=== PATIENT | male | born 1960 | race African-American/Black ===

== ENCOUNTER 2016-07-25 11:53 | Emergency (ER) | payer OTHER ==
[~2016-07-25] VITALS: Ht 190.5 cm; Wt 100.0 kg
[~2016-07-25 11:53] MED LIST: ACET325S8 PO; APIX5TAB PO; BISA5TAB PO; GABA300C3 PO; INSU100V2 SQ; LANTUS2P SC; LEXA5SOL PO; LISI-360 PO; MILK2400 PO; NITR.4 SL; SIMV40 PO
[2016-07-25 11:56] VITALS: BP 149/82; PULSE 71; RESP 15; TEMP 98.5; O2SAT 98
[2016-07-25] MEDS ORDERED: SIMV40TA PO (12:10)
[2016-07-25] MEDS ORDERED: GABA300C5 PO (12:10)
[2016-07-25] MEDS ORDERED: GLIM4TAB PO (12:10)
[2016-07-25] MEDS ORDERED: LISI10TA3 PO (12:11)
--- NOTE | 2016-07-25 12:17 | PD ---
HPI Chief Complaint: Musculoskeletal Complaint Time Seen by Provider: 12:08 Travel History International Travel<30 days: No Contact w/Intl Traveler<30days: No Traveled to known affect area: No History of Present Illness HPI The patient is a 56-year-old after [place] male who presents emergency department for left hand swelling. The patient has a history of previous CVA, has difficulty using the left upper extremity. The patient was outside the wheelchair earlier today and noticed that his left hand was swollen. He does have decreased sensation to left upper extremity secondary to previous CVA denies any pain. He does complain of mild swelling to the left hand, but denies any obvious swelling to left arm. He denies any known trauma to the left hand, but does note decreased sensation secondary to his previous CVA. He denies any previous history of pulmonary embolism or DVT. The patient has taken Eliquis in the past, however, was taken off of the medication after he developed a bleeding ulcer, according to his report. Symptoms are mild, no known alleviating or exacerbating factors. PFSH Past Medical History Cardiovascular Problems: Yes (2014) Cerebrovascular Accident: Yes Diabetes: Yes Patient Takes Glucophage: No Diminished Hearing: No Myocardial Infarction: Yes Past Surgical History Other Surgery: Yes (THROAT AND ARM SURGERY PER PT) Social History Alcohol Use: No Tobacco Use: No Substance Use: No Allergies-Medications (Allergen,Severity, Reaction): Coded Allergies: No Known Allergies (Unverified , 03/23/15) Reported Meds & Prescriptions Reported Meds & Active Scripts Active Reported Lisinopril 10 Mg Tab 10 Mg PO DAILY Gabapentin 300 Mg Cap 300 Mg PO BID Glimepiride 4 Mg Tab 4 Mg PO BIDAC Simvastatin 40 Mg Tab 40 Mg PO HS Review of Systems Except as stated in HPI: all other systems reviewed are Neg Musculoskeletal: Positive: Edema, No: Pain Neurologic: Positive: Other (history of previous CVA with diminished ability to use the left upper extremity and decreased sensation of the left upper extremity) Physical Exam Narrative GENERAL: Awake, alert, 56-year-old male who appears his stated age and is in no acute respiratory distress. SKIN: Focused skin assessment warm/dry. HEAD: Atraumatic. Normocephalic. EYES: No injection or drainage. ENT: No nasal bleeding or discharge. Mucous membranes pink and moist. NECK: Trachea midline. No JVD. CARDIOVASCULAR: Regular rate and rhythm. No murmur appreciated. RESPIRATORY: No accessory muscle use. Clear to auscultation. Breath sounds equal bilaterally. GASTROINTESTINAL: Abdomen soft, non-tender, nondistended. Hepatic and splenic margins not palpable. MUSCULOSKELETAL: The left upper extremity does reveal swelling of the left hand. Positive left radial pulse. Contractures noted of the hand with diminished ability to fully extend and flex the left elbow as well as extend the left shoulder. No obvious edema noted of the left upper extremity. NEUROLOGICAL: Awake and alert. No obvious cranial nerve deficits. Diminished use of left upper extremity. Normal speech. PSYCHIATRIC: Appropriate mood and affect; insight and judgment normal. Data Data Last Documented VS Vital Signs Date Time Temp Pulse Resp B/P Pulse Ox O2 Delivery O2 Flow Rate FiO2 07/25/16 11:56 98.5 71 15 149/82 98 Orders Hand, Limited (2vws) (07/25/16 ) Us Arm Venous Doppler (07/25/16 ) MDM Medical Decision Making Medical Screen Exam Complete: Yes Emergency Medical Condition: Yes Medical Record Reviewed: Yes Interpretation(s) Ultrasound of the arm reveals no DVT identified. Excellent X-ray of the right hand reveals no acute bony findings. Differential Diagnosis Differential diagnoses includes dependent edema, fracture, contusion, hematoma, DVT. Narrative Course X-ray left hand was obtained. Ultrasound of the left upper extremity was ordered. X-rays negative for fracture. Ultrasound is negative for DVT. Most likely this is dependent edema secondary to heat and inability to use left upper 70 secondary to previous CVA. The patient is advised elevate the affected extremity and apply ice as needed. Patient is stable for outpatient follow-up. Diagnosis Primary Impression: Edema Qualified Code: R60.9 - Edema, unspecified type Patient Instructions: General Instructions Additional Instructions: Elevate the left arm, ice as needed, follow-up with your primary physician. Please provide a patient a copy of his ultrasound results and x-ray results at discharge. Disposition: 01 DISCHARGE HOME Condition: Stable Dre Ellison MD July 25, 2016 12:17
--- NOTE | 2016-07-25 14:15 | RADRPT ---
EXAM DATE/TIME: 07/25/2016 13:06 [facility] COMPARISON: No previous studies available for comparison. INDICATIONS : Left hand swelling. MEDICAL HISTORY : Stroke. SURGICAL HISTORY : None. ENCOUNTER: Initial ACUITY: 1 day PAIN SCORE: 0/10 LOCATION: Left hand. FINDINGS: Two view examination of the left hand demonstrates no destructive change, dislocation, or fracture. The joint spaces are maintained. Bony mineralization is normal. There is diffuse soft tissue swelli ng CONCLUSION: No acute bony findings Scot Montemayor MD on July 25, 2016 at 14:11 Board Certified Radiologist. This report was verified electronically.
--- NOTE | 2016-07-25 14:19 | RADRPT ---
EXAM DATE/TIME: 07/25/2016 12:27 [facility] COMPARISON: No previous studies available for comparison. INDICATIONS : Left arm swelling. MEDICAL HISTORY : Cerebrovascular accident. Heart attack. Diabetes. SURGICAL HISTORY : Throat and arm surgery per patient. ENCOUNTER: Initial ACUITY: 1 day PAIN SCORE: 6/10 LOCATION: Left arm FINDINGS: There is spontaneous flow documented in the brachial, basilic, cephalic, axillary, and subclavian vei ns. The vessels are compressible and augmentation response is documented. No filling defects are se en. The flow is phasic with respiration. Direction of flow in the jugular vein is caudal. CONCLUSION: No DVT identified. Nitin Vail MD on July 25, 2016 at 14:16 Board Certified Radiologist. This report was verified electronically.
[2016-07-25 14:55] VITALS: BP 149/82
== END 2016-07-25 14:59 | disposition home or self-care (01) ==
LOC: NEPE 11:53
DX: M79.89 Other specified soft tissue disorders (principal)
CPT/HCPCS: 73120; 93971

== ENCOUNTER 2016-09-01 04:45 | Inpatient (IN) | payer OTHER ==
[2016-09-01] VITALS (12 sets, daily range): BP systolic 119–191; BP diastolic 69–106; PULSE 78–104; RESP 16–18; TEMP 97.6–100.3; O2SAT 93–98
[~2016-09-01] VITALS: Ht 185.4 cm; Wt 98.4 kg
[~2016-09-01 04:45] MED LIST changes: -ACET325S8 PO; -APIX5TAB PO; -BISA5TAB PO; -GABA300C3 PO; +GABA300C5 PO; +GLIM4TAB PO; -INSU100V2 SQ; -LANTUS2P SC; -LEXA5SOL PO; -LISI-360 PO; +LISI10TA3 PO; -MILK2400 PO; -NITR.4 SL; -SIMV40 PO; +SIMV40TA PO
[2016-09-01] MEDS ORDERED: ATOR1TAB18 PO (04:52)
[2016-09-01] MEDS ORDERED: CARV6.252 PO (04:52)
[2016-09-01] MEDS ORDERED: LOPE2CAP PO (04:52)
[2016-09-01] MEDS ORDERED: ALBUAER3 INH (04:52)
[2016-09-01] MEDS ORDERED: SITA25 PO (04:52)
[2016-09-01] MEDS ORDERED: ONDANSETRON HCL 4 MG/2 ML VIAL ONE (04:54)
[2016-09-01] MEDS ORDERED: ONDANSETRON HCL 4 MG/2 ML VIAL IV PUSH ONE (05:00)
[2016-09-01] MEDS ORDERED: SODIUM CHLOR 0.9% 1000 ML INJ 1,000 ML IV ONE ×2 (05:00)
[2016-09-01] MEDS ORDERED: ACETAMINOPHEN 325 MG TAB PO ONE (05:00)
[2016-09-01 05:15] LABS: BASOPHIL % 0.5 % (0.0-2.0); EOSINOPHIL # 0.1 TH/MM3 (0-0.4); EOSINOPHIL % 0.9 % (0.0-4.0); HEMATOCRIT 36.4 % (39.0-51.0); HEMO FLAGS DIFF FINAL; LYMPH % 11.1 % (9.0-44.0); LYMPHOCYTE # 0.7 TH/MM3 (1.0-4.8); MONO % 4.8 % (0.0-8.0); NEUT % 82.7 % (16.0-70.0); PLATELET COUNT 191 TH/MM3 (150-450); RED BLOOD COUNT 4.14 MIL/MM3 (4.50-5.90); RED CELL DISTRIBUTION WIDTH 14.2 % (11.6-17.2); WHITE BLOOD COUNT 6.1 TH/MM3 (4.0-11.0)
[2016-09-01 05:26] LABS: BLOOD GAS VENOUS BASE EXCESS -6.9 mmol/L (-2-2); BLOOD GAS VENOUS HCO3 18 mmol/L (22-26); BLOOD GAS VENOUS O2 CONTENT 12.7 Vol % (9.0-17.0); BLOOD GAS VENOUS O2 HGB SAT 79 % (70-76); BLOOD GAS VENOUS PCO2 35 mmHg (44-48); BLOOD GAS VENOUS PO2 48 mmHg (35-40); BLOOD GAS VENOUS pH 7.33 (7.360-7.400); CRITICAL VALUE NO; FIO2 21 %; OXYGEN DEVICE ROOM AIR; TEMP CORR TO 98.6
[2016-09-01 05:27] LABS: DRAW SITE LEFT HAND; STAT YES
[2016-09-01 05:33] LABS: APTT (PATIENT) 18.3 SEC (24.3-30.1)
[2016-09-01 05:36] LABS: BACTERIA, URINE RARE /hpf; BLOOD, URINE SMALL (NEG); COMMENT (UR) CATH-CULTURE IND; CULTURE IF INDICATED CATH CULTURE IND; GLUCOSE,URINE 300 mg/dL (NEG); KETONE, URINE NEG (NEG); MUCUS URINE FEW /lpf (OCC); NITRITE,URINE NEG (NEG); PH, URINE 5.5 (5.0-8.5); SQUAMOUS EPITHELIAL CELL URINE 2 /hpf (0-5); URINE COLOR YELLOW (YELLW/STRAW)
[2016-09-01 05:37] LABS: ALT (GPT) 31 U/L (12-78); ANION GAP 9 MEQ/L (5-15); AST (GOT) 23 U/L (15-37); BICARBONATE 20.5 MEQ/L (21.0-32.0); BLOOD UREA NITROGEN 22 MG/DL (7-18); CHLORIDE 116 MEQ/L (98-107); GLOMERULAR FILTRATION RATE 37 ML/MIN (>89); MAGNESIUM 1.6 MG/DL (1.5-2.5); POTASSIUM 4.4 MEQ/L (3.5-5.1); SODIUM (NA) 145 MEQ/L (136-145)
--- NOTE | 2016-09-01 05:38 | PD ---
HPI Chief Complaint: GI Complaint Time Seen by Provider: 04:53 Travel History International Travel<30 days: No Contact w/Intl Traveler<30days: No Traveled to known affect area: No History Past Medical History Cardiovascular Problems: Yes (2014) Cerebrovascular Accident: Yes Diabetes: Yes Patient Takes Glucophage: Yes Hearing: No Myocardial Infarction: Yes Tetanus Vaccination: Unknown Influenza Vaccination: Yes Vision or Eye Problem: No Past Surgical History Other Surgery: Yes (THROAT AND ARM SURGERY PER PT) Social History Tobacco Use in Home: No Alcohol Use: No Tobacco Use: No Substance Use: No Allergies-Medications (Allergen,Severity, Reaction): Coded Allergies: No Known Allergies (Unverified , 09/01/16) Reported Meds & Prescriptions Reported Meds & Active Scripts Active Reported Januvia (Sitagliptin Phosphate) 25 Mg Tab 25 Mg PO DAILY Carvedilol 6.25 Mg Tab 6.25 Mg PO BID Proair Hfa 8.5 GM Inh (Albuterol Sulfate) 90 Mcg/Act Aer 2 Puff INH Q6H PRN 108 mcg/actuation Loperamide (Loperamide HCl) 2 Mg Cap 2 Mg PO DIRECTED PRN One capsule after each loose stool. Not to exceed 8 capsules per day. Atorvastatin (Atorvastatin Calcium) 80 Mg Tab 80 Mg PO HS Gabapentin 300 Mg Cap 300 Mg PO BID Glimepiride 4 Mg Tab 4 Mg PO BIDAC Data Data Last Documented VS Vital Signs Date Time Temp Pulse Resp B/P Pulse Ox O2 Delivery O2 Flow Rate FiO2 09/01/16 04:58 16 96 Room Air 09/01/16 04:47 100.3 104 191/106 Orders Ondansetron Inj (Zofran Inj) (09/01/16 04:54) Complete Blood Count With Diff (09/01/16 04:53) Comprehensive Metabolic Panel (09/01/16 04:53) Prothrombin Time / Inr (Pt) (09/01/16 04:53) Act Partial Throm Time (Ptt) (09/01/16 04:53) Lactic Acid Sepsis Protocol (09/01/16 04:53) Magnesium (Mg) (09/01/16 04:53) Phosphorus (Po4) (09/01/16 04:53) Lipase (09/01/16 04:53) Ckmb (Isoenzyme) Profile (09/01/16 04:53) Troponin I (09/01/16 04:53) Urinalysis - C+S If Indicated (09/01/16 04:53) Blood Culture (09/01/16 04:53) Chest, Single Ap (09/01/16 04:53) Blood Gas Venous (Vbg) (09/01/16 04:53) Blood Glucose (09/01/16 04:53) Ecg Monitoring (09/01/16 04:53) Iv Access Insert/Monitor (09/01/16 04:53) Oximetry (09/01/16 04:53) Oxygen Administration (09/01/16 04:53) Acetaminophen (Tylenol) (09/01/16 05:00) Ct Abd/Pel W Iv Contrast(Rout) (09/01/16 04:53) Ondansetron Inj (Zofran Inj) (09/01/16 05:00) Sodium Chlor 0.9% 1000 Ml Inj (Ns 1000 M (09/01/16 05:00) Sodium Chlor 0.9% 1000 Ml Inj (Ns 1000 M (09/01/16 05:00) Urine Culture (09/01/16 05:10) CKMB (09/01/16 04:50) CKMB% (09/01/16 04:50) Iodixanol 320 Inj (Eps) (Visipaque 320 I (09/01/16 05:51) Electrocardiogram (09/01/16 ) Stool Ova And Parasite Screen (09/01/16 05:53) C Diff Toxin Pcr (09/01/16 05:53) Labs Laboratory Tests Test 09/01/16 09/01/16 09/01/16 04:50 05:10 05:16 White Blood Count 6.1 TH/MM3 Red Blood Count 4.14 MIL/MM3 Hemoglobin 12.0 GM/DL Hematocrit 36.4 % Mean Corpuscular Volume 88.0 FL Mean Corpuscular Hemoglobin 29.0 PG Mean Corpuscular Hemoglobin 33.0 % Concent Red Cell Distribution Width 14.2 % Platelet Count 191 TH/MM3 Mean Platelet Volume 9.2 FL Neutrophils (%) (Auto) 82.7 % Lymphocytes (%) (Auto) 11.1 % Monocytes (%) (Auto) 4.8 % Eosinophils (%) (Auto) 0.9 % Basophils (%) (Auto) 0.5 % Neutrophils # (Auto) 5.0 TH/MM3 Lymphocytes # (Auto) 0.7 TH/MM3 Monocytes # (Auto) 0.3 TH/MM3 Eosinophils # (Auto) 0.1 TH/MM3 Basophils # (Auto) 0.0 TH/MM3 CBC Comment DIFF FINAL Differential Comment Prothrombin Time 11.0 SEC Prothromb Time International 1.0 RATIO Ratio Activated Partial 18.3 SEC Thromboplast Time Sodium Level 145 MEQ/L Potassium Level 4.4 MEQ/L Chloride Level 116 MEQ/L Carbon Dioxide Level 20.5 MEQ/L Anion Gap 9 MEQ/L Blood Urea Nitrogen 22 MG/DL Creatinine 1.90 MG/DL Estimat Glomerular Filtration 37 ML/MIN Rate Random Glucose 228 MG/DL Lactic Acid Level 1.6 mmol/L Calcium Level 8.5 MG/DL Phosphorus Level 2.0 MG/DL Magnesium Level 1.6 MG/DL Total Bilirubin 0.6 MG/DL Aspartate Amino Transf 23 U/L (AST/SGOT) Alanine Aminotransferase 31 U/L (ALT/SGPT) Alkaline Phosphatase 86 U/L Total Creatine Kinase 157 U/L Creatine Kinase MB 4.3 NG/ML Troponin I 0.39 NG/ML Total Protein 7.8 GM/DL Albumin 3.4 GM/DL Lipase 110 U/L Urine Color YELLOW Urine Turbidity CLEAR Urine pH 5.5 Urine Specific [place] 1.018 Urine Protein 30 mg/dL Urine Glucose (UA) 300 mg/dL Urine Ketones NEG mg/dL Urine Occult Blood SMALL Urine Nitrite NEG Urine Bilirubin NEG Urine Urobilinogen LESS THAN 2.0 MG/DL Urine Leukocyte Esterase NEG Urine RBC 1 /hpf Urine WBC 1 /hpf Urine Squamous Epithelial 2 /hpf Cells Urine Bacteria RARE /hpf Urine Mucus FEW /lpf Microscopic Urinalysis Comment CATH-CULTURE IND Blood Gas Puncture Site LEFT HAND Blood Gas Patient Temperature 98.6 Venous Blood pH 7.33 Venous Blood Partial Pressure 35 mmHg CO2 Venous Blood Partial Pressure 48 mmHg O2 Venous Blood HCO3 18 mmol/L Venous Blood Oxygen Saturation 79 % Venous Blood Oxygen Content 12.7 Vol % Venous Blood Base Excess -6.9 mmol/L Oxygen Delivery Device ROOM AIR Blood Gas Inspired Oxygen 21 % Edward Benites MD Sep 01, 2016 05:38
[2016-09-01 05:40] LABS: ALKALINE PHOSPHATASE 86 U/L (45-117); CREATINE KINASE 157 U/L (39-308); TOTAL BILIRUBIN ADULT 0.6 MG/DL (0.2-1.0)
--- NOTE | 2016-09-01 05:50 | RADRPT ---
EXAM DATE/TIME: 09/01/2016 04:57 [facility] COMPARISON: No previous studies available for comparison. INDICATIONS : Chest pain. MEDICAL HISTORY : None. SURGICAL HISTORY : None. ENCOUNTER: Initial ACUITY: 1 day PAIN SCORE: 0/10 LOCATION: Bilateral chest FINDINGS: There is mild prominence of the interstitial markings mainly on the left. Heart and mediastinum are u nremarkable for technique. CONCLUSION: Mild prominence of the interstitial markings. Ambrocio Brewster MD on September 01, 2016 at 5:48 Board Certified Radiologist. This report was verified electronically.
[2016-09-01] MEDS ORDERED: IODIXANOL 320 MG/ML 50 ML VIAL (for EPS) IV ONE (05:51)
[2016-09-01 05:52] LABS: CKMB 4.3 NG/ML (0.5-3.6)
--- NOTE | 2016-09-01 06:10 | PD ---
HPI Chief Complaint: GI Complaint Time Seen by Provider: 04:53 Travel History International Travel<30 days: No Contact w/Intl Traveler<30days: No Traveled to known affect area: No History of Present Illness HPI Patient is a 56-year-old male presents from home for evaluation of sudden onset nausea vomiting and fever tonight. Patient has a history of stroke leaving left -sided deficits. States symptoms are moderate and progressive, nonbloody and nonbilious vomiting. Denies any cough denies any shortness of breath denies any abdominal pain. Denies a rash. PFSH Past Medical History Cardiovascular Problems: Yes (2014) Cerebrovascular Accident: Yes Diabetes: Yes Patient Takes Glucophage: Yes Diminished Hearing: No Myocardial Infarction: Yes Tetanus Vaccination: Unknown Influenza Vaccination: Yes Past Surgical History Other Surgery: Yes (THROAT AND ARM SURGERY PER PT) Social History Alcohol Use: No Tobacco Use: No Substance Use: No Allergies-Medications (Allergen,Severity, Reaction): Coded Allergies: No Known Allergies (Unverified , 09/01/16) Reported Meds & Prescriptions Reported Meds & Active Scripts Active Reported Januvia (Sitagliptin Phosphate) 25 Mg Tab 25 Mg PO DAILY Carvedilol 6.25 Mg Tab 6.25 Mg PO BID Proair Hfa 8.5 GM Inh (Albuterol Sulfate) 90 Mcg/Act Aer 2 Puff INH Q6H PRN 108 mcg/actuation Loperamide (Loperamide HCl) 2 Mg Cap 2 Mg PO DIRECTED PRN One capsule after each loose stool. Not to exceed 8 capsules per day. Atorvastatin (Atorvastatin Calcium) 80 Mg Tab 80 Mg PO HS Gabapentin 300 Mg Cap 300 Mg PO BID Glimepiride 4 Mg Tab 4 Mg PO BIDAC Review of Systems Except as stated in HPI: all other systems reviewed are Neg Physical Exam Narrative GENERAL: Well-developed well-nourished, contractured left upper extremity, quite pleasant mildly confused, nontoxic appearance. He does vomit in the emergency department. SKIN: No rash no wound or skin breakdown. HEAD: Atraumatic. Normocephalic. EYES: Pupils equal and round. No scleral icterus. No injection or drainage. ENT: No nasal bleeding or discharge. Mucous membranes pink and moist. NECK: Trachea midline. No JVD. CARDIOVASCULAR: Regular rate and rhythm. No murmur appreciated. RESPIRATORY: No accessory muscle use. Clear to auscultation. Breath sounds equal bilaterally. GASTROINTESTINAL: Abdomen soft, non-tender, nondistended. Hepatic and splenic margins not palpable. MUSCULOSKELETAL: No obvious deformities. No clubbing. No cyanosis. No edema. NEUROLOGICAL: Awake and alert. No obvious cranial nerve deficits. Contracture of the left upper extremity, some weakness of left lower extremity. Normal speech. This is his baseline neurologic exam after discussion with his . PSYCHIATRIC: Appropriate mood and affect; insight and judgment normal. Data Data Last Documented VS Vital Signs Date Time Temp Pulse Resp B/P Pulse Ox O2 Delivery O2 Flow Rate FiO2 09/01/16 06:37 96 21 09/01/16 04:58 16 Room Air 09/01/16 04:47 100.3 104 191/106 Orders Ondansetron Inj (Zofran Inj) (09/01/16 04:54) Complete Blood Count With Diff (09/01/16 04:53) Comprehensive Metabolic Panel (09/01/16 04:53) Prothrombin Time / Inr (Pt) (09/01/16 04:53) Act Partial Throm Time (Ptt) (09/01/16 04:53) Lactic Acid Sepsis Protocol (09/01/16 04:53) Magnesium (Mg) (09/01/16 04:53) Phosphorus (Po4) (09/01/16 04:53) Lipase (09/01/16 04:53) Ckmb (Isoenzyme) Profile (09/01/16 04:53) Troponin I (09/01/16 04:53) Urinalysis - C+S If Indicated (09/01/16 04:53) Blood Culture (09/01/16 04:53) Chest, Single Ap (09/01/16 04:53) Blood Gas Venous (Vbg) (09/01/16 04:53) Blood Glucose (09/01/16 04:53) Ecg Monitoring (09/01/16 04:53) Iv Access Insert/Monitor (09/01/16 04:53) Oximetry (09/01/16 04:53) Oxygen Administration (09/01/16 04:53) Acetaminophen (Tylenol) (09/01/16 05:00) Ct Abd/Pel W Iv Contrast(Rout) (09/01/16 04:53) Ondansetron Inj (Zofran Inj) (09/01/16 05:00) Sodium Chlor 0.9% 1000 Ml Inj (Ns 1000 M (09/01/16 05:00) Sodium Chlor 0.9% 1000 Ml Inj (Ns 1000 M (09/01/16 05:00) Urine Culture (09/01/16 05:10) CKMB (09/01/16 04:50) CKMB% (09/01/16 04:50) Iodixanol 320 Inj (Eps) (Visipaque 320 I (09/01/16 05:51) Electrocardiogram (09/01/16 ) C Diff Toxin Pcr (09/01/16 05:53) Vancomycin Inj (Vancomycin Inj) (09/01/16 06:30) Piperacil-Tazo 2.25 Gm Premix (Zosyn 2.2 (09/01/16 06:30) Admit To Inpatient (09/01/16 ) Vital Signs (Adult) Q4H (09/01/16 06:31) Activity Oob With Assistance (09/01/16 06:31) Box Lining Machine Operator / Telemetry .CONTINUOUS (09/01/16 06:31) Intake + Output RUBÉN.QSHIFT (09/01/16 06:31) Sodium Chlor 0.9% 1000 Ml Inj (Ns 1000 M (09/01/16 06:31) Sodium Chloride 0.9% Flush (Ns Flush) (09/01/16 06:45) Sodium Chloride 0.9% Flush (Ns Flush) (09/01/16 09:00) Acetaminophen (Tylenol) (09/01/16 06:45) Ondansetron Inj (Zofran Inj) (09/01/16 06:45) Comprehensive Metabolic Panel (09/02/16 06:00) Complete Blood Count With Diff (09/02/16 06:00) Resp Oxygen Alexander C Titrat 1-4 L (09/01/16 ) Case Management Consult (09/01/16 06:31) Enoxaparin Inj (Lovenox Inj) (09/01/16 08:00) Scd Bilateral/Knee High RUBÉN.BID (09/01/16 06:31) Tang Bilateral/Knee High RUBÉN.QSHIFT (09/01/16 06:31) Docusate Sodium-Senna (Afia-Colace) (09/01/16 09:00) Magnesium Hydroxide Liq (Milk Of Magnesi (09/01/16 06:45) Sennosides (Senokot) (09/01/16 06:45) Bisacodyl Supp (Dulcolax Supp) (09/01/16 06:45) Lactulose Liq (Lactulose Liq) (09/01/16 06:45) Inpatient Certification (09/01/16 ) Creatine Kinase (Cpk) (09/01/16 06:31) Creatine Kinase (Cpk) (09/01/16 12:31) Troponin I (09/01/16 06:31) Troponin I (09/01/16 12:31) Electrocardiogram (09/01/16 06:45) Electrocardiogram (09/01/16 18:45) Resp Oxygen Alexander C Titrat 1-4 L (09/01/16 ) Pt Request For Service (09/01/16 06:31) Piperacil-Tazo 4.5 Gm Premix (Zosyn 4.5 (09/01/16 07:00) Consult Cardiology (09/01/16 ) Admit Order (Ed Use Only) (09/01/16 ) Consult Nephrology (09/01/16 ) Labs Laboratory Tests Test 09/01/16 09/01/16 09/01/16 04:50 05:10 05:16 White Blood Count 6.1 TH/MM3 Red Blood Count 4.14 MIL/MM3 Hemoglobin 12.0 GM/DL Hematocrit 36.4 % Mean Corpuscular Volume 88.0 FL Mean Corpuscular Hemoglobin 29.0 PG Mean Corpuscular Hemoglobin 33.0 % Concent Red Cell Distribution Width 14.2 % Platelet Count 191 TH/MM3 Mean Platelet Volume 9.2 FL Neutrophils (%) (Auto) 82.7 % Lymphocytes (%) (Auto) 11.1 % Monocytes (%) (Auto) 4.8 % Eosinophils (%) (Auto) 0.9 % Basophils (%) (Auto) 0.5 % Neutrophils # (Auto) 5.0 TH/MM3 Lymphocytes # (Auto) 0.7 TH/MM3 Monocytes # (Auto) 0.3 TH/MM3 Eosinophils # (Auto) 0.1 TH/MM3 Basophils # (Auto) 0.0 TH/MM3 CBC Comment DIFF FINAL Differential Comment Prothrombin Time 11.0 SEC Prothromb Time International 1.0 RATIO Ratio Activated Partial 18.3 SEC Thromboplast Time Sodium Level 145 MEQ/L Potassium Level 4.4 MEQ/L Chloride Level 116 MEQ/L Carbon Dioxide Level 20.5 MEQ/L Anion Gap 9 MEQ/L Blood Urea Nitrogen 22 MG/DL Creatinine 1.90 MG/DL Estimat Glomerular Filtration 37 ML/MIN Rate Random Glucose 228 MG/DL Lactic Acid Level 1.6 mmol/L Calcium Level 8.5 MG/DL Phosphorus Level 2.0 MG/DL Magnesium Level 1.6 MG/DL Total Bilirubin 0.6 MG/DL Aspartate Amino Transf 23 U/L (AST/SGOT) Alanine Aminotransferase 31 U/L (ALT/SGPT) Alkaline Phosphatase 86 U/L Total Creatine Kinase 157 U/L Creatine Kinase MB 4.3 NG/ML Troponin I 0.39 NG/ML Total Protein 7.8 GM/DL Albumin 3.4 GM/DL Lipase 110 U/L Urine Color YELLOW Urine Turbidity CLEAR Urine pH 5.5 Urine Specific [place] 1.018 Urine Protein 30 mg/dL Urine Glucose (UA) 300 mg/dL Urine Ketones NEG mg/dL Urine Occult Blood SMALL Urine Nitrite NEG Urine Bilirubin NEG Urine Urobilinogen LESS THAN 2.0 MG/DL Urine Leukocyte Esterase NEG Urine RBC 1 /hpf Urine WBC 1 /hpf Urine Squamous Epithelial 2 /hpf Cells Urine Bacteria RARE /hpf Urine Mucus FEW /lpf Microscopic Urinalysis Comment CATH-CULTURE IND Blood Gas Puncture Site LEFT HAND Blood Gas Patient Temperature 98.6 Venous Blood pH 7.33 Venous Blood Partial Pressure 35 mmHg CO2 Venous Blood Partial Pressure 48 mmHg O2 Venous Blood HCO3 18 mmol/L Venous Blood Oxygen Saturation 79 % Venous Blood Oxygen Content 12.7 Vol % Venous Blood Base Excess -6.9 mmol/L Oxygen Delivery Device ROOM AIR Blood Gas Inspired Oxygen 21 % [facility] Medical Decision Making Medical Screen Exam Complete: Yes Emergency Medical Condition: Yes Interpretation(s) EKG shows sinus tachycardia at a rate of 105, borderline left axis deviation, early R-wave transition, LVH, T-wave inversions in V2 through V6, no ST segment elevations. This is an abnormal EKG but not meet criteria for STEMI. EKG was repeated and shows no change. Differential Diagnosis Sepsis, pneumonia, acute abdomen, electro-light abnormality, abnormal EKG, elevated troponin. Narrative Course Patient was roomed in emergency department, he has no complaints of chest pain or shortness of breath. His EKG is notably abnormal, when his troponin returned elevated at 0.35 EKG was repeated and showed no evolving changes. It does not meet criteria for acute STEMI. The patient's abdomen is benign but given his nausea and vomiting symptoms a CT abdomen is warranted benefits outweighing risks. The CT does reveal a pneumonia of the lower lobe. The patient was started on broad-spectrum antibiotic. His lactic acid is normal precluding the need for aggressive fluid resuscitation. The patient does meet Sirs criteria given temperature and heart rate, will be started on broad-spectrum antibiotics, renal dosing. The patient was discussed with Dr. Corbin for admission to the floor. She is agreeable. Patient was also discussed with Dr. Medina at shift change she was taking over the patient's care. Critical Care Narrative Aggregate critical care time was 35 minutes. Time to perform other separately billable procedures was not included in the critical care time. My time did not include minutes spent treating any other patients simultaneously or on activities that did not directly contribute to the patient's treatment. The services I provided to this patient were to treat and/or prevent clinically significant deterioration that could result in: , Disability, End organ damage. I provided critical care services requiring my management, as noted below: Chart data review, documentation time, medication orders and management, vital sign assessments/reviewing monitor data, ordering and reviewing lab tests, ordering and interpreting/reviewing x-rays and diagnostic studies, care of the patient and discussion of the patient with the admitting physicians. Diagnosis Primary Impression: PNA (pneumonia) Additional Impressions: Sepsis Elevated troponin Abnormal EKG Admitting Information Admitting Physician Requests: Admit Condition: Stable Edward Benites MD Sep 01, 2016 06:10
--- NOTE | 2016-09-01 06:18 | RADRPT ---
EXAM DATE/TIME: 09/01/2016 05:51 [facility] COMPARISON: CHEST SINGLE AP, September 01, 2016, 4:57. INDICATIONS : Diffuse abdominal pain with nausea, vomiting, and diarrhea. IV CONTRAST: 50 cc Visipaque (iodixanol) IV ORAL CONTRAST: No oral contrast ingested. RADIATION DOSE: 17.04 CTDIvol (mGy) MEDICAL HISTORY : Cardiovascular disease. Diabetes mellitus type 2. CVA. SURGICAL HISTORY : None. ENCOUNTER: Initial ACUITY: 1 day PAIN SCALE: 10/10 LOCATION: Bilateral abdomen TECHNIQUE: Volumetric scanning of the abdomen and pelvis was performed. Using automated exposure control and ad justment of the mA and/or kV according to patient size, radiation dose was kept as low as reasonably achievable to obtain optimal diagnostic quality images. FINDINGS: CT Abdomen: The liver, spleen, pancreas, kidneys, adrenals are unremarkable. There is no evidence for any appreciable pathological adenopathy, free fluid, or bowel obstruction. There is airspace proces s in both lung bases worse on the left and pneumonia is suspected. There is slight prominent fat unde rneath the umbilicus without evidence for bowel herniation. CT pelvis: There is no evidence for mass, abscess formation, or any significant adenopathy within the pelvis. The prostate gland is inhomogeneous and measures 3.7 x 4.1 cm in AP and transverse diameters and nonspecific. There is moderate amount of stool throughout the colon. CONCLUSION: Bibasilar air space process worse on the left suspicious for pneumonia. Ambrocio Brewster MD on September 01, 2016 at 6:13 Board Certified Radiologist. This report was verified electronically.
[2016-09-01] MEDS ORDERED: PIPERACIL-TAZO 2.25 GM PREMIX 50 ML IV ONE (06:30)
[2016-09-01] MEDS ORDERED: VANCOMYCIN INJ 1,000 MG in SODIUM CHLOR 0.9% 250 ML INJ 250 ML IV ONE (06:30)
[2016-09-01] MEDS ORDERED: ACETAMINOPHEN 325 MG TAB PO PRN (06:45)
[2016-09-01] MEDS ORDERED: Vancomycin Consult Pharmacy 1 EA OTHER SCH (06:45)
[2016-09-01] MEDS ORDERED: SODIUM CHLORIDE 0.9% FLUSH 10 ML FLUSH IV FLUSH PRN (06:45)
[2016-09-01] MEDS ORDERED: MAGNESIUM HYDROXIDE SUSP 30 ML CUP PO PRN (06:45)
[2016-09-01] MEDS ORDERED: LACTULOSE SYRUP 20 GM/30 ML CUP PO PRN (06:45)
[2016-09-01] MEDS ORDERED: ONDANSETRON HCL 4 MG/2 ML VIAL IVP PRN (06:45)
[2016-09-01] MEDS ORDERED: BISACODYL 10 MG SUPP RECTAL PRN (06:45)
[2016-09-01] MEDS ORDERED: SENNOSIDES 8.6 MG TAB PO PRN (06:45)
[2016-09-01] MEDS ORDERED: PIPERACIL-TAZO 4.5 GM PREMIX 100 ML IV SCH (07:00)
--- NOTE | 2016-09-01 08:05 | PD.CONS ---
HPI Service CV Consult Requested By Reason for Consult elevated troponin and abnormal ECG Primary Care Physician Joey Helm History of Present Illness Here with HTN. hyperlipidemia for pneumonia. He denies chest pain or palpitations. He has been short of breath. He states he had an LA and CVA 2 years ago f/b an EST that he could not complete. No other cardiac workup was entertained per the patient (Sai Duran) Review of Systems Consitutional: DENIES: Fatigue, Fever, Chills, Weight gain, Weight loss Eyes: DENIES: Amaurosis Fugax, Change in vision HEENT: DENIES: Lightheadedness, Change in hearing Respiratory: COMPLAINS OF: Shortness of breath, DENIES: See HPI, Cough, Snoring, Wheezing, Sputum production Cardiovascular: DENIES: See HPI, Chest pain, Palpitations, Syncope, Tachycardia Gastrointestinal: DENIES: Nausea, Vomiting, Change in bowel habits, Reflux, Bloody stools, Melena Genitourinary: DENIES: Urinary incontinence, Difficulty voiding Integumentary: DENIES: Rash Neurologic: DENIES: Tingling or numbness, Memory problems, Poor Balance, Stroke symptoms Musculoskeletal: DENIES: Joint pain, Muscle pain, Limited range of motion, Back pain Psychiatric: DENIES: Anxiety, Depression, Sleep disturbances Hematologic: DENIES: Bruising tendencies, Bleeding tendencies Endocrine: DENIES: Weight gain, Weight loss, Thyroid disease (Sai Duran ) Past Family Social History Allergies: Coded Allergies: No Known Allergies (Unverified , 09/01/16) Past Medical History see HPI diabetes Past Surgical History throat surgery Reported Medications Reported Meds & Active Scripts Active Reported Januvia (Sitagliptin Phosphate) 25 Mg Tab 25 Mg PO DAILY Carvedilol 6.25 Mg Tab 6.25 Mg PO BID Proair Hfa 8.5 GM Inh (Albuterol Sulfate) 90 Mcg/Act Aer 2 Puff INH Q6H PRN 108 mcg/actuation Loperamide (Loperamide HCl) 2 Mg Cap 2 Mg PO DIRECTED PRN One capsule after each loose stool. Not to exceed 8 capsules per day. Atorvastatin (Atorvastatin Calcium) 80 Mg Tab 80 Mg PO HS Gabapentin 300 Mg Cap 300 Mg PO BID Glimepiride 4 Mg Tab 4 Mg PO BIDAC Active Ordered Medications Current Medications Medications (Trade) Dose Ordered Sig/Mansi Route Start Time Stop Time Status Last Admin (NS 1000 ml Inj) 1,000 ml @ 100 mls/hr Q10H IV 09/01/16 06:31 (NS Flush) 2 ml UNSCH PRN IV FLUSH 09/01/16 06:45 (NS Flush) 2 ml BID IV FLUSH 09/01/16 09:00 (Tylenol) 650 mg Q4H PRN PO 09/01/16 06:45 (Zofran Inj) 4 mg Q6H PRN IVP 09/01/16 06:45 (Lovenox Inj) 40 mg Q24H SQ 09/01/16 08:00 (Afia-Colace) 1 tab BID PO 09/01/16 09:00 (Milk Of Magnesia Liq) 30 ml Q12H PRN PO 09/01/16 06:45 (Senokot) 17.2 mg Q12H PRN PO 09/01/16 06:45 (Dulcolax Supp) 10 mg DAILY PRN RECTAL 09/01/16 06:45 Lactulose 30 ml 30 ml DAILY PRN PO 09/01/16 06:45 Pharmacy Profile Note 0 ml @ 0 mls/hr UNSCH OTHER 09/01/16 06:45 Vancomycin HCl 1000 mg/Sodium Chloride 250 ml @ 250 mls/hr Q24H IV 09/02/16 06:00 (Zosyn 4.5 Gm Premix) 100 ml @ 200 mls/hr Q6H IV 09/01/16 13:00 Family History noncontributory Social History denies smoking, alcohol or substance abuse (Sai Duran) Physical Exam Vital Signs Vital Signs Date Time Temp Pulse Resp B/P Pulse Ox O2 Delivery O2 Flow Rate FiO2 09/01/16 07:08 99.3 95 18 159/84 95 Room Air 09/01/16 06:37 96 21 09/01/16 04:58 16 96 Room Air 09/01/16 04:58 96 Room Air 09/01/16 04:49 16 09/01/16 04:47 100.3 104 16 191/106 96 Physical Exam GENERAL: Well-nourished, well-developed patient in no apparent distress. NECK: No JVD. No carotid bruit. CARDIOVASCULAR: Regular rate and rhythm. S1/S2 no murmur, rub, or gallop. RESPIRATORY: No accessory muscle use. Clear to auscultation. Breath sounds equal bilaterally. GASTROINTESTINAL: Abdomen soft, non-tender, nondistended. MUSCULOSKELETAL: Extremities without clubbing, cyanosis, or edema. Laboratory Laboratory Tests Test 09/01/16 09/01/16 09/01/16 04:50 05:10 05:16 White Blood Count 6.1 Red Blood Count 4.14 Hemoglobin 12.0 Hematocrit 36.4 Mean Corpuscular Volume 88.0 Mean Corpuscular Hemoglobin 29.0 Mean Corpuscular Hemoglobin 33.0 Concent Red Cell Distribution Width 14.2 Platelet Count 191 Mean Platelet Volume 9.2 Neutrophils (%) (Auto) 82.7 Lymphocytes (%) (Auto) 11.1 Monocytes (%) (Auto) 4.8 Eosinophils (%) (Auto) 0.9 Basophils (%) (Auto) 0.5 Neutrophils # (Auto) 5.0 Lymphocytes # (Auto) 0.7 Monocytes # (Auto) 0.3 Eosinophils # (Auto) 0.1 Basophils # (Auto) 0.0 CBC Comment DIFF FINAL Differential Comment Prothrombin Time 11.0 Prothromb Time International 1.0 Ratio Activated Partial 18.3 Thromboplast Time Sodium Level 145 Potassium Level 4.4 Chloride Level 116 Carbon Dioxide Level 20.5 Anion Gap 9 Blood Urea Nitrogen 22 Creatinine 1.90 Estimat Glomerular Filtration 37 Rate Random Glucose 228 Lactic Acid Level 1.6 Calcium Level 8.5 Phosphorus Level 2.0 Magnesium Level 1.6 Total Bilirubin 0.6 Aspartate Amino Transf 23 (AST/SGOT) Alanine Aminotransferase 31 (ALT/SGPT) Alkaline Phosphatase 86 Total Creatine Kinase 157 Creatine Kinase MB 4.3 Troponin I 0.39 Total Protein 7.8 Albumin 3.4 Lipase 110 Urine Color YELLOW Urine Turbidity CLEAR Urine pH 5.5 Urine Specific [place] 1.018 Urine Protein 30 Urine Glucose (UA) 300 Urine Ketones NEG Urine Occult Blood SMALL Urine Nitrite NEG Urine Bilirubin NEG Urine Urobilinogen LESS THAN 2.0 Urine Leukocyte Esterase NEG Urine RBC 1 Urine WBC 1 Urine Squamous Epithelial 2 Cells Urine Bacteria RARE Urine Mucus FEW Microscopic Urinalysis Comment CATH-CULTURE IND Blood Gas Puncture Site LEFT HAND Blood Gas Patient Temperature 98.6 Venous Blood pH 7.33 Venous Blood Partial Pressure 35 CO2 Venous Blood Partial Pressure 48 O2 Venous Blood HCO3 18 Venous Blood Oxygen Saturation 79 Venous Blood Oxygen Content 12.7 Venous Blood Base Excess -6.9 Oxygen Delivery Device ROOM AIR Blood Gas Inspired Oxygen 21 Date/Time Procedure Status Source Growth 09/01/16 05:10 Urine Culture Worksheet Urine Catheterized Urine Pending 09/01/16 04:50 Aerobic Blood Culture Received Blood Peripheral Pending 09/01/16 04:50 Anaerobic Blood Culture Received Blood Peripheral Pending (Sai Duran) Result Diagram: 09/01/16 0450 09/01/16 0450 Assessment and Plan Problem List: (1) HTN (hypertension) (2) Abnormal ECG (3) Elevated troponin Assessment and Plan So far cardiac workup reveals troponin in the indeterminant range x 1. Wait for serial enzymes. If he requires coronary angiogram we will need to prehydrate him. His creatinine in 1.90. HTN - restart his home carvedilol 6.25 mg BID hyperlipidemia - restart hi atorvastatin 80 mg daily (Sai Duran) Assessment and Plan trend troponin EKG with deep T wave inversions. LVH vs ischemic. No CP. SOB with PNA CRI Cr 1.9 will see how things progress. If troponin remains relatively flat, we may consider SPECT due to Cr. If troponin trends further upward, he will need hydration and LHC. 2d echo. (Jeyson Gonzalez MD) Sai Duran Sep 01, 2016 08:05 Jeyson Gonzalez MD Sep 01, 2016 08:09
[2016-09-01] MEDS: DOCUSATE SODIUM 50 MG/SENNA 8.6 MG TAB PO SCH ×2 (08:12→21:00)
[2016-09-01] MEDS: SODIUM CHLORIDE 0.9% FLUSH 10 ML FLUSH IV FLUSH SCH ×2 (08:13→21:41)
--- NOTE | 2016-09-01 08:13 | HHI.HP ---
HPI Service [facility] Primary Care Physician Joey Helm Admission Diagnosis Sepsis, Elevated TN Diagnoses: Chief Complaint: Fever chills diarrhea on and off vomiting Travel History International Travel<30 Days: No Contact w/Intl Traveler <30 Da: No Traveled to Known Affected Are: No History of Present Illness Patient is a 56-year-old right handed male with history of hypertension, diabetes type 2 history of atrial fibrillation, history of CVA 2 with left- sided hemiparalysis baseline ambulates with a cane, history of CAD "silent AL" basically ambulates around with a cane for safety occasional incontinence with use in an independent living facility with 6 other individuals. In [facility]. Patient states that for the past week now has been having chills vomiting on and off diarrhea for the past 2 weeks 3 times a week E. He was prescribed some pills with no improvement. Last night vomiting with previously ingested food no hematemesis associated with shaking "feels cold" sweating. Called EMS at 3 AM . Patient complains of severe dryness in the mouth. Patient denies any cough cold shortness of breath or chest discomfort. On evaluation in the ER shows a deep T-wave inversion with indeterminate troponin. Now admitted for further evaluation. Patient at bedside complains of dry dryness and thirst. Review of Systems ROS Limitations: Speech Impaired Constitutional: COMPLAINS OF: Diaphoretic episodes, Chills Endocrine: DENIES: Heat/cold intolerance, Polydipsia, Polyuria, Polyphagia Eyes: DENIES: Blurred vision, Diplopia, Eye inflammation, Eye pain, Vision loss , Photosensitivity, Double Vision Ears, nose, mouth, throat: DENIES: Tinnitus, Hearing loss, Vertigo, Nasal discharge, Oral lesions, Throat pain, Hoarseness, Ear Pain, Running Nose, Epistaxis, Sinus Pain, Toothache, Odynophagia Respiratory: DENIES: Apneas, Cough, Snoring, Wheezing, Hemoptysis, Sputum production, Shortness of breath Cardiovascular: DENIES: Chest pain, Palpitations, Syncope, Dyspnea on Exertion , PND, Lower Extremity Edema, Orthopnea, Claudication Gastrointestinal: DENIES: Abdominal pain, Black stools, Bloody stools, Constipation, Diarrhea, Nausea, Vomiting, Difficulty Swallowing, Anorexia Genitourinary: COMPLAINS OF: Urinary incontinence, DENIES: Sexual dysfunction , Urinary frequency, Urgency, Hematuria, Dysuria, Nocturia, Penile Discharge, Testicular Pain, Testicular Swelling Musculoskeletal: DENIES: Joint pain, Muscle aches, Stiffness, Joint Swelling, Back pain, Neck pain Integumentary: DENIES: Abnormal pigmentation, Nail changes, Pruritus, Rash Hematologic/lymphatic: DENIES: Bruising, Lymphadenopathy Immunologic/allergic: DENIES: Eczema, Urticaria Neurologic: COMPLAINS OF: Abnormal gait (ambulates with a cane due to left- sided weakness) Psychiatric: DENIES: Anxiety, Confusion, Mood changes, Depression, Hallucinations, Agitation, Suicidal Ideation, Homicidal Ideation, Delusions Past Family Social History Past Medical History Hypertension, history of diabetes type 2 History of atrial fibrillation History of CVA 2 with residual left-sided weakness History of CAD "silent AL History of PUD in the past Past Surgical History Some form of throat surgery in 2016 at [facility] status post fall Reported Medications Gabapentin 300 mg twice a day loperamide 2 mg when necessary for diarrhea Albuterol when necessary Carvedilol 6.25 mg twice a day Januvia 25 mg daily Atorvastatin 80 mg at bedtime The omeprazole 4 mg twice a day Allergies: Coded Allergies: No Known Allergies (Unverified , 09/01/16) Family History Noncontributory Social History Quit smoking 2 years ago History of drinking quite of beer a day none for the past 5 years Used to smoke marijuana crit for the past 5 years Physical Exam Vital Signs Vital Signs Date Time Temp Pulse Resp B/P Pulse Ox O2 Delivery O2 Flow Rate FiO2 09/01/16 07:08 99.3 95 18 159/84 95 Room Air 09/01/16 06:37 96 21 09/01/16 04:58 16 96 Room Air 09/01/16 04:58 96 Room Air 09/01/16 04:49 16 09/01/16 04:47 100.3 104 16 191/106 96 Physical Exam GENERAL: This is a awake alert speech slightly soft slurred, in no apparent distress. SKIN: No rashes, ecchymoses or lesions. Cool and dry. HEAD: Atraumatic. Normocephalic. No temporal or scalp tenderness. EYES: Pupils equal round and reactive. Extraocular motions intact. No scleral icterus. No injection or drainage. ENT: Nose without bleeding, purulent drainage or septal hematoma. Throat without erythema,. Airway patent. Very dry oral mucosa NECK: Trachea midline. No JVD or lymphadenopathy. Supple, nontender, no meningeal signs. CARDIOVASCULAR: Regular rate and rhythm without murmurs, gallops, or rubs. RESPIRATORY: Clear to auscultation. Breath sounds equal bilaterally. No wheezes , rales, or rhonchi. GASTROINTESTINAL: Abdomen soft, non-tender, nondistended. No hepato-splenomegaly , or palpable masses. No guarding. Positive umbilical hernia MUSCULOSKELETAL: Extremities without clubbing, cyanosis, or edema. No joint tenderness, effusion, or edema noted. No calf tenderness. Negative Homans sign bilaterally. NEUROLOGICAL: Awake and alert. Cranial nerves II through XII intact. weak gag reflex. Motor and sensory grossly within normal limits. Five out of 5 muscle strength in all muscle groups. Speech slurred. Left-sided hemiparalysis Laboratory Laboratory Tests Test 09/01/16 09/01/16 09/01/16 04:50 05:10 05:16 White Blood Count 6.1 Red Blood Count 4.14 Hemoglobin 12.0 Hematocrit 36.4 Mean Corpuscular Volume 88.0 Mean Corpuscular Hemoglobin 29.0 Mean Corpuscular Hemoglobin 33.0 Concent Red Cell Distribution Width 14.2 Platelet Count 191 Mean Platelet Volume 9.2 Neutrophils (%) (Auto) 82.7 Lymphocytes (%) (Auto) 11.1 Monocytes (%) (Auto) 4.8 Eosinophils (%) (Auto) 0.9 Basophils (%) (Auto) 0.5 Neutrophils # (Auto) 5.0 Lymphocytes # (Auto) 0.7 Monocytes # (Auto) 0.3 Eosinophils # (Auto) 0.1 Basophils # (Auto) 0.0 CBC Comment DIFF FINAL Differential Comment Prothrombin Time 11.0 Prothromb Time International 1.0 Ratio Activated Partial 18.3 Thromboplast Time Sodium Level 145 Potassium Level 4.4 Chloride Level 116 Carbon Dioxide Level 20.5 Anion Gap 9 Blood Urea Nitrogen 22 Creatinine 1.90 Estimat Glomerular Filtration 37 Rate Random Glucose 228 Lactic Acid Level 1.6 Calcium Level 8.5 Phosphorus Level 2.0 Magnesium Level 1.6 Total Bilirubin 0.6 Aspartate Amino Transf 23 (AST/SGOT) Alanine Aminotransferase 31 (ALT/SGPT) Alkaline Phosphatase 86 Total Creatine Kinase 157 Creatine Kinase MB 4.3 Troponin I 0.39 Total Protein 7.8 Albumin 3.4 Lipase 110 Urine Color YELLOW Urine Turbidity CLEAR Urine pH 5.5 Urine Specific [place] 1.018 Urine Protein 30 Urine Glucose (UA) 300 Urine Ketones NEG Urine Occult Blood SMALL Urine Nitrite NEG Urine Bilirubin NEG Urine Urobilinogen LESS THAN 2.0 Urine Leukocyte Esterase NEG Urine RBC 1 Urine WBC 1 Urine Squamous Epithelial 2 Cells Urine Bacteria RARE Urine Mucus FEW Microscopic Urinalysis Comment CATH-CULTURE IND Blood Gas Puncture Site LEFT HAND Blood Gas Patient Temperature 98.6 Venous Blood pH 7.33 Venous Blood Partial Pressure 35 CO2 Venous Blood Partial Pressure 48 O2 Venous Blood HCO3 18 Venous Blood Oxygen Saturation 79 Venous Blood Oxygen Content 12.7 Venous Blood Base Excess -6.9 Oxygen Delivery Device ROOM AIR Blood Gas Inspired Oxygen 21 Date/Time Procedure Status Source Growth 09/01/16 05:10 Urine Culture Worksheet Urine Catheterized Urine Pending 09/01/16 04:50 Aerobic Blood Culture Received Blood Peripheral Pending 09/01/16 04:50 Anaerobic Blood Culture Received Blood Peripheral Pending Result Diagram: 09/01/1644909/01/16449 Imaging Last Impressions Chest X-Ray 09/01/16452 Signed Impressions: Service Date/Time: Thursday, September 01, 2016 04:57 - CONCLUSION: Mild prominence of the interstitial markings. Ambrocio Brewster MD Abdomen/Pelvis CT 09/01/16452 Signed Impressions: Service Date/Time: Thursday, September 01, 2016 05:51 - CONCLUSION: Bibasilar air space process worse on the left suspicious for pneumonia. Ambrocio Brewster MD Septic Shock Reassessment Heart: Regular rate and rhythm Lungs: Clear Skin: Warm Peripheral Pulses: Bounding Right Radial Bounding Left Radial Bounding Right Popliteal Bounding Left Popliteal Bounding Right Dorsalis Pedis Bounding Left Dorsalis Pedis Bounding Right Posterior Tibial Bounding Left Posterior Tibial Capillary Refill: Brisk Assessment and Plan Assessment and Plan 56-year-old male with history of CVA with dysarthria and left sided hemiparesispresenting with fever chills nausea vomiting on and off diarrhea Sepsis likely secondary to pneumonia Possible aspiration -Patient started on Zosyn. - CXR reviewed by me - Will get a swallowing evaluation weak gag reflex. With history of CVA/ dysarthria. 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 -give x 1 IV Phosphorous Chronic Diarrhea - abdominal exam- benign -Get stool studies, C diff -Consider GI consult -Monitor stool/bowel movement - Zofran IV prn for nausea/vomiting Hypertension History of CAD abnormal EKG with deep T-wave inversion no be no old EKG for comparison with history of CAD. Indeterminate troponin History of atrial fibrillation currently in sinus rhythm -Check an echo. Cardiology consulted -Continue on Coreg History of diabetes type 2 on oral hypoglycemics. -Check hemoglobin A1c check fingersticks 3 times a day at bedtime with sliding scale for now -Hold oral hypoglycemics. History of CVA with left-sided hemiparalysis with dysarthric -PT consult in am - Get speech to do a swallowing evaluation Lovenox subcutaneous for DVT prophylaxis continue PPI for GI prophylaxis Zofran IV prn Discussed Condition With Patient Physician Certification 2 Midnight Certification Type: Admission for Inpatient Services Order for Inpatient Services The services are ordered in accordance with Medicare regulations or non- Medicare payer requirements, as applicable. In the case of services not specified as inpatient-only, they are appropriately provided as inpatient services in accordance with the 2-midnight benchmark. Estimated LOS (days): 3 days is the estimated time the patient will need to remain in the hospital, assuming treatment plan goals are met and no additional complications. Post-Hospital Plan: Not yet determined Fly Medina MD Sep 01, 2016 08:13
[2016-09-01] MEDS: ENOXAPARIN SODIUM 40 MG/0.4 ML SYRINGE SQ SCH (08:17)
[2016-09-01] MEDS: SODIUM CHLOR 0.9% 1000 ML INJ 1,000 ML IV SCH ×2 (08:29→16:31)
[2016-09-01] MEDS ORDERED: GLUCAGON 1 MG/ML VIAL OTHER PRN (08:45)
[2016-09-01] MEDS ORDERED: DEXTROSE 50% IN WATER 50 ML VIAL(D50) IV PRN (08:45)
[2016-09-01] MEDS ORDERED: GLUCAGON 1 MG/ML VIAL IM PRN (08:45)
[2016-09-01] MEDS: CARVEDILOL 6.25 MG TAB PO SCH ×2 (09:49→21:41)
[2016-09-01] MEDS: ATORVASTATIN 80 MG TAB PO SCH (09:49)
[2016-09-01] MEDS ORDERED: SODIUM PHOSPHATE INJ 15 MMOL in SODIUM CHLORIDE 0.9% INJ 150 ML IV ONE (10:00)
[2016-09-01] MEDS: INSULIN NovoLIN REGULAR SUPPLEMENTAL SCALE SQ SCH ×3 (11:00→21:00)
--- NOTE | 2016-09-01 11:41 | EKG ---
Date Performed: 09/01/2016 Time Performed: 04:50:09 PTAGE: 56 years EKG: SINUS TACHYCARDIA with atrial abnormality Left ventricular hypertrophy with repolarization changes T-wave changes could also be secondary to ischemia NO PREVIOUS TRACING DOCTOR: Kenny Murillo Interpretating Date/Time 09/01/2016 11:40:00
--- NOTE | 2016-09-01 11:42 | EKG ---
Date Performed: 09/01/2016 Time Performed: 06:06:25 PTAGE: 56 years EKG: Sinus rhythm LEFT VENTRICULAR HYPERTROPHY AND ST-T CHANGE ABNORMAL ECG There has been progression of the T-wave a bnormalities in the inferior leads with improvement in the high lateral leads. Clinical correlation i s needed for possible ischemia. PREVIOUS TRACING 09/01/16 04.50.09 DOCTOR: Kenny Murillo Interpretating Date/Time 09/01/2016 11:41:03
[2016-09-01] MEDS: PIPERACIL-TAZO 4.5 GM PREMIX 100 ML IV SCH ×2 (13:54→18:45)
--- NOTE | 2016-09-01 15:32 | ECHRPT ---
Indication: Persistent atrial fibrillation CONCLUSIONS The left ventricular systolic function is low normal with an estimated ejection fraction in the rang e of 50- 55%. Wall thickness is measured at the upper limits of normal. Normal left ventricular size. The left atrial size is upper limits of normal. Mildly dilated proximal ascending aorta. Measured at 3.8 cm. Mild mitral valve regurgitation. There is trace tricuspid valve regurgitation. The estimated pulmonary arterial pressure is 30 mmHg. Normal estimated pulmonary pressures. The pulmonary valve is not well visualized. BP: 159 / 84 HR: 95 Rhythm: Sinus MEASUREMENTS (Male / Female) Normal Values Technical Quality:Good 2D ECHO LV Diastolic Diameter PLAX 4.3 cm 4.2 - 5.9 / 3.9 - 5.3 cm LV Systolic Diameter PLAX 3.4 cm IVS Diastolic Thickness 1.1 cm 0.6 - 1.0 / 0.6 - 0.9 cm LVPW Diastolic Thickness 1.1 cm 0.6 - 1.0 / 0.6 - 0.9 cm LV Relative Wall Thickness 0.5 RV Internal Dim ED PLAX 2.4 cm LVOT Diameter 2.2 cm Ascending Aorta Diameter 3.9 cm M-MODE Aortic Root Diameter MM 3.6 cm LA Systolic Diameter MM 4.1 cm LA Ao Ratio MM 1.1 AV Cusp Separation MM 2.3 cm DOPPLER AV Peak Velocity 104.0 cm/s AV Peak Gradient 4.3 mmHg LVOT Peak Velocity 127.0 cm/s LVOT Peak Gradient 6.5 mmHg AV Area Cont Eq pk 4.6 cm MR Peak Velocity 500.0 cm/s MR Peak Gradient 100.0 mmHg Mitral E Point Velocity 86.9 cm/s Mitral A Point Velocity 67.1 cm/s Mitral E to A Ratio 1.3 LV E' Lateral Velocity 9.8 cm/s Mitral E to LV E' Lateral Ratio 8.9 LV E' Septal Velocity 6.0 cm/s Mitral E to LV E' Septal Ratio 14.4 TR Peak Velocity 223.0 cm/s TR Peak Gradient 19.9 mmHg PV Peak Velocity 111.0 cm/s PV Peak Gradient 4.9 mmHg FINDINGS LEFT VENTRICLE The left ventricular systolic function is low normal with an estimated ejection fraction in the rang e of 50- 55%. Wall thickness is measured at the upper limits of normal. Normal left ventricular size. RIGHT VENTRICLE Normal right ventricular size and systolic function. LEFT ATRIUM The left atrial size is upper limits of normal. RIGHT ATRIUM The right atrial size is normal. ATRIAL SEPTUM Normal atrial septal thickness without atrial level shunting by limited color doppler interrogation. AORTA Mildly dilated proximal ascending aorta. Measured at 3.8 cm. MITRAL VALVE Structurally normal mitral valve. Mild mitral valve regurgitation. AORTIC VALVE Trileaflet aortic valve. No aortic valve stenosis or regurgitation. TRICUSPID VALVE Structurally normal tricuspid valve. There is trace tricuspid valve regurgitation. The estimated pulmonary arterial pressure is 30 mmHg. Normal estimated pulmonary pressures. PULMONARY VALVE The pulmonary valve is not well visualized. VESSELS The inferior vena cava is normal in size. PERICARDIUM No pericardial effusion. Jeyson Gonzalez MD, FACC (Electronically Signed) Final Date:01 September 2016 15:31
--- NOTE | 2016-09-01 16:50 | PD.CONS ---
HPI Service Nephrology Consult Requested By Dr. Sagastume Reason for Consult Acute renal insufficiency Primary Care Physician Joey Helm History of Present Illness Patient is a 56-year-old male with history of diabetes, hypertension, CVA 2 who presented the other days of feeling sick Getting Nausea , Occasional Vomiting and Diarrhea Patient Presented with a Creatinine 1.9, He States That He Has Diabetes for 20 Years and Suffered Strokes with Left hemiparesis he also said That His Left Arm Weak, He Can Walk with His Cane, He Has Good Urine Output He Denies Knowledge of Kidney Disease in the past or Use of Nonsteroidal Anti-Inflammatory Drugs. Review of Systems Constitutional: COMPLAINS OF: Fatigue Gastrointestinal: COMPLAINS OF: Diarrhea, Vomiting Past Family Social History Allergies: Coded Allergies: No Known Allergies (Unverified , 09/01/16) Past Medical History Diabetes Hypertension CVA 2 Left hemiparesis. Reported Medications Reported Meds & Active Scripts Active Reported Januvia (Sitagliptin Phosphate) 25 Mg Tab 25 Mg PO DAILY Carvedilol 6.25 Mg Tab 6.25 Mg PO BID Proair Hfa 8.5 GM Inh (Albuterol Sulfate) 90 Mcg/Act Aer 2 Puff INH Q6H PRN 108 mcg/actuation Loperamide (Loperamide HCl) 2 Mg Cap 2 Mg PO DIRECTED PRN One capsule after each loose stool. Not to exceed 8 capsules per day. Atorvastatin (Atorvastatin Calcium) 80 Mg Tab 80 Mg PO HS Gabapentin 300 Mg Cap 300 Mg PO BID Glimepiride 4 Mg Tab 4 Mg PO BIDAC Active Ordered Medications Current Medications Medications (Trade) Dose Ordered Sig/Mansi Route Start Time Stop Time Status Last Admin (NS 1000 ml Inj) 1,000 ml @ 100 mls/hr Q10H IV 09/01/16 06:31 09/01/16 16:31 (NS Flush) 2 ml UNSCH PRN IV FLUSH 09/01/16 06:45 09/01/16 09:50 (NS Flush) 2 ml BID IV FLUSH 09/01/16 09:00 09/01/16 08:13 (Tylenol) 650 mg Q4H PRN PO 09/01/16 06:45 (Zofran Inj) 4 mg Q6H PRN IVP 09/01/16 06:45 (Lovenox Inj) 40 mg Q24H SQ 09/01/16 08:00 09/01/16 08:17 (Afia-Colace) 1 tab BID PO 09/01/16 09:00 (Milk Of Magnesia Liq) 30 ml Q12H PRN PO 09/01/16 06:45 (Senokot) 17.2 mg Q12H PRN PO 09/01/16 06:45 (Dulcolax Supp) 10 mg DAILY PRN RECTAL 09/01/16 06:45 Lactulose 30 ml 30 ml DAILY PRN PO 09/01/16 06:45 (Zosyn 4.5 Gm Premix) 100 ml @ 200 mls/hr Q6H IV 09/01/16 13:00 09/01/16 13:54 (Coreg) 6.25 mg Q12HR PO 09/01/16 09:00 09/01/16 09:49 (Lipitor) 80 mg DAILY PO 09/01/16 09:00 09/01/16 09:49 (Glucagon Inj) 1 mg UNSCH PRN OTHER 09/01/16 08:45 (D50w (Vial) Inj) 50 ml UNSCH PRN IV 09/01/16 08:45 (Glucagon Inj) 1 mg STAT PRN IM 09/01/16 08:45 Family History Noncontributory Social History Denies smoking or alcohol use Physical Exam Vital Signs Vital Signs Date Time Temp Pulse Resp B/P Pulse Ox O2 Delivery O2 Flow Rate FiO2 09/01/16 16:34 98.5 78 18 119/69 98 09/01/16 15:22 78 09/01/16 12:09 98.7 81 18 125/72 96 09/01/16 09:30 98.3 93 18 152/84 98 09/01/16 09:30 93 09/01/16 07:08 99.3 95 18 159/84 95 Room Air 09/01/16 06:37 96 21 09/01/16 04:58 16 96 Room Air 09/01/16 04:58 96 Room Air 09/01/16 04:49 16 09/01/16 04:47 100.3 104 16 191/106 96 Physical Exam GENERAL: Well-nourished, well-developed patient. SKIN: Warm and dry. HEAD: Normocephalic. EYES: No scleral icterus. No injection or drainage. NECK: Supple, trachea midline. No JVD or lymphadenopathy. CARDIOVASCULAR: Regular rate and rhythm without murmurs, gallops, or rubs. RESPIRATORY: Breath sounds equal bilaterally. No accessory muscle use. GASTROINTESTINAL: Abdomen soft, non-tender, nondistended. EXTREMITIES: No cyanosis, or edema. NEUROLOGICAL: Awake, alert, and oriented x 3. Left arm weakness Laboratory Laboratory Tests Test 09/01/16 09/01/16 09/01/16 09/01/16 04:50 05:10 05:16 08:45 White Blood Count 6.1 Red Blood Count 4.14 Hemoglobin 12.0 Hematocrit 36.4 Mean Corpuscular Volume 88.0 Mean Corpuscular Hemoglobin 29.0 Mean Corpuscular Hemoglobin 33.0 Concent Red Cell Distribution Width 14.2 Platelet Count 191 Mean Platelet Volume 9.2 Neutrophils (%) (Auto) 82.7 Lymphocytes (%) (Auto) 11.1 Monocytes (%) (Auto) 4.8 Eosinophils (%) (Auto) 0.9 Basophils (%) (Auto) 0.5 Neutrophils # (Auto) 5.0 Lymphocytes # (Auto) 0.7 Monocytes # (Auto) 0.3 Eosinophils # (Auto) 0.1 Basophils # (Auto) 0.0 CBC Comment DIFF FINAL Differential Comment Prothrombin Time 11.0 Prothromb Time International 1.0 Ratio Activated Partial 18.3 Thromboplast Time Sodium Level 145 Potassium Level 4.4 Chloride Level 116 Carbon Dioxide Level 20.5 Anion Gap 9 Blood Urea Nitrogen 22 Creatinine 1.90 Estimat Glomerular Filtration 37 Rate Random Glucose 228 201 Lactic Acid Level 1.6 Calcium Level 8.5 Phosphorus Level 2.0 Magnesium Level 1.6 Total Bilirubin 0.6 Aspartate Amino Transf 23 (AST/SGOT) Alanine Aminotransferase 31 (ALT/SGPT) Alkaline Phosphatase 86 Total Creatine Kinase 157 Creatine Kinase MB 4.3 Troponin I 0.39 Total Protein 7.8 Albumin 3.4 Lipase 110 Urine Color YELLOW Urine Turbidity CLEAR Urine pH 5.5 Urine Specific [place] 1.018 Urine Protein 30 Urine Glucose (UA) 300 Urine Ketones NEG Urine Occult Blood SMALL Urine Nitrite NEG Urine Bilirubin NEG Urine Urobilinogen LESS THAN 2.0 Urine Leukocyte Esterase NEG Urine RBC 1 Urine WBC 1 Urine Squamous Epithelial 2 Cells Urine Bacteria RARE Urine Mucus FEW Microscopic Urinalysis Comment CATH-CULTURE IND Blood Gas Puncture Site LEFT HAND Blood Gas Patient Temperature 98.6 Venous Blood pH 7.33 Venous Blood Partial Pressure 35 CO2 Venous Blood Partial Pressure 48 O2 Venous Blood HCO3 18 Venous Blood Oxygen Saturation 79 Venous Blood Oxygen Content 12.7 Venous Blood Base Excess -6.9 Oxygen Delivery Device ROOM AIR Blood Gas Inspired Oxygen 21 Date/Time Procedure Status Source Growth 09/01/16 05:10 Urine Culture - Preliminary Resulted Urine Catheterized Urine NO GROWTH IN 24 HOURS. 09/01/16 04:50 Aerobic Blood Culture Received Blood Peripheral Pending 09/01/16 04:50 Anaerobic Blood Culture Received Blood Peripheral Pending Result Diagram: 09/01/16 0450 09/01/16 0845 Imaging Last Impressions Chest X-Ray 09/01/16452 Signed Impressions: Service Date/Time: Thursday, September 01, 2016 04:57 - CONCLUSION: Mild prominence of the interstitial markings. Ambrocio Brewster MD Abdomen/Pelvis CT 09/01/16452 Signed Impressions: Service Date/Time: Thursday, September 01, 2016 05:51 - CONCLUSION: Bibasilar air space process worse on the left suspicious for pneumonia. Ambrocio Brewster MD Assessment and Plan Problem List: (1) Acute renal failure Plan: Patient has initially presented with dehydration continue to monitor renal functions I will get a baseline kidney ultrasound avoid nephrotoxins avoid gadolinium or dye studies (2) Diabetes Plan: Continue to monitor Not well controlled blood sugars are above 200 (3) HTN (hypertension) Plan: Monitor blood pressure Parth Ruiz MD Sep 01, 2016 16:50
--- NOTE | 2016-09-01 19:13 | EKG ---
Date Performed: 09/01/2016 Time Performed: 18:18:25 PTAGE: 56 years EKG: Sinus rhythm POSSIBLE RIGHT VENTRICULAR CONDUCTION DELAY Nonspecific ST-T changes ABNORMAL ECG In comparison, rat e has slowed. PREVIOUS TRACING : 09/01/2016 06.06 DOCTOR: Lorne Moore Interpretating Date/Time 09/01/2016 19:11:49
--- NOTE | 2016-09-01 22:23 | RADRPT ---
EXAM DATE/TIME: 09/01/2016 21:01 [facility] COMPARISON: CT ABDOMEN & PELVIS W CONTRAST, September 01, 2016, 5:51. INDICATIONS : Increased BUN/Creatinine. MEDICAL HISTORY : Myocardial infarction. Hypertension. Cerebrovascular accident. Diabetes. Afib. SURGICAL HISTORY : Arm surgery. Throat surgery. ENCOUNTER: Initial ACUITY: 1 day PAIN SCORE: 2/10 LOCATION: Bilateral flank MEASUREMENTS: RIGHT KIDNEY: 10.7 x 6.0 x 5.7 cm LEFT KIDNEY: 11.6 x 6.2 x 7.5 cm FINDINGS: RIGHT KIDNEY: Renal cortex is normal in thickness and echotexture. No hydronephrosis or mass. 7 mm cortical calcif ication in the mid zone.. LEFT KIDNEY: Renal cortex is normal in thickness and echotexture. No hydronephrosis, stone, or mass. BLADDER: Within normal limits given the degree of distension. CONCLUSION: No obstructive uropathy or other acute abnormality demonstrated. Scot Sung MD on September 01, 2016 at 22:20 Board Certified Radiologist. This report was verified electronically.
[2016-09-01 22:53] LABS: C. DIFF EPI 027 PRESUMPTIVE NEGATIVE (NEGATIVE); C. DIFF TOXIN PCR NEGATIVE (NEGATIVE)
[2016-09-01 23:39] LABS: POTASSIUM 3.8 MEQ/L (3.5-5.1)
[2016-09-02] VITALS (9 sets, daily range): BP systolic 130–164; BP diastolic 64–92; PULSE 68–78; RESP 16–19; TEMP 98.3–98.8; O2SAT 96–98
[2016-09-02] MEDS: PIPERACIL-TAZO 4.5 GM PREMIX 100 ML IV SCH ×4 (03:04→18:30)
[2016-09-02] MEDS: SODIUM CHLOR 0.9% 1000 ML INJ 1,000 ML IV SCH ×2 (03:06→13:18)
[2016-09-02] MEDS: INSULIN NovoLIN REGULAR SUPPLEMENTAL SCALE SQ SCH ×4 (05:25→21:00)
[2016-09-02] MEDS ORDERED: VANCOMYCIN INJ 1,000 MG in SODIUM CHLOR 0.9% 250 ML INJ 250 ML IV SCH (06:00)
[2016-09-02 06:06] LABS: AUTOMATED NEUTROPHIL # 9.4 TH/MM3 (1.8-7.7); BASOPHIL % 0.2 % (0.0-2.0); EOSINOPHIL # 0.2 TH/MM3 (0-0.4); EOSINOPHIL % 1.3 % (0.0-4.0); HEMATOCRIT 31.5 % (39.0-51.0); HEMO FLAGS DIFF FINAL; LYMPH % 16.7 % (9.0-44.0); LYMPHOCYTE # 2.1 TH/MM3 (1.0-4.8); MEAN CELL VOLUME 88.4 FL (80.0-100.0); MEAN CORPUSCULAR HGB CONC 31.7 % (32.0-36.0); NEUT % 74.8 % (16.0-70.0); PLATELET COUNT 141 TH/MM3 (150-450); RED BLOOD COUNT 3.56 MIL/MM3 (4.50-5.90); RED CELL DISTRIBUTION WIDTH 14.2 % (11.6-17.2); WHITE BLOOD COUNT 12.5 TH/MM3 (4.0-11.0)
[2016-09-02 06:22] LABS: ALKALINE PHOSPHATASE 65 U/L (45-117); ALT (GPT) 22 U/L (12-78); ANION GAP 9 MEQ/L (5-15); AST (GOT) 18 U/L (15-37); BICARBONATE 21.7 MEQ/L (21.0-32.0); BLOOD UREA NITROGEN 20 MG/DL (7-18); CHLORIDE 112 MEQ/L (98-107); GLOMERULAR FILTRATION RATE 36 ML/MIN (>89); LDL CHOLESTEROL 18 MG/DL (0-99); POTASSIUM 3.7 MEQ/L (3.5-5.1); SODIUM (NA) 143 MEQ/L (136-145); TOTAL BILIRUBIN ADULT 1.4 MG/DL (0.2-1.0)
--- NOTE | 2016-09-02 07:45 | PD.CARD.PN ---
Subjective Subjective Remarks no cardiac events little bit of blood in his stool Objective Medications Active Medications Atorvastatin Calcium (Lipitor) 80 mg DAILY PO Last administered on 09/01/16 09: 49; Admin Dose 80 MG; Start 09/01/16 at 09:00 Carvedilol (Coreg) 6.25 mg Q12HR PO Last administered on 09/01/16 21:41; Admin Dose 6.25 MG; Start 09/01/16 at 09:00 Dextrose (D50w (Vial) Inj) 50 ml UNSCH PRN IV; Start 09/01/16 at 08:45; Stop at 08:55; Status DC Dextrose (D50w (Vial) Inj) 50 ml UNSCH PRN IV; Start 09/01/16 at 08:45 Enoxaparin Sodium (Lovenox Inj) 40 mg Q24H SQ Last administered on 09/01/16 08: 17; Admin Dose 40 MG; Start 09/01/16 at 08:00 Glucagon (Glucagon Inj) 1 mg UNSCH PRN OTHER; Start 09/01/16 at 08:45 Glucagon 1 mg 1 mg STAT PRN IM; Start 09/01/16 at 08:45 Piperacillin Sod/ Tazobactam Sod (Zosyn 4.5 Gm Premix) 100 ml @ 200 mls/hr Q6H IV Last administered on 09/02/16 05:25; Admin Dose 200 MLS/HR; Start 09/01/16 at 13:00 Senna/Docusate Sodium 1 tab 1 tab BID PO; Start 09/01/16 at 09:00 Sodium Chloride (NS Flush) 2 ml BID IV FLUSH Last administered on 09/01/16 21: 41; Admin Dose 2 ML; Start 09/01/16 at 09:00 Sodium Phosphate/ Sodium Chloride (Sodium Phosphate Inj/NS Inj) 155 ml @ 38.75 mls/ hr ONCE ONCE IV Last administered on 09/01/16 09:55; Admin Dose 38.75 MLS /HR; Start 09/01/16 at 10:00; Stop 09/01/16 at 13:59; Status DC Vancomycin HCl 1000 mg/Sodium Chloride 250 ml @ 250 mls/hr Q24H IV; Start 09/02 at 06:00; Status Cancel Vital Signs / I&O Vital Signs Date Time Temp Pulse Resp B/P Pulse Ox O2 Delivery O2 Flow Rate FiO2 09/02/16 04:45 98.5 76 16 130/64 96 09/01/16 23:08 97.6 79 16 143/81 95 09/01/16 21:52 97 09/01/16 20:30 98.5 81 16 155/90 93 09/01/16 20:00 82 09/01/16 16:34 98.5 78 18 119/69 98 09/01/16 15:22 78 09/01/16 12:09 98.7 81 18 125/72 96 09/01/16 09:30 98.3 93 18 152/84 98 09/01/16 09:30 93 I/O 09/01/16 09/01/16 09/01/16 09/02/16 09/02/16 09/02/16 07:00 15:00 23:00 07:00 15:00 23:00 Intake Total 1000 ml 1136 ml Output Total 250 ml Balance 750 ml 1136 ml Intake Oral 1000 ml 240 ml IV Total 896 ml Output Urine Total 250 ml # Voids 2 2 # Bowel Movements 2 1 Physical Exam GENERAL: SKIN: Warm and dry. HEAD: Normocephalic. EYES: No scleral icterus. No injection or drainage. NECK: Supple, trachea midline. No JVD or lymphadenopathy. CARDIOVASCULAR: Regular rate and rhythm without murmurs, gallops, or rubs. RESPIRATORY: Breath sounds equal bilaterally. No accessory muscle use. GASTROINTESTINAL: Abdomen soft, non-tender, nondistended. MUSCULOSKELETAL: No cyanosis, or edema. BACK: Nontender without obvious deformity. No CVA tenderness. Laboratory Laboratory Tests Test 09/01/16 09/01/16 09/01/16 09/01/16 08:45 16:29 20:00 23:00 Random Glucose 201 MG/DL 137 MG/DL Total Creatine Kinase 191 U/L 145 U/L Troponin I 0.29 NG/ML 0.39 NG/ML Stool C. difficile Toxin (PCR) NEGATIVE Stl C. difficile Toxin PRESUMPTIVE Epiderm 027 NEGATIVE Sodium Level 141 MEQ/L Potassium Level 3.8 MEQ/L Chloride Level 110 MEQ/L Carbon Dioxide Level 21.0 MEQ/L Anion Gap 10 MEQ/L Blood Urea Nitrogen 22 MG/DL Creatinine 1.89 MG/DL Estimat Glomerular Filtration 37 ML/MIN Rate Calcium Level 8.4 MG/DL Test 09/02/16 05:19 White Blood Count 12.5 TH/MM3 Red Blood Count 3.56 MIL/MM3 Hemoglobin 10.0 GM/DL Hematocrit 31.5 % Mean Corpuscular Volume 88.4 FL Mean Corpuscular Hemoglobin 28.0 PG Mean Corpuscular Hemoglobin 31.7 % Concent Red Cell Distribution Width 14.2 % Platelet Count 141 TH/MM3 Mean Platelet Volume 8.9 FL Neutrophils (%) (Auto) 74.8 % Lymphocytes (%) (Auto) 16.7 % Monocytes (%) (Auto) 7.0 % Eosinophils (%) (Auto) 1.3 % Basophils (%) (Auto) 0.2 % Neutrophils # (Auto) 9.4 TH/MM3 Lymphocytes # (Auto) 2.1 TH/MM3 Monocytes # (Auto) 0.9 TH/MM3 Eosinophils # (Auto) 0.2 TH/MM3 Basophils # (Auto) 0.0 TH/MM3 CBC Comment DIFF FINAL Differential Comment Sodium Level 143 MEQ/L Potassium Level 3.7 MEQ/L Chloride Level 112 MEQ/L Carbon Dioxide Level 21.7 MEQ/L Anion Gap 9 MEQ/L Blood Urea Nitrogen 20 MG/DL Creatinine 1.93 MG/DL Estimat Glomerular Filtration 36 ML/MIN Rate Random Glucose 136 MG/DL Calcium Level 8.4 MG/DL Total Bilirubin 1.4 MG/DL Aspartate Amino Transf 18 U/L (AST/SGOT) Alanine Aminotransferase 22 U/L (ALT/SGPT) Alkaline Phosphatase 65 U/L Total Protein 6.7 GM/DL Albumin 2.8 GM/DL Triglycerides Level 50 MG/DL Cholesterol Level 85 MG/DL LDL Cholesterol 18 MG/DL HDL Cholesterol 57.0 MG/DL Cholesterol/HDL Ratio 1.49 RATIO Imaging Last Impressions Chest X-Ray 09/01/16452 Signed Impressions: Service Date/Time: Thursday, September 01, 2016 04:57 - CONCLUSION: Mild prominence of the interstitial markings. Ambrocio Brewster MD Abdomen/Pelvis CT 09/01/163 Signed Impressions: Service Date/Time: Thursday, September 01, 2016 05:51 - CONCLUSION: Bibasilar air space process worse on the left suspicious for pneumonia. Ambrocio Brewster MD Renal Ultrasound 09/01/16 0000 Signed Impressions: Service Date/Time: Thursday, September 01, 2016 21:01 - CONCLUSION: No obstructive uropathy or other acute abnormality demonstrated. Scot Sung MD Assessment and Plan Problem List: (1) HTN (hypertension) (2) Abnormal ECG (3) Elevated troponin Assessment and Plan NSTEMI - likely demand mediated. abnormal EKG. no CP. lexiscan today. Cr elevated. High threshold for C EF normal on echo SOB - PNA Jeyson Gonzalez MD Sep 02, 2016 07:45
[2016-09-02] MEDS: ENOXAPARIN SODIUM 40 MG/0.4 ML SYRINGE SQ SCH (08:00)
[2016-09-02] MEDS: CARVEDILOL 6.25 MG TAB PO SCH ×2 (08:12→21:08)
[2016-09-02] MEDS: ATORVASTATIN 80 MG TAB PO SCH (08:12)
[2016-09-02] MEDS: SODIUM CHLORIDE 0.9% FLUSH 10 ML FLUSH IV FLUSH SCH ×2 (08:13→21:07)
[2016-09-02] MEDS: DOCUSATE SODIUM 50 MG/SENNA 8.6 MG TAB PO SCH ×2 (08:13→21:00)
[2016-09-02 10:50] LABS: HEMOGLOBIN A1a 1.1 %; HEMOGLOBIN A1b 2.2 %; HEMOGLOBIN Ao 80.1 %; HEMOGLOBIN LA1C 2.1 %; HEMOGLOBIN P3 4.1 %
[2016-09-02] MEDS ORDERED: REGADENOSON INJ 0.4 MG/5 ML SYR ONE (12:09)
--- NOTE | 2016-09-02 12:47 | HHI.PR ---
Subjective Remarks reported blood in the stools Objective Vitals Vital Signs Date Time Temp Pulse Resp B/P Pulse Ox O2 Delivery O2 Flow Rate FiO2 09/02/16 08:44 97 21 09/02/16 08:01 98.8 78 19 133/69 96 09/02/16 04:45 98.5 76 16 130/64 96 09/01/16 23:08 97.6 79 16 143/81 95 09/01/16 21:52 97 09/01/16 20:30 98.5 81 16 155/90 93 09/01/16 20:00 82 09/01/16 16:34 98.5 78 18 119/69 98 09/01/16 15:22 78 I/O 09/01/16 09/01/16 09/01/16 09/02/16 09/02/16 09/02/16 07:00 15:00 23:00 07:00 15:00 23:00 Intake Total 1000 ml 1136 ml Output Total 250 ml Balance 750 ml 1136 ml Intake Oral 1000 ml 240 ml IV Total 896 ml Output Urine Total 250 ml # Voids 2 2 # Bowel Movements 2 1 Result Diagram: 09/02/16 0519 09/02/16 0519 Imaging Last Impressions Chest X-Ray 09/01/16452 Signed Impressions: Service Date/Time: Thursday, September 01, 2016 04:57 - CONCLUSION: Mild prominence of the interstitial markings. Ambrocio Brewster MD Abdomen/Pelvis CT 09/01/16 0453 Signed Impressions: Service Date/Time: Thursday, September 01, 2016 05:51 - CONCLUSION: Bibasilar air space process worse on the left suspicious for pneumonia. Ambrocio Brewster MD Renal Ultrasound 09/01/16 0000 Signed Impressions: Service Date/Time: Thursday, September 01, 2016 21:01 - CONCLUSION: No obstructive uropathy or other acute abnormality demonstrated. Scot Sung MD A/P Assessment and Plan 56-year-old male with history of CVA with dysarthria and left sided hemiparesispresenting with fever chills nausea vomiting on and off diarrhea Sepsis likely secondary to pneumonia Possible aspiration -Patient started on Zosyn. - Will get a swallowing evaluation weak gag reflex. With history of CVA/ dysarthria. 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 -give x 1 IV Phosphorous Chronic Diarrhea- with LGIB- Bright red blood in stools - abdominal exam- benign -Get stool studies, C diff -GI consult -Monitor stool/bowel movement - Zofran IV prn for nausea/vomiting Hypertension History of CAD abnormal EKG with deep T-wave inversion no be no old EKG for comparison with history of CAD. Indeterminate troponin History of atrial fibrillation currently in sinus rhythm -Check an echo- pending . Cardiology ff- ordered for Lexiscan -Continue on Coreg History of diabetes type 2 on oral hypoglycemics. hemoglobin A1c - 10 check fingersticks 3 times a day at bedtime with sliding scale for now -Hold oral hypoglycemics. History of CVA with left-sided hemiparalysis with dysarthric -PT consult - Get speech to do a swallowing evaluation Lovenox subcutaneous for DVT prophylaxis PPI for GI prophylaxis Zofran IV prn Fly Medina MD Sep 02, 2016 12:47 Fly Medina MD Sep 02, 2016 12:47
--- NOTE | 2016-09-02 12:47 | HHI.NPPN ---
Subjective History of Present Illness 56 year old male with CKD, DM HTN, CVA Objective Data Data 09/01/16 09/02/16 19:00 07:00 Intake Total 640 ml 1496 ml Output Total 250 ml Balance 390 ml 1496 ml Intake Oral 640 ml 600 ml IV Total 896 ml Output Urine Total 250 ml # Voids 1 3 # Bowel Movements 1 2 Vital Signs Date Time Temp Pulse Resp B/P Pulse Ox O2 Delivery O2 Flow Rate FiO2 09/02/16 08:44 97 21 09/02/16 08:01 98.8 78 19 133/69 96 09/02/16 04:45 98.5 76 16 130/64 96 09/01/16 23:08 97.6 79 16 143/81 95 09/01/16 21:52 97 09/01/16 20:30 98.5 81 16 155/90 93 09/01/16 20:00 82 09/01/16 16:34 98.5 78 18 119/69 98 09/01/16 15:22 78 -: 09/02/16 0519 09/02/16 0519 Microbiology 09/01/16 Cryptosporidium Exam - Final, Complete NEGATIVE - NO CRYPTOSPORIDIUM ANTIGEN... 09/01/16 Giardia Antigen ([facility]) - Final, Complete NEGATIVE - NO GIARDIA ANTIGEN DETECTE... Physical Exam General Appearance: Well Developed Neck Neck Exam: Neck Supple Pulmonary Resp Exam: Clear Bilaterally, Breath Sounds Equal Cardiology CV Exam: Regular, Normal Sinus Rhythm Gastrointestinal/Abdomen GI Exam: Soft, Non-Tender, Bowel Sounds Present Extremeties Extremities Exam: No Edema Assessment/Plan Problem List: (1) Acute renal failure Plan: no significant improvement in renal function renal US no [place] normal cortex his baseline Cr 1.6 likely CKD due to Htn/DM Check DAVID, UPEP, Protein follow up as out pt on discharge (2) Diabetes Plan: Continue to monitor Not well controlled blood sugars are above 200 (3) HTN (hypertension) Plan: Monitor blood pressure Parth Ruiz MD Sep 02, 2016 12:47
[2016-09-02] MEDS ORDERED: traMADol/ACETAMINOPHEN 37.5/325 1 TAB PO PRN (13:45)
--- NOTE | 2016-09-02 14:47 | PD.CONS ---
HPI History of Present Illness This is a 56 year old [gentleman] with hx CVA 2y ago, DM, who had onsetn n/v, diarrhea 2 days ago. No hematemesis. His nausea and vomiting has improved but he still has diarrhea and there was report of blood in diarrhea. Pt is unaware of any blood in stool and denies black stools, abd pain. Pt reports weight loss 20lbs in the last few months and hx bleeding ulcers. He says whenever he is given blood thinners he has hematemesis. he last had EGD that was normal as he recalls, "awhile back and the didn't find nothin." had colonoscopy as well but remembers no details. (Domi Gilliam) PFSH Past Medical History Hypertension, history of diabetes type 2 History of atrial fibrillation History of CVA 2 with residual left-sided weakness History of CAD "silent [place] Past Surgical History Some form of throat surgery in 2016 at [facility] status post fall (Domi Gilliam) Coded Allergies: No Known Allergies (Unverified , 09/01/16) Family History Noncontributory Social History Quit smoking 2 years ago History of drinking quite of beer a day none for the past 5 years Used to smoke marijuana crit for the past 5 years (Domi Gilliam) Review of Systems Constitutional: DENIES: Fever Ears, nose, mouth, throat: DENIES: Hearing loss Respiratory: DENIES: Cough Cardiovascular: DENIES: Chest pain Gastrointestinal: COMPLAINS OF: Diarrhea, Nausea, Vomiting, DENIES: Abdominal pain, Black stools, Bloody stools, Hematemesis Genitourinary: DENIES: Hematuria Musculoskeletal: DENIES: Muscle aches Neurologic: DENIES: Headache Psychiatric: DENIES: Confusion (Domi Gilliam) GI Exam Vitals I&O Vital Signs Date Time Temp Pulse Resp B/P Pulse Ox O2 Delivery O2 Flow Rate FiO2 09/02/16 08:44 97 21 09/02/16 08:01 98.8 78 19 133/69 96 09/02/16 08:00 77 09/02/16 04:45 98.5 76 16 130/64 96 09/01/16 23:08 97.6 79 16 143/81 95 09/01/16 21:52 97 09/01/16 20:30 98.5 81 16 155/90 93 09/01/16 20:00 82 09/01/16 16:34 98.5 78 18 119/69 98 09/01/16 15:22 78 I/O 09/01/16 09/01/16 09/01/16 09/02/16 09/02/16 09/02/16 07:00 15:00 23:00 07:00 15:00 23:00 Intake Total 1000 ml 1136 ml Output Total 250 ml Balance 750 ml 1136 ml Intake Oral 1000 ml 240 ml IV Total 896 ml Output Urine Total 250 ml # Voids 2 2 # Bowel Movements 2 1 Imaging Last Impressions Chest X-Ray 09/01/16452 Signed Impressions: Service Date/Time: Thursday, September 01, 2016 04:57 - CONCLUSION: Mild prominence of the interstitial markings. Ambrocio Brewster MD Abdomen/Pelvis CT 09/01/16452 Signed Impressions: Service Date/Time: Thursday, September 01, 2016 05:51 - CONCLUSION: Bibasilar air space process worse on the left suspicious for pneumonia. Ambrocio Brewster MD Renal Ultrasound 09/01/16 0000 Signed Impressions: Service Date/Time: Thursday, September 01, 2016 21:01 - CONCLUSION: No obstructive uropathy or other acute abnormality demonstrated. Scot Sung MD Laboratory Test 09/01/16 09/01/16 09/01/16 09/02/16 16:29 20:00 23:00 05:19 Total Creatine Kinase 191 U/L 145 U/L Troponin I 0.29 NG/ML 0.39 NG/ML Stool C. difficile Toxin (PCR) NEGATIVE Stl C. difficile Toxin PRESUMPTIVE Epiderm 027 NEGATIVE Sodium Level 141 MEQ/L 143 MEQ/L Potassium Level 3.8 MEQ/L 3.7 MEQ/L Chloride Level 110 MEQ/L 112 MEQ/L Carbon Dioxide Level 21.0 MEQ/L 21.7 MEQ/L Anion Gap 10 MEQ/L 9 MEQ/L Blood Urea Nitrogen 22 MG/DL 20 MG/DL Creatinine 1.89 MG/DL 1.93 MG/DL Estimat Glomerular Filtration 37 ML/MIN 36 ML/MIN Rate Random Glucose 137 MG/DL 136 MG/DL Calcium Level 8.4 MG/DL 8.4 MG/DL White Blood Count 12.5 TH/MM3 Red Blood Count 3.56 MIL/MM3 Hemoglobin 10.0 GM/DL Hematocrit 31.5 % Mean Corpuscular Volume 88.4 FL Mean Corpuscular Hemoglobin 28.0 PG Mean Corpuscular Hemoglobin 31.7 % Concent Red Cell Distribution Width 14.2 % Platelet Count 141 TH/MM3 Mean Platelet Volume 8.9 FL Neutrophils (%) (Auto) 74.8 % Lymphocytes (%) (Auto) 16.7 % Monocytes (%) (Auto) 7.0 % Eosinophils (%) (Auto) 1.3 % Basophils (%) (Auto) 0.2 % Neutrophils # (Auto) 9.4 TH/MM3 Lymphocytes # (Auto) 2.1 TH/MM3 Monocytes # (Auto) 0.9 TH/MM3 Eosinophils # (Auto) 0.2 TH/MM3 Basophils # (Auto) 0.0 TH/MM3 CBC Comment DIFF FINAL Differential Comment Hemoglobin A1c 10.0 % Total Bilirubin 1.4 MG/DL Aspartate Amino Transf 18 U/L (AST/SGOT) Alanine Aminotransferase 22 U/L (ALT/SGPT) Alkaline Phosphatase 65 U/L Total Protein 6.7 GM/DL Albumin 2.8 GM/DL Triglycerides Level 50 MG/DL Cholesterol Level 85 MG/DL LDL Cholesterol 18 MG/DL HDL Cholesterol 57.0 MG/DL Cholesterol/HDL Ratio 1.49 RATIO Date/Time Procedure Status Source Growth 09/01/16 20:00 Cryptosporidium Exam - Final Complete Stool Stool NEGATIVE - NO CRYPTOSPORIDIUM ANTIGEN... 09/01/16 20:00 Giardia Antigen (FOSTER) - Final Complete Stool Stool NEGATIVE - NO GIARDIA ANTIGEN DETECTE... 09/01/16 05:10 Urine Culture - Final Complete Urine Catheterized Urine 50-100,000 CFU/ML MIXED GRAM POSITIVE... 09/01/16 04:50 Aerobic Blood Culture - Preliminary Resulted Blood Peripheral NO GROWTH IN 1 DAY 09/01/16 04:50 Anaerobic Blood Culture - Preliminary Resulted Blood Peripheral NO GROWTH IN 1 DAY Physical Examination HEENT: EOMI; normocephalic; atraumatic; no jaundice. CHEST: CTA CARDIAC: RRR ABDOMEN: Soft, nondistended, nontender; no hepatosplenomegaly; bowel sounds are present in all four quadrants. EXTREMITIES: No clubbing, cyanosis, or edema. SKIN: Normal; no rash; no jaundice. STEM TEACHER: No focal deficits; alert and oriented times three. (Domi Gilliam) Assessment and Plan Plan ASSESSMENT - diarrhea, blood in stool - unclear etiology. report of 1 x episode blood in stool yesterday. heme occult pending. - nausea, vomiting- improved. onset 2 d ago - anemia - hgb 10 down 2 points since yesterday. ?2/2 above? pt w/ hx bleeding ulcers, reports hematemesis if given blood thinners. he has hx CVA 2 y ago, cardiology following and echo, lexiscan pending. PLAN - EGD/colonoscopy when cleared by cardiology - await heme occult - monitor hh - supportive care This pt seen by myself and Dr Bañuelos and this note is written on his behalf ( Domi Gilliam) Physician Comments Seen and examined with CORRECTIONAL COOK, no active bleeding. Needs egd/colonoscopy once cleared by cardiology. Will follow, thank you (Sulaiman Bañuelos MD) Domi Gilliam Sep 02, 2016 14:47 Sulaiman Bañuelos MD Sep 02, 2016 15:40
--- NOTE | 2016-09-02 15:17 | HHI.FF ---
Face to Face Verification Diagnosis: (1) Abnormal ECG (2) Acute renal failure (3) Diabetes Physical Therapy Order: Evaluate and Treat, Improve ambulation Occupational Therapy Order: Gross motor coordination Speech Therapy Order: To Improve: Speech and communication skills, Cognitive skills Home Health Nursing Order: Medical education Signs/symptoms of disease process Diabetic education Medication education-adverse effect Nursing assessment with vital signs I have seen patient Sai Andrews on 09/02/16. My clinical findings support the need for the requested home health care services because: Ltd mobility - disease progression Deconditioned w/ increased weakness Need for psychosocial assistance I certify that my clinical findings support that this patient is homebound because: Unsteady gait/balance Need for psychosocial assistance Fly Medina MD Sep 02, 2016 15:17
--- NOTE | 2016-09-02 16:49 | RADRPT ---
EXAM DATE/TIME: 09/02/2016 11:17 [place] COMPARISON: No previous studies available for comparison. INDICATIONS : Elevated troponin and dyspnea. Abnormal EKG. Myocardial infarction. DOSE: 31.2 mCi Tc99m Myoview at stress. 10 mCi Tc99m Myoview at rest. 0.4 mg Lexiscan STRESS SYMPTOMS: None noted. EJECTION FRACTION: 46% MEDICAL HISTORY : Hypertension. Myocardial infarction. Stroke. SURGICAL HISTORY : Throat surgery. ENCOUNTER: Initial ACUITY: 1 day PAIN SCALE: 0/10 LOCATION: Substernal chest TECHNIQUE: The patient underwent pharmacologic stress with infusion of prescribed dose. Continuous ECG tracing was monitored during stress. Gated SPECT imaging was performed after stress and conventional SPECT i maging was performed at rest. The examination was performed on a SPECT/CT scanner, both attenuation and non-corrected datasets were reviewed. FINDINGS: DISTRIBUTION: The maximum perfused segment at stress is in the anterolateral wall. PERFUSION STUDY: The pattern of perfusion at stress is within normal limits. GATED STUDY: There is intact wall motion and thickening without hypokinetic or dyskinetic segments. CONCLUSION: 1. No reversible perfusion defect to suggest stress-induced myocardial ischemia. RISK CATEGORY: Low (<1% Annual Mortality Rate) Nitin Vail MD on September 02, 2016 at 16:46 Board Certified Radiologist. This report was verified electronically.
[2016-09-03] VITALS (9 sets, daily range): BP systolic 149–180; BP diastolic 79–103; PULSE 59–70; RESP 16–19; TEMP 98.2–98.8; O2SAT 93–100
[2016-09-03] MEDS: SODIUM CHLOR 0.9% 1000 ML INJ 1,000 ML IV SCH ×3 (00:01→19:47)
[2016-09-03] MEDS: PIPERACIL-TAZO 4.5 GM PREMIX 100 ML IV SCH ×4 (01:45→21:40)
[2016-09-03] MEDS: INSULIN NovoLIN REGULAR SUPPLEMENTAL SCALE SQ SCH ×4 (06:38→21:00)
--- NOTE | 2016-09-03 07:38 | PD.CARD.PN ---
Subjective Subjective Remarks denies chest pain (Sai Duran) Objective Vital Signs / I&O Vital Signs Date Time Temp Pulse Resp B/P Pulse Ox O2 Delivery O2 Flow Rate FiO2 09/03/16 04:32 98.7 64 18 168/89 94 09/03/16 00:15 98.7 70 18 149/79 93 09/02/16 22:00 150/80 09/02/16 20:57 98.3 74 18 162/92 96 09/02/16 20:00 68 09/02/16 17:51 97 21 09/02/16 16:01 98.4 74 19 164/88 98 09/02/16 08:44 97 21 09/02/16 08:01 98.8 78 19 133/69 96 09/02/16 08:00 77 I/O 09/02/16 09/02/16 09/02/16 09/03/16 09/03/16 09/03/16 07:00 15:00 23:00 07:00 15:00 23:00 Intake Total 1136 ml 956 ml 749 ml 769 ml Output Total 700 ml Balance 1136 ml 256 ml 749 ml 769 ml Intake Oral 240 ml 360 ml 0 ml IV Total 896 ml 596 ml 749 ml 769 ml Output Urine Total 700 ml # Voids 2 3 # Bowel Movements 1 2 2 Physical Exam GENERAL: Well-nourished, well-developed patient in no apparent distress. NECK: No JVD. No carotid bruit. CARDIOVASCULAR: Regular rate and rhythm. S1/S2 no murmur, rub, or gallop. RESPIRATORY: No accessory muscle use. Clear to auscultation. Breath sounds equal bilaterally. GASTROINTESTINAL: Abdomen soft, non-tender, nondistended. MUSCULOSKELETAL: Extremities without clubbing, cyanosis, or edema. (Sai Duran) Assessment and Plan Problem List: (1) HTN (hypertension) (2) Abnormal ECG (3) Elevated troponin Assessment and Plan Lexiscan SPECT shows no evidence for ischemia. He can be discharged home from a CV standpoint. sign off (Sai Duran) Assessment and Plan -- agree with above (Jeyson Gonzalez MD) Sai Duran Sep 03, 2016 07:37 Jeyson Gonzalez MD Sep 03, 2016 07:49
[2016-09-03] MEDS: DOCUSATE SODIUM 50 MG/SENNA 8.6 MG TAB PO SCH ×2 (09:00→21:00)
[2016-09-03] MEDS: CARVEDILOL 6.25 MG TAB PO SCH (09:56)
[2016-09-03] MEDS: ATORVASTATIN 80 MG TAB PO SCH (09:57)
[2016-09-03] MEDS: SODIUM CHLORIDE 0.9% FLUSH 10 ML FLUSH IV FLUSH SCH ×2 (09:57→21:00)
[2016-09-03] MEDS: ENOXAPARIN SODIUM 40 MG/0.4 ML SYRINGE SQ SCH (09:57)
[2016-09-03 10:14] LABS: POTASSIUM 3.9 MEQ/L (3.5-5.1)
--- NOTE | 2016-09-03 15:07 | HHI.PR ---
Subjective Remarks denies any chest pains or shortness of breath per patient history of bleeding ulcers in the past- was scope 2 years ago in [facility] no abdominal pain, loose stools- but no blood willing to stay for scope Objective Vitals Vital Signs Date Time Temp Pulse Resp B/P Pulse Ox O2 Delivery O2 Flow Rate FiO2 09/03/16 12:00 98.8 69 18 165/95 96 09/03/16 08:02 98.4 70 18 168/86 95 09/03/16 04:32 98.7 64 18 168/89 94 09/03/16 00:15 98.7 70 18 149/79 93 09/02/16 22:00 150/80 09/02/16 20:57 98.3 74 18 162/92 96 09/02/16 20:00 68 09/02/16 17:51 97 21 09/02/16 16:01 98.4 74 19 164/88 98 I/O 09/02/16 09/02/16 09/02/16 09/03/16 09/03/16 09/03/16 07:00 15:00 23:00 07:00 15:00 23:00 Intake Total 1136 ml 956 ml 749 ml 769 ml Output Total 700 ml Balance 1136 ml 256 ml 749 ml 769 ml Intake Oral 240 ml 360 ml 0 ml IV Total 896 ml 596 ml 749 ml 769 ml Output Urine Total 700 ml # Voids 2 3 # Bowel Movements 1 2 2 Result Diagram: 09/02/16 0519 09/03/16 0801 Imaging Last Impressions Myocardial Perfusion Scan Nuc Med 09/02/16 0000 Signed Impressions: Service Date/Time: Friday, September 02, 2016 11:17 - CONCLUSION: 1. No reversible perfusion defect to suggest stress-induced myocardial ischemia. RISK CATEGORY : Low (<1%% Annual Mortality Rate) Nitin Vail MD Chest X-Ray 09/01/163 Signed Impressions: Service Date/Time: Thursday, September 01, 2016 04:57 - CONCLUSION: Mild prominence of the interstitial markings. Ambrocio Brewster MD Abdomen/Pelvis CT 09/01/163 Signed Impressions: Service Date/Time: Thursday, September 01, 2016 05:51 - CONCLUSION: Bibasilar air space process worse on the left suspicious for pneumonia. Ambrocio Brewster MD Renal Ultrasound 09/01/16 0000 Signed Impressions: Service Date/Time: Thursday, September 01, 2016 21:01 - CONCLUSION: No obstructive uropathy or other acute abnormality demonstrated. Scot Sung MD Objective Remarks awake and alert, NAD anicteric lungs clear regular rhythm abdomen soft, nontender extremities no edema neuro exam- stable- dyarthria with left sided weakness A/P Assessment and Plan 56-year-old male with history of CVA with dysarthria and left sided hemiparesispresenting with fever chills nausea vomiting on and off diarrhea Sepsis likely secondary to pneumonia Possible aspiration -Patient started on Zosyn. 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 -give x 1 IV Phosphorous Chronic Diarrhea-Bright - no active bleeding - abdominal exam- benign -GI- seen by Dr. Bañuelos- patient agreeable for scope -Monitor stool/bowel movement Hypertension History of CAD abnormal EKG with deep T-wave inversion no be no old EKG for comparison with history of CAD. Indeterminate troponin History of atrial fibrillation currently in sinus rhythm Lexiscan negative -Continue on Coreg- increase dose History of diabetes type 2 on oral hypoglycemics. hemoglobin A1c - 10 check fingersticks 3 times a day at bedtime with sliding scale for now- readings reviewed -Hold oral hypoglycemics.- for scope tomorrow - Sliding scale for now needs closer ff up with PCP for control diabetes reinforcement education History of CVA with left-sided hemiparesis with dysarthric -PT consult ff neuro stable Lovenox subcutaneous for DVT prophylaxis PPI for GI prophylaxis Zofran IV prn CM - patient lives in a [facility]- so Fly Medina MD Sep 03, 2016 15:07
[2016-09-03] MEDS ORDERED: PEG (High)/E-LYTE SOLN 4000 ML BTL PO ONE (16:30)
[2016-09-03 16:31] LABS: MEAN CELL VOLUME 87.7 FL (80.0-100.0); MEAN CORPUSCULAR HEMOGLOBIN 27.6 PG (27.0-34.0); MEAN CORPUSCULAR HGB CONC 31.5 % (32.0-36.0); PLATELET COUNT 163 TH/MM3 (150-450); RED BLOOD COUNT 3.99 MIL/MM3 (4.50-5.90); RED CELL DISTRIBUTION WIDTH 14.2 % (11.6-17.2); REVIEW FLAG FINAL; WHITE BLOOD COUNT 8.4 TH/MM3 (4.0-11.0)
--- NOTE | 2016-09-03 16:38 | HHI.GIFU ---
Subjective Remarks Resting in bed. No n/v, abdominal pain, diarrhea, or bleeding today. Had Lexiscan and has been cleared for endoscopic evaluation by cardiology. Will schedule for tomorrow, d/w patient and he is agreeable. Objective Vitals I&O Vital Signs Date Time Temp Pulse Resp B/P Pulse Ox O2 Delivery O2 Flow Rate FiO2 09/03/16 16:07 98.2 59 19 157/101 96 09/03/16 12:00 98.8 69 18 165/95 96 09/03/16 09:36 96 09/03/16 08:02 98.4 70 18 168/86 95 09/03/16 04:32 98.7 64 18 168/89 94 09/03/16 00:15 98.7 70 18 149/79 93 09/02/16 22:00 150/80 09/02/16 20:57 98.3 74 18 162/92 96 09/02/16 20:00 68 09/02/16 17:51 97 21 I/O 09/02/16 09/02/16 09/02/16 09/03/16 09/03/16 09/03/16 07:00 15:00 23:00 07:00 15:00 23:00 Intake Total 1136 ml 956 ml 749 ml 769 ml 600 ml Output Total 700 ml 800 ml Balance 1136 ml 256 ml 749 ml 769 ml -200 ml Intake Oral 240 ml 360 ml 0 ml 600 ml IV Total 896 ml 596 ml 749 ml 769 ml Output Urine Total 700 ml 800 ml # Voids 2 3 # Bowel Movements 1 2 2 0 Laboratory Laboratory Tests Test 09/03/16 08:01 Sodium Level 139 Potassium Level 3.9 Chloride Level 109 Carbon Dioxide Level 17.0 Anion Gap 13 Blood Urea Nitrogen 12 Creatinine 1.67 Estimat Glomerular Filtration 52 Rate Random Glucose 100 Calcium Level 8.7 Date/Time Procedure Status Source Growth 09/02/16 16:00 Cryptosporidium Exam Received Stool Stool Pending 09/02/16 16:00 Giardia Antigen (FOSTER) Received Stool Stool Pending 09/01/16 20:00 Cryptosporidium Exam - Final Complete Stool Stool NEGATIVE - NO CRYPTOSPORIDIUM ANTIGEN... 09/01/16 20:00 Giardia Antigen (FOSTER) - Final Complete Stool Stool NEGATIVE - NO GIARDIA ANTIGEN DETECTE... 09/01/16 05:10 Urine Culture - Final Complete Urine Catheterized Urine 50-100,000 CFU/ML MIXED GRAM POSITIVE... 09/01/16 04:50 Aerobic Blood Culture - Preliminary Resulted Blood Peripheral NO GROWTH IN 2 DAYS 09/01/16 04:50 Anaerobic Blood Culture - Preliminary Resulted Blood Peripheral NO GROWTH IN 2 DAYS Imaging Last Impressions Myocardial Perfusion Scan Nuc Med 09/02/16 0000 Signed Impressions: Service Date/Time: Friday, September 02, 2016 11:17 - CONCLUSION: 1. No reversible perfusion defect to suggest stress-induced myocardial ischemia. RISK CATEGORY : Low (<1%% Annual Mortality Rate) Nitin Vail MD Chest X-Ray 09/01/16452 Signed Impressions: Service Date/Time: Thursday, September 01, 2016 04:57 - CONCLUSION: Mild prominence of the interstitial markings. Ambrocio Brewster MD Abdomen/Pelvis CT 09/01/16452 Signed Impressions: Service Date/Time: Thursday, September 01, 2016 05:51 - CONCLUSION: Bibasilar air space process worse on the left suspicious for pneumonia. Ambrocio Brewster MD Renal Ultrasound 09/01/16 0000 Signed Impressions: Service Date/Time: Thursday, September 01, 2016 21:01 - CONCLUSION: No obstructive uropathy or other acute abnormality demonstrated. Scot Sung MD Physical Exam HEENT: Normocephalic; atraumatic; no jaundice. CHEST: CTA CARDIAC: RRR. ABDOMEN: Soft, nondistended, nontender; no hepatosplenomegaly; bowel sounds are present in all four quadrants. EXTREMITIES: No clubbing, cyanosis, or edema. SKIN: Normal; no rash; no jaundice. HEAD LOADER: Alert and oriented times three, left sided weakness Assessment and Plan Plan ASSESSMENT - Rectal bleeding. Pt has not had any episodes today. States that he does have a hx of bleeding ulcers and last had EGD/Colonoscopy about 3 [address] [place]. Abdomen/Pelvis CT (09/01/16)----> Bibasilar air space process worse on the left suspicious for pneumonia. He does report that he was recently started on a blood thinner, although this is not in his home med list and he cannot recall what this was. HH was 10.0/31.5 yesterday. Today's CBC is pending. Pt has been cleared by cardiology for EGD/Colonoscopy and we will proceed with this tomorrow. - Anemia secondary to acute blood loss. 10.0/31.5 yesterday, today's pending. PPI. - N/V/D. Resolved. Stool studies were negative for CDiff, Cryptosporidium, and Giardia. - Elevated troponin with abnormal EKG. S/P Lexiscan with no evidence for ischemia, cardiology has signed off. - Sepsis, PNA. BCx no growth [address] suspicious for left pneumonia. Zosyn. - HTN, Hx atrial fibrillation, DM, Hx CVA, ABNER per primary PLAN - Plan for EGD/Colonoscopy in am - Obtain consents - Clear liquids - NPO after MN - Golytely prep - Await today's labs - CBC in am - Further recommendations to follow based on results of above - Pt seen and examined by Dr. Bañuelos and myself and this note is written on his behalf Geena Massey Sep 03, 2016 16:38
[2016-09-03] MEDS: PANTOPRAZOLE SOD 40 MG DELAYED RELEASE TAB PO SCH (16:59)
--- NOTE | 2016-09-03 18:05 | HHI.NPPN ---
Subjective History of Present Illness 56 year old male with CKD, DM HTN, CVA Objective Data Data 09/02/16 09/03/16 18:59 06:59 Intake Total 956 ml 1518 ml Output Total 700 ml Balance 256 ml 1518 ml Intake Oral 360 ml 0 ml IV Total 596 ml 1518 ml Output Urine Total 700 ml # Voids 3 # Bowel Movements 2 2 Vital Signs Date Time Temp Pulse Resp B/P Pulse Ox O2 Delivery O2 Flow Rate FiO2 09/03/16 16:07 98.2 59 19 157/101 96 09/03/16 15:00 70 09/03/16 12:00 98.8 69 18 165/95 96 09/03/16 09:36 96 09/03/16 08:02 98.4 70 18 168/86 95 09/03/16 08:00 65 09/03/16 04:32 98.7 64 18 168/89 94 09/03/16 00:15 98.7 70 18 149/79 93 09/02/16 22:00 150/80 09/02/16 20:57 98.3 74 18 162/92 96 09/02/16 20:00 68 -: 09/03/16 1528 09/03/16 0801 Physical Exam General Appearance: Well Developed Neck Neck Exam: Neck Supple Pulmonary Resp Exam: Clear Bilaterally, Breath Sounds Equal Cardiology CV Exam: Regular, Normal Sinus Rhythm Gastrointestinal/Abdomen GI Exam: Soft, Non-Tender, Bowel Sounds Present Extremeties Extremities Exam: No Edema Assessment/Plan Problem List: (1) Acute renal failure Plan: cr declined to baseline at 1.6 likely CKD due to Htn/DM follow PRN follow up as out pt on discharge (2) Diabetes Plan: Continue to monitor Not well controlled blood sugars are above 200 (3) HTN (hypertension) Plan: Monitor blood pressure Parth Ruiz MD Sep 03, 2016 18:05
[2016-09-03] MEDS: CARVEDILOL 12.5 MG TAB PO SCH (21:39)
[2016-09-04 01:04] VITALS: BP 135/78; PULSE 64; RESP 16; TEMP 98; O2SAT 94
[2016-09-04] MEDS: PIPERACIL-TAZO 4.5 GM PREMIX 100 ML IV SCH ×3 (02:08→13:05)
[2016-09-04 04:08] VITALS: PULSE 60
[2016-09-04 04:15] VITALS: BP 158/96; PULSE 62; RESP 16; TEMP 98.5; O2SAT 99
[2016-09-04] MEDS: INSULIN NovoLIN REGULAR SUPPLEMENTAL SCALE SQ SCH ×3 (06:13→16:25)
[2016-09-04 07:56] VITALS: PULSE 57
[2016-09-04 08:00] VITALS: BP 148/84; PULSE 56; RESP 16; TEMP 98.1; O2SAT 94
[2016-09-04] MEDS: CARVEDILOL 12.5 MG TAB PO SCH (08:19)
[2016-09-04] MEDS: DOCUSATE SODIUM 50 MG/SENNA 8.6 MG TAB PO SCH (08:20)
[2016-09-04] MEDS: ATORVASTATIN 80 MG TAB PO SCH (08:20)
[2016-09-04] MEDS: PANTOPRAZOLE SOD 40 MG DELAYED RELEASE TAB PO SCH (08:20)
[2016-09-04] MEDS: SODIUM CHLORIDE 0.9% FLUSH 10 ML FLUSH IV FLUSH SCH (09:00)
[2016-09-04] MEDS: SODIUM CHLOR 0.9% 1000 ML INJ 1,000 ML IV SCH (10:05)
[2016-09-04 12:00] VITALS: BP 121/92; PULSE 120; RESP 18; TEMP 98.3; O2SAT 96
[2016-09-04] MEDS ORDERED: NIFEdipine 30 MG SUSTAINED RELEASE TAB PO SCH (13:30)
--- NOTE | 2016-09-04 13:43 | HHI.PR ---
Subjective Remarks no complains of chest pains or shortness of breath no diarrhea, abdominal pain, nausea or vomiting ambulated very well with a britta-walker - patient prefers this his blood sugars here are good with our diet Objective Vitals Vital Signs Date Time Temp Pulse Resp B/P Pulse Ox O2 Delivery O2 Flow Rate FiO2 09/04/16 08:00 98.1 56 16 148/84 94 09/04/16 07:56 57 09/04/16 04:15 98.5 62 16 158/96 99 09/04/16 04:08 60 09/04/16 01:04 98.0 64 16 135/78 94 09/03/16 21:20 98.3 62 16 180/103 100 158/96 09/03/16 16:07 98.2 59 19 157/101 96 09/03/16 15:00 70 I/O 09/03/16 09/03/16 09/03/16 09/04/16 09/04/16 09/04/16 07:00 15:00 23:00 07:00 15:00 23:00 Intake Total 769 ml 600 ml 0 ml 1104 ml Output Total 800 ml 770 ml Balance 769 ml -200 ml -770 ml 1104 ml Intake Oral 600 ml 0 ml 0 ml IV Total 769 ml 1104 ml Output Urine Total 800 ml 770 ml # Voids 6 # Bowel Movements 0 0 6 Result Diagram: 09/03/16 1528 09/03/16 0801 Imaging Last Impressions Myocardial Perfusion Scan Nuc Med 09/02/16 0000 Signed Impressions: Service Date/Time: Friday, September 02, 2016 11:17 - CONCLUSION: 1. No reversible perfusion defect to suggest stress-induced myocardial ischemia. RISK CATEGORY : Low (<1%% Annual Mortality Rate) Nitin Vail MD Chest X-Ray 09/01/163 Signed Impressions: Service Date/Time: Thursday, September 01, 2016 04:57 - CONCLUSION: Mild prominence of the interstitial markings. Ambrocio Brewster MD Abdomen/Pelvis CT 09/01/163 Signed Impressions: Service Date/Time: Thursday, September 01, 2016 05:51 - CONCLUSION: Bibasilar air space process worse on the left suspicious for pneumonia. Ambrocio Brewster MD Renal Ultrasound 09/01/16 0000 Signed Impressions: Service Date/Time: Thursday, September 01, 2016 21:01 - CONCLUSION: No obstructive uropathy or other acute abnormality demonstrated. Scot Sung MD Objective Remarks awake and alert, NAD anicteric lungs clear regular rhythm abdomen soft, nontender extremities no edema mild righ hemiparesis neuro exam- non focal A/P Assessment and Plan 56-year-old male with history of CVA with dysarthria and left sided hemiparesispresenting with fever chills nausea vomiting on and off diarrhea Sepsis likely secondary to pneumonia Possible aspiration -Patient started on Zosyn. 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 -give x 1 IV Phosphorous Chronic Diarrhea no active bleeding, decrease BM here patient refused colonoscopy- can be done as OP through PCP referral - abdominal exam- benign -GI- seen by Dr. Bañuelos--OP ff up - do scope as OP Hypertension History of CAD abnormal EKG with deep T-wave inversion no be no old EKG for comparison with history of CAD. Indeterminate troponin History of atrial fibrillation currently in sinus rhythm Lexiscan negative -Continue on Coreg- Hypertension- add Procardia 30 mg XL daily History of diabetes type 2 on oral hypoglycemics. hemoglobin A1c - 10 check fingersticks 3 times a day at bedtime with sliding scale for now- readings reviewed good redings here on our food- . I think he is not getting the diabetic diet he needs tob e on at the [facility] . A1C very elevated restart oral meds - Sliding scale needs closer ff up with PCP for control diabetes reinforcement education History of CVA with left-sided hemiparesis with dysarthric -PT consult ff neuro stable Lovenox subcutaneous for DVT prophylaxis PPI for GI prophylaxis Zofran IV prn CM - patient lives in a senior care- - DC today to senior care OP ff up with PCP- with GI referral Fly Medina MD Sep 04, 2016 13:43
[2016-09-04] MEDS ORDERED: AMOXICILLIN/CLAVULANATE K 500 MG TAB PO SCH (14:00)
--- NOTE | 2016-09-04 14:27 | HHI.GIFU ---
Subjective Remarks Pt resting in bed. Does not want EGD or colonoscopy. (Domi Gilliam) Objective Vitals I&O Vital Signs Date Time Temp Pulse Resp B/P Pulse Ox O2 Delivery O2 Flow Rate FiO2 09/04/16 12:00 Room Air 09/04/16 12:00 98.3 120 18 121/92 96 09/04/16 08:00 98.1 56 16 148/84 94 09/04/16 08:00 Room Air 09/04/16 07:56 57 09/04/16 04:15 98.5 62 16 158/96 99 09/04/16 04:08 60 09/04/16 01:04 98.0 64 16 135/78 94 09/03/16 21:20 98.3 62 16 180/103 100 158/96 09/03/16 16:07 98.2 59 19 157/101 96 09/03/16 15:00 70 I/O 09/03/16 09/03/16 09/03/16 09/04/16 09/04/16 09/04/16 07:00 15:00 23:00 07:00 15:00 23:00 Intake Total 769 ml 600 ml 0 ml 1104 ml Output Total 800 ml 770 ml Balance 769 ml -200 ml -770 ml 1104 ml Intake Oral 600 ml 0 ml 0 ml IV Total 769 ml 1104 ml Output Urine Total 800 ml 770 ml # Voids 6 # Bowel Movements 0 0 6 Laboratory Laboratory Tests Test 09/03/16 15:28 White Blood Count 8.4 Red Blood Count 3.99 Hemoglobin 11.0 Hematocrit 35.0 Mean Corpuscular Volume 87.7 Mean Corpuscular Hemoglobin 27.6 Mean Corpuscular Hemoglobin 31.5 Concent Red Cell Distribution Width 14.2 Platelet Count 163 Mean Platelet Volume 8.9 Date/Time Procedure Status Source Growth 09/02/16 16:00 Cryptosporidium Exam Received Stool Stool Pending 09/02/16 16:00 Giardia Antigen (FOSTER) Received Stool Stool Pending 09/01/16 20:00 Cryptosporidium Exam - Final Complete Stool Stool NEGATIVE - NO CRYPTOSPORIDIUM ANTIGEN... 09/01/16 20:00 Giardia Antigen (FOSTER) - Final Complete Stool Stool NEGATIVE - NO GIARDIA ANTIGEN DETECTE... 09/01/16 05:10 Urine Culture - Final Complete Urine Catheterized Urine 50-100,000 CFU/ML MIXED GRAM POSITIVE... 09/01/16 04:50 Aerobic Blood Culture - Preliminary Resulted Blood Peripheral NO GROWTH IN 3 DAYS 09/01/16 04:50 Anaerobic Blood Culture - Preliminary Resulted Blood Peripheral NO GROWTH IN 3 DAYS Imaging Last Impressions Myocardial Perfusion Scan Nuc Med 09/02/16 0000 Signed Impressions: Service Date/Time: Friday, September 02, 2016 11:17 - CONCLUSION: 1. No reversible perfusion defect to suggest stress-induced myocardial ischemia. RISK CATEGORY : Low (<1%% Annual Mortality Rate) Nitin Vail MD Chest X-Ray 09/01/16452 Signed Impressions: Service Date/Time: Thursday, September 01, 2016 04:57 - CONCLUSION: Mild prominence of the interstitial markings. Ambrocio Brewster MD Abdomen/Pelvis CT 09/01/16452 Signed Impressions: Service Date/Time: Thursday, September 01, 2016 05:51 - CONCLUSION: Bibasilar air space process worse on the left suspicious for pneumonia. Amrbocio Brewster MD Renal Ultrasound 09/01/16 0000 Signed Impressions: Service Date/Time: Thursday, September 01, 2016 21:01 - CONCLUSION: No obstructive uropathy or other acute abnormality demonstrated. Scot Sung MD Physical Exam HEENT: Normocephalic; atraumatic; no jaundice. CHEST: CTA CARDIAC: RRR + murmur. ABDOMEN: Soft, nondistended, nontender; no hepatosplenomegaly; bowel sounds are present in all four quadrants. EXTREMITIES: No clubbing, cyanosis, or edema. SKIN: Normal; no rash; no jaundice. VESSEL SLAGMAN: Alert and oriented times three, left sided weakness (Domi Gilliam LIBRARY PAGE ) Assessment and Plan Plan ASSESSMENT - Rectal bleeding. refusing EGD colonoscopy. States that he does have a hx of bleeding ulcers and last had EGD/Colonoscopy about 3 years ago in [place]. Abdomen/Pelvis CT (09/01/16)----> Bibasilar air space process worse on the left suspicious for pneumonia. He does report that he was recently started on a blood thinner, although this is not in his home med list and he cannot recall what this was. HH was 10.0/31.5 yesterday. Today's CBC is pending. Pt has been cleared by cardiology for EGD/Colonoscopy but refusing now. - Anemia secondary to acute blood loss. 11.0, stable from yesterday - N/V/D. Resolved. Stool studies were negative for CDiff, Cryptosporidium, and Giardia. - Elevated troponin with abnormal EKG. S/P Lexiscan with no evidence for ischemia, cardiology has signed off. - Sepsis, PNA. BCx no growth [address] suspicious for left pneumonia. Zosyn. - HTN, Hx atrial fibrillation, DM, Hx CVA, ABNER per primary PLAN - follow up with GI as outpatient - Pt refusing procedures so ok to d/c from GI standpoint - Pt seen and examined by Dr. Bañuelos and myself and this note is written on his behalf (Domi Gilliam) Physician Comments Unable to do prep yesterday, now refusing further testing. Dc home with gi fu . Thank you (Sulaiman Bañuelos MD) Domi Gilliam Sep 04, 2016 14:27 Sulaiman Bañuelos MD Sep 04, 2016 15:30
[2016-09-04] MEDS ORDERED: CARV12.5 PO (14:28)
[2016-09-04] MEDS ORDERED: PANT40TA3 PO (14:28)
[2016-09-04] MEDS ORDERED: NIFE30TA8 PO (14:28)
[2016-09-04] MEDS ORDERED: ALBUTEROL SULFATE 90 MCG/ACT HFA 18 GM INHALER INH PRN (14:30)
--- NOTE | 2016-09-04 14:31 | HHI.DS ---
Discharge Summary Admission Date Sep 01, 2016 at 06:37 Discharge Date: Sep 04, 2016 Admitting Diagnosis Sepsis, Elevated TN (1) Sepsis ICD Code: A41.9 Diagnosis: Principal (2) Acute renal failure ICD Code: N17.9 Diagnosis: Principal (3) Elevated troponin ICD Code: R74.8 Diagnosis: Secondary Procedures none Brief History - From Admission Patient is a 56-year-old right handed male with history of hypertension, diabetes type 2 history of atrial fibrillation, history of CVA 2 with left- sided hemiparalysis baseline ambulates with a cane, history of CAD "silent PR" basically ambulates around with a cane for safety occasional incontinence with use in an independent living facility with 6 other individuals. In [facility]. Patient states that for the past week now has been having chills vomiting on and off diarrhea for the past 2 weeks 3 times a week E. He was prescribed some pills with no improvement. Last night vomiting with previously ingested food no hematemesis associated with shaking "feels cold" sweating. Called EMS at 3 AM . Patient complains of severe dryness in the mouth. Patient denies any cough cold shortness of breath or chest discomfort. On evaluation in the ER shows a deep T-wave inversion with indeterminate troponin. Now admitted for further evaluation. Patient at bedside complains of dry dryness and thirst. CBC/BMP: 09/03/16 1528 09/03/16 0801 Significant Findings Laboratory Tests Test 09/01/16 09/01/16 09/02/16 09/03/16 16:29 23:00 05:19 08:01 Troponin I 0.29 NG/ML 0.39 NG/ML (0.02-0.05) (0.02-0.05) Chloride Level 110 MEQ/L 112 MEQ/L 109 MEQ/L (98-107) (98-107) (98-107) Blood Urea Nitrogen 22 MG/DL (7-18) 20 MG/DL (7-18) Creatinine 1.89 MG/DL 1.93 MG/DL 1.67 MG/DL (0.60-1.30) (0.60-1.30) (0.60-1.30) Estimat Glomerular Filtration 37 ML/MIN (>89) 36 ML/MIN (>89) 52 ML/MIN (>89) Rate Random Glucose 137 MG/DL 136 MG/DL (74-106) (74-106) Calcium Level 8.4 MG/DL 8.4 MG/DL (8.5-10.1) (8.5-10.1) White Blood Count 12.5 TH/MM3 (4.0-11.0) Red Blood Count 3.56 MIL/MM3 (4.50-5.90) Hemoglobin 10.0 GM/DL (13.0-17.0) Hematocrit 31.5 % (39.0-51.0) Mean Corpuscular Hemoglobin 31.7 % Concent (32.0-36.0) Platelet Count 141 TH/MM3 (150-450) Neutrophils (%) (Auto) 74.8 % (16.0-70.0) Neutrophils # (Auto) 9.4 TH/MM3 (1.8-7.7) Hemoglobin A1c 10.0 % (4.3-6.0) Total Bilirubin 1.4 MG/DL (0.2-1.0) Albumin 2.8 GM/DL (3.4-5.0) Cholesterol Level 85 MG/DL (120-200) Carbon Dioxide Level 17.0 MEQ/L (21.0-32.0) Test 09/03/16 15:28 Red Blood Count 3.99 MIL/MM3 (4.50-5.90) Hemoglobin 11.0 GM/DL (13.0-17.0) Hematocrit 35.0 % (39.0-51.0) Mean Corpuscular Hemoglobin 31.5 % Concent (32.0-36.0) PE at Discharge awake and alert, NAD anicteric lungs clear regular rhythm abdomen soft, nontender extremities no edema neuro exam- stable- dyarthria with left sided weakness Pt update on day of discharge afebrile, no headaches, chest pain, shortness of breath or diarrhea reinforced diet him was seen by dietitian here Hospital Course 56-year-old male with history of CVA with dysarthria and left sided hemiparesispresenting with fever chills nausea vomiting on and off diarrhea Sepsis likely secondary to pneumonia Possible aspiration -Patient started on Zosyn. 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 -give x 1 IV Phosphorous Chronic Diarrhea no active bleeding, decrease BM here patient refused colonoscopy- can be done as OP through PCP referral - abdominal exam- benign -GI- seen by Dr. Bañuelos--OP ff up - do scope as OP Hypertension History of CAD abnormal EKG with deep T-wave inversion no be no old EKG for comparison with history of CAD. Indeterminate troponin History of atrial fibrillation currently in sinus rhythm Lexiscan negative -Continue on Coreg- Hypertension- add Procardia 30 mg XL daily History of diabetes type 2 on oral hypoglycemics. hemoglobin A1c - 10 check fingersticks 3 times a day at bedtime with sliding scale for now- readings reviewed good redings here on our food- . I think he is not getting the diabetic diet he needs tob e on at the [facility] . A1C very elevated restart oral meds - Sliding scale needs closer ff up with PCP for control diabetes reinforcement education History of CVA with left-sided hemiparesis with dysarthric -PT consult ff neuro stable Lovenox subcutaneous for DVT prophylaxis PPI for GI prophylaxis Zofran IV prn CM - [facility] in a prison- - [facility] today to prison OP ff up with PCP- with GI referral Pt Condition on Discharge: Stable Discharge Disposition: Disch w/ Home Health Serv Discharge Time: <= 30 minutes Discharge Instructions DIET: Follow Instructions for: Heart Healthy Diet, Diabetic Diet Speech Therapy-Diet Recommends: Regular Activities you can perform: Weight Bearing as Nicky Follow up Referrals: Nephrology - 2 Weeks with [facility] PCP Follow-up - 09/08/16 with [facility] New Orders: BASIC METABOLIC PROF - 09/08/16 New Medications: Amoxicillin-Clavulanate (Augmentin) 500-125 mg Tab 500 MG PO Q8HR aspPN Days 7 Ref 0 TAB Carvedilol (Coreg) 12.5 Mg Tab 12.5 MG PO Q12HR HTN Days 30 TAB Nifedipine ER 24 HR (Nifedipine ER 24 HR) 30 Mg Tab 30 MG PO DAILY HTN Days 30 TAB Pantoprazole (Pantoprazole) 40 Mg Tab 40 MG PO DAILY GI Days 30 TAB Continued Medications: Albuterol 8.5 GM Inh (Proair Hfa 8.5 GM Inh) 90 Mcg/Act Aer 2 PUFF INH Q6H 108 mcg/actuation PRN SHORTNESS OF BREATH #1 Ref 0 INHALER Atorvastatin (Atorvastatin) 80 Mg Tab 80 MG PO HS Cholesterol Management #30 Ref 0 TAB Gabapentin (Gabapentin) 300 Mg Cap 300 MG PO BID #60 Ref 0 CAP Glimepiride (Glimepiride) 4 Mg Tab 4 MG PO BIDAC Blood Sugar Management #60 Ref 0 TAB Sitagliptin (Januvia) 25 Mg Tab 25 MG PO DAILY Blood Sugar Management #30 Ref 0 TAB Fly Medina MD Sep 04, 2016 14:31
[2016-09-04] MEDS ORDERED: AUGM500T7 PO (14:33)
--- NOTE | 2016-09-04 14:37 | HHI.FF ---
Face to Face Verification Diagnosis: (1) PNA (pneumonia) (2) Diabetes (3) HTN (hypertension) Home Health Nursing Order: Medical education Signs/symptoms of disease process Diabetic education Medication education-adverse effect Nursing assessment with vital signs Motor Vehicle Emissions Inspector Order: To Evaluate: Living conditions/environment, Support services I have seen patient Sai Andrews on 09/04/16. My clinical findings support the need for the requested home health care services because: Ltd mobility - disease progression Need for psychosocial assistance I certify that my clinical findings support that this patient is homebound because: Need for psychosocial assistance Fly Medina MD Sep 04, 2016 14:36
--- NOTE | 2016-09-04 15:23 | EKG ---
Date Performed: 09/04/2016 Time Performed: 07:47:04 PTAGE: 56 years EKG: Sinus bradycardia Possible left atrial abnormality rSr'(V1) - probable normal variant LVH w ith secondary repolarization abnormality Anterolateral ST-T changes may be due to hypertrophy and/or ischemia Abnormal ECG Compared to prior tracing no significant change PREVIOUS TRACING : 09/01/2016 18.18 DOCTOR: Shahram Maynard Interpretating Date/Time 09/04/2016 15:22:08
[2016-09-04] MEDS ORDERED: ATORVASTATIN 80 MG TAB PO SCH (21:00)
== END 2016-09-04 18:32 | DRG 871 ==
LOC: NEPC 04:45 → NEDA 06:37 → HCIS 09:22 → N04B 17:27
PROVIDERS: ADMIT Internal Medicine; ATTEND Internal Medicine
DX: A41.9 Sepsis, unspecified organism (principal); J69.0 Pneumonitis due to inhalation of food and vomit; N17.9 Acute kidney failure, unspecified; E11.22 Type 2 diabetes mellitus with diabetic chronic kidney disease; I69.354 Hemiplegia and hemiparesis following cerebral infarction affecting left non-dominant side; D62 Acute posthemorrhagic anemia; K92.1 Melena; E83.39 Other disorders of phosphorus metabolism; I25.10 Atherosclerotic heart disease of native coronary artery without angina pectoris; R19.7 Diarrhea, unspecified; E78.5 Hyperlipidemia, unspecified; N18.9 Chronic kidney disease, unspecified; I12.9 Hypertensive chronic kidney disease with stage 1 through stage 4 chronic kidney disease, or unspecified chronic kidney disease; E86.0 Dehydration; I25.2 Old myocardial infarction; Z87.891 Personal history of nicotine dependence; Z79.84 Long term (current) use of oral hypoglycemic drugs; I69.322 Dysarthria following cerebral infarction; Z87.11 Personal history of peptic ulcer disease
CPT/HCPCS: 71010; 74177; 76775; 78452; 80048; 80053; 80061; 81001; 82550; 82552; 82805; 82947; 82948; 83036; 83605; 83690; 83735; 84100; 84484; 85025; 85027; 85610; 85730; 86038; 87040; 87086; 87328; 87329; 87493; 93005; 93017; 93306; 96374; A9502; J1650; J2405; J2543; J2785; J3370; J7030; J7050; Q9967

== ENCOUNTER 2016-10-30 09:31 | Emergency (ER) | payer OTHER ==
[~2016-10-30] VITALS: Ht 190.5 cm; Wt 100.0 kg
[~2016-10-30 09:31] MED LIST changes: +ALBUAER3 INH; +ATOR1TAB18 PO; +AUGM500T7 PO; +CARV12.5 PO; -LISI10TA3 PO; +NIFE30TA8 PO; +PANT40TA3 PO; -SIMV40TA PO; +SITA25 PO
[2016-10-30 09:32] VITALS: BP 127/89; PULSE 85; RESP 20; TEMP 99; O2SAT 95
[2016-10-30] MEDS ORDERED: LOPE2CAP PO (09:53)
[2016-10-30] MEDS ORDERED: NITR1SUB3 SL (09:53)
[2016-10-30] MEDS ORDERED: SODIUM CHLOR 0.9% 1000 ML INJ 1,000 ML IV SCH (10:04)
[2016-10-30] MEDS ORDERED: SODIUM CHLORIDE 0.9% FLUSH 10 ML FLUSH IV FLUSH PRN (10:15)
[2016-10-30 10:45] LABS: BASOPHIL % 0.5 % (0.0-2.0); EOSINOPHIL # 0.1 TH/MM3 (0-0.4); EOSINOPHIL % 1.5 % (0.0-4.0); HEMATOCRIT 35.2 % (39.0-51.0); HEMO FLAGS DIFF FINAL; LYMPH % 17.8 % (9.0-44.0); LYMPHOCYTE # 1.3 TH/MM3 (1.0-4.8); MEAN CELL VOLUME 89.4 FL (80.0-100.0); MEAN CORPUSCULAR HEMOGLOBIN 28.4 PG (27.0-34.0); MEAN CORPUSCULAR HGB CONC 31.8 % (32.0-36.0); MONO % 10.1 % (0.0-8.0); NEUT % 70.1 % (16.0-70.0); PLATELET COUNT 180 TH/MM3 (150-450); RED BLOOD COUNT 3.94 MIL/MM3 (4.50-5.90); RED CELL DISTRIBUTION WIDTH 14.4 % (11.6-17.2); WHITE BLOOD COUNT 7.1 TH/MM3 (4.0-11.0)
[2016-10-30 11:03] LABS: BICARBONATE 19.2 MEQ/L (21.0-32.0); POTASSIUM 4.4 MEQ/L (3.5-5.1)
[2016-10-30 11:34] VITALS: O2SAT 100
--- NOTE | 2016-10-30 11:59 | PD ---
HPI Chief Complaint: GI Complaint Time Seen by Provider: 09:47 Travel History International Travel<30 days: No Contact w/Intl Traveler<30days: No Traveled to known affect area: No History of Present Illness HPI 56-year-old male arrives to the ER after 1 month of diarrhea. Over the past 2 days it became severe leading to the ER evaluation this morning. He's had no vomiting. He's had no fever. The diet has been normal. Evidently now and then he has constipation for a few days followed by multiple episodes of diarrhea continuously for days again. He was seen and evaluated here nearly 2 months prior with a similar complaint and C. difficile studies were negative. Patient was admitted 2 months ago for sepsis due to pneumonia. At that time he suffered acute kidney injury. Note is also made of diabetes type 2. PFSH Past Medical History Autoimmune Disease: No Heart Rhythm Problems: Yes (history of A-fib) Cancer: No Cardiovascular Problems: Yes High Cholesterol: No Chest Pain: Yes Congestive Heart Failure: No Cerebrovascular Accident: Yes Diabetes: Yes Patient Takes Glucophage: No Diminished Hearing: No Endocrine: Yes Genitourinary: No Headaches: Yes Hypertension: Yes Immune Disorder: No Musculoskeletal: No Neurologic: Yes Psychiatric: No Reproductive: No Respiratory: No Migraines: No Myocardial Infarction: Yes Seizures: No Sickle Cell Disease: No Thyroid Disease: No Past Surgical History Abdominal Surgery: No Cardiac Surgery: No Ear Surgery: No Endocrine Surgery: No Eye Surgery: No Genitourinary Surgery: No Gynecologic Surgery: No Oral Surgery: No Thoracic Surgery: No Other Surgery: Yes (THROAT AND ARM SURGERY PER PT) Social History Alcohol Use: No Tobacco Use: No Substance Use: Yes (marijuana-quit 5 yrs ago) Allergies-Medications (Allergen,Severity, Reaction): Coded Allergies: No Known Allergies (Unverified , 10/30/16) Reported Meds & Prescriptions Reported Meds & Active Scripts Active Flagyl (Metronidazole) 500 Mg Tab 500 Mg PO TID 14 Days Pantoprazole (Pantoprazole Sodium) 40 Mg Tab 40 Mg PO DAILY 30 Days Nifedipine ER 24 HR (Nifedipine) 30 Mg Tab 30 Mg PO DAILY 30 Days Coreg (Carvedilol) 12.5 Mg Tab 12.5 Mg PO Q12HR 30 Days Reported Nitroglycerin SL (Nitroglycerin) 0.4 Mg Subl 0.4 Mg SL DIRECTED PRN ONE TABLET UNDER THE TONGUE NEEDED FOR CHEST PAIN, MAY REPEAT EVERY FIVE MINUTES FOR A TOTAL OF 3 DOSES OR CALL 911 IF NO RELIEF Loperamide (Loperamide HCl) 2 Mg Cap 2 Mg PO DIRECTED PRN One capsule after each loose stool. Not to exceed 8 capsules per day. Januvia (Sitagliptin Phosphate) 25 Mg Tab 50 Mg PO DAILY Proair Hfa 8.5 GM Inh (Albuterol Sulfate) 90 Mcg/Act Aer 2 Puff INH Q6H PRN 108 mcg/actuation Atorvastatin (Atorvastatin Calcium) 80 Mg Tab 80 Mg PO HS Gabapentin 300 Mg Cap 300 Mg PO BID Glimepiride 4 Mg Tab 2 Mg PO DAILY Review of Systems Except as stated in HPI: all other systems reviewed are Neg General / Constitutional: No: Fever Gastrointestinal: Positive: Diarrhea, No: Abdominal Pain Physical Exam Narrative GENERAL: 56-year-old male well-nourished well-developed no acute distress SKIN: Warm and dry. HEAD: Atraumatic. Normocephalic. EYES: Pupils equal and round. No scleral icterus. No injection or drainage. ENT: No nasal bleeding or discharge. Mucous membranes pink and moist. NECK: Trachea midline. No JVD. CARDIOVASCULAR: Regular rate and rhythm. RESPIRATORY: No accessory muscle use. Clear to auscultation. Breath sounds equal bilaterally. GASTROINTESTINAL: Abdomen soft, non-tender, nondistended. Hepatic and splenic margins not palpable. MUSCULOSKELETAL: Extremities without clubbing, cyanosis, or edema. No obvious deformities. NEUROLOGICAL: Awake and alert. No obvious cranial nerve deficits. Motor grossly within normal limits. Five out of 5 muscle strength in the arms and legs. Normal speech. PSYCHIATRIC: Appropriate mood and affect; insight and judgment normal. Data Data Last Documented VS Vital Signs Date Time Temp Pulse Resp B/P Pulse Ox O2 Delivery O2 Flow Rate FiO2 10/30/16 11:34 100 Room Air 10/30/16 09:32 99.0 85 20 127/89 Vital signs reviewed Orders Basic Metabolic Panel (Bmp) (10/30/16 10:04) Complete Blood Count With Diff (10/30/16 10:04) Iv Access Insert/Monitor (10/30/16 10:04) Ecg Monitoring (10/30/16 10:04) Oximetry (10/30/16 10:04) Sodium Chlor 0.9% 1000 Ml Inj (Ns 1000 M (10/30/16 10:04) Sodium Chloride 0.9% Flush (Ns Flush) (10/30/16 10:15) C Diff Toxin Pcr (10/30/16 10:04) Labs Laboratory Tests Test 10/30/16 10:30 White Blood Count 7.1 TH/MM3 Red Blood Count 3.94 MIL/MM3 Hemoglobin 11.2 GM/DL Hematocrit 35.2 % Mean Corpuscular Volume 89.4 FL Mean Corpuscular Hemoglobin 28.4 PG Mean Corpuscular Hemoglobin 31.8 % Concent Red Cell Distribution Width 14.4 % Platelet Count 180 TH/MM3 Mean Platelet Volume 8.7 FL Neutrophils (%) (Auto) 70.1 % Lymphocytes (%) (Auto) 17.8 % Monocytes (%) (Auto) 10.1 % Eosinophils (%) (Auto) 1.5 % Basophils (%) (Auto) 0.5 % Neutrophils # (Auto) 5.0 TH/MM3 Lymphocytes # (Auto) 1.3 TH/MM3 Monocytes # (Auto) 0.7 TH/MM3 Eosinophils # (Auto) 0.1 TH/MM3 Basophils # (Auto) 0.0 TH/MM3 CBC Comment DIFF FINAL Differential Comment Sodium Level 139 MEQ/L Potassium Level 4.4 MEQ/L Chloride Level 113 MEQ/L Carbon Dioxide Level 19.2 MEQ/L Anion Gap 7 MEQ/L Blood Urea Nitrogen 30 MG/DL Creatinine 2.24 MG/DL Estimat Glomerular Filtration 37 ML/MIN Rate Random Glucose 154 MG/DL Calcium Level 8.2 MG/DL MDM Medical Decision Making Medical Screen Exam Complete: Yes Emergency Medical Condition: Yes Medical Record Reviewed: Yes Differential Diagnosis Constipation, Gastritis, Acute Cholecystitis, Biliary Colic, Pancreatitis, SENIOR , Hepatitis, Bowel Obstruction, Cystitis, Mesenteric Ischemia, AAA, Appendicitis , Renal Stone/Hydronephrosis, GERD, perforated viscous Narrative Course CBC & BMP Diagram 10/30/16 10:30 Anion gap is 7 The relative renal insufficiency is stable The patient is resting comfortably and feels better, is alert and in no distress. The patients results and examination findings were discussed. The repeat examination is unremarkable and benign. The history, exam, diagnostic testing, and current condition do not suggest any significant pathology to warrant further testing, continued ED treatment, admission, or surgical evaluation at this point. The vital signs have been stable. The patient does not have uncontrollable pain, intractable vomiting, or other significant symptoms. The patient's condition is stable and appropriate for discharge. The patient will pursue further outpatient evaluation with a primary care physician or other designated or consulting physician as indicated in the discharge instructions. The patient expressed understanding and was agreeable with this plan. Diagnosis Primary Impression: Diarrhea Qualified Code: R19.7 - Diarrhea, unspecified type Referrals: Primary Care Physician 2 days Additional Instructions: You have a choice when it comes to health care, and we are glad that you chose [facility]. Hopefully, we have met your expectations on today's visit. You are welcome to return to [facility] at any time, as we are committed to meeting the health care needs of our community. Med/Other Pt SpecificInfo: Prescription(s) given Scripts Metronidazole (Flagyl)500 Mg [id number] Mg PO TID 14 Days Ref 0 Prov:Nitin Jean MD 10/30/16 Disposition: 01 DISCHARGE HOME Condition: Stable Nitin Jean MD Oct 30, 2016 11:59
[2016-10-30] MEDS ORDERED: METR-1 PO (12:20)
[2016-11-11] MEDS ORDERED: NITR.3 SL (10:32)
[2016-11-11] MEDS ORDERED: ALBUAER3 INH (10:48)
[2016-11-11] MEDS ORDERED: ATOR1TAB18 PO (11:26)
[2016-11-11] MEDS ORDERED: GABA300C5 PO (11:26)
[2016-11-11] MEDS ORDERED: GLIM4TAB PO (11:26)
[2016-12-12] MEDS ORDERED: LISI-519 PO (10:26)
== END 2016-10-30 12:48 | disposition home or self-care (01) ==
LOC: NEPE 09:31
DX: R19.7 Diarrhea, unspecified (principal); E11.9 Type 2 diabetes mellitus without complications; Z79.84 Long term (current) use of oral hypoglycemic drugs
CPT/HCPCS: 80048; 85025; 96360; 99284; J7030

== ENCOUNTER 2017-01-07 14:42 | Emergency (ER) | payer OTHER ==
[~2017-01-07] VITALS: Ht 193 cm; Wt 104.5 kg
[~2017-01-07 14:42] MED LIST changes: -AUGM500T7 PO; +LISI-519 PO; +LOPE2CAP PO; -NIFE30TA8 PO; +NITR1SUB3 SL; -PANT40TA3 PO
[2017-01-07 15:07] VITALS: BP 84/53; PULSE 79; RESP 16; TEMP 98.4; O2SAT 97
[2017-01-07 15:38] VITALS: BP 101/57; O2SAT 98
--- NOTE | 2017-01-07 15:46 | PD ---
HPI Chief Complaint: Fall Time Seen by Provider: 15:28 Travel History International Travel<30 days: No Contact w/Intl Traveler<30days: No Traveled to known affect area: No History of Present Illness HPI 56yo M with PMH of CVA and left sided weakness presents to the ED with c/o left hip pain s/p fall yesterday morning. Pt also fell 2 days ago. He said he is not steady on his legs since the stroke 3 years ago and uses a cane. Denies any head trauma, new weakness or numbness, chest pain, sob, n/v, abdominal pain. Pt has a supportive employment case manager who is looking into placing him in a higher level of care since he is living in a religious senior care now. PFSH Past Medical History Autoimmune Disease: No Heart Rhythm Problems: Yes (history of A-fib) Cancer: No Cardiovascular Problems: Yes (htn on meds, [place] ) High Cholesterol: No Chest Pain: Yes Congestive Heart Failure: No Cerebrovascular Accident: Yes (cva x2) Coronary Artery Disease: Yes Diabetes: Yes Patient Takes Glucophage: Yes Diminished Hearing: No Endocrine: Yes Genitourinary: No Headaches: Yes Hypertension: Yes Immune Disorder: No Musculoskeletal: No Neurologic: Yes Psychiatric: No Reproductive: No Respiratory: No Migraines: No Myocardial Infarction: Yes Seizures: No Sickle Cell Disease: No Thyroid Disease: No Influenza Vaccination: No ?: Not Past Surgical History Abdominal Surgery: No Cardiac Surgery: No Ear Surgery: No Endocrine Surgery: No Eye Surgery: No Genitourinary Surgery: No Gynecologic Surgery: No Oral Surgery: No Thoracic Surgery: No Other Surgery: Yes (THROAT AND ARM SURGERY PER PT) Social History Alcohol Use: No Tobacco Use: No Substance Use: Yes (marijuana-quit 5 yrs ago) Allergies-Medications (Allergen,Severity, Reaction): Coded Allergies: No Known Allergies (Unverified , 01/07/17) Reported Meds & Prescriptions Reported Meds & Active Scripts Active Tylenol (Acetaminophen) 325 Mg Tab 650 Mg PO Q6H PRN Lisinopril 5 Mg Tab 5 Mg PO DAILY Atorvastatin (Atorvastatin Calcium) 80 Mg Tab 80 Mg PO HS Gabapentin 300 Mg Cap 300 Mg PO BID Glimepiride 4 Mg Tab 4 Mg PO DAILY Coreg (Carvedilol) 12.5 Mg Tab 12.5 Mg PO Q12HR 30 Days Reported Proair Hfa 8.5 GM Inh (Albuterol Sulfate) 90 Mcg/Act Aer 2 Puff INH Q4-6H PRN 108 mcg/actuation Nitroglycerin SL (Nitroglycerin) 0.4 Mg Subl 0.4 Mg SL DIRECTED PRN ONE TABLET UNDER THE TONGUE NEEDED FOR CHEST PAIN, MAY REPEAT EVERY FIVE MINUTES FOR A TOTAL OF 3 DOSES OR CALL 911 IF NO RELIEF Loperamide (Loperamide HCl) 2 Mg Cap 2 Mg PO DIRECTED PRN One capsule after each loose stool. Not to exceed 8 capsules per day. Januvia (Sitagliptin Phosphate) 25 Mg Tab 50 Mg PO DAILY Review of Systems Except as stated in HPI: all other systems reviewed are Neg Physical Exam Narrative GENERAL: 56yo M not in distress. SKIN: Focused skin assessment warm/dry. HEAD: Atraumatic. Normocephalic. EYES: Pupils not reactive bilaterally, recent laser surgery bilaterally. No scleral icterus. ENT: No nasal bleeding or discharge. Mucous membranes pink and moist. NECK: Trachea midline. No JVD. CARDIOVASCULAR: Regular rate and rhythm. No murmur appreciated. RESPIRATORY: No accessory muscle use. Clear to auscultation. Breath sounds equal bilaterally. GASTROINTESTINAL: Abdomen soft, non-tender, nondistended. MUSCULOSKELETAL: Left hip: Mild ttp. Good range of motion. Distal pulses intact. Left elbow contracted, some abrasion. Distal pulses intact. NEUROLOGICAL: Awake and alert. Left upper arm contracted, muscle strength 2/5. LLE muscle strength 4/5. Decreased sensation PSYCHIATRIC: Appropriate mood and affect; insight and judgment normal. Data Data Last Documented VS Vital Signs Date Time Temp Pulse Resp B/P (MAP) Pulse Ox O2 Delivery O2 Flow Rate FiO2 01/07/17 17:48 01/07/17 16:54 70 18 97 Room Air 01/07/17 15:07 98.4 Orders Orders Hip, Uni(Ap&Lat) W Ap Pelvis (01/07/17 ) Elbow, Limited (Ap&Lat) (01/07/17 ) Acetaminophen (Tylenol) (01/07/17 17:45) Ed Discharge Order (01/07/17 17:45) MDM Medical Decision Making Medical Screen Exam Complete: Yes Emergency Medical Condition: Yes Differential Diagnosis Fracture vs. contusion vs. musculoskeletal pain Narrative Course 56yo M with left hip pain after mechanical falling. Also said he fell on left elbow. No new neurologic deficits. Discussed with supportive employment case manager who went to speak with the patient and he said he has a place to live and has a supportive employment case manager who is working on his placement for a higher level of care facility. Xray left elbow: unremarkable. Xray left hip showed osteoarthritis of the hips. No acute abnormality. Pt given acetaminophen. Pt reevaluated at bedside and feels better. He is accompanied by personal care worker from [facility] and return precautions given. Diagnosis Primary Impression: Fall Qualified Codes: W19.XXXA - Unspecified fall, initial encounter Patient Instructions: General Instructions Departure Forms: Tests/Procedures Additional Instructions: Please follow up with your primary care physician in 3-7 days. Return to the ED if symptoms worsen. Med/Other Pt SpecificInfo: Prescription(s) given Scripts Acetaminophen (Tylenol) 325 Mg Tab 650 MG PO Q6H Y for PAIN SCALE 1 TO 4, #20 TAB 0 Refills Prov: Racquel Alvarez DO 01/07/17 Disposition: 01 DISCHARGE HOME Condition: Stable Racquel Alvarez DO Jan 07, 2017 15:46
--- NOTE | 2017-01-07 16:37 | RADRPT ---
EXAM DATE/TIME: 01/07/2017 16:04 [facility] COMPARISON: No previous studies available for comparison. INDICATIONS : Left hip pain post fall. MEDICAL HISTORY : Stroke. SURGICAL HISTORY : None. ENCOUNTER: Initial ACUITY: 2 days PAIN SCORE: 5/10 LOCATION: Left hip. FINDINGS: 3 views of the pelvis and left hip show joint space narrowing with periarticular sclerotic change and osteophyte production involving both hips. No femoral head flattening or subchondral geode formation . No fracture or dislocation. Soft tissues are unremarkable. CONCLUSION: 1. Osteoarthritis of the hips. No acute abnormality. Jermaine Malone Jr., MD on January 07, 2017 at 16:34 Board Certified Radiologist. This report was verified electronically.
--- NOTE | 2017-01-07 16:38 | RADRPT ---
EXAM DATE/TIME: 01/07/2017 16:04 [facility] COMPARISON: No previous studies available for comparison. INDICATIONS : Left elbow pain post fall. MEDICAL HISTORY : Stroke. SURGICAL HISTORY : None. ENCOUNTER: Initial ACUITY: 2 days PAIN SCORE: 5/10 LOCATION: Left elbow. FINDINGS: Two view examination of the left elbow demonstrates no soft tissue swelling, joint effusion, fracture or dislocation. Bony mineralization is normal. CONCLUSION: Unremarkable limited examination of the left elbow. Jermaine Malone Jr., MD on January 07, 2017 at 16:36 Board Certified Radiologist. This report was verified electronically.
[2017-01-07 16:54] VITALS: BP 100/57; PULSE 70; RESP 18; O2SAT 97
[2017-01-07] MEDS ORDERED: TYLE325T PO (17:44)
[2017-01-07] MEDS ORDERED: ACETAMINOPHEN 325 MG TAB PO ONE (17:45)
== END 2017-01-07 17:48 | disposition home or self-care (01) ==
LOC: PHED 14:42
DX: M25.552 Pain in left hip (principal); M25.522 Pain in left elbow; W19.XXXA Unspecified fall, initial encounter
CPT/HCPCS: 73070; 73502; 99284

== ENCOUNTER 2017-01-10 12:35 | Inpatient (IN) | payer OTHER ==
[2017-01-10] VITALS (8 sets, daily range): BP systolic 98–128; BP diastolic 56–79; PULSE 100–153; RESP 16–24; TEMP 97.5–98.4; O2SAT 95–100
[~2017-01-10] VITALS: Ht 160 cm; Wt 114.0 kg
[~2017-01-10 12:35] MED LIST changes: -ATOR1TAB18 PO; +ATOR80TA45 PO; +TYLE325T PO
[2017-01-10] MEDS ORDERED: SODIUM CHLORIDE 0.9% FLUSH 10 ML FLUSH IVF PRN (13:00)
[2017-01-10] MEDS ORDERED: MECLIZINE HCL 25 MG TAB PO ONE (13:00)
[2017-01-10 13:31] LABS: AUTOMATED NEUTROPHIL # 3.7 TH/MM3 (1.8-7.7); BASOPHIL % 0.5 % (0.0-2.0); EOSINOPHIL # 0.1 TH/MM3 (0-0.4); EOSINOPHIL % 1.5 % (0.0-4.0); HEMATOCRIT 32.1 % (39.0-51.0); HEMO FLAGS DIFF FINAL; LYMPH % 19.3 % (9.0-44.0); LYMPHOCYTE # 1.1 TH/MM3 (1.0-4.8); MEAN CELL VOLUME 92.3 FL (80.0-100.0); MEAN CORPUSCULAR HEMOGLOBIN 29.3 PG (27.0-34.0); MEAN CORPUSCULAR HGB CONC 31.8 % (32.0-36.0); MONO % 13.1 % (0.0-8.0); NEUT % 65.6 % (16.0-70.0); PLATELET COUNT 135 TH/MM3 (150-450); RED BLOOD COUNT 3.48 MIL/MM3 (4.50-5.90); WHITE BLOOD COUNT 5.6 TH/MM3 (4.0-11.0)
--- NOTE | 2017-01-10 13:54 | PD ---
HPI . Fall Chief Complaint: Fall Time Seen by Provider: 12:57 Travel History International Travel<30 days: No Contact w/Intl Traveler<30days: No Traveled to known affect area: No History of Present Illness HPI Patient presents complaining with dizziness. He states he's been feeling dizzy for about a week and that he has fallen a couple times in the last week. He states that he has to walk with a cane because of a previous stroke and that he has had difficulties with a cane causing him to fall. I asked him if he has suffered any injuries as a result of the falls and he states that he "skinned his knees." He does describe the dizziness as vertigo stating that it makes him feel off balance. He denies headache or blurred vision. [id number]: His head QUALITY: Off balance SEVERITY: Mild DURATION: One week TIMING: Continuous CONTEXT: Previous stroke and previous NH MODIFYING FACTORS: Exacerbated by certain movements ASSOCIATED SYMPTOMS: No associated vomiting, blurred vision or headache PFSH Past Medical History Autoimmune Disease: No Heart Rhythm Problems: Yes (history of A-fib) Cancer: No Cardiovascular Problems: Yes (htn on meds, [place] ) High Cholesterol: No Chest Pain: Yes Congestive Heart Failure: No Cerebrovascular Accident: Yes (cva x2) Coronary Artery Disease: Yes Diabetes: Yes Patient Takes Glucophage: Yes (metformin ) Diminished Hearing: No Endocrine: Yes Genitourinary: No Headaches: Yes Hypertension: Yes Immune Disorder: No Musculoskeletal: No Neurologic: Yes Psychiatric: No Reproductive: No Respiratory: No Migraines: No Myocardial Infarction: Yes Seizures: No Sickle Cell Disease: No Thyroid Disease: No Past Surgical History Abdominal Surgery: No Cardiac Surgery: No Ear Surgery: No Endocrine Surgery: No Eye Surgery: No Genitourinary Surgery: No Gynecologic Surgery: No Oral Surgery: No Thoracic Surgery: No Other Surgery: Yes (THROAT AND ARM SURGERY PER PT) Social History Alcohol Use: No Tobacco Use: No Substance Use: Yes (marijuana-quit 5 yrs ago) Allergies-Medications (Allergen,Severity, Reaction): Coded Allergies: No Known Allergies (Unverified , 01/07/17) Reported Meds & Prescriptions Reported Meds & Active Scripts Active Tylenol (Acetaminophen) 325 Mg Tab 650 Mg PO Q6H PRN Lisinopril 5 Mg Tab 5 Mg PO DAILY Atorvastatin (Atorvastatin Calcium) 80 Mg Tab 80 Mg PO HS Gabapentin 300 Mg Cap 300 Mg PO BID Glimepiride 4 Mg Tab 4 Mg PO DAILY Coreg (Carvedilol) 12.5 Mg Tab 12.5 Mg PO Q12HR 30 Days Reported Proair Hfa 8.5 GM Inh (Albuterol Sulfate) 90 Mcg/Act Aer 2 Puff INH Q4-6H PRN 108 mcg/actuation Nitroglycerin SL (Nitroglycerin) 0.4 Mg Subl 0.4 Mg SL DIRECTED PRN ONE TABLET UNDER THE TONGUE NEEDED FOR CHEST PAIN, MAY REPEAT EVERY FIVE MINUTES FOR A TOTAL OF 3 DOSES OR CALL 911 IF NO RELIEF Loperamide (Loperamide HCl) 2 Mg Cap 2 Mg PO DIRECTED PRN One capsule after each loose stool. Not to exceed 8 capsules per day. Januvia (Sitagliptin Phosphate) 25 Mg Tab 50 Mg PO DAILY Review of Systems Except as stated in HPI: all other systems reviewed are Neg Eyes: No: Blurred Vision HENT: Positive: Vertigo, No: Headaches Cardiovascular: No: Chest Pain or Discomfort Respiratory: No: Shortness of Breath Gastrointestinal: No: Nausea, Vomiting, Diarrhea Genitourinary: No: Urgency, Frequency, Dysuria Skin: Positive Other (abrasions to both knees) Physical Exam Narrative GENERAL: Patient is awake and alert and able to give his own history. SKIN: warm/dry. No rash or lesions. Good follow-up. Good turgor. HEAD: Normocephalic. Atraumatic. EYES: Pupils equal and round. No scleral icterus. No injection or drainage. ENT: No nasal bleeding or discharge. Mucous membranes pink and moist. NECK: Trachea midline. Full range of motion without pain.. CARDIOVASCULAR: Regular rate and rhythm. RESPIRATORY: No accessory muscle use. Clear to auscultation. Breath sounds equal bilaterally. GASTROINTESTINAL: Abdomen soft. Nontender. Bowel sounds present. Nondistended. MUSCULOSKELETAL: No obvious deformities. NEUROLOGICAL: Awake and alert. No obvious cranial nerve deficits. Motor grossly within normal limits. Normal speech. PSYCHIATRIC: Appropriate mood and affect; insight and judgment normal. Data Data Last Documented VS Vital Signs Date Time Temp Pulse Resp B/P (MAP) Pulse Ox O2 Delivery O2 Flow Rate FiO2 01/10/17 16:36 110 24 128/79 (95) 95 Room Air 01/10/17 12:40 97.5 Orders Orders Electrocardiogram (01/10/17 12:57) Basic Metabolic Panel (Bmp) (01/10/17 12:57) Complete Blood Count With Diff (01/10/17 12:57) Troponin I (01/10/17 12:57) Ct Brain W/O Iv Contrast(Rout) (01/10/17 12:57) Ecg Monitoring (01/10/17 12:57) Iv Access Insert/Monitor (01/10/17 12:57) Oximetry (01/10/17 12:57) Meclizine (Antivert) (01/10/17 13:00) Sodium Chloride 0.9% Flush (Ns Flush) (01/10/17 13:00) Acetaminophen (Tylenol) (01/10/17 14:00) Protein Corrected Calcium(Pcc) (01/10/17 14:40) Insulin Human Regular Inj (Novolin R Inj (01/10/17 16:00) Dextrose 50% In Leonid (Syr) Inj (D50w (Syr (01/10/17 16:00) Calcium Gluconate Inj (Calcium Gluconate (01/10/17 16:00) Sodium Polysty Sulfate Liq (Kayexalate L (01/10/17 16:00) Electrocardiogram (01/10/17 ) Sodium Chlor 0.45%... W/Sodium Bicarbona (01/10/17 16:15) Sodium Chlor 0.9% 1000 Ml Inj (Ns 1000 M (01/10/17 16:15) Sodium Chlor 0.9% 1000 Ml Inj (Ns 1000 M (01/10/17 16:15) Consult Nephrology (01/10/17 ) (Hub Use Only)Inp Phy Cons/Ref (01/10/17 ) Sodium Bicarbonate 8.4% Inj (Sodium Bica (01/10/17 16:23) Water Sterile For I... W/Sodium Bicarbon (01/10/17 16:45) Sodium Chlor 0.9% 1000 Ml Inj (Ns 1000 M (01/10/17 17:00) Sodium Chlor 0.9% 1000 Ml Inj (Ns 1000 M (01/10/17 17:00) Sodium Chlor 0.9% 1000 Ml Inj (Ns 1000 M (01/10/17 17:00) Us Kidney/Renal/Bladder (01/10/17 ) Echo 2d Comp With Doppler (01/10/17 ) Acetaminophen (Tylenol) (01/10/17 17:00) Albuterol Hfa Inh (Proair Hfa Inh) (01/10/17 17:00) Atorvastatin (Lipitor) (01/10/17 21:00) Nitroglycerin Sl (Nitrostat Sl) (01/10/17 17:00) Aspirin Ec (Ecotrin Ec) (01/10/17 17:00) Heparin Infusion RUBÉN.Q1H (01/10/17 16:53) Heparin-D5w 25,000 U/250 Ml (Heparin-D5w (01/10/17 17:00) Act Partial Throm Time (Ptt) (01/10/17 16:53) Prothrombin Time / Inr (Pt) (01/10/17 16:53) Cbc No Diff, Includes Plts (01/10/17 16:53) Cbc No Diff, Includes Plts (01/13/17 06:00) Act Partial Throm Time (Ptt) (01/10/17 23:53) Occult Blood (Hemoccult) Stool (01/10/17 16:53) Insulin Aspart Supplemtl Scale (Novolog (01/10/17 17:00) Urinary Catheter Management RUBÉN.Q8H (01/10/17 16:55) Admit Order (Ed Use Only) (01/10/17 16:55) Arterial Blood Gas (Abg) (01/10/17 ) Comprehensive Metabolic Panel (01/10/17 20:00) Complete Blood Count With Diff (01/11/17 06:00) Comprehensive Metabolic Panel (01/11/17 06:00) Magnesium (Mg) (01/11/17 06:00) Labs Laboratory Tests Test 01/10/17 13:20 01/10/17 14:40 White Blood Count 5.6 TH/MM3 Red Blood Count 3.48 MIL/MM3 Hemoglobin 10.2 GM/DL Hematocrit 32.1 % Mean Corpuscular Volume 92.3 FL Mean Corpuscular Hemoglobin 29.3 PG Mean Corpuscular Hemoglobin Concent 31.8 % Red Cell Distribution Width 15.0 % Platelet Count 135 TH/MM3 Mean Platelet Volume 9.0 FL Neutrophils (%) (Auto) 65.6 % Lymphocytes (%) (Auto) 19.3 % Monocytes (%) (Auto) 13.1 % Eosinophils (%) (Auto) 1.5 % Basophils (%) (Auto) 0.5 % Neutrophils # (Auto) 3.7 TH/MM3 Lymphocytes # (Auto) 1.1 TH/MM3 Monocytes # (Auto) 0.7 TH/MM3 Eosinophils # (Auto) 0.1 TH/MM3 Basophils # (Auto) 0.0 TH/MM3 CBC Comment DIFF FINAL Differential Comment Blood Urea Nitrogen 99 MG/DL Creatinine 10.14 MG/DL Random Glucose 69 MG/DL Total Protein 6.6 GM/DL Calcium Level 7.2 MG/DL Sodium Level 141 MEQ/L Potassium Level 6.5 MEQ/L Chloride Level 121 MEQ/L Carbon Dioxide Level 10.7 MEQ/L Anion Gap 9 MEQ/L Estimat Glomerular Filtration Rate 6 ML/MIN Protein Corrected Calcium 7.5 MG/DL Troponin I 2.22 NG/ML MDM Medical Decision Making Medical Screen Exam Complete: Yes Emergency Medical Condition: Yes Medical Record Reviewed: Yes (penitentiary records were reviewed. He has a history of previous CVA and previous NH. He was seen here on 01/07 following a fall with an injury to a hip and knee. Those were x-rayed and found to be negative.) Interpretation(s) A flutter with a ventricular response of 85 Differential Diagnosis Differential diagnosis of dizziness includes but is not limited to vertigo, dehydration, acute blood loss, sepsis, ACS Narrative Course This patient presents with dizziness. He describes vertigo. I have ordered meclizine. CT of his head is pending. Last Impressions Head CT 01/10/17 1257 Signed Impressions: Service Date/Time: Tuesday, January 10, 2017 13:32 - CONCLUSION: No acute disease. Jermaine Malone Jr., MD CBC Diagram 01/10/17 13:20 BMP Diagram 01/10/17 14:40 Calcium Level 7.2 *L I have subsequently ordered IV insulin/D50, calcium and Kayexalate. I have also ordered IV fluids with sodium bicarbonate. I have also called both nephrology and the building maintenance repairer. 4:30 PM The pharmacy called to question the order for 1/2 NS and 200 mEq of sodium bicarbonate. They are concerned about his sclerosing the veins. They suggested sterile water and sodium bicarbonate. I have changed the order. I am giving him IV normal saline also. Critical Care Narrative Aggregate critical care time was 60 minutes. Time to perform other separately billable procedures was not included in the critical care time. My time did not include minutes spent treating any other patients simultaneously or on activities that did not directly contribute to the patient's treatment. The services I provided to this patient were to treat and/or prevent clinically significant deterioration due to dizziness associated with acute renal failure and hyperkalemia I provided critical care services requiring my management, as noted below: Chart data review, documentation time, medication orders and management, vital sign assessments/reviewing monitor data, ordering and reviewing lab tests, ordering and interpreting/reviewing x-rays and diagnostic studies, care of the patient and discussion of the patient with the admitting physicians Physician Communication Physician Communication Case discussed with Dr. Jiang, nephrology, who recommended the sodium bicarbonate drip. He will be seeing the patient in consultation. Case then discussed with Dr. Ellison, building maintenance repairer, who requested that I consult cardiology as well. Case then discussed with Dr. Vasquez, adjunct faculty for medical terminology, who asked that I send him the EKGs. He will call back if he has any further recommendations. Diagnosis Primary Impression: Hyperkalemia Additional Impressions: Acute renal failure Qualified Codes: N17.9 - Acute kidney failure, unspecified Renal tubular acidosis Elevated troponin Admitting Information Admitting Physician Requests: Admit Condition: Stacie Goodrich MD Jan 10, 2017 13:54
[2017-01-10] MEDS ORDERED: ACETAMINOPHEN 325 MG TAB PO ONE (14:00)
--- NOTE | 2017-01-10 14:45 | RADRPT ---
EXAM DATE/TIME: 01/10/2017 13:32 [facility] COMPARISON: No previous studies available for comparison. INDICATIONS : Tripped and fell today RADIATION DOSE: 49.99 CTDIvol (mGy) MEDICAL HISTORY : Cerebrovascular disease. Hypertension. Diabetes mellitus type 2. SURGICAL HISTORY : None. ENCOUNTER: Initial ACUITY: 1 day PAIN SCALE: 0/10 LOCATION: cranial TECHNIQUE: Multiple contiguous axial images were obtained of the head. Using automated exposure control and adj ustment of the mA and/or kV according to patient size, radiation dose was kept as low as reasonably a chievable to obtain optimal diagnostic quality images. DICOM format image data is available electro nically for review and comparison. FINDINGS: CEREBRUM: An old lacunar infarction involving the right basal ganglia. The ventricles are normal for age. No e vidence of midline shift, mass lesion, hemorrhage or acute infarction. No extra-axial fluid collecti ons are seen. POSTERIOR FOSSA: The cerebellum and brainstem are intact. The 4th ventricle is midline. The cerebellopontine angle i s unremarkable. EXTRACRANIAL: The visualized portion of the orbits is intact. SKULL: The calvaria is intact. No evidence of skull fracture. CONCLUSION: No acute disease. Jermaine Malone Jr., MD on January 10, 2017 at 14:42 Board Certified Radiologist. This report was verified electronically.
[2017-01-10 15:44] LABS: BICARBONATE 10.7 MEQ/L (21.0-32.0)
[2017-01-10 15:45] LABS: POTASSIUM 6.5 MEQ/L (3.5-5.1)
[2017-01-10] MEDS ORDERED: DEXTROSE 50% IN WATER 50 ML SYRINGE IV PUSH ONE (16:00)
[2017-01-10] MEDS ORDERED: CALCIUM GLUCONATE 10% 1 GM/10 ML VIAL IV PUSH ONE (16:00)
[2017-01-10] MEDS: SODIUM POLYSTYRENE SULFONATE SUSP 15 GM/60 ML CUP PO ONE ×2 (16:00→17:30)
[2017-01-10] MEDS ORDERED: INSULIN HUMAN REGULAR 1,000 UNITS/10 ML VIAL IV PUSH ONE (16:00)
[2017-01-10] MEDS ORDERED: SODIUM CHLOR 0.9% 1000 ML INJ 1,000 ML IV ONE ×5 (16:15→17:00)
[2017-01-10] MEDS: SODIUM BICARBONATE IV SCH ×2 (16:15→17:05)
[2017-01-10] MEDS: SODIUM CHLOR 0.45% IV SCH (16:15)
[2017-01-10 16:16] LABS: CALCIUM-PROTEIN CORRECTED 7.5 MG/DL (8.5-10.1)
[2017-01-10] MEDS ORDERED: SODIUM BICARBONATE 8.4% INJ 50 MEQ/50 ML SYR ONE ×2 (16:23→17:23)
--- NOTE | 2017-01-10 16:45 | EKG ---
Date Performed: 01/10/2017 Time Performed: 13:23:00 PTAGE: 56 years EKG: ATRIAL FLUTTER/TACHYCARDIA ST DEVIATION AND MARKED T-WAVE ABNORMALITY, CONSIDER ANTEROLATER AL ISCHEMIA ABNORMAL ECG PREVIOUS TRACING : 09/04/2016 07.47 Compared to previous tracing Pt now has new aflutter DOCTOR: Rory Schwartz Interpretating Date/Time 01/10/2017 16:44:31
[2017-01-10] MEDS: ASPIRIN EC 81 MG TABEC PO SCH (17:00)
[2017-01-10] MEDS ORDERED: ALBUTEROL SULFATE 90 MCG/ACT HFA 8 GM INHALER INH PRN (17:00)
[2017-01-10] MEDS ORDERED: HEPARIN-D5W 25,000 U/250 ML 250 ML IV PRN (17:00)
[2017-01-10] MEDS ORDERED: NITROGLYCERIN 0.4 MG SL 25 TABS/BTL SL PRN ×2 (17:00→18:00)
--- NOTE | 2017-01-10 17:00 | HHI.HP ---
[facility] Service Critical Care Medicine Primary Care Physician [place] Frey MD Admission Diagnosis Diagnosis: (1) Acute on chronic kidney failure Diagnosis: Principal (2) Combined metabolic and respiratory acidosis Diagnosis: Principal (3) Acute metabolic encephalopathy Diagnosis: Principal (4) NSTEMI (non-ST elevated myocardial infarction) Diagnosis: Principal (5) Hyperkalemia Diagnosis: Principal (6) Metabolic acidemia Diagnosis: Principal (7) History of CVA (cerebrovascular accident) Diagnosis: Secondary (8) Diabetes Diagnosis: Secondary (9) HTN (hypertension) Diagnosis: Principal Chief Complaint: Severe dehydration Acute on chronic kidney failure Travel History International Travel<30 Days: No Contact w/Intl Traveler <30 Da: No Traveled to Known Affected Are: No History of Present Illness Patient is a very poor historian Is a 56-year-old male with past medical history significant for chronic kidney disease baseline creatinine 1.8-2, type 2 diabetes, history of CVA with residual left hemiparesis, history of coronary artery disease, hypertension, atrial fibrillation, who presented to the emergency department with generalized weakness and dizziness going on for 1 week. He lives in a senior living and walks with a cane due to previous stroke and hemiparesis. He states that he had at least a couple falls due to weakness. He admits to not drinking enough water and for the last 2 days was probably having diarrhea as well. Denies abdominal pain nausea or vomiting. ER evaluation showed severe acute on chronic kidney failure, hyperkalemia and severe metabolic acidosis. Patient's potassium was 6.5 bicarbonate was 10, BUN 19 and creatinine of 10. Troponin was 2.2. Patient received calcium, IV insulin followed by D50, IV bicarbonate for hyperkalemia I evaluated the patient in the ED. He is tachycardic in atrial flutter and EKG shows significant left anterolateral ischemic changes. Patient is lethargic but wakes up easily and communicates. A stat ABG shows a pH of 7.12 PCO2 of 30 PO2 of 107 base excess of -18. I have requested 2 A of bicarbonate stat, and increased bicarbonate infusion 150 ML per hour. Patient will need emergency dialysis for severe acidemia and hyperkalemia. I have discussed with Dr. Jiang. Willl place [facility] when patient gets to the ICU Past Family Social History Allergies: Coded Allergies: No Known Allergies (Unverified , 01/07/17) Past Medical History Chronic kidney disease Type 2 diabetes Hypertension Dyslipidemia Previous stroke, with residual L weakness Atrial fibrillation/flutter CAD History of PUD Past Surgical History Throat surgery Reported Medications Tylenol (Acetaminophen) 325 Mg Tab 650 Mg PO Q6H PRN Lisinopril 5 Mg Tab 5 Mg PO DAILY Atorvastatin (Atorvastatin Calcium) 80 Mg Tab 80 Mg PO HS Gabapentin 300 Mg Cap 300 Mg PO BID Glimepiride 4 Mg Tab 4 Mg PO DAILY Coreg (Carvedilol) 12.5 Mg Tab 12.5 Mg PO Q12HR 30 Days Proair Hfa 8.5 GM Inh (Albuterol Sulfate) 90 Mcg/Act Aer 2 Puff INH Q4-6H PRN Nitroglycerin SL (Nitroglycerin) 0.4 Mg Subl 0.4 Mg SL PRN Loperamide (Loperamide HCl) 2 Mg Cap 2 Mg PO DIRECTED PRN Januvia (Sitagliptin Phosphate) 25 Mg Tab 50 Mg PO DAILY Active Ordered Medications Reviewed Family History Very poor historian but states that mother had multiple medical problems including diabetes and kidney disease Social History Quit smoking 2 years ago Quit drinking 5 years ago Physical Exam Vital Signs Vital Signs Date Time Temp Pulse Resp B/P (MAP) Pulse Ox O2 Delivery O2 Flow Rate FiO2 01/10/17 16:36 110 24 128/79 (95) 95 Room Air 01/10/17 12:48 107 16 97 Room Air 01/10/17 12:40 97.5 100 16 98/68 (78) 100 Physical Exam GENERAL: Patient is somnolent and lethargic but wakes up and communicates with slurred speech SKIN: Severely dehydrated skin is dry HEAD: Normocephalic. Atraumatic. EYES: Pupils equal and round. No scleral icterus. ENT: No nasal bleeding or discharge. Mucous membranes Very dry NECK: Trachea midline. CARDIOVASCULAR: Heart rate is irregular, tachycardic. Telemetry shows atrial flutter with variable block RESPIRATORY: No accessory muscle use. Clear to auscultation. Breath sounds equal bilaterally. GASTROINTESTINAL: Abdomen soft. Nontender. MUSCULOSKELETAL: No obvious deformities. NEUROLOGICAL: Somnolent and lethargic but wakes up easily protecting airway. Patient has obvious left hemiparesis with 1 out of 5 strength on the left upper and lower extremity Laboratory Laboratory Tests Test 01/10/17 13:20 01/10/17 14:40 White Blood Count 5.6 Red Blood Count 3.48 Hemoglobin 10.2 Hematocrit 32.1 Mean Corpuscular Volume 92.3 Mean Corpuscular Hemoglobin 29.3 Mean Corpuscular Hemoglobin Concent 31.8 Red Cell Distribution Width 15.0 Platelet Count 135 Mean Platelet Volume 9.0 Neutrophils (%) (Auto) 65.6 Lymphocytes (%) (Auto) 19.3 Monocytes (%) (Auto) 13.1 Eosinophils (%) (Auto) 1.5 Basophils (%) (Auto) 0.5 Neutrophils # (Auto) 3.7 Lymphocytes # (Auto) 1.1 Monocytes # (Auto) 0.7 Eosinophils # (Auto) 0.1 Basophils # (Auto) 0.0 CBC Comment DIFF FINAL Differential Comment Blood Urea Nitrogen 99 Creatinine 10.14 Random Glucose 69 Total Protein 6.6 Calcium Level 7.2 Sodium Level 141 Potassium Level 6.5 Chloride Level 121 Carbon Dioxide Level 10.7 Anion Gap 9 Estimat Glomerular Filtration Rate 6 Protein Corrected Calcium 7.5 Troponin I 2.22 Result Diagram: 01/10/17 1320 01/10/17 1440 Caprini VTE Risk Assessment Caprini VTE Risk Assessment: Mod/High Risk (score >= 2) Caprini Risk Assessment Model Point Value = 1 Point Value = 2 Point Value = 3 Point Value = 5 Age 41-60 Minor surgery BMI > 25 kg/m2 Swollen legs Varicose veins or History of unexplained or recurrent spontaneous Oral contraceptives or hormone replacement Sepsis (< 1 month) Serious lung disease, including pneumonia (< 1 month) Abnormal pulmonary function Acute myocardial infarction Congestive heart failure (< 1 month) History of inflammatory bowel disease Medical patient at bed rest Age 61-74 Arthroscopic surgery Major open surgery (> 45 min) Laparoscopic surgery (> 45 min) Malignancy Confined to bed (> 72 hours) Immobilizing plaster cast Central venous access Age >= 75 History of VTE Family history of VTE Factor V Leiden Prothrombin [id number] Lupus anticoagulant Anticardiolipin antibodies Elevated serum homocysteine Heparin-induced thrombocytopenia Other congenital or acquired thrombophilia Stroke (< 1 month) Elective arthroplasty Hip, pelvis, or leg fracture Acute spinal cord injury (< 1 month) Prophylaxis Regimen Total Risk Factor Score Risk Level Prophylaxis Regimen 0-1 Low Early ambulation 2 Moderate Order ONE of the following: *Sequential Compression Device (SCD) *Heparin 5000 units SQ BID 3-4 Higher Order ONE of the following medications: *Heparin 5000 units SQ TID *Enoxaparin/Lovenox 40 mg SQ daily (WT < 150 kg, CrCl > 30 mL/min) *Enoxaparin/Lovenox 30 mg SQ daily (WT < 150 kg, CrCl > 10-29 mL/min) *Enoxaparin/Lovenox 30 mg SQ BID (WT < 150 kg, CrCl > 30 mL/min) AND/OR *Sequential Compression Device (SCD) 5 or more Highest Order ONE of the following medications: *Heparin 5000 units SQ TID (Preferred with Epidurals) *Enoxaparin/Lovenox 40 mg SQ daily (WT < 150 kg, CrCl > 30 mL/min) *Enoxaparin/Lovenox 30 mg SQ daily (WT < 150 kg, CrCl > 10-29 mL/min) *Enoxaparin/Lovenox 30 mg SQ BID (WT < 150 kg, CrCl > 30 mL/min) AND *Sequential Compression Device (SCD) Assessment and Plan Assessment and Plan NEURO: Acute metabolic encephalopathy History of previous CVA with left hemiparesis - Encephalopathy secondary to metabolic process - Minimize all sedation RESP: Probable COPD Severe combined metabolic and respiratory acidosis Past Tobacco abuse - Nasal cannula oxygen - DuoNeb every 6 hours and when necessary - Patient is protecting airway and at this time does not need intubation - BiPAP PRN CV: Atrial flutter with rapid ventricular response NSTEMI History of coronary artery disease - Receiving total 4.5 L normal saline boluses, then bicarb infusion at 150 ml per hour - Start ASA and IV Heparin, Cardiology consult. Hold beta blockers due to hyperkalemia. NTG PRN - Check 2-D echo cycle troponin GI: - Keep NPO until medically stable - Continue PPI : Acute on kidney failure Hyperkalemia Severe metabolic acidosis - Discussed with Dr. Jiang. Place VasCath to initiate emergency HD for hyperkalemia acute renal failure and severe acidosis - Monitor renal function closely. Montelongo catheter. Renal US - Aggressive resuscitation with 4.5L crystalloids and bicarbonate infusion 150 ml per hour - Hyperkalemia treated in the ER with IV calcium, IV bicarbonate, insulin and D50 ID: - Monitor for infection, no indication for antibiotics at this time HEME: - Monitor CBC, CMP, coags ENDO: Type 2 diabetes Hyperglycemia Dyslipidemia - Sliding-scale insulin PROPH: - Bilateral lower extremity SCDs. Heparin 5000 units sq q12, PPI LINES: - Utilize peripheral IVs, Place VasCath once in [facility] 55 Problem Qualifiers (1) Diabetes: (2) HTN (hypertension): Qualified Codes: I10 - Essential (primary) hypertension Ephraim Ellison MD Jan 10, 2017 17:00
[2017-01-10] MEDS: WATER STERILE FOR IV SCH (17:05)
[2017-01-10 17:08] LABS: BLOOD GAS BASE EXCESS -17.9 mmol/L (-2-2); BLOOD GAS CARBOXYHEMOGLOBIN 0.6 % (0-4); BLOOD GAS HCO3 10 mmol/L (22-26); BLOOD GAS METHEMOGLOBIN 0.6 % (0-2); BLOOD GAS O2 HGB SATURATION 96 % (90-100); BLOOD GAS OXYGEN CONTENT 12.6 Vol % (12.0-20.0); BLOOD GAS PCO2 30 mmHg (38-42); BLOOD GAS PO2 107 mmHG (61-120); BLOOD GAS TOTAL HGB 9.2 G/DL (12.0-16.0); CRITICAL VALUE YES; DRAW SITE LT RADIAL; FIO2 21 %; NUMBER OF ARTERIAL PUNCTURES 1; OXYGEN DEVICE RA; STAT YES; TEMP CORR TO 98.6; ULNAR PULSE PRESENT
[2017-01-10] MEDS ORDERED: MAGNESIUM HYDROXIDE SUSP 30 ML CUP PO PRN (17:15)
[2017-01-10] MEDS ORDERED: MISCELLANEOUS NURSING INFORMATION XX SCH (17:15)
[2017-01-10] MEDS ORDERED: CHLORHEXIDINE GLUCONATE 2 % 1 PACK (2 CLOTHS) TOP PRN (17:15)
[2017-01-10] MEDS ORDERED: LACTULOSE SYRUP 20 GM/30 ML CUP PO PRN (17:15)
[2017-01-10] MEDS ORDERED: SODIUM CHLORIDE 0.9% FLUSH 10 ML FLUSH IV FLUSH PRN ×2 (17:15→18:00)
[2017-01-10] MEDS ORDERED: SENNOSIDES 8.6 MG TAB PO PRN (17:15)
[2017-01-10] MEDS ORDERED: BISACODYL 10 MG SUPP RECTAL PRN (17:15)
[2017-01-10] MEDS ORDERED: SODIUM BICARBONATE 8.4% INJ 0 ML ONE (17:23)
--- NOTE | 2017-01-10 17:23 | RADRPT ---
EXAM DATE/TIME: 01/10/2017 17:01 [facility] COMPARISON: US KIDNEY/RENAL/BLADDER, September 01, 2016, 21:01. INDICATIONS : Increased BUN/Creatnine. MEDICAL HISTORY : Stroke. Hypertension. Myocardial infarction. Missing teeth. Numbness. Chest pain. Diabetes. SURGICAL HISTORY : Throat surgery. Arm surgery. ENCOUNTER: Subsequent ACUITY: 1 day PAIN SCORE: 5/10 LOCATION: Bilateral flank MEASUREMENTS: RIGHT KIDNEY: 10.7 x 4.7 x 5.7 cm LEFT KIDNEY: 11.1 x 5.3 x 6.3 cm FINDINGS: RIGHT KIDNEY: Renal cortex is normal in thickness and echotexture. No hydronephrosis, stone, or mass. LEFT KIDNEY: Renal cortex is normal in thickness and echotexture. No hydronephrosis, stone, or mass. BLADDER: Within normal limits given the degree of distension. CONCLUSION: Normal examination. Jermaine Malone Jr., MD on January 10, 2017 at 17:19 Board Certified Radiologist. This report was verified electronically.
[2017-01-10 17:45] LABS: MEAN CELL VOLUME 92.5 FL (80.0-100.0); MEAN CORPUSCULAR HEMOGLOBIN 29.4 PG (27.0-34.0); MEAN CORPUSCULAR HGB CONC 31.8 % (32.0-36.0); PLATELET COUNT 87 TH/MM3 (150-450); RED BLOOD COUNT 2.19 MIL/MM3 (4.50-5.90); RED CELL DISTRIBUTION WIDTH 14.7 % (11.6-17.2); WHITE BLOOD COUNT 3.6 TH/MM3 (4.0-11.0)
[2017-01-10] MEDS ORDERED: SODIUM CHLOR 0.9% 1000 ML INJ 1,000 ML IV PRN (17:47)
[2017-01-10] MEDS ORDERED: SODIUM CHLOR 0.9% 1000 ML INJ 1,000 ML OTHER PRN ×2 (17:47)
[2017-01-10 17:53] LABS: REVIEW FLAG FINAL
[2017-01-10 17:56] LABS: HEMATOCRIT 20.2 % (39.0-51.0)
[2017-01-10 17:59] LABS: APTT (PATIENT) 35.5 SEC (24.3-30.1); INTERNATIONAL NORMALIZED RATIO 1.3 RATIO
[2017-01-10] MEDS: INSULIN ASPART SUPPLEMENTAL SCALE SQ SCH ×2 (18:00→21:00)
[2017-01-10] MEDS ORDERED: HEPARIN SODIUM - IV 10,000 UNITS/10 ML VIAL PRN (18:00)
[2017-01-10] MEDS ORDERED: GELATIN 12 MM/7 MM FOAM TOP PRN (18:00)
[2017-01-10] MEDS ORDERED: GENTAMICIN SULFATE (DIALYSIS USE ONLY) 20 MG/2 ML VIAL OTHER PRN (18:00)
[2017-01-10] MEDS ORDERED: MANNITOL 12.5 GM/50 ML VIAL IV PRN (18:00)
[2017-01-10] MEDS ORDERED: ALBUMIN 25% INJ 100 ML IV PRN (18:00)
[2017-01-10] MEDS ORDERED: HEPARIN SODIUM - IV 10,000 UNITS/10 ML VIAL IV FLUSH PRN (18:00)
[2017-01-10] MEDS: DEXTROSE 50% IN WATER 50 ML VIAL(D50) IV PUSH PRN ×2 (18:05→20:00)
--- NOTE | 2017-01-10 18:32 | MB ---
cc: NILS PIERRE MD DATE OF CONSULTATION 01/10/17 REASON FOR CONSULTATION Elevated BUN and creatinine and hyperkalemia. HISTORY OF PRESENT ILLNESS This is a 56-year-old male with past medical history of chronic kidney disease, diabetes mellitus, history of cerebrovascular accident with hemiparesis, ischemic heart disease, hypertension, atrial fibrillation who came to the hospital with generalized weakness and dizziness. I was called to see the patient because of very high BUN and creatinine, metabolic acidosis and hyperkalemia. The patient has known history of chronic kidney disease and his baseline creatinine seems to me in the range of 1.6 to 2.2. The patient now came with a creatinine of 10. The patient was here in August and at that time he was seen by Dr. Ruiz and it seems like the patient has no follow up. The patient is not a very good historian. Most of the history was taken from the patient's chart according to which the patient fell down a couple of times due to generalized weakness and not drinking enough fluid for the last [id number] days and he has been feeling dizzy for last one week. The patient has no abdominal pain. He has mild nausea, occasional vomiting and currently he just got a Montelongo catheter. The patient was quite dehydrated when he came in here and he was tachycardiac. PAST MEDICAL HISTORY 1. Hypertension, 2. Diabetes mellitus, 3. Hyperlipidemia, 4. Chronic kidney disease, 5. Atrial fibrillation, 6. Ischemic heart disease, 7. Peripheral vascular disease, 8. Peptic ulcer disease. 9. Cerebrovascular accident. PAST SURGICAL HISTORY History of throat surgery. REVIEW OF SYSTEMS Limited since the patient is not answering some questions, but he denies any headache, dizziness, no chest pain. No shortness of breath. He has generalized weakness and abdominal pain. There is history of nausea with occasional vomiting. There is no known history of diarrhea. SOCIAL HISTORY The patient lives in assisted facility and he has history of smoking. Stopped two years ago. Also has history of alcoholism. Stopped five years ago. FAMILY HISTORY He has family history of diabetes and renal disease. ALLERGIES NO KNOWN DRUG ALLERGIES. MEDICATIONS Currently on following medications 1. IV fluids getting with sodium bicarbonate. 2. Protonix 40 mg once a day. 3. Aspirin 81 mg daily, 4. Afia-Colace 1 tablet b.i.d. 5. Lipitor 80 mg q.h.s. 6. Insulin aspart sliding scale. REVIEW OF SYSTEMS The patient denies any headache, dizziness. PHYSICAL EXAMINATION GENERAL: The patient is awake, alert. VITAL SIGNS: His last blood pressure is 112/58, temperature 97.5, oxygen saturation 98% on room air and the blood pressure lowest recorded was ____/53 on presentation. at that time his pulse was 100. HEENT: Pupils are mid constricted. Nonicteric sclerae, conjunctivae pale. NECK: Supple. JVD is not elevated. LUNGS: The patient has bilateral good air entry with occasional wheezing. HEART: S1, S2, regular rhythm. ABDOMEN: Soft, lax, distended. There is no tenderness. He has mild periumbilical hernia which is reducible. EXTREMITIES: He has mild edema LABORATORY DATA WBC count is 5.6, hemoglobin 10.2, platelet of 135, neutrophils 65.6%. Sodium 141, potassium 6.5, chloride 121, bicarb 10.7, BUN 99, creatinine 10.1, glucose 69, calcium 7.2, corrected calcium 7.5. Troponin I is 2.22, total protein 6.6, INR is 1.0. Urinalysis done during this admission showing protein 30. IMAGING STUDIES CT scan of the brain was done which shows that he has no acute disease. Ultrasound of the kidneys was done which showed both kidneys are normal in size. The bladder within normal limits and distended. ASSESSMENT/PLAN 1. Chronic kidney disease, acute kidney injury 2. Hyperkalemia. 3. Metabolic acidosis 4. Dehydration. 5. Hypertension 6. Diabetes mellitus The patient has a very high BUN and creatinine and potassium is also high. He has metabolic acidosis. The pH is low 7.12. Discussed with Dr. Ellison and the metal bed assembler and he will put a vas cath. We will start the patient on dialysis mainly because of hyperkalemia and acidosis. The etiology of chronic kidney disease is possibly related to hypertension and/or diabetes mellitus and the acute worsening is all related to dehydration or ATN. Continue the hydration and follow the BUN and creatinine. Thank you for the consultation and I will follow the patient over the weekend. Dr. Ruiz will follow the patient from Thursday. since he has seen the patient in recent past. MD KELVIN Figueredo/ /5:43 PM /5:56 PM
--- NOTE | 2017-01-10 20:58 | RADRPT ---
EXAM DATE/TIME: 01/10/2017 20:19 [facility] COMPARISON: CHEST SINGLE AP, September 01, 2016, 4:57. INDICATIONS : Central line placement. MEDICAL HISTORY : Stroke. Hypertension. Myocardial infarction. Missing teeth. Numbness. Chest pain.Diabetes. SURGICAL HISTORY : Throat surgery. Arm surgery. ENCOUNTER: Initial ACUITY: 1 day PAIN SCORE: 0/10 LOCATION: Bilateral chest FINDINGS: No central line has been placed with tip in superior vena cava. No pneumothorax. Mild basilar atelect asis in the lungs. Cardiomegaly. CONCLUSION: 1. There is now a left central line in superior vena cava without pneumothorax. Dayday Post MD on January 10, 2017 at 20:56 Board Certified Radiologist. This report was verified electronically.
[2017-01-10] MEDS: ATORVASTATIN 80 MG TAB PO SCH ×2 (21:00→23:19)
[2017-01-10 21:04] LABS: CALCIUM-PROTEIN CORRECTED 7.7 MG/DL (8.5-10.1); POTASSIUM 5.2 MEQ/L (3.5-5.1); TOTAL BILIRUBIN ADULT 0.6 MG/DL (0.2-1.0)
--- NOTE | 2017-01-10 21:31 | PD.PROCEDR ---
Procedure Note Procedure Hemodialysis catheter placement A time-out was completed verifying correct patient, procedure, site, positioning , and special equipment if applicable. The patient was placed in a dependent position appropriate for central line placement based on the vein to be cannulated. The patients left neck was prepped and draped in sterile fashion. 1 % Lidocaine was used to anesthetize the surrounding skin area. A double lumen hemodialysis catheter was introduced into the the internal jugular vein using the Seldinger technique and under ultrasound guidance. The catheter was threaded smoothly over the guide wire and appropriate blood return was obtained. Each lumen of the catheter was evacuated of air and flushed with sterile saline. The catheter was then sutured in place to the skin and a sterile dressing applied. Perfusion to the extremity distal to the point of catheter insertion was checked and found to be adequate. Estimated Blood Loss: 1ml The patient tolerated the procedure well and there were no complications. Jose L Montes De Oca MD Jan 10, 2017 21:31
[2017-01-10] MEDS ORDERED: GLUCAGON 1 MG/ML VIAL OTHER PRN (22:30)
[2017-01-10] MEDS: DOCUSATE SODIUM 50 MG/SENNA 8.6 MG TAB PO SCH (23:18)
[2017-01-10] MEDS: SODIUM CHLORIDE 0.9% FLUSH 10 ML FLUSH IV FLUSH SCH (23:19)
[2017-01-11] VITALS (14 sets, daily range): BP systolic 119–173; BP diastolic 86–99; PULSE 87–128; RESP 17–36; TEMP 98–99; O2SAT 83–100
[2017-01-11] MEDS: DEXMEDETOMIDINE INJ 200 MCG in SODIUM CHLORIDE 0.9% INJ 50 ML IV PRN ×6 (00:29→23:47)
[2017-01-11] MEDS: INSULIN ASPART SUPPLEMENTAL SCALE SQ SCH ×6 (01:00→21:00)
[2017-01-11] MEDS: SODIUM BICARBONATE IV SCH ×5 (01:04→13:02)
[2017-01-11] MEDS: WATER STERILE FOR IV SCH ×3 (01:04→13:01)
[2017-01-11 02:35] LABS: APTT (PATIENT) 25.2 SEC (24.3-30.1)
[2017-01-11] MEDS: SODIUM CHLOR 0.45% IV SCH ×2 (04:15→13:02)
[2017-01-11 04:32] LABS: AUTOMATED NEUTROPHIL # 6.8 TH/MM3 (1.8-7.7); BASOPHIL % 0.3 % (0.0-2.0); EOSINOPHIL # 0.1 TH/MM3 (0-0.4); HEMATOCRIT 34.4 % (39.0-51.0); HEMO FLAGS DIFF FINAL; MEAN CELL VOLUME 88.6 FL (80.0-100.0); MEAN CORPUSCULAR HEMOGLOBIN 29.4 PG (27.0-34.0); MEAN CORPUSCULAR HGB CONC 33.2 % (32.0-36.0); MONO % 11.2 % (0.0-8.0); NEUT % 76.5 % (16.0-70.0); PLATELET COUNT 109 TH/MM3 (150-450); RED BLOOD COUNT 3.88 MIL/MM3 (4.50-5.90); RED CELL DISTRIBUTION WIDTH 14.5 % (11.6-17.2); WHITE BLOOD COUNT 8.8 TH/MM3 (4.0-11.0)
[2017-01-11 04:40] LABS: BICARBONATE 23.8 MEQ/L (21.0-32.0); MAGNESIUM 1.6 MG/DL (1.5-2.5); POTASSIUM 3.7 MEQ/L (3.5-5.1); TOTAL BILIRUBIN ADULT 1.4 MG/DL (0.2-1.0)
[2017-01-11] MEDS: CHLORHEXIDINE GLUCONATE 2 % 1 PACK (2 CLOTHS) TOP SCH (06:00)
[2017-01-11] MEDS: ASPIRIN EC 81 MG TABEC PO SCH (08:22)
[2017-01-11] MEDS: SODIUM CHLORIDE 0.9% FLUSH 10 ML FLUSH IV FLUSH SCH ×2 (08:22→19:43)
[2017-01-11] MEDS: DOCUSATE SODIUM 50 MG/SENNA 8.6 MG TAB PO SCH ×2 (08:23→21:00)
[2017-01-11] MEDS ORDERED: PANTOPRAZOLE SOD 40 MG DELAYED RELEASE TAB PO SCH (09:00)
[2017-01-11 09:36] LABS: APTT (PATIENT) 52.2 SEC (24.3-30.1)
--- NOTE | 2017-01-11 11:44 | MB ---
cc: VINICIUS SALAS MD DATE OF CONSULTATION: 01/11/2017 REASON FOR CONSULTATION: Elevated troponin / atrial flutter. HISTORY OF PRESENT ILLNESS The patient is a 56 year-old gentleman who is currently sedated and in restraints, as apparently he has baseline cognitive difficulties and is frequently agitated. He has required sedation in the ICU so he can get his emergent hemodialysis. I have been consulted due to an abnormal troponin as well as atrial flutter. All history is obtained from the chart. PAST MEDICAL HISTORY Chronic kidney disease. CVA. Hypertension. Atrial fibrillation / flutter. Chart history of coronary disease. Nonischemic nuclear stress test August 2016. CURRENT MEDICATIONS 1. Protonix 40 mg daily. 2. Aspirin 81 milligrams daily. 3. Insulin. 4. Bicarb. PHYSICAL EXAMINATION Afebrile, pulse 114, respiratory rate 31, BP 119/95, sating 100 on 2 liters. General: Sedated -[place] gentleman. Neck: No JVD. Lungs: Clear to auscultation bilaterally. Cardiovascular: Mildly rapid and irregularly irregular. No murmurs appreciated. Abdomen: Benign. Extremities: No edema. LABORATORY DATA Sodium 143, potassium 3.7, chloride 112, bicarb 23.8, BUN 69, creatinine 6.89 (baseline from August was 1.67, troponin is 2.22, 1.97, 2.31, calcium is 7.0. White count 8.8, hematocrit 34.4 up from 20.2. IMAGING STUDIES: Head CT shows no acute disease. Chest x-ray showed no acute disease. Renal ultrasound was normal. EKG shows atrial flutter with diffuse T-wave changes. IMPRESSION Elevated troponin. The patient has elevated troponin in the setting of multiple metabolic abnormalities including acute renal failure. He had a nonischemic nuclear stress test only a few months ago. An echocardiogram to look for any change in LV function is pending. Certainly he is not a heart catheterization patient at the moment due to his acute kidney injury as well as his significantly altered mental status. Should his mental status improve, perhaps cardiac catheterization could be considered at some point in time although given his acute kidney injury, this may not be prudent. The clark will be seeing how much renal function comes back with medical management as well as if he has any significant mental status improvement, so we can discuss the case with him. For the moment I would continue supportive care. I can add a little bit of rate control medication to help his atrial flutter but I would not consider him an invasive candidate at this time, particularly with his metabolic issues above as well as his new transfusion dependent anemia. Further recommendations will be based on his clinical course. Thank you again for the opportunity to participate in this patient's care. MD INDIA Bo/KEN /10:57 AM /11:32 AM
--- NOTE | 2017-01-11 13:36 | EKG ---
Date Performed: 01/10/2017 Time Performed: 16:07:56 PTAGE: 56 years EKG: ATRIAL FLUTTER/TACHYCARDIA ST DEVIATION AND MARKED T-WAVE ABNORMALITY, CONSIDER ANTEROLATER AL ISCHEMIA ABNORMAL ECG PREVIOUS TRACING : 01/10/2017 13.23 Compared to prior tracing no significant change DOCTOR: Rory Schwartz Interpretating Date/Time 01/11/2017 13:35:29
--- NOTE | 2017-01-11 15:21 | HHI.NPPN ---
Subjective History of Present Illness 56-year-old male with past medical history of chronic kidney disease, diabetes mellitus, history of cerebrovascular accident with hemiparesis, ischemic heart disease, hypertension, atrial fibrillation who came to the hospital with generalized weakness and dizziness. I was called to see the patient because of very high BUN and creatinine, metabolic acidosis and hyperkalemia. The patient has known history of chronic kidney disease and his baseline creatinine seems to me in the range of 1.6 to 2.2. Additional Remarks Patient is alert, not fully oriented, occ. has agitation, not in distress. Review of Systems General Constitutional: Fatigue Cardiovascular Cardiac: RODRÍGUEZ Objective Data Data 01/11/17 01/12/17 19:00 07:00 Intake Total 512 ml Balance 512 ml Intake IV Total 512 ml Vital Signs Date Time Temp Pulse Resp B/P (MAP) Pulse Ox O2 Delivery O2 Flow Rate FiO2 01/11/17 12:00 105 01/11/17 12:00 98.0 105 17 155/97 (116) 100 01/11/17 10:00 114 01/11/17 09:25 98 Nasal Cannula 1.00 01/11/17 08:00 98.1 118 31 119/95 (103) 100 01/11/17 08:00 118 01/11/17 06:00 118 01/11/17 04:00 98.2 109 18 126/86 (99) 100 01/11/17 04:00 109 01/11/17 02:00 104 01/11/17 00:00 121 01/11/17 00:00 98.6 121 36 163/99 (120) 83 01/10/17 22:51 100 2.00 01/10/17 22:24 98.4 153 18 110/75 100 01/10/17 22:00 150 01/10/17 20:00 133 01/10/17 20:00 98.3 133 24 106/56 (73) 100 01/10/17 18:01 01/10/17 18:00 97.6 143 18 113/72 (86) 97 01/10/17 17:00 103 16 112/58 (76) 98 Room Air 01/10/17 16:36 110 24 128/79 (95) 95 Room Air -: 01/11/17 0340 01/11/17 0340 Physical Exam General Appearance: No Acute Distress, Comfortable, Anxious Throat Throat Exam: Oral Mucosa [place] & Moist Pulmonary Resp Exam: Breath Sounds Equal, No Distress, Rhonchi, Decreased Bases, Diminished Breath Sounds Cardiology CV Exam: Regular, Normal Sinus Rhythm Gastrointestinal/Abdomen GI Exam: Soft, Non-Tender, Bowel Sounds Present Extremeties Extremities Exam: Trace Edema Neurologic Neuro Exam: Alert, Awake Assessment/Plan Assessment Summary: ABNER/Acute Renal Failure, CKD Stage III Electrolyte Assessment: Hyperkalemia, Hypocalcemia, Metabolic Acidosis Problem List: (1) History of CVA (cerebrovascular accident) ICD Codes: Z86.73 - Personal history of transient ischemic attack (TIA), and cerebral infarction without residual deficits (2) HTN (hypertension) ICD Codes: I10 - Essential (primary) hypertension Status: Acute (3) Diabetes ICD Codes: E11.9 - Type 2 diabetes mellitus without complications Status: Acute (4) Metabolic acidemia ICD Codes: E87.2 - Acidosis (5) Hyperkalemia ICD Codes: E87.5 - Hyperkalemia Status: Acute (6) Acute renal failure ICD Codes: N17.9 - Acute kidney failure, unspecified Status: Acute Plan Patient has chronic kidney disease and develop ABNER. Also has metabolic acidosis and Hyperkalemia. Patient has HD done yesterday. K is now better and acidosis improved. Calcium is low. Still has Encephalopathy. Urine out put is better. Has an element of ABNER, possibly ATN. No HD today, follow the urine out put and BMP. HD as needed. Dr. Ruiz will follow from AM. Problem Qualifiers (1) HTN (hypertension): Qualified Codes: I10 - Essential (primary) hypertension (2) Diabetes: (3) Acute renal failure: Qualified Codes: N17.9 - Acute kidney failure, unspecified Umair Jiang MD Jan 11, 2017 15:21
[2017-01-11] MEDS: METOPROLOL TARTRATE 5 MG/5 ML VIAL IV PUSH PRN (15:32)
--- NOTE | 2017-01-11 15:54 | ECHRPT ---
Indication: Persistent atrial fibrillation CONCLUSIONS The left ventricular systolic function is low normal with an estimated ejection fraction in the rang e of 50- 55%. Mild concentric left ventricular hypertrophy. Normal left ventricular size. Trace mitral valve regurgitation. There is mild tricuspid valve regurgitation. The estimated pulmonary arterial pressure is 47.2 mmHg. The left atrial size is mildly dilated. Study somewhat difficult due to tachycardia present throughout. BP: / HR: 78 Rhythm: Atrial fibrillation MEASUREMENTS (Male / Female) Normal Values Technical Quality:fair 2D ECHO LV Diastolic Diameter PLAX 3.4 cm 4.2 - 5.9 / 3.9 - 5.3 cm LV Systolic Diameter PLAX 2.7 cm IVS Diastolic Thickness 1.4 cm 0.6 - 1.0 / 0.6 - 0.9 cm LVPW Diastolic Thickness 1.5 cm 0.6 - 1.0 / 0.6 - 0.9 cm LV Relative Wall Thickness 0.9 LVOT Diameter 2.1 cm M-MODE Aortic Root Diameter MM 3.1 cm LA Systolic Diameter MM 4.7 cm LA Ao Ratio MM 1.5 AV Cusp Separation MM 2.4 cm DOPPLER AV Peak Velocity 113.0 cm/s AV Peak Gradient 5.1 mmHg LVOT Peak Velocity 89.8 cm/s LVOT Peak Gradient 3.2 mmHg AV Area Cont Eq pk 2.8 cm MR Peak Velocity 447.0 cm/s MR Peak Gradient 79.9 mmHg TR Peak Velocity 305.0 cm/s TR Peak Gradient 37.2 mmHg Right Atrial Pressure 10.0 mmHg Pulmonary Artery Systolic Pressu 47.2 mmHg Right Ventricular Systolic Press 47.2 mmHg PV Peak Velocity 85.5 cm/s PV Peak Gradient 2.9 mmHg FINDINGS LEFT VENTRICLE The left ventricular systolic function is low normal with an estimated ejection fraction in the rang e of 50- 55%. Mild concentric left ventricular hypertrophy. Normal left ventricular size. RIGHT VENTRICLE Normal right ventricular size and systolic function. LEFT ATRIUM The left atrial size is mildly dilated. RIGHT ATRIUM The right atrial size is normal. ATRIAL SEPTUM Normal atrial septal thickness without atrial level shunting by limited color doppler interrogation. AORTA The aortic root and proximal ascending aorta are normal in size on limited imaging. MITRAL VALVE Trace mitral valve regurgitation. AORTIC VALVE Trileaflet aortic valve. No aortic valve stenosis or regurgitation. TRICUSPID VALVE There is mild tricuspid valve regurgitation. The estimated pulmonary arterial pressure is 47.2 mmHg. PULMONARY VALVE No pulmonary valve regurgitation or stenosis. VESSELS The inferior vena cava is normal in size. PERICARDIUM No pericardial effusion. Chirag Vasquez MD (Electronically Signed) Final Date:11 January 2017 15:53
--- NOTE | 2017-01-11 17:17 | HHI.CCPN ---
Objective Vital Signs Date Time Temp Pulse Resp B/P (MAP) Pulse Ox O2 Delivery O2 Flow Rate FiO2 01/11/17 16:00 122 01/11/17 16:00 98.7 21 94 01/11/17 09:25 Nasal Cannula 1.00 Intake and Output 01/11/17 01/11/17 01/12/17 08:00 16:00 00:00 Intake Total 1761 ml 505 ml Output Total 1000 ml Balance 761 ml 505 ml Result Diagram: 01/11/17 0340 01/11/17 0340 Ephraim Ellison MD Jan 11, 2017 17:17
--- NOTE | 2017-01-11 17:19 | HHI.CCPN ---
Subjective Remarks/Hospital Course Is a 56-year-old male with past medical history significant for chronic kidney disease baseline creatinine 1.8-2, type 2 diabetes, history of CVA with residual left hemiparesis, history of coronary artery disease, hypertension, atrial fibrillation, who presented to the emergency department with generalized weakness and dizziness going on for 1 week. He lives in a alf and walks with a cane due to previous stroke and hemiparesis. He states that he had at least a couple falls due to weakness. He admits to not drinking enough water and for the last 2 days was probably having diarrhea as well. Denies abdominal pain nausea or vomiting. ER evaluation showed severe acute on chronic kidney failure, hyperkalemia and severe metabolic acidosis. Patient's potassium was 6.5 bicarbonate was 10, BUN 19 and creatinine of 10. Troponin was 2.2. Patient received calcium, IV insulin followed by D50, IV bicarbonate for hyperkalemia I evaluated the patient in the ED. He is tachycardic in atrial flutter and EKG shows significant left anterolateral ischemic changes. Patient is lethargic but wakes up easily and communicates. A stat ABG shows a pH of 7.12 PCO2 of 30 PO2 of 107 base excess of -18. I have requested 2 A of bicarbonate stat, and increased bicarbonate infusion 150 ML per hour. Patient will need emergency dialysis for severe acidemia and hyperkalemia. I have discussed with Dr. Jiang. Willl place [facility] when patient gets to the ICU 01/11: Started on HD yesterday, will get HD again today. required Precedex overnight for agitation. Transfused 2 U PRBC for Hb 6.4. Heparin DCD. hb 11.4 today. Creat 10.14, improved to 6.9. Making urine, 1L since admission Objective Vital Signs Date Time Temp Pulse Resp B/P (MAP) Pulse Ox O2 Delivery O2 Flow Rate FiO2 01/11/17 16:00 122 01/11/17 16:00 98.7 21 94 01/11/17 09:25 Nasal Cannula 1.00 Intake and Output 01/11/17 01/11/17 01/12/17 08:00 16:00 00:00 Intake Total 1761 ml 505 ml Output Total 1000 ml Balance 761 ml 505 ml Result Diagram: 01/11/17 0340 01/11/17 0340 Objective Remarks GENERAL: Patient is somnolent and lethargic on Precedex SKIN: Severely dehydrated, skin is dry HEAD: Normocephalic. Atraumatic. EYES: Pupils equal and round. No scleral icterus. ENT: No nasal bleeding or discharge. Mucous membranes Very dry NECK: Trachea midline. CARDIOVASCULAR: Heart rate is irregular, tachycardic. Telemetry shows atrial flutter with variable block RESPIRATORY: Clear to auscultation. Breath sounds equal bilaterally. GASTROINTESTINAL: Abdomen soft. Nontender. MUSCULOSKELETAL: No obvious deformities. NEUROLOGICAL: Somnolent and lethargic hard to wake up, following commands. Patient has obvious left hemiparesis with 1 out of 5 strength on the left upper and lower extremity Urinary Catheter: Yes Assessment to: Continue A/P Assessment and Plan NEURO: Acute metabolic encephalopathy Delirium History of previous CVA with left hemiparesis - Delirium due to acute illness. - Preceded gtt. Wean to DC as tolerated RESP: Probable COPD Severe combined metabolic and respiratory acidosis Past Tobacco abuse - Nasal cannula oxygen, protecting airway, check ABG repeat today - DuoNeb every 6 hours and when necessary CV: Atrial flutter with rapid ventricular response NSTEMI History of coronary artery disease - Received total 4.5 L normal saline boluses, then bicarb infusion at 150 ml per hour. DC bicarb - Metoprolol started by cardiology. Cardizem gtt for a flutter rate control - Continue ASA. DC IV Heparin due to severe anemia. NTG PRN - 2 D Echo normal EF. no RWMA. PASP 47 GI: - Keep NPO until medically stable - Continue PPI : Acute on kidney failure Hyperkalemia Severe metabolic acidosis - Discussed with Dr. Jiang. Placed VasCath and initiated emergency HD for hyperkalemia acute renal failure and severe acidosis on 01/10/17 - Repeat HD today. Monitor renal function closely. Montelongo catheter. Renal US - s/p Aggressive resuscitation with 4.5L crystalloids and bicarbonate infusion 150 ml per hour. Now bicarb off - Hyperkalemia treated in the ER with IV calcium, IV bicarbonate, insulin and D50 and later HD. K is normal now ID: - Monitor for infection, no indication for antibiotics at this time HEME: - Monitor CBC, CMP, coags ENDO: Type 2 diabetes Hyperglycemia Dyslipidemia - Sliding-scale insulin PROPH: - Bilateral lower extremity SCDs. Heparin IV DCd, protonix 40 mg IV q12 LINES: - Utilize peripheral IVs, s/p VasCath placement CCT 45 Ephraim Ellison MD Jan 11, 2017 17:18
[2017-01-11 17:43] LABS: BLOOD GAS BASE EXCESS -5.3 mmol/L (-2-2); BLOOD GAS CARBOXYHEMOGLOBIN 1.7 % (0-4); BLOOD GAS HCO3 19 mmol/L (22-26); BLOOD GAS METHEMOGLOBIN 1.2 % (0-2); BLOOD GAS O2 HGB SATURATION 94 % (90-100); BLOOD GAS OXYGEN CONTENT 16.4 Vol % (12.0-20.0); BLOOD GAS PCO2 34 mmHg (38-42); BLOOD GAS PO2 86 mmHg (61-120); BLOOD GAS TOTAL HGB 12.4 G/DL (12.0-16.0); CRITICAL VALUE NO; DRAW SITE LT RADIAL; LITER FLOW 1 L/M; NUMBER OF ARTERIAL PUNCTURES 1; OXYGEN DEVICE NASAL CANNULA; STAT NO; TEMP CORR TO 98.6; ULNAR PULSE PRESENT
[2017-01-11] MEDS: DILTIAZEM INJ 125 MG in SODIUM CHLORIDE 0.9% INJ 100 ML IV PRN (19:36)
[2017-01-11] MEDS: ATORVASTATIN 80 MG TAB PO SCH (21:00)
[2017-01-11] MEDS: METOPROLOL TARTRATE 25 MG TAB PO SCH (21:00)
[2017-01-12] VITALS (13 sets, daily range): BP systolic 132–171; BP diastolic 86–98; PULSE 78–82; RESP 17–28; TEMP 98.6–99.5; O2SAT 100
[2017-01-12] MEDS: INSULIN ASPART SUPPLEMENTAL SCALE SQ SCH ×6 (01:00→21:00)
[2017-01-12] MEDS: CHLORHEXIDINE GLUCONATE 2 % 1 PACK (2 CLOTHS) TOP SCH (04:00)
[2017-01-12] MEDS: DEXMEDETOMIDINE INJ 200 MCG in SODIUM CHLORIDE 0.9% INJ 50 ML IV PRN ×3 (05:02→14:53)
[2017-01-12] MEDS: DILTIAZEM INJ 125 MG in SODIUM CHLORIDE 0.9% INJ 100 ML IV PRN ×2 (06:23→19:31)
[2017-01-12 06:58] LABS: AUTOMATED NEUTROPHIL # 8.7 TH/MM3 (1.8-7.7); BASOPHIL % 0.3 % (0.0-2.0); EOSINOPHIL # 0.1 TH/MM3 (0-0.4); EOSINOPHIL % 0.6 % (0.0-4.0); HEMATOCRIT 38.7 % (39.0-51.0); HEMO FLAGS DIFF FINAL; LYMPH % 7.8 % (9.0-44.0); LYMPHOCYTE # 0.8 TH/MM3 (1.0-4.8); MEAN CELL VOLUME 87.8 FL (80.0-100.0); MEAN CORPUSCULAR HEMOGLOBIN 29.5 PG (27.0-34.0); MEAN CORPUSCULAR HGB CONC 33.6 % (32.0-36.0); MONO % 6.6 % (0.0-8.0); NEUT % 84.7 % (16.0-70.0); PLATELET COUNT 112 TH/MM3 (150-450); RED BLOOD COUNT 4.41 MIL/MM3 (4.50-5.90); WHITE BLOOD COUNT 10.3 TH/MM3 (4.0-11.0)
[2017-01-12 07:36] LABS: ALKALINE PHOSPHATASE 60 U/L (45-117); ALT (GPT) 23 U/L (12-78); ANION GAP 11 MEQ/L (5-15); AST (GOT) 23 U/L (15-37); BICARBONATE 22.7 MEQ/L (21.0-32.0); BLOOD UREA NITROGEN 69 MG/DL (7-18); CHLORIDE 110 MEQ/L (98-107); GLOMERULAR FILTRATION RATE 17 ML/MIN (>89); MAGNESIUM 1.4 MG/DL (1.5-2.5); SODIUM (NA) 144 MEQ/L (136-145); TOTAL BILIRUBIN ADULT 1.4 MG/DL (0.2-1.0)
[2017-01-12] MEDS: ASPIRIN EC 81 MG TABEC PO SCH ×2 (08:05→09:00)
[2017-01-12] MEDS: DOCUSATE SODIUM 50 MG/SENNA 8.6 MG TAB PO SCH ×3 (08:05→21:19)
[2017-01-12] MEDS: METOPROLOL TARTRATE 25 MG TAB PO SCH ×3 (08:05→21:19)
[2017-01-12] MEDS: SODIUM CHLORIDE 0.9% FLUSH 10 ML FLUSH IV FLUSH SCH ×2 (08:06→21:20)
--- NOTE | 2017-01-12 08:40 | PD.CARD.PN ---
Subjective Subjective Remarks Pt confused, but more responsive than yesterday, can't get a hx from him Objective Medications Current Medications Medications (Trade) Dose Ordered Sig/Mansi Route Start Time Stop Time Status Last Admin (Tylenol) 650 mg Q6H PRN PO 01/10/17 17:00 (Proair Hfa Inh) 2 puff Q6H PRN INH 01/10/17 17:00 (Lipitor) 80 mg HS PO 01/10/17 21:00 (Nitrostat Sl) 0.4 mg Q3H PRN SL 01/10/17 17:00 (Ecotrin Ec) 81 mg DAILY PO 01/10/17 17:00 01/12/17 08:05 (NovoLOG SUPPLEMENTAL SCALE) 1 Q4H SQ 01/10/17 17:00 01/12/17 05:00 (NS Flush) 2 ml BID IV FLUSH 01/10/17 21:00 01/12/17 08:06 Miscellaneous Information 1 Q361D XX 01/10/17 17:15 (Chlorhexidine 2% Cloth) 3 pack Taper DAILY@04 TOP 01/11/17 04:00 01/07/18 03:59 01/12/17 04:00 (Chlorhexidine 2% Cloth) 3 pack UNSCH PRN TOP 01/10/17 17:15 (Afia-Colace) 1 tab BID PO 01/10/17 21:00 01/12/17 08:05 (Milk Of Magnesia Liq) 30 ml Q12H PRN PO 01/10/17 17:15 (Senokot) 17.2 mg Q12H PRN PO 01/10/17 17:15 (Dulcolax Supp) 10 mg DAILY PRN RECTAL 01/10/17 17:15 (Lactulose Liq) 30 ml DAILY PRN PO 01/10/17 17:15 Sodium Chloride 1,000 ml @ 0 mls/hr Q0M PRN OTHER 01/10/17 17:47 01/10/17 22:05 (Heparin Inj) 8,000 units UNSCH PRN IV FLUSH 01/10/17 18:00 Sodium Chloride 1,000 ml @ 200 mls/hr Q5H PRN IV 01/10/17 17:47 Sodium Chloride 1,000 ml @ 0 mls/hr Q0M PRN OTHER 01/10/17 17:47 (Mannitol Inj) 12.5 gm UNSCH PRN IV 01/10/17 18:00 Albumin Human 100 ml @ 60 mls/hr UNSCH PRN IV 01/10/17 18:00 (NS Flush) 5 ml UNSCH PRN IV FLUSH 01/10/17 18:00 (Heparin Inj) UNSCH PRN .XX 01/10/17 18:00 (Gentamicin (Dialysis) Inj) 20 mg UNSCH PRN OTHER 01/10/17 18:00 01/10/17 22:03 (Zofran Inj) 4 mg UNSCH PRN IV PUSH 01/10/17 18:00 (Tylenol) 650 mg UNSCH PRN PO 01/10/17 18:00 (Benadryl) 25 mg UNSCH PRN PO 01/10/17 18:00 (Nitrostat Sl) 0.4 mg UNSCH PRN SL 01/10/17 18:00 (Catapres) 0.1 mg UNSCH PRN PO 01/10/17 18:00 (Gelfoam 12 Mm/7 Mm Top) 1 foam UNSCH PRN TOP 01/10/17 18:00 (D50w (Vial) Inj) 50 ml UNSCH PRN IV PUSH 01/10/17 22:30 01/10/17 18:05 (Glucagon Inj) 1 mg UNSCH PRN OTHER 01/10/17 22:30 Dexmedetomidine HCl 200 mcg/ Sodium Chloride 52 ml @ 5.46 mls/hr TITRATE PRN IV 01/11/17 00:00 01/12/17 05:02 (Lopressor) 25 mg Q12HR PO 01/11/17 21:00 01/12/17 08:05 (Lopressor Inj) 5 mg Q1HR PRN IV PUSH 01/11/17 11:15 01/11/17 15:32 Diltiazem HCl 125 mg/Sodium Chloride 125 ml @ 5 mls/hr TITRATE PRN IV 01/11/17 17:30 01/12/17 06:23 Vital Signs / I&O Vital Signs Date Time Temp Pulse Resp B/P (MAP) Pulse Ox O2 Delivery O2 Flow Rate FiO2 01/12/17 06:23 79 157/91 01/12/17 06:00 78 01/12/17 04:00 79 01/12/17 04:00 98.8 79 25 140/89 (106) 100 01/12/17 02:00 79 01/12/17 00:00 79 01/12/17 00:00 98.6 79 24 171/97 (121) 100 01/11/17 22:02 99 Nasal Cannula 1.00 01/11/17 22:00 87 01/11/17 20:00 110 01/11/17 20:00 99.0 110 25 173/94 (120) 100 01/11/17 19:36 112 196/121 01/11/17 18:00 113 01/11/17 16:00 122 01/11/17 16:00 98.7 122 21 94 01/11/17 14:00 128 01/11/17 12:00 105 01/11/17 12:00 98.0 105 17 155/97 (116) 100 01/11/17 10:00 114 01/11/17 09:25 98 Nasal Cannula 1.00 I/O 01/11/17 01/11/17 01/11/17 01/12/17 01/12/17 01/12/17 07:00 15:00 23:00 07:00 15:00 23:00 Intake Total 1754 ml 512 ml 180 ml 218 ml Output Total 2300 ml 1450 ml 1750 ml Balance -546 ml 512 ml -1270 ml -1532 ml Intake IV Total 1754 ml 512 ml 180 ml 218 ml Output Urine Total 1000 ml 1450 ml 1750 ml Hemodialysis 1300 ml Physical Exam GENERAL: confused, in soft restraints CARDIOVASCULAR: Regular rate and rhythm without murmurs, gallops, or rubs. RESPIRATORY: Clear to auscultation. Breath sounds equal bilaterally. No wheezes , rales, or rhonchi. GASTROINTESTINAL: Abdomen soft, non-tender, nondistended. Normal active bowel sounds MUSCULOSKELETAL: Extremities without clubbing, cyanosis, or edema. NEURO: confused, in soft restraints Laboratory Laboratory Tests Test 01/11/17 08:51 01/11/17 17:38 01/12/17 06:18 Activated Partial Thromboplast Time 52.2 SEC Blood Gas Puncture Site LT RADIAL Blood Gas Patient Temperature 98.6 Blood Gas HCO3 19 mmol/L Blood Gas Base Excess -5.3 mmol/L Blood Gas Oxygen Saturation 94 % Arterial Blood pH 7.37 Arterial Blood Partial Pressure CO2 34 mmHg Arterial Blood Partial Pressure O2 86 mmHg Arterial Blood Oxygen Content 16.4 Vol % Arterial Blood Carboxyhemoglobin 1.7 % Arterial Blood Methemoglobin 1.2 % Blood Gas Hemoglobin 12.4 G/DL Oxygen Delivery Device NASAL CANNULA Blood Gas Liter Flow 1 L/M White Blood Count 10.3 TH/MM3 Red Blood Count 4.41 MIL/MM3 Hemoglobin 13.0 GM/DL Hematocrit 38.7 % Mean Corpuscular Volume 87.8 FL Mean Corpuscular Hemoglobin 29.5 PG Mean Corpuscular Hemoglobin Concent 33.6 % Red Cell Distribution Width 15.0 % Platelet Count 112 TH/MM3 Mean Platelet Volume 9.5 FL Neutrophils (%) (Auto) 84.7 % Lymphocytes (%) (Auto) 7.8 % Monocytes (%) (Auto) 6.6 % Eosinophils (%) (Auto) 0.6 % Basophils (%) (Auto) 0.3 % Neutrophils # (Auto) 8.7 TH/MM3 Lymphocytes # (Auto) 0.8 TH/MM3 Monocytes # (Auto) 0.7 TH/MM3 Eosinophils # (Auto) 0.1 TH/MM3 Basophils # (Auto) 0.0 TH/MM3 CBC Comment DIFF FINAL Differential Comment Blood Urea Nitrogen 69 MG/DL Creatinine 4.50 MG/DL Random Glucose 166 MG/DL Total Protein 6.9 GM/DL Albumin 2.8 GM/DL Calcium Level 7.6 MG/DL Magnesium Level 1.4 MG/DL Alkaline Phosphatase 60 U/L Aspartate Amino Transf (AST/SGOT) 23 U/L Alanine Aminotransferase (ALT/SGPT) 23 U/L Total Bilirubin 1.4 MG/DL Sodium Level 144 MEQ/L Potassium Level 4.0 MEQ/L Chloride Level 110 MEQ/L Carbon Dioxide Level 22.7 MEQ/L Anion Gap 11 MEQ/L Estimat Glomerular Filtration Rate 17 ML/MIN Imaging Last Impressions Head CT 01/10/17 1257 Signed Impressions: Service Date/Time: Tuesday, January 10, 2017 13:32 - CONCLUSION: No acute disease. Jermaine Malone Jr., MD Renal Ultrasound 01/10/17 0000 Signed Impressions: Service Date/Time: Tuesday, January 10, 2017 17:01 - CONCLUSION: Normal examination. Jermaine Malone Jr., MD Chest X-Ray 01/10/17 0000 Signed Impressions: Service Date/Time: Saturday, January 10, 2017 20:19 - CONCLUSION: 1. There is now a left central line in superior vena cava without pneumothorax. Dayday Post MD Assessment and Plan Problem List: (1) Elevated troponin ICD Codes: R74.8 - Abnormal levels of other serum enzymes Status: Acute Plan: Normal LVEF, recent non-ischemic nuclear stress; likely due to his renal failure, anemia, and metabolic derangements. (2) Acute renal failure ICD Codes: N17.9 - Acute kidney failure, unspecified Status: Acute (3) Acute metabolic encephalopathy ICD Codes: G93.41 - Metabolic encephalopathy (4) Atrial flutter ICD Codes: I48.92 - Unspecified atrial flutter Plan: Currently rate controlled; likely not an anticoagulation candidate due to anemia requiring blood transfusion and poor mental status; but if his mental status cleared, this could be re-evaluated. Assessment and Plan Given his normal LVEF and recent non-ischemic nuclear stress, as well as his significantly altered mental status, do not feel further cardiac workup warranted at this time. If his mental status clears, a conversation regarding anticoagulation would be appropriate. Will sign off, please call with questions. Problem Qualifiers (1) Acute renal failure: Qualified Codes: N17.9 - Acute kidney failure, unspecified Chirag Vasquez MD Jan 12, 2017 08:40
--- NOTE | 2017-01-12 12:33 | HHI.NPPN ---
Subjective History of Present Illness 56-year-old male with past medical history of chronic kidney disease, diabetes mellitus, history of cerebrovascular accident with hemiparesis, ischemic heart disease, hypertension, atrial fibrillation who came to the hospital with generalized weakness and dizziness. I was called to see the patient because of very high BUN and creatinine, metabolic acidosis and hyperkalemia. The patient has known history of chronic kidney disease and his baseline creatinine seems to me in the range of 1.6 to 2.2. Additional Remarks Patient is alert, not fully oriented, occ. not in distress. Review of Systems General Constitutional: Fatigue Cardiovascular Cardiac: [id number] Objective Data Data 01/12/17 01/13/17 19:00 07:00 Intake Total 47 ml Balance 47 ml Intake IV Total 47 ml Vital Signs Date Time Temp Pulse Resp B/P (MAP) Pulse Ox O2 Delivery O2 Flow Rate FiO2 01/12/17 10:00 79 01/12/17 08:00 79 01/12/17 08:00 98.7 79 28 143/89 (107) 100 01/12/17 06:23 79 157/91 01/12/17 06:00 78 01/12/17 04:00 79 01/12/17 04:00 98.8 79 25 140/89 (106) 100 01/12/17 02:00 79 01/12/17 00:00 79 01/12/17 00:00 98.6 79 24 171/97 (121) 100 01/11/17 22:02 99 Nasal Cannula 1.00 01/11/17 22:00 87 01/11/17 20:00 110 01/11/17 20:00 99.0 110 25 173/94 (120) 100 01/11/17 19:36 112 196/121 01/11/17 18:00 113 01/11/17 16:00 122 01/11/17 16:00 98.7 122 21 94 01/11/17 14:00 128 -: 01/12/17 0618 01/12/17 0618 Physical Exam General Appearance: No Acute Distress, Comfortable, Anxious Throat Throat Exam: Oral Mucosa [place] & Moist Pulmonary Resp Exam: Breath Sounds Equal, No Distress, Rhonchi, Decreased Bases, Diminished Breath Sounds Cardiology CV Exam: Regular, Normal Sinus Rhythm Gastrointestinal/Abdomen GI Exam: Soft, Non-Tender, Bowel Sounds Present Extremeties Extremities Exam: Trace Edema Neurologic Neuro Exam: Alert, Awake Assessment/Plan Assessment Summary: ABNER/Acute Renal Failure, CKD Stage III Electrolyte Assessment: Hyperkalemia, Hypocalcemia, Metabolic Acidosis Problem List: (1) History of CVA (cerebrovascular accident) ICD Codes: Z86.73 - Personal history of transient ischemic attack (TIA), and cerebral infarction without residual deficits (2) HTN (hypertension) ICD Codes: I10 - Essential (primary) hypertension Status: Acute (3) Diabetes ICD Codes: E11.9 - Type 2 diabetes mellitus without complications Status: Acute (4) Metabolic acidemia ICD Codes: E87.2 - Acidosis (5) Hyperkalemia ICD Codes: E87.5 - Hyperkalemia Status: Acute (6) Acute renal failure ICD Codes: N17.9 - Acute kidney failure, unspecified Status: Acute Plan Patient has chronic kidney disease and develop ABNER. Also has metabolic acidosis and Hyperkalemia. Patient has HD done Thursday and then started resolving ARF ATN resolving No HD today, follow the urine out put and BMP. 1/2 NS at 84 cc/hr Problem Qualifiers (1) HTN (hypertension): Qualified Codes: I10 - Essential (primary) hypertension (2) Diabetes: (3) Acute renal failure: Qualified Codes: N17.9 - Acute kidney failure, unspecified Parth Ruiz MD Jan 12, 2017 12:33
[2017-01-12] MEDS: SODIUM CHLOR 0.45% 1000 ML INJ 1,000 ML IV SCH (14:53)
--- NOTE | 2017-01-12 19:52 | HHI.CCPN ---
Subjective Remarks/Hospital Course Is a 56-year-old male with past medical history significant for chronic kidney disease baseline creatinine 1.8-2, type 2 diabetes, history of CVA with residual left hemiparesis, history of coronary artery disease, hypertension, atrial fibrillation, who presented to the emergency department with generalized weakness and dizziness going on for 1 week. [facility] lives [facility] and walks with a cane due to previous stroke and hemiparesis. He states that he had at least a couple falls due to weakness. He admits to not drinking enough water and for the last 2 days was probably having diarrhea as well. Denies abdominal pain nausea or vomiting. ER evaluation showed severe acute on chronic kidney failure, hyperkalemia and severe metabolic acidosis. Patient's potassium was 6.5 bicarbonate was 10, BUN 19 and creatinine of 10. Troponin was 2.2. Patient received calcium, IV insulin followed by D50, IV bicarbonate for hyperkalemia I evaluated the patient in the ED. He is tachycardic in atrial flutter and EKG shows significant left anterolateral ischemic changes. Patient is lethargic but wakes up easily and communicates. A stat ABG shows a pH of 7.12 PCO2 of 30 PO2 of 107 base excess of -18. I have requested 2 A of bicarbonate stat, and increased bicarbonate infusion 150 ML per hour. Patient will need emergency dialysis for severe acidemia and hyperkalemia. I have discussed with Dr. Jiang. Willl place [facility] when patient gets to the ICU 01/11: Started on HD yesterday, will get HD again today. required Precedex overnight for agitation. Transfused 2 U PRBC for Hb 6.4. Heparin DCD. hb 11.4 today. Creat 10.14, improved to 6.9. Making urine, 1L since admission 01/12: clinically improving. Cr better. remains on precedex, but improving. hgb improved. Objective Vital Signs Date Time Temp Pulse Resp B/P (MAP) Pulse Ox O2 Delivery O2 Flow Rate FiO2 01/12/17 19:31 83 158/92 01/12/17 16:00 98.7 19 100 01/11/17 22:02 Nasal Cannula 1.00 Intake and Output 01/12/17 01/12/17 01/13/17 08:00 16:00 00:00 Intake Total 160 ml 47 ml 600 ml Output Total 1750 ml 1900 ml Balance -1590 ml 47 ml -1300 ml Result Diagram: 01/12/1761701/12/17617 Objective Remarks GENERAL: patient slightly confused but arousable. HEAD: Normocephalic. Atraumatic. EYES: Pupils equal and round. No scleral icterus. ENT: No nasal bleeding or discharge. Mucous membranes moist NECK: Trachea midline. CARDIOVASCULAR: tachycardic, regular rhythm. Telemetry shows atrial flutter with variable block RESPIRATORY: Clear to auscultation. Breath sounds equal bilaterally. GASTROINTESTINAL: Abdomen soft. Nontender. MUSCULOSKELETAL: No obvious deformities. NEUROLOGICAL: slightly confused but arousable and interactive. followed commands. A/P Assessment and Plan NEURO: Acute metabolic encephalopathy Agitated Delirium History of previous CVA with left hemiparesis - Delirium due to acute illness. - Preceded gtt. Wean to DC as tolerated - use haldol as needed to wean off precedex. RESP: Probable COPD Severe combined metabolic and respiratory acidosis - resolved. Past Tobacco abuse - Nasal cannula oxygen, protecting airway - DuoNeb every 6 hours and when necessary CV: Atrial flutter with rapid ventricular response - rate controlled. NSTEMI History of coronary artery disease - Received total 4.5 L normal saline boluses, then bicarb infusion at 150 ml per hour. - Metoprolol started by cardiology. Cardizem gtt for a flutter rate control - Continue ASA. DC IV Heparin due to severe anemia. NTG PRN - 2 D Echo normal EF. no RWMA. PASP 47 GI: - renal diet as tolerated. - Continue PPI : Acute on chronic kidney failure/ABNER Hyperkalemia Severe metabolic acidosis - resolved. - Discussed with Dr. Jiang. Placed VasCath and initiated emergency HD for hyperkalemia acute renal failure and severe acidosis on 01/10/17 - Monitor renal function closely. Montelongo catheter. Renal US - s/p Aggressive resuscitation with 4.5L crystalloids and bicarbonate infusion 150 ml per hour. Now bicarb off - Hyperkalemia treated in the ER with IV calcium, IV bicarbonate, insulin and D50 and later HD. K is normal now ID: - Monitor for infection, no indication for antibiotics at this time HEME: - Monitor CBC, CMP, coags ENDO: Type 2 diabetes Hyperglycemia Dyslipidemia - Sliding-scale insulin PROPH: - Bilateral lower extremity SCDs. Heparin IV DCd, protonix 40 mg IV q12 LINES: - Utilize peripheral IVs, s/p VasCath placement Once off precedex, stable for transfer to floor. will transfer to hospitalist service for ongoing medical needs. Alex Ventura MD Jan 12, 2017 19:52
[2017-01-12] MEDS: ATORVASTATIN 80 MG TAB PO SCH (21:19)
[2017-01-13] VITALS (30 sets, daily range): BP systolic 117–179; BP diastolic 86–111; PULSE 82–118; RESP 13–45; TEMP 99–100.3; O2SAT 59–100
[2017-01-13] MEDS: INSULIN ASPART SUPPLEMENTAL SCALE SQ SCH ×6 (01:00→21:00)
[2017-01-13] MEDS: SODIUM CHLOR 0.45% 1000 ML INJ 1,000 ML IV SCH (01:04)
[2017-01-13] MEDS: CHLORHEXIDINE GLUCONATE 2 % 1 PACK (2 CLOTHS) TOP SCH (01:04)
[2017-01-13] MEDS: DILTIAZEM HCL 60 MG TAB PO SCH ×4 (06:54→23:56)
[2017-01-13 06:56] LABS: HEMATOCRIT 33.5 % (39.0-51.0); MEAN CORPUSCULAR HEMOGLOBIN 29.4 PG (27.0-34.0); MEAN CORPUSCULAR HGB CONC 33.4 % (32.0-36.0); PLATELET COUNT 99 TH/MM3 (150-450); RED CELL DISTRIBUTION WIDTH 13.7 % (11.6-17.2); WHITE BLOOD COUNT 9.2 TH/MM3 (4.0-11.0)
[2017-01-13 07:05] LABS: REVIEW FLAG FINAL
[2017-01-13 07:27] LABS: BICARBONATE 24.8 MEQ/L (21.0-32.0); POTASSIUM 3.4 MEQ/L (3.5-5.1)
[2017-01-13 08:08] LABS: CALCIUM-PROTEIN CORRECTED 7.4 MG/DL (8.5-10.1)
[2017-01-13] MEDS: DOCUSATE SODIUM 50 MG/SENNA 8.6 MG TAB PO SCH ×2 (09:00→20:25)
[2017-01-13] MEDS: SODIUM CHLORIDE 0.9% FLUSH 10 ML FLUSH IV FLUSH SCH ×2 (10:10→21:00)
[2017-01-13] MEDS: ASPIRIN EC 81 MG TABEC PO SCH (10:11)
[2017-01-13] MEDS: METOPROLOL TARTRATE 25 MG TAB PO SCH ×2 (10:12→20:25)
--- NOTE | 2017-01-13 10:28 | HHI.PR ---
Subjective Remarks Patient had an episode of emesis just prior to my evaluation. Regular food content. He denies nausea currently. Discussed with RN. No new issues otherwise. Objective Vitals Vital Signs Date Time Temp Pulse Resp B/P (MAP) Pulse Ox O2 Delivery O2 Flow Rate FiO2 01/13/17 06:00 104 01/13/17 04:00 91 01/13/17 04:00 99.7 91 23 117/89 (98) 98 01/13/17 02:00 82 01/13/17 00:00 99.4 82 26 132/93 (106) 98 01/13/17 00:00 82 01/12/17 22:00 82 01/12/17 20:30 100 Nasal Cannula 1.00 01/12/17 20:00 99.5 80 17 144/91 (108) 100 01/12/17 20:00 80 01/12/17 19:31 83 158/92 01/12/17 18:00 79 01/12/17 16:00 80 01/12/17 16:00 98.7 80 19 132/86 (101) 100 01/12/17 14:00 81 01/12/17 12:00 98.7 81 20 136/98 (111) 100 01/12/17 12:00 81 I/O 01/12/17 01/12/17 01/12/17 01/13/17 01/13/17 01/13/17 07:00 15:00 23:00 07:00 15:00 23:00 Intake Total 218 ml 47 ml 600 ml 1480 ml Output Total 1750 ml 1900 ml 850 ml Balance -1532 ml 47 ml -1300 ml 630 ml Intake Oral 480 ml 480 ml IV Total 218 ml 47 ml 120 ml 1000 ml Output Urine Total 1750 ml 1900 ml 850 ml # Bowel Movements 0 2 Result Diagram: 01/13/1762901/13/17629 Objective Remarks GENERAL: This is a well-nourished, well-developed patient, in no apparent distress. CARDIOVASCULAR: Normal rate and regular rhythm without murmurs, gallops, or rubs. RESPIRATORY: Good respiratory efforts. Breath sounds equal and clear to auscultation bilaterally. GASTROINTESTINAL: Abdomen soft, non-tender, non-distended. Normal active bowel sounds MUSCULOSKELETAL: Extremities without cyanosis, or edema. NEURO: Alert & Oriented x4 to person, place, time, situation. Moves all ext x4 PSYCH: Appropriate mood and affect. A/P Problem List: (1) Acute on chronic kidney failure ICD Code: N17.9 - Acute kidney failure, unspecified; N18.9 - Chronic kidney disease, unspecified (2) Combined metabolic and respiratory acidosis (3) Acute metabolic encephalopathy ICD Code: G93.41 - Metabolic encephalopathy (4) NSTEMI (non-ST elevated myocardial infarction) ICD Code: I21.4 - Non-ST elevation (NSTEMI) myocardial infarction (5) Hyperkalemia ICD Code: E87.5 - Hyperkalemia Status: Acute (6) Metabolic acidemia ICD Code: E87.2 - Acidosis (7) History of CVA (cerebrovascular accident) ICD Code: Z86.73 - Personal history of transient ischemic attack (TIA), and cerebral infarction without residual deficits (8) Diabetes ICD Code: E11.9 - Type 2 diabetes mellitus without complications Status: Acute (9) HTN (hypertension) ICD Code: I10 - Essential (primary) hypertension Status: Acute Assessment and Plan 56-year-old male admitted with acute metabolic encephalopathy, acute on chronic renal failure. Patient is seen in the ICU. Acute metabolic encephalopathy Agitated Delirium History of previous CVA with left hemiparesis - Delirium due to acute illness. -Status post Precedex drip - use haldol as needed - Mental status back at baseline. Probable COPD Severe combined metabolic and respiratory acidosis - resolved. Past Tobacco abuse - Nasal cannula oxygen, protecting airway - DuoNeb every 6 hours and when necessary Atrial flutter with rapid ventricular response - rate controlled. NSTEMI History of coronary artery disease - Received total 4.5 L normal saline boluses, then bicarb infusion at 150 ml per hour. - Metoprolol started by cardiology. Wean off Cardizem drip as tolerated. - Continue ASA. DC IV Heparin due to severe anemia. NTG PRN - 2 D Echo normal EF. no RWMA. PASP 47 Acute on chronic kidney failure/ABNER Hyperkalemia Severe metabolic acidosis - resolved. - Status post emergency HD for hyperkalemia acute renal failure and severe acidosis on 01/10/17 - Monitor renal function closely. Montelongo catheter. Renal US - s/p Aggressive resuscitation with 4.5L crystalloids and bicarbonate infusion 150 ml per hour. Now bicarb off -Renal function improving. Dialysis on hold. Type 2 diabetes Hyperglycemia Dyslipidemia - Sliding-scale insulin PROPH: - Bilateral lower extremity SCDs. Heparin IV DCd, protonix 40 mg IV q12 LINES: - Utilize peripheral IVs, s/p VasCath placement Discharge Planning OK to transfer to stepdown unit. Problem Qualifiers (1) Diabetes: (2) HTN (hypertension): Qualified Codes: I10 - Essential (primary) hypertension Tho Bourne MD Jan 13, 2017 10:28
--- NOTE | 2017-01-13 12:49 | HHI.NPPN ---
Subjective History of Present Illness 56-year-old male with past medical history of chronic kidney disease, diabetes mellitus, history of cerebrovascular accident with hemiparesis, ischemic heart disease, hypertension, atrial fibrillation who came to the hospital with generalized weakness and dizziness. I was called to see the patient because of very high BUN and creatinine, metabolic acidosis and hyperkalemia. The patient has known history of chronic kidney disease and his baseline creatinine seems to me in the range of 1.6 to 2.2. Additional Remarks Patient is alert, . not in distress. Review of Systems General Constitutional: Fatigue Cardiovascular Cardiac: RODRÍGUEZ Objective Data Data Vital Signs Date Time Temp Pulse Resp B/P (MAP) Pulse Ox O2 Delivery O2 Flow Rate FiO2 01/13/17 09:20 100 Nasal Cannula 1.00 01/13/17 06:00 104 01/13/17 04:00 91 01/13/17 04:00 99.7 91 23 117/89 (98) 98 01/13/17 02:00 82 01/13/17 00:00 99.4 82 26 132/93 (106) 98 01/13/17 00:00 82 01/12/17 22:00 82 01/12/17 20:30 100 Nasal Cannula 1.00 01/12/17 20:00 99.5 80 17 144/91 (108) 100 01/12/17 20:00 80 01/12/17 19:31 83 158/92 01/12/17 18:00 79 01/12/17 16:00 80 01/12/17 16:00 98.7 80 19 132/86 (101) 100 01/12/17 14:00 81 -: 01/13/17 0630 01/13/17 0630 Physical Exam General Appearance: No Acute Distress, Comfortable, Anxious Throat Throat Exam: Oral Mucosa [place] & Moist Pulmonary Resp Exam: Breath Sounds Equal, No Distress, Rhonchi, Decreased Bases, Diminished Breath Sounds Cardiology CV Exam: Regular, Normal Sinus Rhythm Gastrointestinal/Abdomen GI Exam: Soft, Non-Tender, Bowel Sounds Present Extremeties Extremities Exam: Trace Edema Neurologic Neuro Exam: Alert, Awake Assessment/Plan Assessment Summary: ABNER/Acute Renal Failure, CKD Stage III Electrolyte Assessment: Hyperkalemia, Hypocalcemia, Metabolic Acidosis Problem List: (1) History of CVA (cerebrovascular accident) ICD Codes: Z86.73 - Personal history of transient ischemic attack (TIA), and cerebral infarction without residual deficits (2) HTN (hypertension) ICD Codes: I10 - Essential (primary) hypertension Status: Acute (3) Diabetes ICD Codes: E11.9 - Type 2 diabetes mellitus without complications Status: Acute (4) Metabolic acidemia ICD Codes: E87.2 - Acidosis (5) Hyperkalemia ICD Codes: E87.5 - Hyperkalemia Status: Acute (6) Acute renal failure ICD Codes: N17.9 - Acute kidney failure, unspecified Status: Acute Plan Patient has chronic kidney disease and develop ABNER. Also has metabolic acidosis and Hyperkalemia. Patient has HD done Thursday and then started resolving ARF ATN resolving Cr declining Na 147 on 03/24 NS switch to / saline follow BMP Problem Qualifiers (1) HTN (hypertension): Qualified Codes: I10 - Essential (primary) hypertension (2) Diabetes: (3) Acute renal failure: Qualified Codes: N17.9 - Acute kidney failure, unspecified Parth Ruiz MD Jan 13, 2017 12:49
[2017-01-13] MEDS: SODIUM CHLORIDE 23.4% INJ 38.5 MEQ in WATER STERILE FOR INJ 1,000 ML IV SCH (16:48)
[2017-01-13] MEDS: ATORVASTATIN 80 MG TAB PO SCH (20:25)
[2017-01-14] VITALS (43 sets, daily range): BP systolic 143–197; BP diastolic 86–128; PULSE 81–130; RESP 13–41; TEMP 98.4–100.5; O2SAT 83–100
[2017-01-14] MEDS: INSULIN ASPART SUPPLEMENTAL SCALE SQ SCH ×6 (01:00→19:52)
[2017-01-14] MEDS: CHLORHEXIDINE GLUCONATE 2 % 1 PACK (2 CLOTHS) TOP SCH (04:00)
[2017-01-14] MEDS: METOPROLOL TARTRATE 5 MG/5 ML VIAL IV PUSH PRN ×3 (05:05→21:16)
[2017-01-14] MEDS: DILTIAZEM HCL 60 MG TAB PO SCH ×3 (05:06→18:00)
[2017-01-14] MEDS: ONDANSETRON HCL 4 MG/2 ML VIAL IV PUSH PRN ×3 (05:20→21:18)
[2017-01-14 05:41] LABS: MEAN CELL VOLUME 89.1 FL (80.0-100.0); MEAN CORPUSCULAR HEMOGLOBIN 29.8 PG (27.0-34.0); MEAN CORPUSCULAR HGB CONC 33.5 % (32.0-36.0); PLATELET COUNT 133 TH/MM3 (150-450); RED BLOOD COUNT 4.04 MIL/MM3 (4.50-5.90); RED CELL DISTRIBUTION WIDTH 14.6 % (11.6-17.2); REVIEW FLAG FINAL; WHITE BLOOD COUNT 10.3 TH/MM3 (4.0-11.0)
[2017-01-14 06:12] LABS: BICARBONATE 27.1 MEQ/L (21.0-32.0); POTASSIUM 3.3 MEQ/L (3.5-5.1)
[2017-01-14] MEDS: ASPIRIN EC 81 MG TABEC PO SCH (07:47)
[2017-01-14] MEDS: cloNIDine HCL 0.1 MG TAB PO PRN ×3 (07:47→19:50)
[2017-01-14] MEDS: DOCUSATE SODIUM 50 MG/SENNA 8.6 MG TAB PO SCH ×2 (09:00→19:51)
[2017-01-14] MEDS: SODIUM CHLORIDE 23.4% INJ 38.5 MEQ in WATER STERILE FOR INJ 1,000 ML IV SCH (09:47)
[2017-01-14] MEDS: SODIUM CHLORIDE 0.9% FLUSH 10 ML FLUSH IV FLUSH SCH ×2 (09:47→19:52)
[2017-01-14] MEDS: DILTIAZEM INJ 125 MG in SODIUM CHLORIDE 0.9% INJ 100 ML IV PRN ×2 (09:55→21:40)
[2017-01-14] MEDS: METOPROLOL TARTRATE 25 MG TAB PO SCH ×2 (11:17→19:51)
--- NOTE | 2017-01-14 11:29 | HHI.PR ---
Subjective Remarks Pt states that he feels like "I have pneumonia". Been feeling nauseous and has also been vomiting since last night. coughing up phlegm Discussed w RN, he has been dry heaving. Low fever 100.5. Cardizem was resumed as pt was tachy Discussed w sister in law over the phone ( w pt's permission), she tells me that pt has been complaining of chills. Objective Vitals Vital Signs Date Time Temp Pulse Resp B/P (MAP) Pulse Ox O2 Delivery O2 Flow Rate FiO2 01/14/17 09:55 130 173/110 01/14/17 08:18 98 01/14/17 06:00 112 01/14/17 04:00 105 01/14/17 04:00 105 23 172/106 (128) 94 01/14/17 02:00 114 01/14/17 00:00 106 01/14/17 00:00 100.5 106 27 170/104 (126) 93 01/13/17 22:00 104 01/13/17 21:55 93 21 01/13/17 20:00 113 01/13/17 20:00 100.3 113 13 161/109 (126) 100 01/13/17 18:00 108 01/13/17 18:00 108 34 179/111 (133) 100 01/13/17 17:30 106 16 156/106 (123) 100 01/13/17 17:00 105 19 142/102 (115) 100 01/13/17 16:30 118 45 133/96 (108) 87 01/13/17 16:00 99.1 106 30 150/103 (119) 100 01/13/17 16:00 106 01/13/17 15:31 106 18 159/93 (115) 100 01/13/17 15:00 109 21 168/94 (118) 100 01/13/17 14:31 112 15 157/93 (114) 99 01/13/17 14:00 112 01/13/17 14:00 112 22 137/92 (107) 59 01/13/17 13:30 104 16 150/94 (112) 01/13/17 13:00 102 25 147/97 (114) 01/13/17 12:00 99.1 83 20 153/98 (116) 88 01/13/17 12:00 83 01/13/17 11:30 92 28 148/101 (117) 92 I/O 01/13/17 01/13/17 01/13/17 01/14/17 01/14/17 01/14/17 07:00 15:00 23:00 07:00 15:00 23:00 Intake Total 1600 ml 924 ml 214 ml 50 ml Output Total 850 ml 1000 ml 1500 ml Balance 750 ml 924 ml -786 ml -1450 ml Intake Oral 480 ml 50 ml IV Total 1120 ml 924 ml 214 ml Output Urine Total 850 ml 1000 ml 1500 ml # Bowel Movements 2 4 0 Result Diagram: 01/14/17 0529 01/14/17 0529 Imaging Last Impressions Head CT 01/10/17 1257 Signed Impressions: Service Date/Time: Tuesday, January 10, 2017 13:32 - CONCLUSION: No acute disease. Jermaine Malone Jr., MD Renal Ultrasound 01/10/17 0000 Signed Impressions: Service Date/Time: Tuesday, January 10, 2017 17:01 - CONCLUSION: Normal examination. Jermaine Malone Jr., MD Chest X-Ray 01/10/17 0000 Signed Impressions: Service Date/Time: Tuesday, January 10, 2017 20:19 - CONCLUSION: 1. There is now a left central line in superior vena cava without pneumothorax. Dayday Post MD Objective Remarks GENERAL: AA male appears a somewhat uncomfortable. CARDIOVASCULAR: tachy and irregular. RESPIRATORY: Good respiratory efforts. I didn't appreciate any wheezing or crackles. GASTROINTESTINAL: Abdomen soft, non-tender, non-distended. Normal active bowel sounds MUSCULOSKELETAL: Extremities without edema. NEURO: Alert & Oriented. He is able to sit up in bed for me to auscultate him PSYCH: Appropriate mood and affect. A/P Problem List: (1) Acute on chronic kidney failure ICD Code: N17.9 - Acute kidney failure, unspecified; N18.9 - Chronic kidney disease, unspecified (2) Combined metabolic and respiratory acidosis (3) Acute metabolic encephalopathy ICD Code: G93.41 - Metabolic encephalopathy (4) NSTEMI (non-ST elevated myocardial infarction) ICD Code: I21.4 - Non-ST elevation (NSTEMI) myocardial infarction (5) Hyperkalemia ICD Code: E87.5 - Hyperkalemia Status: Acute (6) Metabolic acidemia ICD Code: E87.2 - Acidosis (7) History of CVA (cerebrovascular accident) ICD Code: Z86.73 - Personal history of transient ischemic attack (TIA), and cerebral infarction without residual deficits (8) Diabetes ICD Code: E11.9 - Type 2 diabetes mellitus without complications Status: Acute (9) HTN (hypertension) ICD Code: I10 - Essential (primary) hypertension Status: Acute Assessment and Plan 56-year-old male admitted with acute metabolic encephalopathy, acute on chronic renal failure. Patient is seen in the ICU. Acute metabolic encephalopathy Agitated Delirium History of previous CVA with left hemiparesis - Delirium due to acute illness. - s/p Precedex drip - use haldol as needed - Mental status back at baseline. Probable COPD Severe combined metabolic and respiratory acidosis - resolved. Past Tobacco abuse - Nasal cannula oxygen, protecting airway - DuoNeb every 6 hours and when necessary Fevers New 100.5 today. No leukocytosis. Sister in law concerned that pt complained to her that he is having chills. Pt coughing up phlegm check stat u/a, chest x-ray and blood cx. hold off on starting emperic abx until u/a and xray resulted for now. Atrial flutter with rapid ventricular response - rate controlled. NSTEMI History of coronary artery disease - Received total 4.5 L normal saline boluses, then bicarb infusion at 150 ml per hour. - Metoprolol started by cardiology however HR elevated today. Cardizem has been restarted by RN. wean off as tolerated. - Continue ASA. DC IV Heparin due to severe anemia. NTG PRN - 2 D Echo normal EF. no RWMA. Acute on chronic kidney failure/ABNER Hyperkalemia Severe metabolic acidosis - resolved. - Status post emergency HD for hyperkalemia acute renal failure and severe acidosis on 01/10/17 - Monitor renal function closely and it is slowly improving Cr 2.2 today. Montelongo catheter. Renal US normal. - s/p Aggressive resuscitation with 4.5L crystalloids and bicarbonate infusion 150 ml per hour. Now bicarb off - Renal function improving. Dialysis on hold. replace KCl now Nausea/vomiting zofran prn added reglan prn. Type 2 diabetes Hyperglycemia Dyslipidemia - Sliding-scale insulin PROPH: - Bilateral lower extremity SCDs. Heparin IV DCd, protonix 40 mg IV q12 Discharge Planning f/u u/a, chest x-ray. f/u blood cx. may need to cover for PNA. await results. Problem Qualifiers (1) Diabetes: (2) HTN (hypertension): Qualified Codes: I10 - Essential (primary) hypertension Shawanda Pena MD Jan 14, 2017 11:29
--- NOTE | 2017-01-14 12:10 | RADRPT ---
EXAM DATE/TIME: 01/14/2017 11:54 [facility] COMPARISON: CHEST SINGLE AP, January 10, 2017, 20:19. INDICATIONS : Short of breath. MEDICAL HISTORY : Stroke. Hypertension. Myocardial infarction. SURGICAL HISTORY : None. ENCOUNTER: Subsequent ACUITY: 1 week PAIN SCORE: 0/10 LOCATION: Bilateral chest FINDINGS: Left IJ dialysis catheter in stable position. Stable minimal bibasilar airspace disease. Cardiac silh [place] is enlarged. Remainder of the exam is unchanged. CONCLUSION: 1. Compensated cardiomegaly. 2. Minimal bibasilar airspace disease, likely atelectasis. 3. No significant interval change. Johnathon Ramon MD on January 14, 2017 at 12:08 Board Certified Radiologist. This report was verified electronically.
[2017-01-14] MEDS: POTASSIUM CHLOR 20 MEQ PREMIX 100 ML IV SCH ×2 (13:19→15:19)
--- NOTE | 2017-01-14 13:31 | HHI.NPPN ---
Subjective History of Present Illness 56-year-old male with past medical history of chronic kidney disease, diabetes mellitus, history of cerebrovascular accident with hemiparesis, ischemic heart disease, hypertension, atrial fibrillation who came to the hospital with generalized weakness and dizziness. I was called to see the patient because of very high BUN and creatinine, metabolic acidosis and hyperkalemia. The patient has known history of chronic kidney disease and his baseline creatinine seems to me in the range of 1.6 to 2.2. Additional Remarks Patient is alert, . not in distress. Review of Systems General Constitutional: Fatigue Cardiovascular Cardiac: RODRÍGUEZ Objective Data Data Vital Signs Date Time Temp Pulse Resp B/P (MAP) Pulse Ox O2 Delivery O2 Flow Rate FiO2 01/14/17 11:34 92 21 144/92 (109) 99 01/14/17 11:00 115 19 174/99 (124) 100 01/14/17 10:30 122 21 177/103 (127) 95 01/14/17 10:00 123 21 183/91 (121) 87 01/14/17 10:00 123 01/14/17 09:55 130 173/110 01/14/17 09:49 126 26 173/110 (131) 92 01/14/17 09:31 130 28 189/99 (129) 95 01/14/17 09:00 123 19 197/107 (137) 97 01/14/17 08:30 121 24 179/114 (135) 84 01/14/17 08:25 123 23 185/107 (133) 01/14/17 08:18 98 01/14/17 08:14 127 30 188/128 (148) 93 01/14/17 08:11 121 21 183/119 (140) 97 01/14/17 08:00 99.1 122 24 181/126 (144) 87 01/14/17 08:00 122 01/14/17 07:40 123 21 180/122 (141) 83 01/14/17 07:30 120 17 180/114 (136) 01/14/17 07:19 110 17 175/105 (128) 01/14/17 07:01 118 32 178/111 (133) 01/14/17 07:00 118 33 146/111 (123) 01/14/17 06:00 112 01/14/17 04:00 105 01/14/17 04:00 105 23 172/106 (128) 94 01/14/17 02:00 114 01/14/17 00:00 106 01/14/17 00:00 100.5 106 27 170/104 (126) 93 01/13/17 22:00 104 01/13/17 21:55 93 21 01/13/17 20:00 113 01/13/17 20:00 100.3 113 13 161/109 (126) 100 01/13/17 18:00 108 01/13/17 18:00 108 34 179/111 (133) 100 01/13/17 17:30 106 16 156/106 (123) 100 01/13/17 17:00 105 19 142/102 (115) 100 01/13/17 16:30 118 45 133/96 (108) 87 01/13/17 16:00 99.1 106 30 150/103 (119) 100 01/13/17 16:00 106 01/13/17 15:31 106 18 159/93 (115) 100 01/13/17 15:00 109 21 168/94 (118) 100 01/13/17 14:31 112 15 157/93 (114) 99 01/13/17 14:00 112 01/13/17 14:00 112 22 137/92 (107) 59 -: 01/14/17 0529 01/14/17 0529 Microbiology 01/14/17 Aerobic Blood Culture, Received Pending 01/14/17 Anaerobic Blood Culture, Received Pending 01/14/17 Aerobic Blood Culture, Received Pending 01/14/17 Anaerobic Blood Culture, Received Pending Physical Exam General Appearance: No Acute Distress, Comfortable, Anxious Throat Throat Exam: Oral Mucosa [place] & Moist Pulmonary Resp Exam: Breath Sounds Equal, No Distress, Rhonchi, Decreased Bases, Diminished Breath Sounds Cardiology CV Exam: Regular, Normal Sinus Rhythm Gastrointestinal/Abdomen GI Exam: Soft, Non-Tender, Bowel Sounds Present Extremeties Extremities Exam: Trace Edema Neurologic Neuro Exam: Alert, Awake Assessment/Plan Assessment Summary: ABNER/Acute Renal Failure, CKD Stage III Electrolyte Assessment: Hyperkalemia, Hypocalcemia, Metabolic Acidosis Problem List: (1) History of CVA (cerebrovascular accident) ICD Codes: Z86.73 - Personal history of transient ischemic attack (TIA), and cerebral infarction without residual deficits (2) HTN (hypertension) ICD Codes: I10 - Essential (primary) hypertension Status: Acute (3) Diabetes ICD Codes: E11.9 - Type 2 diabetes mellitus without complications Status: Acute (4) Metabolic acidemia ICD Codes: E87.2 - Acidosis (5) Hyperkalemia ICD Codes: E87.5 - Hyperkalemia Status: Acute (6) Acute renal failure ICD Codes: N17.9 - Acute kidney failure, unspecified Status: Acute Plan Patient has chronic kidney disease and develop ABNER. Also has metabolic acidosis and Hyperkalemia. Patient has HD done Thursday and then started resolving ARF ATN resolving Cr declining cr 2.2, K was replace Na 144 switch to 1/4 saline follow BMP Problem Qualifiers (1) HTN (hypertension): Qualified Codes: I10 - Essential (primary) hypertension (2) Diabetes: (3) Acute renal failure: Qualified Codes: N17.9 - Acute kidney failure, unspecified Parth Ruiz MD Jan 14, 2017 13:31
[2017-01-14] MEDS: METOCLOPRAMIDE HCL 10 MG/2 ML VIAL IV PUSH PRN ×2 (16:08→22:57)
[2017-01-14] MEDS: ATORVASTATIN 80 MG TAB PO SCH (19:51)
[2017-01-14] MEDS ORDERED: hydrALAZINE HCL 20 MG/ML VIAL IV PUSH ONE (23:00)
[2017-01-15] VITALS (14 sets, daily range): BP systolic 130–167; BP diastolic 86–108; PULSE 77–125; RESP 18–20; TEMP 98.9–100; O2SAT 95–100
[2017-01-15] MEDS: SODIUM CHLORIDE 23.4% INJ 38.5 MEQ in WATER STERILE FOR INJ 1,000 ML IV SCH ×2 (00:05→12:49)
[2017-01-15] MEDS: DILTIAZEM HCL 60 MG TAB PO SCH ×2 (00:05→07:03)
[2017-01-15] MEDS: INSULIN ASPART SUPPLEMENTAL SCALE SQ SCH ×6 (01:00→21:00)
[2017-01-15] MEDS: cloNIDine HCL 0.1 MG TAB PO PRN (02:07)
[2017-01-15] MEDS: CHLORHEXIDINE GLUCONATE 2 % 1 PACK (2 CLOTHS) TOP SCH (04:00)
[2017-01-15 07:17] LABS: AUTOMATED NEUTROPHIL # 8.6 TH/MM3 (1.8-7.7); BASOPHIL % 0.2 % (0.0-2.0); EOSINOPHIL # 0.1 TH/MM3 (0-0.4); EOSINOPHIL % 0.8 % (0.0-4.0); HEMATOCRIT 32.9 % (39.0-51.0); HEMO FLAGS DIFF FINAL; LYMPH % 8.3 % (9.0-44.0); LYMPHOCYTE # 0.9 TH/MM3 (1.0-4.8); MEAN CELL VOLUME 88.7 FL (80.0-100.0); MEAN CORPUSCULAR HEMOGLOBIN 29.8 PG (27.0-34.0); MEAN CORPUSCULAR HGB CONC 33.6 % (32.0-36.0); NEUT % 80.7 % (16.0-70.0); PLATELET COUNT 116 TH/MM3 (150-450); RED BLOOD COUNT 3.71 MIL/MM3 (4.50-5.90); RED CELL DISTRIBUTION WIDTH 14.4 % (11.6-17.2); WHITE BLOOD COUNT 10.6 TH/MM3 (4.0-11.0)
[2017-01-15 07:50] LABS: BICARBONATE 26.3 MEQ/L (21.0-32.0); POTASSIUM 3.4 MEQ/L (3.5-5.1)
[2017-01-15 07:53] LABS: BACTERIA, URINE RARE /hpf; BLOOD, URINE SMALL (NEG); COMMENT (UR) CULT NOT INDICATED; CULTURE IF INDICATED CULT NOT INDICATED; GLUCOSE,URINE NEG (NEG); KETONE, URINE 10 mg/dL (NEG); MUCUS URINE FEW /lpf (OCC); NITRITE,URINE NEG (NEG); PH, URINE 6.5 (5.0-8.5); SQUAMOUS EPITHELIAL CELL URINE <1 /hpf (0-5); URINE COLOR YELLOW (YELLW/STRAW)
[2017-01-15] MEDS: ONDANSETRON HCL 4 MG/2 ML VIAL IV PUSH PRN (08:47)
[2017-01-15] MEDS: DOCUSATE SODIUM 50 MG/SENNA 8.6 MG TAB PO SCH ×2 (08:48→21:12)
[2017-01-15] MEDS: SODIUM CHLORIDE 0.9% FLUSH 10 ML FLUSH IV FLUSH SCH ×2 (08:48→21:11)
[2017-01-15] MEDS: ASPIRIN EC 81 MG TABEC PO SCH (08:48)
[2017-01-15] MEDS: METOPROLOL TARTRATE 25 MG TAB PO SCH (08:48)
--- NOTE | 2017-01-15 09:56 | HHI.PR ---
Subjective Remarks Pt states he feels nauseous but feels better compared to yesterday, still has that cough. no chest pain, worsening sob. discussed w RN, pt hasn't been getting the reglan and recommends scheduling it. needs IV BP meds. Objective Vitals Vital Signs Date Time Temp Pulse Resp B/P (MAP) Pulse Ox O2 Delivery O2 Flow Rate FiO2 01/15/17 09:04 95 21 01/15/17 06:00 81 01/15/17 04:00 100.0 81 18 146/96 (113) 96 01/15/17 04:00 81 01/15/17 02:00 125 01/15/17 00:00 81 01/15/17 00:00 100.0 81 18 130/86 (101) 100 01/14/17 22:00 81 01/14/17 21:40 92 178/103 01/14/17 20:20 99 Nasal Cannula 2.00 01/14/17 20:00 116 01/14/17 20:00 99.4 116 35 193/119 (143) 91 01/14/17 18:00 113 01/14/17 17:39 84 18 173/99 (123) 92 01/14/17 17:30 98.4 116 21 180/106 (130) 99 01/14/17 17:21 126 33 171/106 (127) 92 01/14/17 17:00 99 13 162/107 (125) 98 01/14/17 16:31 109 16 174/100 (124) 98 01/14/17 16:02 127 31 143/98 (113) 87 01/14/17 16:00 98.4 118 41 95 01/14/17 16:00 118 01/14/17 15:41 101 15 166/109 (128) 100 01/14/17 15:30 95 27 172/111 (131) 97 01/14/17 15:00 118 22 158/86 (110) 93 01/14/17 14:30 116 27 165/113 (130) 100 01/14/17 14:30 116 27 165/113 (130) 100 01/14/17 14:00 106 37 170/107 (128) 96 01/14/17 14:00 106 01/14/17 14:00 106 37 170/107 (128) 96 01/14/17 13:30 123 17 194/101 (132) 95 01/14/17 13:30 123 17 194/101 (132) 95 01/14/17 13:13 118 17 185/113 (137) 99 01/14/17 13:13 118 17 185/113 (137) 99 01/14/17 13:00 122 34 178/114 (135) 01/14/17 13:00 122 34 178/114 (135) 01/14/17 12:30 116 21 173/114 (133) 100 01/14/17 12:00 99.6 100 24 154/98 (116) 98 01/14/17 12:00 100 01/14/17 11:34 92 21 144/92 (109) 99 01/14/17 11:00 115 19 174/99 (124) 100 01/14/17 10:30 122 21 177/103 (127) 95 01/14/17 10:00 123 21 183/91 (121) 87 01/14/17 10:00 123 01/14/17 09:55 130 173/110 01/14/17 09:49 126 26 173/110 (131) 92 I/O 01/14/17 01/14/17 01/14/17 01/15/17 01/15/17 01/15/17 07:00 15:00 23:00 07:00 15:00 23:00 Intake Total 50 ml 805 ml 2246 ml Output Total 1500 ml 1150 ml 650 ml Balance -1450 ml -345 ml 1596 ml Intake Oral 50 ml 480 ml 500 ml IV Total 325 ml 1746 ml Output Urine Total 1500 ml 1150 ml 650 ml # Bowel Movements 0 0 0 Result Diagram: 01/15/17 0639 01/15/17 0639 Imaging Last Impressions Chest X-Ray 01/14/17 1114 Signed Impressions: Service Date/Time: Saturday, January 14, 2017 11:54 - CONCLUSION: 1. Compensated cardiomegaly. 2. Minimal bibasilar airspace disease, likely atelectasis. 3. No significant interval change. Johnathon Ramon MD Head CT 01/10/17 1257 Signed Impressions: Service Date/Time: Tuesday, January 10, 2017 13:32 - CONCLUSION: No acute disease. Jermaine Malone Jr., MD Renal Ultrasound 01/10/17 0000 Signed Impressions: Service Date/Time: Tuesday, January 10, 2017 17:01 - CONCLUSION: Normal examination. Jermaine Malone Jr., MD Objective Remarks GENERAL: AA male laying in bed. CARDIOVASCULAR: tachy and irregular. RESPIRATORY: Good respiratory efforts. I didn't appreciate any wheezing or crackles. GASTROINTESTINAL: Abdomen soft, non-tender, non-distended. Normal active bowel sounds MUSCULOSKELETAL: Extremities without edema. NEURO: Alert & Oriented. He is able to sit up in bed for me to auscultate him, left sided weaker than right. PSYCH: Appropriate mood and affect. A/P Problem List: (1) Acute on chronic kidney failure ICD Code: N17.9 - Acute kidney failure, unspecified; N18.9 - Chronic kidney disease, unspecified (2) Combined metabolic and respiratory acidosis (3) Acute metabolic encephalopathy ICD Code: G93.41 - Metabolic encephalopathy (4) NSTEMI (non-ST elevated myocardial infarction) ICD Code: I21.4 - Non-ST elevation (NSTEMI) myocardial infarction (5) Hyperkalemia ICD Code: E87.5 - Hyperkalemia Status: Acute (6) Metabolic acidemia ICD Code: E87.2 - Acidosis (7) History of CVA (cerebrovascular accident) ICD Code: Z86.73 - Personal history of transient ischemic attack (TIA), and cerebral infarction without residual deficits (8) Diabetes ICD Code: E11.9 - Type 2 diabetes mellitus without complications Status: Acute (9) HTN (hypertension) ICD Code: I10 - Essential (primary) hypertension Status: Acute Assessment and Plan 56-year-old male admitted with acute metabolic encephalopathy, acute on chronic renal failure. Patient is seen in the ICU. Acute metabolic encephalopathy Agitated Delirium History of previous CVA with left hemiparesis - Delirium due to acute illness. - s/p Precedex drip - use haldol as needed - Mental status back at baseline. Probable COPD Severe combined metabolic and respiratory acidosis - resolved. Past Tobacco abuse - Nasal cannula oxygen, protecting airway - DuoNeb every 6 hours and when necessary Fevers New 100.0 today. No leukocytosis. Sister in law concerned that pt complained to her that he is having chills per my conversation yesterday, no chills reported today. Pt coughing up some phlegm u/a neg, chest x-ray concerning for atelectasis and blood cx pending. hold off on starting emperic abx for now, but if he spikes another temp will start emperic abx and get ID consult. Atrial flutter with rapid ventricular response - NSTEMI History of coronary artery disease HTN - Received total 4.5 L normal saline boluses, then bicarb infusion at 150 ml per hour. - Metoprolol started by cardiology however HR elevated today. Cardizem has been restarted by RN and pt still requiring it. wean off as tolerated. Will reconsult cards for assistance. - Continue ASA. DC IV Heparin due to severe anemia. NTG PRN - 2 D Echo normal EF. no RWMA. - added IV hydralazine prn. Acute on chronic kidney failure/ABNER Hyperkalemia Severe metabolic acidosis - resolved. - Status post emergency HD for hyperkalemia acute renal failure and severe acidosis on 01/10/17 - Monitor renal function closely and it is slowly improving Cr 1.92 today. [place] catheter. Renal US normal. - s/p Aggressive resuscitation with 4.5L crystalloids and bicarbonate infusion 150 ml per hour. Now bicarb off - Renal function improving. Dialysis on hold. replace KCl now Nausea/vomiting zofran prn added scheduled reglan Type 2 diabetes Hyperglycemia Dyslipidemia - Sliding-scale insulin PROPH: - Bilateral lower extremity SCDs. Heparin IV DCd, protonix 40 mg IV q12 Discharge Planning f/u blood cx. Encourage use of IS q1 hr while awake if pt continue to spike fevers, will get an ID consult as no source yet identified. Problem Qualifiers (1) Diabetes: (2) HTN (hypertension): Qualified Codes: I10 - Essential (primary) hypertension Shawanda Pena MD Jan 15, 2017 09:56
[2017-01-15] MEDS ORDERED: POTASSIUM CHLOR 10 MEQ PREMIX 100 ML IV SCH (10:00)
[2017-01-15] MEDS: METOCLOPRAMIDE HCL 10 MG/2 ML VIAL IV PUSH SCH ×2 (10:06→18:00)
[2017-01-15] MEDS: POTASSIUM CHLOR 20 MEQ PREMIX 100 ML IV SCH ×7 (10:06→23:57)
[2017-01-15] MEDS: DILTIAZEM INJ 125 MG in SODIUM CHLORIDE 0.9% INJ 100 ML IV PRN (10:45)
--- NOTE | 2017-01-15 11:08 | PD.CARD.PN ---
Subjective Subjective Remarks Denies CP, palpitations, dizziness, dizziness. Nauseated today. Vomited this morning. Objective Medications Item Value Date Time Hydralazine HCl 10 mg 01/15/17 1000 (Apresoline Inj) Q4H PRN/IV PUSH Potassium Chloride 100 ml @ 50 mls/hr 01/15/17 1000 Diltiazem HCl 60 mg 01/13/17 0600 (Cardizem) Q6HR/PO 01/15/17 0703 Metoprolol 25 mg 01/11/17 2100 Tartrate Q12HR/PO 01/15/17 0848 (Lopressor) Diltiazem HCl 125 125 ml @ 5 mls/hr 01/11/17 1730 mg/Sodium Chloride TITRATE PRN/IV 01/15/17 1045 Metoprolol 5 mg 01/11/17 1115 Tartrate Q1HR PRN/IV PUSH 01/14/17 2116 (Lopressor Inj) Atorvastatin 80 mg 01/10/17 2100 Calcium HS/PO 01/14/17 1951 (Lipitor) Aspirin 81 mg 01/10/17 1700 (Ecotrin Ec) DAILY/PO 01/15/17 0848 Current Medications Medications (Trade) Dose Ordered Sig/Mansi Route Start Time Stop Time Status Last Admin (Tylenol) 650 mg Q6H PRN PO 01/10/17 17:00 (Proair Hfa Inh) 2 puff Q6H PRN INH 01/10/17 17:00 (Lipitor) 80 mg HS PO 01/10/17 21:00 01/14/17 19:51 (Nitrostat Sl) 0.4 mg Q3H PRN SL 01/10/17 17:00 (Ecotrin Ec) 81 mg DAILY PO 01/10/17 17:00 01/15/17 08:48 (NovoLOG SUPPLEMENTAL SCALE) 1 Q4H SQ 01/10/17 17:00 01/13/17 21:00 (NS Flush) 2 ml BID IV FLUSH 01/10/17 21:00 01/15/17 08:48 Miscellaneous Information 1 Q361D XX 01/10/17 17:15 (Chlorhexidine 2% Cloth) 3 pack Taper DAILY@04 TOP 01/11/17 04:00 01/07/18 03:59 01/13/17 01:04 (Chlorhexidine 2% Cloth) 3 pack UNSCH PRN TOP 01/10/17 17:15 (Afia-Colace) 1 tab BID PO 01/10/17 21:00 01/15/17 08:48 (Milk Of Magnesia Liq) 30 ml Q12H PRN PO 01/10/17 17:15 (Senokot) 17.2 mg Q12H PRN PO 01/10/17 17:15 (Dulcolax Supp) 10 mg DAILY PRN RECTAL 01/10/17 17:15 (Lactulose Liq) 30 ml DAILY PRN PO 01/10/17 17:15 Sodium Chloride 1,000 ml @ 0 mls/hr Q0M PRN OTHER 01/10/17 17:47 01/10/17 22:05 (Heparin Inj) 8,000 units UNSCH PRN IV FLUSH 01/10/17 18:00 Sodium Chloride 1,000 ml @ 200 mls/hr Q5H PRN IV 01/10/17 17:47 Sodium Chloride 1,000 ml @ 0 mls/hr Q0M PRN OTHER 01/10/17 17:47 (Mannitol Inj) 12.5 gm UNSCH PRN IV 01/10/17 18:00 Albumin Human 100 ml @ 60 mls/hr UNSCH PRN IV 01/10/17 18:00 (NS Flush) 5 ml UNSCH PRN IV FLUSH 01/10/17 18:00 (Heparin Inj) UNSCH PRN .XX 01/10/17 18:00 (Gentamicin (Dialysis) Inj) 20 mg UNSCH PRN OTHER 01/10/17 18:00 01/10/17 22:03 (Zofran Inj) 4 mg UNSCH PRN IV PUSH 01/10/17 18:00 01/15/17 08:47 (Tylenol) 650 mg UNSCH PRN PO 01/10/17 18:00 (Benadryl) 25 mg UNSCH PRN PO 01/10/17 18:00 (Nitrostat Sl) 0.4 mg UNSCH PRN SL 01/10/17 18:00 (Catapres) 0.1 mg UNSCH PRN PO 01/10/17 18:00 01/15/17 02:07 (Gelfoam 12 Mm/7 Mm Top) 1 foam UNSCH PRN TOP 01/10/17 18:00 (D50w (Vial) Inj) 50 ml UNSCH PRN IV PUSH 01/10/17 22:30 01/10/17 18:05 (Glucagon Inj) 1 mg UNSCH PRN OTHER 01/10/17 22:30 Dexmedetomidine HCl 200 mcg/ Sodium Chloride 52 ml @ 5.46 mls/hr TITRATE PRN IV 01/11/17 00:00 01/12/17 14:53 (Lopressor) 25 mg Q12HR PO 01/11/17 21:00 01/15/17 08:48 (Lopressor Inj) 5 mg Q1HR PRN IV PUSH 01/11/17 11:15 01/14/17 21:16 Diltiazem HCl 125 mg/Sodium Chloride 125 ml @ 5 mls/hr TITRATE PRN IV 01/11/17 17:30 01/15/17 10:45 (Haldol Inj) 5 mg Q4H PRN IV 01/12/17 17:00 (Cardizem) 60 mg Q6HR PO 01/13/17 06:00 01/15/17 07:03 Sodium Chloride 38.5 meq/S[place]ile [place] 1,009.625 ml @ 84 mls/hr Q12H2M IV 01/13/17 15:00 01/15/17 00:05 (Reglan Inj) 5 mg Q8H IV PUSH 01/15/17 10:00 01/15/17 10:06 (Apresoline Inj) 10 mg Q4H PRN IV PUSH 01/15/17 10:00 Potassium Chloride 100 ml @ 50 mls/hr Q2H IV 01/15/17 10:00 01/15/17 10:06 Vital Signs / I&O Vital Signs Date Time Temp Pulse Resp B/P (MAP) Pulse Ox O2 Delivery O2 Flow Rate FiO2 01/15/17 10:45 96 158/99 01/15/17 09:04 95 21 01/15/17 06:00 81 01/15/17 04:00 100.0 81 18 146/96 (113) 96 01/15/17 04:00 81 01/15/17 02:00 125 01/15/17 00:00 81 01/15/17 00:00 100.0 81 18 130/86 (101) 100 01/14/17 22:00 81 01/14/17 21:40 92 178/103 10/25/17 20:20 99 Nasal Cannula 2.00 01/14/17 20:00 116 01/14/17 20:00 99.4 116 35 193/119 (143) 91 01/14/17 18:00 113 01/14/17 17:39 84 18 173/99 (123) 92 01/14/17 17:30 98.4 116 21 180/106 (130) 99 01/14/17 17:21 126 33 171/106 (127) 92 01/14/17 17:00 99 13 162/107 (125) 98 01/14/17 16:31 109 16 174/100 (124) 98 01/14/17 16:02 127 31 143/98 (113) 87 01/14/17 16:00 98.4 118 41 95 01/14/17 16:00 118 01/14/17 15:41 101 15 166/109 (128) 100 01/14/17 15:30 95 27 172/111 (131) 97 01/14/17 15:00 118 22 158/86 (110) 93 01/14/17 14:30 116 27 165/113 (130) 100 01/14/17 14:30 116 27 165/113 (130) 100 01/14/17 14:00 106 37 170/107 (128) 96 01/14/17 14:00 106 01/14/17 14:00 106 37 170/107 (128) 96 01/14/17 13:30 123 17 194/101 (132) 95 01/14/17 13:30 123 17 194/101 (132) 95 01/14/17 13:13 118 17 185/113 (137) 99 01/14/17 13:13 118 17 185/113 (137) 99 01/14/17 13:00 122 34 178/114 (135) 01/14/17 13:00 122 34 178/114 (135) 01/14/17 12:30 116 21 173/114 (133) 100 01/14/17 12:00 99.6 100 24 154/98 (116) 98 01/14/17 12:00 100 01/14/17 11:34 92 21 144/92 (109) 99 I/O 01/14/17 01/14/17 01/14/17 01/15/17 01/15/1726/17 07:00 15:00 23:00 07:00 15:00 23:00 Intake Total 50 ml 805 ml 2246 ml Output Total 1500 ml 1150 ml 650 ml Balance -1450 ml -345 ml 1596 ml Intake Oral 50 ml 480 ml 500 ml IV Total 325 ml 1746 ml Output Urine Total 1500 ml 1150 ml 650 ml # Bowel Movements 0 0 0 Physical Exam GENERAL: Well developed, well nourished. No acute distress. HEENT: Jugular venous pressure is normal. CHEST: Lungs clear to auscultation bilaterally. Unlabored respiratory effort. CARDIAC: Tachycardic rhythm without S3, S4, or murmur. ABDOMEN: Soft, nontender, no hepatosplenomegaly. Bowel sounds present. EXTREMITIES: No clubbing, cyanosis, or edema. Laboratory Laboratory Tests Test 01/15/17 06:39 01/15/17 07:20 White Blood Count 10.6 TH/MM3 Red Blood Count 3.71 MIL/MM3 Hemoglobin 11.0 GM/DL Hematocrit 32.9 % Mean Corpuscular Volume 88.7 FL Mean Corpuscular Hemoglobin 29.8 PG Mean Corpuscular Hemoglobin Concent 33.6 % Red Cell Distribution Width 14.4 % Platelet Count 116 TH/MM3 Mean Platelet Volume 9.2 FL Neutrophils (%) (Auto) 80.7 % Lymphocytes (%) (Auto) 8.3 % Monocytes (%) (Auto) 10.0 % Eosinophils (%) (Auto) 0.8 % Basophils (%) (Auto) 0.2 % Neutrophils # (Auto) 8.6 TH/MM3 Lymphocytes # (Auto) 0.9 TH/MM3 Monocytes # (Auto) 1.1 TH/MM3 Eosinophils # (Auto) 0.1 TH/MM3 Basophils # (Auto) 0.0 TH/MM3 CBC Comment DIFF FINAL Differential Comment Blood Urea Nitrogen 21 MG/DL Creatinine 1.92 MG/DL Random Glucose 145 MG/DL Calcium Level 7.5 MG/DL Sodium Level 142 MEQ/L Potassium Level 3.4 MEQ/L Chloride Level 107 MEQ/L Carbon Dioxide Level 26.3 MEQ/L Anion Gap 9 MEQ/L Estimat Glomerular Filtration Rate 44 ML/MIN Urine Color YELLOW Urine Turbidity CLEAR Urine pH 6.5 Urine Specific [place] 1.017 Urine Protein 100 mg/dL Urine Glucose (UA) NEG mg/dL Urine Ketones 10 mg/dL Urine Occult Blood SMALL Urine Nitrite NEG Urine Bilirubin NEG Urine Urobilinogen 2.0 MG/DL Urine Leukocyte Esterase NEG Urine RBC 10 /hpf Urine WBC 3 /hpf Urine Squamous Epithelial Cells <1 /hpf Urine Amorphous Sediment OCC Urine Bacteria RARE /hpf Urine Mucus FEW /lpf Microscopic Urinalysis Comment CULT NOT INDICATED Imaging Last 24 hours Impressions Chest X-Ray 01/14/17 1114 Signed Impressions: Service Date/Time: Thursday, January 14, 2017 11:54 - CONCLUSION: 1. Compensated cardiomegaly. 2. Minimal bibasilar airspace disease, likely atelectasis. 3. No significant interval change. Johnathon Ramon MD Assessment and Plan Problem List: (1) Atrial flutter ICD Codes: I48.92 - Unspecified atrial flutter Status: Acute Plan: Remains in atrial flutter, HR's elevated mostly though patient nauseated , vomiting medications. Patient otherwise asymptomatic from the arrhythmia. Left ventricular function by echo normal. With his history of CVA, hypertension , diabetes, his thromboembolic risk is at least moderately elevated. REC change metoprolol and Cardizem to IV until his N/V has resolved when able to better take oral med, start warfarin (2) Elevated troponin ICD Codes: R74.8 - Abnormal levels of other serum enzymes Status: Acute Plan: No angina like symptoms recently. Normal LV function by echo, recent non -ischemic nuclear stress; likely due to his renal failure, anemia, and metabolic derangements. Code Status full code Discussed Condition With patient Problem Qualifiers (1) Atrial flutter: Qualified Codes: I48.3 - Typical atrial flutter Nikolay Oliveros MD Jan 15, 2017 11:08
[2017-01-15] MEDS ORDERED: HEPARIN - 10,000 UNITS/ML IV ADDITIVE IV PUSH STA ×2 (11:11→15:45)
[2017-01-15] MEDS ORDERED: HEPARIN-D5W 25,000 U/250 ML 250 ML IV PRN (11:15)
[2017-01-15] MEDS: METOPROLOL TARTRATE 5 MG/5 ML VIAL IV PUSH SCH ×4 (12:04→23:57)
--- NOTE | 2017-01-15 14:27 | HHI.NPPN ---
Subjective History of Present Illness 56-year-old male with past medical history of chronic kidney disease, diabetes mellitus, history of cerebrovascular accident with hemiparesis, ischemic heart disease, hypertension, atrial fibrillation who came to the hospital with generalized weakness and dizziness. I was called to see the patient because of very high BUN and creatinine, metabolic acidosis and hyperkalemia. The patient has known history of chronic kidney disease and his baseline creatinine seems to me in the range of 1.6 to 2.2. Additional Remarks Patient is alert, . not in distress. Review of Systems General Constitutional: Fatigue Cardiovascular Cardiac: RODRÍGUEZ Objective Data Data Vital Signs Date Time Temp Pulse Resp B/P (MAP) Pulse Ox O2 Delivery O2 Flow Rate FiO2 01/15/17 10:45 96 158/99 01/15/17 09:04 95 21 01/15/17 08:00 80 01/15/17 08:00 99.0 82 20 167/108 (127) 97 01/15/17 06:00 81 01/15/17 04:00 100.0 81 18 146/96 (113) 96 01/15/17 04:00 81 01/15/17 02:00 125 01/15/17 00:00 81 01/15/17 00:00 100.0 81 18 130/86 (101) 100 01/14/17 22:00 81 01/14/17 21:40 92 178/103 01/14/17 20:20 99 Nasal Cannula 2.00 01/14/17 20:00 116 01/14/17 20:00 99.4 116 35 193/119 (143) 91 01/14/17 18:00 113 01/14/17 17:39 84 18 173/99 (123) 92 01/14/17 17:30 98.4 116 21 180/106 (130) 99 01/14/17 17:21 126 33 171/106 (127) 92 01/14/17 17:00 99 13 162/107 (125) 98 01/14/17 16:31 109 16 174/100 (124) 98 01/14/17 16:02 127 31 143/98 (113) 87 01/14/17 16:00 98.4 118 41 95 01/14/17 16:00 118 01/14/17 15:41 101 15 166/109 (128) 100 01/14/17 15:30 95 27 172/111 (131) 97 01/14/17 15:00 118 22 158/86 (110) 93 01/14/17 14:30 116 27 165/113 (130) 100 01/14/17 14:30 116 27 165/113 (130) 100 -: 01/15/17 0639 01/15/17 0639 Physical Exam General Appearance: No Acute Distress, Comfortable, Anxious Throat Throat Exam: Oral Mucosa [place] & Moist Pulmonary Resp Exam: Breath Sounds Equal, No Distress, Rhonchi, Decreased Bases, Diminished Breath Sounds Cardiology CV Exam: Regular, Normal Sinus Rhythm Gastrointestinal/Abdomen GI Exam: Soft, Non-Tender, Bowel Sounds Present Extremeties Extremities Exam: Trace Edema Neurologic Neuro Exam: Alert, Awake Assessment/Plan Assessment Summary: ABNER/Acute Renal Failure, CKD Stage III Electrolyte Assessment: Hyperkalemia, Hypocalcemia, Metabolic Acidosis Problem List: (1) History of CVA (cerebrovascular accident) ICD Codes: Z86.73 - Personal history of transient ischemic attack (TIA), and cerebral infarction without residual deficits (2) HTN (hypertension) ICD Codes: I10 - Essential (primary) hypertension Status: Acute (3) Diabetes ICD Codes: E11.9 - Type 2 diabetes mellitus without complications Status: Acute (4) Metabolic acidemia ICD Codes: E87.2 - Acidosis (5) Hyperkalemia ICD Codes: E87.5 - Hyperkalemia Status: Acute (6) Acute renal failure ICD Codes: N17.9 - Acute kidney failure, unspecified Status: Acute Plan Patient has chronic kidney disease and develop ABNER. Also has metabolic acidosis and Hyperkalemia. Patient has HD done Thursday and then started resolving ARF ATN resolving Cr declining cr 1.9, K was replace Na 142 remove Vascath Problem Qualifiers (1) HTN (hypertension): Qualified Codes: I10 - Essential (primary) hypertension (2) Diabetes: (3) Acute renal failure: Qualified Codes: N17.9 - Acute kidney failure, unspecified Parth Ruiz MD Jan 15, 2017 14:27
[2017-01-15 15:07] LABS: APTT (PATIENT) 27.4 SEC (24.3-30.1)
[2017-01-15 16:44] LABS: INTERNATIONAL NORMALIZED RATIO 1.3 RATIO
[2017-01-15] MEDS ORDERED: HEPARIN SODIUM - IV 10,000 UNITS/10 ML VIAL IV PUSH PRN (17:15)
[2017-01-15] MEDS ORDERED: HEPARIN - 10,000 UNITS/ML IV ADDITIVE IV PUSH PRN (17:15)
[2017-01-15 20:52] LABS: APTT (PATIENT) 37.5 SEC (24.3-30.1)
[2017-01-15] MEDS: ATORVASTATIN 80 MG TAB PO SCH (21:11)
[2017-01-16] VITALS (14 sets, daily range): BP systolic 139–186; BP diastolic 80–119; PULSE 86–126; RESP 16–24; TEMP 98–99.8; O2SAT 97–100
[2017-01-16] MEDS: INSULIN ASPART SUPPLEMENTAL SCALE SQ SCH ×6 (01:00→21:00)
[2017-01-16] MEDS: SODIUM CHLORIDE 23.4% INJ 38.5 MEQ in WATER STERILE FOR INJ 1,000 ML IV SCH ×2 (02:06→17:13)
[2017-01-16] MEDS: POTASSIUM CHLOR 20 MEQ PREMIX 100 ML IV SCH ×5 (02:07→10:00)
[2017-01-16] MEDS: METOCLOPRAMIDE HCL 10 MG/2 ML VIAL IV PUSH SCH ×4 (02:07→18:11)
[2017-01-16 03:58] LABS: HEMATOCRIT 34.4 % (39.0-51.0); MEAN CELL VOLUME 89.1 FL (80.0-100.0); MEAN CORPUSCULAR HGB CONC 32.5 % (32.0-36.0); PLATELET COUNT 123 TH/MM3 (150-450); RED BLOOD COUNT 3.86 MIL/MM3 (4.50-5.90); RED CELL DISTRIBUTION WIDTH 14.5 % (11.6-17.2); REVIEW FLAG FINAL; WHITE BLOOD COUNT 12.4 TH/MM3 (4.0-11.0)
[2017-01-16] MEDS: CHLORHEXIDINE GLUCONATE 2 % 1 PACK (2 CLOTHS) TOP SCH (04:00)
[2017-01-16 04:04] LABS: APTT (PATIENT) 30.5 SEC (24.3-30.1)
[2017-01-16 04:27] LABS: BICARBONATE 24.2 MEQ/L (21.0-32.0); POTASSIUM 4.3 MEQ/L (3.5-5.1)
[2017-01-16 04:43] LABS: CALCIUM-PROTEIN CORRECTED 7.1 MG/DL (8.5-10.1)
[2017-01-16] MEDS: METOPROLOL TARTRATE 5 MG/5 ML VIAL IV PUSH SCH ×7 (04:43→23:17)
[2017-01-16] MEDS: DILTIAZEM INJ 125 MG in SODIUM CHLORIDE 0.9% INJ 100 ML IV PRN ×2 (07:14→23:17)
[2017-01-16] MEDS: ONDANSETRON HCL 4 MG/2 ML VIAL IV PUSH PRN (08:47)
[2017-01-16] MEDS: SODIUM CHLORIDE 0.9% FLUSH 10 ML FLUSH IV FLUSH SCH ×2 (09:00→21:53)
[2017-01-16] MEDS: DOCUSATE SODIUM 50 MG/SENNA 8.6 MG TAB PO SCH ×2 (09:00→21:53)
[2017-01-16] MEDS: ASPIRIN EC 81 MG TABEC PO SCH (09:00)
--- NOTE | 2017-01-16 09:16 | PD.CARD.PN ---
Subjective Subjective Remarks Denies CP, palpitations, dizziness, dyspnea. Nausea better. Objective Medications Item Value Date Time Diltiazem HCl 125 125 ml @ 15 mls/hr 01/15/17 1730 mg/Sodium Chloride TITRATE PRN/IV 01/16/17 0714 Metoprolol 5 mg 01/15/17 1200 Tartrate Q4H/IV PUSH 01/16/17 0848 (Lopressor Inj) Hydralazine HCl 10 mg 01/15/17 1000 (Apresoline Inj) Q4H PRN/IV PUSH Potassium Chloride 100 ml @ 50 mls/hr 01/15/17 1000 Atorvastatin 80 mg 01/10/17 2100 Calcium HS/PO 01/15/17 2111 (Lipitor) Aspirin 81 mg 01/10/17 1700 (Ecotrin Ec) DAILY/PO 01/15/17 0848 Heparin Sodium/ 250 ml @ 10 mls/hr 01/15/17 1600 Dextrose TITRATE PRN/IV Current Medications Medications (Trade) Dose Ordered Sig/Mansi Route Start Time Stop Time Status Last Admin (Tylenol) 650 mg Q6H PRN PO 01/10/17 17:00 (Proair Hfa Inh) 2 puff Q6H PRN INH 01/10/17 17:00 (Lipitor) 80 mg HS PO 01/10/17 21:00 01/15/17 21:11 (Nitrostat Sl) 0.4 mg Q3H PRN SL 01/10/17 17:00 (Ecotrin Ec) 81 mg DAILY PO 01/10/17 17:00 01/15/17 08:48 (NovoLOG SUPPLEMENTAL SCALE) 1 Q4H SQ 01/10/17 17:00 01/15/17 17:00 (NS Flush) 2 ml BID IV FLUSH 01/10/17 21:00 01/15/17 21:11 Miscellaneous Information 1 Q361D XX 01/10/17 17:15 (Chlorhexidine 2% Cloth) Taper DAILY@04 TOP 01/11/17 04:00 01/07/18 03:59 01/16/17 04:00 (Chlorhexidine 2% Cloth) 3 pack UNSCH PRN TOP 01/10/17 17:15 (Afia-Colace) 1 tab BID PO 01/10/17 21:00 01/15/17 21:12 (Milk Of Magnesia Liq) 30 ml Q12H PRN PO 01/10/17 17:15 (Senokot) 17.2 mg Q12H PRN PO 01/10/17 17:15 (Dulcolax Supp) 10 mg DAILY PRN RECTAL 01/10/17 17:15 (Lactulose Liq) 30 ml DAILY PRN PO 01/10/17 17:15 Sodium Chloride 1,000 ml @ 0 mls/hr Q0M PRN OTHER 01/10/17 17:47 01/10/17 22:05 (Heparin Inj) 8,000 units UNSCH PRN IV FLUSH 01/10/17 18:00 Sodium Chloride 1,000 ml @ 200 mls/hr Q5H PRN IV 01/10/17 17:47 Sodium Chloride 1,000 ml @ 0 mls/hr Q0M PRN OTHER 01/10/17 17:47 (Mannitol Inj) 12.5 gm UNSCH PRN IV 01/10/17 18:00 Albumin Human 100 ml @ 60 mls/hr UNSCH PRN IV 01/10/17 18:00 (NS Flush) 5 ml UNSCH PRN IV FLUSH 01/10/17 18:00 (Heparin Inj) UNSCH PRN .XX 01/10/17 18:00 (Gentamicin (Dialysis) Inj) 20 mg UNSCH PRN OTHER 01/10/17 18:00 01/10/17 22:03 (Zofran Inj) 4 mg UNSCH PRN IV PUSH 01/10/17 18:00 01/16/17 08:47 (Tylenol) 650 mg UNSCH PRN PO 01/10/17 18:00 (Benadryl) 25 mg UNSCH PRN PO 01/10/17 18:00 (Nitrostat Sl) 0.4 mg UNSCH PRN SL 01/10/17 18:00 (Catapres) 0.1 mg UNSCH PRN PO 01/10/17 18:00 01/15/17 02:07 (Gelfoam 12 Mm/7 Mm Top) 1 foam UNSCH PRN TOP 01/10/17 18:00 (D50w (Vial) Inj) 50 ml UNSCH PRN IV PUSH 01/10/17 22:30 01/10/17 18:05 (Glucagon Inj) 1 mg UNSCH PRN OTHER 01/10/17 22:30 Dexmedetomidine HCl 200 mcg/ Sodium Chloride 52 ml @ 5.46 mls/hr TITRATE PRN IV 01/11/17 00:00 01/12/17 14:53 (Haldol Inj) 5 mg Q4H PRN IV 01/12/17 17:00 Sodium Chloride 38.5 meq/Sterile Water 1,009.625 ml @ 84 mls/hr Q12H2M IV 01/13/17 15:00 01/16/17 02:06 (Reglan Inj) 5 mg Q8H IV PUSH 01/15/17 10:00 01/16/17 02:07 (Apresoline Inj) 10 mg Q4H PRN IV PUSH 01/15/17 10:00 Potassium Chloride 100 ml @ 50 mls/hr Q2H IV 01/15/17 10:00 01/16/17 06:11 Diltiazem HCl 125 mg/Sodium Chloride 125 ml @ 15 mls/hr TITRATE PRN IV 01/15/17 17:30 01/16/17 07:14 (Lopressor Inj) 5 mg Q4H IV PUSH 01/15/17 12:00 01/16/17 08:48 (Heparin Inj) 5,000 units UNSCH PRN IV PUSH 01/15/17 17:15 (Heparin Inj) 2,500 units UNSCH PRN IV PUSH 01/15/17 17:15 01/16/17 06:17 Heparin Sodium/ Dextrose 250 ml @ 10 mls/hr TITRATE PRN IV 01/15/17 16:00 Vital Signs / I&O Vital Signs Date Time Temp Pulse Resp B/P (MAP) Pulse Ox O2 Delivery O2 Flow Rate FiO2 01/16/17 08:16 99 21 01/16/17 07:14 116 175/114 01/16/17 06:00 102 01/16/17 04:00 113 01/16/17 04:00 99.1 113 18 166/99 (121) 100 01/16/17 02:00 99 01/16/17 00:00 90 01/16/17 00:00 99.2 90 16 176/109 (131) 100 01/15/17 22:00 78 01/15/17 20:00 99.0 78 18 154/90 (111) 100 01/15/17 20:00 78 01/15/17 19:39 97 Nasal Cannula 2.00 01/15/17 18:00 77 01/15/17 16:00 80 01/15/17 16:00 99.2 79 20 155/95 (115) 97 01/15/17 14:00 84 01/15/17 12:00 98.9 80 20 141/93 (109) 97 01/15/17 12:00 80 01/15/17 10:45 96 158/99 01/15/17 10:00 112 I/O 01/15/17 01/15/17 01/15/17 01/16/17 01/16/17 01/16/17 07:00 15:00 23:00 07:00 15:00 23:00 Intake Total 2246 ml 1917 ml 560 ml Output Total 650 ml 650 ml 500 ml Balance 1596 ml 1267 ml 60 ml Intake Oral 500 ml 600 ml 60 ml IV Total 1746 ml 1317 ml 500 ml Output Urine Total 650 ml 650 ml 500 ml # Bowel Movements 0 1 Physical Exam GENERAL: Well developed, well nourished. No acute distress. HEENT: Jugular venous pressure is normal. CHEST: Lungs clear to auscultation bilaterally. Unlabored respiratory effort. CARDIAC: Tachycardic irregular rhythm without S3, S4, or murmur. ABDOMEN: Soft, nontender, no hepatosplenomegaly. Bowel sounds present. EXTREMITIES: No clubbing, cyanosis, or edema. Laboratory Laboratory Tests Test 01/15/17 12:20 01/15/17 14:47 01/15/17 20:34 01/16/17 03:29 Magnesium Level 1.1 MG/DL 1.0 MG/DL Prothrombin Time 14.0 SEC Prothromb Time International Ratio 1.3 RATIO Activated Partial Thromboplast Time 27.4 SEC 37.5 SEC 30.5 SEC White Blood Count 12.4 TH/MM3 Red Blood Count 3.86 MIL/MM3 Hemoglobin 11.2 GM/DL Hematocrit 34.4 % Mean Corpuscular Volume 89.1 FL Mean Corpuscular Hemoglobin 29.0 PG Mean Corpuscular Hemoglobin Concent 32.5 % Red Cell Distribution Width 14.5 % Platelet Count 123 TH/MM3 Mean Platelet Volume 8.8 FL Blood Urea Nitrogen 19 MG/DL Creatinine 1.90 MG/DL Random Glucose 153 MG/DL Total Protein 7.0 GM/DL Calcium Level 7.0 MG/DL Sodium Level 139 MEQ/L Potassium Level 4.3 MEQ/L Chloride Level 108 MEQ/L Carbon Dioxide Level 24.2 MEQ/L Anion Gap 7 MEQ/L Estimat Glomerular Filtration Rate 45 ML/MIN Protein Corrected Calcium 7.1 MG/DL Assessment and Plan Problem List: (1) Atrial flutter ICD Codes: I48.92 - Unspecified atrial flutter Status: Acute Plan: Remains in atrial flutter, HR's mildly elevated mostly this morning. Patient otherwise asymptomatic from the arrhythmia. Left ventricular function by echo normal. With his history of CVA, hypertension, diabetes, his thromboembolic risk is at least moderately elevated. REC continue IV Cardizem, IV metoprolol until patient definitely can hold down oral medications when able to better take oral med, start warfarin Dr. Gurrola to see patient PRN over the weekend (2) Elevated troponin ICD Codes: R74.8 - Abnormal levels of other serum enzymes Status: Acute Plan: No angina like symptoms recently. Normal LV function by echo, recent non -ischemic nuclear stress; likely due to his renal failure, anemia, and metabolic derangements. (3) HTN (hypertension) ICD Codes: I10 - Essential (primary) hypertension Status: Chronic Plan: Suboptimal BP control. Rec add Catapres patch. Code Status full code Discussed Condition With patient Problem Qualifiers (1) Atrial flutter: Qualified Codes: I48.3 - Typical atrial flutter (2) HTN (hypertension): Qualified Codes: I10 - Essential (primary) hypertension Nikolay Oliveros MD Jan 16, 2017 09:16
--- NOTE | 2017-01-16 09:26 | HHI.PR ---
Subjective Remarks CONTINUES TO HAVE NAUSEA AND VOMITING HAS NOT KEPT ANYTHING DOWN UNTIL TODAY YET DW RN AND PT AM LABS PT AND OT Objective Vitals Vital Signs Date Time Temp Pulse Resp B/P (MAP) Pulse Ox O2 Delivery O2 Flow Rate FiO2 01/16/17 08:16 99 21 01/16/17 07:14 116 175/114 01/16/17 06:00 102 01/16/17 04:00 113 01/16/17 04:00 99.1 113 18 166/99 (121) 100 01/16/17 02:00 99 01/16/17 00:00 90 01/16/17 00:00 99.2 90 16 176/109 (131) 100 01/15/17 22:00 78 01/15/17 20:00 99.0 78 18 154/90 (111) 100 01/15/17 20:00 78 01/15/17 19:39 97 Nasal Cannula 2.00 01/15/17 18:00 77 01/15/17 16:00 80 01/15/17 16:00 99.2 79 20 155/95 (115) 97 01/15/17 14:00 84 01/15/17 12:00 98.9 80 20 141/93 (109) 97 01/15/17 12:00 80 01/15/17 10:45 96 158/99 01/15/17 10:00 112 I/O 01/15/17 01/15/17 01/15/17 01/16/17 01/16/17 01/16/17 07:00 15:00 23:00 07:00 15:00 23:00 Intake Total 2246 ml 1917 ml 560 ml Output Total 650 ml 650 ml 500 ml Balance 1596 ml 1267 ml 60 ml Intake Oral 500 ml 600 ml 60 ml IV Total 1746 ml 1317 ml 500 ml Output Urine Total 650 ml 650 ml 500 ml # Bowel Movements 0 1 Result Diagram: 01/16/17 0329 01/16/17 0329 Other Results Laboratory Tests Test 01/14/17 05:29 01/15/17 06:39 01/15/17 07:20 01/15/17 12:20 White Blood Count 10.3 TH/MM3 10.6 TH/MM3 Red Blood Count 4.04 MIL/MM3 3.71 MIL/MM3 Hemoglobin 12.1 GM/DL 11.0 GM/DL Hematocrit 36.0 % 32.9 % Mean Corpuscular Volume 89.1 FL 88.7 FL Mean Corpuscular Hemoglobin 29.8 PG 29.8 PG Mean Corpuscular Hemoglobin Concent 33.5 % 33.6 % Red Cell Distribution Width 14.6 % 14.4 % Platelet Count 133 TH/MM3 116 TH/MM3 Mean Platelet Volume 9.0 FL 9.2 FL Blood Urea Nitrogen 30 MG/DL 21 MG/DL Creatinine 2.22 MG/DL 1.92 MG/DL Random Glucose 118 MG/DL 145 MG/DL Calcium Level 8.1 MG/DL 7.5 MG/DL Sodium Level 144 MEQ/L 142 MEQ/L Potassium Level 3.3 MEQ/L 3.4 MEQ/L Chloride Level 110 MEQ/L 107 MEQ/L Carbon Dioxide Level 27.1 MEQ/L 26.3 MEQ/L Anion Gap 7 MEQ/L 9 MEQ/L Estimat Glomerular Filtration Rate 37 ML/MIN 44 ML/MIN Neutrophils (%) (Auto) 80.7 % Lymphocytes (%) (Auto) 8.3 % Monocytes (%) (Auto) 10.0 % Eosinophils (%) (Auto) 0.8 % Basophils (%) (Auto) 0.2 % Neutrophils # (Auto) 8.6 TH/MM3 Lymphocytes # (Auto) 0.9 TH/MM3 Monocytes # (Auto) 1.1 TH/MM3 Eosinophils # (Auto) 0.1 TH/MM3 Basophils # (Auto) 0.0 TH/MM3 CBC Comment DIFF FINAL Differential Comment Urine Color YELLOW Urine Turbidity CLEAR Urine pH 6.5 Urine Specific [place] 1.017 Urine Protein 100 mg/dL Urine Glucose (UA) NEG mg/dL Urine Ketones 10 mg/dL Urine Occult Blood SMALL Urine Nitrite NEG Urine Bilirubin NEG Urine Urobilinogen 2.0 MG/DL Urine Leukocyte Esterase NEG Urine RBC 10 /hpf Urine WBC 3 /hpf Urine Squamous Epithelial Cells <1 /hpf Urine Amorphous Sediment OCC Urine Bacteria RARE /hpf Urine Mucus FEW /lpf Microscopic Urinalysis Comment CULT NOT INDICATED Magnesium Level 1.1 MG/DL Test 01/15/17 14:47 01/15/17 20:34 01/16/17 03:29 Prothrombin Time 14.0 SEC Prothromb Time International Ratio 1.3 RATIO Activated Partial Thromboplast Time 27.4 SEC 37.5 SEC 30.5 SEC White Blood Count 12.4 TH/MM3 Red Blood Count 3.86 MIL/MM3 Hemoglobin 11.2 GM/DL Hematocrit 34.4 % Mean Corpuscular Volume 89.1 FL Mean Corpuscular Hemoglobin 29.0 PG Mean Corpuscular Hemoglobin Concent 32.5 % Red Cell Distribution Width 14.5 % Platelet Count 123 TH/MM3 Mean Platelet Volume 8.8 FL Blood Urea Nitrogen 19 MG/DL Creatinine 1.90 MG/DL Random Glucose 153 MG/DL Total Protein 7.0 GM/DL Calcium Level 7.0 MG/DL Magnesium Level 1.0 MG/DL Sodium Level 139 MEQ/L Potassium Level 4.3 MEQ/L Chloride Level 108 MEQ/L Carbon Dioxide Level 24.2 MEQ/L Anion Gap 7 MEQ/L Estimat Glomerular Filtration Rate 45 ML/MIN Protein Corrected Calcium 7.1 MG/DL Imaging Last Impressions Chest X-Ray 01/14/17 1114 Signed Impressions: Service Date/Time: Saturday, January 14, 2017 11:54 - CONCLUSION: 1. Compensated cardiomegaly. 2. Minimal bibasilar airspace disease, likely atelectasis. 3. No significant interval change. Johnathon Ramon MD Head CT 01/10/17 1257 Signed Impressions: Service Date/Time: Tuesday, January 10, 2017 13:32 - CONCLUSION: No acute disease. Jermaine Malone Jr., MD Renal Ultrasound 01/10/17 0000 Signed Impressions: Service Date/Time: Tuesday, January 10, 2017 17:01 - CONCLUSION: Normal examination. Jermaine Malone Jr., MD Objective Remarks GENERAL: AWAKE ALERT AND ORIENTED TALKATIVE AND COOPERATIVE SKIN: Warm and dry. HEAD: Atraumatic. Normocephalic. EYES: Pupils equal and round. No scleral icterus. No injection or drainage. EOMI ENT: No nasal bleeding or discharge. Mucous membranes pink and moist. TONGUE IS MIDLINE NECK: Trachea midline. No JVD. SUPPLE CARDIOVASCULAR: Regular rate and rhythm. S1, S2 NO S3 OR S4 RESPIRATORY: No accessory muscle use. Clear to auscultation. Breath sounds equal bilaterally. GASTROINTESTINAL: Abdomen soft, non-tender, nondistended. Hepatic and splenic margins not palpable. MUSCULOSKELETAL: Extremities without clubbing, cyanosis, or edema. No obvious deformities. NEUROLOGICAL: Awake and alert. No obvious cranial nerve deficits. Motor grossly within normal limits. Five out of 5 muscle strength in the arms and legs. Normal speech. PSYCHIATRIC: Appropriate mood and affect; insight and judgment normal. Medications and IVs Current Medications Meclizine HCl (Antivert) 25 mg ONCE ONCE PO Last administered on 01/10/17 13 :42; Start 01/10/17 at 13:00; Stop 01/10/17 at 13:01; Status DC Sodium Chloride (NS Flush) 2 ml UNSCH PRN IVF FLUSH AFTER USING IV ACCESS; Start 01/10/17 at 13:00; Stop 01/10/17 at 22:25; Status DC Acetaminophen (Tylenol) 650 mg ONCE ONCE PO Last administered on 01/10/17 14 :07; Start 01/10/17 at 14:00; Stop 01/10/17 at 14:01; Status DC Insulin Human Regular (NovoLIN R INJ) 10 units ONCE ONCE IV PUSH Last administered on 01/10/17 16:14; Start 01/10/17 at 16:00; Stop 01/10/17 at 16 :01; Status DC Dextrose (D50w (Syr) Inj) 25 ml ONCE ONCE IV PUSH Last administered on 16:10; Start 01/10/17 at 16:00; Stop 01/10/17 at 16:01; Status DC Calcium Gluconate (Calcium Gluconate Inj) 1 gm ONCE ONCE IV PUSH Last administered on 01/10/17 16:09; Start 01/10/17 at 16:00; Stop 01/10/17 at 16 :01; Status DC Sodium Polystyrene Sulfonate (Kayexalate Liq) 15 gm ONCE ONCE PO ; Start 01/10 at 16:00; Stop 01/10/17 at 16:01; Status DC Sodium Bicarbonate 200 meq/Sodium Chloride 1,200 ml @ 100 mls/hr Q12H IV ; Start 01/10/17 at 16:15; Stop 01/11/17 at 14:47; Status DC Sodium Chloride 1,000 ml @ 999 mls/hr BOLUS ONCE IV Last administered on 16:43; Start 01/10/17 at 16:15; Stop 01/10/17 at 17:15; Status DC Sodium Chloride 1,000 ml @ 999 mls/hr BOLUS ONCE IV Last administered on 16:44; Start 01/10/17 at 16:15; Stop 01/10/17 at 17:15; Status DC Sodium Bicarbonate (Sodium Bicarbonate 8.4% Inj) 50 meq STK-MED ONCE .ROUTE ; Start 01/10/17 at 16:23; Stop 01/10/17 at 16:43; Status DC Sodium Bicarbonate 200 meq/Sterile Water 1,050 ml @ 150 mls/hr Q7H IV Last administered on 01/11/17 08:22; Start 01/10/17 at 16:45; Stop 01/11/17 at 14 :47; Status DC Sodium Chloride 1,000 ml @ 999 mls/hr BOLUS ONCE IV Last administered on 17:23; Start 01/10/17 at 17:00; Stop 01/10/17 at 18:00; Status DC Sodium Chloride 1,000 ml @ 999 mls/hr BOLUS ONCE IV Last administered on 17:23; Start 01/10/17 at 17:00; Stop 01/10/17 at 18:00; Status DC Sodium Chloride 1,000 ml @ 999 mls/hr BOLUS ONCE IV Last administered on 17:40; Start 01/10/17 at 17:00; Stop 01/10/17 at 18:00; Status DC Acetaminophen (Tylenol) 650 mg Q6H PRN PO PAIN SCALE 1 TO 4; Start 01/10/17 at 17:00 Albuterol Sulfate (Proair Hfa Inh) 2 puff Q6H PRN INH SHORTNESS OF BREATH; Start 01/10/17 at 17:00 Atorvastatin Calcium (Lipitor) 80 mg HS PO Last administered on 01/15/17 21: 11; Start 01/10/17 at 21:00 Nitroglycerin (Nitrostat Sl) 0.4 mg Q3H PRN SL CHEST PAIN; Start 01/10/17 at 17:00 Aspirin (Ecotrin Ec) 81 mg DAILY PO Last administered on 01/15/17 08:48; Start 01/10/17 at 17:00 Heparin Sodium/ Dextrose 250 ml @ 10 mls/hr TITRATE PRN IV Coagulation management Last administered on 01/11/17 01:03; Start 01/10/17 at 17:00; Stop 01/11/17 at 17:15; Status DC Insulin Aspart (NovoLOG SUPPLEMENTAL SCALE) 1 Q4H SQ Last administered on 01/15 17:00; Start 01/10/17 at 17:00 Sodium Chloride (NS Flush) 2 ml UNSCH PRN IV FLUSH FLUSH AFTER USING IV ACCESS ; Start 01/10/17 at 17:15; Stop 01/11/17 at 14:50; Status DC Sodium Chloride (NS Flush) 2 ml BID IV FLUSH Last administered on 01/15/17 21 :11; Start 01/10/17 at 21:00 Pantoprazole Sodium (Protonix) 40 mg DAILY PO ; Start 01/11/17 at 09:00; Stop 01/11/17 at 17:15; Status DC Miscellaneous Information 1 Q361D XX ; Start 01/10/17 at 17:15 Chlorhexidine Gluconate (Chlorhexidine 2% Cloth) Taper DAILY@04 TOP Last administered on 01/16/17 04:00; Start 01/11/17 at 04:00; Stop 01/07/18 at 03 :59 Chlorhexidine Gluconate (Chlorhexidine 2% Cloth) 3 pack UNSCH PRN TOP HYGIENIC CARE; Start 01/10/17 at 17:15 Senna/Docusate Sodium (Afia-Colace) 1 tab BID PO Last administered on 21:12; Start 01/10/17 at 21:00 Magnesium Hydroxide (Milk Of Magnesia Liq) 30 ml Q12H PRN PO Mild constipation ; Start 01/10/17 at 17:15 Sennosides (Senokot) 17.2 mg Q12H PRN PO Moderate constipation; Start at 17:15 Bisacodyl (Dulcolax Supp) 10 mg DAILY PRN RECTAL SEVERE CONSITIPATION; Start 01/10/17 at 17:15 Lactulose (Lactulose Liq) 30 ml DAILY PRN PO SEVERE CONSITIPATION; Start 01/10 at 17:15 Sodium Bicarbonate 0 ml @ As Directed STK-MED ONCE .ROUTE ; Start 01/10/17 at 17:23; Stop 01/10/17 at 17:24; Status DC Sodium Bicarbonate (Sodium Bicarbonate 8.4% Inj) 50 meq STK-MED ONCE .ROUTE ; Start 01/10/17 at 17:23; Stop 01/10/17 at 17:24; Status DC Sodium Chloride 1,000 ml @ 0 mls/hr Q0M PRN OTHER For Prime & Rinse Back Last administered on 01/10/17 22:05; Start 01/10/17 at 17:47 Heparin Sodium (Porcine) (Heparin Inj) 8,000 units UNSCH PRN IV FLUSH WITH DIALYSIS; Start 01/10/17 at 18:00 Sodium Chloride 1,000 ml @ 200 mls/hr Q5H PRN IV WITH DIALYSIS; Start at 17:47 Sodium Chloride 1,000 ml @ 0 mls/hr Q0M PRN OTHER WITH DIALYSIS; Start at 17:47 Mannitol (Mannitol Inj) 12.5 gm UNSCH PRN IV WITH DIALYSIS; Start 01/10/17 at 18:00 Albumin Human 100 ml @ 60 mls/hr UNSCH PRN IV WITH DIALYSIS; Start 01/10/17 at 18:00 Sodium Chloride (NS Flush) 5 ml UNSCH PRN IV FLUSH WITH DIALYSIS; Start at 18:00 Heparin Sodium (Porcine) (Heparin Inj) UNSCH PRN .XX WITH DIALYSIS; Start at 18:00 Gentamicin Sulfate (Gentamicin (Dialysis) Inj) 20 mg UNSCH PRN OTHER WITH DIALYSIS Last administered on 01/10/17 22:03; Start 01/10/17 at 18:00 Ondansetron HCl (Zofran Inj) 4 mg UNSCH PRN IV PUSH WITH DIALYSIS Last administered on 01/16/17 08:47; Start 01/10/17 at 18:00 Acetaminophen (Tylenol) 650 mg UNSCH PRN PO for headach, pain, temp > 101F; Start 01/10/17 at 18:00 Diphenhydramine HCl (Benadryl) 25 mg UNSCH PRN PO for hives/itching/anaphylaxis ; Start 01/10/17 at 18:00 Nitroglycerin (Nitrostat Sl) 0.4 mg UNSCH PRN SL CHEST PAIN; Start 01/10/17 at 18:00 Clonidine (Catapres) 0.1 mg UNSCH PRN PO for BP > 180/100 X 2 readings Last administered on 01/15/17 02:07; Start 01/10/17 at 18:00 Gelatin (Gelfoam 12 Mm/7 Mm Top) 1 foam UNSCH PRN TOP SEE LABEL COMMENTS; Start 01/10/17 at 18:00 Dextrose (D50w (Vial) Inj) 50 ml UNSCH PRN IV PUSH HYPOGLYCEMIA-SEE COMMENTS Last administered on 01/10/17 18:05; Start 01/10/17 at 22:30 Glucagon (Glucagon Inj) 1 mg UNSCH PRN OTHER HYPOGLYCEMIA-SEE COMMENTS; Start 01/10/17 at 22:30 Dexmedetomidine HCl 200 mcg/ Sodium Chloride 52 ml @ 5.46 mls/hr TITRATE PRN IV SEDATION Last administered on 01/12/17 14:53; Start 01/11/17 at 00:00 Metoprolol Tartrate (Lopressor) 25 mg Q12HR PO Last administered on 01/15/17 08:48; Start 01/11/17 at 21:00; Stop 01/15/17 at 11:09; Status DC Metoprolol Tartrate (Lopressor Inj) 5 mg Q1HR PRN IV PUSH RAPID HEART RATE Last administered on 01/14/17 21:16; Start 01/11/17 at 11:15; Stop 01/15/17 at 11:09; Status DC Diltiazem HCl 125 mg/Sodium Chloride 125 ml @ 5 mls/hr TITRATE PRN IV Tachycardia Last administered on 01/15/17 10:45; Start 01/11/17 at 17:30; Stop 01/15/17 at 11:11; Status DC Sodium Chloride 1,000 ml @ 84 mls/hr [id number] IV Last administered on 01:04; Start 01/12/17 at 13:00; Stop 01/13/17 at 12:51; Status DC Haloperidol Lactate (Haldol Inj) 5 mg Q4H PRN IV agitation; Start 01/12/17 at 17:00 Diltiazem HCl (Cardizem) 60 mg Q6HR PO Last administered on 01/15/17 07:03; Start 01/13/17 at 06:00; Stop 01/15/17 at 11:09; Status DC Sodium Chloride 38.5 meq/Sterile Water 1,009.625 ml @ 84 mls/hr Q12H2M IV Last administered on 01/16/17 02:06; Start 01/13/17 at 15:00 Metoclopramide HCl (Reglan Inj) 5 mg Q8H PRN IV PUSH NAUSEA OR VOMITING Last administered on 01/14/17 22:57; Start 01/14/17 at 11:15; Stop 01/15/17 at 08 :56; Status DC Potassium Chloride 100 ml @ 50 mls/hr Q2H IV Last administered on 01/14/17 15:19; Start 01/14/17 at 12:00; Stop 01/14/17 at 15:59; Status DC Hydralazine HCl (Apresoline Inj) 20 mg ONCE ONCE IV PUSH Last administered on 01/14/17 22:58; Start 01/14/17 at 23:00; Stop 01/14/17 at 23:01; Status DC Metoclopramide HCl (Reglan Inj) 5 mg Q8H IV PUSH Last administered on 02:07; Start 01/15/17 at 10:00 Hydralazine HCl (Apresoline Inj) 10 mg Q4H PRN IV PUSH SYS BP GREATER THAN 160 MMHG; Start 01/15/17 at 10:00 Potassium Chloride 100 ml @ 100 mls/hr Q1H IV ; Start 01/15/17 at 10:00; Stop 01/15/17 at 10:00; Status DC Potassium Chloride 100 ml @ 50 mls/hr Q2H IV Last administered on 01/16/17 06:11; Start 01/15/17 at 10:00 Diltiazem HCl 125 mg/Sodium Chloride 125 ml @ 15 mls/hr TITRATE PRN IV Tachycardia Last administered on 01/16/17 07:14; Start 01/15/17 at 17:30 Metoprolol Tartrate (Lopressor Inj) 5 mg Q4H IV PUSH Last administered on 01/16 08:48; Start 01/15/17 at 12:00 Heparin Sodium (Porcine) (Heparin Inj) 4,000 units NOW STAT IV PUSH ; Start at 11:11; Stop 01/15/17 at 11:12; Status Cancel Heparin Sodium (Porcine) (Heparin Inj) 5,000 units UNSCH PRN IV PUSH APTT LESS THAN 25; Start 01/15/17 at 17:15 Heparin Sodium (Porcine) (Heparin Inj) 2,500 units UNSCH PRN IV PUSH APTT 25 TO 39 Last administered on 01/16/17t 06:17; Start 01/15/17 at 17:15 Heparin Sodium/ Dextrose 250 ml @ 10 mls/hr TITRATE PRN IV Coagulation management; Start 01/15/17 at 11:15; Status Cancel Heparin Sodium (Porcine) (Heparin Inj) 4,000 units NOW STAT IV PUSH Last administered on 01/15/17t 15:45; Start 01/15/17 at 15:45; Stop 01/15/17 at 15 :51; Status DC Heparin Sodium/ Dextrose 250 ml @ 10 mls/hr TITRATE PRN IV Coagulation management; Start 01/15/17 at 16:00 A/P Problem List: (1) Acute on chronic kidney failure ICD Code: N17.9 - Acute kidney failure, unspecified; N18.9 - Chronic kidney disease, unspecified (2) Combined metabolic and respiratory acidosis (3) Acute metabolic encephalopathy ICD Code: G93.41 - Metabolic encephalopathy (4) NSTEMI (non-ST elevated myocardial infarction) ICD Code: I21.4 - Non-ST elevation (NSTEMI) myocardial infarction (5) Hyperkalemia ICD Code: E87.5 - Hyperkalemia Status: Acute (6) Metabolic acidemia ICD Code: E87.2 - Acidosis (7) History of CVA (cerebrovascular accident) ICD Code: Z86.73 - Personal history of transient ischemic attack (TIA), and cerebral infarction without residual deficits (8) Diabetes ICD Code: E11.9 - Type 2 diabetes mellitus without complications Status: Acute (9) HTN (hypertension) ICD Code: I10 - Essential (primary) hypertension Status: Chronic Assessment and Plan Assessment and Plan 56-year-old male admitted with acute metabolic encephalopathy, acute on chronic renal failure. Patient is seen in the ICU. Acute metabolic encephalopathy Agitated Delirium History of previous CVA with left hemiparesis - Delirium due to acute illness. - s/p Precedex drip - use haldol as needed - Mental status back at baseline. IMPROVED Probable COPD Severe combined metabolic and respiratory acidosis - resolved. Past Tobacco abuse - Nasal cannula oxygen, protecting airway - DuoNeb every 6 hours and when necessary MUCINEX IF TOLERATED DIET Fevers New 99.2 today. No leukocytosis. Sister in law concerned that pt complained to her that he is having chills per my conversation yesterday, no chills reported today. Pt coughing up some phlegm u/a neg, chest x-ray concerning for atelectasis and blood cx pending. hold off on starting emperic abx for now, but if he spikes another temp will start emperic abx and get ID consult. Atrial flutter with rapid ventricular response - NSTEMI History of coronary artery disease HTN - Received total 4.5 L normal saline boluses, then bicarb infusion at 150 ml per hour. - Metoprolol started by cardiology however HR elevated today. Cardizem has been restarted by RN and pt still requiring it. wean off as tolerated. Will reconsult cards for assistance. - Continue ASA. DC IV Heparin due to severe anemia. NTG PRN - 2 D Echo normal EF. no RWMA. - added IV hydralazine prn. Acute on chronic kidney failure/ABNER Hyperkalemia Severe metabolic acidosis - resolved. - Status post emergency HD for hyperkalemia acute renal failure and severe acidosis on 01/10/17 - Monitor renal function closely and it is slowly improving Cr 1.92 today. [place] catheter. Renal US normal. - s/p Aggressive resuscitation with 4.5L crystalloids and bicarbonate infusion 150 ml per hour. Now bicarb off - Renal function improving. Dialysis on hold. replace KCl now Nausea/vomiting zofran prn added scheduled reglan Type 2 diabetes Hyperglycemia Dyslipidemia - Sliding-scale insulin PROPH: - Bilateral lower extremity SCDs. Heparin IV DCd, protonix 40 mg IV q12 Discharge Planning f/u blood cx. Encourage use of IS q1 hr while awake if pt continue to spike fevers, will get an ID consult as no source yet identified. Discharge Planning NEEDS TO TOLERATE A DIET Problem Qualifiers (1) Diabetes: (2) HTN (hypertension): Qualified Codes: I10 - Essential (primary) hypertension Mt Kemp DO Jan 16, 2017 09:26
[2017-01-16] MEDS: REMOVE OLD PATCH T-DERMAL SCH (10:00)
[2017-01-16] MEDS ORDERED: MAGNESIUM SULFATE 1 GM PREMIX 100 ML IV ONE (12:00)
--- NOTE | 2017-01-16 12:30 | HHI.NPPN ---
Subjective History of Present Illness 56-year-old male with past medical history of chronic kidney disease, diabetes mellitus, history of cerebrovascular accident with hemiparesis, ischemic heart disease, hypertension, atrial fibrillation who came to the hospital with generalized weakness and dizziness. I was called to see the patient because of very high BUN and creatinine, metabolic acidosis and hyperkalemia. The patient has known history of chronic kidney disease and his baseline creatinine seems to me in the range of 1.6 to 2.2. Additional Remarks Patient is alert, . not in distress. Review of Systems General Constitutional: Fatigue Cardiovascular Cardiac: RODRÍGUEZ Objective Data Data Vital Signs Date Time Temp Pulse Resp B/P (MAP) Pulse Ox O2 Delivery O2 Flow Rate FiO2 01/16/17 08:16 99 21 01/16/17 08:00 99.8 108 18 175/114 (134) 100 01/16/17 08:00 108 01/16/17 07:14 116 175/114 01/16/17 06:00 102 01/16/17 04:00 113 01/16/17 04:00 99.1 113 18 166/99 (121) 100 01/16/17 02:00 99 01/16/17 00:00 90 01/16/17 00:00 99.2 90 16 176/109 (131) 100 01/15/17 22:00 78 01/15/17 20:00 99.0 78 18 154/90 (111) 100 01/15/17 20:00 78 01/15/17 19:39 97 Nasal Cannula 2.00 01/15/17 18:00 77 01/15/17 16:00 80 01/15/17 16:00 99.2 79 20 155/95 (115) 97 01/15/17 14:00 84 -: 01/16/17 0329 01/16/17 0329 Physical Exam General Appearance: No Acute Distress, Comfortable, Anxious Throat Throat Exam: Oral Mucosa Andres & Moist Pulmonary Resp Exam: Breath Sounds Equal, No Distress, Rhonchi, Decreased Bases, Diminished Breath Sounds Cardiology CV Exam: Regular, Normal Sinus Rhythm Gastrointestinal/Abdomen GI Exam: Soft, Non-Tender, Bowel Sounds Present Extremeties Extremities Exam: Trace Edema Neurologic Neuro Exam: Alert, Awake Assessment/Plan Assessment Summary: ABNER/Acute Renal Failure, CKD Stage III Electrolyte Assessment: Hyperkalemia, Hypocalcemia, Metabolic Acidosis Problem List: (1) History of CVA (cerebrovascular accident) ICD Codes: Z86.73 - Personal history of transient ischemic attack (TIA), and cerebral infarction without residual deficits (2) HTN (hypertension) ICD Codes: I10 - Essential (primary) hypertension Status: Chronic (3) Diabetes ICD Codes: E11.9 - Type 2 diabetes mellitus without complications Status: Acute (4) Metabolic acidemia ICD Codes: E87.2 - Acidosis (5) Hyperkalemia ICD Codes: E87.5 - Hyperkalemia Status: Acute (6) Acute renal failure ICD Codes: N17.9 - Acute kidney failure, unspecified Status: Acute Plan Patient has chronic kidney disease and develop ABNER. Also had metabolic acidosis and Hyperkalemia. Patient has HD done Thursday and then started resolving ARF ATN resolving Cr declining cr 1.9, K was replace Magnesium 1 magnesium sulfate 1 g ordered Calcium low due to hypomagnesemia Problem Qualifiers (1) HTN (hypertension): Qualified Codes: I10 - Essential (primary) hypertension (2) Diabetes: (3) Acute renal failure: Qualified Codes: N17.9 - Acute kidney failure, unspecified Parth Ruiz MD Jan 16, 2017 12:30
[2017-01-16 12:43] LABS: APTT (PATIENT) 36.8 SEC (24.3-30.1)
[2017-01-16] MEDS: cloNIDine HCL 0.3 MG/24 HR PATCH T-DERMAL SCH (14:14)
[2017-01-16] MEDS: HEPARIN-D5W 25,000 U/250 ML 250 ML IV PRN ×2 (17:16→18:15)
[2017-01-16] MEDS: ATORVASTATIN 80 MG TAB PO SCH (21:53)
[2017-01-16] MEDS: guaiFENesin E.R. 600 MG TAB PO SCH (21:53)
[2017-01-17] VITALS (14 sets, daily range): BP systolic 124–164; BP diastolic 59–96; PULSE 85–120; RESP 18–24; TEMP 98.4–102.8; O2SAT 96–100
[2017-01-17 00:40] LABS: APTT (PATIENT) 46.9 SEC (24.3-30.1)
[2017-01-17] MEDS: INSULIN ASPART SUPPLEMENTAL SCALE SQ SCH ×6 (01:00→21:00)
[2017-01-17] MEDS: METOPROLOL TARTRATE 5 MG/5 ML VIAL IV PUSH SCH ×7 (01:28→23:00)
[2017-01-17] MEDS: SODIUM CHLORIDE 23.4% INJ 38.5 MEQ in WATER STERILE FOR INJ 1,000 ML IV SCH ×2 (01:29→15:16)
[2017-01-17] MEDS: CHLORHEXIDINE GLUCONATE 2 % 1 PACK (2 CLOTHS) TOP SCH (01:29)
[2017-01-17 06:34] LABS: BASOPHIL % 0.1 % (0.0-2.0); HEMATOCRIT 33.6 % (39.0-51.0); HEMO FLAGS DIFF FINAL; LYMPH % 2.6 % (9.0-44.0); LYMPHOCYTE # 0.5 TH/MM3 (1.0-4.8); MEAN CELL VOLUME 88.6 FL (80.0-100.0); MEAN CORPUSCULAR HEMOGLOBIN 29.2 PG (27.0-34.0); MEAN CORPUSCULAR HGB CONC 32.9 % (32.0-36.0); MONO % 4.4 % (0.0-8.0); NEUT % 92.9 % (16.0-70.0); PLATELET COUNT 116 TH/MM3 (150-450); RED BLOOD COUNT 3.79 MIL/MM3 (4.50-5.90); RED CELL DISTRIBUTION WIDTH 14.3 % (11.6-17.2); WHITE BLOOD COUNT 20.5 TH/MM3 (4.0-11.0)
[2017-01-17 07:13] LABS: ALKALINE PHOSPHATASE 57 U/L (45-117); ALT (GPT) 19 U/L (12-78); ANION GAP 7 MEQ/L (5-15); AST (GOT) 20 U/L (15-37); BICARBONATE 26.1 MEQ/L (21.0-32.0); BLOOD UREA NITROGEN 23 MG/DL (7-18); CHLORIDE 104 MEQ/L (98-107); FREE T4 1.77 NG/DL (0.76-1.46); GLOMERULAR FILTRATION RATE 40 ML/MIN (>89); MAGNESIUM 0.9 MG/DL (1.5-2.5); POTASSIUM 4.1 MEQ/L (3.5-5.1); SODIUM (NA) 137 MEQ/L (136-145); TOTAL BILIRUBIN ADULT 1.9 MG/DL (0.2-1.0)
[2017-01-17 07:21] LABS: CALCIUM-PROTEIN CORRECTED 6.6 MG/DL (8.5-10.1)
[2017-01-17] MEDS: ASPIRIN EC 81 MG TABEC PO SCH (08:19)
[2017-01-17] MEDS: DOCUSATE SODIUM 50 MG/SENNA 8.6 MG TAB PO SCH ×2 (08:19→21:00)
[2017-01-17] MEDS: guaiFENesin E.R. 600 MG TAB PO SCH ×2 (08:20→21:00)
[2017-01-17] MEDS: SODIUM CHLORIDE 0.9% FLUSH 10 ML FLUSH IV FLUSH SCH (08:23)
[2017-01-17] MEDS: METOCLOPRAMIDE HCL 10 MG/2 ML VIAL IV PUSH SCH ×2 (08:59→16:56)
[2017-01-17 09:33] LABS: APTT (PATIENT) 59.5 SEC (24.3-30.1)
--- NOTE | 2017-01-17 10:38 | HHI.PR ---
Subjective Remarks Follow-up for multiple medical reasons listed assessment and plan Patient told me to get out of the room and did not want me to interview him. During my time in the room with his nurse Destiney patient with commanding Destiney to do multiple things such as given extra blanket, give him a container to spit in. When I asked patient multiple times if I can examine him and told him the reason why he stated "get out Doc." Destiney also tried explained to him my role and asked if I can examine him and he would not and when I get closer he would look at me an aggressive manner. Unsure if patient is altered. This is my first time with him. He is not agitated at all and is commanding others to do things for him. Objective Vitals Vital Signs Date Time Temp Pulse Resp B/P (MAP) Pulse Ox O2 Delivery O2 Flow Rate FiO2 01/17/17 08:19 96 01/17/17 08:00 99 01/17/17 08:00 99.0 96 18 154/95 (114) 100 01/17/17 06:00 93 01/17/17 04:00 96 01/17/17 04:00 98.4 96 18 164/96 (118) 100 01/17/17 02:00 100 01/17/17 00:00 96 01/17/17 00:00 98.8 96 21 164/93 (116) 01/16/17 23:17 96 189/93 01/16/17 22:00 99 01/16/17 20:00 124 01/16/17 20:00 98.0 124 23 166/90 (115) 01/16/17 19:03 97 21 01/16/17 18:00 126 01/16/17 16:00 120 01/16/17 16:00 99.3 116 24 186/119 (141) 98 01/16/17 14:00 117 01/16/17 12:00 114 01/16/17 12:00 99.0 114 22 139/80 (99) 98 I/O 01/16/17 01/16/17 01/16/17 01/17/17 01/17/17 01/17/17 07:00 15:00 23:00 07:00 15:00 23:00 Intake Total 560 ml 2143 ml 338 ml Output Total 500 ml 1650 ml 900 ml Balance 60 ml 493 ml -562 ml Intake Oral 60 ml 120 ml 140 ml IV Total 500 ml 2023 ml 198 ml Output Urine Total 500 ml 1650 ml 900 ml # Bowel Movements 1 0 Result Diagram: 01/17/1750901/17/17509 Objective Remarks GENERAL: In no acute distress and is awake. Does not want to answer any questions. NEURO: Patient is able to make commands to others. Grossly moves his extremities. Otherwise patient will not let me examine him. Medications and IVs Current Medications Meclizine HCl (Antivert) 25 mg ONCE ONCE PO Last administered on 01/10/17 13 :42; Start 01/10/17 at 13:00; Stop 01/10/17 at 13:01; Status DC Sodium Chloride (NS Flush) 2 ml UNSCH PRN IVF FLUSH AFTER USING IV ACCESS; Start 01/10/17 at 13:00; Stop 01/10/17 at 22:25; Status DC Acetaminophen (Tylenol) 650 mg ONCE ONCE PO Last administered on 01/10/17 14 :07; Start 01/10/17 at 14:00; Stop 01/10/17 at 14:01; Status DC Insulin Human Regular (NovoLIN R INJ) 10 units ONCE ONCE IV PUSH Last administered on 01/10/17 16:14; Start 01/10/17 at 16:00; Stop 01/10/17 at 16 :01; Status DC Dextrose (D50w (Syr) Inj) 25 ml ONCE ONCE IV PUSH Last administered on 16:10; Start 01/10/17 at 16:00; Stop 01/10/17 at 16:01; Status DC Calcium Gluconate (Calcium Gluconate Inj) 1 gm ONCE ONCE IV PUSH Last administered on 01/10/17 16:09; Start 01/10/17 at 16:00; Stop 01/10/17 at 16 :01; Status DC Sodium Polystyrene Sulfonate (Kayexalate Liq) 15 gm ONCE ONCE PO ; Start 01/10 at 16:00; Stop 01/10/17 at 16:01; Status DC Sodium Bicarbonate 200 meq/Sodium Chloride 1,200 ml @ 100 mls/hr Q12H IV ; Start 01/10/17 at 16:15; Stop 01/11/17 at 14:47; Status DC Sodium Chloride 1,000 ml @ 999 mls/hr BOLUS ONCE IV Last administered on 16:43; Start 01/10/17 at 16:15; Stop 01/10/17 at 17:15; Status DC Sodium Chloride 1,000 ml @ 999 mls/hr BOLUS ONCE IV Last administered on 16:44; Start 01/10/17 at 16:15; Stop 01/10/17 at 17:15; Status DC Sodium Bicarbonate (Sodium Bicarbonate 8.4% Inj) 50 meq STK-MED ONCE .ROUTE ; Start 01/10/17 at 16:23; Stop 01/10/17 at 16:43; Status DC Sodium Bicarbonate 200 meq/Sterile Water 1,050 ml @ 150 mls/hr Q7H IV Last administered on 01/11/17 08:22; Start 01/10/17 at 16:45; Stop 01/11/17 at 14 :47; Status DC Sodium Chloride 1,000 ml @ 999 mls/hr BOLUS ONCE IV Last administered on 17:23; Start 01/10/17 at 17:00; Stop 01/10/17 at 18:00; Status DC Sodium Chloride 1,000 ml @ 999 mls/hr BOLUS ONCE IV Last administered on 17:23; Start 01/10/17 at 17:00; Stop 01/10/17 at 18:00; Status DC Sodium Chloride 1,000 ml @ 999 mls/hr BOLUS ONCE IV Last administered on 17:40; Start 01/10/17 at 17:00; Stop 01/10/17 at 18:00; Status DC Acetaminophen (Tylenol) 650 mg Q6H PRN PO PAIN SCALE 1 TO 4; Start 01/10/17 at 17:00 Albuterol Sulfate (Proair Hfa Inh) 2 puff Q6H PRN INH SHORTNESS OF BREATH; Start 01/10/17 at 17:00 Atorvastatin Calcium (Lipitor) 80 mg HS PO Last administered on 01/16/17 21: 53; Start 01/10/17 at 21:00 Nitroglycerin (Nitrostat Sl) 0.4 mg Q3H PRN SL CHEST PAIN; Start 01/10/17 at 17:00 Aspirin (Ecotrin Ec) 81 mg DAILY PO Last administered on 01/17/17 08:19; Start 01/10/17 at 17:00 Heparin Sodium/ Dextrose 250 ml @ 10 mls/hr TITRATE PRN IV Coagulation management Last administered on 01/11/17 01:03; Start 01/10/17 at 17:00; Stop 01/11/17 at 17:15; Status DC Insulin Aspart (NovoLOG SUPPLEMENTAL SCALE) 1 Q4H SQ Last administered on 01/17 08:59; Start 01/10/17 at 17:00 Sodium Chloride (NS Flush) 2 ml UNSCH PRN IV FLUSH FLUSH AFTER USING IV ACCESS ; Start 01/10/17 at 17:15; Stop 01/11/17 at 14:50; Status DC Sodium Chloride (NS Flush) 2 ml BID IV FLUSH Last administered on 01/17/17 08 :23; Start 01/10/17 at 21:00 Pantoprazole Sodium (Protonix) 40 mg DAILY PO ; Start 01/11/17 at 09:00; Stop 01/11/17 at 17:15; Status DC Miscellaneous Information 1 Q361D XX ; Start 01/10/17 at 17:15 Chlorhexidine Gluconate (Chlorhexidine 2% Cloth) Taper DAILY@04 TOP Last administered on 01/17/17 01:29; Start 01/11/17 at 04:00; Stop 01/07/18 at 03 :59 Chlorhexidine Gluconate (Chlorhexidine 2% Cloth) 3 pack UNSCH PRN TOP HYGIENIC CARE; Start 01/10/17 at 17:15 Senna/Docusate Sodium (Afia-Colace) 1 tab BID PO Last administered on 08:19; Start 01/10/17 at 21:00 Magnesium Hydroxide (Milk Of Magnesia Liq) 30 ml Q12H PRN PO Mild constipation ; Start 01/10/17 at 17:15 Sennosides (Senokot) 17.2 mg Q12H PRN PO Moderate constipation; Start at 17:15 Bisacodyl (Dulcolax Supp) 10 mg DAILY PRN RECTAL SEVERE CONSITIPATION; Start 01/10/17 at 17:15 Lactulose (Lactulose Liq) 30 ml DAILY PRN PO SEVERE CONSITIPATION; Start 01/10 at 17:15 Sodium Bicarbonate 0 ml @ As Directed STK-MED ONCE .ROUTE ; Start 01/10/17 at 17:23; Stop 01/10/17 at 17:24; Status DC Sodium Bicarbonate (Sodium Bicarbonate 8.4% Inj) 50 meq STK-MED ONCE .ROUTE ; Start 01/10/17 at 17:23; Stop 01/10/17 at 17:24; Status DC Sodium Chloride 1,000 ml @ 0 mls/hr Q0M PRN OTHER For Prime & Rinse Back Last administered on 01/10/17 22:05; Start 01/10/17 at 17:47 Heparin Sodium (Porcine) (Heparin Inj) 8,000 units UNSCH PRN IV FLUSH WITH DIALYSIS; Start 01/10/17 at 18:00 Sodium Chloride 1,000 ml @ 200 mls/hr Q5H PRN IV WITH DIALYSIS; Start at 17:47 Sodium Chloride 1,000 ml @ 0 mls/hr Q0M PRN OTHER WITH DIALYSIS; Start at 17:47 Mannitol (Mannitol Inj) 12.5 gm UNSCH PRN IV WITH DIALYSIS; Start 01/10/17 at 18:00 Albumin Human 100 ml @ 60 mls/hr UNSCH PRN IV WITH DIALYSIS; Start 01/10/17 at 18:00 Sodium Chloride (NS Flush) 5 ml UNSCH PRN IV FLUSH WITH DIALYSIS; Start at 18:00 Heparin Sodium (Porcine) (Heparin Inj) UNSCH PRN .XX WITH DIALYSIS; Start at 18:00 Gentamicin Sulfate (Gentamicin (Dialysis) Inj) 20 mg UNSCH PRN OTHER WITH DIALYSIS Last administered on 01/10/17 22:03; Start 01/10/17 at 18:00 Ondansetron HCl (Zofran Inj) 4 mg UNSCH PRN IV PUSH WITH DIALYSIS Last administered on 01/16/17 08:47; Start 01/10/17 at 18:00 Acetaminophen (Tylenol) 650 mg UNSCH PRN PO for headach, pain, temp > 101F; Start 01/10/17 at 18:00 Diphenhydramine HCl (Benadryl) 25 mg UNSCH PRN PO for hives/itching/anaphylaxis ; Start 01/10/17 at 18:00 Nitroglycerin (Nitrostat Sl) 0.4 mg UNSCH PRN SL CHEST PAIN; Start 01/10/17 at 18:00 Clonidine (Catapres) 0.1 mg UNSCH PRN PO for BP > 180/100 X 2 readings Last administered on 01/15/17 02:07; Start 01/10/17 at 18:00 Gelatin (Gelfoam 12 Mm/7 Mm Top) 1 foam UNSCH PRN TOP SEE LABEL COMMENTS; Start 01/10/17 at 18:00 Dextrose (D50w (Vial) Inj) 50 ml UNSCH PRN IV PUSH HYPOGLYCEMIA-SEE COMMENTS Last administered on 01/10/17 18:05; Start 01/10/17 at 22:30 Glucagon (Glucagon Inj) 1 mg UNSCH PRN OTHER HYPOGLYCEMIA-SEE COMMENTS; Start 01/10/17 at 22:30 Dexmedetomidine HCl 200 mcg/ Sodium Chloride 52 ml @ 5.46 mls/hr TITRATE PRN IV SEDATION Last administered on 01/12/17 14:53; Start 01/11/17 at 00:00 Metoprolol Tartrate (Lopressor) 25 mg Q12HR PO Last administered on 01/15/17 08:48; Start 01/11/17 at 21:00; Stop 01/15/17 at 11:09; Status DC Metoprolol Tartrate (Lopressor Inj) 5 mg Q1HR PRN IV PUSH RAPID HEART RATE Last administered on 01/14/17 21:16; Start 01/11/17 at 11:15; Stop 01/15/17 at 11:09; Status DC Diltiazem HCl 125 mg/Sodium Chloride 125 ml @ 5 mls/hr TITRATE PRN IV Tachycardia Last administered on 01/15/17 10:45; Start 01/11/17 at 17:30; Stop 01/15/17 at 11:11; Status DC Sodium Chloride 1,000 ml @ 84 mls/hr [id number] IV Last administered on 01:04; Start 01/12/17 at 13:00; Stop 01/13/17 at 12:51; Status DC Haloperidol Lactate (Haldol Inj) 5 mg Q4H PRN IV agitation; Start 01/12/17 at 17:00 Diltiazem HCl (Cardizem) 60 mg Q6HR PO Last administered on 01/15/17 07:03; Start 01/13/17 at 06:00; Stop 01/15/17 at 11:09; Status DC Sodium Chloride 38.5 meq/Sterile Water 1,009.625 ml @ 84 mls/hr Q12H2M IV Last administered on 01/17/17 01:29; Start 01/13/17 at 15:00 Metoclopramide HCl (Reglan Inj) 5 mg Q8H PRN IV PUSH NAUSEA OR VOMITING Last administered on 01/14/17 22:57; Start 01/14/17 at 11:15; Stop 01/15/17 at 08 :56; Status DC Potassium Chloride 100 ml @ 50 mls/hr Q2H IV Last administered on 01/14/17 15:19; Start 01/14/17 at 12:00; Stop 01/14/17 at 15:59; Status DC Hydralazine HCl (Apresoline Inj) 20 mg ONCE ONCE IV PUSH Last administered on 01/14/17 22:58; Start 01/14/17 at 23:00; Stop 01/14/17 at 23:01; Status DC Metoclopramide HCl (Reglan Inj) 5 mg Q8H IV PUSH Last administered on 08:59; Start 01/15/17 at 10:00 Hydralazine HCl (Apresoline Inj) 10 mg Q4H PRN IV PUSH SYS BP GREATER THAN 160 MMHG; Start 01/15/17 at 10:00 Potassium Chloride 100 ml @ 100 mls/hr Q1H IV ; Start 01/15/17 at 10:00; Stop 01/15/17 at 10:00; Status DC Potassium Chloride 100 ml @ 50 mls/hr Q2H IV Last administered on 01/16/17 06:11; Start 01/15/17 at 10:00; Status Future Hold Diltiazem HCl 125 mg/Sodium Chloride 125 ml @ 15 mls/hr TITRATE PRN IV Tachycardia Last administered on 01/16/17 23:17; Start 01/15/17 at 17:30 Metoprolol Tartrate (Lopressor Inj) 5 mg Q4H IV PUSH Last administered on 01/16 08:48; Start 01/15/17 at 12:00; Stop 01/16/17 at 09:17; Status DC Heparin Sodium (Porcine) (Heparin Inj) 4,000 units NOW STAT IV PUSH ; Start at 11:11; Stop 01/15/17 at 11:12; Status Cancel Heparin Sodium (Porcine) (Heparin Inj) 5,000 units UNSCH PRN IV PUSH APTT LESS THAN 25; Start 01/15/17 at 17:15 Heparin Sodium (Porcine) (Heparin Inj) 2,500 units UNSCH PRN IV PUSH APTT 25 TO 39 Last administered on 01/16/17 06:17; Start 01/15/17 at 17:15 Heparin Sodium/ Dextrose 250 ml @ 10 mls/hr TITRATE PRN IV Coagulation management; Start 01/15/17 at 11:15; Status Cancel Heparin Sodium (Porcine) (Heparin Inj) 4,000 units NOW STAT IV PUSH Last administered on 01/15/17 15:45; Start 01/15/17 at 15:45; Stop 01/15/17 at 15 :51; Status DC Heparin Sodium/ Dextrose 250 ml @ 10 mls/hr TITRATE PRN IV Coagulation management Last administered on 01/16/17 18:15; Start 01/15/17 at 16:00 Clonidine (Catapres-Tts 0.3 Mg Patch.7d) 1 patch Q7D T-DERMAL Last administered on 01/16/17 14:14; Start 01/16/17 at 10:00 Metoprolol Tartrate (Lopressor Inj) 5 mg Q3H IV PUSH Last administered on 01/17 08:19; Start 01/16/17 at 11:00 Miscellaneous Information 1 Q7D T-DERMAL Last administered on 01/16/17 10:00 ; Start 01/16/17 at 10:00 Guaifenesin (Mucinex Er) 600 mg BID PO Last administered on 01/17/17 08:20; Start 01/16/17 at 21:00 Magnesium Sulfate/ Dextrose 100 ml @ 100 mls/hr ONCE ONCE IV Last administered on 01/16/17 14:14; Start 01/16/17 at 12:00; Stop 01/16/17 at 12 :59; Status DC A/P Problem List: (1) Acute on chronic kidney failure ICD Code: N17.9 - Acute kidney failure, unspecified; N18.9 - Chronic kidney disease, unspecified (2) Combined metabolic and respiratory acidosis (3) Acute metabolic encephalopathy ICD Code: G93.41 - Metabolic encephalopathy (4) NSTEMI (non-ST elevated myocardial infarction) ICD Code: I21.4 - Non-ST elevation (NSTEMI) myocardial infarction (5) Hyperkalemia ICD Code: E87.5 - Hyperkalemia Status: Acute (6) Metabolic acidemia ICD Code: E87.2 - Acidosis (7) History of CVA (cerebrovascular accident) ICD Code: Z86.73 - Personal history of transient ischemic attack (TIA), and cerebral infarction without residual deficits (8) Diabetes ICD Code: E11.9 - Type 2 diabetes mellitus without complications Status: Acute (9) HTN (hypertension) ICD Code: I10 - Essential (primary) hypertension Status: Chronic Assessment and Plan 56-year-old male admitted with acute metabolic encephalopathy, acute on chronic renal failure. Patient is seen in the ICU. Acute metabolic encephalopathy Agitated Delirium History of previous CVA with left hemiparesis - From previous provider stated that delirium resolved the patient's back to his baseline. Unsure if patient is delirious today but he does not seem to be that way. We'll need to get a psychiatrist to determine if patient has the capacity to make medical decision. If so and patient is able to make decisions and he does not want treatment here he can be discharged from the hospital. - s/p Precedex drip - use haldol as needed Probable COPD Severe combined metabolic and respiratory acidosis - resolved. Past Tobacco abuse - Nasal cannula oxygen, protecting airway - DuoNeb every 6 hours and when necessary MUCINEX IF TOLERATED DIET Atrial flutter with rapid ventricular response - Elevated troponin History of coronary artery disease HTN - Received total 4.5 L normal saline boluses, then bicarb infusion at 150 ml per hour. -Patient evaluate by head sawyer automatic recommend Cardizem and metoprolol IV until patient at home medication down. Also recommend starting oral warfarin if patient able take oral intake. Questionable if patient will be compliant with this. Will need assessment from psychiatrist. -As per patient elevated troponin he is asymptomatic. Echo showed normal function and a recent nonischemic nuclear stress stress test. Per head sawyer automatic this is most likely secondary to his renal failure, anemia and metabolic derangements. Acute on chronic kidney failure/ABNER Hyperkalemia Severe metabolic acidosis - resolved. - Status post emergency HD for hyperkalemia acute renal failure and severe acidosis on 01/10/17 - Monitor renal function closely and it is slowly improving Cr 1.92 today. [place] catheter. Renal US normal. - s/p Aggressive resuscitation with 4.5L crystalloids and bicarbonate infusion 150 ml per hour. Now bicarb off - Renal function improving. Dialysis on hold. replace KCl now Hypocalcemia/hypo-magnesium -Will need to replenish electrolytes. Nausea/vomiting zofran prn added scheduled reglan Type 2 diabetes Hyperglycemia Dyslipidemia - Sliding-scale insulin PROPH: - Bilateral lower extremity SCDs. Heparin IV DCd, protonix 40 mg IV q12 Discharge Planning Unsure if patient is delirious today but he does not seem to be that way. He seems to be able to command his nurse to do things for him. Will need to get a psychiatrist to determine if patient has the capacity to make medical decision. If so and patient is able to make decisions and he does not want treatment here he can be discharged from the hospital. Patient's nurse Destiney was at the bedside during my entire encounter with the patient. Problem Qualifiers (1) Diabetes: (2) HTN (hypertension): Qualified Codes: I10 - Essential (primary) hypertension Paige Fitzgerald MD Jan 17, 2017 10:38
[2017-01-17] MEDS: MAGNESIUM SULFATE 1 GM PREMIX 100 ML IV SCH ×2 (10:45→11:45)
[2017-01-17] MEDS ORDERED: CALCIUM GLUCONATE INJ 1 GM in SODIUM CHLORIDE 0.9% INJ 100 ML IV ONE (12:00)
[2017-01-17] MEDS: CALCIUM CARBONATE 1.25 GM (CA 500 MG) TAB PO SCH ×2 (13:00→16:56)
--- NOTE | 2017-01-17 13:18 | HHI.NPPN ---
Subjective History of Present Illness 56-year-old male with past medical history of chronic kidney disease, diabetes mellitus, history of cerebrovascular accident with hemiparesis, ischemic heart disease, hypertension, atrial fibrillation who came to the hospital with generalized weakness and dizziness. I was called to see the patient because of very high BUN and creatinine, metabolic acidosis and hyperkalemia. The patient has known history of chronic kidney disease and his baseline creatinine seems to me in the range of 1.6 to 2.2. Additional Remarks Patient is not cooperating not eating well Review of Systems General Constitutional: Fatigue Cardiovascular Cardiac: RODRÍGUEZ Objective Data Data Vital Signs Date Time Temp Pulse Resp B/P (MAP) Pulse Ox O2 Delivery O2 Flow Rate FiO2 01/17/17 12:00 99 01/17/17 12:00 99.0 85 18 124/59 (80) 98 01/17/17 10:00 99 01/17/17 08:19 96 01/17/17 08:00 99 01/17/17 08:00 99.0 96 18 154/95 (114) 100 01/17/17 06:00 93 01/17/17 04:00 96 01/17/17 04:00 98.4 96 18 164/96 (118) 100 01/17/17 02:00 100 01/17/17 00:00 96 01/17/17 00:00 98.8 96 21 164/93 (116) 01/16/17 23:17 96 189/93 01/16/17 22:00 99 01/16/17 20:00 124 01/16/17 20:00 98.0 124 23 166/90 (115) 01/16/17 19:03 97 21 01/16/17 18:00 126 01/16/17 16:00 120 01/16/17 16:00 99.3 116 24 186/119 (141) 98 01/16/17 14:00 117 -: 01/17/17 0510 01/17/17 0510 Physical Exam General Appearance: No Acute Distress, Comfortable, Anxious Throat Throat Exam: Oral Mucosa [place] & Moist Pulmonary Resp Exam: Breath Sounds Equal, No Distress, Rhonchi, Decreased Bases, Diminished Breath Sounds Cardiology CV Exam: Regular, Normal Sinus Rhythm Gastrointestinal/Abdomen GI Exam: Soft, Non-Tender, Bowel Sounds Present Extremeties Extremities Exam: Trace Edema Neurologic Neuro Exam: Alert, Awake Assessment/Plan Assessment Summary: ABNER/Acute Renal Failure, CKD Stage III Electrolyte Assessment: Hyperkalemia, Hypocalcemia, Metabolic Acidosis Problem List: (1) History of CVA (cerebrovascular accident) ICD Codes: Z86.73 - Personal history of transient ischemic attack (TIA), and cerebral infarction without residual deficits (2) HTN (hypertension) ICD Codes: I10 - Essential (primary) hypertension Status: Chronic (3) Diabetes ICD Codes: E11.9 - Type 2 diabetes mellitus without complications Status: Acute (4) Metabolic acidemia ICD Codes: E87.2 - Acidosis (5) Hyperkalemia ICD Codes: E87.5 - Hyperkalemia Status: Acute (6) Acute renal failure ICD Codes: N17.9 - Acute kidney failure, unspecified Status: Acute Plan Patient has chronic kidney disease and develop ABNER. Also had metabolic acidosis and Hyperkalemia. Patient has HD done Thursday and then started resolving ARF ATN resolving Cr declining cr 2.1 again as not taking enough liquids not cooperating Magnesium replaced again, Ca replaced, KPO4 ordered Calcium low due to hypomagnesemia Problem Qualifiers (1) HTN (hypertension): Qualified Codes: I10 - Essential (primary) hypertension (2) Diabetes: (3) Acute renal failure: Qualified Codes: N17.9 - Acute kidney failure, unspecified Parth Ruiz MD Jan 17, 2017 13:18
[2017-01-17] MEDS: POTASSIUM PHOSPHATE MONOBASIC 500 MG TAB PO SCH ×2 (14:00→21:00)
--- NOTE | 2017-01-17 14:11 | PD.PSY.CON ---
Provisional Diagnosis Admission Date Jan 10, 2017 at 16:57 [place]. Delirium History of Present Illness Service Psychiatry Consult Requested By Dr. Fitzgerald Reason for Consult Patient uncooperative Primary Care Physician [place] Frey MD [facility] This physician spoke with patient and 3 of his nurses. Patient obviously suffering from delirium and his mental status waxes and wanes. He is not felt to be competent to make medical decisions. Review of Systems Except as stated in HPI: all other systems reviewed are Neg Past Family Social History Coded Allergies: No Known Allergies (Unverified , 01/07/17) Active Scripts Acetaminophen (Tylenol) 325 Mg Tab, 650 MG PO Q6H Y for PAIN SCALE 1 TO 4, #20 TAB 0 Refills Prov:AntonioRacquel DO 01/07/17 Lisinopril (Lisinopril) 5 Mg Tab, 5 MG PO DAILY for Blood Pressure Management, # 30 TAB 3 Refills Prov:Indiana Frey MD 12/12/16 Atorvastatin (Atorvastatin) 80 Mg Tab, 80 MG PO HS for Cholesterol Management, # 30 TAB 3 Refills Prov:Indiana Frey MD 11/11/16 Gabapentin (Gabapentin) 300 Mg Cap, 300 MG PO BID, #60 CAP 3 Refills Prov:[place]iana Frey MD 11/11/16 Glimepiride (Glimepiride) 4 Mg Tab, 4 MG PO DAILY for Blood Sugar Management, # 60 TAB 3 Refills Prov:Indiana Frey MD 11/11/16 Carvedilol (Coreg) 12.5 Mg Tab, 12.5 MG PO Q12HR for HTN for 30 Days, TAB Prov:Fly Medina MD 09/04/16 Reported Medications Albuterol 8.5 GM Inh (Proair Hfa 8.5 GM Inh) 90 Mcg/Act Aer, 2 PUFF INH Q4-6H Y for SHORTNESS OF BREATH, #1 INHALER 0 Refills 108 mcg/actuation 11/11/16 Nitroglycerin SL (Nitroglycerin SL) 0.4 Mg Subl, 0.4 MG SL DIRECTED Y for CHEST PAIN, #100 TAB.SL 0 Refills ONE TABLET UNDER THE TONGUE NEEDED FOR CHEST PAIN, MAY REPEAT EVERY FIVE MINUTES FOR A TOTAL OF 3 DOSES OR CALL 911 IF NO RELIEF 10/30/16 Loperamide (Loperamide) 2 Mg Cap, 2 MG PO DIRECTED Y for DIARRHEA, CAP 0 Refills One capsule after each loose stool. Not to exceed 8 capsules per day. 10/30/16 Sitagliptin (Januvia) 25 Mg Tab, 50 MG PO DAILY for Blood Sugar Management, #30 TAB 0 Refills 09/01/16 Current Medications Medications (Trade) Dose Ordered Sig/Mansi Route Start Time Stop Time Status Last Admin (Tylenol) 650 mg Q6H PRN PO 01/10/17 17:00 (Proair Hfa Inh) 2 puff Q6H PRN INH 01/10/17 17:00 (Lipitor) 80 mg HS PO 01/10/17 21:00 01/16/17 21:53 (Nitrostat Sl) 0.4 mg Q3H PRN SL 01/10/17 17:00 (Ecotrin Ec) 81 mg DAILY PO 01/10/17 17:00 01/17/17 08:19 (NovoLOG SUPPLEMENTAL SCALE) 1 Q4H SQ 01/10/17 17:00 01/17/17 08:59 (NS Flush) 2 ml BID IV FLUSH 01/10/17 21:00 01/17/17 08:23 Miscellaneous Information 1 Q361D XX 01/10/17 17:15 (Chlorhexidine 2% Cloth) Taper DAILY@04 TOP 01/11/17 04:00 01/07/18 03:59 01/17/17 01:29 (Chlorhexidine 2% Cloth) 3 pack UNSCH PRN TOP 01/10/17 17:15 (Afia-Colace) 1 tab BID PO 01/10/17 21:00 01/17/17 08:19 (Milk Of Magnesia Liq) 30 ml Q12H PRN PO 01/10/17 17:15 (Senokot) 17.2 mg Q12H PRN PO 01/10/17 17:15 (Dulcolax Supp) 10 mg DAILY PRN RECTAL 01/10/17 17:15 (Lactulose Liq) 30 ml DAILY PRN PO 01/10/17 17:15 Sodium Chloride 1,000 ml @ 0 mls/hr Q0M PRN OTHER 01/10/17 17:47 01/10/17 22:05 (Heparin Inj) 8,000 units UNSCH PRN IV FLUSH 01/10/17 18:00 Sodium Chloride 1,000 ml @ 200 mls/hr Q5H PRN IV 01/10/17 17:47 Sodium Chloride 1,000 ml @ 0 mls/hr Q0M PRN OTHER 01/10/17 17:47 (Mannitol Inj) 12.5 gm UNSCH PRN IV 01/10/17 18:00 Albumin Human 100 ml @ 60 mls/hr UNSCH PRN IV 01/10/17 18:00 (NS Flush) 5 ml UNSCH PRN IV FLUSH 01/10/17 18:00 (Heparin Inj) UNSCH PRN .XX 01/10/17 18:00 (Gentamicin (Dialysis) Inj) 20 mg UNSCH PRN OTHER 01/10/17 18:00 01/10/17 22:03 (Zofran Inj) 4 mg UNSCH PRN IV PUSH 01/10/17 18:00 01/16/17 08:47 (Tylenol) 650 mg UNSCH PRN PO 01/10/17 18:00 (Benadryl) 25 mg UNSCH PRN PO 01/10/17 18:00 (Nitrostat Sl) 0.4 mg UNSCH PRN SL 01/10/17 18:00 (Catapres) 0.1 mg UNSCH PRN PO 01/10/17 18:00 01/15/17 02:07 (Gelfoam 12 Mm/7 Mm Top) 1 foam UNSCH PRN TOP 01/10/17 18:00 (D50w (Vial) Inj) 50 ml UNSCH PRN IV PUSH 01/10/17 22:30 01/10/17 18:05 (Glucagon Inj) 1 mg UNSCH PRN OTHER 01/10/17 22:30 Dexmedetomidine HCl 200 mcg/ Sodium Chloride 52 ml @ 5.46 mls/hr TITRATE PRN IV 01/11/17 00:00 01/12/17 14:53 (Haldol Inj) 5 mg Q4H PRN IV 01/12/17 17:00 Sodium Chloride 38.5 meq/Sterile Water 1,009.625 ml @ 84 mls/hr Q12H2M IV 01/13/17 15:00 01/17/17 01:29 (Reglan Inj) 5 mg Q8H IV PUSH 01/15/17 10:00 01/17/17 08:59 (Apresoline Inj) 10 mg Q4H PRN IV PUSH 01/15/17 10:00 Potassium Chloride 100 ml @ 50 mls/hr Q2H IV 01/15/17 10:00 Future Hold 01/16/17 06:11 Diltiazem HCl 125 mg/Sodium Chloride 125 ml @ 15 mls/hr TITRATE PRN IV 01/15/17 17:30 01/16/17 23:17 (Heparin Inj) 5,000 units UNSCH PRN IV PUSH 01/15/17 17:15 (Heparin Inj) 2,500 units UNSCH PRN IV PUSH 01/15/17 17:15 01/16/17 06:17 Heparin Sodium/ Dextrose 250 ml @ 10 mls/hr TITRATE PRN IV 01/15/17 16:00 01/16/17 18:15 (Catapres-Tts 0.3 Mg Patch.7d) 1 patch Q7D T-DERMAL 01/16/17 10:00 01/16/17 14:14 (Lopressor Inj) 5 mg Q3H IV PUSH 01/16/17 11:00 01/17/17 11:00 Miscellaneous Information 1 Q7D T-DERMAL 01/16/17 10:00 01/16/17 10:00 (Mucinex Er) 600 mg BID PO 01/16/17 21:00 01/17/17 08:20 (Oscal) 500 mg TID PO 01/17/17 13:00 01/17/17 13:00 (K-Phos) 500 mg Q12HR PO 01/17/17 14:00 Family Psych History Unknown. Patient poor historian. Social History Unknown. Patient poor historian. Patient's Strengths (min. 2) Resilient. Has access to healthcare. Physical Exam Vital Signs Vital Signs Date Time Temp Pulse Resp B/P (MAP) Pulse Ox O2 Delivery O2 Flow Rate FiO2 01/17/17 13:19 85 148/81 01/17/17 12:00 99.0 18 98 01/16/17 19:03 21 01/15/17 19:39 Nasal Cannula 2.00 I/O 01/17/17 01/17/17 01/18/17 08:00 16:00 00:00 Intake Total 338 ml 200 ml Output Total 900 ml Balance -562 ml 200 ml Lab Results Test 01/16/17 23:57 01/17/17 05:10 01/17/17 08:36 Activated Partial Thromboplast Time 46.9 SEC 59.5 SEC White Blood Count 20.5 TH/MM3 Red Blood Count 3.79 MIL/MM3 Hemoglobin 11.1 GM/DL Hematocrit 33.6 % Mean Corpuscular Volume 88.6 FL Mean Corpuscular Hemoglobin 29.2 PG Mean Corpuscular Hemoglobin Concent 32.9 % Red Cell Distribution Width 14.3 % Platelet Count 116 TH/MM3 Mean Platelet Volume 9.6 FL Neutrophils (%) (Auto) 92.9 % Lymphocytes (%) (Auto) 2.6 % Monocytes (%) (Auto) 4.4 % Eosinophils (%) (Auto) 0.0 % Basophils (%) (Auto) 0.1 % Neutrophils # (Auto) 19.0 TH/MM3 Lymphocytes # (Auto) 0.5 TH/MM3 Monocytes # (Auto) 0.9 TH/MM3 Eosinophils # (Auto) 0.0 TH/MM3 Basophils # (Auto) 0.0 TH/MM3 CBC Comment DIFF FINAL Differential Comment Blood Urea Nitrogen 23 MG/DL Creatinine 2.11 MG/DL Random Glucose 190 MG/DL Total Protein 7.2 GM/DL Albumin 2.8 GM/DL Calcium Level 6.6 MG/DL Phosphorus Level 1.2 MG/DL Magnesium Level 0.9 MG/DL Alkaline Phosphatase 57 U/L Aspartate Amino Transf (AST/SGOT) 20 U/L Alanine Aminotransferase (ALT/SGPT) 19 U/L Total Bilirubin 1.9 MG/DL Sodium Level 137 MEQ/L Potassium Level 4.1 MEQ/L Chloride Level 104 MEQ/L Carbon Dioxide Level 26.1 MEQ/L Anion Gap 7 MEQ/L Estimat Glomerular Filtration Rate 40 ML/MIN Protein Corrected Calcium 6.6 MG/DL Free Thyroxine 1.77 NG/DL Thyroid Stimulating Hormone 3rd Gen 1.190 uIU/ML Date/Time Source Procedure Growth Status 01/14/17 11:52 Blood Peripheral Aerobic Blood Culture - Preliminary NO GROWTH IN 3 DAYS Resulted 01/14/17 11:52 Blood Peripheral Anaerobic Blood Culture - Preliminary NO GROWTH IN 3 DAYS Resulted Mental Status Examination Mental Status Exam Remarks Patient obtunded and unable to cooperate with mental status exam. Assessment & Plan Problem List: (1) Delirium due to another medical condition ICD Codes: F05 - Delirium due to known physiological condition Assessment & Plan Estimated LOS: days. Patient delirious and not felt to be competent to make medical decisions. Suggest healthcare surrogate or guardian advocate. Bahman Walden MD Jan 17, 2017 14:11
[2017-01-17] MEDS: QUEtiapine FUMARATE 25 MG TAB PO SCH (21:00)
[2017-01-17] MEDS: ATORVASTATIN 80 MG TAB PO SCH (21:00)
[2017-01-18] VITALS (13 sets, daily range): BP systolic 107–147; BP diastolic 71–93; PULSE 87–130; RESP 15–23; TEMP 99–100.1; O2SAT 95–98
[2017-01-18] MEDS: DILTIAZEM INJ 125 MG in SODIUM CHLORIDE 0.9% INJ 100 ML IV PRN ×3 (00:04→17:59)
[2017-01-18] MEDS: INSULIN ASPART SUPPLEMENTAL SCALE SQ SCH ×6 (01:00→20:36)
[2017-01-18] MEDS: METOPROLOL TARTRATE 5 MG/5 ML VIAL IV PUSH SCH ×8 (02:00→20:34)
[2017-01-18] MEDS: METOCLOPRAMIDE HCL 10 MG/2 ML VIAL IV PUSH SCH ×3 (02:00→17:59)
[2017-01-18] MEDS: SODIUM CHLORIDE 0.9% FLUSH 10 ML FLUSH IV FLUSH SCH ×3 (02:49→20:35)
[2017-01-18] MEDS: CHLORHEXIDINE GLUCONATE 2 % 1 PACK (2 CLOTHS) TOP SCH (04:00)
[2017-01-18] MEDS: SODIUM CHLORIDE 23.4% INJ 38.5 MEQ in WATER STERILE FOR INJ 1,000 ML IV SCH ×3 (04:43→20:35)
[2017-01-18] MEDS: HALOPERIDOL LACTATE 5 MG/ML AMP IV PRN (08:50)
[2017-01-18] MEDS: guaiFENesin E.R. 600 MG TAB PO SCH ×2 (08:51→20:36)
[2017-01-18] MEDS: ONDANSETRON HCL 4 MG/2 ML VIAL IV PUSH PRN (08:51)
[2017-01-18] MEDS: POTASSIUM PHOSPHATE MONOBASIC 500 MG TAB PO SCH ×2 (08:51→20:36)
[2017-01-18] MEDS: QUEtiapine FUMARATE 25 MG TAB PO SCH ×2 (08:51→20:36)
[2017-01-18] MEDS: DOCUSATE SODIUM 50 MG/SENNA 8.6 MG TAB PO SCH ×2 (08:51→20:36)
[2017-01-18] MEDS: CALCIUM CARBONATE 1.25 GM (CA 500 MG) TAB PO SCH ×3 (08:52→18:00)
[2017-01-18] MEDS: ASPIRIN EC 81 MG TABEC PO SCH (08:52)
[2017-01-18] MEDS ORDERED: SODIUM CHLORID 0.9% 500 ML INJ 500 ML IV ONE (09:00)
[2017-01-18 09:11] LABS: HEMOGLOBIN A1a 1.1 %; HEMOGLOBIN Ao 81.2 %; HEMOGLOBIN LA1C 3.3 %; HEMOGLOBIN P3 6.4 %
--- NOTE | 2017-01-18 09:13 | RADRPT ---
EXAM DATE/TIME: 01/18/2017 08:02 [place] COMPARISON: No previous studies available for comparison. INDICATIONS : Vomiting MEDICAL HISTORY : Stroke. Hypertension. Myocardial infarction SURGICAL HISTORY : None. ENCOUNTER: Initial ACUITY: 1 day PAIN SCORE: Non-responsive. LOCATION: Abdomen FINDINGS: Examination of the abdomen demonstrates a normal bowel gas pattern. No free air is identified. No o rganomegaly is evident. Osseous structures are intact. Mild degenerative changes are noted involving the thoracolumbar spine. CONCLUSION: No acute disease. Edward Mata MD on January 18, 2017 at 9:11 Board Certified Radiologist. This report was verified electronically.
--- NOTE | 2017-01-18 09:36 | HHI.PR ---
Subjective Remarks Follow-up for multiple medical concerns Patient is a little more cooperative today. Patient denies any pain. He stated that he is doing well. When I asked him again during examination with palpation he has any pain patient stated "why do you keep asking me if I have pain, do want me to have pain? Discussed with patient's nurse Destiney and she stated that patient was uncooperative this morning's labs were not obtained. She also stated that patient has small bouts of emesis brownish in color throughout the day. When I asked patient if he had vomiting he stated no. When asked me felt nauseous he stated no again. When I told patient I see there is some emesis on his bed he just looked at me. Patient heart rate is elevated he is on the Cardizem drip. Objective Vitals Vital Signs Date Time Temp Pulse Resp B/P (MAP) Pulse Ox O2 Delivery O2 Flow Rate FiO2 01/18/17 08:39 95 01/18/17 06:00 111 01/18/17 04:00 87 01/18/17 04:00 87 23 121/84 (96) 01/18/17 02:00 112 01/18/17 00:04 122 132/91 01/18/17 00:00 119 01/18/17 00:00 100.1 119 23 132/91 (105) 01/18/17 00:00 100.1 01/17/17 22:00 117 01/17/17 20:28 125 132/90 01/17/17 20:00 102.8 120 24 132/90 (104) 99 01/17/17 20:00 120 01/17/17 19:46 97 21 01/17/17 19:00 103 135/75 01/17/17 18:00 94 01/17/17 17:43 97 144/89 01/17/17 16:00 99 01/17/17 16:00 98.8 95 18 147/93 (111) 98 01/17/17 14:00 99 01/17/17 13:19 85 148/81 01/17/17 12:00 99 01/17/17 12:00 99.0 85 18 124/59 (80) 98 01/17/17 10:00 99 I/O 01/17/17 01/17/17 01/17/17 01/18/17 01/18/17 01/18/17 07:00 15:00 23:00 07:00 15:00 23:00 Intake Total 338 ml 310 ml 608 ml Output Total 900 ml 475 ml 1025 ml Balance -562 ml 310 ml 133 ml -1025 ml Intake Oral 140 ml 320 ml IV Total 198 ml 310 ml 288 ml Output Urine Total 900 ml 475 ml 1025 ml # Bowel Movements 0 0 Result Diagram: 01/17/17 0510 01/17/17 0510 Imaging Last Impressions Abdomen X-Ray 01/18/17 0000 Signed Impressions: Service Date/Time: Wednesday, January 18, 2017 08:02 - CONCLUSION: No acute disease. Edward Mata MD Chest X-Ray 01/14/17 1114 Signed Impressions: Service Date/Time: Saturday, January 14, 2017 11:54 - CONCLUSION: 1. Compensated cardiomegaly. 2. Minimal bibasilar airspace disease, likely atelectasis. 3. No significant interval change. Johnathon Ramon MD Head CT 01/10/17 1257 Signed Impressions: Service Date/Time: Tuesday, January 10, 2017 13:32 - CONCLUSION: No acute disease. Jermaine Malone Jr., MD Renal Ultrasound 01/10/17 0000 Signed Impressions: Service Date/Time: Tuesday, January 10, 2017 17:01 - CONCLUSION: Normal examination. Jermaine Malone Jr., MD Objective Remarks GENERAL: In no acute distress and is awake. CV: Irregular rate with tachycardia and irregular rhythm. No rubs murmurs or gallops. Resp: Clear to all station bilaterally Abdomen: Soft but distended. Negative tenderness palpation. No peritoneal signs. Extremity negative for any edema. Neuro: Patient will only answer some questions. He grossly moves all his extremity. Medications and IVs Current Medications Meclizine HCl (Antivert) 25 mg ONCE ONCE PO Last administered on 01/10/17 13 :42; Start 01/10/17 at 13:00; Stop 01/10/17 at 13:01; Status DC Sodium Chloride (NS Flush) 2 ml UNSCH PRN IVF FLUSH AFTER USING IV ACCESS; Start 01/10/17 at 13:00; Stop 01/10/17 at 22:25; Status DC Acetaminophen (Tylenol) 650 mg ONCE ONCE PO Last administered on 01/10/17 14 :07; Start 01/10/17 at 14:00; Stop 01/10/17 at 14:01; Status DC Insulin Human Regular (NovoLIN R INJ) 10 units ONCE ONCE IV PUSH Last administered on 01/10/17 16:14; Start 01/10/17 at 16:00; Stop 01/10/17 at 16 :01; Status DC Dextrose (D50w (Syr) Inj) 25 ml ONCE ONCE IV PUSH Last administered on 16:10; Start 01/10/17 at 16:00; Stop 01/10/17 at 16:01; Status DC Calcium Gluconate (Calcium Gluconate Inj) 1 gm ONCE ONCE IV PUSH Last administered on 01/10/17 16:09; Start 01/10/17 at 16:00; Stop 01/10/17 at 16 :01; Status DC Sodium Polystyrene Sulfonate (Kayexalate Liq) 15 gm ONCE ONCE PO ; Start 01/10 at 16:00; Stop 01/10/17 at 16:01; Status DC Sodium Bicarbonate 200 meq/Sodium Chloride 1,200 ml @ 100 mls/hr Q12H IV ; Start 01/10/17 at 16:15; Stop 01/11/17 at 14:47; Status DC Sodium Chloride 1,000 ml @ 999 mls/hr BOLUS ONCE IV Last administered on 16:43; Start 01/10/17 at 16:15; Stop 01/10/17 at 17:15; Status DC Sodium Chloride 1,000 ml @ 999 mls/hr BOLUS ONCE IV Last administered on 16:44; Start 01/10/17 at 16:15; Stop 01/10/17 at 17:15; Status DC Sodium Bicarbonate (Sodium Bicarbonate 8.4% Inj) 50 meq STK-MED ONCE .ROUTE ; Start 01/10/17 at 16:23; Stop 01/10/17 at 16:43; Status DC Sodium Bicarbonate 200 meq/Sterile Water 1,050 ml @ 150 mls/hr Q7H IV Last administered on 01/11/17 08:22; Start 01/10/17 at 16:45; Stop 01/11/17 at 14 :47; Status DC Sodium Chloride 1,000 ml @ 999 mls/hr BOLUS ONCE IV Last administered on 17:23; Start 01/10/17 at 17:00; Stop 01/10/17 at 18:00; Status DC Sodium Chloride 1,000 ml @ 999 mls/hr BOLUS ONCE IV Last administered on 17:23; Start 01/10/17 at 17:00; Stop 01/10/17 at 18:00; Status DC Sodium Chloride 1,000 ml @ 999 mls/hr BOLUS ONCE IV Last administered on 17:40; Start 01/10/17 at 17:00; Stop 01/10/17 at 18:00; Status DC Acetaminophen (Tylenol) 650 mg Q6H PRN PO PAIN SCALE 1 TO 4; Start 01/10/17 at 17:00 Albuterol Sulfate (Proair Hfa Inh) 2 puff Q6H PRN INH SHORTNESS OF BREATH; Start 01/10/17 at 17:00 Atorvastatin Calcium (Lipitor) 80 mg HS PO Last administered on 01/16/17 21: 53; Start 01/10/17 at 21:00 Nitroglycerin (Nitrostat Sl) 0.4 mg Q3H PRN SL CHEST PAIN; Start 01/10/17 at 17:00 Aspirin (Ecotrin Ec) 81 mg DAILY PO Last administered on 01/18/17 08:52; Start 01/10/17 at 17:00 Heparin Sodium/ Dextrose 250 ml @ 10 mls/hr TITRATE PRN IV Coagulation management Last administered on 01/11/17 01:03; Start 01/10/17 at 17:00; Stop 01/11/17 at 17:15; Status DC Insulin Aspart (NovoLOG SUPPLEMENTAL SCALE) 1 Q4H SQ Last administered on 01/17 08:59; Start 01/10/17 at 17:00 Sodium Chloride (NS Flush) 2 ml UNSCH PRN IV FLUSH FLUSH AFTER USING IV ACCESS ; Start 01/10/17 at 17:15; Stop 01/11/17 at 14:50; Status DC Sodium Chloride (NS Flush) 2 ml BID IV FLUSH Last administered on 01/18/17 08 :52; Start 01/10/17 at 21:00 Pantoprazole Sodium (Protonix) 40 mg DAILY PO ; Start 01/11/17 at 09:00; Stop 01/11/17 at 17:15; Status DC Miscellaneous Information 1 Q361D XX ; Start 01/10/17 at 17:15 Chlorhexidine Gluconate (Chlorhexidine 2% Cloth) Taper DAILY@04 TOP Last administered on 01/17/17 01:29; Start 01/11/17 at 04:00; Stop 01/07/18 at 03 :59 Chlorhexidine Gluconate (Chlorhexidine 2% Cloth) 3 pack UNSCH PRN TOP HYGIENIC CARE; Start 01/10/17 at 17:15 Senna/Docusate Sodium (Afia-Colace) 1 tab BID PO Last administered on 08:51; Start 01/10/17 at 21:00 Magnesium Hydroxide (Milk Of Magnesia Liq) 30 ml Q12H PRN PO Mild constipation ; Start 01/10/17 at 17:15 Sennosides (Senokot) 17.2 mg Q12H PRN PO Moderate constipation; Start at 17:15 Bisacodyl (Dulcolax Supp) 10 mg DAILY PRN RECTAL SEVERE CONSITIPATION; Start 01/10/17 at 17:15 Lactulose (Lactulose Liq) 30 ml DAILY PRN PO SEVERE CONSITIPATION; Start 01/10 at 17:15 Sodium Bicarbonate 0 ml @ As Directed STK-MED ONCE .ROUTE ; Start 01/10/17 at 17:23; Stop 01/10/17 at 17:24; Status DC Sodium Bicarbonate (Sodium Bicarbonate 8.4% Inj) 50 meq STK-MED ONCE .ROUTE ; Start 01/10/17 at 17:23; Stop 01/10/17 at 17:24; Status DC Sodium Chloride 1,000 ml @ 0 mls/hr Q0M PRN OTHER For Prime & Rinse Back Last administered on 01/10/17t 22:05; Start 01/10/17 at 17:47 Heparin Sodium (Porcine) (Heparin Inj) 8,000 units UNSCH PRN IV FLUSH WITH DIALYSIS; Start 01/10/17 at 18:00 Sodium Chloride 1,000 ml @ 200 mls/hr Q5H PRN IV WITH DIALYSIS; Start at 17:47 Sodium Chloride 1,000 ml @ 0 mls/hr Q0M PRN OTHER WITH DIALYSIS; Start at 17:47 Mannitol (Mannitol Inj) 12.5 gm UNSCH PRN IV WITH DIALYSIS; Start 01/10/17 at 18:00 Albumin Human 100 ml @ 60 mls/hr UNSCH PRN IV WITH DIALYSIS; Start 01/10/17 at 18:00 Sodium Chloride (NS Flush) 5 ml UNSCH PRN IV FLUSH WITH DIALYSIS; Start at 18:00 Heparin Sodium (Porcine) (Heparin Inj) UNSCH PRN .XX WITH DIALYSIS; Start at 18:00 Gentamicin Sulfate (Gentamicin (Dialysis) Inj) 20 mg UNSCH PRN OTHER WITH DIALYSIS Last administered on 01/10/17 22:03; Start 01/10/17 at 18:00 Ondansetron HCl (Zofran Inj) 4 mg UNSCH PRN IV PUSH WITH DIALYSIS Last administered on 01/18/17 08:51; Start 01/10/17 at 18:00 Acetaminophen (Tylenol) 650 mg UNSCH PRN PO for headach, pain, temp > 101F; Start 01/10/17 at 18:00 Diphenhydramine HCl (Benadryl) 25 mg UNSCH PRN PO for hives/itching/anaphylaxis ; Start 01/10/17 at 18:00 Nitroglycerin (Nitrostat Sl) 0.4 mg UNSCH PRN SL CHEST PAIN; Start 01/10/17 at 18:00 Clonidine (Catapres) 0.1 mg UNSCH PRN PO for BP > 180/100 X 2 readings Last administered on 01/15/17 02:07; Start 01/10/17 at 18:00 Gelatin (Gelfoam 12 Mm/7 Mm Top) 1 foam UNSCH PRN TOP SEE LABEL COMMENTS; Start 01/10/17 at 18:00 Dextrose (D50w (Vial) Inj) 50 ml UNSCH PRN IV PUSH HYPOGLYCEMIA-SEE COMMENTS Last administered on 01/10/17 18:05; Start 01/10/17 at 22:30 Glucagon (Glucagon Inj) 1 mg UNSCH PRN OTHER HYPOGLYCEMIA-SEE COMMENTS; Start 01/10/17 at 22:30 Dexmedetomidine HCl 200 mcg/ Sodium Chloride 52 ml @ 5.46 mls/hr TITRATE PRN IV SEDATION Last administered on 01/12/17 14:53; Start 01/11/17 at 00:00 Metoprolol Tartrate (Lopressor) 25 mg Q12HR PO Last administered on 01/15/17 08:48; Start 01/11/17 at 21:00; Stop 01/15/17 at 11:09; Status DC Metoprolol Tartrate (Lopressor Inj) 5 mg Q1HR PRN IV PUSH RAPID HEART RATE Last administered on 01/14/17 21:16; Start 01/11/17 at 11:15; Stop 01/15/17 at 11:09; Status DC Diltiazem HCl 125 mg/Sodium Chloride 125 ml @ 5 mls/hr TITRATE PRN IV Tachycardia Last administered on 01/15/17 10:45; Start 01/11/17 at 17:30; Stop 01/15/17 at 11:11; Status DC Sodium Chloride 1,000 ml @ 84 mls/hr [id number] IV Last administered on 01:04; Start 01/12/17 at 13:00; Stop 01/13/17 at 12:51; Status DC Haloperidol Lactate (Haldol Inj) 5 mg Q4H PRN IV agitation Last administered on 01/18/17 08:50; Start 01/12/17 at 17:00 Diltiazem HCl (Cardizem) 60 mg Q6HR PO Last administered on 01/15/17 07:03; Start 01/13/17 at 06:00; Stop 01/15/17 at 11:09; Status DC Sodium Chloride 38.5 meq/Sterile Water 1,009.625 ml @ 84 mls/hr Q12H2M IV Last administered on 01/18/17 04:43; Start 01/13/17 at 15:00 Metoclopramide HCl (Reglan Inj) 5 mg Q8H PRN IV PUSH NAUSEA OR VOMITING Last administered on 01/14/17 22:57; Start 01/14/17 at 11:15; Stop 01/15/17 at 08 :56; Status DC Potassium Chloride 100 ml @ 50 mls/hr Q2H IV Last administered on 01/14/17 15:19; Start 01/14/17 at 12:00; Stop 01/14/17 at 15:59; Status DC Hydralazine HCl (Apresoline Inj) 20 mg ONCE ONCE IV PUSH Last administered on 01/14/17 22:58; Start 01/14/17 at 23:00; Stop 01/14/17 at 23:01; Status DC Metoclopramide HCl (Reglan Inj) 5 mg Q8H IV PUSH Last administered on 08:50; Start 01/15/17 at 10:00 Hydralazine HCl (Apresoline Inj) 10 mg Q4H PRN IV PUSH SYS BP GREATER THAN 160 MMHG; Start 01/15/17 at 10:00 Potassium Chloride 100 ml @ 100 mls/hr Q1H IV ; Start 01/15/17 at 10:00; Stop 01/15/17 at 10:00; Status DC Potassium Chloride 100 ml @ 50 mls/hr Q2H IV Last administered on 01/16/17 06:11; Start 01/15/17 at 10:00; Status Future Hold Diltiazem HCl 125 mg/Sodium Chloride 125 ml @ 15 mls/hr TITRATE PRN IV Tachycardia Last administered on 01/18/17 00:04; Start 01/15/17 at 17:30 Metoprolol Tartrate (Lopressor Inj) 5 mg Q4H IV PUSH Last administered on 01/16 08:48; Start 01/15/17 at 12:00; Stop 01/16/17 at 09:17; Status DC Heparin Sodium (Porcine) (Heparin Inj) 4,000 units NOW STAT IV PUSH ; Start at 11:11; Stop 01/15/17 at 11:12; Status Cancel Heparin Sodium (Porcine) (Heparin Inj) 5,000 units UNSCH PRN IV PUSH APTT LESS THAN 25; Start 01/15/17 at 17:15 Heparin Sodium (Porcine) (Heparin Inj) 2,500 units UNSCH PRN IV PUSH APTT 25 TO 39 Last administered on 01/16/17 06:17; Start 01/15/17 at 17:15 Heparin Sodium/ Dextrose 250 ml @ 10 mls/hr TITRATE PRN IV Coagulation management; Start 01/15/17 at 11:15; Status Cancel Heparin Sodium (Porcine) (Heparin Inj) 4,000 units NOW STAT IV PUSH Last administered on 01/15/17 15:45; Start 01/15/17 at 15:45; Stop 01/15/17 at 15 :51; Status DC Heparin Sodium/ Dextrose 250 ml @ 10 mls/hr TITRATE PRN IV Coagulation management Last administered on 01/16/17 18:15; Start 01/15/17 at 16:00 Clonidine (Catapres-Tts 0.3 Mg Patch.7d) 1 patch Q7D T-DERMAL Last administered on 01/16/17 14:14; Start 01/16/17 at 10:00 Metoprolol Tartrate (Lopressor Inj) 5 mg Q3H IV PUSH Last administered on 01/18 08:52; Start 01/16/17 at 11:00 Miscellaneous Information 1 Q7D T-DERMAL Last administered on 01/16/17 10:00 ; Start 01/16/17 at 10:00 Guaifenesin (Mucinex Er) 600 mg BID PO Last administered on 01/18/17 08:51; Start 01/16/17 at 21:00 Magnesium Sulfate/ Dextrose 100 ml @ 100 mls/hr ONCE ONCE IV Last administered on 01/16/17 14:14; Start 01/16/17 at 12:00; Stop 01/16/17 at 12 :59; Status DC Magnesium Sulfate/ Dextrose 100 ml @ 100 mls/hr Q1H IV Last administered on 11:45; Start 01/17/17 at 10:45; Stop 01/17/17 at 12:44; Status DC Calcium Gluconate 1 gm/Sodium Chloride 110 ml @ 110 mls/hr ONCE ONCE IV Last administered on 01/17/17 12:00; Start 01/17/17 at 12:00; Stop 01/17/17 at 12 :59; Status DC Calcium Carbonate (Oscal) 500 mg TID PO Last administered on 01/18/17 08:52; Start 01/17/17 at 13:00 Potassium Phosphate (K-Phos) 500 mg Q12HR PO Last administered on 01/18/17 08 :51; Start 01/17/17 at 14:00 Quetiapine Fumarate (SEROquel) 25 mg BID PO Last administered on 01/18/17 08: 51; Start 01/17/17 at 21:00 Sodium Chloride 500 ml @ 500 mls/hr BOLUS ONCE IV ; Start 01/18/17 at 09:00; Stop 01/18/17 at 09:59 A/P Problem List: (1) Acute on chronic kidney failure ICD Code: N17.9 - Acute kidney failure, unspecified; N18.9 - Chronic kidney disease, unspecified (2) Combined metabolic and respiratory acidosis (3) Acute metabolic encephalopathy ICD Code: G93.41 - Metabolic encephalopathy (4) NSTEMI (non-ST elevated myocardial infarction) ICD Code: I21.4 - Non-ST elevation (NSTEMI) myocardial infarction (5) Hyperkalemia ICD Code: E87.5 - Hyperkalemia Status: Acute (6) Metabolic acidemia ICD Code: E87.2 - Acidosis (7) History of CVA (cerebrovascular accident) ICD Code: Z86.73 - Personal history of transient ischemic attack (TIA), and cerebral infarction without residual deficits (8) Diabetes ICD Code: E11.9 - Type 2 diabetes mellitus without complications Status: Acute (9) HTN (hypertension) ICD Code: I10 - Essential (primary) hypertension Status: Chronic Assessment and Plan 56-year-old male admitted with acute metabolic encephalopathy, acute on chronic renal failure. Patient is seen in the ICU. Acute metabolic encephalopathy Agitated Delirium History of previous CVA with left hemiparesis - Psychiatrist evaluated the patient and stated that patient is still delirious and does not have the capacity to make medical decisions. -Will need to use Haldol or nonviolent restraints as needed in order to manage patient. Discussed with patient's nurse Destiney and stated that patient cannot refuse any labs or imaging. -Most likely delirium is metabolic due to underlying conditions. - s/p Precedex drip Probable COPD Severe combined metabolic and respiratory acidosis - resolved. Past Tobacco abuse - Nasal cannula oxygen, protecting airway - DuoNeb every 6 hours and when necessary MUCINEX IF TOLERATED DIET Atrial flutter with rapid ventricular response - Elevated troponin History of coronary artery disease HTN -Patient evaluate by electric meter installer helper recommend Cardizem and metoprolol IV until patient at home medication down. Also recommend starting oral warfarin if patient able take oral intake. Questionable if patient will be compliant with this. -As per patient elevated troponin he is asymptomatic. Echo showed normal function and a recent nonischemic nuclear stress stress test. Per electric meter installer helper this is most likely secondary to his renal failure, anemia and metabolic derangements. -Will give a fluid bolus since patient is tachycardic most likely secondary to decreased oral intake. Acute on chronic kidney failure/ABNER Hyperkalemia Severe metabolic acidosis - resolved. - Status post emergency HD for hyperkalemia acute renal failure and severe acidosis on 01/10/17 - Monitor renal function closely and it is slowly improving Cr 1.92 today. [place] catheter. Renal US normal. - s/p Aggressive resuscitation with 4.5L crystalloids and bicarbonate infusion 150 ml per hour. Now bicarb off - Dialysis on hold. -Pending blood work that was ordered this morning. Hypocalcemia/hypo-magnesium -Will need to replenish electrolytes. -Still pending blood work that was ordered for this morning. Discussed with patient's nurse. Nausea/vomiting -zofran prn -added scheduled reglan -KUB done this morning negative. Type 2 diabetes Hyperglycemia Dyslipidemia - Sliding-scale insulin PROPH: - Bilateral lower extremity SCDs. Heparin IV DCd, protonix 40 mg IV q12 Discharge Planning Patient still has during him that is interfering with care. Discussed with patient's nurse Destiney will need to use when necessary medication and if needed restraints since patient is refusing care intermittently. I need labs and imaging to help assist with care. Problem Qualifiers (1) Diabetes: (2) HTN (hypertension): Qualified Codes: I10 - Essential (primary) hypertension Paige Fitzgerald MD Jan 18, 2017 09:36
[2017-01-18 10:57] LABS: HEMATOCRIT 30.7 % (39.0-51.0); MEAN CELL VOLUME 88.6 FL (80.0-100.0); MEAN CORPUSCULAR HEMOGLOBIN 29.2 PG (27.0-34.0); PLATELET COUNT 96 TH/MM3 (150-450); RED BLOOD COUNT 3.47 MIL/MM3 (4.50-5.90); RED CELL DISTRIBUTION WIDTH 14.4 % (11.6-17.2); WHITE BLOOD COUNT 14.8 TH/MM3 (4.0-11.0)
[2017-01-18 10:59] LABS: REVIEW FLAG FINAL
[2017-01-18 11:07] LABS: APTT (PATIENT) 61.9 SEC (24.3-30.1)
[2017-01-18 11:40] LABS: BICARBONATE 25.3 MEQ/L (21.0-32.0); MAGNESIUM 1.4 MG/DL (1.5-2.5); POTASSIUM 3.4 MEQ/L (3.5-5.1)
[2017-01-18 12:07] LABS: CALCIUM-PROTEIN CORRECTED 6.8 MG/DL (8.5-10.1)
[2017-01-18] MEDS ORDERED: MAGNESIUM SULFATE 1 GM PREMIX 100 ML IV ONE (12:30)
[2017-01-18] MEDS ORDERED: CALCIUM GLUCONATE INJ 1 GM in DEXTROSE 5% IN WATER 100ML INJ 100 ML IV ONE ×2 (12:30)
--- NOTE | 2017-01-18 12:30 | HHI.NPPN ---
Subjective History of Present Illness 56-year-old male with past medical history of chronic kidney disease, diabetes mellitus, history of cerebrovascular accident with hemiparesis, ischemic heart disease, hypertension, atrial fibrillation who came to the hospital with generalized weakness and dizziness. I was called to see the patient because of very high BUN and creatinine, metabolic acidosis and hyperkalemia. The patient has known history of chronic kidney disease and his baseline creatinine seems to me in the range of 1.6 to 2.2. Additional Remarks Patient is not cooperating not eating well Review of Systems General Constitutional: Fatigue Cardiovascular Cardiac: [id number] Objective Data Data 01/18/17 01/19/17 19:00 07:00 Intake Total 500 ml Balance 500 ml IV Total 500 ml Vital Signs Date Time Temp Pulse Resp B/P (MAP) Pulse Ox O2 Delivery O2 Flow Rate FiO2 01/18/17 12:00 99.3 128 18 124/82 (96) 98 01/18/17 12:00 130 01/18/17 10:00 130 01/18/17 10:00 103 124/82 01/18/17 09:00 96 148/69 01/18/17 08:39 95 01/18/17 08:00 99.3 95 18 147/93 (111) 98 01/18/17 08:00 120 01/18/17 06:00 111 01/18/17 04:00 87 01/18/17 04:00 87 23 121/84 (96) 01/18/17 02:00 112 01/18/17 00:04 122 132/91 01/18/17 00:00 119 01/18/17 00:00 100.1 119 23 132/91 (105) 01/18/17 00:00 100.1 01/17/17 22:00 117 01/17/17 20:28 125 132/90 01/17/17 20:00 102.8 120 24 132/90 (104) 99 01/17/17 20:00 120 01/17/17 19:46 97 21 01/17/17 19:00 103 135/75 01/17/17 18:00 94 01/17/17 17:43 97 144/89 01/17/17 16:00 99 01/17/17 16:00 98.8 95 18 147/93 (111) 98 01/17/17 14:00 99 01/17/17 13:19 85 148/81 -: 01/18/17 1006 01/18/17 1006 Physical Exam General Appearance: No Acute Distress, Comfortable, Anxious Throat Throat Exam: Oral Mucosa [place] & Moist Pulmonary Resp Exam: Breath Sounds Equal, No Distress, Rhonchi, Decreased Bases, Diminished Breath Sounds Cardiology CV Exam: Regular, Normal Sinus Rhythm Gastrointestinal/Abdomen GI Exam: Soft, Non-Tender, Bowel Sounds Present Extremeties Extremities Exam: Trace Edema Neurologic Neuro Exam: Alert, Awake Assessment/Plan Assessment Summary: ABNER/Acute Renal Failure, CKD Stage III Electrolyte Assessment: Hyperkalemia, Hypocalcemia, Metabolic Acidosis Problem List: (1) History of CVA (cerebrovascular accident) Status: Chronic (2) HTN (hypertension) ICD Codes: I10 - Essential (primary) hypertension Status: Chronic (3) Diabetes ICD Codes: E11.9 - Type 2 diabetes mellitus without complications Status: Acute (4) Metabolic acidemia ICD Codes: E87.2 - Acidosis (5) Hyperkalemia ICD Codes: E87.5 - Hyperkalemia Status: Acute (6) Acute renal failure ICD Codes: N17.9 - Acute kidney failure, unspecified Status: Acute Plan Patient has chronic kidney disease and develop ABNER. Also had metabolic acidosis and Hyperkalemia. Patient has HD done Thursday and then started resolving ARF ATN resolving Cr higher not eating well cr 2.1 again as not taking enough liquids not cooperating Magnesium replaced again, Ca replaced, KPO4 , Calcium low due to hypomagnesemia Problem Qualifiers (1) HTN (hypertension): Qualified Codes: I10 - Essential (primary) hypertension (2) Diabetes: (3) Acute renal failure: Qualified Codes: N17.9 - Acute kidney failure, unspecified Parth Ruiz MD Jan 18, 2017 12:30
[2017-01-18] MEDS ORDERED: POTASSIUM CHLORIDE 20 MEQ CONTROLLED RELEASE TAB PO ONE (14:00)
[2017-01-18] MEDS: HEPARIN-D5W 25,000 U/250 ML 250 ML IV PRN (15:20)
[2017-01-18] MEDS: ATORVASTATIN 80 MG TAB PO SCH (20:36)
[2017-01-19] VITALS (10 sets, daily range): BP systolic 97–155; BP diastolic 63–87; PULSE 84–116; RESP 20–25; TEMP 98.2–98.8; O2SAT 94–98
[2017-01-19] MEDS: METOPROLOL TARTRATE 5 MG/5 ML VIAL IV PUSH SCH ×3 (00:31→05:00)
[2017-01-19] MEDS: METOCLOPRAMIDE HCL 10 MG/2 ML VIAL IV PUSH SCH ×3 (00:32→18:43)
[2017-01-19] MEDS: INSULIN ASPART SUPPLEMENTAL SCALE SQ SCH ×6 (00:32→20:04)
[2017-01-19] MEDS: SODIUM CHLORIDE 23.4% INJ 38.5 MEQ in WATER STERILE FOR INJ 1,000 ML IV SCH ×2 (00:32→15:24)
[2017-01-19] MEDS: DILTIAZEM INJ 125 MG in SODIUM CHLORIDE 0.9% INJ 100 ML IV PRN (00:59)
[2017-01-19] MEDS: CHLORHEXIDINE GLUCONATE 2 % 1 PACK (2 CLOTHS) TOP SCH (02:31)
[2017-01-19 07:51] LABS: HEMATOCRIT 32.6 % (39.0-51.0); MEAN CELL VOLUME 88.1 FL (80.0-100.0); MEAN CORPUSCULAR HEMOGLOBIN 28.7 PG (27.0-34.0); MEAN CORPUSCULAR HGB CONC 32.6 % (32.0-36.0); PLATELET COUNT 109 TH/MM3 (150-450); RED CELL DISTRIBUTION WIDTH 14.5 % (11.6-17.2); REVIEW FLAG FINAL; WHITE BLOOD COUNT 12.8 TH/MM3 (4.0-11.0)
[2017-01-19 07:57] LABS: APTT (PATIENT) 51.6 SEC (24.3-30.1)
--- NOTE | 2017-01-19 07:58 | PD.CARD.PN ---
Subjective Subjective Remarks Denies CP, palpitations, dizziness, dyspnea. Nausea resolved. Objective Medications Item Value Date Time Potassium 500 mg 01/17/17 1400 Phosphate Q12HR/PO (K-Phos) Metoprolol 5 mg 01/16/17 1100 Tartrate Q3H/IV PUSH (Lopressor Inj) Clonidine 1 patch 01/16/17 1000 (Catapres-Tts Q7D/T-DERMAL 01/16/17 1414 0.3 Mg Patch.7d) Diltiazem HCl 125 125 ml @ 15 mls/hr 01/15/17 1730 mg/Sodium Chloride TITRATE PRN/IV 01/19/17 0059 Heparin Sodium/ 250 ml @ 10 mls/hr 01/15/17 1600 Dextrose TITRATE PRN/IV 01/18/17 1520 Atorvastatin 80 mg 01/10/17 2100 Calcium HS/PO (Lipitor) Aspirin 81 mg 01/10/17 1700 (Ecotrin Ec) DAILY/PO 01/18/17 0852 Current Medications Medications (Trade) Dose Ordered Sig/Mansi Route Start Time Stop Time Status Last Admin (Tylenol) 650 mg Q6H PRN PO 01/10/17 17:00 (Proair Hfa Inh) 2 puff Q6H PRN INH 01/10/17 17:00 (Lipitor) 80 mg HS PO 01/10/17 21:00 01/16/17 21:53 (Nitrostat Sl) 0.4 mg Q3H PRN SL 01/10/17 17:00 (Ecotrin Ec) 81 mg DAILY PO 01/10/17 17:00 01/18/17 08:52 (NovoLOG SUPPLEMENTAL SCALE) 1 Q4H SQ 01/10/17 17:00 01/17/17 08:59 (NS Flush) 2 ml BID IV FLUSH 01/10/17 21:00 01/18/17 08:52 Miscellaneous Information 1 Q361D XX 01/10/17 17:15 (Chlorhexidine 2% Cloth) Taper DAILY@04 TOP 01/11/17 04:00 01/07/18 03:59 01/17/17 01:29 (Chlorhexidine 2% Cloth) 3 pack UNSCH PRN TOP 01/10/17 17:15 (Afia-Colace) 1 tab BID PO 01/10/17 21:00 01/18/17 08:51 (Milk Of Magnesia Liq) 30 ml Q12H PRN PO 01/10/17 17:15 (Senokot) 17.2 mg Q12H PRN PO 01/10/17 17:15 (Dulcolax Supp) 10 mg DAILY PRN RECTAL 01/10/17 17:15 (Lactulose Liq) 30 ml DAILY PRN PO 01/10/17 17:15 Sodium Chloride 1,000 ml @ 0 mls/hr Q0M PRN OTHER 01/10/17 17:47 01/10/17 22:05 (Heparin Inj) 8,000 units UNSCH PRN IV FLUSH 01/10/17 18:00 Sodium Chloride 1,000 ml @ 200 mls/hr Q5H PRN IV 01/10/17 17:47 Sodium Chloride 1,000 ml @ 0 mls/hr Q0M PRN OTHER 01/10/17 17:47 (Mannitol Inj) 12.5 gm UNSCH PRN IV 01/10/17 18:00 Albumin Human 100 ml @ 60 mls/hr UNSCH PRN IV 01/10/17 18:00 (NS Flush) 5 ml UNSCH PRN IV FLUSH 01/10/17 18:00 (Heparin Inj) UNSCH PRN .XX 01/10/17 18:00 (Gentamicin (Dialysis) Inj) 20 mg UNSCH PRN OTHER 01/10/17 18:00 01/10/17 22:03 (Zofran Inj) 4 mg UNSCH PRN IV PUSH 01/10/17 18:00 01/18/17 08:51 (Tylenol) 650 mg UNSCH PRN PO 01/10/17 18:00 (Benadryl) 25 mg UNSCH PRN PO 01/10/17 18:00 (Nitrostat Sl) 0.4 mg UNSCH PRN SL 01/10/17 18:00 (Catapres) 0.1 mg UNSCH PRN PO 01/10/17 18:00 01/15/17 02:07 (Gelfoam 12 Mm/7 Mm Top) 1 foam UNSCH PRN TOP 01/10/17 18:00 (D50w (Vial) Inj) 50 ml UNSCH PRN IV PUSH 01/10/17 22:30 01/10/17 18:05 (Glucagon Inj) 1 mg UNSCH PRN OTHER 01/10/17 22:30 Dexmedetomidine HCl 200 mcg/ Sodium Chloride 52 ml @ 5.46 mls/hr TITRATE PRN IV 01/11/17 00:00 01/12/17 14:53 (Haldol Inj) 5 mg Q4H PRN IV 01/12/17 17:00 01/18/17 08:50 Sodium Chloride 38.5 meq/Sterile Water 1,009.625 ml @ 84 mls/hr Q12H2M IV 01/13/17 15:00 01/19/17 00:32 (Reglan Inj) 5 mg Q8H IV PUSH 01/15/17 10:00 01/19/17 00:32 (Apresoline Inj) 10 mg Q4H PRN IV PUSH 01/15/17 10:00 Potassium Chloride 100 ml @ 50 mls/hr Q2H IV 01/15/17 10:00 Future Hold 01/16/17 06:11 Diltiazem HCl 125 mg/Sodium Chloride 125 ml @ 15 mls/hr TITRATE PRN IV 01/15/17 17:30 01/19/17 00:59 (Heparin Inj) 5,000 units UNSCH PRN IV PUSH 01/15/17 17:15 (Heparin Inj) 2,500 units UNSCH PRN IV PUSH 01/15/17 17:15 01/16/17 06:17 Heparin Sodium/ Dextrose 250 ml @ 10 mls/hr TITRATE PRN IV 01/15/17 16:00 01/18/17 15:20 (Catapres-Tts 0.3 Mg Patch.7d) 1 patch Q7D T-DERMAL 01/16/17 10:00 01/16/17 14:14 (Lopressor Inj) 5 mg Q3H IV PUSH 01/16/17 11:00 01/19/17 02:31 Miscellaneous Information 1 Q7D T-DERMAL 01/16/17 10:00 01/16/17 10:00 (Mucinex Er) 600 mg BID PO 01/16/17 21:00 01/18/17 08:51 (Oscal) 500 mg TID PO 01/17/17 13:00 01/18/17 12:48 (K-Phos) 500 mg Q12HR PO 01/17/17 14:00 01/18/17 08:51 (SEROquel) 25 mg BID PO 01/17/17 21:00 01/18/17 08:51 Vital Signs / I&O Vital Signs Date Time Temp Pulse Resp B/P (MAP) Pulse Ox O2 Delivery O2 Flow Rate FiO2 01/19/17 04:00 98.4 94 22 138/82 (100) 98 01/19/17 00:59 110 137/70 01/19/17 00:00 98.7 107 23 126/79 (95) 98 01/18/17 22:00 01/18/17 20:00 01/18/17 20:00 99.0 107 15 107/71 (83) 98 01/18/17 18:00 130 01/18/17 17:59 96 107/63 01/18/17 16:00 99.8 103 18 107/72 (84) 98 01/18/17 16:00 130 01/18/17 14:00 130 01/18/17 12:00 99.3 128 18 124/82 (96) 98 01/18/17 12:00 130 01/18/17 10:00 130 01/18/17 10:00 103 124/82 01/18/17 09:00 96 148/69 01/18/17 08:39 95 01/18/17 08:00 99.3 95 18 147/93 (111) 98 01/18/17 08:00 120 I/O 01/18/17 01/18/17 01/18/17 01/19/17 01/19/17 01/19/17 07:00 15:00 23:00 07:00 15:00 23:00 Intake Total 710 ml 1113 ml 240 ml Output Total 1025 ml 550 ml 1100 ml Balance -1025 ml 710 ml 563 ml -860 ml Intake Oral 50 ml 240 ml IV Total 710 ml 1063 ml Output Urine Total 1025 ml 550 ml 1100 ml # Bowel Movements 0 0 Physical Exam GENERAL: Well developed, well nourished. No acute distress. HEENT: Jugular venous pressure is normal. CHEST: Lungs clear to auscultation bilaterally. Unlabored respiratory effort. CARDIAC: Irregular rhythm without S3, S4, or murmur. ABDOMEN: Soft, nontender, no hepatosplenomegaly. Bowel sounds present. EXTREMITIES: No clubbing, cyanosis, or edema. Laboratory Laboratory Tests Test 01/18/17 10:06 01/19/17 07:01 White Blood Count 14.8 TH/MM3 12.8 TH/MM3 Red Blood Count 3.47 MIL/MM3 3.70 MIL/MM3 Hemoglobin 10.1 GM/DL 10.6 GM/DL Hematocrit 30.7 % 32.6 % Mean Corpuscular Volume 88.6 FL 88.1 FL Mean Corpuscular Hemoglobin 29.2 PG 28.7 PG Mean Corpuscular Hemoglobin Concent 33.0 % 32.6 % Red Cell Distribution Width 14.4 % 14.5 % Platelet Count 96 TH/MM3 109 TH/MM3 Mean Platelet Volume 9.5 FL 10.3 FL Activated Partial Thromboplast Time 61.9 SEC Blood Urea Nitrogen 28 MG/DL Creatinine 2.18 MG/DL Random Glucose 157 MG/DL Total Protein 6.2 GM/DL Calcium Level 6.4 MG/DL Phosphorus Level 1.5 MG/DL Magnesium Level 1.4 MG/DL Sodium Level 139 MEQ/L Potassium Level 3.4 MEQ/L Chloride Level 103 MEQ/L Carbon Dioxide Level 25.3 MEQ/L Anion Gap 11 MEQ/L Estimat Glomerular Filtration Rate 38 ML/MIN Protein Corrected Calcium 6.8 MG/DL Assessment and Plan Problem List: (1) Atrial flutter ICD Codes: I48.92 - Unspecified atrial flutter Status: Acute Plan: Monitor this morning more c/w atrial fibrillation. Patient otherwise asymptomatic from the arrhythmia. Left ventricular function by echo normal. With his history of CVA, hypertension, diabetes, his thromboembolic risk is at least moderately elevated. REC try to change Cardizem and metoprolol to po start warfarin (2) Elevated troponin ICD Codes: R74.8 - Abnormal levels of other serum enzymes Status: Acute Plan: Stable. No angina like symptoms recently. Normal LV function by echo, recent non-ischemic nuclear stress; likely due to his renal failure, anemia, and metabolic derangements. (3) HTN (hypertension) ICD Codes: I10 - Essential (primary) hypertension Status: Chronic Plan: Better BP control on multidrug regimen. Code Status full code Discussed Condition With patient Problem Qualifiers (1) Atrial flutter: Qualified Codes: I48.3 - Typical atrial flutter (2) HTN (hypertension): Qualified Codes: I10 - Essential (primary) hypertension Nikolay Oliveros MD Jan 19, 2017 07:58
[2017-01-19 08:11] LABS: BICARBONATE 24.1 MEQ/L (21.0-32.0); POTASSIUM 3.5 MEQ/L (3.5-5.1)
[2017-01-19] MEDS: guaiFENesin E.R. 600 MG TAB PO SCH ×3 (08:14→20:04)
[2017-01-19] MEDS: ASPIRIN EC 81 MG TABEC PO SCH ×2 (08:15→08:36)
[2017-01-19] MEDS: CALCIUM CARBONATE 1.25 GM (CA 500 MG) TAB PO SCH ×3 (08:15→18:42)
[2017-01-19] MEDS: QUEtiapine FUMARATE 25 MG TAB PO SCH ×3 (08:15→20:04)
[2017-01-19] MEDS: DOCUSATE SODIUM 50 MG/SENNA 8.6 MG TAB PO SCH ×3 (08:15→20:04)
[2017-01-19] MEDS: POTASSIUM PHOSPHATE MONOBASIC 500 MG TAB PO SCH ×2 (08:15→20:03)
[2017-01-19] MEDS: SODIUM CHLORIDE 0.9% FLUSH 10 ML FLUSH IV FLUSH SCH ×2 (08:16→20:03)
[2017-01-19] MEDS: DILTIAZEM HCL 90 MG TAB PO SCH ×3 (08:35→18:42)
--- NOTE | 2017-01-19 10:44 | HHI.PR ---
Subjective Remarks Follow-up for multiple medical conditions Patient was sleeping but woken up by me. His nurse Chavo was at the bedside during the interview. Patient has no complaints. Denied any nausea, abdominal pain, or any concerns. When I asked examine him if I can examine him he initially allowed me to exam him but when I had to listen to his lung sounds he stated no that I can no longer exam him until he finish eating. When I try to convince him to allow me to finish she continued to refuse. Patient refuses medication this morning. He is fully aware of what he is doing and requesting. Objective Vitals Vital Signs Date Time Temp Pulse Resp B/P (MAP) Pulse Ox O2 Delivery O2 Flow Rate FiO2 01/19/17 10:04 98.8 109 20 127/75 (92) 97 01/19/17 08:00 109 01/19/17 04:00 98.4 94 22 138/82 (100) 98 01/19/17 00:59 110 137/70 01/19/17 00:00 98.7 107 23 126/79 (95) 98 01/18/17 22:00 01/18/17 20:00 01/18/17 20:00 99.0 107 15 107/71 (83) 98 01/18/17 18:00 130 01/18/17 17:59 96 107/63 01/18/17 16:00 99.8 103 18 107/72 (84) 98 01/18/17 16:00 130 01/18/17 14:00 130 01/18/17 12:00 99.3 128 18 124/82 (96) 98 01/18/17 12:00 130 I/O 01/18/17 01/18/17 01/18/17 01/19/17 01/19/17 01/19/17 07:00 15:00 23:00 07:00 15:00 23:00 Intake Total 710 ml 1113 ml 240 ml Output Total 1025 ml 550 ml 1100 ml Balance -1025 ml 710 ml 563 ml -860 ml Intake Oral 50 ml 240 ml IV Total 710 ml 1063 ml Output Urine Total 1025 ml 550 ml 1100 ml # Bowel Movements 0 0 Result Diagram: 01/19/1770001/19/17700 Objective Remarks GENERAL: In no acute distress and is awake. CV: Irregular rate with tachycardia and irregular rhythm. No rubs murmurs or gallops. Resp: Clear to all station bilaterally Abdomen: Soft but distended. Negative tenderness palpation. No peritoneal signs. Extremity negative for any edema. Neuro: Patient will only answer some questions. He grossly moves all his extremity. Medications and IVs Current Medications Meclizine HCl (Antivert) 25 mg ONCE ONCE PO Last administered on 01/10/17 13 :42; Start 01/10/17 at 13:00; Stop 01/10/17 at 13:01; Status DC Sodium Chloride (NS Flush) 2 ml UNSCH PRN IVF FLUSH AFTER USING IV ACCESS; Start 01/10/17 at 13:00; Stop 01/10/17 at 22:25; Status DC Acetaminophen (Tylenol) 650 mg ONCE ONCE PO Last administered on 01/10/17 14 :07; Start 01/10/17 at 14:00; Stop 01/10/17 at 14:01; Status DC Insulin Human Regular (NovoLIN R INJ) 10 units ONCE ONCE IV PUSH Last administered on 01/10/17 16:14; Start 01/10/17 at 16:00; Stop 01/10/17 at 16 :01; Status DC Dextrose (D50w (Syr) Inj) 25 ml ONCE ONCE IV PUSH Last administered on 16:10; Start 01/10/17 at 16:00; Stop 01/10/17 at 16:01; Status DC Calcium Gluconate (Calcium Gluconate Inj) 1 gm ONCE ONCE IV PUSH Last administered on 01/10/17 16:09; Start 01/10/17 at 16:00; Stop 01/10/17 at 16 :01; Status DC Sodium Polystyrene Sulfonate (Kayexalate Liq) 15 gm ONCE ONCE PO ; Start 01/10 at 16:00; Stop 01/10/17 at 16:01; Status DC Sodium Bicarbonate 200 meq/Sodium Chloride 1,200 ml @ 100 mls/hr Q12H IV ; Start 01/10/17 at 16:15; Stop 01/11/17 at 14:47; Status DC Sodium Chloride 1,000 ml @ 999 mls/hr BOLUS ONCE IV Last administered on 16:43; Start 01/10/17 at 16:15; Stop 01/10/17 at 17:15; Status DC Sodium Chloride 1,000 ml @ 999 mls/hr BOLUS ONCE IV Last administered on 16:44; Start 01/10/17 at 16:15; Stop 01/10/17 at 17:15; Status DC Sodium Bicarbonate (Sodium Bicarbonate 8.4% Inj) 50 meq STK-MED ONCE .ROUTE ; Start 01/10/17 at 16:23; Stop 01/10/17 at 16:43; Status DC Sodium Bicarbonate 200 meq/Sterile Water 1,050 ml @ 150 mls/hr Q7H IV Last administered on 01/11/17 08:22; Start 01/10/17 at 16:45; Stop 01/11/17 at 14 :47; Status DC Sodium Chloride 1,000 ml @ 999 mls/hr BOLUS ONCE IV Last administered on 17:23; Start 01/10/17 at 17:00; Stop 01/10/17 at 18:00; Status DC Sodium Chloride 1,000 ml @ 999 mls/hr BOLUS ONCE IV Last administered on 17:23; Start 01/10/17 at 17:00; Stop 01/10/17 at 18:00; Status DC Sodium Chloride 1,000 ml @ 999 mls/hr BOLUS ONCE IV Last administered on 17:40; Start 01/10/17 at 17:00; Stop 01/10/17 at 18:00; Status DC Acetaminophen (Tylenol) 650 mg Q6H PRN PO PAIN SCALE 1 TO 4; Start 01/10/17 at 17:00 Albuterol Sulfate (Proair Hfa Inh) 2 puff Q6H PRN INH SHORTNESS OF BREATH; Start 01/10/17 at 17:00 Atorvastatin Calcium (Lipitor) 80 mg HS PO Last administered on 01/16/17 21: 53; Start 01/10/17 at 21:00 Nitroglycerin (Nitrostat Sl) 0.4 mg Q3H PRN SL CHEST PAIN; Start 01/10/17 at 17:00 Aspirin (Ecotrin Ec) 81 mg DAILY PO Last administered on 01/18/17 08:52; Start 01/10/17 at 17:00 Heparin Sodium/ Dextrose 250 ml @ 10 mls/hr TITRATE PRN IV Coagulation management Last administered on 01/11/17 01:03; Start 01/10/17 at 17:00; Stop 01/11/17 at 17:15; Status DC Insulin Aspart (NovoLOG SUPPLEMENTAL SCALE) 1 Q4H SQ Last administered on 01/17 08:59; Start 01/10/17 at 17:00 Sodium Chloride (NS Flush) 2 ml UNSCH PRN IV FLUSH FLUSH AFTER USING IV ACCESS ; Start 01/10/17 at 17:15; Stop 01/11/17 at 14:50; Status DC Sodium Chloride (NS Flush) 2 ml BID IV FLUSH Last administered on 01/19/17 08 :16; Start 01/10/17 at 21:00 Pantoprazole Sodium (Protonix) 40 mg DAILY PO ; Start 01/11/17 at 09:00; Stop 01/11/17 at 17:15; Status DC Miscellaneous Information 1 Q361D XX ; Start 01/10/17 at 17:15 Chlorhexidine Gluconate (Chlorhexidine 2% Cloth) Taper DAILY@04 TOP Last administered on 01/17/17 01:29; Start 01/11/17 at 04:00; Stop 01/07/18 at 03 :59 Chlorhexidine Gluconate (Chlorhexidine 2% Cloth) 3 pack UNSCH PRN TOP HYGIENIC CARE; Start 01/10/17 at 17:15 Senna/Docusate Sodium (Afia-Colace) 1 tab BID PO Last administered on 08:51; Start 01/10/17 at 21:00 Magnesium Hydroxide (Milk Of Magnesia Liq) 30 ml Q12H PRN PO Mild constipation ; Start 01/10/17 at 17:15 Sennosides (Senokot) 17.2 mg Q12H PRN PO Moderate constipation; Start at 17:15 Bisacodyl (Dulcolax Supp) 10 mg DAILY PRN RECTAL SEVERE CONSITIPATION; Start 01/10/17 at 17:15 Lactulose (Lactulose Liq) 30 ml DAILY PRN PO SEVERE CONSITIPATION; Start 01/10 at 17:15 Sodium Bicarbonate 0 ml @ As Directed STK-MED ONCE .ROUTE ; Start 01/10/17 at 17:23; Stop 01/10/17 at 17:24; Status DC Sodium Bicarbonate (Sodium Bicarbonate 8.4% Inj) 50 meq STK-MED ONCE .ROUTE ; Start 01/10/17 at 17:23; Stop 01/10/17 at 17:24; Status DC Sodium Chloride 1,000 ml @ 0 mls/hr Q0M PRN OTHER For Prime & Rinse Back Last administered on 01/10/17 22:05; Start 01/10/17 at 17:47 Heparin Sodium (Porcine) (Heparin Inj) 8,000 units UNSCH PRN IV FLUSH WITH DIALYSIS; Start 01/10/17 at 18:00 Sodium Chloride 1,000 ml @ 200 mls/hr Q5H PRN IV WITH DIALYSIS; Start at 17:47 Sodium Chloride 1,000 ml @ 0 mls/hr Q0M PRN OTHER WITH DIALYSIS; Start at 17:47 Mannitol (Mannitol Inj) 12.5 gm UNSCH PRN IV WITH DIALYSIS; Start 01/10/17 at 18:00 Albumin Human 100 ml @ 60 mls/hr UNSCH PRN IV WITH DIALYSIS; Start 01/10/17 at 18:00 Sodium Chloride (NS Flush) 5 ml UNSCH PRN IV FLUSH WITH DIALYSIS; Start at 18:00 Heparin Sodium (Porcine) (Heparin Inj) UNSCH PRN .XX WITH DIALYSIS; Start at 18:00 Gentamicin Sulfate (Gentamicin (Dialysis) Inj) 20 mg UNSCH PRN OTHER WITH DIALYSIS Last administered on 01/10/17 22:03; Start 01/10/17 at 18:00 Ondansetron HCl (Zofran Inj) 4 mg UNSCH PRN IV PUSH WITH DIALYSIS Last administered on 01/18/17 08:51; Start 01/10/17 at 18:00 Acetaminophen (Tylenol) 650 mg UNSCH PRN PO for headach, pain, temp > 101F; Start 01/10/17 at 18:00 Diphenhydramine HCl (Benadryl) 25 mg UNSCH PRN PO for hives/itching/anaphylaxis ; Start 01/10/17 at 18:00 Nitroglycerin (Nitrostat Sl) 0.4 mg UNSCH PRN SL CHEST PAIN; Start 01/10/17 at 18:00 Clonidine (Catapres) 0.1 mg UNSCH PRN PO for BP > 180/100 X 2 readings Last administered on 01/15/17 02:07; Start 01/10/17 at 18:00 Gelatin (Gelfoam 12 Mm/7 Mm Top) 1 foam UNSCH PRN TOP SEE LABEL COMMENTS; Start 01/10/17 at 18:00 Dextrose (D50w (Vial) Inj) 50 ml UNSCH PRN IV PUSH HYPOGLYCEMIA-SEE COMMENTS Last administered on 01/10/17 18:05; Start 01/10/17 at 22:30 Glucagon (Glucagon Inj) 1 mg UNSCH PRN OTHER HYPOGLYCEMIA-SEE COMMENTS; Start 01/10/17 at 22:30 Dexmedetomidine HCl 200 mcg/ Sodium Chloride 52 ml @ 5.46 mls/hr TITRATE PRN IV SEDATION Last administered on 01/12/17 14:53; Start 01/11/17 at 00:00 Metoprolol Tartrate (Lopressor) 25 mg Q12HR PO Last administered on 01/15/17 08:48; Start 01/11/17 at 21:00; Stop 01/15/17 at 11:09; Status DC Metoprolol Tartrate (Lopressor Inj) 5 mg Q1HR PRN IV PUSH RAPID HEART RATE Last administered on 01/14/17 21:16; Start 01/11/17 at 11:15; Stop 01/15/17 at 11:09; Status DC Diltiazem HCl 125 mg/Sodium Chloride 125 ml @ 5 mls/hr TITRATE PRN IV Tachycardia Last administered on 01/15/17 10:45; Start 01/11/17 at 17:30; Stop 01/15/17 at 11:11; Status DC Sodium Chloride 1,000 ml @ 84 mls/hr [id number] IV Last administered on 01:04; Start 01/12/17 at 13:00; Stop 01/13/17 at 12:51; Status DC Haloperidol Lactate (Haldol Inj) 5 mg Q4H PRN IV agitation Last administered on 01/18/17 08:50; Start 01/12/17 at 17:00 Diltiazem HCl (Cardizem) 60 mg Q6HR PO Last administered on 01/15/17 07:03; Start 01/13/17 at 06:00; Stop 01/15/17 at 11:09; Status DC Sodium Chloride 38.5 meq/Sterile Water 1,009.625 ml @ 84 mls/hr Q12H2M IV Last administered on 01/19/17 00:32; Start 01/13/17 at 15:00 Metoclopramide HCl (Reglan Inj) 5 mg Q8H PRN IV PUSH NAUSEA OR VOMITING Last administered on 01/14/17 22:57; Start 01/14/17 at 11:15; Stop 01/15/17 at 08 :56; Status DC Potassium Chloride 100 ml @ 50 mls/hr Q2H IV Last administered on 01/14/17 15:19; Start 01/14/17 at 12:00; Stop 01/14/17 at 15:59; Status DC Hydralazine HCl (Apresoline Inj) 20 mg ONCE ONCE IV PUSH Last administered on 01/14/17 22:58; Start 01/14/17 at 23:00; Stop 01/14/17 at 23:01; Status DC Metoclopramide HCl (Reglan Inj) 5 mg Q8H IV PUSH Last administered on 00:32; Start 01/15/17 at 10:00 Hydralazine HCl (Apresoline Inj) 10 mg Q4H PRN IV PUSH SYS BP GREATER THAN 160 MMHG; Start 01/15/17 at 10:00 Potassium Chloride 100 ml @ 100 mls/hr Q1H IV ; Start 01/15/17 at 10:00; Stop 01/15/17 at 10:00; Status DC Potassium Chloride 100 ml @ 50 mls/hr Q2H IV Last administered on 01/16/17 06:11; Start 01/15/17 at 10:00; Status Future Hold Diltiazem HCl 125 mg/Sodium Chloride 125 ml @ 15 mls/hr TITRATE PRN IV Tachycardia Last administered on 01/19/17 00:59; Start 01/15/17 at 17:30; Stop 01/19/17 at 08:01; Status DC Metoprolol Tartrate (Lopressor Inj) 5 mg Q4H IV PUSH Last administered on 01/16 08:48; Start 01/15/17 at 12:00; Stop 01/16/17 at 09:17; Status DC Heparin Sodium (Porcine) (Heparin Inj) 4,000 units NOW STAT IV PUSH ; Start at 11:11; Stop 01/15/17 at 11:12; Status Cancel Heparin Sodium (Porcine) (Heparin Inj) 5,000 units UNSCH PRN IV PUSH APTT LESS THAN 25; Start 01/15/17 at 17:15 Heparin Sodium (Porcine) (Heparin Inj) 2,500 units UNSCH PRN IV PUSH APTT 25 TO 39 Last administered on 01/16/17 06:17; Start 01/15/17 at 17:15 Heparin Sodium/ Dextrose 250 ml @ 10 mls/hr TITRATE PRN IV Coagulation management; Start 01/15/17 at 11:15; Status Cancel Heparin Sodium (Porcine) (Heparin Inj) 4,000 units NOW STAT IV PUSH Last administered on 01/15/17 15:45; Start 01/15/17 at 15:45; Stop 01/15/17 at 15 :51; Status DC Heparin Sodium/ Dextrose 250 ml @ 10 mls/hr TITRATE PRN IV Coagulation management Last administered on 01/18/17 15:20; Start 01/15/17 at 16:00 Clonidine (Catapres-Tts 0.3 Mg Patch.7d) 1 patch Q7D T-DERMAL Last administered on 01/16/17 14:14; Start 01/16/17 at 10:00 Metoprolol Tartrate (Lopressor Inj) 5 mg Q3H IV PUSH Last administered on 01/19 02:31; Start 01/16/17 at 11:00; Stop 01/19/17 at 08:01; Status DC Miscellaneous Information 1 Q7D T-DERMAL Last administered on 01/16/17 10:00 ; Start 01/16/17 at 10:00 Guaifenesin (Mucinex Er) 600 mg BID PO Last administered on 01/18/17 08:51; Start 01/16/17 at 21:00 Magnesium Sulfate/ Dextrose 100 ml @ 100 mls/hr ONCE ONCE IV Last administered on 01/16/17 14:14; Start 01/16/17 at 12:00; Stop 01/16/17 at 12 :59; Status DC Magnesium Sulfate/ Dextrose 100 ml @ 100 mls/hr Q1H IV Last administered on 11:45; Start 01/17/17 at 10:45; Stop 01/17/17 at 12:44; Status DC Calcium Gluconate 1 gm/Sodium Chloride 110 ml @ 110 mls/hr ONCE ONCE IV Last administered on 01/17/17 12:00; Start 01/17/17 at 12:00; Stop 01/17/17 at 12 :59; Status DC Calcium Carbonate (Oscal) 500 mg TID PO Last administered on 01/19/17 08:15; Start 01/17/17 at 13:00 Potassium Phosphate (K-Phos) 500 mg Q12HR PO Last administered on 01/19/17 08 :15; Start 01/17/17 at 14:00 Quetiapine Fumarate (SEROquel) 25 mg BID PO Last administered on 01/18/17 08: 51; Start 01/17/17 at 21:00 Sodium Chloride 500 ml @ 500 mls/hr BOLUS ONCE IV Last administered on 09:00; Start 01/18/17 at 09:00; Stop 01/18/17 at 09:59; Status DC Magnesium Sulfate/ Dextrose 100 ml @ 100 mls/hr ONCE ONCE IV Last administered on 01/18/17 12:48; Start 01/18/17 at 12:30; Stop 01/18/17 at 13 :29; Status DC Calcium Gluconate 1 gm/Dextrose 110 ml @ 110 mls/hr ONCE ONCE IV Last administered on 01/18/17 12:30; Start 01/18/17 at 12:30; Stop 01/18/17 at 13 :29; Status DC Potassium Chloride (KCl) 20 meq ONCE ONCE PO Last administered on 01/18/17 14:00; Start 01/18/17 at 14:00; Stop 01/18/17 at 14:01; Status DC Metoprolol Tartrate (Lopressor) 50 mg Q8HR PO ; Start 01/19/17 at 14:00 Diltiazem HCl (Cardizem) 90 mg TID PO ; Start 01/19/17 at 09:00 Warfarin Sodium (Coumadin) 5 mg DAILY@1600 PO ; Start 01/19/17 at 16:00 A/P Problem List: (1) Acute on chronic kidney failure ICD Code: N17.9 - Acute kidney failure, unspecified; N18.9 - Chronic kidney disease, unspecified (2) Combined metabolic and respiratory acidosis (3) Acute metabolic encephalopathy ICD Code: G93.41 - Metabolic encephalopathy (4) NSTEMI (non-ST elevated myocardial infarction) ICD Code: I21.4 - Non-ST elevation (NSTEMI) myocardial infarction (5) Hyperkalemia ICD Code: E87.5 - Hyperkalemia Status: Acute (6) Metabolic acidemia ICD Code: E87.2 - Acidosis (7) History of CVA (cerebrovascular accident) ICD Code: Z86.73 - Personal history of transient ischemic attack (TIA), and cerebral infarction without residual deficits Status: Chronic (8) Diabetes ICD Code: E11.9 - Type 2 diabetes mellitus without complications Status: Acute (9) HTN (hypertension) ICD Code: I10 - Essential (primary) hypertension Status: Chronic Assessment and Plan 56-year-old male admitted with acute metabolic encephalopathy, acute on chronic renal failure. Patient is seen in the ICU. Acute metabolic encephalopathy Agitated Delirium History of previous CVA with left hemiparesis - Psychiatrist evaluated the patient and stated that patient is still delirious and does not have the capacity to make medical decisions. 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 I will have to reconsult psychiatrist to determine again if patient has the capacity to make any medical decision. Since patient is refusing care. Probable COPD Severe combined metabolic and respiratory acidosis - resolved. Past Tobacco abuse - Nasal cannula oxygen, protecting airway - DuoNeb every 6 hours and when necessary MUCINEX IF TOLERATED DIET Atrial flutter with rapid ventricular response - Elevated troponin History of coronary artery disease HTN -Since patient is able to take oral intake weatherization technician transition patient to oral Cardizem and metoprolol today. Patient was started on warfarin. Patient is noncompliant and refuses to take medication. If he refused to take medication is noncompliant do not recommend warfarin. -As per patient elevated troponin he is asymptomatic. Echo showed normal function and a recent nonischemic nuclear stress stress test. Per weatherization technician this is most likely secondary to his renal failure, anemia and metabolic derangements. Acute on chronic kidney failure/ABNER Severe metabolic acidosis - resolved. - Status post emergency HD for hyperkalemia acute renal failure and severe acidosis on 01/10/17 - Monitor renal function closely and it is slowly improving Cr 1.92 today. [place] catheter. Renal US normal. - s/p Aggressive resuscitation with 4.5L crystalloids and bicarbonate infusion 150 ml per hour. Now bicarb off - Dialysis on hold. -Creatinine has been stable in plateau. Hypocalcemia/hypo-magnesium/hypokalemia -Continue to replenish as needed. Nausea/vomiting, resolved -zofran prn -on scheduled reglan -KUB negative. Type 2 diabetes Hyperglycemia Dyslipidemia - Sliding-scale insulin PROPH: - Bilateral lower extremity SCDs. Heparin IV DCd, protonix 40 mg IV q12 Discharge Planning Patient picks and chooses what care he wants. He is fully aware of his conversations and what he wants to do. Reconsult psychiatrist to determine if patient has the capacity to make medical decision. discussed with patient's nurse Chavo. Problem Qualifiers (1) Diabetes: (2) HTN (hypertension): Qualified Codes: I10 - Essential (primary) hypertension Paige Fitzgerald MD Jan 19, 2017 10:44
[2017-01-19] MEDS: HEPARIN-D5W 25,000 U/250 ML 250 ML IV PRN (10:57)
--- NOTE | 2017-01-19 12:58 | HHI.NPPN ---
Subjective History of Present Illness 56-year-old male with past medical history of chronic kidney disease, diabetes mellitus, history of cerebrovascular accident with hemiparesis, ischemic heart disease, hypertension, atrial fibrillation who came to the hospital with generalized weakness and dizziness. I was called to see the patient because of very high BUN and creatinine, metabolic acidosis and hyperkalemia. The patient has known history of chronic kidney disease and his baseline creatinine seems to me in the range of 1.6 to 2.2. Additional Remarks Patient is not cooperating not eating well Review of Systems General Constitutional: Fatigue Cardiovascular Cardiac: RODRÍGUEZ Objective Data Data Vital Signs Date Time Temp Pulse Resp B/P (MAP) Pulse Ox O2 Delivery O2 Flow Rate FiO2 01/19/17 12:00 104 01/19/17 12:00 98.3 104 24 143/87 (105) 95 01/19/17 10:04 98.8 109 20 127/75 (92) 97 01/19/17 10:00 108 01/19/17 08:00 109 01/19/17 04:00 98.4 94 22 138/82 (100) 98 01/19/17 00:59 110 137/70 01/19/17 00:00 98.7 107 23 126/79 (95) 98 01/18/17 22:00 01/18/17 20:00 01/18/17 20:00 99.0 107 15 107/71 (83) 98 01/18/17 18:00 130 01/18/17 17:59 96 107/63 01/18/17 16:00 99.8 103 18 107/72 (84) 98 01/18/17 16:00 130 01/18/17 14:00 130 -: 01/19/17 0701 01/19/17 0701 Physical Exam General Appearance: No Acute Distress, Comfortable, Anxious Throat Throat Exam: Oral Mucosa [place] & Moist Pulmonary Resp Exam: Breath Sounds Equal, No Distress, Rhonchi, Decreased Bases, Diminished Breath Sounds Cardiology CV Exam: Arrhythmia Gastrointestinal/Abdomen GI Exam: Soft, Non-Tender, Bowel Sounds Present Extremeties Extremities Exam: Trace Edema Neurologic Neuro Exam: Alert, Awake Assessment/Plan Assessment Summary: ABNER/Acute Renal Failure, CKD Stage III Electrolyte Assessment: Hyperkalemia, Hypocalcemia, Metabolic Acidosis Problem List: (1) History of CVA (cerebrovascular accident) ICD Codes: Z86.73 - Personal history of transient ischemic attack (TIA), and cerebral infarction without residual deficits Status: Chronic (2) HTN (hypertension) ICD Codes: I10 - Essential (primary) hypertension Status: Chronic (3) Diabetes ICD Codes: E11.9 - Type 2 diabetes mellitus without complications Status: Acute (4) Metabolic acidemia ICD Codes: E87.2 - Acidosis (5) Hyperkalemia ICD Codes: E87.5 - Hyperkalemia Status: Acute (6) Acute renal failure ICD Codes: N17.9 - Acute kidney failure, unspecified Status: Acute Plan Patient has chronic kidney disease and develop ABNER. Also had metabolic acidosis and Hyperkalemia. Patient has HD done Thursday and then started resolving ARF ATN resolving Cr higher not eating well refusing medications cr 2.2 again as not taking enough liquids not cooperating Magnesium replaced again, Ca replaced, KPO4 , Calcium low due to hypomagnesemia non compliant Problem Qualifiers (1) HTN (hypertension): Qualified Codes: I10 - Essential (primary) hypertension (2) Diabetes: (3) Acute renal failure: Qualified Codes: N17.9 - Acute kidney failure, unspecified Parth Ruiz MD Jan 19, 2017 12:58
--- NOTE | 2017-01-19 14:07 | HHI.PYPN ---
Subjective Remarks I have seen and examined this patient today for psychiatric reevaluation of decision-making capacity, but the patient in spite of multiple times refuses to answer my questions. Patient continues to be oppositional, internally preoccupied confused. More than a behavioral oppositional, patient seems to be acutely delirious. Patient is unable to verbalize the reason of his hospitalization, or even able to verbalize choice. Review of Systems ROS Limitations: Unresponsive, Uncooperative Mental Status Examination Appearance: Appropriate Consciousness: Alert Mental Status Exam Remarks mental status is limited due to the lack of cooperation Results Labs Test 01/19/17 07:01 01/19/17 12:20 White Blood Count 12.8 TH/MM3 Red Blood Count 3.70 MIL/MM3 Hemoglobin 10.6 GM/DL Hematocrit 32.6 % Mean Corpuscular Volume 88.1 FL Mean Corpuscular Hemoglobin 28.7 PG Mean Corpuscular Hemoglobin Concent 32.6 % Red Cell Distribution Width 14.5 % Platelet Count 109 TH/MM3 Mean Platelet Volume 10.3 FL Activated Partial Thromboplast Time 51.6 SEC 52.0 SEC Blood Urea Nitrogen 33 MG/DL Creatinine 2.25 MG/DL Random Glucose 175 MG/DL Calcium Level 7.5 MG/DL Sodium Level 136 MEQ/L Potassium Level 3.5 MEQ/L Chloride Level 102 MEQ/L Carbon Dioxide Level 24.1 MEQ/L Anion Gap 10 MEQ/L Estimat Glomerular Filtration Rate 37 ML/MIN Magnesium Level 1.6 MG/DL Date/Time Source Procedure Growth Status 01/14/17 11:52 Blood Peripheral Aerobic Blood Culture - Final NO GROWTH IN 5 DAYS Complete 01/14/17 11:52 Blood Peripheral Anaerobic Blood Culture - Final NO GROWTH IN 5 DAYS Complete Vitals/IOs Vital Signs Date Time Temp Pulse Resp B/P (MAP) Pulse Ox O2 Delivery O2 Flow Rate FiO2 01/19/17 12:00 104 01/19/17 12:00 98.3 24 143/87 (105) 95 01/17/17 19:46 21 01/15/17 19:39 Nasal Cannula 2.00 Intake and Output 01/19/17 01/19/17 01/20/17 08:00 16:00 00:00 Intake Total 240 ml Output Total 1100 ml Balance -860 ml Assessment & Plan Problem List: (1) Delirium due to another medical condition ICD Codes: F05 - Delirium due to known physiological condition Assessment & Plan: Due to the lack of cooperation, level of confusion, inability to express a rational choice, and inability to verbalize reason of hospitalization and nature of her medical illnesses, the patient definitely doesn't have decision-making capacity to refuse medications or to leave AMA. In this case addiction social worker intervention to contact health care by proxy is appropriate. Is unclear at this point if mutism is selective in nature, psychotic or secondary to cognitive impairment due to delirium. Extensive support psycho education provided. Assessment & Plan Estimated LOS: days Justification for Cont. Inpt. She does not meet criteria for psychiatric admission at this moment. Maurice Cardenas MD Jan 19, 2017 14:07
--- NOTE | 2017-01-19 14:57 | PD.CONS ---
Consult Service Palliative Care . Consult Requested By Qi Barrera NP/ EDMAR . Primary Care Physician Indiana Frey MD . Reason for Consultation a. To assist with evaluation and management of symptoms including: pain. b. To assist medical decision maker(s) with: better understanding of current medical conditions; weighing benefits/burdens of medical treatment options; making medical treatment decisions. . HPI History of Present Illness Mr. Andrews is a 56 year old male with past medical history of chronic kidney disease (baseline creatinine 1.8 - 2), type 2 diabetes, history of CVA with residual left hemiparesis, coronary artery disease, hypertension, atrial fibrillation/fluter and peptic ulcer disease. Patient presented to [facility] Emergency department on 01/10/17 with generalized weakness and dizziness that started 1 week prior. He was tachycardic in atrial flutter and EKG shows significant left anterolateral ischemic changes. ABG showed pH of 7.12 PCO2 of 30 PO2 of 107 base excess of - 18. I have requested 2 A of bicarbonate stat, and increased bicarbonate infusion [address] Jiang was consulted and Vascath was placed. Patient required emergent dialysis for severe acidemia and hyperkalemia, it appears he only required dialysis x 1 treatment. Cardiology, Dr. Vasquez was consulted for atrial flutter and elevated troponin likely due to renal failure. Echocardiogram revealed EF 50-55%, trees mitral valve regurgitation, mild tricuspid valve regurgitation. Cardiology still following with recent medication changes (change to Cardizem, metoprolol oral and start warfarin) for what appears more atrial fibrillation. Renal function is worsening, creatinine. Patient has been refusing care. Psychiatry, Dr. Walden was consulted for delirium. He was deemed patient incapacitated to make his own decisions. Palliative care was consulted to assist in finding family/ health care proxy decision maker with further clarification of treatment goals. Case management (CM) notes indicate patient has a brother, Devon Andrews ) and old CM notes in 08/2016 emergency contact was listed as Sofia Chavira [phone] (no relationship listed). . Function/Cognitive Trajectory Worsening health over many years. [facility] dependent. Often refuses meds and has a history of never really caring for himself properly. Family suspects underlying psychiatric disease that has never been diagnosed since childhood. . Review of Systems Constitutional: COMPLAINS OF: Fatigue, Change in appetite (decreased), Generalized weakness Respiratory: COMPLAINS OF: Shortness of breath Neurologic: COMPLAINS OF: Localized weakness (left hemiparesis from old stroke. ), Poor Balance Psychiatric: COMPLAINS OF: Confusion (refusing meds), Depression Other ROS: pt does not answer most questions, unable to provide ROS. ROS per EMR review and family. . Past Family Social History Coded Allergies: No Known Allergies (Unverified , 01/07/17) Past Medical History Chronic kidney disease Type 2 diabetes Hypertension Dyslipidemia Previous stroke, with residual L weakness Atrial fibrillation/flutter CAD History of PUD . Past Surgical History Some form of throat surgery in 2016 at [facility] status post fall . Reported Medications Reported Meds & Active Scripts Active Tylenol (Acetaminophen) 325 Mg Tab 650 Mg PO Q6H PRN Lisinopril 5 Mg Tab 5 Mg PO DAILY Atorvastatin (Atorvastatin Calcium) 80 Mg Tab 80 Mg PO HS Gabapentin 300 Mg Cap 300 Mg PO BID Glimepiride 4 Mg Tab 4 Mg PO DAILY Coreg (Carvedilol) 12.5 Mg Tab 12.5 Mg PO Q12HR 30 Days Reported Proair Hfa 8.5 GM Inh (Albuterol Sulfate) 90 Mcg/Act Aer 2 Puff INH Q4-6H PRN 108 mcg/actuation Nitroglycerin SL (Nitroglycerin) 0.4 Mg Subl 0.4 Mg SL DIRECTED PRN ONE TABLET UNDER THE TONGUE NEEDED FOR CHEST PAIN, MAY REPEAT EVERY FIVE MINUTES FOR A TOTAL OF 3 DOSES OR CALL 911 IF NO RELIEF Loperamide (Loperamide HCl) 2 Mg Cap 2 Mg PO DIRECTED PRN One capsule after each loose stool. Not to exceed 8 capsules per day. Januvia (Sitagliptin Phosphate) 25 Mg Tab 50 Mg PO DAILY . Current Medications Medications (Trade) Dose Ordered Sig/Mansi Route Start Time Stop Time Status Last Admin (Tylenol) 650 mg Q6H PRN PO 01/10/17 17:00 (Proair Hfa Inh) 2 puff Q6H PRN INH 01/10/17 17:00 (Lipitor) 80 mg HS PO 01/10/17 21:00 01/16/17 21:53 (Nitrostat Sl) 0.4 mg Q3H PRN SL 01/10/17 17:00 (Ecotrin Ec) 81 mg DAILY PO 01/10/17 17:00 01/18/17 08:52 (NovoLOG SUPPLEMENTAL SCALE) 1 Q4H SQ 01/10/17 17:00 01/17/17 08:59 (NS Flush) 2 ml BID IV FLUSH 01/10/17 21:00 01/19/17 08:16 Miscellaneous Information 1 Q361D XX 01/10/17 17:15 (Chlorhexidine 2% Cloth) Taper DAILY@04 TOP 01/11/17 04:00 01/07/18 03:59 01/17/17 01:29 (Chlorhexidine 2% Cloth) 3 pack UNSCH PRN TOP 01/10/17 17:15 (Afia-Colace) 1 tab BID PO 01/10/17 21:00 01/18/17 08:51 (Milk Of Magnesia Liq) 30 ml Q12H PRN PO 01/10/17 17:15 (Senokot) 17.2 mg Q12H PRN PO 01/10/17 17:15 (Dulcolax Supp) 10 mg DAILY PRN RECTAL 01/10/17 17:15 (Lactulose Liq) 30 ml DAILY PRN PO 01/10/17 17:15 Sodium Chloride 1,000 ml @ 0 mls/hr Q0M PRN OTHER 01/10/17 17:47 01/10/17 22:05 (Heparin Inj) 8,000 units UNSCH PRN IV FLUSH 01/10/17 18:00 Sodium Chloride 1,000 ml @ 200 mls/hr Q5H PRN IV 01/10/17 17:47 Sodium Chloride 1,000 ml @ 0 mls/hr Q0M PRN OTHER 01/10/17 17:47 (Mannitol Inj) 12.5 gm UNSCH PRN IV 01/10/17 18:00 Albumin Human 100 ml @ 60 mls/hr UNSCH PRN IV 01/10/17 18:00 (NS Flush) 5 ml UNSCH PRN IV FLUSH 01/10/17 18:00 (Heparin Inj) UNSCH PRN .XX 01/10/17 18:00 (Gentamicin (Dialysis) Inj) 20 mg UNSCH PRN OTHER 01/10/17 18:00 01/10/17 22:03 (Zofran Inj) 4 mg UNSCH PRN IV PUSH 01/10/17 18:00 01/18/17 08:51 (Tylenol) 650 mg UNSCH PRN PO 01/10/17 18:00 (Benadryl) 25 mg UNSCH PRN PO 01/10/17 18:00 (Nitrostat Sl) 0.4 mg UNSCH PRN SL 01/10/17 18:00 (Catapres) 0.1 mg UNSCH PRN PO 01/10/17 18:00 01/15/17 02:07 (Gelfoam 12 Mm/7 Mm Top) 1 foam UNSCH PRN TOP 01/10/17 18:00 (D50w (Vial) Inj) 50 ml UNSCH PRN IV PUSH 01/10/17 22:30 01/10/17 18:05 (Glucagon Inj) 1 mg UNSCH PRN OTHER 01/10/17 22:30 Dexmedetomidine HCl 200 mcg/ Sodium Chloride 52 ml @ 5.46 mls/hr TITRATE PRN IV 01/11/17 00:00 01/12/17 14:53 (Haldol Inj) 5 mg Q4H PRN IV 01/12/17 17:00 01/18/17 08:50 Sodium Chloride 38.5 meq/Sterile Water 1,009.625 ml @ 84 mls/hr Q12H2M IV 01/13/17 15:00 01/19/17 00:32 (Reglan Inj) 5 mg Q8H IV PUSH 01/15/17 10:00 01/19/17 00:32 (Apresoline Inj) 10 mg Q4H PRN IV PUSH 01/15/17 10:00 Potassium Chloride 100 ml @ 50 mls/hr Q2H IV 01/15/17 10:00 Future Hold 01/16/17 06:11 (Heparin Inj) 5,000 units UNSCH PRN IV PUSH 01/15/17 17:15 (Heparin Inj) 2,500 units UNSCH PRN IV PUSH 01/15/17 17:15 01/16/17 06:17 Heparin Sodium/ Dextrose 250 ml @ 10 mls/hr TITRATE PRN IV 01/15/17 16:00 01/19/17 10:57 (Catapres-Tts 0.3 Mg Patch.7d) 1 patch Q7D T-DERMAL 01/16/17 10:00 01/16/17 14:14 Miscellaneous Information 1 Q7D T-DERMAL 01/16/17 10:00 01/16/17 10:00 (Mucinex Er) 600 mg BID PO 01/16/17 21:00 01/18/17 08:51 (Oscal) 500 mg TID PO 01/17/17 13:00 01/19/17 08:15 (K-Phos) 500 mg Q12HR PO 01/17/17 14:00 01/19/17 08:15 (SEROquel) 25 mg BID PO 01/17/17 21:00 01/18/17 08:51 (Lopressor) 50 mg Q8HR PO 01/19/17 14:00 (Cardizem) 90 mg TID PO 01/19/17 09:00 (Coumadin) 5 mg DAILY@1600 PO 01/19/17 16:00 Family History Mother alive 81 with schizophrenia. Father history of diabetes, hypertension, renal disease. Siblings alive and well. . Substance Use Per EMR review: Tobacco: Quit smoking 2 years ago Alcohol: Quit drinking 5 years ago Prescription med abuse: none known. Illicits:Used to smoke marijuana quit for the past 5 years . Psychosocial History Single. No children. Father . Mother in a long-term with underlying schizophrenia poor health. One brother, Isabela and 2 sisters, Lizeth and Lin. Family reports patient was unable to read or write. He was "slow "as a child and got pushed through school. Family suspects underlying mental health illness that was never diagnosed. Had a difficult life was abandoned by his mother as a child, raised by his brother Isabela. 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 Disabled. Spiritual/Cultural Factors Restorationist caroline. . Living Will: Never completed Health Care Surrogate: Never completed Durable Power of Lumber Tripper: Never completed Health Care Surrogate(s): Patient is incapacitated to make his own health care decisions, uncertain if he will regain capacity. Single. No children. Mother in a long-term with underlying schizophrenia, not capacitated herself. Father . 2 sisters and one brother. 2 sisters, Lizeth and Alejandrina do not wish to serve as healthcare proxy decision makers. Therefore, healthcare proxy decision-making will fall to the patient's brother,Isabela Andrews, he is willing to serve in this role. . Today's verbally stated goals: Patient has been deemed incapacitated to make his own health care decisions per psychiatry. Family/friends goals: BrotherIsabela is willing to serve as HCP. Elects NO CODE. Otherwise desires continued aggressive care at this time. . Ethical and Legal Issues Patient deemed incapacitated per psychiatry to make his own health care decisions, uncertain if he will regain capacity. Single. No children. Mother in a long-term with underlying schizophrenia, not capacitated herself. Father . 2 sisters and one brother. 2 sisters, Lizeth and Alejandrina do not wish to serve as healthcare proxy decision makers. Therefore, healthcare proxy decision-making will fall to the patient's brother,Isabela Andrews, he is willing to serve in this role. . Physical Exam Vital Signs Date Time Temp Pulse Resp B/P (MAP) Pulse Ox O2 Delivery O2 Flow Rate FiO2 01/19/17 12:00 104 01/19/17 12:00 98.3 104 24 143/87 (105) 95 01/19/17 10:04 98.8 109 20 127/75 (92) 97 01/19/17 10:00 108 01/19/17 08:00 109 01/19/17 04:00 98.4 94 22 138/82 (100) 98 01/19/17 00:59 110 137/70 01/19/17 00:00 98.7 107 23 126/79 (95) 98 01/18/17 22:00 01/18/17 20:00 01/18/17 20:00 99.0 107 15 107/71 (83) 98 01/18/17 18:00 130 01/18/17 17:59 96 107/63 01/18/17 16:00 99.8 103 18 107/72 (84) 98 01/18/17 16:00 130 Exam CONSTITUTIONAL/GENERAL: This is an adequately nourished patient, in no apparent distress. TUBES/LINES/DRAINS: PIV, [place]. SKIN: No jaundice, rashes, or lesions. Ecchymoses on upper extremities. No wounds seen anteriorly. Skin temperature appropriate. Not diaphoretic. HEAD: Atraumatic. Normocephalic. EYES: Pupils equal and round and reactive. Extraocular motions intact. No scleral icterus. No injection or drainage. Fundi not examined. ENT: Hearing grossly normal. NECK: Trachea midline. CARDIOVASCULAR: Irregular, atrial fibrillation on telemetry. RESPIRATORY/CHEST: Symmetric, unlabored respirations. Clear to auscultation. Breath sounds equal bilaterally. No wheezes, rales, or rhonchi. GASTROINTESTINAL: Abdomen soft, non-tender, nondistended. No guarding. Bowel sounds present. GENITOURINARY: Without palpable bladder distension. Catheter in place. 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 Extremities without clubbing, cyanosis, or edema. No mottling or clubbing. LYMPHATICS: No palpable cervical or supraclavicular adenopathy. NEUROLOGICAL: Awake and alert. Does not answer most questions. PSYCHIATRIC: Difficult to assess, does not answer most questions. . Diagnostic Tests Laboratory Laboratory Tests Test 01/16/17 23:57 01/17/17 05:10 01/17/17 08:36 01/18/17 10:06 Activated Partial Thromboplast Time 46.9 SEC (24.3-30.1) 59.5 SEC (24.3-30.1) 61.9 SEC (24.3-30.1) White Blood Count 20.5 TH/MM3 (4.0-11.0) 14.8 TH/MM3 (4.0-11.0) Red Blood Count 3.79 MIL/MM3 (4.50-5.90) 3.47 MIL/MM3 (4.50-5.90) Hemoglobin 11.1 GM/DL (13.0-17.0) 10.1 GM/DL (13.0-17.0) Hematocrit 33.6 % (39.0-51.0) 30.7 % (39.0-51.0) Mean Corpuscular Volume 88.6 FL (80.0-100.0) 88.6 FL (80.0-100.0) Mean Corpuscular Hemoglobin 29.2 PG (27.0-34.0) 29.2 PG (27.0-34.0) Mean Corpuscular Hemoglobin Concent 32.9 % (32.0-36.0) 33.0 % (32.0-36.0) Red Cell Distribution Width 14.3 % (11.6-17.2) 14.4 % (11.6-17.2) Platelet Count 116 TH/MM3 (150-450) 96 TH/MM3 (150-450) Mean Platelet Volume 9.6 FL (7.0-11.0) 9.5 FL (7.0-11.0) Neutrophils (%) (Auto) 92.9 % (16.0-70.0) Lymphocytes (%) (Auto) 2.6 % (9.0-44.0) Monocytes (%) (Auto) 4.4 % (0.0-8.0) Eosinophils (%) (Auto) 0.0 % (0.0-4.0) Basophils (%) (Auto) 0.1 % (0.0-2.0) Neutrophils # (Auto) 19.0 TH/MM3 (1.8-7.7) Lymphocytes # (Auto) 0.5 TH/MM3 (1.0-4.8) Monocytes # (Auto) 0.9 TH/MM3 (0-0.9) Eosinophils # (Auto) 0.0 TH/MM3 (0-0.4) Basophils # (Auto) 0.0 TH/MM3 (0-0.2) CBC Comment DIFF FINAL Differential Comment Blood Urea Nitrogen 23 MG/DL (7-18) 28 MG/DL (7-18) Creatinine 2.11 MG/DL (0.60-1.30) 2.18 MG/DL (0.60-1.30) Random Glucose 190 MG/DL (74-106) 157 MG/DL (74-106) Total Protein 7.2 GM/DL (6.4-8.2) 6.2 GM/DL (6.4-8.2) Albumin 2.8 GM/DL (3.4-5.0) Calcium Level 6.6 MG/DL (8.5-10.1) 6.4 MG/DL (8.5-10.1) Phosphorus Level 1.2 MG/DL (2.5-4.9) 1.5 MG/DL (2.5-4.9) Magnesium Level 0.9 MG/DL (1.5-2.5) 1.4 MG/DL (1.5-2.5) Alkaline Phosphatase 57 U/L (45-117) Aspartate Amino Transf (AST/SGOT) 20 U/L (15-37) Alanine Aminotransferase (ALT/SGPT) 19 U/L (12-78) Total Bilirubin 1.9 MG/DL (0.2-1.0) Sodium Level 137 MEQ/L (136-145) 139 MEQ/L (136-145) Potassium Level 4.1 MEQ/L (3.5-5.1) 3.4 MEQ/L (3.5-5.1) Chloride Level 104 MEQ/L (98-107) 103 MEQ/L (98-107) Carbon Dioxide Level 26.1 MEQ/L (21.0-32.0) 25.3 MEQ/L (21.0-32.0) Anion Gap 7 MEQ/L (5-15) 11 MEQ/L (5-15) Estimat Glomerular Filtration Rate 40 ML/MIN (>89) 38 ML/MIN (>89) Hemoglobin A1c 7.0 % (4.3-6.0) Protein Corrected Calcium 6.6 MG/DL (8.5-10.1) 6.8 MG/DL (8.5-10.1) Free Thyroxine 1.77 NG/DL (0.76-1.46) Thyroid Stimulating Hormone 3rd Gen 1.190 uIU/ML (0.358-3.740) Test 01/19/17 07:01 01/19/17 12:20 White Blood Count 12.8 TH/MM3 (4.0-11.0) Red Blood Count 3.70 MIL/MM3 (4.50-5.90) Hemoglobin 10.6 GM/DL (13.0-17.0) Hematocrit 32.6 % (39.0-51.0) Mean Corpuscular Volume 88.1 FL (80.0-100.0) Mean Corpuscular Hemoglobin 28.7 PG (27.0-34.0) Mean Corpuscular Hemoglobin Concent 32.6 % (32.0-36.0) Red Cell Distribution Width 14.5 % (11.6-17.2) Platelet Count 109 TH/MM3 (150-450) Mean Platelet Volume 10.3 FL (7.0-11.0) Activated Partial Thromboplast Time 51.6 SEC (24.3-30.1) 52.0 SEC (24.3-30.1) Blood Urea Nitrogen 33 MG/DL (7-18) Creatinine 2.25 MG/DL (0.60-1.30) Random Glucose 175 MG/DL (74-106) Calcium Level 7.5 MG/DL (8.5-10.1) Sodium Level 136 MEQ/L (136-145) Potassium Level 3.5 MEQ/L (3.5-5.1) Chloride Level 102 MEQ/L (98-107) Carbon Dioxide Level 24.1 MEQ/L (21.0-32.0) Anion Gap 10 MEQ/L (5-15) Estimat Glomerular Filtration Rate 37 ML/MIN (>89) Magnesium Level 1.6 MG/DL (1.5-2.5) Result Diagram: 01/19/17 0701 01/19/17 0701 Microbiology Microbiology Date/Time Source Procedure Growth Status 01/14/17 11:52 Blood Peripheral Aerobic Blood Culture - Final NO GROWTH IN 5 DAYS Complete 01/14/17 11:52 Blood Peripheral Anaerobic Blood Culture - Final NO GROWTH IN 5 DAYS Complete . Imaging Last Impressions Abdomen X-Ray 01/18/17 0000 Signed Impressions: Service Date/Time: Wednesday, January 18, 2017 08:02 - CONCLUSION: No acute disease. Edward Mata MD Chest X-Ray 01/14/17 1114 Signed Impressions: Service Date/Time: Saturday, January 14, 2017 11:54 - CONCLUSION: 1. Compensated cardiomegaly. 2. Minimal bibasilar airspace disease, likely atelectasis. 3. No significant interval change. Johnathon Ramon MD Head CT 01/10/17 1257 Signed Impressions: Service Date/Time: Tuesday, January 10, 2017 13:32 - CONCLUSION: No acute disease. Jermaine Malone Jr., MD Renal Ultrasound 01/10/17 0000 Signed Impressions: Service Date/Time: Tuesday, January 10, 2017 17:01 - CONCLUSION: Normal examination. Jermaine Malone Jr., MD . Patient/Family Conference Present at Family Conference: Met with patient at bedside. Spoke with 2 sister, Lizeth and Lin via phone. Spoke with brother, Isabela via phone x 2. . Family Conference Time (mins): 100 (divided between siblings via phone. ) Family Conference Location: Telephone Issues Discussed: * Palliative care role, purpose, approach * Additional medical, psychosocial, and spiritual history * Patients general health, functional status, and cognitive changes in the months leading up to the current hospitalization * Patient/family understanding of the current medical problems * Patient/family understanding of prognosis * Patients goals of care as best understood from advance directives and/or conversations and/or values * Current medical treatment options and benefits/burdens of those options * Likely scenarios comparing ongoing aggressive care with a transition to comfort measures only * Questions answered to the best of my ability * Palliative care contact information provided Sisters, Lizeth and Lin opt out of decision making. Mother is in SNF not capacitated to make her own health care decisions. Father . No children. Single. BrotherIsabela is willing to serve as HCP [place]. He elects NO CODE. May be coming to the hospital on 01/20/17, will call palliative care when he arrives. Will attempt to complete [place] DNR order at that time. Otherwise goals remain aggressive at this time. He indicates that he would want treatment forced if medically indicated. . Assessment and Plan Disease Oriented Problem List: (1) Leukocytosis (2) Malnutrition (3) HTN (hypertension) (4) Atrial flutter (5) Acute metabolic encephalopathy (6) Acute on chronic kidney failure (7) Elevated troponin (8) Diabetes Symptom Scale: (1) Pain 0-10 Scale: Unable to quantify Comment: Patient not answering most questions. (2) Weakness 0-10 Scale: Unable to quantify Comment: Secondary to prior CVA, left hemiparesis Pertinent Non-Medical Issues Psychosocial: Single. No children. Disabled. Brother, Isabela Andrews is serving as healthcare proxy decision maker per [place] statutes. Spiritual: Restorationist caroline. Legal:Patient deemed incapacitated per psychiatry to make his own health care decisions, uncertain if he will regain capacity. Single. No children. Mother in a long-term with underlying schizophrenia, not capacitated herself. Father . 2 sisters and one brother. 2 sisters, Lizeth and Alejandrina do not wish to serve as healthcare proxy decision makers. Therefore, healthcare proxy decision-making will fall to the patient's brother,Isabela Andrews, he is willing to serve in this role. Ethical issues impacting care: no known concerns at this time. . Important Contacts * Isabela Andrews, brother/HCP: [phone] * Christy Colon, ex sister in law ([place] ex- - who pt trusts): * Alta Andrews, sister opted out of HCP decision-making and [phone] * Alejandrina sifuentes, sister, opted out of HCP decision [phone] * Kylee Kendall, mother, incapacitated, in SNF . Prognosis Mr. Andrews is a 56-year-old male with long history of noncompliance, refusing medication, questionable underlying psychiatric disease, admitted with acute on chronic renal failure, coronary artery disease, atrial fib/flutter refusing medications. Patient remains high risk for repeat hospitalization, further decline or even . Uncertain if patient has underlying psychiatric disease if this was treated would he be more readily open to taking medications. Will attempt to discuss with psychiatry. Family feels patient has had psychiatric issues since he was a child that were never diagnosed. . Code Status: No Code Plan * Decision Maker: Patient deemed incapacitated per psychiatry to make his own health care decisions, uncertain if he will regain capacity. Single. No children. Mother in a long-term with underlying schizophrenia, not capacitated herself. Father . 2 sisters and one brother. 2 sisters, Lizeth and Alejandrina do not wish to serve as healthcare proxy decision makers. Therefore, healthcare proxy decision-making will fall to the patient's brother, Isabela Andrews, he is willing to serve in this role. * NO CODE * Palliative care spoke with BrotherIsabela is willing to serve as HCP [place] Law. He elects NO CODE. May be coming to the hospital on 01/20/17, will call palliative care when he arrives. Will attempt to complete [place] DNR order at that time. Otherwise goals remain aggressive at this time. He indicates that he would want treatment forced if medically indicated. * SYMPTOMS: Pain: denies pain during my visit. Weakness: debility due to prior stroke. * Palliative care number provided. * Palliative care will continue to follow throughout hospital course to assist with symptom management and clarification of goals as needed. . Thank you for the opportunity to participate in the care of Mr. Andrews. Attestation To help prompt me to consider important information that might be impacting today's encounter and assessment, information from prior notes written by myself or my colleagues may have been "brought forward" into today's note. My signature on this note, however, is an attestation that I personally performed the exam, history, and/or decision-making noted today, and, unless otherwise indicated, the interactions with patient, family, and staff as well as the review of records all occurred today. I also attest that the listed assessment and stated plan reflect my best clinical judgment today based on the combination of historical information, prior notes, and today's exam/ interactions. When time spent is documented, it refers only to time spent today by the signer, or if indicated, combined time spent today by collaborating physician/nurse practitioner. Dariana Stephen Jan 19, 2017 14:57
[2017-01-19] MEDS: METOPROLOL TARTRATE 50 MG TAB PO SCH ×2 (15:44→20:04)
[2017-01-19] MEDS ORDERED: WARFARIN SOD 5 MG TAB PO SCH (16:00)
[2017-01-19] MEDS: ATORVASTATIN 80 MG TAB PO SCH (20:04)
[2017-01-20] VITALS (9 sets, daily range): BP systolic 116–154; BP diastolic 70–93; PULSE 99–134; RESP 22–29; TEMP 98–98.5; O2SAT 95–98
[2017-01-20] MEDS: INSULIN ASPART SUPPLEMENTAL SCALE SQ SCH ×6 (00:26→20:54)
[2017-01-20] MEDS: METOCLOPRAMIDE HCL 10 MG/2 ML VIAL IV PUSH SCH ×3 (00:27→17:26)
[2017-01-20] MEDS: CHLORHEXIDINE GLUCONATE 2 % 1 PACK (2 CLOTHS) TOP SCH (00:27)
[2017-01-20] MEDS: SODIUM CHLORIDE 23.4% INJ 38.5 MEQ in WATER STERILE FOR INJ 1,000 ML IV SCH ×2 (03:26→20:56)
[2017-01-20] MEDS: HALOPERIDOL LACTATE 5 MG/ML AMP IV PRN ×2 (05:09→10:02)
[2017-01-20] MEDS: METOPROLOL TARTRATE 50 MG TAB PO SCH ×4 (05:11→20:54)
[2017-01-20] MEDS: HEPARIN-D5W 25,000 U/250 ML 250 ML IV PRN (05:11)
[2017-01-20 07:02] LABS: MEAN CELL VOLUME 87.1 FL (80.0-100.0); MEAN CORPUSCULAR HEMOGLOBIN 29.2 PG (27.0-34.0); MEAN CORPUSCULAR HGB CONC 33.5 % (32.0-36.0); PLATELET COUNT 115 TH/MM3 (150-450); RED BLOOD COUNT 3.45 MIL/MM3 (4.50-5.90); RED CELL DISTRIBUTION WIDTH 14.7 % (11.6-17.2); REVIEW FLAG FINAL; WHITE BLOOD COUNT 14.2 TH/MM3 (4.0-11.0)
[2017-01-20 07:10] LABS: APTT (PATIENT) 57.8 SEC (24.3-30.1); INTERNATIONAL NORMALIZED RATIO 1.7 RATIO; PROTHROMBIN TIME - PATIENT 19.3 SEC (9.8-11.6)
[2017-01-20 07:31] LABS: BICARBONATE 25.6 MEQ/L (21.0-32.0); MAGNESIUM 1.4 MG/DL (1.5-2.5); POTASSIUM 3.3 MEQ/L (3.5-5.1)
[2017-01-20 07:46] LABS: CALCIUM-PROTEIN CORRECTED 7.6 MG/DL (8.5-10.1)
[2017-01-20] MEDS: SODIUM CHLORIDE 0.9% FLUSH 10 ML FLUSH IV FLUSH SCH ×2 (08:11→20:55)
[2017-01-20] MEDS: DILTIAZEM HCL 90 MG TAB PO SCH (08:11)
[2017-01-20] MEDS: ASPIRIN EC 81 MG TABEC PO SCH (08:12)
[2017-01-20] MEDS: POTASSIUM PHOSPHATE MONOBASIC 500 MG TAB PO SCH ×2 (08:12→20:54)
[2017-01-20] MEDS: CALCIUM CARBONATE 1.25 GM (CA 500 MG) TAB PO SCH ×3 (08:13→17:27)
[2017-01-20] MEDS: DOCUSATE SODIUM 50 MG/SENNA 8.6 MG TAB PO SCH ×2 (08:13→20:54)
[2017-01-20] MEDS: guaiFENesin E.R. 600 MG TAB PO SCH ×2 (08:13→20:54)
[2017-01-20] MEDS: QUEtiapine FUMARATE 25 MG TAB PO SCH ×2 (08:14→20:54)
--- NOTE | 2017-01-20 08:19 | PD.CARD.PN ---
Subjective Subjective Remarks Somnolent. Denies CP, palpitations, dizziness, dyspnea. Objective Medications Item Value Date Time Warfarin Sodium 5 mg 01/19/17 1600 (Coumadin) DAILY@1600/PO 01/19/17 1543 Metoprolol 50 mg 01/19/17 1400 Tartrate Q8HR/PO (Lopressor) Diltiazem HCl 90 mg 01/19/17 0900 (Cardizem) TID/PO 01/19/17 1842 Potassium 500 mg 01/17/17 1400 Phosphate Q12HR/PO (K-Phos) Clonidine 1 patch 01/16/17 1000 (Catapres-Tts Q7D/T-DERMAL 01/16/17 1414 0.3 Mg Patch.7d) Heparin Sodium/ 250 ml @ 10 mls/hr 01/15/17 1600 Dextrose TITRATE PRN/IV 01/20/17 0511 Hydralazine HCl 10 mg 01/15/17 1000 (Apresoline Inj) Q4H PRN/IV PUSH Atorvastatin 80 mg 01/10/17 2100 Calcium HS/PO (Lipitor) Clonidine 0.1 mg 01/10/17 1800 (Catapres) UNSCH PRN/PO 01/15/17 0207 Aspirin 81 mg 01/10/17 1700 (Ecotrin Ec) DAILY/PO Current Medications Medications (Trade) Dose Ordered Sig/Mansi Route Start Time Stop Time Status Last Admin (Tylenol) 650 mg Q6H PRN PO 01/10/17 17:00 (Proair Hfa Inh) 2 puff Q6H PRN INH 01/10/17 17:00 (Lipitor) 80 mg HS PO 01/10/17 21:00 01/16/17 21:53 (Nitrostat Sl) 0.4 mg Q3H PRN SL 01/10/17 17:00 (Ecotrin Ec) 81 mg DAILY PO 01/10/17 17:00 01/18/17 08:52 (NovoLOG SUPPLEMENTAL SCALE) 1 Q4H SQ 01/10/17 17:00 01/17/17 08:59 (NS Flush) 2 ml BID IV FLUSH 01/10/17 21:00 01/19/17 08:16 Miscellaneous Information 1 Q361D XX 01/10/17 17:15 (Chlorhexidine 2% Cloth) Taper DAILY@04 TOP 01/11/17 04:00 01/07/18 03:59 01/17/17 01:29 (Chlorhexidine 2% Cloth) 3 pack UNSCH PRN TOP 01/10/17 17:15 (Afia-Colace) 1 tab BID PO 01/10/17 21:00 01/18/17 08:51 (Milk Of Magnesia Liq) 30 ml Q12H PRN PO 01/10/17 17:15 (Senokot) 17.2 mg Q12H PRN PO 01/10/17 17:15 (Dulcolax Supp) 10 mg DAILY PRN RECTAL 01/10/17 17:15 (Lactulose Liq) 30 ml DAILY PRN PO 01/10/17 17:15 Sodium Chloride 1,000 ml @ 0 mls/hr Q0M PRN OTHER 01/10/17 17:47 01/10/17 22:05 (Heparin Inj) 8,000 units UNSCH PRN IV FLUSH 01/10/17 18:00 Sodium Chloride 1,000 ml @ 200 mls/hr Q5H PRN IV 01/10/17 17:47 Sodium Chloride 1,000 ml @ 0 mls/hr Q0M PRN OTHER 01/10/17 17:47 (Mannitol Inj) 12.5 gm UNSCH PRN IV 01/10/17 18:00 Albumin Human 100 ml @ 60 mls/hr UNSCH PRN IV 01/10/17 18:00 (NS Flush) 5 ml UNSCH PRN IV FLUSH 01/10/17 18:00 (Heparin Inj) UNSCH PRN .XX 01/10/17 18:00 (Gentamicin (Dialysis) Inj) 20 mg UNSCH PRN OTHER 01/10/17 18:00 01/10/17 22:03 (Zofran Inj) 4 mg UNSCH PRN IV PUSH 01/10/17 18:00 01/18/17 08:51 (Tylenol) 650 mg UNSCH PRN PO 01/10/17 18:00 (Benadryl) 25 mg UNSCH PRN PO 01/10/17 18:00 (Nitrostat Sl) 0.4 mg UNSCH PRN SL 01/10/17 18:00 (Catapres) 0.1 mg UNSCH PRN PO 01/10/17 18:00 01/15/17 02:07 (Gelfoam 12 Mm/7 Mm Top) 1 foam UNSCH PRN TOP 01/10/17 18:00 (D50w (Vial) Inj) 50 ml UNSCH PRN IV PUSH 01/10/17 22:30 01/10/17 18:05 (Glucagon Inj) 1 mg UNSCH PRN OTHER 01/10/17 22:30 Dexmedetomidine HCl 200 mcg/ Sodium Chloride 52 ml @ 5.46 mls/hr TITRATE PRN IV 01/11/17 00:00 01/12/17 14:53 (Haldol Inj) 5 mg Q4H PRN IV 01/12/17 17:00 01/20/17 05:09 Sodium Chloride 38.5 meq/Sterile Water 1,009.625 ml @ 84 mls/hr Q12H2M IV 01/13/17 15:00 01/20/17 03:26 (Reglan Inj) 5 mg Q8H IV PUSH 01/15/17 10:00 01/19/17 18:43 (Apresoline Inj) 10 mg Q4H PRN IV PUSH 01/15/17 10:00 Potassium Chloride 100 ml @ 50 mls/hr Q2H IV 01/15/17 10:00 Future Hold 01/16/17 06:11 (Heparin Inj) 5,000 units UNSCH PRN IV PUSH 01/15/17 17:15 (Heparin Inj) 2,500 units UNSCH PRN IV PUSH 01/15/17 17:15 01/16/17 06:17 Heparin Sodium/ Dextrose 250 ml @ 10 mls/hr TITRATE PRN IV 01/15/17 16:00 01/20/17 05:11 (Catapres-Tts 0.3 Mg Patch.7d) 1 patch Q7D T-DERMAL 01/16/17 10:00 01/16/17 14:14 Miscellaneous Information 1 Q7D T-DERMAL 01/16/17 10:00 01/16/17 10:00 (Mucinex Er) 600 mg BID PO 01/16/17 21:00 01/18/17 08:51 (Oscal) 500 mg TID PO 01/17/17 13:00 01/19/17 18:42 (K-Phos) 500 mg Q12HR PO 01/17/17 14:00 01/19/17 08:15 (SEROquel) 25 mg BID PO 01/17/17 21:00 01/18/17 08:51 (Lopressor) 50 mg Q8HR PO 01/19/17 14:00 01/19/17 15:44 (Cardizem) 90 mg TID PO 01/19/17 09:00 01/19/17 18:42 (Coumadin) 5 mg DAILY@1600 PO 01/19/17 16:00 01/19/17 15:43 Vital Signs / I&O Vital Signs Date Time Temp Pulse Resp B/P (MAP) Pulse Ox O2 Delivery O2 Flow Rate FiO2 01/20/17 04:00 98.0 116 27 148/93 (111) 98 01/20/17 00:00 98.1 100 25 118/74 (89) 98 01/19/17 20:00 98.2 84 25 97/63 (74) 98 01/19/17 18:00 116 01/19/17 16:00 116 01/19/17 16:00 98.6 116 20 155/83 (107) 94 01/19/17 14:00 102 01/19/17 12:00 104 01/19/17 12:00 98.3 104 24 143/87 (105) 95 01/19/17 10:04 98.8 109 20 127/75 (92) 97 01/19/17 10:00 108 I/O 01/19/17 01/19/17 01/19/17 01/20/17 01/20/17 01/20/17 07:00 15:00 23:00 07:00 15:00 23:00 Intake Total 240 ml 2050 ml 1850 ml Output Total 1100 ml 1600 ml 975 ml Balance -860 ml 450 ml 875 ml Intake Oral 240 ml 650 ml 480 ml IV Total 1400 ml 1370 ml Output Urine Total 1100 ml 1600 ml 975 ml # Bowel Movements 0 1 0 Physical Exam GENERAL: Well developed, well nourished. No acute distress. HEENT: Jugular venous pressure is normal. CHEST: Lungs clear to auscultation anteriorly. CARDIAC: Irregular rhythm without S3, S4, or murmur. ABDOMEN: Soft, nontender, no hepatosplenomegaly. Bowel sounds present. EXTREMITIES: No clubbing, cyanosis, or edema. Laboratory Laboratory Tests Test 01/19/17 12:20 01/20/17 06:04 01/20/17 06:08 Activated Partial Thromboplast Time 52.0 SEC 57.8 SEC Blood Urea Nitrogen 34 MG/DL Creatinine 2.31 MG/DL Random Glucose 193 MG/DL Total Protein 6.5 GM/DL Calcium Level 7.3 MG/DL Magnesium Level 1.4 MG/DL Sodium Level 135 MEQ/L Potassium Level 3.3 MEQ/L Chloride Level 101 MEQ/L Carbon Dioxide Level 25.6 MEQ/L Anion Gap 8 MEQ/L Estimat Glomerular Filtration Rate 36 ML/MIN Protein Corrected Calcium 7.6 MG/DL White Blood Count 14.2 TH/MM3 Red Blood Count 3.45 MIL/MM3 Hemoglobin 10.1 GM/DL Hematocrit 30.0 % Mean Corpuscular Volume 87.1 FL Mean Corpuscular Hemoglobin 29.2 PG Mean Corpuscular Hemoglobin Concent 33.5 % Red Cell Distribution Width 14.7 % Platelet Count 115 TH/MM3 Mean Platelet Volume 10.6 FL Prothrombin Time 19.3 SEC Prothromb Time International Ratio 1.7 RATIO Assessment and Plan Problem List: (1) Atrial flutter ICD Codes: I48.92 - Unspecified atrial flutter Status: Acute Plan: Monitoring more c/w atrial fibrillation. HR's fluctuating, mildly elevated this morning at rest. Left ventricular function by echo normal. With his history of CVA, hypertension, diabetes, his thromboembolic risk is at least moderately elevated. Patient refusing some medications. REC in light of his medical noncompliance, and likelihood he will not be compliant with PT/INR checks as an outpatient, recommend stop warfarin (2) Elevated troponin ICD Codes: R74.8 - Abnormal levels of other serum enzymes Status: Acute Plan: Stable. No angina like symptoms recently. Normal LV function by echo, recent non-ischemic nuclear stress; likely due to his renal failure, anemia, and metabolic derangements. Rec no additional cardiac w/u. (3) HTN (hypertension) ICD Codes: I10 - Essential (primary) hypertension Status: Chronic Plan: Fluctuating BP's, mostly normotensive. Continue to monitor. Code Status no code Discussed Condition With patient Problem Qualifiers (1) Atrial flutter: Qualified Codes: I48.3 - Typical atrial flutter (2) HTN (hypertension): Qualified Codes: I10 - Essential (primary) hypertension Nikolay Oliveros MD Jan 20, 2017 08:19
[2017-01-20] MEDS ORDERED: LABETALOL HCL 100 MG/20 ML VIAL IV PUSH PRN (08:30)
[2017-01-20] MEDS: DILTIAZEM-CD 300 MG CAP ER PO SCH (09:00)
--- NOTE | 2017-01-20 10:23 | HHI.PR ---
Subjective Remarks Discussed at this time Mr. Tony, stable as per Psychiatry specialist did not meet inpatient Criteria Continue to refuse care. improvement specialist following, with diagnosis of Atrial Fibrillation, recommended to stop Warfarin due to Non compliance, has elevated Troponin but no angina like symptoms, normal left ventricular function by Echo recent non ischemic nuclear stress. Psychiatry specialist following with diagnosis of Delirium due to another medical condition, due to lack of cooperation inability to express a rational choice and inability to verbalize reason of hospitalization and nature of her medical illnesses the patient doesn't have decision making capacity to refuse medications of to leave AMA. Objective Vital Signs Date Time Temp Pulse Resp B/P (MAP) Pulse Ox O2 Delivery O2 Flow Rate FiO2 01/20/17 08:00 98.4 115 24 154/87 (109) 97 01/20/17 08:00 115 01/20/17 04:00 98.0 116 27 148/93 (111) 98 01/20/17 00:00 98.1 100 25 118/74 (89) 98 01/19/17 20:00 98.2 84 25 97/63 (74) 98 01/19/17 18:00 116 01/19/17 16:00 116 01/19/17 16:00 98.6 116 20 155/83 (107) 94 01/19/17 14:00 102 01/19/17 12:00 104 01/19/17 12:00 98.3 104 24 143/87 (105) 95 I/O 01/19/17 01/19/17 01/19/17 01/20/17 01/20/17 01/20/17 07:00 15:00 23:00 07:00 15:00 23:00 Intake Total 240 ml 2050 ml 1850 ml Output Total 1100 ml 1600 ml 975 ml Balance -860 ml 450 ml 875 ml Intake Oral 240 ml 650 ml 480 ml IV Total 1400 ml 1370 ml Output Urine Total 1100 ml 1600 ml 975 ml # Bowel Movements 0 1 0 Result Diagram: 01/20/17 0608 01/20/17 0604 Imaging Last Impressions Abdomen X-Ray 01/18/17 0000 Signed Impressions: Service Date/Time: Wednesday, January 18, 2017 08:02 - CONCLUSION: No acute disease. Edward Mata MD Chest X-Ray 01/14/17 1114 Signed Impressions: Service Date/Time: Saturday, January 14, 2017 11:54 - CONCLUSION: 1. Compensated cardiomegaly. 2. Minimal bibasilar airspace disease, likely atelectasis. 3. No significant interval change. Johnathon Ramon MD Head CT 01/10/17 1257 Signed Impressions: Service Date/Time: Tuesday, January 10, 2017 13:32 - CONCLUSION: No acute disease. Jermaine Malone Jr., MD Renal Ultrasound 01/10/17 0000 Signed Impressions: Service Date/Time: Tuesday, January 10, 2017 17:01 - CONCLUSION: Normal examination. Jermaine Malone Jr., MD Procedures Hemodialysis. Other Results Laboratory Tests Test 01/10/17 16:57 01/10/17 18:00 01/10/17 20:17 01/11/17 03:40 Blood Gas Inspired Oxygen 21 % Nasal Screen MRSA (PCR) MRSA NOT DETECTED Hepatitis A IgM Antibody NEGATIVE Hepatitis B Surface Antigen NEGATIVE Hepatitis B Core IgM Antibody NEGATIVE Hepatitis C Antibody NEGATIVE Troponin I 2.31 NG/ML Test 01/11/17 17:38 01/15/17 07:20 01/17/17 05:10 01/18/17 10:06 Blood Gas Puncture Site LT RADIAL Blood Gas Patient Temperature 98.6 Blood Gas HCO3 19 mmol/L Blood Gas Base Excess -5.3 mmol/L Blood Gas Oxygen Saturation 94 % Arterial Blood pH 7.37 Arterial Blood Partial Pressure CO2 34 mmHg Arterial Blood Partial Pressure O2 86 mmHg Arterial Blood Oxygen Content 16.4 Vol % Arterial Blood Carboxyhemoglobin 1.7 % Arterial Blood Methemoglobin 1.2 % Blood Gas Hemoglobin 12.4 G/DL Oxygen Delivery Device NASAL CANNULA Blood Gas Liter Flow 1 L/M Urine Color YELLOW Urine Turbidity CLEAR Urine pH 6.5 Urine Specific [place] 1.017 Urine Protein 100 mg/dL Urine Glucose (UA) NEG mg/dL Urine Ketones 10 mg/dL Urine Occult Blood SMALL Urine Nitrite NEG Urine Bilirubin NEG Urine Urobilinogen 2.0 MG/DL Urine Leukocyte Esterase NEG Urine RBC 10 /hpf Urine WBC 3 /hpf Urine Squamous Epithelial Cells <1 /hpf Urine Amorphous Sediment OCC Urine Bacteria RARE /hpf Urine Mucus FEW /lpf Microscopic Urinalysis Comment CULT NOT INDICATED Neutrophils (%) (Auto) 92.9 % Lymphocytes (%) (Auto) 2.6 % Monocytes (%) (Auto) 4.4 % Eosinophils (%) (Auto) 0.0 % Basophils (%) (Auto) 0.1 % Neutrophils # (Auto) 19.0 TH/MM3 Lymphocytes # (Auto) 0.5 TH/MM3 Monocytes # (Auto) 0.9 TH/MM3 Eosinophils # (Auto) 0.0 TH/MM3 Basophils # (Auto) 0.0 TH/MM3 CBC Comment DIFF FINAL Differential Comment Hemoglobin A1c 7.0 % Blood Urea Nitrogen 23 MG/DL 28 MG/DL Creatinine 2.11 MG/DL 2.18 MG/DL Random Glucose 190 MG/DL 157 MG/DL Total Protein 7.2 GM/DL 6.2 GM/DL Albumin 2.8 GM/DL Calcium Level 6.6 MG/DL 6.4 MG/DL Phosphorus Level 1.2 MG/DL 1.5 MG/DL Magnesium Level 0.9 MG/DL 1.4 MG/DL Alkaline Phosphatase 57 U/L Aspartate Amino Transf (AST/SGOT) 20 U/L Alanine Aminotransferase (ALT/SGPT) 19 U/L Total Bilirubin 1.9 MG/DL Sodium Level 137 MEQ/L 139 MEQ/L Potassium Level 4.1 MEQ/L 3.4 MEQ/L Chloride Level 104 MEQ/L 103 MEQ/L Carbon Dioxide Level 26.1 MEQ/L 25.3 MEQ/L Free Thyroxine 1.77 NG/DL Thyroid Stimulating Hormone 3rd Gen 1.190 uIU/ML Test 01/20/17 06:04 01/20/17 06:08 Blood Urea Nitrogen 34 MG/DL Creatinine 2.31 MG/DL Random Glucose 193 MG/DL Total Protein 6.5 GM/DL Calcium Level 7.3 MG/DL Magnesium Level 1.4 MG/DL Sodium Level 135 MEQ/L Potassium Level 3.3 MEQ/L Chloride Level 101 MEQ/L Carbon Dioxide Level 25.6 MEQ/L Anion Gap 8 MEQ/L Estimat Glomerular Filtration Rate 36 ML/MIN Protein Corrected Calcium 7.6 MG/DL White Blood Count 14.2 TH/MM3 Red Blood Count 3.45 MIL/MM3 Hemoglobin 10.1 GM/DL Hematocrit 30.0 % Mean Corpuscular Volume 87.1 FL Mean Corpuscular Hemoglobin 29.2 PG Mean Corpuscular Hemoglobin Concent 33.5 % Red Cell Distribution Width 14.7 % Platelet Count 115 TH/MM3 Mean Platelet Volume 10.6 FL Prothrombin Time 19.3 SEC Prothromb Time International Ratio 1.7 RATIO Activated Partial Thromboplast Time 57.8 SEC Objective Remarks GENERAL: Lethargic as per nurse gave him Haldol. CV: Irregular rate with tachycardia and irregular rhythm. No rubs murmurs or gallops. Resp: Clear to all station bilaterally Abdomen: Soft but distended. Negative tenderness palpation. No peritoneal signs. Extremity negative for any edema. Neuro: Lethargic. Medications and IVs Current Medications Medications (Trade) Dose Ordered Sig/Mansi Route Start Time Stop Time Status Last Admin (Tylenol) 650 mg Q6H PRN PO 01/10/17 17:00 (Proair Hfa Inh) 2 puff Q6H PRN INH 01/10/17 17:00 (Lipitor) 80 mg HS PO 01/10/17 21:00 01/16/17 21:53 (Nitrostat Sl) 0.4 mg Q3H PRN SL 01/10/17 17:00 (Ecotrin Ec) 81 mg DAILY PO 01/10/17 17:00 01/18/17 08:52 (NovoLOG SUPPLEMENTAL SCALE) 1 Q4H SQ 01/10/17 17:00 01/17/17 08:59 (NS Flush) 2 ml BID IV FLUSH 01/10/17 21:00 01/20/17 08:11 Miscellaneous Information 1 Q361D XX 01/10/17 17:15 (Chlorhexidine 2% Cloth) Taper DAILY@04 TOP 01/11/17 04:00 01/07/18 03:59 01/17/17 01:29 (Chlorhexidine 2% Cloth) 3 pack UNSCH PRN TOP 01/10/17 17:15 (Afia-Colace) 1 tab BID PO 01/10/17 21:00 01/18/17 08:51 (Milk Of Magnesia Liq) 30 ml Q12H PRN PO 01/10/17 17:15 (Senokot) 17.2 mg Q12H PRN PO 01/10/17 17:15 (Dulcolax Supp) 10 mg DAILY PRN RECTAL 01/10/17 17:15 (Lactulose Liq) 30 ml DAILY PRN PO 01/10/17 17:15 Sodium Chloride 1,000 ml @ 0 mls/hr Q0M PRN OTHER 01/10/17 17:47 01/10/17 22:05 (Heparin Inj) 8,000 units UNSCH PRN IV FLUSH 01/10/17 18:00 Sodium Chloride 1,000 ml @ 200 mls/hr Q5H PRN IV 01/10/17 17:47 Sodium Chloride 1,000 ml @ 0 mls/hr Q0M PRN OTHER 01/10/17 17:47 (Mannitol Inj) 12.5 gm UNSCH PRN IV 01/10/17 18:00 Albumin Human 100 ml @ 60 mls/hr UNSCH PRN IV 01/10/17 18:00 (NS Flush) 5 ml UNSCH PRN IV FLUSH 01/10/17 18:00 (Heparin Inj) UNSCH PRN .XX 01/10/17 18:00 (Gentamicin (Dialysis) Inj) 20 mg UNSCH PRN OTHER 01/10/17 18:00 01/10/17 22:03 (Zofran Inj) 4 mg UNSCH PRN IV PUSH 01/10/17 18:00 01/18/17 08:51 (Tylenol) 650 mg UNSCH PRN PO 01/10/17 18:00 (Benadryl) 25 mg UNSCH PRN PO 01/10/17 18:00 (Nitrostat Sl) 0.4 mg UNSCH PRN SL 01/10/17 18:00 (Catapres) 0.1 mg UNSCH PRN PO 01/10/17 18:00 01/15/17 02:07 (Gelfoam 12 Mm/7 Mm Top) 1 foam UNSCH PRN TOP 01/10/17 18:00 (D50w (Vial) Inj) 50 ml UNSCH PRN IV PUSH 01/10/17 22:30 01/10/17 18:05 (Glucagon Inj) 1 mg UNSCH PRN OTHER 01/10/17 22:30 Dexmedetomidine HCl 200 mcg/ Sodium Chloride 52 ml @ 5.46 mls/hr TITRATE PRN IV 01/11/17 00:00 01/12/17 14:53 (Haldol Inj) 5 mg Q4H PRN IV 01/12/17 17:00 01/20/17 10:02 Sodium Chloride 38.5 meq/Sterile Water 1,009.625 ml @ 84 mls/hr Q12H2M IV 01/13/17 15:00 01/20/17 03:26 (Reglan Inj) 5 mg Q8H IV PUSH 01/15/17 10:00 01/20/17 10:02 (Apresoline Inj) 10 mg Q4H PRN IV PUSH 01/15/17 10:00 Potassium Chloride 100 ml @ 50 mls/hr Q2H IV 01/15/17 10:00 Future Hold 01/16/17 06:11 (Heparin Inj) 5,000 units UNSCH PRN IV PUSH 01/15/17 17:15 (Heparin Inj) 2,500 units UNSCH PRN IV PUSH 01/15/17 17:15 01/16/17 06:17 (Catapres-Tts 0.3 Mg Patch.7d) 1 patch Q7D T-DERMAL 01/16/17 10:00 01/16/17 14:14 Miscellaneous Information 1 Q7D T-DERMAL 01/16/17 10:00 01/16/17 10:00 (Mucinex Er) 600 mg BID PO 01/16/17 21:00 01/18/17 08:51 (Oscal) 500 mg TID PO 01/17/17 13:00 01/19/17 18:42 (K-Phos) 500 mg Q12HR PO 01/17/17 14:00 01/19/17 08:15 (SEROquel) 25 mg BID PO 01/17/17 21:00 01/18/17 08:51 (Lopressor) 50 mg Q8HR PO 01/19/17 14:00 01/19/17 15:44 (Cardizem Cd) 300 mg DAILY PO 01/20/17 09:00 (Trandate Inj) 10 mg Q4H PRN IV PUSH 01/20/17 08:30 A/P Assessment and Plan 1. Acute Metabolic Encephalopathy/Agitated Delirium, History of Previous CVA with left hemiparesis, at this time Lethargic due to Haldol and basal pathology. 2. Severe combined Metabolic and respiratory acidosis resolved Past Tobacco dependence continue Bronchodilator, Mucolytic and incentive spirometry 3. Atrial Flutter/Fibrillation with RVR/Elevated Troponin, History of CAD and Hypertension, Cardiology following, recommended Metoprolol Warfarin, equivocal Troponin elevation, recommended by Cardiology to stop Warfarin due to non compliance. 4. Acute kidney Injury on chronic kidney disease, slowly improving, Nephrology specialist following. 5. DM II/Dyslipidemia continue sliding scale. 6. Electrolyte derangement Slowly improving 7. Elevated Troponin but no angina like symptoms, normal left ventricular function by Echo recent non ischemic nuclear stress. 8. Delirium due to another medical condition, due to lack of cooperation inability to express a rational choice and inability to verbalize reason of hospitalization and nature of her medical illnesses the patient doesn't have decision making capacity to refuse medications of to leave AMA. Discussed with nurse Mr. Tony. PROPH: - Bilateral lower extremity SCDs. Heparin IV DCd, protonix 40 mg IV q12 Discharge Planning Not yet ready for discharge continue Critical care management by now. Dane Gleason MD Jan 20, 2017 10:23
--- NOTE | 2017-01-20 11:53 | HHI.NPPN ---
Subjective History of Present Illness 56-year-old male with past medical history of chronic kidney disease, diabetes mellitus, history of cerebrovascular accident with hemiparesis, ischemic heart disease, hypertension, atrial fibrillation who came to the hospital with generalized weakness and dizziness. I was called to see the patient because of very high BUN and creatinine, metabolic acidosis and hyperkalemia. The patient has known history of chronic kidney disease and his baseline creatinine seems to me in the range of 1.6 to 2.2. Additional Remarks Patient is not cooperating not eating well Review of Systems General Constitutional: Fatigue Cardiovascular Cardiac: RODRÍGUEZ Objective Data Data Vital Signs Date Time Temp Pulse Resp B/P (MAP) Pulse Ox O2 Delivery O2 Flow Rate FiO2 01/20/17 08:00 98.4 115 24 154/87 (109) 97 01/20/17 08:00 115 01/20/17 04:00 98.0 116 27 148/93 (111) 98 01/20/17 00:00 98.1 100 25 118/74 (89) 98 01/19/17 20:00 98.2 84 25 97/63 (74) 98 01/19/17 18:00 116 01/19/17 16:00 116 01/19/17 16:00 98.6 116 20 155/83 (107) 94 01/19/17 14:00 102 01/19/17 12:00 104 01/19/17 12:00 98.3 104 24 143/87 (105) 95 -: 01/20/17 0608 01/20/17 0604 Physical Exam General Appearance: No Acute Distress, Comfortable, Anxious Throat Throat Exam: Oral Mucosa Sebastian & Moist Pulmonary Resp Exam: Breath Sounds Equal, No Distress, Rhonchi, Decreased Bases, Diminished Breath Sounds Cardiology CV Exam: Arrhythmia Gastrointestinal/Abdomen GI Exam: Soft, Non-Tender, Bowel Sounds Present Extremeties Extremities Exam: Trace Edema Neurologic Neuro Exam: Alert, Awake Assessment/Plan Assessment Summary: ABNER/Acute Renal Failure, CKD Stage III Electrolyte Assessment: Hyperkalemia, Hypocalcemia, Metabolic Acidosis Problem List: (1) History of CVA (cerebrovascular accident) ICD Codes: Z86.73 - Personal history of transient ischemic attack (TIA), and cerebral infarction without residual deficits Status: Chronic (2) HTN (hypertension) ICD Codes: I10 - Essential (primary) hypertension Status: Chronic (3) Diabetes ICD Codes: E11.9 - Type 2 diabetes mellitus without complications Status: Acute (4) Metabolic acidemia ICD Codes: E87.2 - Acidosis (5) Hyperkalemia ICD Codes: E87.5 - Hyperkalemia Status: Acute (6) Acute renal failure ICD Codes: N17.9 - Acute kidney failure, unspecified Status: Acute Plan Patient has chronic kidney disease and develop ABNER. Also had metabolic acidosis and Hyperkalemia. Patient has HD done Thursday and then started resolving ARF ATN resolving Cr higher not eating well refusing medications cr 2.31 again as not taking enough liquids not cooperating Magnesium and K replace non compliant Problem Qualifiers (1) HTN (hypertension): Qualified Codes: I10 - Essential (primary) hypertension (2) Diabetes: (3) Acute renal failure: Qualified Codes: N17.9 - Acute kidney failure, unspecified Parth Ruiz MD Jan 20, 2017 11:53
[2017-01-20] MEDS ORDERED: MAGNESIUM SULFATE 1 GM PREMIX 100 ML IV ONE (12:00)
[2017-01-20] MEDS ORDERED: POTASSIUM CHLOR 20 MEQ PREMIX 100 ML IV ONE (13:00)
[2017-01-20 14:18] LABS: APTT (PATIENT) 71.8 SEC (24.3-30.1)
--- NOTE | 2017-01-20 16:22 | HHI.HCPN ---
Reason for visit a. To assist with evaluation and management of symptoms including: pain. b. To assist medical decision maker(s) with: better understanding of current medical conditions; weighing benefits/burdens of medical treatment options; making medical treatment decisions. . Subjective/Interval History Patient seen and examined in ICU. He sleeps through my visit. Afebrile. Tachycardic. WBC 14.2. Creatinine 2.31. Blood cultures no growth in 5 days. Nurse reports patient has not been eating or taking PO meds again today. . Family/friend interactions Spoke with brotherYareli at bedside when he arrived later in the day. Medical update provided. Explained renal function worsening. Reviewed upcoming possible decisions including dialysis, feeding tube etc. He desires continued aggressive care. Welcomes continued palliative care updates. . Advance Directives Living Will: Never completed Health Care Surrogate: Never completed Durable Power of Retail Personal Banker: Never completed Advance Directive Specifics Health Care Surrogate(s): Patient is incapacitated to make his own health care decisions, uncertain if he will regain capacity. Single. No children. Mother in a intermediate with underlying schizophrenia, not capacitated herself. Father . 2 sisters and one brother. 2 sisters, Lizeth and Alejandrina do not wish to serve as healthcare proxy decision makers. Therefore, healthcare proxy decision-making will fall to the patient's brother,Isabela Andrews, he is willing to serve in this role. . Objective Vital Signs Date Time Temp Pulse Resp B/P (MAP) Pulse Ox O2 Delivery O2 Flow Rate FiO2 01/20/17 14:00 102 01/20/17 12:00 114 01/20/17 12:00 98.2 108 22 129/72 (91) 97 01/20/17 10:00 103 01/20/17 08:00 98.4 115 24 154/87 (109) 97 01/20/17 08:00 115 01/20/17 04:00 98.0 116 27 148/93 (111) 98 01/20/17 00:00 98.1 100 25 118/74 (89) 98 01/19/17 20:00 98.2 84 25 97/63 (74) 98 01/19/17 18:00 116 01/19/17 16:00 116 01/19/17 16:00 98.6 116 20 155/83 (107) 94 Intake & Output 01/20/17 01/20/17 07:00 19:00 Intake Total 1950 ml Output Total 975 ml Balance 975 ml Intake Oral 480 ml IV Total 1470 ml Output Urine Total 975 ml # Bowel Movements 0 Physical Exam CONSTITUTIONAL/GENERAL: This is an adequately nourished patient, in no apparent distress. TUBES/LINES/DRAINS: PIV, [place]. SKIN: No jaundice, rashes, or lesions. Ecchymoses on upper extremities. No wounds seen anteriorly. Skin temperature appropriate. Not diaphoretic. EYES: eyes closed. CARDIOVASCULAR: Irregular, atrial fibrillation on telemetry. RESPIRATORY/CHEST: Symmetric, unlabored respirations. Clear to auscultation. Breath sounds equal bilaterally. No wheezes, rales, or rhonchi. GASTROINTESTINAL: Abdomen soft, non-tender, nondistended. No guarding. Bowel sounds present. GENITOURINARY: Without palpable bladder distension. Catheter in place. 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 Extremities without clubbing, cyanosis, or edema. No mottling or clubbing. NEUROLOGICAL: asleep. PSYCHIATRIC: asleep. . Diagnostic Tests Laboratory Laboratory Tests Test 01/18/17 10:06 01/19/17 07:01 01/19/17 12:20 01/20/17 06:04 White Blood Count 14.8 TH/MM3 (4.0-11.0) 12.8 TH/MM3 (4.0-11.0) Red Blood Count 3.47 MIL/MM3 (4.50-5.90) 3.70 MIL/MM3 (4.50-5.90) Hemoglobin 10.1 GM/DL (13.0-17.0) 10.6 GM/DL (13.0-17.0) Hematocrit 30.7 % (39.0-51.0) 32.6 % (39.0-51.0) Mean Corpuscular Volume 88.6 FL (80.0-100.0) 88.1 FL (80.0-100.0) Mean Corpuscular Hemoglobin 29.2 PG (27.0-34.0) 28.7 PG (27.0-34.0) Mean Corpuscular Hemoglobin Concent 33.0 % (32.0-36.0) 32.6 % (32.0-36.0) Red Cell Distribution Width 14.4 % (11.6-17.2) 14.5 % (11.6-17.2) Platelet Count 96 TH/MM3 (150-450) 109 TH/MM3 (150-450) Mean Platelet Volume 9.5 FL (7.0-11.0) 10.3 FL (7.0-11.0) Activated Partial Thromboplast Time 61.9 SEC (24.3-30.1) 51.6 SEC (24.3-30.1) 52.0 SEC (24.3-30.1) Blood Urea Nitrogen 28 MG/DL (7-18) 33 MG/DL (7-18) 34 MG/DL (7-18) Creatinine 2.18 MG/DL (0.60-1.30) 2.25 MG/DL (0.60-1.30) 2.31 MG/DL (0.60-1.30) Random Glucose 157 MG/DL (74-106) 175 MG/DL (74-106) 193 MG/DL (74-106) Total Protein 6.2 GM/DL (6.4-8.2) 6.5 GM/DL (6.4-8.2) Calcium Level 6.4 MG/DL (8.5-10.1) 7.5 MG/DL (8.5-10.1) 7.3 MG/DL (8.5-10.1) Phosphorus Level 1.5 MG/DL (2.5-4.9) Magnesium Level 1.4 MG/DL (1.5-2.5) 1.6 MG/DL (1.5-2.5) 1.4 MG/DL (1.5-2.5) Sodium Level 139 MEQ/L (136-145) 136 MEQ/L (136-145) 135 MEQ/L (136-145) Potassium Level 3.4 MEQ/L (3.5-5.1) 3.5 MEQ/L (3.5-5.1) 3.3 MEQ/L (3.5-5.1) Chloride Level 103 MEQ/L (98-107) 102 MEQ/L (98-107) 101 MEQ/L (98-107) Carbon Dioxide Level 25.3 MEQ/L (21.0-32.0) 24.1 MEQ/L (21.0-32.0) 25.6 MEQ/L (21.0-32.0) Anion Gap 11 MEQ/L (5-15) 10 MEQ/L (5-15) 8 MEQ/L (5-15) Estimat Glomerular Filtration Rate 38 ML/MIN (>89) 37 ML/MIN (>89) 36 ML/MIN (>89) Protein Corrected Calcium 6.8 MG/DL (8.5-10.1) 7.6 MG/DL (8.5-10.1) Test 01/20/17 06:08 01/20/17 13:00 White Blood Count 14.2 TH/MM3 (4.0-11.0) Red Blood Count 3.45 MIL/MM3 (4.50-5.90) Hemoglobin 10.1 GM/DL (13.0-17.0) Hematocrit 30.0 % (39.0-51.0) Mean Corpuscular Volume 87.1 FL (80.0-100.0) Mean Corpuscular Hemoglobin 29.2 PG (27.0-34.0) Mean Corpuscular Hemoglobin Concent 33.5 % (32.0-36.0) Red Cell Distribution Width 14.7 % (11.6-17.2) Platelet Count 115 TH/MM3 (150-450) Mean Platelet Volume 10.6 FL (7.0-11.0) Prothrombin Time 19.3 SEC (9.8-11.6) Prothromb Time International Ratio 1.7 RATIO Activated Partial Thromboplast Time 57.8 SEC (24.3-30.1) 71.8 SEC (24.3-30.1) Result Diagram: 01/20/17 0608 01/20/17 0604 Microbiology Microbiology Date/Time Source Procedure Growth Status 01/14/17 11:52 Blood Peripheral Aerobic Blood Culture - Final NO GROWTH IN 5 DAYS Complete 01/14/17 11:52 Blood Peripheral Anaerobic Blood Culture - Final NO GROWTH IN 5 DAYS Complete Imaging Last Impressions Abdomen X-Ray 01/18/17 0000 Signed Impressions: Service Date/Time: Wednesday, January 18, 2017 08:02 - CONCLUSION: No acute disease. Edward Mata MD Chest X-Ray 01/14/17 1114 Signed Impressions: Service Date/Time: Saturday, January 14, 2017 11:54 - CONCLUSION: 1. Compensated cardiomegaly. 2. Minimal bibasilar airspace disease, likely atelectasis. 3. No significant interval change. Johnathon Ramon MD Head CT 01/10/17 1257 Signed Impressions: Service Date/Time: Tuesday, January 10, 2017 13:32 - CONCLUSION: No acute disease. Jermaine Malone Jr., MD Renal Ultrasound 01/10/17 0000 Signed Impressions: Service Date/Time: Tuesday, January 10, 2017 17:01 - CONCLUSION: Normal examination. Jermaine Malone Jr., MD Assessment and Plan Disease Oriented Problem List: (1) Leukocytosis (2) Malnutrition (3) HTN (hypertension) (4) Atrial flutter (5) Acute metabolic encephalopathy (6) Acute on chronic kidney failure (7) Elevated troponin (8) Diabetes Symptom Scale: (1) Pain 0-10 Scale: Unable to quantify Comment: Patient not answering most questions. (2) Weakness 0-10 Scale: Unable to quantify Comment: Secondary to prior CVA, left hemiparesis Pertinent Non-Medical Issues Psychosocial: Single. No children. Disabled. Brother, Isabela Andrews is serving as healthcare proxy decision maker per [place] statutes. Spiritual: [employer] caroline. Legal:Patient deemed incapacitated per psychiatry to make his own health care decisions, uncertain if he will regain capacity. Single. No children. Mother in a intermediate with underlying schizophrenia, not capacitated herself. Father . 2 sisters and one brother. 2 sisters, Lizeth and Alejandrina do not wish to serve as healthcare proxy decision makers. Therefore, healthcare proxy decision-making will fall to the patient's brother,Isabela Andrews, he is willing to serve in this role. Ethical issues impacting care: no known concerns at this time. . Important Contacts * Isabela Andrews, brother/HCP: [phone] * Nathalyryan Isaiah, ex sister in law (D[place]ton ex- - who trusts): * Alta Andrews, sister opted out of HCP decision-making and [phone] * Alejandrina sifuentes, sister, opted out of HCP decision [phone] * Kylee Kendall, mother, incapacitated, in SNF . Prognosis Mr. Andrews is a 56-year-old male with long history of noncompliance, refusing medication, questionable underlying psychiatric disease, admitted with acute on chronic renal failure, coronary artery disease, atrial fib/flutter refusing medications. Patient remains high risk for repeat hospitalization, further decline or even . Uncertain if patient has underlying psychiatric disease if this was treated would he be more readily open to taking medications. Will attempt to discuss with psychiatry. Family feels patient has had psychiatric issues since he was a child that were never diagnosed. . Code Status: No Code Plan * Decision Maker: Patient deemed incapacitated per psychiatry to make his own health care decisions, uncertain if he will regain capacity. Single. No children. Mother in a intermediate with underlying schizophrenia, not capacitated herself. Father . 2 sisters and one brother. 2 sisters, Lizeth and Alejandrina do not wish to serve as healthcare proxy decision makers. Therefore, healthcare proxy decision-making will fall to the patient's brother, Yareli Andrews, he is willing to serve in this role. * NO CODE - [place] order signed by Yareli (HCP) and placed on chart. * Palliative care spoke with BrotherYareli at bedside when he arrived later in the day. Medical update provided. Explained renal function worsening. Reviewed upcoming possible decisions including dialysis, feeding tube etc. He desires continued aggressive care. Welcomes continued palliative care updates. * SYMPTOMS: Pain: denies pain during my visit. Weakness: debility due to prior stroke. * Palliative care will continue to follow throughout hospital course to assist with symptom management and clarification of goals as needed. . Attestation To help prompt me to consider important information that might be impacting today's encounter and assessment, information from prior notes written by myself or my colleagues may have been "brought forward" into today's note. My signature on this note, however, is an attestation that I personally performed the exam, history, and/or decision-making noted today, and, unless otherwise indicated, the interactions with patient, family, and staff as well as the review of records all occurred today. I also attest that the listed assessment and stated plan reflect my best clinical judgment today based on the combination of historical information, prior notes, and today's exam/ interactions. When time spent is documented, it refers only to time spent today by the signer, or if indicated, combined time spent today by collaborating physician/nurse practitioner. Dariana Stephen Jan 20, 2017 16:22
[2017-01-20] MEDS: ATORVASTATIN 80 MG TAB PO SCH (20:54)
[2017-01-21] VITALS (10 sets, daily range): BP systolic 104–123; BP diastolic 62–88; PULSE 87–116; RESP 24–34; TEMP 98.2–102.9; O2SAT 87–96
[2017-01-21] MEDS: INSULIN ASPART SUPPLEMENTAL SCALE SQ SCH ×6 (01:00→21:00)
[2017-01-21] MEDS: METOCLOPRAMIDE HCL 10 MG/2 ML VIAL IV PUSH SCH ×3 (01:20→17:48)
[2017-01-21] MEDS: CHLORHEXIDINE GLUCONATE 2 % 1 PACK (2 CLOTHS) TOP SCH (04:00)
[2017-01-21] MEDS: METOPROLOL TARTRATE 50 MG TAB PO SCH ×3 (05:12→22:00)
--- NOTE | 2017-01-21 08:52 | HHI.PR ---
Subjective Remarks chargemaster specialist following, with diagnosis of Atrial Fibrillation, recommended to stop Warfarin due to Non compliance, has elevated Troponin but no angina like symptoms, normal left ventricular function by Echo recent non ischemic nuclear stress. Psychiatry specialist following with diagnosis of Delirium due to another medical condition, due to lack of cooperation inability to express a rational choice and inability to verbalize reason of hospitalization and nature of her medical illnesses the patient doesn't have decision making capacity to refuse medications of to leave AMA. 01/21: patient stable during the day, during the afternoon he started with fever for this reason was asked for CXR, blood cultures lactic acid, new CBC, UA and follow results. no nausea, vomit or diarrhea. Objective Vital Signs Date Time Temp Pulse Resp B/P (MAP) Pulse Ox O2 Delivery O2 Flow Rate FiO2 01/21/17 04:00 98.2 96 24 116/62 (80) 96 01/21/17 00:00 98.3 87 30 105/63 (77) 96 01/20/17 20:00 98.5 109 29 118/70 (86) 96 01/20/17 18:00 99 01/20/17 16:00 113 01/20/17 16:00 98.4 134 24 116/81 (93) 95 01/20/17 14:00 102 01/20/17 12:00 114 01/20/17 12:00 98.2 108 22 129/72 (91) 97 01/20/17 10:00 103 I/O 01/20/17 01/20/17 01/20/17 01/21/17 01/21/17 01/21/17 07:00 15:00 23:00 07:00 15:00 23:00 Intake Total 1850 ml 2735 ml 1045 ml Output Total 975 ml 1800 ml 825 ml Balance 875 ml 935 ml 220 ml Intake Oral 480 ml 800 ml 240 ml IV Total 1370 ml 1935 ml 805 ml Output Urine Total 975 ml 1800 ml 825 ml # Bowel Movements 0 1 0 Result Diagram: 01/20/17 0608 01/20/17 0604 Imaging Last Impressions Abdomen X-Ray 01/18/17 0000 Signed Impressions: Service Date/Time: Wednesday, January 18, 2017 08:02 - CONCLUSION: No acute disease. Edward Mata MD Chest X-Ray 01/14/17 1114 Signed Impressions: Service Date/Time: Saturday, January 14, 2017 11:54 - CONCLUSION: 1. Compensated cardiomegaly. 2. Minimal bibasilar airspace disease, likely atelectasis. 3. No significant interval change. Johnathon Ramon MD Head CT 01/10/17 1257 Signed Impressions: Service Date/Time: Tuesday, January 10, 2017 13:32 - CONCLUSION: No acute disease. Jermaine Malone Jr., MD Renal Ultrasound 01/10/17 0000 Signed Impressions: Service Date/Time: Tuesday, January 10, 2017 17:01 - CONCLUSION: Normal examination. Jermaine Malone Jr., MD Procedures Hemodialysis. Other Results Laboratory Tests Test 01/10/17 16:57 01/10/17 18:00 01/10/17 20:17 01/11/17 03:40 Blood Gas Inspired Oxygen 21 % Nasal Screen MRSA (PCR) MRSA NOT DETECTED Hepatitis A IgM Antibody NEGATIVE Hepatitis B Surface Antigen NEGATIVE Hepatitis B Core IgM Antibody NEGATIVE Hepatitis C Antibody NEGATIVE Troponin I 2.31 NG/ML Test 01/11/17 17:38 01/15/17 07:20 01/17/17 05:10 01/18/17 10:06 Blood Gas Puncture Site LT RADIAL Blood Gas Patient Temperature 98.6 Blood Gas HCO3 19 mmol/L Blood Gas Base Excess -5.3 mmol/L Blood Gas Oxygen Saturation 94 % Arterial Blood pH 7.37 Arterial Blood Partial Pressure CO2 34 mmHg Arterial Blood Partial Pressure O2 86 mmHg Arterial Blood Oxygen Content 16.4 Vol % Arterial Blood Carboxyhemoglobin 1.7 % Arterial Blood Methemoglobin 1.2 % Blood Gas Hemoglobin 12.4 G/DL Oxygen Delivery Device NASAL CANNULA Blood Gas Liter Flow 1 L/M Urine Color YELLOW Urine Turbidity CLEAR Urine pH 6.5 Urine Specific [place] 1.017 Urine Protein 100 mg/dL Urine Glucose (UA) NEG mg/dL Urine Ketones 10 mg/dL Urine Occult Blood SMALL Urine Nitrite NEG Urine Bilirubin NEG Urine Urobilinogen 2.0 MG/DL Urine Leukocyte Esterase NEG Urine RBC 10 /hpf Urine WBC 3 /hpf Urine Squamous Epithelial Cells <1 /hpf Urine Amorphous Sediment OCC Urine Bacteria RARE /hpf Urine Mucus FEW /lpf Microscopic Urinalysis Comment CULT NOT INDICATED Neutrophils (%) (Auto) 92.9 % Lymphocytes (%) (Auto) 2.6 % Monocytes (%) (Auto) 4.4 % Eosinophils (%) (Auto) 0.0 % Basophils (%) (Auto) 0.1 % Neutrophils # (Auto) 19.0 TH/MM3 Lymphocytes # (Auto) 0.5 TH/MM3 Monocytes # (Auto) 0.9 TH/MM3 Eosinophils # (Auto) 0.0 TH/MM3 Basophils # (Auto) 0.0 TH/MM3 CBC Comment DIFF FINAL Differential Comment Hemoglobin A1c 7.0 % Blood Urea Nitrogen 23 MG/DL 28 MG/DL Creatinine 2.11 MG/DL 2.18 MG/DL Random Glucose 190 MG/DL 157 MG/DL Total Protein 7.2 GM/DL 6.2 GM/DL Albumin 2.8 GM/DL Calcium Level 6.6 MG/DL 6.4 MG/DL Phosphorus Level 1.2 MG/DL 1.5 MG/DL Magnesium Level 0.9 MG/DL 1.4 MG/DL Alkaline Phosphatase 57 U/L Aspartate Amino Transf (AST/SGOT) 20 U/L Alanine Aminotransferase (ALT/SGPT) 19 U/L Total Bilirubin 1.9 MG/DL Sodium Level 137 MEQ/L 139 MEQ/L Potassium Level 4.1 MEQ/L 3.4 MEQ/L Chloride Level 104 MEQ/L 103 MEQ/L Carbon Dioxide Level 26.1 MEQ/L 25.3 MEQ/L Free Thyroxine 1.77 NG/DL Thyroid Stimulating Hormone 3rd Gen 1.190 uIU/ML Test 01/20/17 06:04 01/20/17 06:08 01/20/17 13:00 Blood Urea Nitrogen 34 MG/DL Creatinine 2.31 MG/DL Random Glucose 193 MG/DL Total Protein 6.5 GM/DL Calcium Level 7.3 MG/DL Magnesium Level 1.4 MG/DL Sodium Level 135 MEQ/L Potassium Level 3.3 MEQ/L Chloride Level 101 MEQ/L Carbon Dioxide Level 25.6 MEQ/L Anion Gap 8 MEQ/L Estimat Glomerular Filtration Rate 36 ML/MIN Protein Corrected Calcium 7.6 MG/DL White Blood Count 14.2 TH/MM3 Red Blood Count 3.45 MIL/MM3 Hemoglobin 10.1 GM/DL Hematocrit 30.0 % Mean Corpuscular Volume 87.1 FL Mean Corpuscular Hemoglobin 29.2 PG Mean Corpuscular Hemoglobin Concent 33.5 % Red Cell Distribution Width 14.7 % Platelet Count 115 TH/MM3 Mean Platelet Volume 10.6 FL Prothrombin Time 19.3 SEC Prothromb Time International Ratio 1.7 RATIO Activated Partial Thromboplast Time 71.8 SEC Objective Remarks GENERAL: Lethargic as per nurse gave him Haldol. CV: Irregular rate with tachycardia and irregular rhythm. No rubs murmurs or gallops. Resp: Clear to all station bilaterally Abdomen: Soft but distended. Negative tenderness palpation. No peritoneal signs. Extremity negative for any edema. Neuro: Lethargic. Medications and IVs Current Medications Medications (Trade) Dose Ordered Sig/Mansi Route Start Time Stop Time Status Last Admin (Tylenol) 650 mg Q6H PRN PO 01/10/17 17:00 (Proair Hfa Inh) 2 puff Q6H PRN INH 01/10/17 17:00 (Lipitor) 80 mg HS PO 01/10/17 21:00 01/16/17 21:53 (Nitrostat Sl) 0.4 mg Q3H PRN SL 01/10/17 17:00 (Ecotrin Ec) 81 mg DAILY PO 01/10/17 17:00 01/18/17 08:52 (NovoLOG SUPPLEMENTAL SCALE) 1 Q4H SQ 01/10/17 17:00 01/20/17 10:30 (NS Flush) 2 ml BID IV FLUSH 01/10/17 21:00 01/20/17 20:55 Miscellaneous Information 1 Q361D XX 01/10/17 17:15 (Chlorhexidine 2% Cloth) Taper DAILY@04 TOP 01/11/17 04:00 01/07/18 03:59 01/17/17 01:29 (Chlorhexidine 2% Cloth) 3 pack UNSCH PRN TOP 01/10/17 17:15 (Afia-Colace) 1 tab BID PO 01/10/17 21:00 01/18/17 08:51 (Milk Of Magnesia Liq) 30 ml Q12H PRN PO 01/10/17 17:15 (Senokot) 17.2 mg Q12H PRN PO 01/10/17 17:15 (Dulcolax Supp) 10 mg DAILY PRN RECTAL 01/10/17 17:15 (Lactulose Liq) 30 ml DAILY PRN PO 01/10/17 17:15 Sodium Chloride 1,000 ml @ 0 mls/hr Q0M PRN OTHER 01/10/17 17:47 01/10/17 22:05 (Heparin Inj) 8,000 units UNSCH PRN IV FLUSH 01/10/17 18:00 Sodium Chloride 1,000 ml @ 200 mls/hr Q5H PRN IV 01/10/17 17:47 Sodium Chloride 1,000 ml @ 0 mls/hr Q0M PRN OTHER 01/10/17 17:47 (Mannitol Inj) 12.5 gm UNSCH PRN IV 01/10/17 18:00 Albumin Human 100 ml @ 60 mls/hr UNSCH PRN IV 01/10/17 18:00 (NS Flush) 5 ml UNSCH PRN IV FLUSH 01/10/17 18:00 (Heparin Inj) UNSCH PRN .XX 01/10/17 18:00 (Gentamicin (Dialysis) Inj) 20 mg UNSCH PRN OTHER 01/10/17 18:00 01/10/17 22:03 (Zofran Inj) 4 mg UNSCH PRN IV PUSH 01/10/17 18:00 01/18/17 08:51 (Tylenol) 650 mg UNSCH PRN PO 01/10/17 18:00 (Benadryl) 25 mg UNSCH PRN PO 01/10/17 18:00 (Nitrostat Sl) 0.4 mg UNSCH PRN SL 01/10/17 18:00 (Catapres) 0.1 mg UNSCH PRN PO 01/10/17 18:00 01/15/17 02:07 (Gelfoam 12 Mm/7 Mm Top) 1 foam UNSCH PRN TOP 01/10/17 18:00 (D50w (Vial) Inj) 50 ml UNSCH PRN IV PUSH 01/10/17 22:30 01/10/17 18:05 (Glucagon Inj) 1 mg UNSCH PRN OTHER 01/10/17 22:30 Dexmedetomidine HCl 200 mcg/ Sodium Chloride 52 ml @ 5.46 mls/hr TITRATE PRN IV 01/11/17 00:00 01/12/17 14:53 (Haldol Inj) 5 mg Q4H PRN IV 01/12/17 17:00 01/20/17 10:02 Sodium Chloride 38.5 meq/Sterile Water 1,009.625 ml @ 84 mls/hr Q12H2M IV 01/13/17 15:00 01/20/17 20:56 (Reglan Inj) 5 mg Q8H IV PUSH 01/15/17 10:00 01/20/17 17:26 (Apresoline Inj) 10 mg Q4H PRN IV PUSH 01/15/17 10:00 Potassium Chloride 100 ml @ 50 mls/hr Q2H IV 01/15/17 10:00 Future Hold 01/16/17 06:11 (Heparin Inj) 5,000 units UNSCH PRN IV PUSH 01/15/17 17:15 (Heparin Inj) 2,500 units UNSCH PRN IV PUSH 01/15/17 17:15 01/16/17 06:17 (Catapres-Tts 0.3 Mg Patch.7d) 1 patch Q7D T-DERMAL 01/16/17 10:00 01/16/17 14:14 Miscellaneous Information 1 Q7D T-DERMAL 01/16/17 10:00 01/16/17 10:00 (Mucinex Er) 600 mg BID PO 01/16/17 21:00 01/18/17 08:51 (Oscal) 500 mg TID PO 01/17/17 13:00 01/19/17 18:42 (K-Phos) 500 mg Q12HR PO 01/17/17 14:00 01/19/17 08:15 (SEROquel) 25 mg BID PO 01/17/17 21:00 01/20/17 20:54 (Lopressor) 50 mg Q8HR PO 01/19/17 14:00 01/20/17 20:54 (Cardizem Cd) 300 mg DAILY PO 01/20/17 09:00 01/20/17 09:00 (Trandate Inj) 10 mg Q4H PRN IV PUSH 01/20/17 08:30 01/20/17 17:27 A/P Assessment and Plan 1. Acute Metabolic Encephalopathy/Agitated Delirium, History of Previous CVA with left hemiparesis, at this time Lethargic due to Haldol and basal pathology. 2. Severe combined Metabolic and respiratory acidosis resolved Past Tobacco dependence continue Bronchodilator, Mucolytic and incentive spirometry 3. Atrial Flutter/Fibrillation with RVR/Elevated Troponin, History of CAD and Hypertension, Cardiology following, recommended Metoprolol Warfarin, equivocal Troponin elevation, recommended by Cardiology to stop Warfarin due to non compliance. 4. Acute kidney Injury on chronic kidney disease, slowly improving, Nephrology specialist following. 5. DM II/Dyslipidemia continue sliding scale. 6. Electrolyte derangement Slowly improving 7. Elevated Troponin but no angina like symptoms, normal left ventricular function by Echo recent non ischemic nuclear stress. 8. Delirium due to another medical condition, due to lack of cooperation inability to express a rational choice and inability to verbalize reason of hospitalization and nature of her medical illnesses the patient doesn't have decision making capacity to refuse medications of to leave AMA. 9. Fever asked for CXR, Lactic Acid, CBC, UA. blood cultures,. Discussed with nurse Mr. Tony. PROPH: - Bilateral lower extremity SCDs. Heparin IV DCd, protonix 40 mg IV q12 Discharge Planning Not yet ready for discharge continue Critical care management by now. Dane Gleason MD Jan 21, 2017 08:52
[2017-01-21] MEDS: guaiFENesin E.R. 600 MG TAB PO SCH ×2 (09:04→21:00)
[2017-01-21] MEDS: CALCIUM CARBONATE 1.25 GM (CA 500 MG) TAB PO SCH ×3 (09:04→17:48)
[2017-01-21] MEDS: DILTIAZEM-CD 300 MG CAP ER PO SCH (09:04)
[2017-01-21] MEDS: DOCUSATE SODIUM 50 MG/SENNA 8.6 MG TAB PO SCH ×2 (09:04→21:00)
[2017-01-21] MEDS: SODIUM CHLORIDE 0.9% FLUSH 10 ML FLUSH IV FLUSH SCH ×2 (09:04→21:00)
[2017-01-21] MEDS: ASPIRIN EC 81 MG TABEC PO SCH (09:04)
[2017-01-21] MEDS: QUEtiapine FUMARATE 25 MG TAB PO SCH ×2 (09:12→21:00)
[2017-01-21] MEDS: POTASSIUM PHOSPHATE MONOBASIC 500 MG TAB PO SCH ×2 (09:12→21:00)
--- NOTE | 2017-01-21 09:39 | PD.CARD.PN ---
Subjective Subjective Remarks Minimally conversant. Denies CP, dizziness, dyspnea. Objective Medications Item Value Date Time Diltiazem HCl 300 mg 01/20/17 0900 (Cardizem Cd) DAILY/PO 01/21/17 0904 Labetalol HCl 10 mg 01/20/17 0830 (Trandate Inj) Q4H PRN/IV PUSH 01/20/17 1727 Metoprolol 50 mg 01/19/17 1400 Tartrate Q8HR/PO (Lopressor) Potassium 500 mg 01/17/17 1400 Phosphate Q12HR/PO 01/21/17 0912 (K-Phos) Clonidine 1 patch 01/16/17 1000 (Catapres-Tts Q7D/T-DERMAL 01/16/17 1414 0.3 Mg Patch.7d) Atorvastatin 80 mg 01/10/17 2100 Calcium HS/PO (Lipitor) Clonidine 0.1 mg 01/10/17 1800 (Catapres) UNSCH PRN/PO 01/15/17 0207 Aspirin 81 mg 01/10/17 1700 (Ecotrin Ec) DAILY/PO 01/21/17 0904 Current Medications Medications (Trade) Dose Ordered Sig/Mansi Route Start Time Stop Time Status Last Admin (Tylenol) 650 mg Q6H PRN PO 01/10/17 17:00 (Proair Hfa Inh) 2 puff Q6H PRN INH 01/10/17 17:00 (Lipitor) 80 mg HS PO 01/10/17 21:00 01/16/17 21:53 (Nitrostat Sl) 0.4 mg Q3H PRN SL 01/10/17 17:00 (Ecotrin Ec) 81 mg DAILY PO 01/10/17 17:00 01/21/17 09:04 (NovoLOG SUPPLEMENTAL SCALE) 1 Q4H SQ 01/10/17 17:00 01/20/17 10:30 (NS Flush) 2 ml BID IV FLUSH 01/10/17 21:00 01/21/17 09:04 Miscellaneous Information 1 Q361D XX 01/10/17 17:15 (Chlorhexidine 2% Cloth) Taper DAILY@04 TOP 01/11/17 04:00 01/07/18 03:59 01/17/17 01:29 (Chlorhexidine 2% Cloth) 3 pack UNSCH PRN TOP 01/10/17 17:15 (Afia-Colace) 1 tab BID PO 01/10/17 21:00 01/21/17 09:04 (Milk Of Magnesia Liq) 30 ml Q12H PRN PO 01/10/17 17:15 (Senokot) 17.2 mg Q12H PRN PO 01/10/17 17:15 (Dulcolax Supp) 10 mg DAILY PRN RECTAL 01/10/17 17:15 (Lactulose Liq) 30 ml DAILY PRN PO 01/10/17 17:15 Sodium Chloride 1,000 ml @ 0 mls/hr Q0M PRN OTHER 01/10/17 17:47 01/10/17 22:05 (Heparin Inj) 8,000 units UNSCH PRN IV FLUSH 01/10/17 18:00 Sodium Chloride 1,000 ml @ 200 mls/hr Q5H PRN IV 01/10/17 17:47 Sodium Chloride 1,000 ml @ 0 mls/hr Q0M PRN OTHER 01/10/17 17:47 (Mannitol Inj) 12.5 gm UNSCH PRN IV 01/10/17 18:00 Albumin Human 100 ml @ 60 mls/hr UNSCH PRN IV 01/10/17 18:00 (NS Flush) 5 ml UNSCH PRN IV FLUSH 01/10/17 18:00 (Heparin Inj) UNSCH PRN .XX 01/10/17 18:00 (Gentamicin (Dialysis) Inj) 20 mg UNSCH PRN OTHER 01/10/17 18:00 01/10/17 22:03 (Zofran Inj) 4 mg UNSCH PRN IV PUSH 01/10/17 18:00 01/18/17 08:51 (Tylenol) 650 mg UNSCH PRN PO 01/10/17 18:00 (Benadryl) 25 mg UNSCH PRN PO 01/10/17 18:00 (Nitrostat Sl) 0.4 mg UNSCH PRN SL 01/10/17 18:00 (Catapres) 0.1 mg UNSCH PRN PO 01/10/17 18:00 01/15/17 02:07 (Gelfoam 12 Mm/7 Mm Top) 1 foam UNSCH PRN TOP 01/10/17 18:00 (D50w (Vial) Inj) 50 ml UNSCH PRN IV PUSH 01/10/17 22:30 01/10/17 18:05 (Glucagon Inj) 1 mg UNSCH PRN OTHER 01/10/17 22:30 Dexmedetomidine HCl 200 mcg/ Sodium Chloride 52 ml @ 5.46 mls/hr TITRATE PRN IV 01/11/17 00:00 01/12/17 14:53 (Haldol Inj) 5 mg Q4H PRN IV 01/12/17 17:00 01/20/17 10:02 Sodium Chloride 38.5 meq/Sterile Water 1,009.625 ml @ 84 mls/hr Q12H2M IV 01/13/17 15:00 01/20/17 20:56 (Reglan Inj) 5 mg Q8H IV PUSH 01/15/17 10:00 01/21/17 09:12 (Apresoline Inj) 10 mg Q4H PRN IV PUSH 01/15/17 10:00 Potassium Chloride 100 ml @ 50 mls/hr Q2H IV 01/15/17 10:00 Future Hold 01/16/17 06:11 (Heparin Inj) 5,000 units UNSCH PRN IV PUSH 01/15/17 17:15 (Heparin Inj) 2,500 units UNSCH PRN IV PUSH 01/15/17 17:15 01/16/17 06:17 (Catapres-Tts 0.3 Mg Patch.7d) 1 patch Q7D T-DERMAL 01/16/17 10:00 01/16/17 14:14 Miscellaneous Information 1 Q7D T-DERMAL 01/16/17 10:00 01/16/17 10:00 (Mucinex Er) 600 mg BID PO 01/16/17 21:00 01/21/17 09:04 (Oscal) 500 mg TID PO 01/17/17 13:00 01/21/17 09:04 (K-Phos) 500 mg Q12HR PO 01/17/17 14:00 01/21/17 09:12 (SEROquel) 25 mg BID PO 01/17/17 21:00 01/21/17 09:12 (Lopressor) 50 mg Q8HR PO 01/19/17 14:00 01/20/17 20:54 (Cardizem Cd) 300 mg DAILY PO 01/20/17 09:00 01/21/17 09:04 (Trandate Inj) 10 mg Q4H PRN IV PUSH 01/20/17 08:30 01/20/17 17:27 Vital Signs / I&O Vital Signs Date Time Temp Pulse Resp B/P (MAP) Pulse Ox O2 Delivery O2 Flow Rate FiO2 01/21/17 04:00 98.2 96 24 116/62 (80) 96 01/21/17 00:00 98.3 87 30 105/63 (77) 96 01/20/17 20:00 98.5 109 29 118/70 (86) 96 01/20/17 18:00 99 01/20/17 16:00 113 01/20/17 16:00 98.4 134 24 116/81 (93) 95 01/20/17 14:00 102 01/20/17 12:00 114 01/20/17 12:00 98.2 108 22 129/72 (91) 97 01/20/17 10:00 103 I/O 01/20/17 01/20/17 01/20/17 01/21/17 01/21/17 01/21/17 07:00 15:00 23:00 07:00 15:00 23:00 Intake Total 1850 ml 2735 ml 1045 ml Output Total 975 ml 1800 ml 825 ml Balance 875 ml 935 ml 220 ml Intake Oral 480 ml 800 ml 240 ml IV Total 1370 ml 1935 ml 805 ml Output Urine Total 975 ml 1800 ml 825 ml # Bowel Movements 0 1 0 Physical Exam GENERAL: Well developed, well nourished. No acute distress. HEENT: Jugular venous pressure is normal. CHEST: Lungs clear to auscultation anteriorly. CARDIAC: Irregular rhythm without S3, S4, or murmur. ABDOMEN: Soft, nontender, no hepatosplenomegaly. Bowel sounds present. EXTREMITIES: No clubbing, cyanosis, or edema. Laboratory Laboratory Tests Test 01/20/17 13:00 Activated Partial Thromboplast Time 71.8 SEC Assessment and Plan Problem List: (1) Atrial flutter ICD Codes: I48.92 - Unspecified atrial flutter Status: Acute Plan: Monitoring now more c/w atrial fibrillation. HR's fluctuating, normal this morning at rest. Left ventricular function by echo normal. With his history of CVA, hypertension, diabetes, his thromboembolic risk is at least moderately elevated. Patient still refusing some medications. REC in light of his medical noncompliance, and likelihood he will not be compliant with PT/INR checks as an outpatient, recommend no warfarin continue daily aspirin will f/u as needed; the patient can f/u with Dr. Vasquez, who originally evaluated patient on admission, after discharge as needed (2) Elevated troponin ICD Codes: R74.8 - Abnormal levels of other serum enzymes Status: Acute Plan: Stable. No angina like symptoms recently. Normal LV function by echo, recent non-ischemic nuclear stress; likely due to his renal failure, anemia, and metabolic derangements. Rec no additional cardiac w/u. (3) HTN (hypertension) ICD Codes: I10 - Essential (primary) hypertension Status: Chronic Plan: Fluctuating BP's, mostly normotensive. Continue same. Code Status No Code Discussed Condition With patient Problem Qualifiers (1) Atrial flutter: Qualified Codes: I48.3 - Typical atrial flutter (2) HTN (hypertension): Qualified Codes: I10 - Essential (primary) hypertension Nikolay Oliveros MD Jan 21, 2017 09:39
[2017-01-21] MEDS: ACETAMINOPHEN 325 MG TAB PO PRN ×2 (10:01→18:11)
--- NOTE | 2017-01-21 13:39 | HHI.HCPN ---
Reason for visit a. To assist with evaluation and management of symptoms including: pain, weakness. b. To assist medical decision maker(s) with: better understanding of current medical conditions; weighing benefits/burdens of medical treatment options; making medical treatment decisions. . Subjective/Interval History Patient seen and examined in ICU. He is awake and alert, more talkative today, though answers with most questions with a few words. He reports pain "all over. " He is unable to further quantify or qualify his pain. He is eating bites of his lunch. He says he is not hungry. He denies shortness of breath. Afebrile. Tachycardic, A. Fib on telemetry. No new labs or imaging. . Family/friend interactions Spoke with brotherYareli / HCP on 01/20/17 he desires continued aggressive care including dialysis and forced medications if necessary. . Advance Directives Living Will: Never completed Health Care Surrogate: Never completed Durable Power of Treating Plant Supervisor: Never completed Advance Directive Specifics Health Care Surrogate(s): Patient is incapacitated to make his own health care decisions, uncertain if he will regain capacity. Single. No children. Mother in a senior living with underlying schizophrenia, not capacitated herself. Father . 2 sisters and one brother. 2 sisters, Lizeth and Alejandrina do not wish to serve as healthcare proxy decision makers. Therefore, healthcare proxy decision-making will fall to the patient's brother,Isabela Andrews, he is willing to serve in this role. . Significant change in goals: NO CODE - [place] DNR signed on chart. Spoke with brotherYareli / HCP on 01/20/17 he desires continued aggressive care including dialysis and forced medications if necessary. . Objective Vital Signs Date Time Temp Pulse Resp B/P (MAP) Pulse Ox O2 Delivery O2 Flow Rate FiO2 01/21/17 12:55 20 01/21/17 04:00 98.2 96 24 116/62 (80) 96 01/21/17 00:00 98.3 87 30 105/63 (77) 96 01/20/17 20:00 98.5 109 29 118/70 (86) 96 01/20/17 18:00 99 01/20/17 16:00 113 01/20/17 16:00 98.4 134 24 116/81 (93) 95 01/20/17 14:00 102 Intake & Output 01/21/17 01/21/17 07:00 19:00 Intake Total 2045 ml Output Total 825 ml Balance 1220 ml Intake Oral 240 ml IV Total 1805 ml Output Urine Total 825 ml # Bowel Movements 0 Physical Exam CONSTITUTIONAL/GENERAL: This is an adequately nourished patient, in no apparent distress. TUBES/LINES/DRAINS: PIV, [place]. SKIN: Skin temperature appropriate. Not diaphoretic. EYES: ? scleral icterus. CARDIOVASCULAR: Irregular, atrial fibrillation on telemetry. RESPIRATORY/CHEST: Symmetric, unlabored respirations. Clear to auscultation. Breath sounds equal bilaterally. No wheezes, rales, or rhonchi. GASTROINTESTINAL: Abdomen soft, non-tender, nondistended. No guarding. Bowel sounds present. GENITOURINARY: Without palpable bladder distension. Catheter in place. 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 Extremities without clubbing, cyanosis, or edema. No mottling or clubbing. NEUROLOGICAL: awake and alert. PSYCHIATRIC: calm, speaking more today. . Diagnostic Tests Laboratory Laboratory Tests Test 01/19/17 07:01 01/19/17 12:20 01/20/17 06:04 01/20/17 06:08 White Blood Count 12.8 TH/MM3 (4.0-11.0) 14.2 TH/MM3 (4.0-11.0) Red Blood Count 3.70 MIL/MM3 (4.50-5.90) 3.45 MIL/MM3 (4.50-5.90) Hemoglobin 10.6 GM/DL (13.0-17.0) 10.1 GM/DL (13.0-17.0) Hematocrit 32.6 % (39.0-51.0) 30.0 % (39.0-51.0) Mean Corpuscular Volume 88.1 FL (80.0-100.0) 87.1 FL (80.0-100.0) Mean Corpuscular Hemoglobin 28.7 PG (27.0-34.0) 29.2 PG (27.0-34.0) Mean Corpuscular Hemoglobin Concent 32.6 % (32.0-36.0) 33.5 % (32.0-36.0) Red Cell Distribution Width 14.5 % (11.6-17.2) 14.7 % (11.6-17.2) Platelet Count 109 TH/MM3 (150-450) 115 TH/MM3 (150-450) Mean Platelet Volume 10.3 FL (7.0-11.0) 10.6 FL (7.0-11.0) Activated Partial Thromboplast Time 51.6 SEC (24.3-30.1) 52.0 SEC (24.3-30.1) 57.8 SEC (24.3-30.1) Blood Urea Nitrogen 33 MG/DL (7-18) 34 MG/DL (7-18) Creatinine 2.25 MG/DL (0.60-1.30) 2.31 MG/DL (0.60-1.30) Random Glucose 175 MG/DL (74-106) 193 MG/DL (74-106) Calcium Level 7.5 MG/DL (8.5-10.1) 7.3 MG/DL (8.5-10.1) Sodium Level 136 MEQ/L (136-145) 135 MEQ/L (136-145) Potassium Level 3.5 MEQ/L (3.5-5.1) 3.3 MEQ/L (3.5-5.1) Chloride Level 102 MEQ/L (98-107) 101 MEQ/L (98-107) Carbon Dioxide Level 24.1 MEQ/L (21.0-32.0) 25.6 MEQ/L (21.0-32.0) Anion Gap 10 MEQ/L (5-15) 8 MEQ/L (5-15) Estimat Glomerular Filtration Rate 37 ML/MIN (>89) 36 ML/MIN (>89) Magnesium Level 1.6 MG/DL (1.5-2.5) 1.4 MG/DL (1.5-2.5) Total Protein 6.5 GM/DL (6.4-8.2) Protein Corrected Calcium 7.6 MG/DL (8.5-10.1) Prothrombin Time 19.3 SEC (9.8-11.6) Prothromb Time International Ratio 1.7 RATIO Test 01/20/17 13:00 Activated Partial Thromboplast Time 71.8 SEC (24.3-30.1) Result Diagram: 01/20/1708 01/20/1704 Microbiology Microbiology Date/Time Source Procedure Growth Status 01/14/17 11:52 Blood Peripheral Aerobic Blood Culture - Final NO GROWTH IN 5 DAYS Complete 01/14/17 11:52 Blood Peripheral Anaerobic Blood Culture - Final NO GROWTH IN 5 DAYS Complete Imaging Last Impressions Abdomen X-Ray 01/18/17 0000 Signed Impressions: Service Date/Time: Wednesday, January 18, 2017 08:02 - CONCLUSION: No acute disease. Edward Mata MD Chest X-Ray 01/14/17 1114 Signed Impressions: Service Date/Time: Saturday, January 14, 2017 11:54 - CONCLUSION: 1. Compensated cardiomegaly. 2. Minimal bibasilar airspace disease, likely atelectasis. 3. No significant interval change. Johnathon Ramon MD Head CT 01/10/17 1257 Signed Impressions: Service Date/Time: Tuesday, January 10, 2017 13:32 - CONCLUSION: No acute disease. Jermaine Malone Jr., MD Renal Ultrasound 01/10/17 0000 Signed Impressions: Service Date/Time: Tuesday, January 10, 2017 17:01 - CONCLUSION: Normal examination. Jermaine Malone Jr., MD Assessment and Plan Disease Oriented Problem List: (1) Leukocytosis (2) Malnutrition (3) HTN (hypertension) (4) Atrial flutter (5) Acute metabolic encephalopathy (6) Acute on chronic kidney failure (7) Elevated troponin (8) Diabetes Symptom Scale: (1) Pain 0-10 Scale: Unable to quantify Comment: Patient not answering most questions. (2) Weakness 0-10 Scale: Unable to quantify Comment: Secondary to prior CVA, left hemiparesis Pertinent Non-Medical Issues Psychosocial: Single. No children. Disabled. Brother, Isabela Andrews is serving as healthcare proxy decision maker per [place] statutes. Spiritual: Buddhism caroline. Legal:Patient deemed incapacitated per psychiatry to make his own health care decisions, uncertain if he will regain capacity. Single. No children. Mother in a senior living with underlying schizophrenia, not capacitated herself. Father . 2 sisters and one brother. 2 sisters, Lizeth and Alejandrina do not wish to serve as healthcare proxy decision makers. Therefore, healthcare proxy decision-making will fall to the patient's brother,Isabela Andrews, he is willing to serve in this role. Ethical issues impacting care: no known concerns at this time. . Important Contacts * Isabela Andrews, brother/HCP: [phone] * Christy Colon, ex sister in law (D[place]ton ex- - who trusts): [phone] * Alta Andrews, sister opted out of HCP decision-making and [phone] * Alejandrina sifuentes, sister, opted out of HCP decision [phone] * Kylee Kendall, mother, incapacitated, in SNF . Prognosis Mr. Andrews is a 56-year-old male with long history of noncompliance, refusing medication, questionable underlying psychiatric disease, admitted with acute on chronic renal failure, coronary artery disease, atrial fib/flutter refusing medications. Patient remains high risk for repeat hospitalization, further decline or even . Uncertain if patient has underlying psychiatric disease if this was treated would he be more readily open to taking medications. Will attempt to discuss with psychiatry. Family feels patient has had psychiatric issues since he was a child that were never diagnosed. . Code Status: No Code Plan * Decision Maker: Patient deemed incapacitated per psychiatry to make his own health care decisions, uncertain if he will regain capacity. Single. No children. Mother in a senior living with underlying schizophrenia, not capacitated herself. Father . 2 sisters and one brother. 2 sisters, Lizeth and Alejandrina do not wish to serve as healthcare proxy decision makers. Therefore, healthcare proxy decision-making will fall to the patient's brother, Yareli Andrews, he is willing to serve in this role. * NO CODE - [place] DNR order signed by Yareli (HCP) and placed on chart. * Palliative care spoke with BrotherYareli on 01/20/17 he desires continued aggressive care, including dialysis and forced medications if necessary. * SYMPTOMS: Pain: denies pain during my visit. Weakness: debility due to prior stroke. * Palliative care will continue to follow throughout hospital course to assist with symptom management and clarification of goals as needed. . Attestation To help prompt me to consider important information that might be impacting today's encounter and assessment, information from prior notes written by myself or my colleagues may have been "brought forward" into today's note. My signature on this note, however, is an attestation that I personally performed the exam, history, and/or decision-making noted today, and, unless otherwise indicated, the interactions with patient, family, and staff as well as the review of records all occurred today. I also attest that the listed assessment and stated plan reflect my best clinical judgment today based on the combination of historical information, prior notes, and today's exam/ interactions. When time spent is documented, it refers only to time spent today by the signer, or if indicated, combined time spent today by collaborating physician/nurse practitioner. Dariana Stephen Jan 21, 2017 13:39
[2017-01-21 14:07] LABS: APTT (PATIENT) 41.8 SEC (24.3-30.1)
[2017-01-21 14:11] LABS: BICARBONATE 22.4 MEQ/L (21.0-32.0); MAGNESIUM 1.7 MG/DL (1.5-2.5)
[2017-01-21 14:12] LABS: POTASSIUM 4.1 MEQ/L (3.5-5.1)
--- NOTE | 2017-01-21 14:33 | HHI.NPPN ---
Subjective History of Present Illness 56-year-old male with past medical history of chronic kidney disease, diabetes mellitus, history of cerebrovascular accident with hemiparesis, ischemic heart disease, hypertension, atrial fibrillation who came to the hospital with generalized weakness and dizziness. I was called to see the patient because of very high BUN and creatinine, metabolic acidosis and hyperkalemia. The patient has known history of chronic kidney disease and his baseline creatinine seems to me in the range of 1.6 to 2.2. Additional Remarks Patient is not cooperating not eating well Review of Systems General Constitutional: Fatigue Cardiovascular Cardiac: RODRÍGUEZ Objective Data Data Vital Signs Date Time Temp Pulse Resp B/P (MAP) Pulse Ox O2 Delivery O2 Flow Rate FiO2 01/21/17 12:55 20 01/21/17 04:00 98.2 96 24 116/62 (80) 96 01/21/17 00:00 98.3 87 30 105/63 (77) 96 01/20/17 20:00 98.5 109 29 118/70 (86) 96 01/20/17 18:00 99 01/20/17 16:00 113 01/20/17 16:00 98.4 134 24 116/81 (93) 95 -: 01/20/17 0608 01/21/17 1250 Physical Exam General Appearance: No Acute Distress, Comfortable, Anxious Throat Throat Exam: Oral Mucosa Wallace & Moist Pulmonary Resp Exam: Breath Sounds Equal, No Distress, Rhonchi, Decreased Bases, Diminished Breath Sounds Cardiology CV Exam: Arrhythmia Gastrointestinal/Abdomen GI Exam: Soft, Non-Tender, Bowel Sounds Present Extremeties Extremities Exam: Trace Edema Neurologic Neuro Exam: Alert, Awake Assessment/Plan Assessment Summary: ABNER/Acute Renal Failure, CKD Stage III Electrolyte Assessment: Hyperkalemia, Hypocalcemia, Metabolic Acidosis Problem List: (1) History of CVA (cerebrovascular accident) ICD Codes: Z86.73 - Personal history of transient ischemic attack (TIA), and cerebral infarction without residual deficits Status: Chronic (2) HTN (hypertension) ICD Codes: I10 - Essential (primary) hypertension Status: Chronic (3) Diabetes ICD Codes: E11.9 - Type 2 diabetes mellitus without complications Status: Acute (4) Metabolic acidemia ICD Codes: E87.2 - Acidosis (5) Hyperkalemia ICD Codes: E87.5 - Hyperkalemia Status: Acute (6) Acute renal failure ICD Codes: N17.9 - Acute kidney failure, unspecified Status: Acute Plan Patient has chronic kidney disease and develop ABNER. Also had metabolic acidosis and Hyperkalemia. Patient has HD 1 session then ARF resolved ATN resolving Cr higher not eating well refusing medications cr 2.5 as not taking enough liquids not cooperating Magnesium and K in range non compliant Problem Qualifiers (1) HTN (hypertension): Qualified Codes: I10 - Essential (primary) hypertension (2) Diabetes: (3) Acute renal failure: Qualified Codes: N17.9 - Acute kidney failure, unspecified Parth Ruiz MD Jan 21, 2017 14:33
[2017-01-21 14:34] LABS: CALCIUM-PROTEIN CORRECTED 7.2 MG/DL (8.5-10.1)
[2017-01-21] MEDS: SODIUM CHLORIDE 23.4% INJ 38.5 MEQ in WATER STERILE FOR INJ 1,000 ML IV SCH (15:32)
[2017-01-21] MEDS ORDERED: MAGNESIUM SULFATE 1 GM PREMIX 100 ML IV ONE (17:15)
[2017-01-21] MEDS: ATORVASTATIN 80 MG TAB PO SCH (21:00)
--- NOTE | 2017-01-21 22:52 | RADRPT ---
EXAM DATE/TIME: 01/21/2017 22:42 [facility] COMPARISON: CHEST SINGLE AP, January 14, 2017, 11:54. INDICATIONS : Fever. MEDICAL HISTORY : Stroke. Hypertension. Myocardial infarction SURGICAL HISTORY : None. ENCOUNTER: Subsequent ACUITY: 2 weeks PAIN SCORE: 0/10 LOCATION: Bilateral chest FINDINGS: A single AP portable semierect view the chest was obtained and demonstrates new hazy perihilar and bi basilar opacities. The left costophrenic angle appears blunted and the left hemidiaphragm is obscured . The heart size is moderately enlarged. The bony thorax remains intact with overlying electrocardiog federico leads. CONCLUSION: New hazy opacity in both lungs with concern for ovarian edema and congestive heart failure. Jose Espinal MD on January 21, 2017 at 22:50 Board Certified Radiologist. This report was verified electronically.
[2017-01-22] VITALS (11 sets, daily range): BP systolic 123–163; BP diastolic 68–80; PULSE 97–120; RESP 20–53; TEMP 98.5–102.6; O2SAT 92–96
[2017-01-22 00:37] LABS: AUTOMATED NEUTROPHIL # 15.7 TH/MM3 (1.8-7.7); BASOPHIL # 0.1 TH/MM3 (0-0.2); BASOPHIL % 0.6 % (0.0-2.0); EOSINOPHIL # 0.1 TH/MM3 (0-0.4); EOSINOPHIL % 0.3 % (0.0-4.0); HEMATOCRIT 31.3 % (39.0-51.0); HEMO FLAGS DIFF FINAL; LYMPH % 5.4 % (9.0-44.0); MEAN CELL VOLUME 86.2 FL (80.0-100.0); MEAN CORPUSCULAR HEMOGLOBIN 28.7 PG (27.0-34.0); MEAN CORPUSCULAR HGB CONC 33.3 % (32.0-36.0); MONO % 9.8 % (0.0-8.0); NEUT % 83.9 % (16.0-70.0); PLATELET COUNT 139 TH/MM3 (150-450); RED BLOOD COUNT 3.63 MIL/MM3 (4.50-5.90); RED CELL DISTRIBUTION WIDTH 14.6 % (11.6-17.2); WHITE BLOOD COUNT 18.8 TH/MM3 (4.0-11.0)
[2017-01-22] MEDS: METOCLOPRAMIDE HCL 10 MG/2 ML VIAL IV PUSH SCH ×3 (02:00→18:00)
[2017-01-22] MEDS: CHLORHEXIDINE GLUCONATE 2 % 1 PACK (2 CLOTHS) TOP SCH (04:00)
[2017-01-22] MEDS: INSULIN ASPART SUPPLEMENTAL SCALE SQ SCH ×5 (05:00→21:00)
[2017-01-22] MEDS: METOPROLOL TARTRATE 50 MG TAB PO SCH ×3 (06:00→21:06)
[2017-01-22 06:58] LABS: HEMATOCRIT 30.9 % (39.0-51.0); MEAN CELL VOLUME 86.7 FL (80.0-100.0); MEAN CORPUSCULAR HGB CONC 33.4 % (32.0-36.0); PLATELET COUNT 161 TH/MM3 (150-450); RED BLOOD COUNT 3.56 MIL/MM3 (4.50-5.90); RED CELL DISTRIBUTION WIDTH 14.8 % (11.6-17.2); REVIEW FLAG FINAL; WHITE BLOOD COUNT 17.3 TH/MM3 (4.0-11.0)
[2017-01-22 07:22] LABS: BICARBONATE 22.8 MEQ/L (21.0-32.0); POTASSIUM 4.7 MEQ/L (3.5-5.1)
[2017-01-22] MEDS: SODIUM CHLORIDE 0.9% FLUSH 10 ML FLUSH IV FLUSH SCH ×2 (09:00→21:07)
[2017-01-22] MEDS: CEFEPIME INJ 1,000 MG in SODIUM CHLORIDE 0.9% INJ 100 ML IV SCH ×2 (09:00→22:46)
[2017-01-22] MEDS: DOCUSATE SODIUM 50 MG/SENNA 8.6 MG TAB PO SCH ×2 (09:11→21:07)
[2017-01-22] MEDS: POTASSIUM PHOSPHATE MONOBASIC 500 MG TAB PO SCH ×2 (09:12→21:07)
[2017-01-22] MEDS: QUEtiapine FUMARATE 25 MG TAB PO SCH ×2 (09:12→21:07)
[2017-01-22] MEDS: DILTIAZEM-CD 300 MG CAP ER PO SCH (09:12)
[2017-01-22] MEDS: guaiFENesin E.R. 600 MG TAB PO SCH ×2 (09:12→21:00)
[2017-01-22] MEDS: ASPIRIN EC 81 MG TABEC PO SCH (09:12)
[2017-01-22] MEDS: CALCIUM CARBONATE 1.25 GM (CA 500 MG) TAB PO SCH ×3 (09:12→18:00)
[2017-01-22] MEDS: AZITHROMYCIN INJ 250 MG in SODIUM CHLOR 0.9% 250 ML INJ 250 ML IV SCH (09:23)
--- NOTE | 2017-01-22 12:34 | HHI.NPPN ---
Subjective History of Present Illness 56-year-old male with past medical history of chronic kidney disease, diabetes mellitus, history of cerebrovascular accident with hemiparesis, ischemic heart disease, hypertension, atrial fibrillation who came to the hospital with generalized weakness and dizziness. I was called to see the patient because of very high BUN and creatinine, metabolic acidosis and hyperkalemia. The patient has known history of chronic kidney disease and his baseline creatinine seems to me in the range of 1.6 to 2.2. Additional Remarks Patient is tired Review of Systems General Constitutional: Fatigue Cardiovascular Cardiac: RODRÍGUEZ Objective Data Data Vital Signs Date Time Temp Pulse Resp B/P (MAP) Pulse Ox O2 Delivery O2 Flow Rate FiO2 01/22/17 12:00 110 01/22/17 12:00 99.4 120 20 123/69 (87) 96 01/22/17 10:00 110 01/22/17 08:00 99.0 110 20 124/72 (89) 96 01/22/17 08:00 110 01/22/17 06:00 110 01/22/17 04:00 98.8 97 20 163/78 (106) 96 01/22/17 04:00 97 01/22/17 04:00 97 01/22/17 04:00 97 53 96 01/22/17 02:00 109 01/22/17 00:00 103 01/22/17 00:00 98.5 103 20 148/80 (102) 93 01/21/17 22:00 94 01/21/17 20:00 95 31 123/88 (100) 92 01/21/17 20:00 95 01/21/17 18:00 116 01/21/17 16:00 102.8 91 34 104/71 (82) 87 01/21/17 16:00 91 01/21/17 14:00 98 01/21/17 12:55 20 -: 01/22/17 0618 01/22/17 0618 Microbiology 01/22/17 Aerobic Blood Culture, Received Pending 01/22/17 Anaerobic Blood Culture, Received Pending 01/22/17 Aerobic Blood Culture, Received Pending 01/22/17 Anaerobic Blood Culture, Received Pending Physical Exam General Appearance: No Acute Distress, Comfortable, Anxious Throat Throat Exam: Oral Mucosa [place] & Moist Pulmonary Resp Exam: Breath Sounds Equal, No Distress, Rhonchi, Decreased Bases, Diminished Breath Sounds Cardiology CV Exam: Arrhythmia Gastrointestinal/Abdomen GI Exam: Soft, Non-Tender, Bowel Sounds Present Extremeties Extremities Exam: Trace Edema Neurologic Neuro Exam: Alert, Awake Assessment/Plan Assessment Summary: ABNER/Acute Renal Failure, CKD Stage III Electrolyte Assessment: Hyperkalemia, Hypocalcemia, Metabolic Acidosis Problem List: (1) History of CVA (cerebrovascular accident) ICD Codes: Z86.73 - Personal history of transient ischemic attack (TIA), and cerebral infarction without residual deficits Status: Chronic (2) HTN (hypertension) ICD Codes: I10 - Essential (primary) hypertension Status: Chronic (3) Diabetes ICD Codes: E11.9 - Type 2 diabetes mellitus without complications Status: Acute (4) Metabolic acidemia ICD Codes: E87.2 - Acidosis (5) Hyperkalemia ICD Codes: E87.5 - Hyperkalemia Status: Acute (6) Acute renal failure ICD Codes: N17.9 - Acute kidney failure, unspecified Status: Acute Plan Patient has chronic kidney disease and develop ABNER. Also had metabolic acidosis and Hyperkalemia. Patient has HD 1 session then ARF resolved ATN resolving 1/2 NS at 84 cc/hr Cr 2.3 A fib RVR cardiology following as not taking enough liquids not cooperating low range for po4 on supplements non compliant Problem Qualifiers (1) HTN (hypertension): Qualified Codes: I10 - Essential (primary) hypertension (2) Diabetes: (3) Acute renal failure: Qualified Codes: N17.9 - Acute kidney failure, unspecified Parth Ruiz MD Jan 22, 2017 12:34
[2017-01-22 12:50] LABS: APTT (PATIENT) 42.5 SEC (24.3-30.1)
--- NOTE | 2017-01-22 16:31 | HHI.PR ---
Subjective Remarks meeting specialist following, with diagnosis of Atrial Fibrillation, recommended to stop Warfarin due to Non compliance, has elevated Troponin but no angina like symptoms, normal left ventricular function by Echo recent non ischemic nuclear stress. Psychiatry specialist following with diagnosis of Delirium due to another medical condition, due to lack of cooperation inability to express a rational choice and inability to verbalize reason of hospitalization and nature of her medical illnesses the patient doesn't have decision making capacity to refuse medications of to leave AMA. 01/21: patient stable during the day, during the afternoon he started with fever for this reason was asked for CXR, blood cultures lactic acid, new CBC, UA and follow results. no nausea, vomit or diarrhea. 01/22: Seen in his bedroom with nurse Miss Cabello, no changes no nausea, vomit or diarrhea, the patient has not the drive to help for his Care I think related to Psychiatric Issues more than organic disease, will be organic if continue with this behavior. at this time somnolent but awakes and engage in conversation. Objective Vital Signs Date Time Temp Pulse Resp B/P (MAP) Pulse Ox O2 Delivery O2 Flow Rate FiO2 01/22/17 14:00 110 01/22/17 12:00 110 01/22/17 12:00 99.4 120 20 123/69 (87) 96 01/22/17 10:00 110 01/22/17 08:00 99.0 110 20 124/72 (89) 96 01/22/17 08:00 110 01/22/17 06:00 110 01/22/17 04:00 98.8 97 20 163/78 (106) 96 01/22/17 04:00 97 01/22/17 04:00 97 01/22/17 04:00 97 53 96 01/22/17 02:00 109 01/22/17 00:00 103 01/22/17 00:00 98.5 103 20 148/80 (102) 93 01/21/17 22:00 94 01/21/17 20:00 95 31 123/88 (100) 92 01/21/17 20:00 95 01/21/17 18:00 116 I/O 01/21/17 01/21/17 01/21/17 01/22/17 01/22/17 01/22/17 07:00 15:00 23:00 07:00 15:00 23:00 Intake Total 1045 ml 100 ml 1357 ml Output Total 825 ml 275 ml 1650 ml Balance 220 ml -175 ml -293 ml Intake Oral 240 ml 0 ml IV Total 805 ml 100 ml 1357 ml Output Urine Total 825 ml 275 ml 1650 ml # Voids 2 # Bowel Movements 0 Result Diagram: 01/22/17 0618 01/22/17 0618 Imaging Last Impressions Chest X-Ray 01/21/17 0000 Signed Impressions: Service Date/Time: Saturday, January 21, 2017 22:42 - CONCLUSION: New hazy opacity in both lungs with concern for ovarian edema and congestive heart failure. Jose Espinal MD Abdomen X-Ray 01/18/17 0000 Signed Impressions: Service Date/Time: Wednesday, January 18, 2017 08:02 - CONCLUSION: No acute disease. Edward Mata MD Head CT 01/10/17 1257 Signed Impressions: Service Date/Time: Tuesday, January 10, 2017 13:32 - CONCLUSION: No acute disease. Jermaine Malone Jr., MD Renal Ultrasound 01/10/17 0000 Signed Impressions: Service Date/Time: Tuesday, January 10, 2017 17:01 - CONCLUSION: Normal examination. Jermaine Malone Jr., MD Procedures Hemodialysis. Other Results Laboratory Tests Test 01/10/17 16:57 01/10/17 18:00 01/10/17 20:17 01/11/17 03:40 Blood Gas Inspired Oxygen 21 % Nasal Screen MRSA (PCR) MRSA NOT DETECTED Hepatitis A IgM Antibody NEGATIVE Hepatitis B Surface Antigen NEGATIVE Hepatitis B Core IgM Antibody NEGATIVE Hepatitis C Antibody NEGATIVE Troponin I 2.31 NG/ML Test 01/11/17 17:38 01/15/17 07:20 01/17/17 05:10 01/20/17 06:08 Blood Gas Puncture Site LT RADIAL Blood Gas Patient Temperature 98.6 Blood Gas HCO3 19 mmol/L Blood Gas Base Excess -5.3 mmol/L Blood Gas Oxygen Saturation 94 % Arterial Blood pH 7.37 Arterial Blood Partial Pressure CO2 34 mmHg Arterial Blood Partial Pressure O2 86 mmHg Arterial Blood Oxygen Content 16.4 Vol % Arterial Blood Carboxyhemoglobin 1.7 % Arterial Blood Methemoglobin 1.2 % Blood Gas Hemoglobin 12.4 G/DL Oxygen Delivery Device NASAL CANNULA Blood Gas Liter Flow 1 L/M Urine Color YELLOW Urine Turbidity CLEAR Urine pH 6.5 Urine Specific Hickman 1.017 Urine Protein 100 mg/dL Urine Glucose (UA) NEG mg/dL Urine Ketones 10 mg/dL Urine Occult Blood SMALL Urine Nitrite NEG Urine Bilirubin NEG Urine Urobilinogen 2.0 MG/DL Urine Leukocyte Esterase NEG Urine RBC 10 /hpf Urine WBC 3 /hpf Urine Squamous Epithelial Cells <1 /hpf Urine Amorphous Sediment OCC Urine Bacteria RARE /hpf Urine Mucus FEW /lpf Microscopic Urinalysis Comment CULT NOT INDICATED Hemoglobin A1c 7.0 % Blood Urea Nitrogen 23 MG/DL Creatinine 2.11 MG/DL Random Glucose 190 MG/DL Total Protein 7.2 GM/DL Albumin 2.8 GM/DL Calcium Level 6.6 MG/DL Phosphorus Level 1.2 MG/DL Magnesium Level 0.9 MG/DL Alkaline Phosphatase 57 U/L Aspartate Amino Transf (AST/SGOT) 20 U/L Alanine Aminotransferase (ALT/SGPT) 19 U/L Total Bilirubin 1.9 MG/DL Sodium Level 137 MEQ/L Potassium Level 4.1 MEQ/L Chloride Level 104 MEQ/L Carbon Dioxide Level 26.1 MEQ/L Free Thyroxine 1.77 NG/DL Thyroid Stimulating Hormone 3rd Gen 1.190 uIU/ML Prothrombin Time 19.3 SEC Prothromb Time International Ratio 1.7 RATIO Test 01/21/17 12:50 01/22/17 00:15 01/22/17 06:18 01/22/17 11:45 Protein Corrected Calcium 7.2 MG/DL Blood Urea Nitrogen 36 MG/DL 36 MG/DL Creatinine 2.56 MG/DL 2.38 MG/DL Random Glucose 184 MG/DL 142 MG/DL Total Protein 6.9 GM/DL Calcium Level 7.1 MG/DL 7.6 MG/DL Magnesium Level 1.7 MG/DL Sodium Level 131 MEQ/L 133 MEQ/L Potassium Level 4.1 MEQ/L 4.7 MEQ/L Chloride Level 100 MEQ/L 102 MEQ/L Carbon Dioxide Level 22.4 MEQ/L 22.8 MEQ/L Neutrophils (%) (Auto) 83.9 % Lymphocytes (%) (Auto) 5.4 % Monocytes (%) (Auto) 9.8 % Eosinophils (%) (Auto) 0.3 % Basophils (%) (Auto) 0.6 % Neutrophils # (Auto) 15.7 TH/MM3 Lymphocytes # (Auto) 1.0 TH/MM3 Monocytes # (Auto) 1.8 TH/MM3 Eosinophils # (Auto) 0.1 TH/MM3 Basophils # (Auto) 0.1 TH/MM3 CBC Comment DIFF FINAL Differential Comment Hematology Comments Lactic Acid Level 1.1 mmol/L White Blood Count 17.3 TH/MM3 Red Blood Count 3.56 MIL/MM3 Hemoglobin 10.3 GM/DL Hematocrit 30.9 % Mean Corpuscular Volume 86.7 FL Mean Corpuscular Hemoglobin 29.0 PG Mean Corpuscular Hemoglobin Concent 33.4 % Red Cell Distribution Width 14.8 % Platelet Count 161 TH/MM3 Mean Platelet Volume 10.8 FL Phosphorus Level 2.2 MG/DL Anion Gap 8 MEQ/L Estimat Glomerular Filtration Rate 34 ML/MIN Activated Partial Thromboplast Time 42.5 SEC Objective Remarks GENERAL: Lethargic as per nurse gave him Haldol. CV: Irregular rate with tachycardia and irregular rhythm. No rubs murmurs or gallops. Resp: Clear to all station bilaterally Abdomen: Soft but distended. Negative tenderness palpation. No peritoneal signs. Extremity negative for any edema. Neuro: Lethargic. Medications and IVs Current Medications Medications (Trade) Dose Ordered Sig/Mansi Route Start Time Stop Time Status Last Admin (Tylenol) 650 mg Q6H PRN PO 01/10/17 17:00 01/21/17 18:11 (Proair Hfa Inh) 2 puff Q6H PRN INH 01/10/17 17:00 (Lipitor) 80 mg HS PO 01/10/17 21:00 01/16/17 21:53 (Nitrostat Sl) 0.4 mg Q3H PRN SL 01/10/17 17:00 (Ecotrin Ec) 81 mg DAILY PO 01/10/17 17:00 01/22/17 09:12 (NovoLOG SUPPLEMENTAL SCALE) 1 Q4H SQ 01/10/17 17:00 01/22/17 05:00 (NS Flush) 2 ml BID IV FLUSH 01/10/17 21:00 01/22/17 09:00 Miscellaneous Information 1 Q361D XX 01/10/17 17:15 (Chlorhexidine 2% Cloth) Taper DAILY@04 TOP 01/11/17 04:00 01/07/18 03:59 01/17/17 01:29 (Chlorhexidine 2% Cloth) 3 pack UNSCH PRN TOP 10/21/17 17:15 (Afia-Colace) 1 tab BID PO 01/10/17 21:00 01/22/17 09:11 (Milk Of Magnesia Liq) 30 ml Q12H PRN PO 01/10/17 17:15 (Senokot) 17.2 mg Q12H PRN PO 01/10/17 17:15 (Dulcolax Supp) 10 mg DAILY PRN RECTAL 01/10/17 17:15 (Lactulose Liq) 30 ml DAILY PRN PO 01/10/17 17:15 Sodium Chloride 1,000 ml @ 0 mls/hr Q0M PRN OTHER 01/10/17 17:47 01/10/17 22:05 (Heparin Inj) 8,000 units UNSCH PRN IV FLUSH 01/10/17 18:00 Sodium Chloride 1,000 ml @ 200 mls/hr Q5H PRN IV 01/10/17 17:47 Sodium Chloride 1,000 ml @ 0 mls/hr Q0M PRN OTHER 01/10/17 17:47 (Mannitol Inj) 12.5 gm UNSCH PRN IV 01/10/17 18:00 Albumin Human 100 ml @ 60 mls/hr UNSCH PRN IV 01/10/17 18:00 (NS Flush) 5 ml UNSCH PRN IV FLUSH 01/10/17 18:00 (Heparin Inj) UNSCH PRN .XX 01/10/17 18:00 (Gentamicin (Dialysis) Inj) 20 mg UNSCH PRN OTHER 01/10/17 18:00 01/10/17 22:03 (Zofran Inj) 4 mg UNSCH PRN IV PUSH 01/10/17 18:00 01/18/17 08:51 (Tylenol) 650 mg UNSCH PRN PO 01/10/17 18:00 01/21/17 10:01 (Benadryl) 25 mg UNSCH PRN PO 01/10/17 18:00 (Nitrostat Sl) 0.4 mg UNSCH PRN SL 01/10/17 18:00 (Catapres) 0.1 mg UNSCH PRN PO 01/10/17 18:00 01/15/17 02:07 (Gelfoam 12 Mm/7 Mm Top) 1 foam UNSCH PRN TOP 01/10/17 18:00 (D50w (Vial) Inj) 50 ml UNSCH PRN IV PUSH 01/10/17 22:30 01/10/17 18:05 (Glucagon Inj) 1 mg UNSCH PRN OTHER 01/10/17 22:30 Dexmedetomidine HCl 200 mcg/ Sodium Chloride 52 ml @ 5.46 mls/hr TITRATE PRN IV 01/11/17 00:00 01/12/17 14:53 (Haldol Inj) 5 mg Q4H PRN IV 01/12/17 17:00 01/20/17 10:02 Sodium Chloride 38.5 meq/Sterile Water 1,009.625 ml @ 84 mls/hr Q12H2M IV 01/13/17 15:00 01/20/17 20:56 (Reglan Inj) 5 mg Q8H IV PUSH 01/15/17 10:00 01/22/17 09:26 (Apresoline Inj) 10 mg Q4H PRN IV PUSH 01/15/17 10:00 Potassium Chloride 100 ml @ 50 mls/hr Q2H IV 01/15/17 10:00 Future Hold 01/16/17 06:11 (Heparin Inj) 5,000 units UNSCH PRN IV PUSH 01/15/17 17:15 (Heparin Inj) 2,500 units UNSCH PRN IV PUSH 01/15/17 17:15 01/16/17 06:17 (Catapres-Tts 0.3 Mg Patch.7d) 1 patch Q7D T-DERMAL 01/16/17 10:00 01/16/17 14:14 Miscellaneous Information 1 Q7D T-DERMAL 01/16/17 10:00 01/16/17 10:00 (Mucinex Er) 600 mg BID PO 01/16/17 21:00 01/22/17 09:12 (Oscal) 500 mg TID PO 01/17/17 13:00 01/22/17 09:12 (K-Phos) 500 mg Q12HR PO 01/17/17 14:00 01/22/17 09:12 (SEROquel) 25 mg BID PO 01/17/17 21:00 01/22/17 09:12 (Lopressor) 50 mg Q8HR PO 01/19/17 14:00 01/21/17 13:48 (Cardizem Cd) 300 mg DAILY PO 01/20/17 09:00 01/22/17 09:12 (Trandate Inj) 10 mg Q4H PRN IV PUSH 01/20/17 08:30 01/20/17 17:27 Cefepime HCl 1000 mg/Sodium Chloride 100 ml @ 200 mls/hr Q12H IV 01/22/17 09:00 01/22/17 09:00 Azithromycin 250 mg/Sodium Chloride 250 ml @ 250 mls/hr Q24H IV 01/22/17 10:00 01/22/17 09:23 A/P Assessment and Plan 1. Acute Metabolic Encephalopathy/Agitated Delirium, History of Previous CVA with left hemiparesis, at this time Lethargic due to Haldol and basal pathology. 2. Severe combined Metabolic and respiratory acidosis resolved Past Tobacco dependence continue Bronchodilator, Mucolytic and incentive spirometry 3. Atrial Flutter/Fibrillation with RVR/Elevated Troponin, History of CAD and Hypertension, Cardiology following, recommended Metoprolol Warfarin, equivocal Troponin elevation, recommended by Cardiology to stop Warfarin due to non compliance. 4. Acute kidney Injury on chronic kidney disease, slowly improving, Nephrology specialist following. had one single HD and improved. 5. DM II/Dyslipidemia continue sliding scale. 6. Electrolyte derangement Slowly improving 7. Elevated Troponin but no angina like symptoms, normal left ventricular function by Echo recent non ischemic nuclear stress. 8. Delirium due to another medical condition, due to lack of cooperation inability to express a rational choice and inability to verbalize reason of hospitalization and nature of her medical illnesses the patient doesn't have decision making capacity to refuse medications of to leave AMA. 9. Fever improved, his Chest X ray has some infiltrates, started on Cefepime and Azithromycin and following. today is been afebrile will continue antibiotics until new Blood culture is negative some days and follow off antibiotics. has Leukocytosis will follow. Discussed with nurse Destiney. PROPH: - Bilateral lower extremity SCDs. Heparin IV DCd, protonix 40 mg IV q12 Discharge Planning Not yet ready for discharge continue Critical care management by now. Dane Gleason MD Jan 22, 2017 16:31
--- NOTE | 2017-01-22 17:47 | HHI.HCPN ---
Call from nurseLyndon to report brother/HCP, Isabela is at bedside getting ready to leave unit and has requested to chage CODE STATUS to FULL CODE. I spoke with him via telephone, he indicates after speaking with the "rest of the family of the family, they want to give him a chance." He understands patient may not survive resuscitation efforts, reviewed CPR, shock, intubation and mech ventilation. He understands this may leave him in a position to have to make decisions for withdrawal of life support. He responds " I would have no problem pulling the plug." Plan: * Decision Maker: Patient deemed incapacitated per psychiatry to make his own health care decisions, uncertain if he will regain capacity. Single. No children. Mother in a skilled nursing with underlying schizophrenia, not capacitated herself. Father . 2 sisters and one brother. 2 sisters, Lizeth and Alejandrina do not wish to serve as healthcare proxy decision makers. Therefore, healthcare proxy decision-making will fall to the patient's brother, Yareli Andrews, he is willing to serve in this role. * FULL CODE per brother/ HCP requests, he rescinded DNR/DNI status on 01/22/17 after speaking with family. * Palliative care spoke with BrotherYaerli on 01/22/17 he desires continued aggressive care, including FULL CODE, dialysis and forced medications if necessary. * SYMPTOMS: Pain: denies pain during my visit. Weakness: debility due to prior stroke. * Palliative care will continue to follow throughout hospital course to assist with symptom management and clarification of goals as needed. . Dariana Stephen Jan 22, 2017 17:47
[2017-01-22] MEDS: ATORVASTATIN 80 MG TAB PO SCH (21:07)
[2017-01-22] MEDS: ACETAMINOPHEN 325 MG TAB PO PRN (21:07)
[2017-01-22 22:35] LABS: BLOOD GAS BASE EXCESS 2.7 mmol/L (-2-2); BLOOD GAS CARBOXYHEMOGLOBIN 1.3 % (0-4); BLOOD GAS HCO3 26 mmol/L (22-26); BLOOD GAS METHEMOGLOBIN 1.3 % (0-2); BLOOD GAS OXYGEN CONTENT 12.1 Vol % (12.0-20.0); BLOOD GAS PCO2 35 mmHg (38-42); BLOOD GAS PO2 63 mmHg (61-120); BLOOD GAS TOTAL HGB 9.6 G/DL (12.0-16.0); CRITICAL VALUE YES; DRAW SITE RT RADIAL; LITER FLOW 2 L/M; NUMBER OF ARTERIAL PUNCTURES 1; OXYGEN DEVICE NASAL CANNULA; TEMP CORR TO 98.6; ULNAR PULSE PRESENT
[2017-01-22 22:36] LABS: BLOOD GAS O2 HGB SATURATION 89 % (90-100); STAT YES
[2017-01-22] MEDS: SODIUM CHLORIDE 23.4% INJ 38.5 MEQ in WATER STERILE FOR INJ 1,000 ML IV SCH (22:46)
[2017-01-22 23:17] LABS: AUTOMATED NEUTROPHIL # 14.9 TH/MM3 (1.8-7.7); BASOPHIL # 0.1 TH/MM3 (0-0.2); BASOPHIL % 0.3 % (0.0-2.0); EOSINOPHIL # 0.1 TH/MM3 (0-0.4); EOSINOPHIL % 0.3 % (0.0-4.0); HEMATOCRIT 29.7 % (39.0-51.0); LYMPH % 4.8 % (9.0-44.0); LYMPHOCYTE # 0.8 TH/MM3 (1.0-4.8); MEAN CELL VOLUME 85.4 FL (80.0-100.0); MEAN CORPUSCULAR HEMOGLOBIN 28.8 PG (27.0-34.0); MEAN CORPUSCULAR HGB CONC 33.8 % (32.0-36.0); MONO % 8.5 % (0.0-8.0); NEUT % 86.1 % (16.0-70.0); PLATELET COUNT 196 TH/MM3 (150-450); RED BLOOD COUNT 3.48 MIL/MM3 (4.50-5.90); RED CELL DISTRIBUTION WIDTH 14.6 % (11.6-17.2); WHITE BLOOD COUNT 17.4 TH/MM3 (4.0-11.0)
[2017-01-22 23:24] LABS: HEMO FLAGS AUTO DIFF
[2017-01-22 23:27] LABS: APTT (PATIENT) 44.6 SEC (24.3-30.1); INTERNATIONAL NORMALIZED RATIO 2.7 RATIO; PROTHROMBIN TIME - PATIENT 31.4 SEC (9.8-11.6)
[2017-01-22 23:39] LABS: ALKALINE PHOSPHATASE 88 U/L (45-117); ALT (GPT) 26 U/L (12-78); ANION GAP 10 MEQ/L (5-15); AST (GOT) 42 U/L (15-37); BICARBONATE 24.2 MEQ/L (21.0-32.0); BLOOD UREA NITROGEN 33 MG/DL (7-18); CHLORIDE 102 MEQ/L (98-107); GLOMERULAR FILTRATION RATE 36 ML/MIN (>89); MAGNESIUM 1.5 MG/DL (1.5-2.5); POTASSIUM 3.9 MEQ/L (3.5-5.1); SODIUM (NA) 136 MEQ/L (136-145); TOTAL BILIRUBIN ADULT 1.1 MG/DL (0.2-1.0)
[2017-01-23] VITALS (39 sets, daily range): BP systolic 110–165; BP diastolic 58–101; PULSE 103–145; RESP 23–36; TEMP 98.4–103; O2SAT 92–100
[2017-01-23 00:57] LABS: BANDS 11 % (0-6); BASOPHILS 1 % (0-2); CORRECTED NUCLEATED RBC 1 /100 WBC (0-0); EOSINOPHILS 1 % (0-4); METAMYELOCYTES 1 % (0-1); POLYS (SEG NEUTROPHILS) 80 % (16-70); WBC DIFF SAMPLE 100
[2017-01-23 00:58] LABS: DOHLE BODIES PRESENT (NONE SEEN); PLATELET ESTIMATE SMEAR NORMAL (NORMAL); PLATELET MORPHOLOGY ENLARGED (NORMAL); SCAN/DIFF FINAL DIFF MANUAL; TOXIC GRANULATION 1+ (NORMAL)
[2017-01-23] MEDS: INSULIN ASPART SUPPLEMENTAL SCALE SQ SCH ×2 (01:29→04:39)
[2017-01-23] MEDS: METOCLOPRAMIDE HCL 10 MG/2 ML VIAL IV PUSH SCH ×3 (01:29→17:05)
[2017-01-23 03:54] LABS: AUTOMATED NEUTROPHIL # 17.4 TH/MM3 (1.8-7.7); BASOPHIL # 0.1 TH/MM3 (0-0.2); BASOPHIL % 0.3 % (0.0-2.0); EOSINOPHIL # 0.1 TH/MM3 (0-0.4); EOSINOPHIL % 0.3 % (0.0-4.0); HEMATOCRIT 31.9 % (39.0-51.0); LYMPH % 4.6 % (9.0-44.0); LYMPHOCYTE # 0.9 TH/MM3 (1.0-4.8); MEAN CELL VOLUME 86.3 FL (80.0-100.0); MEAN CORPUSCULAR HEMOGLOBIN 28.6 PG (27.0-34.0); MEAN CORPUSCULAR HGB CONC 33.1 % (32.0-36.0); MONO % 9.1 % (0.0-8.0); NEUT % 85.7 % (16.0-70.0); PLATELET COUNT 207 TH/MM3 (150-450); RED CELL DISTRIBUTION WIDTH 14.5 % (11.6-17.2); WHITE BLOOD COUNT 20.3 TH/MM3 (4.0-11.0)
[2017-01-23 03:58] LABS: HEMO FLAGS AUTO DIFF
[2017-01-23] MEDS: CHLORHEXIDINE GLUCONATE 2 % 1 PACK (2 CLOTHS) TOP SCH (04:00)
[2017-01-23 04:02] LABS: INTERNATIONAL NORMALIZED RATIO 2.6 RATIO; PROTHROMBIN TIME - PATIENT 29.4 SEC (9.8-11.6)
[2017-01-23 04:21] LABS: ANION GAP 8 MEQ/L (5-15); AST (GOT) 55 U/L (15-37); BICARBONATE 26.9 MEQ/L (21.0-32.0); BLOOD UREA NITROGEN 33 MG/DL (7-18); CHLORIDE 101 MEQ/L (98-107); GLOMERULAR FILTRATION RATE 38 ML/MIN (>89); POTASSIUM 3.8 MEQ/L (3.5-5.1); SODIUM (NA) 136 MEQ/L (136-145)
[2017-01-23 04:24] LABS: ALKALINE PHOSPHATASE 67 U/L (45-117); ALT (GPT) 28 U/L (12-78); TOTAL BILIRUBIN ADULT 1.1 MG/DL (0.2-1.0)
[2017-01-23] MEDS: METOPROLOL TARTRATE 50 MG TAB PO SCH ×3 (05:21→21:42)
[2017-01-23 05:24] LABS: BANDS 30 % (0-6); NEUTROPHIL # MANUAL DIFF 18.1 TH/MM3 (1.8-7.7); POLYS (SEG NEUTROPHILS) 59 % (16-70); WBC DIFF SAMPLE 100
[2017-01-23 05:25] LABS: DOHLE BODIES PRESENT (NONE SEEN); PLATELET ESTIMATE SMEAR NORMAL (NORMAL); PLATELET MORPHOLOGY ENLARGED (NORMAL); SCAN/DIFF FINAL DIFF MANUAL; TOXIC GRANULATION 1+ (NORMAL)
[2017-01-23 05:26] LABS: TOXIC VACUOLATION PRESENT (NONE SEEN)
[2017-01-23] MEDS ORDERED: Vancomycin Consult Pharmacy 1 EA OTHER SCH ×2 (05:45→10:15)
[2017-01-23] MEDS ORDERED: VANCOMYCIN INJ 1,250 MG in SODIUM CHLOR 0.9% 250 ML INJ 250 ML IV ONE ×2 (06:00→09:15)
[2017-01-23 06:12] LABS: BLOOD GAS BASE EXCESS 2.3 mmol/L (-2-2); BLOOD GAS HCO3 26 mmol/L (22-26); BLOOD GAS METHEMOGLOBIN 1.3 % (0-2); BLOOD GAS O2 HGB SATURATION 91 % (90-100); BLOOD GAS PCO2 34 mmHg (38-42); BLOOD GAS PO2 67 mmHg (61-120); BLOOD GAS TOTAL HGB 10.1 G/DL (12.0-16.0); CRITICAL VALUE NO; OXYGEN DEVICE NASAL CANNULA; TEMP CORR TO 98.6
[2017-01-23 06:13] LABS: DRAW SITE LT RADIAL; LITER FLOW 4 L/M; NUMBER OF ARTERIAL PUNCTURES 1; STAT NO; ULNAR PULSE PRESENT
[2017-01-23 08:24] LABS: HEMATOCRIT 31.2 % (39.0-51.0); HEMO FLAGS AUTO DIFF; MEAN CELL VOLUME 85.8 FL (80.0-100.0); MEAN CORPUSCULAR HEMOGLOBIN 28.8 PG (27.0-34.0); MEAN CORPUSCULAR HGB CONC 33.5 % (32.0-36.0); PLATELET COUNT 180 TH/MM3 (150-450); RED BLOOD COUNT 3.63 MIL/MM3 (4.50-5.90); RED CELL DISTRIBUTION WIDTH 14.7 % (11.6-17.2); WHITE BLOOD COUNT 21.3 TH/MM3 (4.0-11.0)
--- NOTE | 2017-01-23 08:33 | HHI.PR ---
Subjective Remarks provider education specialist following, with diagnosis of Atrial Fibrillation, recommended to stop Warfarin due to Non compliance, has elevated Troponin but no angina like symptoms, normal left ventricular function by Echo recent non ischemic nuclear stress. Psychiatry specialist following with diagnosis of Delirium due to another medical condition, due to lack of cooperation inability to express a rational choice and inability to verbalize reason of hospitalization and nature of her medical illnesses the patient doesn't have decision making capacity to refuse medications of to leave AMA. 01/21: patient stable during the day, during the afternoon he started with fever for this reason was asked for CXR, blood cultures lactic acid, new CBC, UA and follow results. no nausea, vomit or diarrhea. 01/22: Seen in his bedroom with nurse Miss Cabello, no changes no nausea, vomit or diarrhea, the patient has not the drive to help for his Care I think related to Psychiatric Issues more than organic disease, will be organic if continue with this behavior. at this time somnolent but awakes and engage in conversation. 01/23: patient seen in his bedroom, continue Lethargic, continue Febrile seen with nurse Miss Moreira, asked for ID specialist consult and oncology account specialist evaluation today, no nausea, vomit or diarrhea Objective Vital Signs Date Time Temp Pulse Resp B/P (MAP) Pulse Ox O2 Delivery O2 Flow Rate FiO2 01/23/17 06:00 127 01/23/17 04:00 98.4 134 32 138/84 (102) 96 01/23/17 04:00 134 01/23/17 02:00 119 01/23/17 00:00 102.0 103 31 152/101 (118) 97 01/23/17 00:00 103 01/22/17 22:00 112 01/22/17 20:00 110 01/22/17 20:00 102.6 110 33 125/68 (87) 92 01/22/17 14:00 110 01/22/17 12:00 110 01/22/17 12:00 99.4 120 20 123/69 (87) 96 01/22/17 10:00 110 I/O 01/22/17 01/22/17 01/22/17 01/23/17 01/23/17 01/23/17 07:00 15:00 23:00 07:00 15:00 23:00 Intake Total 1357 ml 350 ml 220 ml Output Total 1650 ml 1500 ml Balance -293 ml 350 ml -1280 ml Intake Oral 0 ml 120 ml IV Total 1357 ml 350 ml 100 ml Output Urine Total 1650 ml 1500 ml # Bowel Movements 0 Result Diagram: 01/23/17 0752 01/23/17 0325 Imaging Last Impressions Chest X-Ray 01/21/17 0000 Signed Impressions: Service Date/Time: Saturday, January 21, 2017 22:42 - CONCLUSION: New hazy opacity in both lungs with concern for ovarian edema and congestive heart failure. Jose Espinal MD Abdomen X-Ray 01/18/17 0000 Signed Impressions: Service Date/Time: Wednesday, January 18, 2017 08:02 - CONCLUSION: No acute disease. Edward Mata MD Head CT 01/10/17 1257 Signed Impressions: Service Date/Time: Tuesday, January 10, 2017 13:32 - CONCLUSION: No acute disease. Jermaine Malone Jr., MD Renal Ultrasound 01/10/17 0000 Signed Impressions: Service Date/Time: Tuesday, January 10, 2017 17:01 - CONCLUSION: Normal examination. Jermaine Malone Jr., MD Procedures Hemodialysis. Other Results Laboratory Tests Test 01/10/17 16:57 01/10/17 18:00 01/10/17 20:17 01/11/17 03:40 Blood Gas Inspired Oxygen 21 % Nasal Screen MRSA (PCR) MRSA NOT DETECTED Hepatitis A IgM Antibody NEGATIVE Hepatitis B Surface Antigen NEGATIVE Hepatitis B Core IgM Antibody NEGATIVE Hepatitis C Antibody NEGATIVE Troponin I 2.31 NG/ML Test 01/15/17 07:20 01/17/17 05:10 01/21/17 12:50 01/22/17 00:15 Urine Color YELLOW Urine Turbidity CLEAR Urine pH 6.5 Urine Specific [place] 1.017 Urine Protein 100 mg/dL Urine Glucose (UA) NEG mg/dL Urine Ketones 10 mg/dL Urine Occult Blood SMALL Urine Nitrite NEG Urine Bilirubin NEG Urine Urobilinogen 2.0 MG/DL Urine Leukocyte Esterase NEG Urine RBC 10 /hpf Urine WBC 3 /hpf Urine Squamous Epithelial Cells <1 /hpf Urine Amorphous Sediment OCC Urine Bacteria RARE /hpf Urine Mucus FEW /lpf Microscopic Urinalysis Comment CULT NOT INDICATED Hemoglobin A1c 7.0 % Free Thyroxine 1.77 NG/DL Thyroid Stimulating Hormone 3rd Gen 1.190 uIU/ML Protein Corrected Calcium 7.2 MG/DL Lactic Acid Level 1.1 mmol/L Test 01/22/17 22:39 01/23/17 03:25 01/23/17 05:50 01/23/17 07:52 Eosinophils % 1 % Basophils % 1 % Metamyelocytes 1 % Nucleated Red Blood Cells 1 /100 WBC Blood Urea Nitrogen 33 MG/DL 33 MG/DL Creatinine 2.30 MG/DL 2.20 MG/DL Random Glucose 225 MG/DL 176 MG/DL Total Protein 6.8 GM/DL 6.8 GM/DL Albumin 1.9 GM/DL 2.0 GM/DL Calcium Level 7.7 MG/DL 7.6 MG/DL Phosphorus Level 1.9 MG/DL 2.0 MG/DL Magnesium Level 1.5 MG/DL Alkaline Phosphatase 88 U/L 67 U/L Aspartate Amino Transf (AST/SGOT) 42 U/L 55 U/L Alanine Aminotransferase (ALT/SGPT) 26 U/L 28 U/L Total Bilirubin 1.1 MG/DL 1.1 MG/DL Sodium Level 136 MEQ/L 136 MEQ/L Potassium Level 3.9 MEQ/L 3.8 MEQ/L Chloride Level 102 MEQ/L 101 MEQ/L Carbon Dioxide Level 24.2 MEQ/L 26.9 MEQ/L Neutrophils (%) (Auto) 85.7 % Lymphocytes (%) (Auto) 4.6 % Monocytes (%) (Auto) 9.1 % Eosinophils (%) (Auto) 0.3 % Basophils (%) (Auto) 0.3 % Neutrophils # (Auto) 17.4 TH/MM3 Lymphocytes # (Auto) 0.9 TH/MM3 Monocytes # (Auto) 1.8 TH/MM3 Eosinophils # (Auto) 0.1 TH/MM3 Basophils # (Auto) 0.1 TH/MM3 Differential Total Cells Counted 100 Neutrophils % (Manual) 59 % Band Neutrophils % 30 % Lymphocytes % 6 % Monocytes % 5 % Neutrophils # (Manual) 18.1 TH/MM3 Toxic Granulation 1+ Toxic Vacuolation PRESENT Dohle Bodies PRESENT Platelet Estimate NORMAL Platelet Morphology Comment ENLARGED Red Cell Morphology Comment NORMAL Prothrombin Time 29.4 SEC Prothromb Time International Ratio 2.6 RATIO Activated Partial Thromboplast Time 35.0 SEC Anion Gap 8 MEQ/L Estimat Glomerular Filtration Rate 38 ML/MIN Blood Gas Puncture Site LT RADIAL Blood Gas Patient Temperature 98.6 Blood Gas HCO3 26 mmol/L Blood Gas Base Excess 2.3 mmol/L Blood Gas Oxygen Saturation 91 % Arterial Blood pH 7.49 Arterial Blood Partial Pressure CO2 34 mmHg Arterial Blood Partial Pressure O2 67 mmHg Arterial Blood Oxygen Content 13.0 Vol % Arterial Blood Carboxyhemoglobin 1.0 % Arterial Blood Methemoglobin 1.3 % Blood Gas Hemoglobin 10.1 G/DL Oxygen Delivery Device NASAL CANNULA Blood Gas Liter Flow 4 L/M White Blood Count 21.3 TH/MM3 Red Blood Count 3.63 MIL/MM3 Hemoglobin 10.5 GM/DL Hematocrit 31.2 % Mean Corpuscular Volume 85.8 FL Mean Corpuscular Hemoglobin 28.8 PG Mean Corpuscular Hemoglobin Concent 33.5 % Red Cell Distribution Width 14.7 % Platelet Count 180 TH/MM3 Mean Platelet Volume 9.8 FL CBC Comment AUTO DIFF Hematology Comments Objective Remarks GENERAL: Lethargic as per nurse gave him Haldol. CV: Irregular rate with tachycardia and irregular rhythm. No rubs murmurs or gallops. Resp: Clear to all station bilaterally Abdomen: Soft but distended. Negative tenderness palpation. No peritoneal signs. Extremity negative for any edema. Neuro: Lethargic. Medications and IVs Current Medications Medications (Trade) Dose Ordered Sig/Mansi Route Start Time Stop Time Status Last Admin (Tylenol) 650 mg Q6H PRN PO 01/10/17 17:00 01/21/17 18:11 (Proair Hfa Inh) 2 puff Q6H PRN INH 01/10/17 17:00 (Lipitor) 80 mg HS PO 01/10/17 21:00 01/22/17 21:07 (Nitrostat Sl) 0.4 mg Q3H PRN SL 01/10/17 17:00 (Ecotrin Ec) 81 mg DAILY PO 01/10/17 17:00 01/22/17 09:12 (NovoLOG SUPPLEMENTAL SCALE) 1 Q4H SQ 01/10/17 17:00 01/23/17 04:39 (NS Flush) 2 ml BID IV FLUSH 01/10/17 21:00 01/22/17 21:07 Miscellaneous Information 1 Q361D XX 01/10/17 17:15 (Chlorhexidine 2% Cloth) Taper DAILY@04 TOP 01/11/17 04:00 01/07/18 03:59 01/17/17 01:29 (Chlorhexidine 2% Cloth) 3 pack UNSCH PRN TOP 01/10/17 17:15 (Afia-Colace) 1 tab BID PO 01/10/17 21:00 01/22/17 21:07 (Milk Of Magnesia Liq) 30 ml Q12H PRN PO 01/10/17 17:15 (Senokot) 17.2 mg Q12H PRN PO 01/10/17 17:15 (Dulcolax Supp) 10 mg DAILY PRN RECTAL 01/10/17 17:15 (Lactulose Liq) 30 ml DAILY PRN PO 01/10/17 17:15 Sodium Chloride 1,000 ml @ 0 mls/hr Q0M PRN OTHER 01/10/17 17:47 01/10/17 22:05 (Heparin Inj) 8,000 units UNSCH PRN IV FLUSH 01/10/17 18:00 Sodium Chloride 1,000 ml @ 200 mls/hr Q5H PRN IV 01/10/17 17:47 Sodium Chloride 1,000 ml @ 0 mls/hr Q0M PRN OTHER 01/10/17 17:47 (Mannitol Inj) 12.5 gm UNSCH PRN IV 01/10/17 18:00 Albumin Human 100 ml @ 60 mls/hr UNSCH PRN IV 01/10/17 18:00 (NS Flush) 5 ml UNSCH PRN IV FLUSH 01/10/17 18:00 (Heparin Inj) UNSCH PRN .XX 01/10/17 18:00 (Gentamicin (Dialysis) Inj) 20 mg UNSCH PRN OTHER 01/10/17 18:00 01/10/17 22:03 (Zofran Inj) 4 mg UNSCH PRN IV PUSH 01/10/17 18:00 01/18/17 08:51 (Tylenol) 650 mg UNSCH PRN PO 01/10/17 18:00 01/22/17 21:07 (Benadryl) 25 mg UNSCH PRN PO 01/10/17 18:00 (Nitrostat Sl) 0.4 mg UNSCH PRN SL 01/10/17 18:00 (Catapres) 0.1 mg UNSCH PRN PO 01/10/17 18:00 01/15/17 02:07 (Gelfoam 12 Mm/7 Mm Top) 1 foam UNSCH PRN TOP 01/10/17 18:00 (D50w (Vial) Inj) 50 ml UNSCH PRN IV PUSH 01/10/17 22:30 01/10/17 18:05 (Glucagon Inj) 1 mg UNSCH PRN OTHER 01/10/17 22:30 Dexmedetomidine HCl 200 mcg/ Sodium Chloride 52 ml @ 5.46 mls/hr TITRATE PRN IV 01/11/17 00:00 01/12/17 14:53 (Haldol Inj) 5 mg Q4H PRN IV 01/12/17 17:00 01/20/17 10:02 Sodium Chloride 38.5 meq/Sterile Water 1,009.625 ml @ 84 mls/hr Q12H2M IV 01/13/17 15:00 01/22/17 22:46 (Reglan Inj) 5 mg Q8H IV PUSH 01/15/17 10:00 01/23/17 01:29 (Apresoline Inj) 10 mg Q4H PRN IV PUSH 01/15/17 10:00 Potassium Chloride 100 ml @ 50 mls/hr Q2H IV 01/15/17 10:00 Future Hold 01/16/17 06:11 (Heparin Inj) 5,000 units UNSCH PRN IV PUSH 01/15/17 17:15 (Heparin Inj) 2,500 units UNSCH PRN IV PUSH 01/15/17 17:15 01/16/17 06:17 (Catapres-Tts 0.3 Mg Patch.7d) 1 patch Q7D T-DERMAL 01/16/17 10:00 01/16/17 14:14 Miscellaneous Information 1 Q7D T-DERMAL 01/16/17 10:00 01/16/17 10:00 (Mucinex Er) 600 mg BID PO 01/16/17 21:00 01/22/17 09:12 (Oscal) 500 mg TID PO 01/17/17 13:00 01/22/17 18:00 (K-Phos) 500 mg Q12HR PO 01/17/17 14:00 01/22/17 21:07 (SEROquel) 25 mg BID PO 01/17/17 21:00 01/22/17 21:07 (Lopressor) 50 mg Q8HR PO 01/19/17 14:00 01/22/17 21:06 (Cardizem Cd) 300 mg DAILY PO 01/20/17 09:00 01/22/17 09:12 (Trandate Inj) 10 mg Q4H PRN IV PUSH 01/20/17 08:30 01/20/17 17:27 Cefepime HCl 1000 mg/Sodium Chloride 100 ml @ 200 mls/hr Q12H IV 01/22/17 09:00 01/22/17 22:46 Azithromycin 250 mg/Sodium Chloride 250 ml @ 250 mls/hr Q24H IV 01/22/17 10:00 01/22/17 09:23 Pharmacy Profile Note 0 ml @ 0 mls/hr UNSCH OTHER 01/23/17 05:45 A/P Assessment and Plan 1. Acute Metabolic Encephalopathy/Agitated Delirium, History of Previous CVA with left hemiparesis, continue lethargic. 2. Severe combined Metabolic and respiratory acidosis resolved Past Tobacco dependence continue Bronchodilator, Mucolytic and incentive spirometry 3. Atrial Flutter/Fibrillation with RVR/Elevated Troponin, History of CAD and Hypertension, Cardiology following, recommended Metoprolol Warfarin, equivocal Troponin elevation, recommended by Cardiology to stop Warfarin due to non compliance. 4. Acute kidney Injury on chronic kidney disease, slowly improving, Nephrology specialist following. had one single HD and improved. 5. DM II/Dyslipidemia continue sliding scale. 6. Electrolyte derangement Slowly improving 7. Elevated Troponin but no angina like symptoms, normal left ventricular function by Echo recent non ischemic nuclear stress. 8. Delirium due to another medical condition, due to lack of cooperation inability to express a rational choice and inability to verbalize reason of hospitalization and nature of her medical illnesses the patient doesn't have decision making capacity to refuse medications of to leave AMA. 9. Fever improved, his Chest X ray has some infiltrates, started on Cefepime and Azithromycin today positive blood cultures with Gram positive Cocci in pairs and clusters, added Vancomycin and asked for Infectious disease specialist consult. Discussed with nurse Miss Moreira. PROPH: - Bilateral lower extremity SCDs. Heparin IV DCd, protonix 40 mg IV q12 Discharge Planning Not yet ready for discharge continue Critical care management by now. Dane Gleason MD Jan 23, 2017 08:33
[2017-01-23] MEDS: INSULIN DETEMIR 100 UNITS/ML VIAL SQ SCH ×2 (09:00→21:43)
[2017-01-23] MEDS: DILTIAZEM-CD 300 MG CAP ER PO SCH (09:00)
[2017-01-23 09:10] LABS: BANDS 1 % (0-6); CORRECTED NUCLEATED RBC 2 /100 WBC (0-0); NEUTROPHIL # MANUAL DIFF 19.2 TH/MM3 (1.8-7.7); PLASMA CELLS 1 % (0-0); PLATELET ESTIMATE SMEAR NORMAL (NORMAL); PLATELET MORPHOLOGY NORMAL (NORMAL); POLYS (SEG NEUTROPHILS) 89 % (16-70); WBC DIFF SAMPLE 100
[2017-01-23 09:11] LABS: SCAN/DIFF FINAL DIFF MANUAL
[2017-01-23] MEDS: CEFEPIME INJ 1,000 MG in SODIUM CHLORIDE 0.9% INJ 100 ML IV SCH ×2 (09:50→21:00)
[2017-01-23] MEDS: QUEtiapine FUMARATE 25 MG TAB PO SCH ×2 (09:56→21:41)
[2017-01-23] MEDS: SODIUM CHLORIDE 0.9% FLUSH 10 ML FLUSH IV FLUSH SCH ×2 (09:56→21:00)
[2017-01-23] MEDS: guaiFENesin E.R. 600 MG TAB PO SCH ×2 (09:56→21:41)
[2017-01-23] MEDS: POTASSIUM PHOSPHATE MONOBASIC 500 MG TAB PO SCH ×2 (09:57→21:41)
[2017-01-23] MEDS: ASPIRIN EC 81 MG TABEC PO SCH (09:57)
[2017-01-23] MEDS: CALCIUM CARBONATE 1.25 GM (CA 500 MG) TAB PO SCH ×3 (09:57→17:05)
[2017-01-23] MEDS: DOCUSATE SODIUM 50 MG/SENNA 8.6 MG TAB PO SCH ×2 (09:57→21:42)
[2017-01-23] MEDS: cloNIDine HCL 0.3 MG/24 HR PATCH T-DERMAL SCH (10:00)
[2017-01-23] MEDS: REMOVE OLD PATCH T-DERMAL SCH (10:00)
[2017-01-23] MEDS: ACETAMINOPHEN 325 MG TAB PO PRN (10:18)
[2017-01-23] MEDS: AZITHROMYCIN INJ 250 MG in SODIUM CHLOR 0.9% 250 ML INJ 250 ML IV SCH (11:20)
[2017-01-23] MEDS: DILTIAZEM 125 MG/NS 100 ML IV PRN ×4 (11:37→21:40)
--- NOTE | 2017-01-23 11:40 | HHI.HCPN ---
Reason for visit a. To assist with evaluation and management of symptoms including: pain, weakness. b. To assist medical decision maker(s) with: better understanding of current medical conditions; weighing benefits/burdens of medical treatment options; making medical treatment decisions. . (Dariana Stephen) Subjective/Interval History Patient seen and examined in ICU. He is lethargic, arousable. Answers some simple questions. He reports pain "all over" and "some" pain in the chest. Unable to qualify or quantify. He did not eat breakfast.Nurse has had difficulty getting patient to take PO meds, he did just take some Tylenol for fever. Temp 103, ice packs placed. Tachycardic rate 130-150's. On oxygen via NC 4 LPM. EKG revealed A. Fib with RVR. WBC increased to 21.3. Creatinine 2.2, GFR 38, Total bilirubin 1.1, AST 55, albumin 2.0. Left arm with significant swelling today, recommend ultrasound for evaluation of possible DVT. . Family/friend interactions Called shylaerIsabela (HCP) to report concern regarding clinical change including fever, heart rate and breathing changes, he verbalizes understanding and tells me he is on his way. Will see brother when he arrives to provide more thorough update. Chemical Engineer consulted. Spoke with nursing staff. Family goals remain aggressive. . (Dariana Stephen) Family/friend interactions I (Reinaldo Escamilla MD) Advance Directives Living Will: Never completed Health Care Surrogate: Never completed Durable Power of Tube Wrapper: Never completed (Dariana Stephen) Advance Directive Specifics Health Care Surrogate(s): Patient is incapacitated to make his own health care decisions, uncertain if he will regain capacity. Single. No children. Mother in a half-way with underlying schizophrenia, not capacitated herself. Father . 2 sisters and one brother. 2 sisters, Lizeth and Alejandrina do not wish to serve as healthcare proxy decision makers. Therefore, healthcare proxy decision-making will fall to the patient's brother,Isabela Andrews, he is willing to serve in this role. . Significant change in goals: FULL CODE - brother revoked DNR on 01/22/17. Spoke with brother, Lerone / HCP to provide update on clinical change, on his way to hospital. Goals have been to continue aggressive care including dialysis and forced medications if necessary. . (Dariana Stephen) Objective Vital Signs Date Time Temp Pulse Resp B/P (MAP) Pulse Ox O2 Delivery O2 Flow Rate FiO2 01/23/17 09:21 97 Nasal Cannula 4.00 01/23/17 06:00 127 01/23/17 04:00 98.4 134 32 138/84 (102) 96 01/23/17 04:00 134 01/23/17 02:00 119 01/23/17 00:00 102.0 103 31 152/101 (118) 97 01/23/17 00:00 103 01/22/17 22:00 112 01/22/17 21:52 96 Nasal Cannula 2.00 01/22/17 20:00 110 01/22/17 20:00 102.6 110 33 125/68 (87) 92 01/22/17 14:00 110 01/22/17 12:00 110 01/22/17 12:00 99.4 120 20 123/69 (87) 96 Intake & Output 01/23/17 01/23/17 07:00 19:00 Intake Total 220 ml Output Total 1500 ml Balance -1280 ml Intake Oral 120 ml IV Total 100 ml Output Urine Total 1500 ml # Bowel Movements 0 Physical Exam CONSTITUTIONAL/GENERAL: This is an adequately nourished patient, in no apparent distress. TUBES/LINES/DRAINS: PIV, condom catheter. SKIN: Skin temperature appropriate. Not diaphoretic. CARDIOVASCULAR: Irregular, atrial fibrillation with RVR on telemetry. RESPIRATORY/CHEST: Labored respirations, rate 30s. Thick white sputum noted with cough. Scattered course breath sounds. GASTROINTESTINAL: Abdomen soft, non-tender, nondistended. No guarding. Bowel sounds present. GENITOURINARY: Without palpable bladder distension. Catheter in place. 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 Left upper extremity edema, new. NEUROLOGICAL: lethargic, arousable, answers simple questions. PSYCHIATRIC: lethargic. . (Dariana Stephen) Diagnostic Tests Laboratory Laboratory Tests Test 01/20/17 13:00 01/21/17 12:50 01/22/17 00:15 01/22/17 06:18 Activated Partial Thromboplast Time 71.8 SEC (24.3-30.1) 41.8 SEC (24.3-30.1) Blood Urea Nitrogen 36 MG/DL (7-18) 36 MG/DL (7-18) Creatinine 2.56 MG/DL (0.60-1.30) 2.38 MG/DL (0.60-1.30) Random Glucose 184 MG/DL (74-106) 142 MG/DL (74-106) Total Protein 6.9 GM/DL (6.4-8.2) Calcium Level 7.1 MG/DL (8.5-10.1) 7.6 MG/DL (8.5-10.1) Magnesium Level 1.7 MG/DL (1.5-2.5) Sodium Level 131 MEQ/L (136-145) 133 MEQ/L (136-145) Potassium Level 4.1 MEQ/L (3.5-5.1) 4.7 MEQ/L (3.5-5.1) Chloride Level 100 MEQ/L (98-107) 102 MEQ/L (98-107) Carbon Dioxide Level 22.4 MEQ/L (21.0-32.0) 22.8 MEQ/L (21.0-32.0) Anion Gap 9 MEQ/L (5-15) 8 MEQ/L (5-15) Estimat Glomerular Filtration Rate 32 ML/MIN (>89) 34 ML/MIN (>89) Protein Corrected Calcium 7.2 MG/DL (8.5-10.1) White Blood Count 18.8 TH/MM3 (4.0-11.0) 17.3 TH/MM3 (4.0-11.0) Red Blood Count 3.63 MIL/MM3 (4.50-5.90) 3.56 MIL/MM3 (4.50-5.90) Hemoglobin 10.4 GM/DL (13.0-17.0) 10.3 GM/DL (13.0-17.0) Hematocrit 31.3 % (39.0-51.0) 30.9 % (39.0-51.0) Mean Corpuscular Volume 86.2 FL (80.0-100.0) 86.7 FL (80.0-100.0) Mean Corpuscular Hemoglobin 28.7 PG (27.0-34.0) 29.0 PG (27.0-34.0) Mean Corpuscular Hemoglobin Concent 33.3 % (32.0-36.0) 33.4 % (32.0-36.0) Red Cell Distribution Width 14.6 % (11.6-17.2) 14.8 % (11.6-17.2) Platelet Count 139 TH/MM3 (150-450) 161 TH/MM3 (150-450) Mean Platelet Volume 10.1 FL (7.0-11.0) 10.8 FL (7.0-11.0) Neutrophils (%) (Auto) 83.9 % (16.0-70.0) Lymphocytes (%) (Auto) 5.4 % (9.0-44.0) Monocytes (%) (Auto) 9.8 % (0.0-8.0) Eosinophils (%) (Auto) 0.3 % (0.0-4.0) Basophils (%) (Auto) 0.6 % (0.0-2.0) Neutrophils # (Auto) 15.7 TH/MM3 (1.8-7.7) Lymphocytes # (Auto) 1.0 TH/MM3 (1.0-4.8) Monocytes # (Auto) 1.8 TH/MM3 (0-0.9) Eosinophils # (Auto) 0.1 TH/MM3 (0-0.4) Basophils # (Auto) 0.1 TH/MM3 (0-0.2) CBC Comment DIFF FINAL Differential Comment Hematology Comments Lactic Acid Level 1.1 mmol/L (0.4-2.0) Phosphorus Level 2.2 MG/DL (2.5-4.9) Test 01/22/17 11:45 01/22/17 22:14 01/22/17 22:39 01/23/17 03:25 Activated Partial Thromboplast Time 42.5 SEC (24.3-30.1) 44.6 SEC (24.3-30.1) 35.0 SEC (24.3-30.1) Blood Gas Puncture Site RT RADIAL Blood Gas Patient Temperature 98.6 Blood Gas HCO3 26 mmol/L (22-26) Blood Gas Base Excess 2.7 mmol/L (-2-2) Blood Gas Oxygen Saturation 89 % (90-100) Arterial Blood pH 7.48 (7.380-7.420) Arterial Blood Partial Pressure CO2 35 mmHg (38-42) Arterial Blood Partial Pressure O2 63 mmHg (61-120) Arterial Blood Oxygen Content 12.1 Vol % (12.0-20.0) Arterial Blood Carboxyhemoglobin 1.3 % (0-4) Arterial Blood Methemoglobin 1.3 % (0-2) Blood Gas Hemoglobin 9.6 G/DL (12.0-16.0) Oxygen Delivery Device NASAL CANNULA Blood Gas Liter Flow 2 L/M White Blood Count 17.4 TH/MM3 (4.0-11.0) 20.3 TH/MM3 (4.0-11.0) Red Blood Count 3.48 MIL/MM3 (4.50-5.90) 3.70 MIL/MM3 (4.50-5.90) Hemoglobin 10.0 GM/DL (13.0-17.0) 10.6 GM/DL (13.0-17.0) Hematocrit 29.7 % (39.0-51.0) 31.9 % (39.0-51.0) Mean Corpuscular Volume 85.4 FL (80.0-100.0) 86.3 FL (80.0-100.0) Mean Corpuscular Hemoglobin 28.8 PG (27.0-34.0) 28.6 PG (27.0-34.0) Mean Corpuscular Hemoglobin Concent 33.8 % (32.0-36.0) 33.1 % (32.0-36.0) Red Cell Distribution Width 14.6 % (11.6-17.2) 14.5 % (11.6-17.2) Platelet Count 196 TH/MM3 (150-450) 207 TH/MM3 (150-450) Mean Platelet Volume 10.1 FL (7.0-11.0) 9.9 FL (7.0-11.0) Neutrophils (%) (Auto) 86.1 % (16.0-70.0) 85.7 % (16.0-70.0) Lymphocytes (%) (Auto) 4.8 % (9.0-44.0) 4.6 % (9.0-44.0) Monocytes (%) (Auto) 8.5 % (0.0-8.0) 9.1 % (0.0-8.0) Eosinophils (%) (Auto) 0.3 % (0.0-4.0) 0.3 % (0.0-4.0) Basophils (%) (Auto) 0.3 % (0.0-2.0) 0.3 % (0.0-2.0) Neutrophils # (Auto) 14.9 TH/MM3 (1.8-7.7) 17.4 TH/MM3 (1.8-7.7) Lymphocytes # (Auto) 0.8 TH/MM3 (1.0-4.8) 0.9 TH/MM3 (1.0-4.8) Monocytes # (Auto) 1.5 TH/MM3 (0-0.9) 1.8 TH/MM3 (0-0.9) Eosinophils # (Auto) 0.1 TH/MM3 (0-0.4) 0.1 TH/MM3 (0-0.4) Basophils # (Auto) 0.1 TH/MM3 (0-0.2) 0.1 TH/MM3 (0-0.2) CBC Comment AUTO DIFF AUTO DIFF Differential Total Cells Counted 100 100 Neutrophils % (Manual) 80 % (16-70) 59 % (16-70) Band Neutrophils % 11 % (0-6) 30 % (0-6) Lymphocytes % 5 % (9-44) 6 % (9-44) Monocytes % 1 % (0-8) 5 % (0-8) Eosinophils % 1 % (0-4) Basophils % 1 % (0-2) Neutrophils # (Manual) 16.0 TH/MM3 (1.8-7.7) 18.1 TH/MM3 (1.8-7.7) Metamyelocytes 1 % (0-1) Nucleated Red Blood Cells 1 /100 WBC (0-0) Differential Comment FINAL DIFF MANUAL FINAL DIFF MANUAL Toxic Granulation 1+ (NORMAL) 1+ (NORMAL) Dohle Bodies PRESENT (NONE SEEN) PRESENT (NONE SEEN) Platelet Estimate NORMAL (NORMAL) NORMAL (NORMAL) Platelet Morphology Comment ENLARGED (NORMAL) ENLARGED (NORMAL) Red Cell Morphology Comment NORMAL (NORMAL) NORMAL (NORMAL) Hematology Comments Prothrombin Time 31.4 SEC (9.8-11.6) 29.4 SEC (9.8-11.6) Prothromb Time International Ratio 2.7 RATIO 2.6 RATIO Blood Urea Nitrogen 33 MG/DL (7-18) 33 MG/DL (7-18) Creatinine 2.30 MG/DL (0.60-1.30) 2.20 MG/DL (0.60-1.30) Random Glucose 225 MG/DL (74-106) 176 MG/DL (74-106) Total Protein 6.8 GM/DL (6.4-8.2) 6.8 GM/DL (6.4-8.2) Albumin 1.9 GM/DL (3.4-5.0) 2.0 GM/DL (3.4-5.0) Calcium Level 7.7 MG/DL (8.5-10.1) 7.6 MG/DL (8.5-10.1) Phosphorus Level 1.9 MG/DL (2.5-4.9) 2.0 MG/DL (2.5-4.9) Magnesium Level 1.5 MG/DL (1.5-2.5) Alkaline Phosphatase 88 U/L (45-117) 67 U/L (45-117) Aspartate Amino Transf (AST/SGOT) 42 U/L (15-37) 55 U/L (15-37) Alanine Aminotransferase (ALT/SGPT) 26 U/L (12-78) 28 U/L (12-78) Total Bilirubin 1.1 MG/DL (0.2-1.0) 1.1 MG/DL (0.2-1.0) Sodium Level 136 MEQ/L (136-145) 136 MEQ/L (136-145) Potassium Level 3.9 MEQ/L (3.5-5.1) 3.8 MEQ/L (3.5-5.1) Chloride Level 102 MEQ/L (98-107) 101 MEQ/L (98-107) Carbon Dioxide Level 24.2 MEQ/L (21.0-32.0) 26.9 MEQ/L (21.0-32.0) Anion Gap 10 MEQ/L (5-15) 8 MEQ/L (5-15) Estimat Glomerular Filtration Rate 36 ML/MIN (>89) 38 ML/MIN (>89) Toxic Vacuolation PRESENT (NONE SEEN) Test 01/23/17 05:50 01/23/17 07:52 Blood Gas Puncture Site LT RADIAL Blood Gas Patient Temperature 98.6 Blood Gas HCO3 26 mmol/L (22-26) Blood Gas Base Excess 2.3 mmol/L (-2-2) Blood Gas Oxygen Saturation 91 % (90-100) Arterial Blood pH 7.49 (7.380-7.420) Arterial Blood Partial Pressure CO2 34 mmHg (38-42) Arterial Blood Partial Pressure O2 67 mmHg (61-120) Arterial Blood Oxygen Content 13.0 Vol % (12.0-20.0) Arterial Blood Carboxyhemoglobin 1.0 % (0-4) Arterial Blood Methemoglobin 1.3 % (0-2) Blood Gas Hemoglobin 10.1 G/DL (12.0-16.0) Oxygen Delivery Device NASAL CANNULA Blood Gas Liter Flow 4 L/M White Blood Count 21.3 TH/MM3 (4.0-11.0) Red Blood Count 3.63 MIL/MM3 (4.50-5.90) Hemoglobin 10.5 GM/DL (13.0-17.0) Hematocrit 31.2 % (39.0-51.0) Mean Corpuscular Volume 85.8 FL (80.0-100.0) Mean Corpuscular Hemoglobin 28.8 PG (27.0-34.0) Mean Corpuscular Hemoglobin Concent 33.5 % (32.0-36.0) Red Cell Distribution Width 14.7 % (11.6-17.2) Platelet Count 180 TH/MM3 (150-450) Mean Platelet Volume 9.8 FL (7.0-11.0) CBC Comment AUTO DIFF Differential Total Cells Counted 100 Neutrophils % (Manual) 89 % (16-70) Band Neutrophils % 1 % (0-6) Lymphocytes % 2 % (9-44) Monocytes % 7 % (0-8) Neutrophils # (Manual) 19.2 TH/MM3 (1.8-7.7) Nucleated Red Blood Cells 2 /100 WBC (0-0) Differential Comment FINAL DIFF MANUAL Plasma Cells 1 % (0-0) Platelet Estimate NORMAL (NORMAL) Platelet Morphology Comment NORMAL (NORMAL) Red Cell Morphology Comment NORMAL (NORMAL) Hematology Comments (Dariana Stephen) Result Diagram: 01/23/17 0752 01/23/17 0325 Microbiology Microbiology Date/Time Source Procedure Growth Status 01/23/17 06:11 Blood Peripheral Aerobic Blood Culture Pending Received 01/23/17 06:11 Blood Peripheral Anaerobic Blood Culture Pending Received 01/23/17 06:00 Blood Peripheral Aerobic Blood Culture Pending Received 01/23/17 06:00 Blood Peripheral Anaerobic Blood Culture Pending Received 01/22/17 00:15 Blood Peripheral Aerobic Blood Culture - Preliminary Gram Positive Cocci Resulted 01/22/17 00:15 Blood Peripheral Anaerobic Blood Culture - Final QNS - SEE AEROBE REPORT Resulted 01/22/17 00:10 Blood Peripheral Aerobic Blood Culture - Preliminary Gram Positive Cocci Resulted 01/22/17 00:10 Blood Peripheral Anaerobic Blood Culture - Final QNS - SEE AEROBE REPORT Resulted Imaging Last Impressions Chest X-Ray 01/21/17 0000 Signed Impressions: Service Date/Time: Saturday, January 21, 2017 22:42 - CONCLUSION: New hazy opacity in both lungs with concern for ovarian edema and congestive heart failure. Jose Espinal MD Abdomen X-Ray 01/18/17 0000 Signed Impressions: Service Date/Time: Wednesday, January 18, 2017 08:02 - CONCLUSION: No acute disease. Edward Mata MD Head CT 01/10/17 1257 Signed Impressions: Service Date/Time: Tuesday, January 10, 2017 13:32 - CONCLUSION: No acute disease. Jermaine Malone Jr., MD Renal Ultrasound 01/10/17 0000 Signed Impressions: Service Date/Time: Tuesday, January 10, 2017 17:01 - CONCLUSION: Normal examination. Jermaine Malone Jr., MD (Dariana Stephen) Assessment and Plan Disease Oriented Problem List: (1) Leukocytosis (2) Malnutrition (3) HTN (hypertension) (4) Atrial flutter (5) Acute metabolic encephalopathy (6) Acute on chronic kidney failure (7) Elevated troponin (8) Diabetes Symptom Scale: (1) Pain 0-10 Scale: Unable to quantify Comment: Patient not answering most questions. (2) Weakness 0-10 Scale: Unable to quantify Comment: Secondary to prior CVA, left hemiparesis Pertinent Non-Medical Issues Psychosocial: Single. No children. Disabled. Brother, Isabela Andrews is serving as healthcare proxy decision maker per [place] statutes. Spiritual: Yazdanism caroline. Legal:Patient deemed incapacitated per psychiatry to make his own health care decisions, uncertain if he will regain capacity. Single. No children. Mother in a half-way with underlying schizophrenia, not capacitated herself. Father . 2 sisters and one brother. 2 sistersLizeth and Alejandrina do not wish to serve as healthcare proxy decision makers. Therefore, healthcare proxy decision-making will fall to the patient's brother,Isabela Andrews, he is willing to serve in this role. Ethical issues impacting care: no known concerns at this time. . Important Contacts * Isabela Andrews, brother/HCP: [phone] * Christy Colon, ex sister in law (Dalton ex- - who pt trusts): [phone] * Alta Andrews, sister opted out of HCP decision-making and [phone] * Alejandrina sifuentes, sister, opted out of HCP decision [phone] * Kylee Kendall, mother, incapacitated, in SNF . Prognosis Mr. Andrews is a 56-year-old male with long history of noncompliance, refusing medication, questionable underlying psychiatric disease, admitted with acute on chronic renal failure, coronary artery disease, atrial fib/flutter refusing medications. Patient remains high risk for repeat hospitalization, further decline or even . Uncertain if patient has underlying psychiatric disease if this was treated would he be more readily open to taking medications. Will attempt to discuss with psychiatry. Family feels patient has had psychiatric issues since he was a child that were never diagnosed. . Code Status: Full Code Plan * Decision Maker: Patient deemed incapacitated per psychiatry to make his own health care decisions, uncertain if he will regain capacity. Single. No children. Mother in a half-way with underlying schizophrenia, not capacitated herself. Father . 2 sisters and one brother. 2 sistersLizeth and Alejandrina do not wish to serve as healthcare proxy decision makers. Therefore, healthcare proxy decision-making will fall to the patient's brother, Yareli Andrews, he is willing to serve in this role. * FULL CODE - DNR revoked by Yareli (HCP) on 01/23/17. * Palliative care spoke with BrotherYareli via phone to provide update on clinical change, he is coming to hospital. Desires continued aggressive care, including dialysis and forced medications if necessary. * SYMPTOMS: Pain: denies pain during my visit. Weakness: debility due to prior stroke. * Palliative care will continue to follow throughout hospital course to assist with symptom management and clarification of goals as needed. . (Dariana Stephen) Attestation To help prompt me to consider important information that might be impacting today's encounter and assessment, information from prior notes written by myself or my colleagues may have been "brought forward" into today's note. My signature on this note, however, is an attestation that I personally performed the exam, history, and/or decision-making noted today, and, unless otherwise indicated, the interactions with patient, family, and staff as well as the review of records all occurred today. I also attest that the listed assessment and stated plan reflect my best clinical judgment today based on the combination of historical information, prior notes, and today's exam/ interactions. When time spent is documented, it refers only to time spent today by the signer, or if indicated, combined time spent today by collaborating physician/nurse practitioner. (Dariana Stephen) Collaborating MD Comments Patient on my visit is lethargic, alert. He state he has pain, "left shoulder, arm." He is unable to quantify or characterized. CONSTITUTIONAL/GENERAL: This is an adequately nourished patient, overall lethargic TUBES/LINES/DRAINS: PIV, condom catheter. SKIN: Skin temperature appropriate. Not diaphoretic. CARDIOVASCULAR: tachycardic, Irregular, atrial fibrillation with RVR on telemetry. RESPIRATORY/CHEST: Labored respirations,at times. . Thick white sputum noted with cough. Scattered course breath sounds. GASTROINTESTINAL: Abdomen soft, non-tender, nondistended. No guarding. Bowel sounds present. GENITOURINARY: Without palpable bladder distension. Catheter in place. 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 Left upper extremity edema, new. NEUROLOGICAL: lethargic, arousable, answers simple questions. PSYCHIATRIC: lethargic. Spent time with pt's brother Isabela, and Isabela's . Review current labs, and pt clinical situations. Spoke about the enormous challenges he faces, given his multiple comorbidities including sepsis, A-fib, renal disease, and possible dvt. Talked about quality of life, review the process of cpr and the trauma that can ensue. I answer question about herbal medicine and alternative therapy. I told them that it is not available, but base on my limited knowledge of alternative therapies, they usually work gradually, and pt's decline is too fast for many of those things to work. Family is apprecitive of visit, they would like to meet with GET Gann once she is done with meeting. I inform them to think and reconsider code status. Family amenable for me to provide pain medicine, beyond aspirin and tylenol., and I told them I will clarify with attending physician. Agree with a/p of GET. Attestation To help prompt me to consider important information that might be impacting today's encounter and assessment, information from prior notes written by myself or my colleagues may have been "brought forward" into today's note. My signature on this note, however, is an attestation that I personally performed the exam, history, and/or decision-making noted today, and, unless otherwise indicated, the interactions with patient, family, and staff as well as the review of records all occurred today. I also attest that the listed assessment and stated plan reflect my best clinical judgment today based on the combination of historical information, prior notes, and today's exam/ interactions. When time spent is documented, it refers only to time spent today by the signer, or if indicated, combined time spent today by collaborating physician/nurse practitioner. (Reinaldo Escamilla MD) Dariana Stephen Jan 23, 2017 11:40 Reinaldo Escamilla MD Jan 23, 2017 14:38
--- NOTE | 2017-01-23 11:47 | HHI.NPPN ---
Subjective History of Present Illness 56-year-old male with past medical history of chronic kidney disease, diabetes mellitus, history of cerebrovascular accident with hemiparesis, ischemic heart disease, hypertension, atrial fibrillation who came to the hospital with generalized weakness and dizziness. I was called to see the patient because of very high BUN and creatinine, metabolic acidosis and hyperkalemia. The patient has known history of chronic kidney disease and his baseline creatinine seems to me in the range of 1.6 to 2.2. Additional Remarks Patient is tired Review of Systems General Constitutional: Fatigue Cardiovascular Cardiac: RODRÍGUEZ Objective Data Data Vital Signs Date Time Temp Pulse Resp B/P (MAP) Pulse Ox O2 Delivery O2 Flow Rate FiO2 01/23/17 11:37 160 125/60 01/23/17 09:21 97 Nasal Cannula 4.00 01/23/17 06:00 127 01/23/17 04:00 98.4 134 32 138/84 (102) 96 01/23/17 04:00 134 01/23/17 02:00 119 01/23/17 00:00 102.0 103 31 152/101 (118) 97 01/23/17 00:00 103 01/22/17 22:00 112 01/22/17 21:52 96 Nasal Cannula 2.00 01/22/17 20:00 110 01/22/17 20:00 102.6 110 33 125/68 (87) 92 01/22/17 14:00 110 01/22/17 12:00 110 01/22/17 12:00 99.4 120 20 123/69 (87) 96 -: 01/23/17 0752 01/23/17 0325 Microbiology 01/23/17 Aerobic Blood Culture, Received Pending 01/23/17 Anaerobic Blood Culture, Received Pending 01/23/17 Aerobic Blood Culture, Received Pending 01/23/17 Anaerobic Blood Culture, Received Pending Physical Exam General Appearance: No Acute Distress, Comfortable, Anxious Throat Throat Exam: Oral Mucosa Daykin & Moist Pulmonary Resp Exam: Breath Sounds Equal, No Distress, Rhonchi, Decreased Bases, Diminished Breath Sounds Cardiology CV Exam: Arrhythmia Gastrointestinal/Abdomen GI Exam: Soft, Non-Tender, Bowel Sounds Present Extremeties Extremities Exam: Trace Edema Neurologic Neuro Exam: Alert, Awake Assessment/Plan Assessment Summary: ABNER/Acute Renal Failure, CKD Stage III Electrolyte Assessment: Hyperkalemia, Hypocalcemia, Metabolic Acidosis Problem List: (1) History of CVA (cerebrovascular accident) ICD Codes: Z86.73 - Personal history of transient ischemic attack (TIA), and cerebral infarction without residual deficits Status: Chronic (2) HTN (hypertension) ICD Codes: I10 - Essential (primary) hypertension Status: Chronic (3) Diabetes ICD Codes: E11.9 - Type 2 diabetes mellitus without complications Status: Acute (4) Metabolic acidemia ICD Codes: E87.2 - Acidosis (5) Hyperkalemia ICD Codes: E87.5 - Hyperkalemia Status: Acute (6) Acute renal failure ICD Codes: N17.9 - Acute kidney failure, unspecified Status: Acute Plan Patient has chronic kidney disease and develop ABNER. Also had metabolic acidosis and Hyperkalemia. Patient has HD 1 session then ARF resolved ATN resolving Cr 2.2 A fib RVR cardiology following replace Mg/Calcium febrile gram pos in blood given Vancomycin had infused fluids yesterday by Nurse, follow INR INR 2.6 Na 136 change IVF to 1/2 NS at 84 cc/hr left arm swollen US ordered Problem Qualifiers (1) HTN (hypertension): Qualified Codes: I10 - Essential (primary) hypertension (2) Diabetes: (3) Acute renal failure: Qualified Codes: N17.9 - Acute kidney failure, unspecified Parth Ruiz MD Jan 23, 2017 11:47
[2017-01-23] MEDS ORDERED: CALCIUM GLUCONATE 10% 1 GM/10 ML VIAL IV PUSH ONE (12:00)
--- NOTE | 2017-01-23 12:15 | EKG ---
Date Performed: 01/23/2017 Time Performed: 08:17:56 PTAGE: 56 years EKG: ATRIAL FIBRILLATION WITH RAPID VENTRICULAR RESPONSE POSSIBLE RIGHT VENTRICULAR CONDUCTION D ELAY ST DEVIATION AND MODERATE T-WAVE ABNORMALITY, CONSIDER LATERAL ISCHEMIA Compared to previous tra cing ventricular response to the atrial fibrillation/flutter has increased, diffuse T wave changes re main ABNORMAL ECG PREVIOUS TRACING : 01/10/2017 16.07 DOCTOR: Chirag Vasquez Interpretating Date/Time 01/23/2017 12:14:14
[2017-01-23] MEDS: SODIUM CHLOR 0.45% 1000 ML INJ 1,000 ML IV SCH (12:55)
[2017-01-23] MEDS ORDERED: MAGNESIUM SULFATE 1 GM PREMIX 100 ML IV ONE (13:00)
--- NOTE | 2017-01-23 13:04 | PD.CONS ---
History of Present Illness Service Infectious disease Consult Requested By Dr. Omer Reason for Consult Evaluate patient with fever, pneumonia Primary Care Physician Indiana Frey MD Diagnoses: History of Present Illness Patient seen and examined. Records reviewed. Is a 56-year-old male with past medical history significant for chronic kidney disease baseline creatinine 1.8-2, type 2 diabetes, history of CVA with residual left patient is a 56-year-old male, admitted to the hospital complaining of generalized weakness and dizziness for about 1 week. He apparently lives in a alf and walks with a cane, and has left-sided weakness. There is mention that he had fallen a couple times due to the weakness. There is also mention that he was not having enough by mouth intake, as well as some diarrhea. He denies any abdominal pain, any nausea or vomiting. On initial presentation patient was found to be in atrial flutter with RVR. He also has significant acidosis, and has an elevated potassium and creatinine. Patient was seen by cardiology, and his echo showed normal EF. Patient also was seen by renal, and underwent emergency hemodialysis. His hemodynamics stabilized, and the hemodialysis has been stopped. He has good urine output. Patient has been refusing a lot of his treatment. His had some problem with nausea and vomiting. He has had on and off fevers which are low- grade, however in the last probably 4 days, his fevers have been more persistent. He is complaining of pain on the right side of his trunk. There is also mention that his left upper extremity is swollen. Patient has no central line. He has a condom catheter. Chest x-ray has shown a similar opacities bilaterally. Patient was started on antibiotics, and currently on AZT mycin, cefepime, and vancomycin. Infectious disease consultation has been requested to evaluate the patient. Review of Systems Constitutional: COMPLAINS OF: Fever, Chills Eyes: DENIES: Eye pain Ears, nose, mouth, throat: DENIES: Nasal discharge, Oral lesions, Throat pain, Ear Pain Respiratory: DENIES: Cough, Shortness of breath Cardiovascular: DENIES: Chest pain Gastrointestinal: COMPLAINS OF: Abdominal pain, Nausea, Vomiting, DENIES: Diarrhea Genitourinary: COMPLAINS OF: Urinary incontinence Musculoskeletal: COMPLAINS OF: Joint pain, Back pain Integumentary: DENIES: Rash Neurologic: COMPLAINS OF: Localized weakness Psychiatric: COMPLAINS OF: Anxiety Past Family Social History Allergies: Coded Allergies: No Known Allergies (Unverified , 01/07/17) Past Medical History Chronic kidney disease Type 2 diabetes Hypertension Dyslipidemia Previous stroke, with residual L weakness Atrial fibrillation/flutter CAD History of PUD Past Surgical History Throat and arm surgery Reported Medications I attest that I obtained, updated or reviewed the home and current medications. Reported Meds & Active Scripts Active Tylenol (Acetaminophen) 325 Mg Tab 650 Mg PO Q6H PRN Lisinopril 5 Mg Tab 5 Mg PO DAILY Atorvastatin (Atorvastatin Calcium) 80 Mg Tab 80 Mg PO HS Gabapentin 300 Mg Cap 300 Mg PO BID Glimepiride 4 Mg Tab 4 Mg PO DAILY Coreg (Carvedilol) 12.5 Mg Tab 12.5 Mg PO Q12HR 30 Days Reported Proair Hfa 8.5 GM Inh (Albuterol Sulfate) 90 Mcg/Act Aer 2 Puff INH Q4-6H PRN 108 mcg/actuation Nitroglycerin SL (Nitroglycerin) 0.4 Mg Subl 0.4 Mg SL DIRECTED PRN ONE TABLET UNDER THE TONGUE NEEDED FOR CHEST PAIN, MAY REPEAT EVERY FIVE MINUTES FOR A TOTAL OF 3 DOSES OR CALL 911 IF NO RELIEF Loperamide (Loperamide HCl) 2 Mg Cap 2 Mg PO DIRECTED PRN One capsule after each loose stool. Not to exceed 8 capsules per day. Januvia (Sitagliptin Phosphate) 25 Mg Tab 50 Mg PO DAILY Active Ordered Medications I attest that I obtained, updated or reviewed the home and current medications. Current Medications Medications (Trade) Dose Ordered Sig/Mansi Route Start Time Stop Time Status Last Admin (Tylenol) 650 mg Q6H PRN PO 01/10/17 17:00 01/21/17 18:11 (Proair Hfa Inh) 2 puff Q6H PRN INH 01/10/17 17:00 (Lipitor) 80 mg HS PO 01/10/17 21:00 01/22/17 21:07 (Nitrostat Sl) 0.4 mg Q3H PRN SL 01/10/17 17:00 (Ecotrin Ec) 81 mg DAILY PO 01/10/17 17:00 01/23/17 09:57 (NS Flush) 2 ml BID IV FLUSH 01/10/17 21:00 01/23/17 09:56 Miscellaneous Information 1 Q361D XX 10/21/17 17:15 (Chlorhexidine 2% Cloth) Taper DAILY@04 TOP 01/11/17 04:00 01/07/18 03:59 01/17/17 01:29 (Chlorhexidine 2% Cloth) 3 pack UNSCH PRN TOP 01/10/17 17:15 (Afia-Colace) 1 tab BID PO 01/10/17 21:00 01/23/17 09:57 (Milk Of Magnesia Liq) 30 ml Q12H PRN PO 01/10/17 17:15 (Senokot) 17.2 mg Q12H PRN PO 01/10/17 17:15 (Dulcolax Supp) 10 mg DAILY PRN RECTAL 01/10/17 17:15 (Lactulose Liq) 30 ml DAILY PRN PO 01/10/17 17:15 Sodium Chloride 1,000 ml @ 0 mls/hr Q0M PRN OTHER 01/10/17 17:47 01/10/17 22:05 (Heparin Inj) 8,000 units UNSCH PRN IV FLUSH 01/10/17 18:00 Sodium Chloride 1,000 ml @ 200 mls/hr Q5H PRN IV 01/10/17 17:47 Sodium Chloride 1,000 ml @ 0 mls/hr Q0M PRN OTHER 01/10/17 17:47 (Mannitol Inj) 12.5 gm UNSCH PRN IV 01/10/17 18:00 Albumin Human 100 ml @ 60 mls/hr UNSCH PRN IV 01/10/17 18:00 (NS Flush) 5 ml UNSCH PRN IV FLUSH 01/10/17 18:00 (Heparin Inj) UNSCH PRN .XX 01/10/17 18:00 (Gentamicin (Dialysis) Inj) 20 mg UNSCH PRN OTHER 01/10/17 18:00 01/10/17 22:03 (Zofran Inj) 4 mg UNSCH PRN IV PUSH 01/10/17 18:00 01/18/17 08:51 (Tylenol) 650 mg UNSCH PRN PO 01/10/17 18:00 01/23/17 10:18 (Benadryl) 25 mg UNSCH PRN PO 01/10/17 18:00 (Nitrostat Sl) 0.4 mg UNSCH PRN SL 01/10/17 18:00 (Catapres) 0.1 mg UNSCH PRN PO 01/10/17 18:00 01/15/17 02:07 (Gelfoam 12 Mm/7 Mm Top) 1 foam UNSCH PRN TOP 01/10/17 18:00 (D50w (Vial) Inj) 50 ml UNSCH PRN IV PUSH 01/10/17 22:30 01/10/17 18:05 (Glucagon Inj) 1 mg UNSCH PRN OTHER 01/10/17 22:30 Dexmedetomidine HCl 200 mcg/ Sodium Chloride 52 ml @ 5.46 mls/hr TITRATE PRN IV 01/11/17 00:00 01/12/17 14:53 (Haldol Inj) 5 mg Q4H PRN IV 01/12/17 17:00 01/20/17 10:02 (Reglan Inj) 5 mg Q8H IV PUSH 01/15/17 10:00 01/23/17 09:57 (Apresoline Inj) 10 mg Q4H PRN IV PUSH 01/15/17 10:00 Potassium Chloride 100 ml @ 50 mls/hr Q2H IV 01/15/17 10:00 Future Hold 01/16/17 06:11 (Heparin Inj) 5,000 units UNSCH PRN IV PUSH 01/15/17 17:15 (Heparin Inj) 2,500 units UNSCH PRN IV PUSH 01/15/17 17:15 01/16/17 06:17 (Catapres-Tts 0.3 Mg Patch.7d) 1 patch Q7D T-DERMAL 01/16/17 10:00 01/16/17 14:14 Miscellaneous Information 1 Q7D T-DERMAL 01/16/17 10:00 01/16/17 10:00 (Mucinex Er) 600 mg BID PO 01/16/17 21:00 01/23/17 09:56 (Oscal) 500 mg TID PO 01/17/17 13:00 01/23/17 09:57 (K-Phos) 500 mg Q12HR PO 01/17/17 14:00 01/23/17 09:57 (SEROquel) 25 mg BID PO 01/17/17 21:00 01/23/17 09:56 (Lopressor) 50 mg Q8HR PO 01/19/17 14:00 01/22/17 21:06 (Trandate Inj) 10 mg Q4H PRN IV PUSH 01/20/17 08:30 01/20/17 17:27 Cefepime HCl 1000 mg/Sodium Chloride 100 ml @ 200 mls/hr Q12H IV 01/22/17 09:00 01/23/17 09:50 Azithromycin 250 mg/Sodium Chloride 250 ml @ 250 mls/hr Q24H IV 01/22/17 10:00 01/23/17 11:20 (Levemir Inj) 5 units Q12HR SQ 01/23/17 09:00 Pharmacy Profile Note 0 ml @ 0 mls/hr UNSCH OTHER 01/23/17 10:15 Diltiazem HCl 125 mg/Sodium Chloride 125 ml @ 5 mls/hr TITRATE PRN IV 01/23/17 12:00 01/23/17 11:37 Sodium Chloride 1,000 ml @ 84 mls/hr [id number] IV 01/23/17 12:00 01/23/17 12:55 Magnesium Sulfate/ Dextrose 100 ml @ 100 mls/hr ONCE ONCE IV 01/23/17 13:00 01/23/17 13:59 (Calcium Gluconate Inj) 1 gm ONCE ONCE IV PUSH 01/23/17 12:00 01/23/17 12:01 UNV Family History Fam Hx DM and kidney disease Social History Quit smoking 2 years ago Quit drinking 5 years ago No mention of illicit drug use Physical Exam Vital Signs Vital Signs Date Time Temp Pulse Resp B/P (MAP) Pulse Ox O2 Delivery O2 Flow Rate FiO2 01/23/17 11:37 160 125/60 01/23/17 09:21 97 Nasal Cannula 4.00 01/23/17 06:00 127 01/23/17 04:00 98.4 134 32 138/84 (102) 96 01/23/17 04:00 134 01/23/17 02:00 119 01/23/17 00:00 102.0 103 31 152/101 (118) 97 01/23/17 00:00 103 01/22/17 22:00 112 01/22/17 21:52 96 Nasal Cannula 2.00 01/22/17 20:00 110 01/22/17 20:00 102.6 110 33 125/68 (87) 92 01/22/17 14:00 110 Physical Exam GENERAL: Patient is a well-nourished, well-developed male, awake and alert, not in respiratory distress. SKIN: Warm and dry. No generalized rash, no ecchymoses and no evidence of embolic lesions. HEAD: Atraumatic. Normocephalic. No temporal wasting, or tenderness. EYES: [place] conjunctiva. No petechia or hemorrhage. Pupils equal, round and reactive to light. Extraocular movements full and intact. No scleral icterus. No injection or drainage. EARS, NOSE AND THROAT: Nose without bleeding or purulent nasal discharge. No sinus tenderness. Moist mucosa, the rest of mouth exam not done, since patient not cooperative NECK: Trachea midline. Supple and not tender, no meningeal signs. Previous vascath site looks ok, dry CARDIOVASCULAR: Tachycardic, iregular rate and rhythm. No murmurs, rubs or gallops heard RESPIRATORY: Clear to auscultation. Breath sounds equal bilaterally. No rales , wheezing or rhonchi, decreased at the bases ABDOMEN: Soft, non-tender, nondistended. Bowel sounds present and normoactive. No guarding. No rebound. No organomegaly. EXTREMITIES: LUE is swollen. No pedal edema. No calf tenderness. No joint effusion. Well perfused and warm. NEUROLOGICAL: Awake and alert. No movement in LUE, weak on LLE. Did not elicit any Babinski. PSYCHIATRIC: calm, but not always cooperative. LINE: No evidence of infection Laboratory Laboratory Tests Test 01/22/17 22:14 01/22/17 22:39 01/23/17 03:25 01/23/17 05:50 Blood Gas Puncture Site RT RADIAL LT RADIAL Blood Gas Patient Temperature 98.6 98.6 Blood Gas HCO3 26 26 Blood Gas Base Excess 2.7 2.3 Blood Gas Oxygen Saturation 89 91 Arterial Blood pH 7.48 7.49 Arterial Blood Partial Pressure CO2 35 34 Arterial Blood Partial Pressure O2 63 67 Arterial Blood Oxygen Content 12.1 13.0 Arterial Blood Carboxyhemoglobin 1.3 1.0 Arterial Blood Methemoglobin 1.3 1.3 Blood Gas Hemoglobin 9.6 10.1 Oxygen Delivery Device NASAL CANNULA NASAL CANNULA Blood Gas Liter Flow 2 4 White Blood Count 17.4 20.3 Red Blood Count 3.48 3.70 Hemoglobin 10.0 10.6 Hematocrit 29.7 31.9 Mean Corpuscular Volume 85.4 86.3 Mean Corpuscular Hemoglobin 28.8 28.6 Mean Corpuscular Hemoglobin Concent 33.8 33.1 Red Cell Distribution Width 14.6 14.5 Platelet Count 196 207 Mean Platelet Volume 10.1 9.9 Neutrophils (%) (Auto) 86.1 85.7 Lymphocytes (%) (Auto) 4.8 4.6 Monocytes (%) (Auto) 8.5 9.1 Eosinophils (%) (Auto) 0.3 0.3 Basophils (%) (Auto) 0.3 0.3 Neutrophils # (Auto) 14.9 17.4 Lymphocytes # (Auto) 0.8 0.9 Monocytes # (Auto) 1.5 1.8 Eosinophils # (Auto) 0.1 0.1 Basophils # (Auto) 0.1 0.1 CBC Comment AUTO DIFF AUTO DIFF Differential Total Cells Counted 100 100 Neutrophils % (Manual) 80 59 Band Neutrophils % 11 30 Lymphocytes % 5 6 Monocytes % 1 5 Eosinophils % 1 Basophils % 1 Neutrophils # (Manual) 16.0 18.1 Metamyelocytes 1 Nucleated Red Blood Cells 1 Differential Comment FINAL DIFF MANUAL FINAL DIFF MANUAL Toxic Granulation 1+ 1+ Dohle Bodies PRESENT PRESENT Platelet Estimate NORMAL NORMAL Platelet Morphology Comment ENLARGED ENLARGED Red Cell Morphology Comment NORMAL NORMAL Hematology Comments Prothrombin Time 31.4 29.4 Prothromb Time International Ratio 2.7 2.6 Activated Partial Thromboplast Time 44.6 35.0 Blood Urea Nitrogen 33 33 Creatinine 2.30 2.20 Random Glucose 225 176 Total Protein 6.8 6.8 Albumin 1.9 2.0 Calcium Level 7.7 7.6 Phosphorus Level 1.9 2.0 Magnesium Level 1.5 Alkaline Phosphatase 88 67 Aspartate Amino Transf (AST/SGOT) 42 55 Alanine Aminotransferase (ALT/SGPT) 26 28 Total Bilirubin 1.1 1.1 Sodium Level 136 136 Potassium Level 3.9 3.8 Chloride Level 102 101 Carbon Dioxide Level 24.2 26.9 Anion Gap 10 8 Estimat Glomerular Filtration Rate 36 38 Toxic Vacuolation PRESENT Test 01/23/17 07:52 White Blood Count 21.3 Red Blood Count 3.63 Hemoglobin 10.5 Hematocrit 31.2 Mean Corpuscular Volume 85.8 Mean Corpuscular Hemoglobin 28.8 Mean Corpuscular Hemoglobin Concent 33.5 Red Cell Distribution Width 14.7 Platelet Count 180 Mean Platelet Volume 9.8 CBC Comment AUTO DIFF Differential Total Cells Counted 100 Neutrophils % (Manual) 89 Band Neutrophils % 1 Lymphocytes % 2 Monocytes % 7 Neutrophils # (Manual) 19.2 Nucleated Red Blood Cells 2 Differential Comment FINAL DIFF MANUAL Plasma Cells 1 Platelet Estimate NORMAL Platelet Morphology Comment NORMAL Red Cell Morphology Comment NORMAL Hematology Comments Date/Time Source Procedure Growth Status 01/23/17 06:11 Blood Peripheral Aerobic Blood Culture Pending Received 01/23/17 06:11 Blood Peripheral Anaerobic Blood Culture Pending Received Result Diagram: 01/23/17 0752 01/23/17 0325 Imaging RADIOLOGY STUDIES/FILMS REVIEWED Chest X-Ray 01/21/17 0000 Signed Impressions: Service Date/Time: Saturday, January 21, 2017 22:42 - CONCLUSION: New hazy opacity in both lungs with concern for ovarian edema and congestive heart failure. Jose Espinal MD Abdomen X-Ray 01/18/17 0000 Signed Impressions: Service Date/Time: Wednesday, January 18, 2017 08:02 - CONCLUSION: No acute disease. Edward Mata MD Head CT 01/10/17 1257 Signed Impressions: Service Date/Time: Tuesday, January 10, 2017 13:32 - CONCLUSION: No acute disease. Jermaine Malone Jr., MD Renal Ultrasound 01/10/17 0000 Signed Impressions: Service Date/Time: Tuesday, January 10, 2017 17:01 - CONCLUSION: Normal examination. Jermaine Malone Jr., MD Assessment and Plan Assessment and Plan IMPRESSION Sepsis with GPC on BC, possibly Staph - had vascath placed 01/10, removed 01/15 - has LUE swelling, ?DVT - has basilar opacities, ?fluid; not coughing or congested, less likely PNA Renal failure, creatinine has improved and has good UO Previous CVA with left sided weakness Atrial fib with RVR RECOMMENDATION Follow C/S UA and C/S Continue Vanco and Cefepime Adjust Abx Follow temps Monitor progress Will determine course of Abx once work-up completed I will follow along with you Thank you for this consultation Discussed Condition With D/W RN Spoke with sister LilianKimi MD Jan 23, 2017 13:04
[2017-01-23 13:44] LABS: AUTOMATED NEUTROPHIL # 20.3 TH/MM3 (1.8-7.7); BASOPHIL # 0.1 TH/MM3 (0-0.2); BASOPHIL % 0.3 % (0.0-2.0); EOSINOPHIL # 0.1 TH/MM3 (0-0.4); EOSINOPHIL % 0.2 % (0.0-4.0); HEMATOCRIT 30.4 % (39.0-51.0); LYMPH % 4.6 % (9.0-44.0); LYMPHOCYTE # 1.1 TH/MM3 (1.0-4.8); MEAN CELL VOLUME 86.9 FL (80.0-100.0); MEAN CORPUSCULAR HEMOGLOBIN 28.3 PG (27.0-34.0); MEAN CORPUSCULAR HGB CONC 32.6 % (32.0-36.0); MONO % 7.3 % (0.0-8.0); NEUT % 87.6 % (16.0-70.0); PLATELET COUNT 220 TH/MM3 (150-450); RED CELL DISTRIBUTION WIDTH 14.6 % (11.6-17.2); WHITE BLOOD COUNT 23.1 TH/MM3 (4.0-11.0)
[2017-01-23 13:49] LABS: HEMO FLAGS AUTO DIFF
[2017-01-23 13:52] LABS: APTT (PATIENT) 41.3 SEC (24.3-30.1)
[2017-01-23] MEDS ORDERED: CALCIUM GLUCONATE INJ 1 GM in SODIUM CHLORIDE 0.9% INJ 100 ML IV ONE (14:00)
[2017-01-23 14:32] LABS: SCAN/DIFF AUTO DIFF CONFIRMED
[2017-01-23 16:33] LABS: BACTERIA, URINE FEW /hpf; BLOOD, URINE MOD (NEG); COMMENT (UR) CULTURE INDICATED; CULTURE IF INDICATED CULTURE INDICATED; GLUCOSE,URINE NEG (NEG); KETONE, URINE 10 mg/dL (NEG); NITRITE,URINE NEG (NEG); SQUAMOUS EPITHELIAL CELL URINE 1 /hpf (0-5); URINE COLOR YELLOW (YELLW/STRAW)
--- NOTE | 2017-01-23 17:41 | HHI.HCPN ---
Call from brother to report he and his sisters are returning to unit. He asked if I could meet with them. Medical update provided including A. 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 Explained concern for further decline. Discussed CODE status again, for now family desires FULL CODE. Isabela (brother/HCP) wants to think about it again overnight. He will notify team if he elects to change code status. During the visit, patient awakens and recognizes family. He is reminiscing and telling family how much he loves them. Family has palliative care number should they have any additional questions or concerns. . Dariana Stephen Jan 23, 2017 17:41
--- NOTE | 2017-01-23 19:30 | RADRPT ---
EXAM DATE/TIME: 01/23/2017 17:45 [facility] COMPARISON: No previous studies available for comparison. INDICATIONS : Left arm swelling. MEDICAL HISTORY : Hypertension. Cerebrovascular accident. Myocardial infarction. Coronary artery disease. Atrial f ibrillation. Diabetes. SURGICAL HISTORY : Arm surgery. Throat surgery. ENCOUNTER: Initial ACUITY: 1 day PAIN SCORE: 0/10 LOCATION: Left arm. FINDINGS: There is extensive thrombus in the internal jugular vein. There is a small amount of nonocclusive thr ombus in the subclavian vein and the basilic vein. The axillary vein and brachial veins are mostly pa tent. The ulnar vein is patent. CONCLUSION: Thrombus identified within the internal jugular, subclavian, and the basilic veins. Jeyson Luciano MD on January 23, 2017 at 19:27 Board Certified Radiologist. This report was verified electronically.
--- NOTE | 2017-01-23 19:47 | PD.CONS ---
HPI Service Critical Care Medicine Consult Requested By Hospitalist Services Reason for Consult management of hemodynamics. Primary Care Physician Indiana Frey MD History of Present Illness This is a 56-year-old male with past medical history of CKD and prior stroke with significant residual deficits who is been in the ICU for some time with persistent encephalopathy, acute on chronic kidney injury, and atrial fibrillation with rapid ventricular response. Over the last 24 hours his heart rate is increased. His left upper extremity is swollen. In he is following commands less vigorously. He continues to have low-grade fevers. ID was consulted today. Critical care medicine was consulted for his persistent tachycardia and concern over his airway. I evaluated the patient and he was to altered to participate in history. The remainder the history is obtained from the medical record. Patient does appear to be maintaining his airway and has an adequate cough and gag. Patient does have A. fib with rapid ventricular response which was previously controlled with Cardizem. Critical care medicine is consulted to evaluate and manage his hemodynamics. Review of Systems ROS Limitations: Clinical Condition, Altered Mental Status Past Family Social History Allergies: Coded Allergies: No Known Allergies (Unverified , 01/07/17) Past Medical History Chronic kidney disease Type 2 diabetes Hypertension Dyslipidemia Previous stroke, with residual L weakness Atrial fibrillation/flutter CAD History of PUD Past Surgical History Throat and arm surgery Reported Medications Tylenol (Acetaminophen) 325 Mg Tab 650 Mg PO Q6H PRN Lisinopril 5 Mg Tab 5 Mg PO DAILY Atorvastatin (Atorvastatin Calcium) 80 Mg Tab 80 Mg PO HS Gabapentin 300 Mg Cap 300 Mg PO BID Glimepiride 4 Mg Tab 4 Mg PO DAILY Coreg (Carvedilol) 12.5 Mg Tab 12.5 Mg PO Q12HR 30 Days Proair Hfa 8.5 GM Inh (Albuterol Sulfate) 90 Mcg/Act Aer 2 Puff INH Q4-6H PRN 108 mcg/actuation Nitroglycerin SL (Nitroglycerin) 0.4 Mg Subl 0.4 Mg SL DIRECTED PRN ONE TABLET UNDER THE TONGUE NEEDED FOR CHEST PAIN, MAY REPEAT EVERY FIVE MINUTES FOR A TOTAL OF 3 DOSES OR CALL 911 IF NO RELIEF Loperamide (Loperamide HCl) 2 Mg Cap 2 Mg PO DIRECTED PRN One capsule after each loose stool. Not to exceed 8 capsules per day. Januvia (Sitagliptin Phosphate) 25 Mg Tab 50 Mg PO DAILY Active Ordered Medications See MAR Family History Fam Hx DM and kidney disease Social History Quit smoking 2 years ago Quit drinking 5 years ago No mention of illicit drug use Physical Exam Vital Signs Vital Signs Date Time Temp Pulse Resp B/P (MAP) Pulse Ox O2 Delivery O2 Flow Rate FiO2 01/23/17 18:30 107 01/23/17 18:22 110 88/52 01/23/17 18:00 118 01/23/17 17:15 129 27 133/77 (95) 96 01/23/17 17:00 140 01/23/17 17:00 140 24 140/74 (96) 95 01/23/17 16:45 129 24 132/76 (94) 97 01/23/17 16:30 132 24 141/82 (101) 97 01/23/17 16:15 127 28 133/76 (95) 95 01/23/17 16:12 98.8 136 36 110/91 (97) 96 01/23/17 16:00 135 01/23/17 15:00 129 01/23/17 15:00 129 25 134/77 (96) 96 01/23/17 14:00 145 29 129/89 (102) 95 01/23/17 14:00 145 129/89 01/23/17 14:00 145 29 129/89 (102) 95 01/23/17 14:00 145 01/23/17 13:01 141 25 132/68 (89) 100 01/23/17 13:00 143 01/23/17 12:37 144 165/69 01/23/17 12:00 100.9 144 27 165/69 (101) 96 01/23/17 12:00 144 01/23/17 11:37 160 125/60 01/23/17 11:00 140 30 126/60 (82) 99 01/23/17 11:00 140 01/23/17 10:00 140 33 152/81 (104) 98 01/23/17 10:00 140 01/23/17 09:21 97 Nasal Cannula 4.00 01/23/17 09:00 135 01/23/17 09:00 135 30 139/84 (102) 99 01/23/17 08:00 134 01/23/17 08:00 103.0 134 31 141/91 (108) 99 01/23/17 07:00 127 01/23/17 06:00 127 01/23/17 04:00 98.4 134 32 138/84 (102) 96 01/23/17 04:00 134 01/23/17 02:00 119 01/23/17 00:00 102.0 103 31 152/101 (118) 97 01/23/17 00:00 103 01/22/17 22:00 112 01/22/17 21:52 96 Nasal Cannula 2.00 01/22/17 20:00 110 01/22/17 20:00 102.6 110 33 125/68 (87) 92 Physical Exam GENERAL: patient slightly confused but arousable. HEAD: Normocephalic. Atraumatic. EYES: Pupils equal and round. No scleral icterus. ENT: No nasal bleeding or discharge. Mucous membranes moist NECK: Trachea midline. CARDIOVASCULAR: tachycardic, regular rhythm. Telemetry shows atrial flutter with variable block RESPIRATORY: Clear to auscultation. Breath sounds equal bilaterally. GASTROINTESTINAL: Abdomen soft. Nontender. MUSCULOSKELETAL: No obvious deformities. NEUROLOGICAL: slightly confused. RASS -2. briskly purposeful although only intermittently following commands. protecting airway. Laboratory Laboratory Tests Test 01/22/17 22:14 01/22/17 22:39 01/23/17 03:25 01/23/17 05:50 Blood Gas Puncture Site RT RADIAL LT RADIAL Blood Gas Patient Temperature 98.6 98.6 Blood Gas HCO3 26 26 Blood Gas Base Excess 2.7 2.3 Blood Gas Oxygen Saturation 89 91 Arterial Blood pH 7.48 7.49 Arterial Blood Partial Pressure CO2 35 34 Arterial Blood Partial Pressure O2 63 67 Arterial Blood Oxygen Content 12.1 13.0 Arterial Blood Carboxyhemoglobin 1.3 1.0 Arterial Blood Methemoglobin 1.3 1.3 Blood Gas Hemoglobin 9.6 10.1 Oxygen Delivery Device NASAL CANNULA NASAL CANNULA Blood Gas Liter Flow 2 4 White Blood Count 17.4 20.3 Red Blood Count 3.48 3.70 Hemoglobin 10.0 10.6 Hematocrit 29.7 31.9 Mean Corpuscular Volume 85.4 86.3 Mean Corpuscular Hemoglobin 28.8 28.6 Mean Corpuscular Hemoglobin Concent 33.8 33.1 Red Cell Distribution Width 14.6 14.5 Platelet Count 196 207 Mean Platelet Volume 10.1 9.9 Neutrophils (%) (Auto) 86.1 85.7 Lymphocytes (%) (Auto) 4.8 4.6 Monocytes (%) (Auto) 8.5 9.1 Eosinophils (%) (Auto) 0.3 0.3 Basophils (%) (Auto) 0.3 0.3 Neutrophils # (Auto) 14.9 17.4 Lymphocytes # (Auto) 0.8 0.9 Monocytes # (Auto) 1.5 1.8 Eosinophils # (Auto) 0.1 0.1 Basophils # (Auto) 0.1 0.1 CBC Comment AUTO DIFF AUTO DIFF Differential Total Cells Counted 100 100 Neutrophils % (Manual) 80 59 Band Neutrophils % 11 30 Lymphocytes % 5 6 Monocytes % 1 5 Eosinophils % 1 Basophils % 1 Neutrophils # (Manual) 16.0 18.1 Metamyelocytes 1 Nucleated Red Blood Cells 1 Differential Comment FINAL DIFF MANUAL FINAL DIFF MANUAL Toxic Granulation 1+ 1+ Dohle Bodies PRESENT PRESENT Platelet Estimate NORMAL NORMAL Platelet Morphology Comment ENLARGED ENLARGED Red Cell Morphology Comment NORMAL NORMAL Hematology Comments Prothrombin Time 31.4 29.4 Prothromb Time International Ratio 2.7 2.6 Activated Partial Thromboplast Time 44.6 35.0 Blood Urea Nitrogen 33 33 Creatinine 2.30 2.20 Random Glucose 225 176 Total Protein 6.8 6.8 Albumin 1.9 2.0 Calcium Level 7.7 7.6 Phosphorus Level 1.9 2.0 Magnesium Level 1.5 Alkaline Phosphatase 88 67 Aspartate Amino Transf (AST/SGOT) 42 55 Alanine Aminotransferase (ALT/SGPT) 26 28 Total Bilirubin 1.1 1.1 Sodium Level 136 136 Potassium Level 3.9 3.8 Chloride Level 102 101 Carbon Dioxide Level 24.2 26.9 Anion Gap 10 8 Estimat Glomerular Filtration Rate 36 38 Toxic Vacuolation PRESENT Test 01/23/17 07:52 01/23/17 13:12 01/23/17 14:26 01/23/17 18:53 White Blood Count 21.3 23.1 Red Blood Count 3.63 3.50 Hemoglobin 10.5 9.9 Hematocrit 31.2 30.4 Mean Corpuscular Volume 85.8 86.9 Mean Corpuscular Hemoglobin 28.8 28.3 Mean Corpuscular Hemoglobin Concent 33.5 32.6 Red Cell Distribution Width 14.7 14.6 Platelet Count 180 220 Mean Platelet Volume 9.8 9.8 CBC Comment AUTO DIFF AUTO DIFF Differential Total Cells Counted 100 Neutrophils % (Manual) 89 Band Neutrophils % 1 Lymphocytes % 2 Monocytes % 7 Neutrophils # (Manual) 19.2 Nucleated Red Blood Cells 2 Differential Comment FINAL DIFF MANUAL AUTO DIFF CONFIRMED Plasma Cells 1 Platelet Estimate NORMAL Platelet Morphology Comment NORMAL Red Cell Morphology Comment NORMAL Hematology Comments Neutrophils (%) (Auto) 87.6 Lymphocytes (%) (Auto) 4.6 Monocytes (%) (Auto) 7.3 Eosinophils (%) (Auto) 0.2 Basophils (%) (Auto) 0.3 Neutrophils # (Auto) 20.3 Lymphocytes # (Auto) 1.1 Monocytes # (Auto) 1.7 Eosinophils # (Auto) 0.1 Basophils # (Auto) 0.1 Activated Partial Thromboplast Time 41.3 Urine Color YELLOW Urine Turbidity HAZY Urine pH 6.0 Urine Specific [place] 1.015 Urine Protein 100 Urine Glucose (UA) NEG Urine Ketones 10 Urine Occult Blood MOD Urine Nitrite NEG Urine Bilirubin NEG Urine Urobilinogen LESS THAN 2.0 Urine Leukocyte Esterase LARGE Urine RBC LESS THAN 1 Urine WBC 158 Urine WBC Clumps FEW Urine Squamous Epithelial Cells 1 Urine Bacteria FEW Microscopic Urinalysis Comment CULTURE INDICATED Date/Time Source Procedure Growth Status 01/23/17 06:11 Blood Peripheral Aerobic Blood Culture Pending Received 01/23/17 06:11 Blood Peripheral Anaerobic Blood Culture Pending Received 01/23/17 14:26 Urine Clean Catch Urine Culture Pending Received Result Diagram: 01/23/17 1312 01/23/17 0325 Imaging Last Impressions Chest X-Ray 01/21/17 0000 Signed Impressions: Service Date/Time: Saturday, January 21, 2017 22:42 - CONCLUSION: New hazy opacity in both lungs with concern for ovarian edema and congestive heart failure. Jose Espinal MD Abdomen X-Ray 01/18/17 0000 Signed Impressions: Service Date/Time: Wednesday, January 18, 2017 08:02 - CONCLUSION: No acute disease. Edward Mata MD Head CT 01/10/17 1257 Signed Impressions: Service Date/Time: Tuesday, January 10, 2017 13:32 - CONCLUSION: No acute disease. Jermaine Malone Jr., MD Renal Ultrasound 01/10/17 0000 Signed Impressions: Service Date/Time: Tuesday, January 10, 2017 17:01 - CONCLUSION: Normal examination. Jermaine Malone Jr., MD Assessment and Plan Assessment and Plan NEURO: Acute metabolic encephalopathy Agitated Delirium History of previous CVA with left hemiparesis - Delirium due to acute illness. - frequent neuro checks. currently protecting airway. RESP: Probable COPD Past Tobacco abuse - Nasal cannula oxygen, protecting airway - DuoNeb every 6 hours and when necessary CV: Atrial flutter with rapid ventricular response NSTEMI History of coronary artery disease - restart cardizem drip. - 2 D Echo normal EF. no RWMA. PASP 47 GI: - renal diet as tolerated. - Continue PPI : Acute on chronic kidney failure/ABNER Hyperkalemia Severe metabolic acidosis - resolved. - Monitor renal function closely. Montelongo catheter. ID: Sepsis Leukocytosis - f/u LUE dopplers - ID consulted - f/u cultures - abx per ID HEME: - Monitor CBC, CMP, coags ENDO: Type 2 diabetes Hyperglycemia Dyslipidemia - Sliding-scale insulin PROPH: - Bilateral lower extremity SCDs. Heparin IV DCd, protonix 40 mg IV q12 LINES: - Utilize peripheral IVs Code Status Full Code Alex Ventura MD Jan 23, 2017 19:47
[2017-01-23 20:14] LABS: AUTOMATED NEUTROPHIL # 19.5 TH/MM3 (1.8-7.7); BASOPHIL # 0.1 TH/MM3 (0-0.2); BASOPHIL % 0.4 % (0.0-2.0); EOSINOPHIL # 0.1 TH/MM3 (0-0.4); EOSINOPHIL % 0.2 % (0.0-4.0); HEMATOCRIT 29.9 % (39.0-51.0); HEMO FLAGS DIFF FINAL; LYMPH % 4.6 % (9.0-44.0); MEAN CELL VOLUME 87.7 FL (80.0-100.0); MEAN CORPUSCULAR HEMOGLOBIN 28.4 PG (27.0-34.0); MEAN CORPUSCULAR HGB CONC 32.4 % (32.0-36.0); MONO % 6.2 % (0.0-8.0); NEUT % 88.6 % (16.0-70.0); PLATELET COUNT 216 TH/MM3 (150-450); RED BLOOD COUNT 3.41 MIL/MM3 (4.50-5.90); RED CELL DISTRIBUTION WIDTH 15.1 % (11.6-17.2)
[2017-01-23] MEDS: ATORVASTATIN 80 MG TAB PO SCH (21:41)
[2017-01-23 23:10] LABS: AUTOMATED NEUTROPHIL # 20.3 TH/MM3 (1.8-7.7); BASOPHIL # 0.1 TH/MM3 (0-0.2); BASOPHIL % 0.3 % (0.0-2.0); EOSINOPHIL # 0.1 TH/MM3 (0-0.4); EOSINOPHIL % 0.2 % (0.0-4.0); LYMPHOCYTE # 0.7 TH/MM3 (1.0-4.8); MEAN CELL VOLUME 86.7 FL (80.0-100.0); MEAN CORPUSCULAR HEMOGLOBIN 28.2 PG (27.0-34.0); MEAN CORPUSCULAR HGB CONC 32.6 % (32.0-36.0); MONO % 5.9 % (0.0-8.0); NEUT % 90.6 % (16.0-70.0); PLATELET COUNT 230 TH/MM3 (150-450); RED BLOOD COUNT 3.35 MIL/MM3 (4.50-5.90); RED CELL DISTRIBUTION WIDTH 14.3 % (11.6-17.2); WHITE BLOOD COUNT 22.4 TH/MM3 (4.0-11.0)
[2017-01-23 23:11] LABS: HEMO FLAGS AUTO DIFF
[2017-01-24] VITALS (35 sets, daily range): BP systolic 91–158; BP diastolic 56–81; PULSE 72–126; RESP 18–31; TEMP 98.2–101.3; O2SAT 93–98
[2017-01-24 00:26] LABS: BANDS 3 % (0-6); EOSINOPHILS 1 % (0-4); NEUTROPHIL # MANUAL DIFF 20.6 TH/MM3 (1.8-7.7); POLYS (SEG NEUTROPHILS) 89 % (16-70); SCAN/DIFF FINAL DIFF MANUAL; TOXIC VACUOLATION PRESENT (NONE SEEN); WBC DIFF SAMPLE 100
[2017-01-24 00:27] LABS: PLATELET ESTIMATE SMEAR NORMAL (NORMAL); PLATELET MORPHOLOGY NORMAL (NORMAL)
[2017-01-24] MEDS: ACETAMINOPHEN 325 MG TAB PO PRN (01:28)
[2017-01-24] MEDS: METOCLOPRAMIDE HCL 10 MG/2 ML VIAL IV PUSH SCH ×3 (01:28→16:45)
[2017-01-24] MEDS: SODIUM CHLOR 0.45% 1000 ML INJ 1,000 ML IV SCH ×3 (03:42→23:57)
[2017-01-24] MEDS: CHLORHEXIDINE GLUCONATE 2 % 1 PACK (2 CLOTHS) TOP SCH (03:42)
[2017-01-24] MEDS: HYDROmorphone HCL PF 2 MG/ML VIAL IV PUSH PRN ×2 (05:39→20:19)
[2017-01-24] MEDS: METOPROLOL TARTRATE 50 MG TAB PO SCH ×3 (05:39→22:25)
[2017-01-24 06:42] LABS: BICARBONATE 25.3 MEQ/L (21.0-32.0); MAGNESIUM 1.7 MG/DL (1.5-2.5); POTASSIUM 3.9 MEQ/L (3.5-5.1)
[2017-01-24] MEDS: INSULIN DETEMIR 100 UNITS/ML VIAL SQ SCH ×2 (09:00→19:37)
[2017-01-24] MEDS: guaiFENesin E.R. 600 MG TAB PO SCH ×2 (09:09→19:39)
[2017-01-24] MEDS: QUEtiapine FUMARATE 25 MG TAB PO SCH ×2 (09:09→19:40)
[2017-01-24] MEDS: ASPIRIN EC 81 MG TABEC PO SCH (09:09)
[2017-01-24] MEDS: CEFEPIME INJ 1,000 MG in SODIUM CHLORIDE 0.9% INJ 100 ML IV SCH ×2 (09:09→19:39)
[2017-01-24] MEDS: CALCIUM CARBONATE 1.25 GM (CA 500 MG) TAB PO SCH ×3 (09:09→16:45)
[2017-01-24] MEDS: POTASSIUM PHOSPHATE MONOBASIC 500 MG TAB PO SCH ×2 (09:09→19:40)
[2017-01-24] MEDS: DOCUSATE SODIUM 50 MG/SENNA 8.6 MG TAB PO SCH ×2 (09:10→19:40)
[2017-01-24] MEDS: SODIUM CHLORIDE 0.9% FLUSH 10 ML FLUSH IV FLUSH SCH ×2 (09:10→19:41)
[2017-01-24] MEDS: DILTIAZEM 125 MG/NS 100 ML IV PRN ×2 (10:25)
[2017-01-24 11:00] LABS: APTT (PATIENT) 41.2 SEC (24.3-30.1); INTERNATIONAL NORMALIZED RATIO 1.8 RATIO; PROTHROMBIN TIME - PATIENT 20.8 SEC (9.8-11.6)
--- NOTE | 2017-01-24 11:55 | HHI.CCPN ---
Subjective Remarks/Hospital Course Is a 56-year-old male with past medical history significant for chronic kidney disease baseline creatinine 1.8-2, type 2 diabetes, history of CVA with residual left hemiparesis, history of coronary artery disease, hypertension, atrial fibrillation, who presented to the emergency department with generalized weakness and dizziness going on for 1 week. He lives in a alf and walks with a cane due to previous stroke and hemiparesis. He states that he had at least a couple falls due to weakness. He admits to not drinking enough water and for the last 2 days was probably having diarrhea as well. Denies abdominal pain nausea or vomiting. ER evaluation showed severe acute on chronic kidney failure, hyperkalemia and severe metabolic acidosis. Patient's potassium was 6.5 bicarbonate was 10, BUN 19 and creatinine of 10. Troponin was 2.2. Patient received calcium, IV insulin followed by D50, IV bicarbonate for hyperkalemia I evaluated the patient in the ED. He is tachycardic in atrial flutter and EKG shows significant left anterolateral ischemic changes. Patient is lethargic but wakes up easily and communicates. A stat ABG shows a pH of 7.12 PCO2 of 30 PO2 of 107 base excess of -18. I have requested 2 A of bicarbonate stat, and increased bicarbonate infusion 150 ML per hour. Patient will need emergency dialysis for severe acidemia and hyperkalemia. I have discussed with Dr. Jiang. Willl place [facility] when patient gets to the ICU 01/11: Started on HD yesterday, will get HD again today. required Precedex overnight for agitation. Transfused 2 U PRBC for Hb 6.4. Heparin DCD. hb 11.4 today. Creat 10.14, improved to 6.9. Making urine, 1L since admission 01/12: clinically improving. Cr better. remains on precedex, but improving. hgb improved. 01/23: RECONSULTED FOR TACHYCARDIA: This is a 56-year-old male with past medical history of CKD and prior stroke with significant residual deficits who is been in the ICU for some time with persistent encephalopathy, acute on chronic kidney injury, and atrial fibrillation with rapid ventricular response. Over the last 24 hours his heart rate is increased. His left upper extremity is swollen. In he is following commands less vigorously. He continues to have low -grade fevers. ID was consulted today. Critical care medicine was consulted for his persistent tachycardia and concern over his airway. I evaluated the patient and he was to altered to participate in history. The remainder the history is obtained from the medical record. Patient does appear to be maintaining his airway and has an adequate cough and gag. Patient does have A. fib with rapid ventricular response which was previously controlled with Cardizem. Critical care medicine is consulted to evaluate and manage his hemodynamics. 01/24: HR under better control on cardizem drip. multiple upper and lower extremity DVTs. was taken off full dose anticoagulation due to medical noncompliance concerns. however, in light of clots which may in fact be infected due to persistent bacteremia, will need full dose anticoagulation. worsening tachycardia may likely be due to pulmonary embolism secondary to DVTs , but regardless needs anticoagulation so no added value in additional diagnostic work-up for PE as it will not change our management at this time. Objective Vital Signs Date Time Temp Pulse Resp B/P (MAP) Pulse Ox O2 Delivery O2 Flow Rate FiO2 01/24/17 10:25 89 95/65 01/24/17 08:10 95 Nasal Cannula 4.00 01/24/17 08:00 98.4 20 Intake and Output 01/24/17 01/24/17 01/25/17 08:00 16:00 00:00 Intake Total 1018 ml Output Total 150 ml Balance 868 ml Result Diagram: 01/23/17 2240 01/24/17 0553 Imaging Last Impressions Chest X-Ray 01/21/17 0000 Signed Impressions: Service Date/Time: Saturday, January 21, 2017 22:42 - CONCLUSION: New hazy opacity in both lungs with concern for ovarian edema and congestive heart failure. Jose Espinal MD Abdomen X-Ray 01/18/17 0000 Signed Impressions: Service Date/Time: Wednesday, January 18, 2017 08:02 - CONCLUSION: No acute disease. Edward Mata MD Head CT 01/10/17 1257 Signed Impressions: Service Date/Time: Tuesday, January 10, 2017 13:32 - CONCLUSION: No acute disease. Jermaine Malone Jr., MD Renal Ultrasound 01/10/17 0000 Signed Impressions: Service Date/Time: Tuesday, January 10, 2017 17:01 - CONCLUSION: Normal examination. Jermaine Malone Jr., MD Objective Remarks GENERAL: patient slightly confused but arousable. HEAD: Normocephalic. Atraumatic. EYES: Pupils equal and round. No scleral icterus. ENT: No nasal bleeding or discharge. Mucous membranes moist NECK: Trachea midline. CARDIOVASCULAR: tachycardic, regular rhythm. Telemetry shows atrial flutter with variable block RESPIRATORY: Clear to auscultation. Breath sounds equal bilaterally. GASTROINTESTINAL: Abdomen soft. Nontender. MUSCULOSKELETAL: No obvious deformities. NEUROLOGICAL: slightly confused. RASS -1. briskly purposeful although only intermittently following commands. protecting airway. A/P Assessment and Plan Assessment: 56yM with baseline decreased level of functional status and multiple acute on chronic medical problems. most recently now with persistent bacteremia with failure to clear and multiple DVTs in the upper extremity. now needs full anticoagulation although thought to be not a good candidate for this in the past. Agree with palliative involvement as this is likely overall a very poor prognosis. high risk for anticoagluation, but at this point we have no choice. NEURO: Acute metabolic encephalopathy Agitated Delirium History of previous CVA with left hemiparesis - Delirium due to acute illness. - frequent neuro checks. currently protecting airway. RESP: Probable COPD Past Tobacco abuse - Nasal cannula oxygen, protecting airway - DuoNeb every 6 hours and when necessary CV: Atrial flutter with rapid ventricular response NSTEMI History of coronary artery disease - continue cardizem drip. can convert to PO once more awake taking PO. - 2 D Echo normal EF. no RWMA. PASP 47 GI: - renal diet as tolerated. - Continue PPI : Acute on chronic kidney failure/ABNER Hyperkalemia Severe metabolic acidosis - resolved. - Monitor renal function closely. Montelongo catheter. ID: Sepsis Leukocytosis - f/u LUE dopplers - ID consulted - f/u cultures - abx per ID HEME: Multiple Upper extremity DVTs - Monitor CBC, CMP, coags - start heparin drip. ENDO: Type 2 diabetes Hyperglycemia Dyslipidemia - Sliding-scale insulin PROPH: - Bilateral lower extremity SCDs. restart heparin drip, protonix 40 mg IV q12 LINES: - Utilize peripheral IVs Transfer back to hospitalist service. Alex Ventura MD Jan 24, 2017 11:55
--- NOTE | 2017-01-24 11:59 | HHI.NPPN ---
Subjective History of Present Illness 56-year-old male with past medical history of chronic kidney disease, diabetes mellitus, history of cerebrovascular accident with hemiparesis, ischemic heart disease, hypertension, atrial fibrillation who came to the hospital with generalized weakness and dizziness. I was called to see the patient because of very high BUN and creatinine, metabolic acidosis and hyperkalemia. The patient has known history of chronic kidney disease and his baseline creatinine seems to me in the range of 1.6 to 2.2. Additional Remarks Patient is sleepy but arousable, not in distress. Review of Systems General Constitutional: Fatigue Cardiovascular Cardiac: RODRÍGUEZ Objective Data Data Vital Signs Date Time Temp Pulse Resp B/P (MAP) Pulse Ox O2 Delivery O2 Flow Rate FiO2 01/24/17 10:25 89 95/65 01/24/17 08:10 95 Nasal Cannula 4.00 01/24/17 08:00 113 01/24/17 08:00 98.4 113 20 106/69 (81) 94 01/24/17 06:00 126 24 106/60 (75) 98 01/24/17 06:00 126 01/24/17 05:45 102 22 116/63 (80) 93 01/24/17 05:30 107 28 113/66 (82) 97 01/24/17 05:15 109 28 96/61 (73) 96 01/24/17 05:00 101 28 109/59 (76) 96 01/24/17 04:45 106 28 96/56 (69) 96 01/24/17 04:30 105 29 108/58 (75) 96 01/24/17 04:15 113 28 106/60 (75) 94 01/24/17 04:00 101 01/24/17 04:00 101.3 101 27 114/69 (84) 96 01/24/17 03:45 104 28 108/62 (77) 96 01/24/17 03:30 99 28 105/65 (78) 96 01/24/17 03:15 105 28 101/57 (72) 96 01/24/17 03:00 106 26 104/65 (78) 98 01/24/17 02:45 96 28 102/57 (72) 96 01/24/17 02:30 101 27 99/59 (72) 94 01/24/17 02:15 104 26 91/57 (68) 95 01/24/17 02:00 105 28 92/57 (69) 97 01/24/17 02:00 105 01/24/17 01:45 115 29 110/62 (78) 98 01/24/17 01:30 116 31 131/62 (85) 98 01/24/17 01:15 112 28 132/74 (93) 98 01/24/17 01:00 114 28 142/81 (101) 97 01/24/17 00:45 119 27 130/74 (92) 97 01/24/17 00:30 126 27 158/70 (99) 98 01/24/17 00:15 123 27 141/70 (93) 98 01/24/17 00:00 105 01/24/17 00:00 101.2 105 27 130/77 (94) 93 01/23/17 23:00 125 28 120/58 (78) 92 01/23/17 22:45 120 28 146/70 (95) 93 01/23/17 22:30 125 28 141/77 (98) 93 01/23/17 22:15 129 28 129/71 (90) 94 01/23/17 22:00 119 01/23/17 22:00 119 25 110/74 (86) 96 01/23/17 21:40 173 142/79 01/23/17 21:30 116 23 142/79 (100) 97 01/23/17 21:15 124 25 155/81 (105) 97 01/23/17 21:00 123 24 140/93 (109) 98 01/23/17 20:31 124 26 137/81 (99) 97 01/23/17 20:15 115 25 124/79 (94) 97 01/23/17 20:00 123 01/23/17 20:00 98.5 115 26 135/82 (99) 97 01/23/17 19:45 114 25 123/81 (95) 98 01/23/17 19:30 110 26 131/82 (98) 97 01/23/17 19:15 106 24 134/77 (96) 98 01/23/17 19:00 105 28 118/78 (91) 98 01/23/17 18:30 107 01/23/17 18:22 110 88/52 01/23/17 18:00 118 01/23/17 17:15 129 27 133/77 (95) 96 01/23/17 17:00 140 01/23/17 17:00 140 24 140/74 (96) 95 01/23/17 16:45 129 24 132/76 (94) 97 01/23/17 16:30 132 24 141/82 (101) 97 01/23/17 16:15 127 28 133/76 (95) 95 01/23/17 16:12 98.8 136 36 110/91 (97) 96 01/23/17 16:00 135 01/23/17 15:00 129 01/23/17 15:00 129 25 134/77 (96) 96 01/23/17 14:00 145 29 129/89 (102) 95 01/23/17 14:00 145 129/89 01/23/17 14:00 145 29 129/89 (102) 95 01/23/17 14:00 145 01/23/17 13:01 141 25 132/68 (89) 100 01/23/17 13:00 143 01/23/17 12:37 144 165/69 01/23/17 12:00 100.9 144 27 165/69 (101) 96 01/23/17 12:00 144 -: 01/23/17 2240 01/24/17 0553 Microbiology 01/23/17 Urine Culture, Received Pending Physical Exam General Appearance: No Acute Distress, Comfortable, Anxious Throat Throat Exam: Oral Mucosa Rosa & Moist Pulmonary Resp Exam: Breath Sounds Equal, No Distress, Rhonchi, Decreased Bases, Diminished Breath Sounds Cardiology CV Exam: Arrhythmia Gastrointestinal/Abdomen GI Exam: Soft, Non-Tender, Bowel Sounds Present Extremeties Extremities Exam: Trace Edema Neurologic Neuro Exam: Alert, Awake Assessment/Plan Assessment Summary: ABNER/Acute Renal Failure, CKD Stage III Electrolyte Assessment: Hyperkalemia, Hypocalcemia, Metabolic Acidosis Problem List: (1) History of CVA (cerebrovascular accident) ICD Codes: Z86.73 - Personal history of transient ischemic attack (TIA), and cerebral infarction without residual deficits Status: Chronic (2) HTN (hypertension) ICD Codes: I10 - Essential (primary) hypertension Status: Chronic (3) Diabetes ICD Codes: E11.9 - Type 2 diabetes mellitus without complications Status: Acute (4) Metabolic acidemia ICD Codes: E87.2 - Acidosis (5) Hyperkalemia ICD Codes: E87.5 - Hyperkalemia Status: Acute (6) Acute renal failure ICD Codes: N17.9 - Acute kidney failure, unspecified Status: Acute Plan Patient has chronic kidney disease and develop ABNER. Also had metabolic acidosis and Hyperkalemia. Patient has HD 1 session then ARF resolved ATN resolving 1/2 NS at 84 cc/hr Creatinine continue to improve, K is normal. Encourage oral intake. Avoid Nephrotoxins, follow BMP. Problem Qualifiers (1) HTN (hypertension): Qualified Codes: I10 - Essential (primary) hypertension (2) Diabetes: (3) Acute renal failure: Qualified Codes: N17.9 - Acute kidney failure, unspecified Umair Jiang MD Jan 24, 2017 11:59
[2017-01-24] MEDS ORDERED: HEPARIN-D5W 25,000 U/250 ML 250 ML IV SCH (12:00)
[2017-01-24 13:05] LABS: MEAN CELL VOLUME 86.5 FL (80.0-100.0); MEAN CORPUSCULAR HEMOGLOBIN 28.3 PG (27.0-34.0); MEAN CORPUSCULAR HGB CONC 32.7 % (32.0-36.0); PLATELET COUNT 252 TH/MM3 (150-450); RED BLOOD COUNT 3.12 MIL/MM3 (4.50-5.90); RED CELL DISTRIBUTION WIDTH 14.8 % (11.6-17.2); REVIEW FLAG FINAL; WHITE BLOOD COUNT 19.3 TH/MM3 (4.0-11.0)
[2017-01-24 13:20] LABS: APTT (PATIENT) 41.5 SEC (24.3-30.1); INTERNATIONAL NORMALIZED RATIO 1.8 RATIO; PROTHROMBIN TIME - PATIENT 20.1 SEC (9.8-11.6)
[2017-01-24] MEDS: HEPARIN-D5W 25,000 U/250 ML 250 ML IV PRN (15:37)
[2017-01-24] MEDS ORDERED: DEXTROSE 50% IN WATER 50 ML VIAL(D50) IV PUSH PRN (16:00)
[2017-01-24] MEDS: INSULIN NovoLIN REGULAR SUPPLEMENTAL SCALE SQ SCH ×2 (16:45→23:57)
[2017-01-24] MEDS: ATORVASTATIN 80 MG TAB PO SCH (19:40)
--- NOTE | 2017-01-24 20:04 | HHI.PR ---
Addendum to Inpatient Note Additional Information pt seen around 1930 full note to follow chart reviewed 56 yo with ARF, resolved h/o Vascath 01/10- 01/16 removed 2 D echo neg persistent MSSA bactermia LUE DVT On exam : severe nonnpitting LUE edema , soft compartments L side plegic villarreal in place, cloudy urine change abx to cefazoline consider LIGIA monitor BC untill sterility achieved dw family member Jennifer Aguilar RN, MD Jan 24, 2017 20:04
[2017-01-24 20:23] LABS: APTT (PATIENT) 113.7 SEC (24.3-30.1)
[2017-01-24] MEDS: ceFAZolin 2 GM PREMIX 50 ML IV SCH (20:33)
--- NOTE | 2017-01-24 22:03 | HHI.IDPN ---
Subjective Subjective Remarks ID [id number] chart was reviewed pt seen around 1930 full note to follow chart reviewed 56 yo with ARF, resolved h/o Vascath 01/10- 01/16 removed 2 D echo neg persistent MSSA bactermia LUE DVT Antibiotics vanco cefepime Allergies: Coded Allergies: No Known Allergies (Unverified , 01/07/17) Objective . Vital Signs Date Time Temp Pulse Resp B/P (MAP) Pulse Ox O2 Delivery O2 Flow Rate FiO2 01/24/17 21:18 96 Nasal Cannula 2.00 01/24/17 20:49 18 01/24/17 20:00 98.2 113 18 108/66 (80) 95 01/24/17 20:00 113 01/24/17 18:00 115 01/24/17 16:00 74 01/24/17 16:00 99.3 103 20 112/58 (76) 94 01/24/17 14:00 72 01/24/17 12:00 98.8 103 22 111/61 (78) 95 01/24/17 12:00 102 01/24/17 10:25 89 95/65 01/24/17 10:00 103 01/24/17 08:10 95 Nasal Cannula 4.00 01/24/17 08:00 113 01/24/17 08:00 98.4 113 20 106/69 (81) 94 01/24/17 06:00 126 24 106/60 (75) 98 01/24/17 06:00 126 01/24/17 05:45 102 22 116/63 (80) 93 01/24/17 05:30 107 28 113/66 (82) 97 01/24/17 05:15 109 28 96/61 (73) 96 01/24/17 05:00 101 28 109/59 (76) 96 01/24/17 04:45 106 28 96/56 (69) 96 01/24/17 04:30 105 29 108/58 (75) 96 01/24/17 04:15 113 28 106/60 (75) 94 01/24/17 04:00 101 01/24/17 04:00 101.3 101 27 114/69 (84) 96 01/24/17 03:45 104 28 108/62 (77) 96 01/24/17 03:30 99 28 105/65 (78) 96 01/24/17 03:15 105 28 101/57 (72) 96 01/24/17 03:00 106 26 104/65 (78) 98 01/24/17 02:45 96 28 102/57 (72) 96 01/24/17 02:30 101 27 99/59 (72) 94 01/24/17 02:15 104 26 91/57 (68) 95 01/24/17 02:00 105 28 92/57 (69) 97 01/24/17 02:00 105 01/24/17 01:45 115 29 110/62 (78) 98 01/24/17 01:30 116 31 131/62 (85) 98 01/24/17 01:15 112 28 132/74 (93) 98 01/24/17 01:00 114 28 142/81 (101) 97 01/24/17 00:45 119 27 130/74 (92) 97 01/24/17 00:30 126 27 158/70 (99) 98 01/24/17 00:15 123 27 141/70 (93) 98 01/24/17 00:00 105 01/24/17 00:00 101.2 105 27 130/77 (94) 93 01/23/17 23:00 125 28 120/58 (78) 92 01/23/17 22:45 120 28 146/70 (95) 93 01/23/17 22:30 125 28 141/77 (98) 93 01/23/17 22:15 129 28 129/71 (90) 94 01/24/17 01/24/17 01/25/17 15:00 23:00 07:00 Intake Total 1893 ml Output Total 200 ml Balance 1693 ml Intake Oral 600 ml IV Total 1293 ml Output Urine Total 200 ml . Laboratory Tests Test 01/22/17 22:39 01/23/17 03:25 01/23/17 07:52 01/23/17 13:12 White Blood Count 17.4 TH/MM3 20.3 TH/MM3 21.3 TH/MM3 23.1 TH/MM3 Red Blood Count 3.48 MIL/MM3 3.70 MIL/MM3 3.63 MIL/MM3 3.50 MIL/MM3 Hemoglobin 10.0 GM/DL 10.6 GM/DL 10.5 GM/DL 9.9 GM/DL Hematocrit 29.7 % 31.9 % 31.2 % 30.4 % Mean Corpuscular Volume 85.4 FL 86.3 FL 85.8 FL 86.9 FL Mean Corpuscular Hemoglobin 28.8 PG 28.6 PG 28.8 PG 28.3 PG Mean Corpuscular Hemoglobin Concent 33.8 % 33.1 % 33.5 % 32.6 % Red Cell Distribution Width 14.6 % 14.5 % 14.7 % 14.6 % Platelet Count 196 TH/MM3 207 TH/MM3 180 TH/MM3 220 TH/MM3 Mean Platelet Volume 10.1 FL 9.9 FL 9.8 FL 9.8 FL Neutrophils (%) (Auto) 86.1 % 85.7 % 87.6 % Lymphocytes (%) (Auto) 4.8 % 4.6 % 4.6 % Monocytes (%) (Auto) 8.5 % 9.1 % 7.3 % Eosinophils (%) (Auto) 0.3 % 0.3 % 0.2 % Basophils (%) (Auto) 0.3 % 0.3 % 0.3 % Neutrophils # (Auto) 14.9 TH/MM3 17.4 TH/MM3 20.3 TH/MM3 Lymphocytes # (Auto) 0.8 TH/MM3 0.9 TH/MM3 1.1 TH/MM3 Monocytes # (Auto) 1.5 TH/MM3 1.8 TH/MM3 1.7 TH/MM3 Eosinophils # (Auto) 0.1 TH/MM3 0.1 TH/MM3 0.1 TH/MM3 Basophils # (Auto) 0.1 TH/MM3 0.1 TH/MM3 0.1 TH/MM3 CBC Comment AUTO DIFF AUTO DIFF AUTO DIFF AUTO DIFF Differential Total Cells Counted 100 100 100 Neutrophils % (Manual) 80 % 59 % 89 % Band Neutrophils % 11 % 30 % 1 % Lymphocytes % 5 % 6 % 2 % Monocytes % 1 % 5 % 7 % Eosinophils % 1 % Basophils % 1 % Neutrophils # (Manual) 16.0 TH/MM3 18.1 TH/MM3 19.2 TH/MM3 Metamyelocytes 1 % Nucleated Red Blood Cells 1 /100 WBC 2 /100 WBC Differential Comment FINAL DIFF MANUAL FINAL DIFF MANUAL FINAL DIFF MANUAL AUTO DIFF CONFIRMED Toxic Granulation 1+ 1+ Dohle Bodies PRESENT PRESENT Platelet Estimate NORMAL NORMAL NORMAL Platelet Morphology Comment ENLARGED ENLARGED NORMAL Red Cell Morphology Comment NORMAL NORMAL NORMAL Hematology Comments Toxic Vacuolation PRESENT Plasma Cells 1 % Test 01/23/17 18:53 01/23/17 22:40 01/24/17 12:44 White Blood Count 22.0 TH/MM3 22.4 TH/MM3 19.3 TH/MM3 Red Blood Count 3.41 MIL/MM3 3.35 MIL/MM3 3.12 MIL/MM3 Hemoglobin 9.7 GM/DL 9.5 GM/DL 8.8 GM/DL Hematocrit 29.9 % 29.0 % 27.0 % Mean Corpuscular Volume 87.7 FL 86.7 FL 86.5 FL Mean Corpuscular Hemoglobin 28.4 PG 28.2 PG 28.3 PG Mean Corpuscular Hemoglobin Concent 32.4 % 32.6 % 32.7 % Red Cell Distribution Width 15.1 % 14.3 % 14.8 % Platelet Count 216 TH/MM3 230 TH/MM3 252 TH/MM3 Mean Platelet Volume 10.2 FL 9.9 FL 9.6 FL Neutrophils (%) (Auto) 88.6 % 90.6 % Lymphocytes (%) (Auto) 4.6 % 3.0 % Monocytes (%) (Auto) 6.2 % 5.9 % Eosinophils (%) (Auto) 0.2 % 0.2 % Basophils (%) (Auto) 0.4 % 0.3 % Neutrophils # (Auto) 19.5 TH/MM3 20.3 TH/MM3 Lymphocytes # (Auto) 1.0 TH/MM3 0.7 TH/MM3 Monocytes # (Auto) 1.4 TH/MM3 1.3 TH/MM3 Eosinophils # (Auto) 0.1 TH/MM3 0.1 TH/MM3 Basophils # (Auto) 0.1 TH/MM3 0.1 TH/MM3 CBC Comment DIFF FINAL AUTO DIFF Differential Comment FINAL DIFF MANUAL Differential Total Cells Counted 100 Neutrophils % (Manual) 89 % Band Neutrophils % 3 % Lymphocytes % 4 % Monocytes % 3 % Eosinophils % 1 % Neutrophils # (Manual) 20.6 TH/MM3 Toxic Vacuolation PRESENT Platelet Estimate NORMAL Platelet Morphology Comment NORMAL Laboratory Tests Test 01/22/17 22:39 01/23/17 03:25 01/24/17 05:53 Blood Urea Nitrogen 33 MG/DL 33 MG/DL 29 MG/DL Creatinine 2.30 MG/DL 2.20 MG/DL 2.00 MG/DL Random Glucose 225 MG/DL 176 MG/DL 200 MG/DL Total Protein 6.8 GM/DL 6.8 GM/DL Albumin 1.9 GM/DL 2.0 GM/DL Calcium Level 7.7 MG/DL 7.6 MG/DL 7.5 MG/DL Phosphorus Level 1.9 MG/DL 2.0 MG/DL Magnesium Level 1.5 MG/DL 1.7 MG/DL Alkaline Phosphatase 88 U/L 67 U/L Aspartate Amino Transf (AST/SGOT) 42 U/L 55 U/L Alanine Aminotransferase (ALT/SGPT) 26 U/L 28 U/L Total Bilirubin 1.1 MG/DL 1.1 MG/DL Sodium Level 136 MEQ/L 136 MEQ/L 137 MEQ/L Potassium Level 3.9 MEQ/L 3.8 MEQ/L 3.9 MEQ/L Chloride Level 102 MEQ/L 101 MEQ/L 105 MEQ/L Carbon Dioxide Level 24.2 MEQ/L 26.9 MEQ/L 25.3 MEQ/L Anion Gap 10 MEQ/L 8 MEQ/L 7 MEQ/L Estimat Glomerular Filtration Rate 36 ML/MIN 38 ML/MIN 42 ML/MIN Microbiology Date/Time Source Procedure Growth Status 01/23/17 06:11 Blood Peripheral Aerobic Blood Culture - Preliminary Gram Positive Cocci Resulted 01/23/17 06:11 Anaerobic Blood Culture - Preliminary Gram Positive Cocci Resulted 01/23/17 06:00 Blood Peripheral Aerobic Blood Culture - Preliminary Gram Positive Cocci Resulted 01/23/17 06:00 Anaerobic Blood Culture - Preliminary Gram Positive Cocci Resulted 01/22/17 00:15 Blood Peripheral Aerobic Blood Culture - Preliminary Staphylococcus Aureus Resulted 01/22/17 00:15 Blood Peripheral Anaerobic Blood Culture - Final QNS - SEE AEROBE REPORT Resulted 01/22/17 00:10 Blood Peripheral Aerobic Blood Culture - Preliminary Staphylococcus Aureus Resulted 01/22/17 00:10 Blood Peripheral Anaerobic Blood Culture - Final QNS - SEE AEROBE REPORT Resulted 01/23/17 14:26 Urine Clean Catch Urine Culture - Preliminary Staphylococcus Aureus Resulted Imaging Last Impressions Upper Extremity Ultrasound 01/23/17 0000 Signed Impressions: Service Date/Time: Monday, January 23, 2017 17:45 - CONCLUSION: Thrombus identified within the internal jugular, subclavian, and the basilic veins. Jeyson Luciano MD Chest X-Ray 01/21/17 0000 Signed Impressions: Service Date/Time: Saturday, January 21, 2017 22:42 - CONCLUSION: New hazy opacity in both lungs with concern for ovarian edema and congestive heart failure. Jose Espinal MD Abdomen X-Ray 01/18/17 0000 Signed Impressions: Service Date/Time: Wednesday, January 18, 2017 08:02 - CONCLUSION: No acute disease. Edward Mata MD Head CT 01/10/17 1257 Signed Impressions: Service Date/Time: Tuesday, January 10, 2017 13:32 - CONCLUSION: No acute disease. Jermaine Malone Jr., MD Renal Ultrasound 01/10/17 0000 Signed Impressions: Service Date/Time: Tuesday, January 10, 2017 17:01 - CONCLUSION: Normal examination. Jermaine Malone Jr., MD Physical Exam GENERAL: Patient is a well-nourished, well-developed male, awake and alert, not in respiratory distress. SKIN: Warm and dry. No generalized rash, no ecchymoses and no evidence of embolic lesions. HEAD: Atraumatic. Normocephalic. No temporal wasting, or tenderness. EYES: [place] conjunctiva. No petechia or hemorrhage. Pupils equal, round and reactive to light. Extraocular movements full and intact. No scleral icterus. No injection or drainage. EARS, NOSE AND THROAT: Nose without bleeding or purulent nasal discharge. No sinus tenderness. Moist mucosa, the rest of mouth exam not done, since patient not cooperative NECK: Trachea midline. Supple and not tender, no meningeal signs. Previous vascath site looks ok, dry CARDIOVASCULAR: Tachycardic, iregular rate and rhythm. No murmurs, rubs or gallops heard RESPIRATORY: Clear to auscultation. Breath sounds equal bilaterally. No rales , wheezing or rhonchi, decreased at the bases ABDOMEN: Soft, non-tender, nondistended. Bowel sounds present and normoactive. No guarding. No rebound. No organomegaly. EXTREMITIES: mild BLE edema, o cyanosis severe nonnpitting LUE edema , soft compartments : villarreal in place, cloudy urine NEUROLOGICAL: Awake and alert. L side plegic PSYCHIATRIC: calm, but not always cooperative. LINE: No evidence of infection Assessment & Plan Remarks IMPRESSION Sepsis with MSSA - had vascath placed 01/10, removed 01/15 - has LUE swelling, ?DVT - has basilar opacities, ?fluid; not coughing or congested, less likely PNA Renal failure, creatinine has improved and has good UO Previous CVA with left sided weakness Atrial fib with RVR change abx to cefazoline consider LIGIA monitor BC untill sterility achieved dw family member dw RN Jennifer Maynard MD Jan 24, 2017 22:03
[2017-01-25] VITALS (14 sets, daily range): BP systolic 98–127; BP diastolic 57–75; PULSE 104–139; RESP 16–22; TEMP 98.5–99.4; O2SAT 92–96
[2017-01-25 00:15] LABS: APTT (PATIENT) 73.5 SEC (24.3-30.1)
[2017-01-25] MEDS: METOCLOPRAMIDE HCL 10 MG/2 ML VIAL IV PUSH SCH ×3 (02:42→18:57)
[2017-01-25] MEDS: ceFAZolin 2 GM PREMIX 50 ML IV SCH ×3 (03:54→20:52)
[2017-01-25] MEDS: CHLORHEXIDINE GLUCONATE 2 % 1 PACK (2 CLOTHS) TOP SCH (04:00)
[2017-01-25] MEDS: HEPARIN-D5W 25,000 U/250 ML 250 ML IV PRN (04:00)
[2017-01-25] MEDS: INSULIN NovoLIN REGULAR SUPPLEMENTAL SCALE SQ SCH ×3 (06:00→18:00)
[2017-01-25 06:12] LABS: HEMATOCRIT 24.2 % (39.0-51.0); MEAN CELL VOLUME 86.2 FL (80.0-100.0); MEAN CORPUSCULAR HEMOGLOBIN 28.7 PG (27.0-34.0); MEAN CORPUSCULAR HGB CONC 33.2 % (32.0-36.0); PLATELET COUNT 266 TH/MM3 (150-450); RED BLOOD COUNT 2.81 MIL/MM3 (4.50-5.90); RED CELL DISTRIBUTION WIDTH 14.7 % (11.6-17.2); REVIEW FLAG FINAL
[2017-01-25] MEDS: METOPROLOL TARTRATE 50 MG TAB PO SCH ×3 (06:12→20:53)
[2017-01-25 06:13] LABS: HEMATOCRIT 24.1 % (39.0-51.0); MEAN CELL VOLUME 86.4 FL (80.0-100.0); MEAN CORPUSCULAR HEMOGLOBIN 28.1 PG (27.0-34.0); MEAN CORPUSCULAR HGB CONC 32.6 % (32.0-36.0); PLATELET COUNT 271 TH/MM3 (150-450); RED BLOOD COUNT 2.79 MIL/MM3 (4.50-5.90); RED CELL DISTRIBUTION WIDTH 14.8 % (11.6-17.2); REVIEW FLAG FINAL; WHITE BLOOD COUNT 19.1 TH/MM3 (4.0-11.0)
[2017-01-25 06:32] LABS: APTT (PATIENT) 170.4 SEC (24.3-30.1)
[2017-01-25 06:41] LABS: BICARBONATE 24.9 MEQ/L (21.0-32.0); POTASSIUM 3.6 MEQ/L (3.5-5.1)
[2017-01-25 08:33] LABS: INTERNATIONAL NORMALIZED RATIO 1.5 RATIO; PROTHROMBIN TIME - PATIENT 17.1 SEC (9.8-11.6)
[2017-01-25] MEDS: POTASSIUM PHOSPHATE MONOBASIC 500 MG TAB PO SCH ×2 (08:41→19:40)
[2017-01-25] MEDS: ASPIRIN EC 81 MG TABEC PO SCH (08:41)
[2017-01-25] MEDS: DOCUSATE SODIUM 50 MG/SENNA 8.6 MG TAB PO SCH ×2 (08:41→19:40)
[2017-01-25] MEDS: QUEtiapine FUMARATE 25 MG TAB PO SCH ×2 (08:41→19:39)
[2017-01-25] MEDS: guaiFENesin E.R. 600 MG TAB PO SCH ×2 (08:41→19:39)
[2017-01-25] MEDS: CALCIUM CARBONATE 1.25 GM (CA 500 MG) TAB PO SCH ×4 (08:41→19:40)
[2017-01-25] MEDS: SODIUM CHLORIDE 0.9% FLUSH 10 ML FLUSH IV FLUSH SCH ×2 (08:42→20:53)
[2017-01-25] MEDS: INSULIN DETEMIR 100 UNITS/ML VIAL SQ SCH ×2 (08:42→20:53)
[2017-01-25 08:45] LABS: APTT (PATIENT) 116.5 SEC (24.3-30.1)
[2017-01-25] MEDS: DILTIAZEM 125 MG/NS 100 ML IV PRN ×4 (11:38→22:28)
[2017-01-25] MEDS: SODIUM CHLOR 0.45% 1000 ML INJ 1,000 ML IV SCH ×2 (13:02→22:28)
[2017-01-25 13:27] LABS: APTT (PATIENT) 106.4 SEC (24.3-30.1)
--- NOTE | 2017-01-25 13:48 | HHI.PR ---
Subjective Remarks microbial specialist following, with diagnosis of Atrial Fibrillation, recommended to stop Warfarin due to Non compliance, has elevated Troponin but no angina like symptoms, normal left ventricular function by Echo recent non ischemic nuclear stress. Psychiatry specialist following with diagnosis of Delirium due to another medical condition, due to lack of cooperation inability to express a rational choice and inability to verbalize reason of hospitalization and nature of her medical illnesses the patient doesn't have decision making capacity to refuse medications of to leave AMA. 01/21: patient stable during the day, during the afternoon he started with fever for this reason was asked for CXR, blood cultures lactic acid, new CBC, UA and follow results. no nausea, vomit or diarrhea. 01/22: Seen in his bedroom with nurse Miss Cabello, no changes no nausea, vomit or diarrhea, the patient has not the drive to help for his Care I think related to Psychiatric Issues more than organic disease, will be organic if continue with this behavior. at this time somnolent but awakes and engage in conversation. 01/23: patient seen in his bedroom, continue Lethargic, continue Febrile seen with nurse Miss Moreira, asked for ID specialist consult and gas plant specialist evaluation today, no nausea, vomit or diarrhea 01/24: Seen in his bedroom and discussed with nurse Mr. Tony, the patient has Persistent MSSA Bacteremia, antibiotics changed to Cefazolin and continue BC as per ID specialist, continue refusing his by mouth medicines. No nausea, vomit or diarrhea. Objective Vital Signs Date Time Temp Pulse Resp B/P (MAP) Pulse Ox O2 Delivery O2 Flow Rate FiO2 01/25/17 11:38 133 140/80 01/25/17 10:00 133 01/25/17 08:00 99.1 123 20 127/71 (89) 93 01/25/17 08:00 123 01/25/17 07:55 94 Nasal Cannula 4.00 01/25/17 06:00 116 01/25/17 04:00 118 01/25/17 04:00 98.7 118 17 116/61 (79) 96 01/25/17 02:00 110 01/25/17 00:00 98.5 104 16 112/68 (83) 96 01/25/17 00:00 104 01/24/17 22:00 113 01/24/17 21:18 96 Nasal Cannula 2.00 01/24/17 20:49 18 01/24/17 20:00 98.2 113 18 108/66 (80) 95 01/24/17 20:00 113 01/24/17 18:00 115 01/24/17 16:00 74 01/24/17 16:00 99.3 103 20 112/58 (76) 94 01/24/17 14:00 72 I/O 01/24/17 01/24/17 01/24/17 01/25/17 01/25/17 01/25/17 07:00 15:00 23:00 07:00 15:00 23:00 Intake Total 1018 ml 1893 ml 120 ml 100 ml Output Total 150 ml 200 ml 500 ml Balance 868 ml 1693 ml -380 ml 100 ml Intake Oral 160 ml 600 ml 120 ml IV Total 858 ml 1293 ml 100 ml Output Urine Total 150 ml 200 ml 500 ml # Voids 2 # Bowel Movements 0 0 Result Diagram: 01/25/17 0543 01/25/17 0542 Imaging Last Impressions Upper Extremity Ultrasound 01/23/17 0000 Signed Impressions: Service Date/Time: Monday, January 23, 2017 17:45 - CONCLUSION: Thrombus identified within the internal jugular, subclavian, and the basilic veins. Jeyson Luciano MD Chest X-Ray 01/21/17 0000 Signed Impressions: Service Date/Time: Saturday, January 21, 2017 22:42 - CONCLUSION: New hazy opacity in both lungs with concern for ovarian edema and congestive heart failure. Jose Espinal MD Abdomen X-Ray 01/18/17 0000 Signed Impressions: Service Date/Time: Wednesday, January 18, 2017 08:02 - CONCLUSION: No acute disease. Edward Mata MD Head CT 01/10/17 1257 Signed Impressions: Service Date/Time: Tuesday, January 10, 2017 13:32 - CONCLUSION: No acute disease. Jermaine Malone Jr., MD Renal Ultrasound 01/10/17 0000 Signed Impressions: Service Date/Time: Tuesday, January 10, 2017 17:01 - CONCLUSION: Normal examination. Jermaine Malone Jr., MD Procedures Hemodialysis. Other Results Laboratory Tests Test 01/10/17 16:57 01/10/17 18:00 01/10/17 20:17 01/11/17 03:40 Blood Gas Inspired Oxygen 21 % Nasal Screen MRSA (PCR) MRSA NOT DETECTED Hepatitis A IgM Antibody NEGATIVE Hepatitis B Surface Antigen NEGATIVE Hepatitis B Core IgM Antibody NEGATIVE Hepatitis C Antibody NEGATIVE Troponin I 2.31 NG/ML Test 01/15/17 07:20 01/17/17 05:10 01/21/17 12:50 01/22/17 00:15 Urine Amorphous Sediment OCC Urine Mucus FEW /lpf Hemoglobin A1c 7.0 % Free Thyroxine 1.77 NG/DL Thyroid Stimulating Hormone 3rd Gen 1.190 uIU/ML Protein Corrected Calcium 7.2 MG/DL Lactic Acid Level 1.1 mmol/L Test 01/22/17 22:39 01/23/17 03:25 01/23/17 05:50 01/23/17 07:52 Basophils % 1 % Metamyelocytes 1 % Ionized Calcium 5.1 mg/dL Toxic Granulation 1+ Dohle Bodies PRESENT Blood Urea Nitrogen 33 MG/DL Creatinine 2.20 MG/DL Random Glucose 176 MG/DL Total Protein 6.8 GM/DL Albumin 2.0 GM/DL Calcium Level 7.6 MG/DL Phosphorus Level 2.0 MG/DL Alkaline Phosphatase 67 U/L Aspartate Amino Transf (AST/SGOT) 55 U/L Alanine Aminotransferase (ALT/SGPT) 28 U/L Total Bilirubin 1.1 MG/DL Sodium Level 136 MEQ/L Potassium Level 3.8 MEQ/L Chloride Level 101 MEQ/L Carbon Dioxide Level 26.9 MEQ/L Blood Gas Puncture Site LT RADIAL Blood Gas Patient Temperature 98.6 Blood Gas HCO3 26 mmol/L Blood Gas Base Excess 2.3 mmol/L Blood Gas Oxygen Saturation 91 % Arterial Blood pH 7.49 Arterial Blood Partial Pressure CO2 34 mmHg Arterial Blood Partial Pressure O2 67 mmHg Arterial Blood Oxygen Content 13.0 Vol % Arterial Blood Carboxyhemoglobin 1.0 % Arterial Blood Methemoglobin 1.3 % Blood Gas Hemoglobin 10.1 G/DL Oxygen Delivery Device NASAL CANNULA Blood Gas Liter Flow 4 L/M Nucleated Red Blood Cells 2 /100 WBC Plasma Cells 1 % Red Cell Morphology Comment NORMAL Hematology Comments Test 01/23/17 14:26 01/23/17 22:40 01/24/17 05:53 01/25/17 05:42 Urine Color YELLOW Urine Turbidity HAZY Urine pH 6.0 Urine Specific [place] 1.015 Urine Protein 100 mg/dL Urine Glucose (UA) NEG mg/dL Urine Ketones 10 mg/dL Urine Occult Blood MOD Urine Nitrite NEG Urine Bilirubin NEG Urine Urobilinogen LESS THAN 2.0 MG/DL Urine Leukocyte Esterase LARGE Urine RBC LESS THAN 1 /hpf Urine WBC 158 /hpf Urine WBC Clumps FEW Urine Squamous Epithelial Cells 1 /hpf Urine Bacteria FEW /hpf Microscopic Urinalysis Comment CULTURE INDICATED Neutrophils (%) (Auto) 90.6 % Lymphocytes (%) (Auto) 3.0 % Monocytes (%) (Auto) 5.9 % Eosinophils (%) (Auto) 0.2 % Basophils (%) (Auto) 0.3 % Neutrophils # (Auto) 20.3 TH/MM3 Lymphocytes # (Auto) 0.7 TH/MM3 Monocytes # (Auto) 1.3 TH/MM3 Eosinophils # (Auto) 0.1 TH/MM3 Basophils # (Auto) 0.1 TH/MM3 CBC Comment AUTO DIFF Differential Total Cells Counted 100 Neutrophils % (Manual) 89 % Band Neutrophils % 3 % Lymphocytes % 4 % Monocytes % 3 % Eosinophils % 1 % Neutrophils # (Manual) 20.6 TH/MM3 Differential Comment FINAL DIFF MANUAL Toxic Vacuolation PRESENT Platelet Estimate NORMAL Platelet Morphology Comment NORMAL Blood Urea Nitrogen 29 MG/DL 31 MG/DL Creatinine 2.00 MG/DL 2.49 MG/DL Random Glucose 200 MG/DL 112 MG/DL Calcium Level 7.5 MG/DL 7.5 MG/DL Magnesium Level 1.7 MG/DL Sodium Level 137 MEQ/L 137 MEQ/L Potassium Level 3.9 MEQ/L 3.6 MEQ/L Chloride Level 105 MEQ/L 103 MEQ/L Carbon Dioxide Level 25.3 MEQ/L 24.9 MEQ/L Anion Gap 9 MEQ/L Estimat Glomerular Filtration Rate 33 ML/MIN Test 01/25/17 05:43 01/25/17 07:52 01/25/17 12:55 White Blood Count 19.1 TH/MM3 Red Blood Count 2.79 MIL/MM3 Hemoglobin 7.8 GM/DL Hematocrit 24.1 % Mean Corpuscular Volume 86.4 FL Mean Corpuscular Hemoglobin 28.1 PG Mean Corpuscular Hemoglobin Concent 32.6 % Red Cell Distribution Width 14.8 % Platelet Count 271 TH/MM3 Mean Platelet Volume 9.3 FL Prothrombin Time 17.1 SEC Prothromb Time International Ratio 1.5 RATIO Activated Partial Thromboplast Time 106.4 SEC Objective Remarks GENERAL: Lethargic as per nurse gave him Haldol. CV: Irregular rate with tachycardia and irregular rhythm. No rubs murmurs or gallops. Resp: Clear to all station bilaterally Abdomen: Soft but distended. Negative tenderness palpation. No peritoneal signs. Extremity negative for any edema. Neuro: Lethargic. Medications and IVs Current Medications Medications (Trade) Dose Ordered Sig/Mansi Route Start Time Stop Time Status Last Admin (Tylenol) 650 mg Q6H PRN PO 01/10/17 17:00 01/21/17 18:11 (Proair Hfa Inh) 2 puff Q6H PRN INH 01/10/17 17:00 (Lipitor) 80 mg HS PO 01/10/17 21:00 01/24/17 19:40 (Nitrostat Sl) 0.4 mg Q3H PRN SL 01/10/17 17:00 (Ecotrin Ec) 81 mg DAILY PO 01/10/17 17:00 01/25/17 08:41 (NS Flush) 2 ml BID IV FLUSH 01/10/17 21:00 01/25/17 08:42 Miscellaneous Information 1 Q361D XX 01/10/17 17:15 (Chlorhexidine 2% Cloth) Taper DAILY@04 TOP 01/11/17 04:00 01/07/18 03:59 01/25/17 04:00 (Chlorhexidine 2% Cloth) 3 pack UNSCH PRN TOP 01/10/17 17:15 (Afia-Colace) 1 tab BID PO 01/10/17 21:00 01/25/17 08:41 (Milk Of Magnesia Liq) 30 ml Q12H PRN PO 01/10/17 17:15 (Senokot) 17.2 mg Q12H PRN PO 01/10/17 17:15 (Dulcolax Supp) 10 mg DAILY PRN RECTAL 01/10/17 17:15 (Lactulose Liq) 30 ml DAILY PRN PO 01/10/17 17:15 Sodium Chloride 1,000 ml @ 0 mls/hr Q0M PRN OTHER 01/10/17 17:47 01/10/17 22:05 Sodium Chloride 1,000 ml @ 200 mls/hr Q5H PRN IV 01/10/17 17:47 Sodium Chloride 1,000 ml @ 0 mls/hr Q0M PRN OTHER 01/10/17 17:47 (Mannitol Inj) 12.5 gm UNSCH PRN IV 01/10/17 18:00 Albumin Human 100 ml @ 60 mls/hr UNSCH PRN IV 01/10/17 18:00 (NS Flush) 5 ml UNSCH PRN IV FLUSH 01/10/17 18:00 (Heparin Inj) UNSCH PRN .XX 01/10/17 18:00 (Gentamicin (Dialysis) Inj) 20 mg UNSCH PRN OTHER 01/10/17 18:00 01/10/17 22:03 (Zofran Inj) 4 mg UNSCH PRN IV PUSH 01/10/17 18:00 01/18/17 08:51 (Tylenol) 650 mg UNSCH PRN PO 01/10/17 18:00 01/24/17 01:28 (Benadryl) 25 mg UNSCH PRN PO 01/10/17 18:00 (Nitrostat Sl) 0.4 mg UNSCH PRN SL 01/10/17 18:00 (Catapres) 0.1 mg UNSCH PRN PO 01/10/17 18:00 01/15/17 02:07 (Gelfoam 12 Mm/7 Mm Top) 1 foam UNSCH PRN TOP 01/10/17 18:00 Dexmedetomidine HCl 200 mcg/ Sodium Chloride 52 ml @ 5.46 mls/hr TITRATE PRN IV 01/11/17 00:00 01/12/17 14:53 (Haldol Inj) 5 mg Q4H PRN IV 01/12/17 17:00 01/20/17 10:02 (Reglan Inj) 5 mg Q8H IV PUSH 01/15/17 10:00 01/25/17 11:26 (Apresoline Inj) 10 mg Q4H PRN IV PUSH 01/15/17 10:00 Potassium Chloride 100 ml @ 50 mls/hr Q2H IV 01/15/17 10:00 Future Hold 01/16/17 06:11 (Catapres-Tts 0.3 Mg Patch.7d) 1 patch Q7D T-DERMAL 01/16/17 10:00 01/16/17 14:14 Miscellaneous Information 1 Q7D T-DERMAL 01/16/17 10:00 01/16/17 10:00 (Mucinex Er) 600 mg BID PO 01/16/17 21:00 01/25/17 08:41 (Oscal) 500 mg TID PO 01/17/17 13:00 01/25/17 08:41 (K-Phos) 500 mg Q12HR PO 01/17/17 14:00 01/25/17 08:41 (SEROquel) 25 mg BID PO 01/17/17 21:00 01/25/17 08:41 (Lopressor) 50 mg Q8HR PO 01/19/17 14:00 01/25/17 06:12 (Trandate Inj) 10 mg Q4H PRN IV PUSH 01/20/17 08:30 01/20/17 17:27 (Levemir Inj) 5 units Q12HR SQ 01/23/17 09:00 01/25/17 08:42 Diltiazem HCl 125 mg/Sodium Chloride 125 ml @ 5 mls/hr TITRATE PRN IV 01/23/17 12:00 01/25/17 11:38 Sodium Chloride 1,000 ml @ 84 mls/hr [id number] IV 01/23/17 12:00 01/25/17 13:02 (Dilaudid Pf Inj) 0.5 mg Q4HR PRN IV PUSH 01/23/17 14:45 01/24/17 20:19 (Dilaudid Pf Inj) 0.75 mg Q4HR PRN IV PUSH 01/23/17 14:45 Heparin Sodium/ Dextrose 250 ml @ 18 mls/hr TITRATE PRN IV 01/24/17 12:00 01/25/17 04:00 (D50w (Vial) Inj) 25 ml UNSCH PRN IV PUSH 01/24/17 16:00 (NovoLIN R SUPPLEMENTAL SCALE) 1 Q6HR SQ 01/24/17 18:00 01/24/17 23:57 Cefazolin Sodium/ Dextrose 50 ml @ 150 mls/hr Q8H IV 01/24/17 20:00 01/25/17 11:27 A/P Assessment and Plan 1. Acute Metabolic Encephalopathy/Agitated Delirium, History of Previous CVA with left hemiparesis, awakes and answers properly but does not want to. 2. Severe combined Metabolic and respiratory acidosis resolved Past Tobacco dependence continue Bronchodilator, Mucolytic and incentive spirometry 3. Atrial Flutter/Fibrillation with RVR/Elevated Troponin, History of CAD and Hypertension, Cardiology following, recommended Metoprolol Warfarin, equivocal Troponin elevation, recommended by Cardiology to stop Warfarin due to non compliance. but developed left Upper extremity DVT and was recommended to start Heparin IV. 4. Acute kidney Injury on chronic kidney disease, slowly improving, Nephrology specialist following. had one single HD and improved. Mild worsening Creatinine level. 5. DM II/Dyslipidemia continue sliding scale. blood sugar stable. 6. Fever improved, his Chest X ray has some infiltrates, started on Cefepime and Azithromycin today positive blood cultures positive for MSSA and as per ID specialist switched to Cefazolin. until blood cultures negative. 7. Elevated Troponin but no angina like symptoms, normal left ventricular function by Echo recent non ischemic nuclear stress. 8. Delirium due to another medical condition, due to lack of cooperation inability to express a rational choice and inability to verbalize reason of hospitalization and nature of her medical illnesses the patient doesn't have decision making capacity to refuse medications of to leave AMA. Discussed with nurse Miss Moreira. PROPH: - Bilateral lower extremity SCDs. Heparin IV DCd, protonix 40 mg IV q12 Discharge Planning Not yet ready for discharge continue Critical care management by now. Dane Gleason MD Jan 25, 2017 13:48
--- NOTE | 2017-01-25 14:23 | HHI.NPPN ---
Subjective History of Present Illness 56-year-old male with past medical history of chronic kidney disease, diabetes mellitus, history of cerebrovascular accident with hemiparesis, ischemic heart disease, hypertension, atrial fibrillation who came to the hospital with generalized weakness and dizziness. I was called to see the patient because of very high BUN and creatinine, metabolic acidosis and hyperkalemia. The patient has known history of chronic kidney disease and his baseline creatinine seems to me in the range of 1.6 to 2.2. Additional Remarks Patient is sleepy , open eyes on command, not following any command, not in distress. Review of Systems General Constitutional: Fatigue Cardiovascular Cardiac: RODRÍGUEZ Objective Data Data 01/25/17 01/26/17 19:00 07:00 Intake Total 150 ml Balance 150 ml IV Total 150 ml Vital Signs Date Time Temp Pulse Resp B/P (MAP) Pulse Ox O2 Delivery O2 Flow Rate FiO2 01/25/17 14:00 139 01/25/17 12:00 126 01/25/17 11:38 133 140/80 01/25/17 10:00 133 01/25/17 08:00 99.1 123 20 127/71 (89) 93 01/25/17 08:00 123 01/25/17 07:55 94 Nasal Cannula 4.00 01/25/17 06:00 116 01/25/17 04:00 118 01/25/17 04:00 98.7 118 17 116/61 (79) 96 01/25/17 02:00 110 01/25/17 00:00 98.5 104 16 112/68 (83) 96 01/25/17 00:00 104 01/24/17 22:00 113 01/24/17 21:18 96 Nasal Cannula 2.00 01/24/17 20:49 18 01/24/17 20:00 98.2 113 18 108/66 (80) 95 01/24/17 20:00 113 01/24/17 18:00 115 01/24/17 16:00 74 01/24/17 16:00 99.3 103 20 112/58 (76) 94 -: 01/25/17 0543 01/25/17 0542 Microbiology 01/25/17 Aerobic Blood Culture, Received Pending 01/25/17 Anaerobic Blood Culture, Received Pending 01/25/17 Aerobic Blood Culture, Received Pending 01/25/17 Anaerobic Blood Culture, Received Pending Physical Exam General Appearance: No Acute Distress, Comfortable, Anxious Throat Throat Exam: Oral Mucosa [place] & Moist Pulmonary Resp Exam: Breath Sounds Equal, No Distress, Rhonchi, Decreased Bases, Diminished Breath Sounds Cardiology CV Exam: Arrhythmia Gastrointestinal/Abdomen GI Exam: Soft, Non-Tender, Bowel Sounds Present Extremeties Extremities Exam: Trace Edema Neurologic Neuro Exam: Alert, Awake Assessment/Plan Assessment Summary: ABNER/Acute Renal Failure, CKD Stage III Electrolyte Assessment: Hyperkalemia, Hypocalcemia, Metabolic Acidosis Problem List: (1) History of CVA (cerebrovascular accident) ICD Codes: Z86.73 - Personal history of transient ischemic attack (TIA), and cerebral infarction without residual deficits Status: Chronic (2) HTN (hypertension) ICD Codes: I10 - Essential (primary) hypertension Status: Chronic (3) Diabetes ICD Codes: E11.9 - Type 2 diabetes mellitus without complications Status: Acute (4) Metabolic acidemia ICD Codes: E87.2 - Acidosis (5) Hyperkalemia ICD Codes: E87.5 - Hyperkalemia Status: Acute (6) Acute renal failure ICD Codes: N17.9 - Acute kidney failure, unspecified Status: Acute Plan Patient has chronic kidney disease and develop ABNER. Also had metabolic acidosis and Hyperkalemia. Patient has HD 1 session then ARF resolved ATN resolving 1/2 NS at 84 cc/hr Creatinine increase slightly, Not eating well, has abd. distension. Abd. x-ray done and noted. Problem Qualifiers (1) HTN (hypertension): Qualified Codes: I10 - Essential (primary) hypertension (2) Diabetes: (3) Acute renal failure: Qualified Codes: N17.9 - Acute kidney failure, unspecified Umair Jiang MD Jan 25, 2017 14:23
--- NOTE | 2017-01-25 15:08 | RADRPT ---
EXAM DATE/TIME: 01/25/2017 14:33 [facility] COMPARISON: ABDOMEN SINGLE VIEW, January 18, 2017, 8:02. INDICATIONS : Distention MEDICAL HISTORY : Hypertension. Cerebrovascular accident. Myocardial infarction. Coronaryartery disease. Atrial fibrill ation. Diabetes SURGICAL HISTORY : Arm surgery. Throat surgery. ENCOUNTER: Initial ACUITY: 2 weeks PAIN SCORE: 0/10 LOCATION: Abdomen FINDINGS: Examination of the abdomen demonstrates a normal bowel gas pattern. No free air is identified. No o rganomegaly is evident. Osseous structures are intact. CONCLUSION: Nonspecific, nonobstructive bowel gas pattern. Scot Sung MD on January 25, 2017 at 15:05 Board Certified Radiologist. This report was verified electronically.
[2017-01-25] MEDS: HYDROmorphone HCL PF 2 MG/ML VIAL IV PUSH PRN (17:57)
[2017-01-25 18:33] LABS: APTT (PATIENT) 51.3 SEC (24.3-30.1)
[2017-01-25] MEDS: ATORVASTATIN 80 MG TAB PO SCH (19:39)
[2017-01-26] VITALS (12 sets, daily range): BP systolic 98–139; BP diastolic 55–68; PULSE 119–142; RESP 16–37; TEMP 98.7–100.7; O2SAT 89–95
[2017-01-26] MEDS: HYDROmorphone HCL PF 2 MG/ML VIAL IV PUSH PRN ×2 (02:17→19:16)
[2017-01-26] MEDS: METOCLOPRAMIDE HCL 10 MG/2 ML VIAL IV PUSH SCH ×3 (02:17→17:44)
[2017-01-26] MEDS: CHLORHEXIDINE GLUCONATE 2 % 1 PACK (2 CLOTHS) TOP SCH (02:17)
[2017-01-26] MEDS: ceFAZolin 2 GM PREMIX 50 ML IV SCH ×3 (02:17→22:28)
[2017-01-26 03:31] LABS: APTT (PATIENT) 90.5 SEC (24.3-30.1)
[2017-01-26] MEDS: INSULIN NovoLIN REGULAR SUPPLEMENTAL SCALE SQ SCH ×4 (06:00→17:49)
[2017-01-26] MEDS: METOPROLOL TARTRATE 50 MG TAB PO SCH ×3 (06:00→22:00)
[2017-01-26] MEDS ORDERED: METOPROLOL TARTRATE 5 MG/5 ML VIAL IV PUSH ONE (06:00)
[2017-01-26] MEDS: INSULIN DETEMIR 100 UNITS/ML VIAL SQ SCH ×2 (08:02→21:00)
[2017-01-26] MEDS: POTASSIUM PHOSPHATE MONOBASIC 500 MG TAB PO SCH ×2 (08:02→21:00)
[2017-01-26] MEDS: QUEtiapine FUMARATE 25 MG TAB PO SCH ×2 (08:02→21:00)
[2017-01-26] MEDS: ASPIRIN EC 81 MG TABEC PO SCH (08:02)
[2017-01-26] MEDS: guaiFENesin E.R. 600 MG TAB PO SCH ×2 (08:02→21:00)
[2017-01-26] MEDS: DOCUSATE SODIUM 50 MG/SENNA 8.6 MG TAB PO SCH ×2 (08:05→21:00)
[2017-01-26] MEDS: SODIUM CHLORIDE 0.9% FLUSH 10 ML FLUSH IV FLUSH SCH ×2 (08:06→22:28)
[2017-01-26] MEDS: ACETAMINOPHEN 325 MG TAB PO PRN (08:20)
[2017-01-26 10:37] LABS: BASOPHIL % 0.2 % (0.0-2.0); EOSINOPHIL # 0.1 TH/MM3 (0-0.4); EOSINOPHIL % 0.9 % (0.0-4.0); HEMO FLAGS DIFF FINAL; LYMPH % 6.8 % (9.0-44.0); LYMPHOCYTE # 1.1 TH/MM3 (1.0-4.8); MEAN CELL VOLUME 87.6 FL (80.0-100.0); MEAN CORPUSCULAR HEMOGLOBIN 29.1 PG (27.0-34.0); MEAN CORPUSCULAR HGB CONC 33.2 % (32.0-36.0); MONO % 5.7 % (0.0-8.0); NEUT % 86.4 % (16.0-70.0); PLATELET COUNT 264 TH/MM3 (150-450); RED BLOOD COUNT 2.86 MIL/MM3 (4.50-5.90); RED CELL DISTRIBUTION WIDTH 14.7 % (11.6-17.2); WHITE BLOOD COUNT 16.2 TH/MM3 (4.0-11.0)
[2017-01-26 10:50] LABS: BICARBONATE 25.2 MEQ/L (21.0-32.0); MAGNESIUM 1.7 MG/DL (1.5-2.5)
--- NOTE | 2017-01-26 11:10 | HHI.NPPN ---
Subjective History of Present Illness 56-year-old male with past medical history of chronic kidney disease, diabetes mellitus, history of cerebrovascular accident with hemiparesis, ischemic heart disease, hypertension, atrial fibrillation who came to the hospital with generalized weakness and dizziness. I was called to see the patient because of very high BUN and creatinine, metabolic acidosis and hyperkalemia. The patient has known history of chronic kidney disease and his baseline creatinine seems to me in the range of 1.6 to 2.2. Additional Remarks Patient is sleepy , open eyes on command, not following any command, not in distress. Review of Systems General Constitutional: Fatigue Cardiovascular Cardiac: RODRÍGUEZ Objective Data Data 01/26/17 01/27/17 19:00 07:00 Intake Total 50 ml Balance 50 ml IV Total 50 ml Vital Signs Date Time Temp Pulse Resp B/P (MAP) Pulse Ox O2 Delivery O2 Flow Rate FiO2 01/26/17 10:00 125 01/26/17 08:00 129 01/26/17 08:00 100.7 129 37 114/59 (77) 94 01/26/17 06:00 119 01/26/17 04:00 98.8 136 16 98/60 (73) 95 01/26/17 04:00 136 01/26/17 02:47 16 01/26/17 02:00 128 01/26/17 00:00 98.7 120 17 111/68 (82) 94 01/26/17 00:00 120 01/25/17 22:28 130 98/57 01/25/17 22:00 113 01/25/17 21:34 95 Nasal Cannula 4.00 01/25/17 20:00 111 01/25/17 20:00 98.5 111 18 98/57 (71) 94 01/25/17 18:00 130 01/25/17 16:00 127 01/25/17 16:00 99.4 127 20 121/75 (90) 92 01/25/17 14:00 139 01/25/17 12:00 126 01/25/17 12:00 99.3 126 22 127/69 (88) 93 01/25/17 11:38 133 140/80 -: 01/26/17 0958 01/26/17 0958 Physical Exam General Appearance: No Acute Distress, Comfortable, Anxious Throat Throat Exam: Oral Mucosa [place] & Moist Pulmonary Resp Exam: Breath Sounds Equal, No Distress, Rhonchi, Decreased Bases, Diminished Breath Sounds Cardiology CV Exam: Arrhythmia Gastrointestinal/Abdomen GI Exam: Soft, Non-Tender, Bowel Sounds Present Extremeties Extremities Exam: Trace Edema Neurologic Neuro Exam: Alert, Awake Assessment/Plan Assessment Summary: ABNER/Acute Renal Failure, CKD Stage III Electrolyte Assessment: Hyperkalemia, Hypocalcemia, Metabolic Acidosis Problem List: (1) History of CVA (cerebrovascular accident) ICD Codes: Z86.73 - Personal history of transient ischemic attack (TIA), and cerebral infarction without residual deficits Status: Chronic (2) HTN (hypertension) ICD Codes: I10 - Essential (primary) hypertension Status: Chronic (3) Diabetes ICD Codes: E11.9 - Type 2 diabetes mellitus without complications Status: Acute (4) Metabolic acidemia ICD Codes: E87.2 - Acidosis (5) Hyperkalemia ICD Codes: E87.5 - Hyperkalemia Status: Acute (6) Acute renal failure ICD Codes: N17.9 - Acute kidney failure, unspecified Status: Acute Plan Patient has chronic kidney disease and develop ABNER. Also had metabolic acidosis and Hyperkalemia. Patient has HD 1 session then ARF resolved ATN resolving 1/2 NS at 84 cc/hr Creatinine 2.3 MSSA on Cefazolin Not eating well, Problem Qualifiers (1) HTN (hypertension): Qualified Codes: I10 - Essential (primary) hypertension (2) Diabetes: (3) Acute renal failure: Qualified Codes: N17.9 - Acute kidney failure, unspecified Parth Ruiz MD Jan 26, 2017 11:10
[2017-01-26] MEDS: CALCIUM CARBONATE 1.25 GM (CA 500 MG) TAB PO SCH ×2 (12:02→17:44)
[2017-01-26 13:24] LABS: APTT (PATIENT) 94.5 SEC (24.3-30.1)
[2017-01-26] MEDS: DILTIAZEM 125 MG/NS 100 ML IV PRN ×2 (16:39)
--- NOTE | 2017-01-26 16:48 | HHI.PR ---
Subjective Remarks hospital product specialist following, with diagnosis of Atrial Fibrillation, recommended to stop Warfarin due to Non compliance, has elevated Troponin but no angina like symptoms, normal left ventricular function by Echo recent non ischemic nuclear stress. Psychiatry specialist following with diagnosis of Delirium due to another medical condition, due to lack of cooperation inability to express a rational choice and inability to verbalize reason of hospitalization and nature of her medical illnesses the patient doesn't have decision making capacity to refuse medications of to leave AMA. 01/21: patient stable during the day, during the afternoon he started with fever for this reason was asked for CXR, blood cultures lactic acid, new CBC, UA and follow results. no nausea, vomit or diarrhea. 01/22: Seen in his bedroom with nurse Miss Cabello, no changes no nausea, vomit or diarrhea, the patient has not the drive to help for his Care I think related to Psychiatric Issues more than organic disease, will be organic if continue with this behavior. at this time somnolent but awakes and engage in conversation. 01/23: patient seen in his bedroom, continue Lethargic, continue Febrile seen with nurse Miss Moreira, asked for ID specialist consult and compound specialist evaluation today, no nausea, vomit or diarrhea 01/24: Seen in his bedroom and discussed with nurse Mr. Tony, the patient has Persistent MSSA Bacteremia, antibiotics changed to Cefazolin and continue BC as per ID specialist, continue refusing his by mouth medicines. 01/25: Patient in his bedroom with nurse, discussed with Mr. Robbins no new issues , continue Atrial Fibrillation with RVR, not Improving with Cardizem. patient non compliant with his medicines he is on Metoprolol but not taking it, but today took it for the nurse. no nausea, vomit or diarrhea Objective Vital Signs Date Time Temp Pulse Resp B/P (MAP) Pulse Ox O2 Delivery O2 Flow Rate FiO2 01/26/17 16:39 140 129/62 01/26/17 16:00 135 01/26/17 14:00 132 01/26/17 12:00 139 01/26/17 12:00 98.9 139 24 100/55 (70) 94 01/26/17 10:00 125 01/26/17 08:00 129 01/26/17 08:00 100.7 129 37 114/59 (77) 94 01/26/17 06:00 119 01/26/17 04:00 98.8 136 16 98/60 (73) 95 01/26/17 04:00 136 01/26/17 02:47 16 01/26/17 02:00 128 01/26/17 00:00 98.7 120 17 111/68 (82) 94 01/26/17 00:00 120 01/25/17 22:28 130 98/57 01/25/17 22:00 113 01/25/17 21:34 95 Nasal Cannula 4.00 01/25/17 20:00 111 01/25/17 20:00 98.5 111 18 98/57 (71) 94 01/25/17 18:00 130 I/O 01/25/17 01/25/17 01/25/17 01/26/17 01/26/17 01/26/17 07:00 15:00 23:00 07:00 15:00 23:00 Intake Total 120 ml 150 ml 2684 ml 60 ml 50 ml Output Total 500 ml 1500 ml 450 ml Balance -380 ml 150 ml 1184 ml -390 ml 50 ml Intake Oral 120 ml 300 ml 60 ml IV Total 150 ml 2384 ml 50 ml Output Urine Total 500 ml 1500 ml 450 ml # Bowel Movements 0 0 0 Result Diagram: 01/26/17 0958 01/26/17 0958 Imaging Last Impressions Abdomen X-Ray 01/25/17 0000 Signed Impressions: Service Date/Time: Wednesday, January 25, 2017 14:33 - CONCLUSION: Nonspecific, nonobstructive bowel gas pattern. Scot Sung MD Upper Extremity Ultrasound 01/23/17 0000 Signed Impressions: Service Date/Time: Monday, January 23, 2017 17:45 - CONCLUSION: Thrombus identified within the internal jugular, subclavian, and the basilic veins. Jeyson Luciano MD Chest X-Ray 01/21/17 0000 Signed Impressions: Service Date/Time: Saturday, January 21, 2017 22:42 - CONCLUSION: New hazy opacity in both lungs with concern for ovarian edema and congestive heart failure. Jose Espinal MD Head CT 01/10/17 1257 Signed Impressions: Service Date/Time: Tuesday, January 10, 2017 13:32 - CONCLUSION: No acute disease. Jermaine Malone Jr., MD Renal Ultrasound 01/10/17 0000 Signed Impressions: Service Date/Time: Tuesday, January 10, 2017 17:01 - CONCLUSION: Normal examination. Jermaine Malone Jr., MD Procedures Hemodialysis. Other Results Laboratory Tests Test 01/10/17 16:57 01/10/17 18:00 01/10/17 20:17 01/11/17 03:40 Blood Gas Inspired Oxygen 21 % Nasal Screen MRSA (PCR) MRSA NOT DETECTED Hepatitis A IgM Antibody NEGATIVE Hepatitis B Surface Antigen NEGATIVE Hepatitis B Core IgM Antibody NEGATIVE Hepatitis C Antibody NEGATIVE Troponin I 2.31 NG/ML Test 01/15/17 07:20 01/17/17 05:10 01/21/17 12:50 01/22/17 00:15 Urine Amorphous Sediment OCC Urine Mucus FEW /lpf Hemoglobin A1c 7.0 % Free Thyroxine 1.77 NG/DL Thyroid Stimulating Hormone 3rd Gen 1.190 uIU/ML Protein Corrected Calcium 7.2 MG/DL Lactic Acid Level 1.1 mmol/L Test 01/22/17 22:39 01/23/17 03:25 01/23/17 05:50 01/23/17 07:52 Basophils % 1 % Metamyelocytes 1 % Ionized Calcium 5.1 mg/dL Toxic Granulation 1+ Dohle Bodies PRESENT Blood Urea Nitrogen 33 MG/DL Creatinine 2.20 MG/DL Random Glucose 176 MG/DL Total Protein 6.8 GM/DL Albumin 2.0 GM/DL Calcium Level 7.6 MG/DL Phosphorus Level 2.0 MG/DL Alkaline Phosphatase 67 U/L Aspartate Amino Transf (AST/SGOT) 55 U/L Alanine Aminotransferase (ALT/SGPT) 28 U/L Total Bilirubin 1.1 MG/DL Sodium Level 136 MEQ/L Potassium Level 3.8 MEQ/L Chloride Level 101 MEQ/L Carbon Dioxide Level 26.9 MEQ/L Blood Gas Puncture Site LT RADIAL Blood Gas Patient Temperature 98.6 Blood Gas HCO3 26 mmol/L Blood Gas Base Excess 2.3 mmol/L Blood Gas Oxygen Saturation 91 % Arterial Blood pH 7.49 Arterial Blood Partial Pressure CO2 34 mmHg Arterial Blood Partial Pressure O2 67 mmHg Arterial Blood Oxygen Content 13.0 Vol % Arterial Blood Carboxyhemoglobin 1.0 % Arterial Blood Methemoglobin 1.3 % Blood Gas Hemoglobin 10.1 G/DL Oxygen Delivery Device NASAL CANNULA Blood Gas Liter Flow 4 L/M Nucleated Red Blood Cells 2 /100 WBC Plasma Cells 1 % Red Cell Morphology Comment NORMAL Hematology Comments Test 01/23/17 14:26 01/23/17 22:40 01/25/17 07:52 01/26/17 09:58 Urine Color YELLOW Urine Turbidity HAZY Urine pH 6.0 Urine Specific [place] 1.015 Urine Protein 100 mg/dL Urine Glucose (UA) NEG mg/dL Urine Ketones 10 mg/dL Urine Occult Blood MOD Urine Nitrite NEG Urine Bilirubin NEG Urine Urobilinogen LESS THAN 2.0 MG/DL Urine Leukocyte Esterase LARGE Urine RBC LESS THAN 1 /hpf Urine WBC 158 /hpf Urine WBC Clumps FEW Urine Squamous Epithelial Cells 1 /hpf Urine Bacteria FEW /hpf Microscopic Urinalysis Comment CULTURE INDICATED Differential Total Cells Counted 100 Neutrophils % (Manual) 89 % Band Neutrophils % 3 % Lymphocytes % 4 % Monocytes % 3 % Eosinophils % 1 % Neutrophils # (Manual) 20.6 TH/MM3 Toxic Vacuolation PRESENT Platelet Estimate NORMAL Platelet Morphology Comment NORMAL Prothrombin Time 17.1 SEC Prothromb Time International Ratio 1.5 RATIO White Blood Count 16.2 TH/MM3 Red Blood Count 2.86 MIL/MM3 Hemoglobin 8.3 GM/DL Hematocrit 25.0 % Mean Corpuscular Volume 87.6 FL Mean Corpuscular Hemoglobin 29.1 PG Mean Corpuscular Hemoglobin Concent 33.2 % Red Cell Distribution Width 14.7 % Platelet Count 264 TH/MM3 Mean Platelet Volume 8.9 FL Neutrophils (%) (Auto) 86.4 % Lymphocytes (%) (Auto) 6.8 % Monocytes (%) (Auto) 5.7 % Eosinophils (%) (Auto) 0.9 % Basophils (%) (Auto) 0.2 % Neutrophils # (Auto) 14.0 TH/MM3 Lymphocytes # (Auto) 1.1 TH/MM3 Monocytes # (Auto) 0.9 TH/MM3 Eosinophils # (Auto) 0.1 TH/MM3 Basophils # (Auto) 0.0 TH/MM3 CBC Comment DIFF FINAL Differential Comment Blood Urea Nitrogen 28 MG/DL Creatinine 2.39 MG/DL Random Glucose 96 MG/DL Calcium Level 7.5 MG/DL Magnesium Level 1.7 MG/DL Sodium Level 139 MEQ/L Potassium Level 4.0 MEQ/L Chloride Level 107 MEQ/L Carbon Dioxide Level 25.2 MEQ/L Anion Gap 7 MEQ/L Estimat Glomerular Filtration Rate 34 ML/MIN Test 01/26/17 12:04 Activated Partial Thromboplast Time 94.5 SEC Objective Remarks GENERAL: Alert, no acute distress. CV: Irregular rate with tachycardia and irregular rhythm. No rubs murmurs or gallops. Resp: Clear to all station bilaterally Abdomen: Soft but distended. Negative tenderness palpation. No peritoneal signs. Extremity negative for any edema. Neuro: Alert non oriented. Medications and IVs Current Medications Medications (Trade) Dose Ordered Sig/Mansi Route Start Time Stop Time Status Last Admin (Tylenol) 650 mg Q6H PRN PO 01/10/17 17:00 01/26/17 08:20 (Proair Hfa Inh) 2 puff Q6H PRN INH 01/10/17 17:00 (Lipitor) 80 mg HS PO 01/10/17 21:00 01/25/17 19:39 (Nitrostat Sl) 0.4 mg Q3H PRN SL 01/10/17 17:00 (Ecotrin Ec) 81 mg DAILY PO 01/10/17 17:00 01/26/17 08:02 (NS Flush) 2 ml BID IV FLUSH 01/10/17 21:00 01/26/17 08:06 Miscellaneous Information 1 Q361D XX 01/10/17 17:15 (Chlorhexidine 2% Cloth) Taper DAILY@04 TOP 01/11/17 04:00 01/07/18 03:59 01/26/17 02:17 (Chlorhexidine 2% Cloth) 3 pack UNSCH PRN TOP 01/10/17 17:15 (Afia-Colace) 1 tab BID PO 01/10/17 21:00 01/25/17 19:40 (Milk Of Magnesia Liq) 30 ml Q12H PRN PO 01/10/17 17:15 (Senokot) 17.2 mg Q12H PRN PO 01/10/17 17:15 (Dulcolax Supp) 10 mg DAILY PRN RECTAL 01/10/17 17:15 (Lactulose Liq) 30 ml DAILY PRN PO 01/10/17 17:15 Sodium Chloride 1,000 ml @ 0 mls/hr Q0M PRN OTHER 01/10/17 17:47 01/10/17 22:05 Sodium Chloride 1,000 ml @ 200 mls/hr Q5H PRN IV 01/10/17 17:47 Sodium Chloride 1,000 ml @ 0 mls/hr Q0M PRN OTHER 01/10/17 17:47 (Mannitol Inj) 12.5 gm UNSCH PRN IV 01/10/17 18:00 Albumin Human 100 ml @ 60 mls/hr UNSCH PRN IV 01/10/17 18:00 (NS Flush) 5 ml UNSCH PRN IV FLUSH 01/10/17 18:00 (Heparin Inj) UNSCH PRN .XX 01/10/17 18:00 (Gentamicin (Dialysis) Inj) 20 mg UNSCH PRN OTHER 01/10/17 18:00 01/10/17 22:03 (Zofran Inj) 4 mg UNSCH PRN IV PUSH 01/10/17 18:00 01/18/17 08:51 (Tylenol) 650 mg UNSCH PRN PO 01/10/17 18:00 01/24/17 01:28 (Benadryl) 25 mg UNSCH PRN PO 01/10/17 18:00 (Nitrostat Sl) 0.4 mg UNSCH PRN SL 01/10/17 18:00 (Catapres) 0.1 mg UNSCH PRN PO 01/10/17 18:00 01/15/17 02:07 (Gelfoam 12 Mm/7 Mm Top) 1 foam UNSCH PRN TOP 01/10/17 18:00 Dexmedetomidine HCl 200 mcg/ Sodium Chloride 52 ml @ 5.46 mls/hr TITRATE PRN IV 01/11/17 00:00 01/12/17 14:53 (Haldol Inj) 5 mg Q4H PRN IV 01/12/17 17:00 01/20/17 10:02 (Reglan Inj) 5 mg Q8H IV PUSH 01/15/17 10:00 01/26/17 08:08 (Apresoline Inj) 10 mg Q4H PRN IV PUSH 01/15/17 10:00 Potassium Chloride 100 ml @ 50 mls/hr Q2H IV 01/15/17 10:00 Future Hold 01/16/17 06:11 (Catapres-Tts 0.3 Mg Patch.7d) 1 patch Q7D T-DERMAL 01/16/17 10:00 01/16/17 14:14 Miscellaneous Information 1 Q7D T-DERMAL 01/16/17 10:00 01/16/17 10:00 (Mucinex Er) 600 mg BID PO 01/16/17 21:00 01/26/17 08:02 (Oscal) 500 mg TID PO 01/17/17 13:00 01/25/17 19:40 (K-Phos) 500 mg Q12HR PO 01/17/17 14:00 01/26/17 08:02 (SEROquel) 25 mg BID PO 01/17/17 21:00 01/26/17 08:02 (Lopressor) 50 mg Q8HR PO 01/19/17 14:00 01/26/17 08:02 (Trandate Inj) 10 mg Q4H PRN IV PUSH 01/20/17 08:30 01/20/17 17:27 (Levemir Inj) 5 units Q12HR SQ 01/23/17 09:00 01/26/17 08:02 Diltiazem HCl 125 mg/Sodium Chloride 125 ml @ 5 mls/hr TITRATE PRN IV 01/23/17 12:00 01/26/17 16:39 Sodium Chloride 1,000 ml @ 84 mls/hr [id number] IV 01/23/17 12:00 01/25/17 22:28 (Dilaudid Pf Inj) 0.5 mg Q4HR PRN IV PUSH 01/23/17 14:45 01/26/17 02:17 (Dilaudid Pf Inj) 0.75 mg Q4HR PRN IV PUSH 01/23/17 14:45 01/25/17 17:57 Heparin Sodium/ Dextrose 250 ml @ 18 mls/hr TITRATE PRN IV 01/24/17 12:00 01/25/17 04:00 (D50w (Vial) Inj) 25 ml UNSCH PRN IV PUSH 01/24/17 16:00 (NovoLIN R SUPPLEMENTAL SCALE) 1 Q6HR SQ 01/24/17 18:00 01/24/17 23:57 Cefazolin Sodium/ Dextrose 50 ml @ 150 mls/hr Q8H IV 01/24/17 20:00 01/26/17 12:01 A/P Assessment and Plan 1. Acute Metabolic Encephalopathy/Agitated Delirium, History of Previous CVA with left hemiparesis, awake and alert today. 2. Severe combined Metabolic and respiratory acidosis resolved Past Tobacco dependence continue Bronchodilator, Mucolytic and incentive spirometry 3. Atrial Flutter/Fibrillation with RVR/Elevated Troponin, History of CAD and Hypertension, Cardiology following, recommended Metoprolol Warfarin, equivocal Troponin elevation, recommended by Cardiology to stop Warfarin due to non compliance. but developed left Upper extremity DVT and was recommended to start Heparin IV. 4. DVT of the left arm on heparin 5. DM II/Dyslipidemia continue sliding scale. blood sugar stable. 6. Fever improved, his Chest X ray has some infiltrates, started on Cefepime and Azithromycin today positive blood cultures positive for MSSA and as per ID specialist switched to Cefazolin. until blood cultures negative. 7. Elevated Troponin but no angina like symptoms, normal left ventricular function by Echo recent non ischemic nuclear stress. 8. Delirium due to another medical condition, due to lack of cooperation inability to express a rational choice and inability to verbalize reason of hospitalization and nature of her medical illnesses the patient doesn't have decision making capacity to refuse medications of to leave AMA. 9. Acute kidney Injury on chronic kidney disease, slowly improving, Nephrology specialist following. had one single HD and improved. Mild worsening Creatinine level. Discussed with nurse Mr. Robbins PROPH: - Bilateral lower extremity SCDs. Heparin IV DCd, protonix 40 mg IV q12 Discharge Planning Not yet ready for discharge continue Critical care management by now. Dane Gleason MD Jan 26, 2017 16:48
[2017-01-26 17:49] LABS: APTT (PATIENT) 68.5 SEC (24.3-30.1)
--- NOTE | 2017-01-26 17:59 | HHI.HCPN ---
Reason for visit a. To assist with evaluation and management of symptoms including: pain, weakness. b. To assist medical decision maker(s) with: better understanding of current medical conditions; weighing benefits/burdens of medical treatment options; making medical treatment decisions. . Subjective/Interval History Patient seen and examined in ICU. He is lethargic, arousable. Answers some simple questions. He denies pain and shortness or breath. He did not eat breakfast today. Temp 100.7. Tachycardic rate 130s.On oxygen via NC 4 LPM. Creatinine 2.39. On heparin drip. . Family/friend interactions No family at bedside. . Advance Directives Living Will: Never completed Health Care Surrogate: Never completed Durable Power of Paralegal Specialist: Never completed Advance Directive Specifics Health Care Surrogate(s): Patient is incapacitated to make his own health care decisions, uncertain if he will regain capacity. Single. No children. Mother in a group home with underlying schizophrenia, not capacitated herself. Father . 2 sisters and one brother. 2 sisters, Lizeth and Alejandrina do not wish to serve as healthcare proxy decision makers. Therefore, healthcare proxy decision-making will fall to the patient's brother,Isabela Andrews, he is willing to serve in this role. . Significant change in goals: FULL CODE. Goals remain aggressive. . Objective Vital Signs Date Time Temp Pulse Resp B/P (MAP) Pulse Ox O2 Delivery O2 Flow Rate FiO2 01/26/17 16:39 140 129/62 01/26/17 16:00 99.4 135 27 139/63 (88) 91 01/26/17 16:00 135 01/26/17 14:00 132 01/26/17 12:00 139 01/26/17 12:00 98.9 139 24 100/55 (70) 94 01/26/17 10:00 125 01/26/17 08:00 129 01/26/17 08:00 100.7 129 37 114/59 (77) 94 01/26/17 06:00 119 01/26/17 04:00 98.8 136 16 98/60 (73) 95 01/26/17 04:00 136 01/26/17 02:47 16 01/26/17 02:00 128 01/26/17 00:00 98.7 120 17 111/68 (82) 94 01/26/17 00:00 120 01/25/17 22:28 130 98/57 01/25/17 22:00 113 01/25/17 21:34 95 Nasal Cannula 4.00 01/25/17 20:00 111 01/25/17 20:00 98.5 111 18 98/57 (71) 94 01/25/17 18:00 130 Intake & Output 01/26/17 01/26/17 07:00 19:00 Intake Total 60 ml 100 ml Output Total 450 ml Balance -390 ml 100 ml Intake Oral 60 ml IV Total 100 ml Output Urine Total 450 ml # Bowel Movements 0 Physical Exam CONSTITUTIONAL/GENERAL: This is an adequately nourished patient, in no apparent distress. TUBES/LINES/DRAINS: PIV, condom catheter. SKIN: Skin temperature appropriate. Not diaphoretic. CARDIOVASCULAR: Irregular, tachycardic. RESPIRATORY/CHEST: Labored respirations, rate 30s. Thick white sputum noted with cough. Scattered course breath sounds. GASTROINTESTINAL: Abdomen soft, non-tender, nondistended. No guarding. Bowel sounds present. GENITOURINARY: Without palpable bladder distension. Catheter in place. 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 Left upper extremity edema, new. NEUROLOGICAL: lethargic, arousable, answers simple questions. PSYCHIATRIC: lethargic. . Diagnostic Tests Laboratory Laboratory Tests Test 01/23/17 18:53 01/23/17 22:40 01/24/17 05:53 01/24/17 10:17 White Blood Count 22.0 TH/MM3 (4.0-11.0) 22.4 TH/MM3 (4.0-11.0) Red Blood Count 3.41 MIL/MM3 (4.50-5.90) 3.35 MIL/MM3 (4.50-5.90) Hemoglobin 9.7 GM/DL (13.0-17.0) 9.5 GM/DL (13.0-17.0) Hematocrit 29.9 % (39.0-51.0) 29.0 % (39.0-51.0) Mean Corpuscular Volume 87.7 FL (80.0-100.0) 86.7 FL (80.0-100.0) Mean Corpuscular Hemoglobin 28.4 PG (27.0-34.0) 28.2 PG (27.0-34.0) Mean Corpuscular Hemoglobin Concent 32.4 % (32.0-36.0) 32.6 % (32.0-36.0) Red Cell Distribution Width 15.1 % (11.6-17.2) 14.3 % (11.6-17.2) Platelet Count 216 TH/MM3 (150-450) 230 TH/MM3 (150-450) Mean Platelet Volume 10.2 FL (7.0-11.0) 9.9 FL (7.0-11.0) Neutrophils (%) (Auto) 88.6 % (16.0-70.0) 90.6 % (16.0-70.0) Lymphocytes (%) (Auto) 4.6 % (9.0-44.0) 3.0 % (9.0-44.0) Monocytes (%) (Auto) 6.2 % (0.0-8.0) 5.9 % (0.0-8.0) Eosinophils (%) (Auto) 0.2 % (0.0-4.0) 0.2 % (0.0-4.0) Basophils (%) (Auto) 0.4 % (0.0-2.0) 0.3 % (0.0-2.0) Neutrophils # (Auto) 19.5 TH/MM3 (1.8-7.7) 20.3 TH/MM3 (1.8-7.7) Lymphocytes # (Auto) 1.0 TH/MM3 (1.0-4.8) 0.7 TH/MM3 (1.0-4.8) Monocytes # (Auto) 1.4 TH/MM3 (0-0.9) 1.3 TH/MM3 (0-0.9) Eosinophils # (Auto) 0.1 TH/MM3 (0-0.4) 0.1 TH/MM3 (0-0.4) Basophils # (Auto) 0.1 TH/MM3 (0-0.2) 0.1 TH/MM3 (0-0.2) CBC Comment DIFF FINAL AUTO DIFF Differential Comment FINAL DIFF MANUAL Differential Total Cells Counted 100 Neutrophils % (Manual) 89 % (16-70) Band Neutrophils % 3 % (0-6) Lymphocytes % 4 % (9-44) Monocytes % 3 % (0-8) Eosinophils % 1 % (0-4) Neutrophils # (Manual) 20.6 TH/MM3 (1.8-7.7) Toxic Vacuolation PRESENT (NONE SEEN) Platelet Estimate NORMAL (NORMAL) Platelet Morphology Comment NORMAL (NORMAL) Blood Urea Nitrogen 29 MG/DL (7-18) Creatinine 2.00 MG/DL (0.60-1.30) Random Glucose 200 MG/DL (74-106) Calcium Level 7.5 MG/DL (8.5-10.1) Magnesium Level 1.7 MG/DL (1.5-2.5) Sodium Level 137 MEQ/L (136-145) Potassium Level 3.9 MEQ/L (3.5-5.1) Chloride Level 105 MEQ/L (98-107) Carbon Dioxide Level 25.3 MEQ/L (21.0-32.0) Anion Gap 7 MEQ/L (5-15) Estimat Glomerular Filtration Rate 42 ML/MIN (>89) Prothrombin Time 20.8 SEC (9.8-11.6) Prothromb Time International Ratio 1.8 RATIO Activated Partial Thromboplast Time 41.2 SEC (24.3-30.1) Test 01/24/17 12:44 01/24/17 19:40 01/24/17 22:57 01/25/17 05:42 White Blood Count 19.3 TH/MM3 (4.0-11.0) 19.0 TH/MM3 (4.0-11.0) Red Blood Count 3.12 MIL/MM3 (4.50-5.90) 2.81 MIL/MM3 (4.50-5.90) Hemoglobin 8.8 GM/DL (13.0-17.0) 8.1 GM/DL (13.0-17.0) Hematocrit 27.0 % (39.0-51.0) 24.2 % (39.0-51.0) Mean Corpuscular Volume 86.5 FL (80.0-100.0) 86.2 FL (80.0-100.0) Mean Corpuscular Hemoglobin 28.3 PG (27.0-34.0) 28.7 PG (27.0-34.0) Mean Corpuscular Hemoglobin Concent 32.7 % (32.0-36.0) 33.2 % (32.0-36.0) Red Cell Distribution Width 14.8 % (11.6-17.2) 14.7 % (11.6-17.2) Platelet Count 252 TH/MM3 (150-450) 266 TH/MM3 (150-450) Mean Platelet Volume 9.6 FL (7.0-11.0) 9.2 FL (7.0-11.0) Prothrombin Time 20.1 SEC (9.8-11.6) Prothromb Time International Ratio 1.8 RATIO Activated Partial Thromboplast Time 41.5 SEC (24.3-30.1) 113.7 SEC (24.3-30.1) 73.5 SEC (24.3-30.1) 170.4 SEC (24.3-30.1) Blood Urea Nitrogen 31 MG/DL (7-18) Creatinine 2.49 MG/DL (0.60-1.30) Random Glucose 112 MG/DL (74-106) Calcium Level 7.5 MG/DL (8.5-10.1) Sodium Level 137 MEQ/L (136-145) Potassium Level 3.6 MEQ/L (3.5-5.1) Chloride Level 103 MEQ/L (98-107) Carbon Dioxide Level 24.9 MEQ/L (21.0-32.0) Anion Gap 9 MEQ/L (5-15) Estimat Glomerular Filtration Rate 33 ML/MIN (>89) Test 01/25/17 05:43 01/25/17 07:52 01/25/17 12:55 01/25/17 18:03 White Blood Count 19.1 TH/MM3 (4.0-11.0) Red Blood Count 2.79 MIL/MM3 (4.50-5.90) Hemoglobin 7.8 GM/DL (13.0-17.0) Hematocrit 24.1 % (39.0-51.0) Mean Corpuscular Volume 86.4 FL (80.0-100.0) Mean Corpuscular Hemoglobin 28.1 PG (27.0-34.0) Mean Corpuscular Hemoglobin Concent 32.6 % (32.0-36.0) Red Cell Distribution Width 14.8 % (11.6-17.2) Platelet Count 271 TH/MM3 (150-450) Mean Platelet Volume 9.3 FL (7.0-11.0) Prothrombin Time 17.1 SEC (9.8-11.6) Prothromb Time International Ratio 1.5 RATIO Activated Partial Thromboplast Time 116.5 SEC (24.3-30.1) 106.4 SEC (24.3-30.1) 51.3 SEC (24.3-30.1) Test 01/26/17 02:06 01/26/17 09:58 01/26/17 12:04 01/26/17 16:50 Activated Partial Thromboplast Time 90.5 SEC (24.3-30.1) 94.5 SEC (24.3-30.1) White Blood Count 16.2 TH/MM3 (4.0-11.0) Red Blood Count 2.86 MIL/MM3 (4.50-5.90) Hemoglobin 8.3 GM/DL (13.0-17.0) Hematocrit 25.0 % (39.0-51.0) Mean Corpuscular Volume 87.6 FL (80.0-100.0) Mean Corpuscular Hemoglobin 29.1 PG (27.0-34.0) Mean Corpuscular Hemoglobin Concent 33.2 % (32.0-36.0) Red Cell Distribution Width 14.7 % (11.6-17.2) Platelet Count 264 TH/MM3 (150-450) Mean Platelet Volume 8.9 FL (7.0-11.0) Neutrophils (%) (Auto) 86.4 % (16.0-70.0) Lymphocytes (%) (Auto) 6.8 % (9.0-44.0) Monocytes (%) (Auto) 5.7 % (0.0-8.0) Eosinophils (%) (Auto) 0.9 % (0.0-4.0) Basophils (%) (Auto) 0.2 % (0.0-2.0) Neutrophils # (Auto) 14.0 TH/MM3 (1.8-7.7) Lymphocytes # (Auto) 1.1 TH/MM3 (1.0-4.8) Monocytes # (Auto) 0.9 TH/MM3 (0-0.9) Eosinophils # (Auto) 0.1 TH/MM3 (0-0.4) Basophils # (Auto) 0.0 TH/MM3 (0-0.2) CBC Comment DIFF FINAL Differential Comment Blood Urea Nitrogen 28 MG/DL (7-18) Creatinine 2.39 MG/DL (0.60-1.30) Random Glucose 96 MG/DL (74-106) Calcium Level 7.5 MG/DL (8.5-10.1) Magnesium Level 1.7 MG/DL (1.5-2.5) Sodium Level 139 MEQ/L (136-145) Potassium Level 4.0 MEQ/L (3.5-5.1) Chloride Level 107 MEQ/L (98-107) Carbon Dioxide Level 25.2 MEQ/L (21.0-32.0) Anion Gap 7 MEQ/L (5-15) Estimat Glomerular Filtration Rate 34 ML/MIN (>89) Result Diagram: 01/26/1758 01/26/1758 Microbiology Microbiology Date/Time Source Procedure Growth Status 01/25/17 05:42 Blood Peripheral Aerobic Blood Culture - Preliminary NO GROWTH IN 1 DAY Resulted 01/25/17 05:42 Blood Peripheral Anaerobic Blood Culture - Preliminary NO GROWTH IN 1 DAY Resulted 01/25/17 05:36 Blood Peripheral Aerobic Blood Culture - Preliminary NO GROWTH IN 1 DAY Resulted 01/25/17 05:36 Blood Peripheral Anaerobic Blood Culture - Preliminary NO GROWTH IN 1 DAY Resulted Imaging Last Impressions Abdomen X-Ray 01/25/17 0000 Signed Impressions: Service Date/Time: Wednesday, January 25, 2017 14:33 - CONCLUSION: Nonspecific, nonobstructive bowel gas pattern. Scot Sung MD Upper Extremity Ultrasound 01/23/17 0000 Signed Impressions: Service Date/Time: Monday, January 23, 2017 17:45 - CONCLUSION: Thrombus identified within the internal jugular, subclavian, and the basilic veins. Jeyson Luciano MD Chest X-Ray 01/21/17 0000 Signed Impressions: Service Date/Time: Saturday, January 21, 2017 22:42 - CONCLUSION: New hazy opacity in both lungs with concern for ovarian edema and congestive heart failure. Jose Espinal MD Head CT 01/10/17 1257 Signed Impressions: Service Date/Time: Tuesday, January 10, 2017 13:32 - CONCLUSION: No acute disease. Jermaine Malone Jr., MD Renal Ultrasound 01/10/17 0000 Signed Impressions: Service Date/Time: Tuesday, January 10, 2017 17:01 - CONCLUSION: Normal examination. Jermaine Malone Jr., MD Assessment and Plan Disease Oriented Problem List: (1) Leukocytosis (2) Malnutrition (3) HTN (hypertension) (4) Atrial flutter (5) Acute metabolic encephalopathy (6) Acute on chronic kidney failure (7) Diabetes Symptom Scale: (1) Pain 0-10 Scale: Unable to quantify Comment: Patient not answering most questions. (2) Weakness 0-10 Scale: Unable to quantify Comment: Secondary to prior CVA, left hemiparesis Pertinent Non-Medical Issues Psychosocial: Single. No children. Disabled. Brother, Isabela Andrews is serving as healthcare proxy decision maker per [place] statutes. Spiritual: [employer]reg[employer] caroline. Legal:Patient deemed incapacitated per psychiatry to make his own health care decisions, uncertain if he will regain capacity. Single. No children. Mother in a group home with underlying schizophrenia, not capacitated herself. Father . 2 sisters and one brother. 2 sisters, Lizeth and Alejandrina do not wish to serve as healthcare proxy decision makers. Therefore, healthcare proxy decision-making will fall to the patient's brother,Isabela Andrews, he is willing to serve in this role. Ethical issues impacting care: no known concerns at this time. . Important Contacts * Isabela Andrews, brother/HCP: [phone] * Christy Colon, ex sister in law ([place] ex- - who pt trusts): * Alta Andrews, sister opted out of HCP decision-making and [phone] * Alejandrina sifuentes, sister, opted out of HCP decision [phone] * Kylee Kendall, mother, incapacitated, in SNF . Prognosis Mr. Andrews is a 56-year-old male with long history of noncompliance, refusing medication, questionable underlying psychiatric disease, admitted with acute on chronic renal failure, coronary artery disease, atrial fib/flutter refusing medications. Patient remains high risk for repeat hospitalization, further decline or even . Uncertain if patient has underlying psychiatric disease if this was treated would he be more readily open to taking medications. Will attempt to discuss with psychiatry. Family feels patient has had psychiatric issues since he was a child that were never diagnosed. . Code Status: Full Code Plan * Decision Maker: Patient deemed incapacitated per psychiatry to make his own health care decisions, uncertain if he will regain capacity. Single. No children. Mother in a group home with underlying schizophrenia, not capacitated herself. Father . 2 sisters and one brother. 2 sisters, Lizeth and Alejandrina do not wish to serve as healthcare proxy decision makers. Therefore, healthcare proxy decision-making will fall to the patient's brother, Yareli Andrews, he is willing to serve in this role. * FULL CODE - DNR revoked by Yareli (HCP) on 01/23/17. * Goals remain aggressive. * SYMPTOMS: Pain: denies pain during my visit. Weakness: debility due to prior stroke. * Palliative care will continue to follow throughout hospital course to assist with symptom management and clarification of goals as needed. . Dariana Stephen Jan 26, 2017 17:59
[2017-01-26] MEDS: ATORVASTATIN 80 MG TAB PO SCH (21:00)
--- NOTE | 2017-01-26 21:41 | HHI.IDPN ---
Subjective Subjective Remarks ID Xcover pt seen around 1930 delyed entry Pt is febrile cont to have MSSA bacteremia, though last clx are negative @ 1 day Antibiotics cefazoline Allergies: Coded Allergies: No Known Allergies (Unverified , 01/07/17) Objective . Vital Signs Date Time Temp Pulse Resp B/P (MAP) Pulse Ox O2 Delivery O2 Flow Rate FiO2 01/26/17 18:00 142 01/26/17 16:39 140 129/62 01/26/17 16:00 99.4 135 27 139/63 (88) 91 01/26/17 16:00 135 01/26/17 14:00 132 01/26/17 12:00 139 01/26/17 12:00 98.9 139 24 100/55 (70) 94 01/26/17 10:00 125 01/26/17 08:00 129 01/26/17 08:00 100.7 129 37 114/59 (77) 94 01/26/17 06:00 119 01/26/17 04:00 98.8 136 16 98/60 (73) 95 01/26/17 04:00 136 01/26/17 02:47 16 01/26/17 02:00 128 01/26/17 00:00 98.7 120 17 111/68 (82) 94 01/26/17 00:00 120 01/25/17 22:28 130 98/57 01/25/17 22:00 113 01/26/17 01/26/17 01/27/17 15:00 23:00 07:00 Intake Total 50 ml 50 ml Output Total 325 ml Balance 50 ml -275 ml IV Total 50 ml 50 ml Output Urine Total 325 ml # Bowel Movements 0 . Laboratory Tests Test 01/25/17 05:42 01/25/17 05:43 01/26/17 09:58 White Blood Count 19.0 TH/MM3 19.1 TH/MM3 16.2 TH/MM3 Red Blood Count 2.81 MIL/MM3 2.79 MIL/MM3 2.86 MIL/MM3 Hemoglobin 8.1 GM/DL 7.8 GM/DL 8.3 GM/DL Hematocrit 24.2 % 24.1 % 25.0 % Mean Corpuscular Volume 86.2 FL 86.4 FL 87.6 FL Mean Corpuscular Hemoglobin 28.7 PG 28.1 PG 29.1 PG Mean Corpuscular Hemoglobin Concent 33.2 % 32.6 % 33.2 % Red Cell Distribution Width 14.7 % 14.8 % 14.7 % Platelet Count 266 TH/MM3 271 TH/MM3 264 TH/MM3 Mean Platelet Volume 9.2 FL 9.3 FL 8.9 FL Neutrophils (%) (Auto) 86.4 % Lymphocytes (%) (Auto) 6.8 % Monocytes (%) (Auto) 5.7 % Eosinophils (%) (Auto) 0.9 % Basophils (%) (Auto) 0.2 % Neutrophils # (Auto) 14.0 TH/MM3 Lymphocytes # (Auto) 1.1 TH/MM3 Monocytes # (Auto) 0.9 TH/MM3 Eosinophils # (Auto) 0.1 TH/MM3 Basophils # (Auto) 0.0 TH/MM3 CBC Comment DIFF FINAL Differential Comment Laboratory Tests Test 01/25/17 05:42 01/26/17 09:58 Blood Urea Nitrogen 31 MG/DL 28 MG/DL Creatinine 2.49 MG/DL 2.39 MG/DL Random Glucose 112 MG/DL 96 MG/DL Calcium Level 7.5 MG/DL 7.5 MG/DL Sodium Level 137 MEQ/L 139 MEQ/L Potassium Level 3.6 MEQ/L 4.0 MEQ/L Chloride Level 103 MEQ/L 107 MEQ/L Carbon Dioxide Level 24.9 MEQ/L 25.2 MEQ/L Anion Gap 9 MEQ/L 7 MEQ/L Estimat Glomerular Filtration Rate 33 ML/MIN 34 ML/MIN Magnesium Level 1.7 MG/DL Microbiology Date/Time Source Procedure Growth Status 01/25/17 05:42 Blood Peripheral Aerobic Blood Culture - Preliminary NO GROWTH IN 1 DAY Resulted 01/25/17 05:42 Blood Peripheral Anaerobic Blood Culture - Preliminary NO GROWTH IN 1 DAY Resulted 01/25/17 05:36 Blood Peripheral Aerobic Blood Culture - Preliminary NO GROWTH IN 1 DAY Resulted 01/25/17 05:36 Blood Peripheral Anaerobic Blood Culture - Preliminary NO GROWTH IN 1 DAY Resulted Imaging Last Impressions Abdomen X-Ray 01/25/17 0000 Signed Impressions: Service Date/Time: Wednesday, January 25, 2017 14:33 - CONCLUSION: Nonspecific, nonobstructive bowel gas pattern. Scot Sung MD Upper Extremity Ultrasound 01/23/17 0000 Signed Impressions: Service Date/Time: Monday, January 23, 2017 17:45 - CONCLUSION: Thrombus identified within the internal jugular, subclavian, and the basilic veins. Jeyson Luciano MD Chest X-Ray 01/21/17 0000 Signed Impressions: Service Date/Time: Saturday, January 21, 2017 22:42 - CONCLUSION: New hazy opacity in both lungs with concern for ovarian edema and congestive heart failure. Jose Espinal MD Head CT 01/10/17 1257 Signed Impressions: Service Date/Time: Tuesday, January 10, 2017 13:32 - CONCLUSION: No acute disease. Jermaine Malone Jr., MD Renal Ultrasound 01/10/17 0000 Signed Impressions: Service Date/Time: Tuesday, January 10, 2017 17:01 - CONCLUSION: Normal examination. Jermaine Malone Jr., MD Physical Exam GENERAL: Patient is a well-nourished, well-developed male, awake and alert, not in respiratory distress. SKIN: Warm and dry. No generalized rash, no ecchymoses and no evidence of embolic lesions. HEAD: Atraumatic. Normocephalic. No temporal wasting, or tenderness. EYES: [place] conjunctiva. No petechia or hemorrhage. Pupils equal, round and reactive to light. Extraocular movements full and intact. No scleral icterus. No injection or drainage. EARS, NOSE AND THROAT: Nose without bleeding or purulent nasal discharge. No sinus tenderness. Moist mucosa, the rest of mouth exam not done, since patient not cooperative NECK: Trachea midline. Supple and not tender, no meningeal signs. Previous vascath site looks ok, dry CARDIOVASCULAR: Tachycardic, iregular rate and rhythm. No murmurs, rubs or gallops heard RESPIRATORY: Clear to auscultation. Breath sounds equal bilaterally. No rales , wheezing or rhonchi, decreased at the bases ABDOMEN: Soft, non-tender, nondistended. Bowel sounds present and normoactive. No guarding. No rebound. No organomegaly. EXTREMITIES: mild BLE edema, o cyanosis somewhat improved nonnpitting LUE edema , soft compartments : villarreal in place, cloudy urine NEUROLOGICAL: Awake and alert. L side plegic PSYCHIATRIC: calm, but not always cooperative. LINE: No evidence of infection Assessment & Plan Remarks IMPRESSION Sepsis with MSSA - had vascath placed 01/10, removed 01/15 - has LUE swelling, ?DVT - has basilar opacities, ?fluid; not coughing or congested, less likely PNA Renal failure, creatinine has improved and has good UO Previous CVA with left sided weakness Atrial fib with RVR cont cefazoline LIGIA if the new culture still positive however anticipate mcc abx use even if negative result because of very high likely infected thrombus of LUE monitor BC untill sterility achieved Jennifer Maynard MD Jan 26, 2017 21:41
[2017-01-26 23:33] LABS: APTT (PATIENT) 70.9 SEC (24.3-30.1)
[2017-01-27] VITALS (14 sets, daily range): BP systolic 94–127; BP diastolic 56–74; PULSE 101–177; RESP 24–42; TEMP 98.6–100.2; O2SAT 94–98
[2017-01-27] MEDS: DILTIAZEM 125 MG/NS 100 ML IV PRN ×6 (01:28→17:43)
[2017-01-27] MEDS: HEPARIN-D5W 25,000 U/250 ML 250 ML IV PRN (01:32)
[2017-01-27] MEDS: ceFAZolin 2 GM PREMIX 50 ML IV SCH ×3 (03:58→21:05)
[2017-01-27] MEDS: METOCLOPRAMIDE HCL 10 MG/2 ML VIAL IV PUSH SCH ×3 (03:58→17:19)
[2017-01-27] MEDS: CHLORHEXIDINE GLUCONATE 2 % 1 PACK (2 CLOTHS) TOP SCH (03:58)
[2017-01-27] MEDS: INSULIN NovoLIN REGULAR SUPPLEMENTAL SCALE SQ SCH ×4 (05:30→17:20)
[2017-01-27 05:37] LABS: HEMATOCRIT 25.4 % (39.0-51.0); MEAN CELL VOLUME 85.9 FL (80.0-100.0); MEAN CORPUSCULAR HEMOGLOBIN 28.6 PG (27.0-34.0); MEAN CORPUSCULAR HGB CONC 33.3 % (32.0-36.0); PLATELET COUNT 292 TH/MM3 (150-450); RED BLOOD COUNT 2.96 MIL/MM3 (4.50-5.90); RED CELL DISTRIBUTION WIDTH 14.7 % (11.6-17.2); REVIEW FLAG FINAL; WHITE BLOOD COUNT 16.6 TH/MM3 (4.0-11.0)
[2017-01-27 05:49] LABS: APTT (PATIENT) 75.5 SEC (24.3-30.1)
[2017-01-27] MEDS: METOPROLOL TARTRATE 50 MG TAB PO SCH ×3 (06:00→21:04)
[2017-01-27] MEDS: INSULIN DETEMIR 100 UNITS/ML VIAL SQ SCH ×2 (09:00→21:00)
[2017-01-27] MEDS: SODIUM CHLOR 0.45% 1000 ML INJ 1,000 ML IV SCH ×2 (09:04→20:20)
[2017-01-27] MEDS: SODIUM CHLORIDE 0.9% FLUSH 10 ML FLUSH IV FLUSH SCH ×2 (09:04→21:06)
--- NOTE | 2017-01-27 09:08 | HHI.IDPN ---
Subjective Subjective Remarks Is a 56-year-old male with past medical history significant for chronic kidney disease baseline creatinine 1.8-2, type 2 diabetes, history of CVA with residual left patient is a 56-year-old male, admitted to the hospital complaining of generalized weakness and dizziness for about 1 week. He apparently lives in a usp and walks with a cane, and has left-sided weakness. There is mention that he had fallen a couple times due to the weakness. There is also mention that he was not having enough by mouth intake, as well as some diarrhea. He denies any abdominal pain, any nausea or vomiting. On initial presentation patient was found to be in atrial flutter with RVR. He also has significant acidosis, and has an elevated potassium and creatinine. Patient was seen by cardiology, and his echo showed normal EF. Patient also was seen by renal, and underwent emergency hemodialysis. His hemodynamics stabilized, and the hemodialysis has been stopped. He has good urine output. Patient has been refusing a lot of his treatment. His had some problem with nausea and vomiting. He has had on and off fevers which are low- grade, however in the last probably 4 days, his fevers have been more persistent. He is complaining of pain on the right side of his trunk. There is also mention that his left upper extremity is swollen. Patient has no central line. He has a condom catheter. Chest x-ray has shown a similar opacities bilaterally. Patient was started on antibiotics, and currently on AZT mycin, cefepime, and vancomycin. Infectious disease consultation has been requested to evaluate the patient. Notes reviewed BC with MSSA Has thrombus in LUE as well as in his [facility], and [facility] Echo report noted, no vegetation mentioned Still with low grade temps BP ok D/W RN Last BC 01/25 are negative so far Antibiotics Ancef Lines PIV Past Medical History Chronic kidney disease Type 2 diabetes Hypertension Dyslipidemia Previous stroke, with residual L weakness Atrial fibrillation/flutter CAD History of PUD Past Surgical History Throat and arm surgery Allergies: Coded Allergies: No Known Allergies (Unverified , 01/07/17) Objective . Vital Signs Date Time Temp Pulse Resp B/P (MAP) Pulse Ox O2 Delivery O2 Flow Rate FiO2 01/27/17 06:00 148 01/27/17 04:00 99.5 131 25 119/58 (78) 94 01/27/17 04:00 131 01/27/17 02:00 138 01/27/17 01:28 122 121/57 01/27/17 00:00 133 01/27/17 00:00 99.8 133 42 127/57 (80) 95 01/26/17 22:00 124 01/26/17 20:00 125 01/26/17 20:00 99.6 125 22 123/67 (85) 89 01/26/17 18:00 142 01/26/17 16:39 140 129/62 01/26/17 16:00 99.4 135 27 139/63 (88) 91 01/26/17 16:00 135 01/26/17 14:00 132 01/26/17 12:00 139 01/26/17 12:00 98.9 139 24 100/55 (70) 94 01/26/17 10:00 125 . Laboratory Tests Test 01/26/17 09:58 01/27/17 05:22 White Blood Count 16.2 TH/MM3 16.6 TH/MM3 Red Blood Count 2.86 MIL/MM3 2.96 MIL/MM3 Hemoglobin 8.3 GM/DL 8.5 GM/DL Hematocrit 25.0 % 25.4 % Mean Corpuscular Volume 87.6 FL 85.9 FL Mean Corpuscular Hemoglobin 29.1 PG 28.6 PG Mean Corpuscular Hemoglobin Concent 33.2 % 33.3 % Red Cell Distribution Width 14.7 % 14.7 % Platelet Count 264 TH/MM3 292 TH/MM3 Mean Platelet Volume 8.9 FL 8.9 FL Neutrophils (%) (Auto) 86.4 % Lymphocytes (%) (Auto) 6.8 % Monocytes (%) (Auto) 5.7 % Eosinophils (%) (Auto) 0.9 % Basophils (%) (Auto) 0.2 % Neutrophils # (Auto) 14.0 TH/MM3 Lymphocytes # (Auto) 1.1 TH/MM3 Monocytes # (Auto) 0.9 TH/MM3 Eosinophils # (Auto) 0.1 TH/MM3 Basophils # (Auto) 0.0 TH/MM3 CBC Comment DIFF FINAL Differential Comment Laboratory Tests Test 01/26/17 09:58 Blood Urea Nitrogen 28 MG/DL Creatinine 2.39 MG/DL Random Glucose 96 MG/DL Calcium Level 7.5 MG/DL Magnesium Level 1.7 MG/DL Sodium Level 139 MEQ/L Potassium Level 4.0 MEQ/L Chloride Level 107 MEQ/L Carbon Dioxide Level 25.2 MEQ/L Anion Gap 7 MEQ/L Estimat Glomerular Filtration Rate 34 ML/MIN Microbiology Date/Time Source Procedure Growth Status 01/25/17 05:42 Blood Peripheral Aerobic Blood Culture - Preliminary NO GROWTH IN 1 DAY Resulted 01/25/17 05:42 Blood Peripheral Anaerobic Blood Culture - Preliminary NO GROWTH IN 1 DAY Resulted 01/25/17 05:36 Blood Peripheral Aerobic Blood Culture - Preliminary NO GROWTH IN 1 DAY Resulted 01/25/17 05:36 Blood Peripheral Anaerobic Blood Culture - Preliminary NO GROWTH IN 1 DAY Resulted Imaging Last Impressions Abdomen X-Ray 01/25/17 0000 Signed Impressions: Service Date/Time: Wednesday, January 25, 2017 14:33 - CONCLUSION: Nonspecific, nonobstructive bowel gas pattern. Scot Sung MD Upper Extremity Ultrasound 01/23/17 0000 Signed Impressions: Service Date/Time: Monday, January 23, 2017 17:45 - CONCLUSION: Thrombus identified within the internal jugular, subclavian, and the basilic veins. Jeyson Luciano MD Chest X-Ray 01/21/17 0000 Signed Impressions: Service Date/Time: Saturday, January 21, 2017 22:42 - CONCLUSION: New hazy opacity in both lungs with concern for ovarian edema and congestive heart failure. Jose Espinal MD Head CT 01/10/17 1257 Signed Impressions: Service Date/Time: Tuesday, January 10, 2017 13:32 - CONCLUSION: No acute disease. Jermaine Malone Jr., MD Renal Ultrasound 01/10/17 0000 Signed Impressions: Service Date/Time: Tuesday, January 10, 2017 17:01 - CONCLUSION: Normal examination. Jermaine Malone Jr., MD Physical Exam GENERAL: Awake and alert, not in respiratory distress. SKIN: Warm and dry. No generalized rash, no ecchymoses and no evidence of embolic lesions. HEAD: Atraumatic. Normocephalic. No temporal wasting, or tenderness. EYES: [place] conjunctiva. No petechia or hemorrhage. Pupils equal, round and reactive to light. Extraocular movements full and intact. No scleral icterus. No injection or drainage. EARS, NOSE AND THROAT: Nose without bleeding or purulent nasal discharge. No sinus tenderness. Moist mucosa NECK: Trachea midline. Supple and not tender, no meningeal signs. Previous vascath site looks ok, dry CARDIOVASCULAR: Tachycardic, irregular rate and rhythm. No murmurs, rubs or gallops heard RESPIRATORY: Clear to auscultation. Breath sounds equal bilaterally. No rales , wheezing or rhonchi, decreased at the bases ABDOMEN: Soft, non-tender, nondistended. Bowel sounds present and normoactive. No guarding. No rebound. No organomegaly. EXTREMITIES: mild BLE edema, no cyanosis. LUE is very swollen : Condom cath in place NEUROLOGICAL: Awake and alert. L side plegic PSYCHIATRIC: calm, cooperative this morning LINE: No evidence of infection Assessment & Plan Remarks IMPRESSION Sepsis with MSSA - had vascath placed 01/10, removed 01/15 - has DVT LUE including LIJ and LSC, and previously had vascath and suspicious for infected thrombophlebitis - has basilar opacities, ?fluid; not coughing or congested, less likely PNA Renal failure, creatinine has improved and has good UO Previous CVA with left sided weakness Atrial fib with RVR Leukocytosis PLAN Continue cefazolin ? LIGIA if the new culture still positive, though this will not change course of RX - he will need 6 weeks IV Abx from date of last (+) BC Repeat BC to document clearing Labs while on Abx: CBC, creat, CBC Monitor temps - still with low grade temps Follow CBC Monitor progress D/W Kimi Pal MD Jan 27, 2017 09:08
[2017-01-27] MEDS: guaiFENesin E.R. 600 MG TAB PO SCH ×2 (09:45→21:00)
[2017-01-27] MEDS: DOCUSATE SODIUM 50 MG/SENNA 8.6 MG TAB PO SCH ×2 (09:46→21:00)
[2017-01-27] MEDS: QUEtiapine FUMARATE 25 MG TAB PO SCH ×2 (09:46→21:00)
[2017-01-27] MEDS: POTASSIUM PHOSPHATE MONOBASIC 500 MG TAB PO SCH ×2 (09:46→21:05)
[2017-01-27] MEDS: ASPIRIN EC 81 MG TABEC PO SCH (09:46)
[2017-01-27] MEDS: CALCIUM CARBONATE 1.25 GM (CA 500 MG) TAB PO SCH ×3 (09:46→17:19)
[2017-01-27 12:04] LABS: APTT (PATIENT) 50.3 SEC (24.3-30.1)
--- NOTE | 2017-01-27 12:37 | HHI.NPPN ---
Subjective History of Present Illness 56-year-old male with past medical history of chronic kidney disease, diabetes mellitus, history of cerebrovascular accident with hemiparesis, ischemic heart disease, hypertension, atrial fibrillation who came to the hospital with generalized weakness and dizziness. I was called to see the patient because of very high BUN and creatinine, metabolic acidosis and hyperkalemia. The patient has known history of chronic kidney disease and his baseline creatinine seems to me in the range of 1.6 to 2.2. Additional Remarks Patient is sleepy , open eyes on command, not following any command, not in distress. Review of Systems General Constitutional: Fatigue Cardiovascular Cardiac: [id number] Objective Data Data 01/27/17 01/28/17 19:00 07:00 Intake Total 125 ml Balance 125 ml IV Total 125 ml Vital Signs Date Time Temp Pulse Resp B/P (MAP) Pulse Ox O2 Delivery O2 Flow Rate FiO2 01/27/17 12:08 100.2 01/27/17 12:07 145 24 94/56 (69) 97 01/27/17 11:02 160 98/53 01/27/17 10:00 177 01/27/17 08:00 99.7 146 27 118/71 (87) 96 01/27/17 08:00 146 01/27/17 06:00 148 01/27/17 04:00 99.5 131 25 119/58 (78) 94 01/27/17 04:00 131 01/27/17 02:00 138 01/27/17 01:28 122 121/57 01/27/17 00:00 133 01/27/17 00:00 99.8 133 42 127/57 (80) 95 01/26/17 22:00 124 01/26/17 20:00 125 01/26/17 20:00 99.6 125 22 123/67 (85) 89 01/26/17 18:00 142 01/26/17 16:39 140 129/62 01/26/17 16:00 99.4 135 27 139/63 (88) 91 01/26/17 16:00 135 01/26/17 14:00 132 -: 01/27/17 0522 01/26/17 0958 Microbiology 01/27/17 Aerobic Blood Culture, Received Pending 01/27/17 Anaerobic Blood Culture, Received Pending Physical Exam General Appearance: No Acute Distress, Comfortable, Anxious Throat Throat Exam: Oral Mucosa [place] & Moist Pulmonary Resp Exam: Breath Sounds Equal, No Distress, Rhonchi, Decreased Bases, Diminished Breath Sounds Cardiology CV Exam: Arrhythmia Gastrointestinal/Abdomen GI Exam: Soft, Non-Tender, Bowel Sounds Present Extremeties Extremities Exam: Trace Edema Neurologic Neuro Exam: Alert, Awake Assessment/Plan Assessment Summary: ABNER/Acute Renal Failure, CKD Stage III Electrolyte Assessment: Hyperkalemia, Hypocalcemia, Metabolic Acidosis Problem List: (1) History of CVA (cerebrovascular accident) ICD Codes: Z86.73 - Personal history of transient ischemic attack (TIA), and cerebral infarction without residual deficits Status: Chronic (2) HTN (hypertension) ICD Codes: I10 - Essential (primary) hypertension Status: Chronic (3) Diabetes ICD Codes: E11.9 - Type 2 diabetes mellitus without complications Status: Acute (4) Metabolic acidemia ICD Codes: E87.2 - Acidosis (5) Hyperkalemia ICD Codes: E87.5 - Hyperkalemia Status: Acute (6) Acute renal failure ICD Codes: N17.9 - Acute kidney failure, unspecified Status: Acute Plan Patient has chronic kidney disease and develop ABNER. Also had metabolic acidosis and Hyperkalemia. Patient has HD 1 session then ARF resolved ATN resolving 1/2 NS at 84 cc/hr Creatinine 2.3 MSSA on Cefazolin no new labs follow BMP Problem Qualifiers (1) HTN (hypertension): Qualified Codes: I10 - Essential (primary) hypertension (2) Diabetes: (3) Acute renal failure: Qualified Codes: N17.9 - Acute kidney failure, unspecified Parth Ruiz MD Jan 27, 2017 12:37
--- NOTE | 2017-01-27 16:58 | HHI.PR ---
Subjective Remarks contract specialist following, with diagnosis of Atrial Fibrillation, recommended to stop Warfarin due to Non compliance, has elevated Troponin but no angina like symptoms, normal left ventricular function by Echo recent non ischemic nuclear stress. Psychiatry specialist following with diagnosis of Delirium due to another medical condition, due to lack of cooperation inability to express a rational choice and inability to verbalize reason of hospitalization and nature of her medical illnesses the patient doesn't have decision making capacity to refuse medications of to leave AMA. 01/21: patient stable during the day, during the afternoon he started with fever for this reason was asked for CXR, blood cultures lactic acid, new CBC, UA and follow results. no nausea, vomit or diarrhea. 01/22: Seen in his bedroom with nurse Miss Cabello, no changes no nausea, vomit or diarrhea, the patient has not the drive to help for his Care I think related to Psychiatric Issues more than organic disease, will be organic if continue with this behavior. at this time somnolent but awakes and engage in conversation. 01/23: patient seen in his bedroom, continue Lethargic, continue Febrile seen with nurse Miss Moreira, asked for ID specialist consult and software product specialist evaluation today, no nausea, vomit or diarrhea 01/24: Seen in his bedroom and discussed with nurse Mr. Tony, the patient has Persistent MSSA Bacteremia, antibiotics changed to Cefazolin and continue BC as per ID specialist, continue refusing his by mouth medicines. 01/25: Patient in his bedroom with nurse, discussed with Mr. Robbins no new issues , continue Atrial Fibrillation with RVR, not Improving with Cardizem. patient non compliant with his medicines he is on Metoprolol but not taking it, but today took it for the nurse. no nausea, vomit or diarrhea 01/27: Seen in his bedroom discussed with nurse patient stable as per ID specialist recommended to continue Cefazolin, Questioned the need for LIGIA due to new culture still positive, he will need six weeks of IV antibiotics , no nausea, vomit or diarrhea. Objective Vital Signs Date Time Temp Pulse Resp B/P (MAP) Pulse Ox O2 Delivery O2 Flow Rate FiO2 01/27/17 16:00 98.6 146 26 109/74 (86) 98 01/27/17 16:00 101 01/27/17 14:30 85 Bi-Pap 50 01/27/17 14:10 96 Bi-Pap 45 01/27/17 14:00 91 Nasal Cannula 4.00 01/27/17 14:00 128 01/27/17 12:08 100.2 01/27/17 12:07 145 24 94/56 (69) 97 01/27/17 12:00 149 01/27/17 11:02 160 98/53 01/27/17 10:00 177 01/27/17 08:45 96 Bi-Pap 01/27/17 08:45 96 Nasal Cannula 3.00 01/27/17 08:00 96 Bi-Pap 45 01/27/17 08:00 99.7 146 27 118/71 (87) 96 01/27/17 08:00 146 01/27/17 06:00 148 01/27/17 04:00 99.5 131 25 119/58 (78) 94 01/27/17 04:00 131 01/27/17 02:00 138 01/27/17 01:28 122 121/57 01/27/17 00:00 133 01/27/17 00:00 99.8 133 42 127/57 (80) 95 01/26/17 22:00 124 01/26/17 20:00 125 01/26/17 20:00 99.6 125 22 123/67 (85) 89 01/26/17 18:00 142 I/O 01/26/17 01/26/17 01/26/17 01/27/17 01/27/17 01/27/17 07:00 15:00 23:00 07:00 15:00 23:00 Intake Total 60 ml 50 ml 50 ml 1336 ml 125 ml Output Total 450 ml 325 ml 1000 ml Balance -390 ml 50 ml -275 ml 336 ml 125 ml Intake Oral 60 ml 0 ml IV Total 50 ml 50 ml 1336 ml 125 ml Output Urine Total 450 ml 325 ml 1000 ml # Bowel Movements 0 0 0 Result Diagram: 01/27/17 0522 01/26/17 0958 Imaging Last Impressions Abdomen X-Ray 01/25/17 0000 Signed Impressions: Service Date/Time: Wednesday, January 25, 2017 14:33 - CONCLUSION: Nonspecific, nonobstructive bowel gas pattern. Scot Sung MD Upper Extremity Ultrasound 01/23/17 0000 Signed Impressions: Service Date/Time: Monday, January 23, 2017 17:45 - CONCLUSION: Thrombus identified within the internal jugular, subclavian, and the basilic veins. Jeyson Luciano MD Chest X-Ray 01/21/17 0000 Signed Impressions: Service Date/Time: Saturday, January 21, 2017 22:42 - CONCLUSION: New hazy opacity in both lungs with concern for ovarian edema and congestive heart failure. Jose Espinal MD Head CT 01/10/17 1257 Signed Impressions: Service Date/Time: Tuesday, January 10, 2017 13:32 - CONCLUSION: No acute disease. Jermaine Malone Jr., MD Renal Ultrasound 01/10/17 0000 Signed Impressions: Service Date/Time: Tuesday, January 10, 2017 17:01 - CONCLUSION: Normal examination. Jermaine Malone Jr., MD Procedures Hemodialysis. Other Results Laboratory Tests Test 01/10/17 16:57 01/10/17 18:00 01/10/17 20:17 01/11/17 03:40 Blood Gas Inspired Oxygen 21 % Nasal Screen MRSA (PCR) MRSA NOT DETECTED Hepatitis A IgM Antibody NEGATIVE Hepatitis B Surface Antigen NEGATIVE Hepatitis B Core IgM Antibody NEGATIVE Hepatitis C Antibody NEGATIVE Troponin I 2.31 NG/ML Test 01/15/17 07:20 01/17/17 05:10 01/21/17 12:50 01/22/17 00:15 Urine Amorphous Sediment OCC Urine Mucus FEW /lpf Hemoglobin A1c 7.0 % Free Thyroxine 1.77 NG/DL Thyroid Stimulating Hormone 3rd Gen 1.190 uIU/ML Protein Corrected Calcium 7.2 MG/DL Lactic Acid Level 1.1 mmol/L Test 01/22/17 22:39 01/23/17 03:25 01/23/17 05:50 01/23/17 07:52 Basophils % 1 % Metamyelocytes 1 % Ionized Calcium 5.1 mg/dL Toxic Granulation 1+ Dohle Bodies PRESENT Blood Urea Nitrogen 33 MG/DL Creatinine 2.20 MG/DL Random Glucose 176 MG/DL Total Protein 6.8 GM/DL Albumin 2.0 GM/DL Calcium Level 7.6 MG/DL Phosphorus Level 2.0 MG/DL Alkaline Phosphatase 67 U/L Aspartate Amino Transf (AST/SGOT) 55 U/L Alanine Aminotransferase (ALT/SGPT) 28 U/L Total Bilirubin 1.1 MG/DL Sodium Level 136 MEQ/L Potassium Level 3.8 MEQ/L Chloride Level 101 MEQ/L Carbon Dioxide Level 26.9 MEQ/L Blood Gas Puncture Site LT RADIAL Blood Gas Patient Temperature 98.6 Blood Gas HCO3 26 mmol/L Blood Gas Base Excess 2.3 mmol/L Blood Gas Oxygen Saturation 91 % Arterial Blood pH 7.49 Arterial Blood Partial Pressure CO2 34 mmHg Arterial Blood Partial Pressure O2 67 mmHg Arterial Blood Oxygen Content 13.0 Vol % Arterial Blood Carboxyhemoglobin 1.0 % Arterial Blood Methemoglobin 1.3 % Blood Gas Hemoglobin 10.1 G/DL Oxygen Delivery Device NASAL CANNULA Blood Gas Liter Flow 4 L/M Nucleated Red Blood Cells 2 /100 WBC Plasma Cells 1 % Red Cell Morphology Comment NORMAL Hematology Comments Test 01/23/17 14:26 01/23/17 22:40 01/25/17 07:52 01/26/17 09:58 Urine Color YELLOW Urine Turbidity HAZY Urine pH 6.0 Urine Specific [place] 1.015 Urine Protein 100 mg/dL Urine Glucose (UA) NEG mg/dL Urine Ketones 10 mg/dL Urine Occult Blood MOD Urine Nitrite NEG Urine Bilirubin NEG Urine Urobilinogen LESS THAN 2.0 MG/DL Urine Leukocyte Esterase LARGE Urine RBC LESS THAN 1 /hpf Urine WBC 158 /hpf Urine WBC Clumps FEW Urine Squamous Epithelial Cells 1 /hpf Urine Bacteria FEW /hpf Microscopic Urinalysis Comment CULTURE INDICATED Differential Total Cells Counted 100 Neutrophils % (Manual) 89 % Band Neutrophils % 3 % Lymphocytes % 4 % Monocytes % 3 % Eosinophils % 1 % Neutrophils # (Manual) 20.6 TH/MM3 Toxic Vacuolation PRESENT Platelet Estimate NORMAL Platelet Morphology Comment NORMAL Prothrombin Time 17.1 SEC Prothromb Time International Ratio 1.5 RATIO Neutrophils (%) (Auto) 86.4 % Lymphocytes (%) (Auto) 6.8 % Monocytes (%) (Auto) 5.7 % Eosinophils (%) (Auto) 0.9 % Basophils (%) (Auto) 0.2 % Neutrophils # (Auto) 14.0 TH/MM3 Lymphocytes # (Auto) 1.1 TH/MM3 Monocytes # (Auto) 0.9 TH/MM3 Eosinophils # (Auto) 0.1 TH/MM3 Basophils # (Auto) 0.0 TH/MM3 CBC Comment DIFF FINAL Differential Comment Blood Urea Nitrogen 28 MG/DL Creatinine 2.39 MG/DL Random Glucose 96 MG/DL Calcium Level 7.5 MG/DL Magnesium Level 1.7 MG/DL Sodium Level 139 MEQ/L Potassium Level 4.0 MEQ/L Chloride Level 107 MEQ/L Carbon Dioxide Level 25.2 MEQ/L Anion Gap 7 MEQ/L Estimat Glomerular Filtration Rate 34 ML/MIN Test 01/27/17 05:22 01/27/17 11:16 White Blood Count 16.6 TH/MM3 Red Blood Count 2.96 MIL/MM3 Hemoglobin 8.5 GM/DL Hematocrit 25.4 % Mean Corpuscular Volume 85.9 FL Mean Corpuscular Hemoglobin 28.6 PG Mean Corpuscular Hemoglobin Concent 33.3 % Red Cell Distribution Width 14.7 % Platelet Count 292 TH/MM3 Mean Platelet Volume 8.9 FL Activated Partial Thromboplast Time 50.3 SEC Objective Remarks GENERAL: Alert, no acute distress. CV: Irregular rate with tachycardia and irregular rhythm. No rubs murmurs or gallops. Resp: Clear to all station bilaterally Abdomen: Soft but distended. Negative tenderness palpation. No peritoneal signs. Extremity negative for any edema. Neuro: Alert non oriented. Medications and IVs Current Medications Medications (Trade) Dose Ordered Sig/Mansi Route Start Time Stop Time Status Last Admin (Tylenol) 650 mg Q6H PRN PO 01/10/17 17:00 01/26/17 08:20 (Proair Hfa Inh) 2 puff Q6H PRN INH 01/10/17 17:00 (Lipitor) 80 mg HS PO 01/10/17 21:00 01/25/17 19:39 (Nitrostat Sl) 0.4 mg Q3H PRN SL 01/10/17 17:00 (Ecotrin Ec) 81 mg DAILY PO 01/10/17 17:00 01/27/17 09:46 (NS Flush) 2 ml BID IV FLUSH 01/10/17 21:00 01/27/17 09:04 Miscellaneous Information 1 Q361D XX 01/10/17 17:15 (Chlorhexidine 2% Cloth) Taper DAILY@04 TOP 01/11/17 04:00 01/07/18 03:59 01/27/17 03:58 (Chlorhexidine 2% Cloth) 3 pack UNSCH PRN TOP 01/10/17 17:15 (Afia-Colace) 1 tab BID PO 01/10/17 21:00 01/27/17 09:46 (Milk Of Magnesia Liq) 30 ml Q12H PRN PO 01/10/17 17:15 (Senokot) 17.2 mg Q12H PRN PO 01/10/17 17:15 (Dulcolax Supp) 10 mg DAILY PRN RECTAL 01/10/17 17:15 (Lactulose Liq) 30 ml DAILY PRN PO 01/10/17 17:15 Sodium Chloride 1,000 ml @ 0 mls/hr Q0M PRN OTHER 01/10/17 17:47 01/10/17 22:05 Sodium Chloride 1,000 ml @ 200 mls/hr Q5H PRN IV 01/10/17 17:47 Sodium Chloride 1,000 ml @ 0 mls/hr Q0M PRN OTHER 01/10/17 17:47 (Mannitol Inj) 12.5 gm UNSCH PRN IV 01/10/17 18:00 Albumin Human 100 ml @ 60 mls/hr UNSCH PRN IV 01/10/17 18:00 (NS Flush) 5 ml UNSCH PRN IV FLUSH 01/10/17 18:00 (Heparin Inj) UNSCH PRN .XX 01/10/17 18:00 (Gentamicin (Dialysis) Inj) 20 mg UNSCH PRN OTHER 01/10/17 18:00 01/10/17 22:03 (Zofran Inj) 4 mg UNSCH PRN IV PUSH 01/10/17 18:00 01/18/17 08:51 (Tylenol) 650 mg UNSCH PRN PO 01/10/17 18:00 01/24/17 01:28 (Benadryl) 25 mg UNSCH PRN PO 01/10/17 18:00 (Nitrostat Sl) 0.4 mg UNSCH PRN SL 01/10/17 18:00 (Catapres) 0.1 mg UNSCH PRN PO 01/10/17 18:00 01/15/17 02:07 (Gelfoam 12 Mm/7 Mm Top) 1 foam UNSCH PRN TOP 01/10/17 18:00 Dexmedetomidine HCl 200 mcg/ Sodium Chloride 52 ml @ 5.46 mls/hr TITRATE PRN IV 01/11/17 00:00 01/12/17 14:53 (Haldol Inj) 5 mg Q4H PRN IV 01/12/17 17:00 01/20/17 10:02 (Reglan Inj) 5 mg Q8H IV PUSH 01/15/17 10:00 01/27/17 09:46 (Apresoline Inj) 10 mg Q4H PRN IV PUSH 01/15/17 10:00 Potassium Chloride 100 ml @ 50 mls/hr Q2H IV 01/15/17 10:00 Future Hold 01/16/17 06:11 (Catapres-Tts 0.3 Mg Patch.7d) 1 patch Q7D T-DERMAL 01/16/17 10:00 01/16/17 14:14 Miscellaneous Information 1 Q7D T-DERMAL 01/16/17 10:00 01/16/17 10:00 (Mucinex Er) 600 mg BID PO 01/16/17 21:00 01/27/17 09:45 (Oscal) 500 mg TID PO 01/17/17 13:00 01/27/17 11:21 (K-Phos) 500 mg Q12HR PO 01/17/17 14:00 01/27/17 09:46 (SEROquel) 25 mg BID PO 01/17/17 21:00 01/27/17 09:46 (Lopressor) 50 mg Q8HR PO 01/19/17 14:00 01/27/17 11:21 (Trandate Inj) 10 mg Q4H PRN IV PUSH 01/20/17 08:30 01/20/17 17:27 (Levemir Inj) 5 units Q12HR SQ 01/23/17 09:00 01/26/17 21:00 Diltiazem HCl 125 mg/Sodium Chloride 125 ml @ 5 mls/hr TITRATE PRN IV 01/23/17 12:00 01/27/17 11:02 Sodium Chloride 1,000 ml @ 84 mls/hr [id number] IV 01/23/17 12:00 01/27/17 09:04 (Dilaudid Pf Inj) 0.5 mg Q4HR PRN IV PUSH 01/23/17 14:45 01/26/17 02:17 (Dilaudid Pf Inj) 0.75 mg Q4HR PRN IV PUSH 01/23/17 14:45 01/26/17 19:16 Heparin Sodium/ Dextrose 250 ml @ 18 mls/hr TITRATE PRN IV 01/24/17 12:00 01/27/17 01:32 (D50w (Vial) Inj) 25 ml UNSCH PRN IV PUSH 01/24/17 16:00 (NovoLIN R SUPPLEMENTAL SCALE) 1 Q6HR SQ 01/24/17 18:00 01/27/17 11:31 Cefazolin Sodium/ Dextrose 50 ml @ 150 mls/hr Q8H IV 01/24/17 20:00 01/27/17 11:21 A/P Assessment and Plan 1. Acute Metabolic Encephalopathy/Agitated Delirium, History of Previous CVA with left hemiparesis, awake and alert today. 2. Severe combined Metabolic and respiratory acidosis resolved Past Tobacco dependence continue Bronchodilator, Mucolytic and incentive spirometry 3. Atrial Flutter/Fibrillation with RVR/Elevated Troponin, History of CAD and Hypertension, Cardiology following, recommended Metoprolol Warfarin, equivocal Troponin elevation, recommended by Cardiology to stop Warfarin due to non compliance. but developed left Upper extremity DVT and was recommended to start Heparin IV. 4. DVT of the left arm on heparin 5. DM II/Dyslipidemia continue sliding scale. blood sugar stable. 6. Fever improved, his Chest X ray has some infiltrates, started on Cefepime and Azithromycin today positive blood cultures positive for MSSA and as per ID specialist switched to Cefazolin. until blood cultures negative. will need to continue Cefazolin for six weeks IV, question the need for LIGIA due to still positive. 7. Elevated Troponin but no angina like symptoms, normal left ventricular function by Echo recent non ischemic nuclear stress. 8. Delirium due to another medical condition, due to lack of cooperation inability to express a rational choice and inability to verbalize reason of hospitalization and nature of her medical illnesses the patient doesn't have decision making capacity to refuse medications of to leave AMA. 9. Acute kidney Injury on chronic kidney disease, slowly improving, Nephrology specialist following. had one single HD and improved. Mild worsening Creatinine level. Discussed with nurse. PROPH: - Bilateral lower extremity SCDs. Heparin IV DCd, protonix 40 mg IV q12 Discharge Planning Not yet ready for discharge continue Critical care management by now. Dane Gleason MD Jan 27, 2017 16:58
[2017-01-27] MEDS: HYDROmorphone HCL PF 2 MG/ML VIAL IV PUSH PRN (17:43)
[2017-01-27] MEDS: ATORVASTATIN 80 MG TAB PO SCH (21:04)
[2017-01-27] MEDS: diphenhydrAMINE HCL 25 MG CAP PO PRN (21:27)
[2017-01-27] MEDS: HALOPERIDOL LACTATE 5 MG/ML AMP IV PRN (21:27)
[2017-01-27 22:06] LABS: APTT (PATIENT) 74.1 SEC (24.3-30.1)
[2017-01-28] VITALS (13 sets, daily range): BP systolic 101–138; BP diastolic 63–73; PULSE 73–99; RESP 18–27; TEMP 98.8–99.2; O2SAT 94–100
[2017-01-28] MEDS: METOCLOPRAMIDE HCL 10 MG/2 ML VIAL IV PUSH SCH ×3 (03:13→17:41)
[2017-01-28] MEDS: DILTIAZEM 125 MG/NS 100 ML IV PRN ×6 (03:15→23:09)
[2017-01-28] MEDS: CHLORHEXIDINE GLUCONATE 2 % 1 PACK (2 CLOTHS) TOP SCH (04:00)
[2017-01-28 05:45] LABS: HEMATOCRIT 22.1 % (39.0-51.0); MEAN CELL VOLUME 86.3 FL (80.0-100.0); MEAN CORPUSCULAR HGB CONC 33.6 % (32.0-36.0); PLATELET COUNT 267 TH/MM3 (150-450); RED BLOOD COUNT 2.56 MIL/MM3 (4.50-5.90); RED CELL DISTRIBUTION WIDTH 14.8 % (11.6-17.2); REVIEW FLAG FINAL; WHITE BLOOD COUNT 16.1 TH/MM3 (4.0-11.0)
[2017-01-28] MEDS: INSULIN NovoLIN REGULAR SUPPLEMENTAL SCALE SQ SCH ×4 (06:00→17:39)
[2017-01-28 06:13] LABS: BICARBONATE 22.6 MEQ/L (21.0-32.0); POTASSIUM 3.9 MEQ/L (3.5-5.1)
[2017-01-28 06:25] LABS: APTT (PATIENT) 66.7 SEC (24.3-30.1)
[2017-01-28] MEDS: ceFAZolin 2 GM PREMIX 50 ML IV SCH ×3 (06:26→23:10)
[2017-01-28] MEDS: METOPROLOL TARTRATE 50 MG TAB PO SCH ×3 (06:26→23:10)
[2017-01-28] MEDS: HYDROmorphone HCL PF 2 MG/ML VIAL IV PUSH PRN ×3 (06:43→19:59)
[2017-01-28] MEDS: SODIUM CHLOR 0.45% 1000 ML INJ 1,000 ML IV SCH ×2 (06:45→23:09)
[2017-01-28 06:50] LABS: CALCIUM-PROTEIN CORRECTED 7.3 MG/DL (8.5-10.1)
[2017-01-28] MEDS: INSULIN DETEMIR 100 UNITS/ML VIAL SQ SCH ×2 (09:56→21:00)
[2017-01-28] MEDS: ASPIRIN EC 81 MG TABEC PO SCH (09:57)
[2017-01-28] MEDS: guaiFENesin E.R. 600 MG TAB PO SCH ×2 (09:57→21:00)
[2017-01-28] MEDS: CALCIUM CARBONATE 1.25 GM (CA 500 MG) TAB PO SCH ×3 (09:57→17:42)
[2017-01-28] MEDS: DOCUSATE SODIUM 50 MG/SENNA 8.6 MG TAB PO SCH ×2 (09:58→23:10)
[2017-01-28] MEDS: QUEtiapine FUMARATE 25 MG TAB PO SCH ×2 (09:58→23:10)
[2017-01-28] MEDS: POTASSIUM PHOSPHATE MONOBASIC 500 MG TAB PO SCH ×2 (09:58→23:10)
--- NOTE | 2017-01-28 10:10 | HHI.NPPN ---
Subjective History of Present Illness 56-year-old male with past medical history of chronic kidney disease, diabetes mellitus, history of cerebrovascular accident with hemiparesis, ischemic heart disease, hypertension, atrial fibrillation who came to the hospital with generalized weakness and dizziness. I was called to see the patient because of very high BUN and creatinine, metabolic acidosis and hyperkalemia. The patient has known history of chronic kidney disease and his baseline creatinine seems to me in the range of 1.6 to 2.2. Additional Remarks Patient is sleepy , open eyes on command, not following any command, not in distress. Review of Systems General Constitutional: Fatigue Cardiovascular Cardiac: RODRÍGUEZ Objective Data Data Vital Signs Date Time Temp Pulse Resp B/P (MAP) Pulse Ox O2 Delivery O2 Flow Rate FiO2 01/28/17 06:00 81 01/28/17 04:00 98.9 81 27 109/66 (80) 97 01/28/17 04:00 81 01/28/17 03:15 80 109/66 01/28/17 02:00 81 01/28/17 00:01 99.2 99 25 101/64 (76) 98 01/28/17 00:00 99 01/27/17 22:00 125 01/27/17 20:00 123 01/27/17 20:00 99.0 123 32 111/66 (81) 98 01/27/17 18:00 125 01/27/17 17:43 150 110/71 01/27/17 16:00 98.6 146 26 109/74 (86) 98 01/27/17 16:00 101 01/27/17 14:30 Nasal Cannula 01/27/17 14:10 Nasal Cannula 4.00 01/27/17 14:00 Nasal Cannula 4.00 01/27/17 14:00 128 01/27/17 12:08 100.2 01/27/17 12:07 145 24 94/56 (69) 97 01/27/17 12:00 149 01/27/17 11:02 160 98/53 -: 01/28/17 0500 01/28/17 0500 Microbiology 01/27/17 Aerobic Blood Culture - Preliminary, Resulted Gram Positive Cocci 01/27/17 Anaerobic Blood Culture, Resulted Pending Physical Exam General Appearance: No Acute Distress, Comfortable, Anxious Throat Throat Exam: Oral Mucosa Terral & Moist Pulmonary Resp Exam: Breath Sounds Equal, No Distress, Rhonchi, Decreased Bases, Diminished Breath Sounds Cardiology CV Exam: Arrhythmia Gastrointestinal/Abdomen GI Exam: Soft, Non-Tender, Bowel Sounds Present Extremeties Extremities Exam: Trace Edema Neurologic Neuro Exam: Alert, Awake Assessment/Plan Assessment Summary: ABNER/Acute Renal Failure, CKD Stage III Electrolyte Assessment: Hyperkalemia, Hypocalcemia, Metabolic Acidosis Problem List: (1) History of CVA (cerebrovascular accident) ICD Codes: Z86.73 - Personal history of transient ischemic attack (TIA), and cerebral infarction without residual deficits Status: Chronic (2) HTN (hypertension) ICD Codes: I10 - Essential (primary) hypertension Status: Chronic (3) Diabetes ICD Codes: E11.9 - Type 2 diabetes mellitus without complications Status: Acute (4) Metabolic acidemia ICD Codes: E87.2 - Acidosis (5) Hyperkalemia ICD Codes: E87.5 - Hyperkalemia Status: Acute (6) Acute renal failure ICD Codes: N17.9 - Acute kidney failure, unspecified Status: Acute Plan Patient has chronic kidney disease and develop ABNER. Also had metabolic acidosis and Hyperkalemia. Patient has HD 1 session then ARF resolved ATN resolving 1/2 NS at 84 cc/hr Creatinine 2.4 MSSA on Cefazolin replace Calcium follow BMP Problem Qualifiers (1) HTN (hypertension): Qualified Codes: I10 - Essential (primary) hypertension (2) Diabetes: (3) Acute renal failure: Qualified Codes: N17.9 - Acute kidney failure, unspecified Parth Ruiz MD Jan 28, 2017 10:09
[2017-01-28] MEDS ORDERED: CALCIUM GLUCONATE INJ 1 GM in DEXTROSE 5% IN WATER 100ML INJ 100 ML IV ONE ×2 (11:30)
[2017-01-28] MEDS: SODIUM CHLORIDE 0.9% FLUSH 10 ML FLUSH IV FLUSH SCH ×2 (11:36→23:11)
--- NOTE | 2017-01-28 13:36 | HHI.IDPN ---
Subjective Subjective Remarks Is a 56-year-old male with past medical history significant for chronic kidney disease baseline creatinine 1.8-2, type 2 diabetes, history of CVA with residual left patient is a 56-year-old male, admitted to the hospital complaining of generalized weakness and dizziness for about 1 week. He apparently lives in a assisted and walks with a cane, and has left-sided weakness. There is mention that he had fallen a couple times due to the weakness. There is also mention that he was not having enough by mouth intake, as well as some diarrhea. He denies any abdominal pain, any nausea or vomiting. On initial presentation patient was found to be in atrial flutter with RVR. He also has significant acidosis, and has an elevated potassium and creatinine. Patient was seen by cardiology, and his echo showed normal EF. Patient also was seen by renal, and underwent emergency hemodialysis. His hemodynamics stabilized, and the hemodialysis has been stopped. He has good urine output. Patient has been refusing a lot of his treatment. His had some problem with nausea and vomiting. He has had on and off fevers which are low- grade, however in the last probably 4 days, his fevers have been more persistent. He is complaining of pain on the right side of his trunk. There is also mention that his left upper extremity is swollen. Patient has no central line. He has a condom catheter. Chest x-ray has shown a similar opacities bilaterally. Patient was started on antibiotics, and currently on AZT mycin, cefepime, and vancomycin. Infectious disease consultation has been requested to evaluate the patient. Notes reviewed BC with MSSA, BC still (+) C/O pain in his back/flank bilaterally Has thrombus in LUE as well as in his LIJ, and [facility] [place] noted, no vegetation mentioned Still with low grade temps BP ok Antibiotics Ancef Lines PIV Past Medical History Chronic kidney disease Type 2 diabetes Hypertension Dyslipidemia Previous stroke, with residual L weakness Atrial fibrillation/flutter CAD History of PUD Past Surgical History Throat and arm surgery Allergies: Coded Allergies: No Known Allergies (Unverified , 01/07/17) Objective . Vital Signs Date Time Temp Pulse Resp B/P (MAP) Pulse Ox O2 Delivery O2 Flow Rate FiO2 01/28/17 12:00 76 01/28/17 12:00 98.8 76 26 138/63 (88) 94 01/28/17 11:54 75 01/28/17 10:00 85 01/28/17 08:00 99.1 85 20 104/70 (81) 97 01/28/17 08:00 85 01/28/17 06:00 81 01/28/17 04:00 98.9 81 27 109/66 (80) 97 01/28/17 04:00 81 01/28/17 03:15 80 109/66 01/28/17 02:00 81 01/28/17 00:01 99.2 99 25 101/64 (76) 98 01/28/17 00:00 99 01/27/17 22:00 125 01/27/17 20:00 123 01/27/17 20:00 99.0 123 32 111/66 (81) 98 01/27/17 18:00 125 01/27/17 17:43 150 110/71 01/27/17 16:00 98.6 146 26 109/74 (86) 98 01/27/17 16:00 101 01/27/17 14:30 Nasal Cannula 01/27/17 14:10 Nasal Cannula 4.00 01/27/17 14:00 Nasal Cannula 4.00 01/27/17 14:00 128 01/28/17 01/28/17 01/29/17 15:00 23:00 07:00 Intake Total 365 ml Balance 365 ml IV Total 365 ml . Laboratory Tests Test 01/27/17 05:22 01/28/17 05:00 White Blood Count 16.6 TH/MM3 16.1 TH/MM3 Red Blood Count 2.96 MIL/MM3 2.56 MIL/MM3 Hemoglobin 8.5 GM/DL 7.4 GM/DL Hematocrit 25.4 % 22.1 % Mean Corpuscular Volume 85.9 FL 86.3 FL Mean Corpuscular Hemoglobin 28.6 PG 29.0 PG Mean Corpuscular Hemoglobin Concent 33.3 % 33.6 % Red Cell Distribution Width 14.7 % 14.8 % Platelet Count 292 TH/MM3 267 TH/MM3 Mean Platelet Volume 8.9 FL 9.4 FL Laboratory Tests Test 01/28/17 05:00 Blood Urea Nitrogen 27 MG/DL Creatinine 2.40 MG/DL Random Glucose 196 MG/DL Total Protein 6.8 GM/DL Calcium Level 7.1 MG/DL Sodium Level 136 MEQ/L Potassium Level 3.9 MEQ/L Chloride Level 106 MEQ/L Carbon Dioxide Level 22.6 MEQ/L Anion Gap 7 MEQ/L Estimat Glomerular Filtration Rate 34 ML/MIN Protein Corrected Calcium 7.3 MG/DL Microbiology Date/Time Source Procedure Growth Status 01/27/17 11:16 Blood Peripheral Aerobic Blood Culture - Preliminary Gram Positive Cocci Resulted 01/27/17 11:16 Blood Peripheral Anaerobic Blood Culture - Preliminary NO GROWTH IN 1 DAY Resulted Imaging Last Impressions Abdomen X-Ray 01/25/17 0000 Signed Impressions: Service Date/Time: Wednesday, January 25, 2017 14:33 - CONCLUSION: Nonspecific, nonobstructive bowel gas pattern. Scot Sung MD Upper Extremity Ultrasound 01/23/17 0000 Signed Impressions: Service Date/Time: Monday, January 23, 2017 17:45 - CONCLUSION: Thrombus identified within the internal jugular, subclavian, and the basilic veins. Jeyson Luciano MD Chest X-Ray 01/21/17 0000 Signed Impressions: Service Date/Time: Saturday, January 21, 2017 22:42 - CONCLUSION: New hazy opacity in both lungs with concern for ovarian edema and congestive heart failure. Jose Espinal MD Head CT 01/10/17 1257 Signed Impressions: Service Date/Time: Tuesday, January 10, 2017 13:32 - CONCLUSION: No acute disease. Jermaine Malone Jr., MD Renal Ultrasound 01/10/17 0000 Signed Impressions: Service Date/Time: Tuesday, January 10, 2017 17:01 - CONCLUSION: Normal examination. Jermaine Malone Jr., MD Physical Exam GENERAL: Awake and alert, not in respiratory distress. C/O paian in back looks uncomfortable SKIN: Warm and dry. No generalized rash, no ecchymoses and no evidence of embolic lesions. HEAD: Atraumatic. Normocephalic. No temporal wasting, or tenderness. EYES: Allyn conjunctiva. No petechia or hemorrhage. Pupils equal, round and reactive to light. Extraocular movements full and intact. No scleral icterus. No injection or drainage. EARS, NOSE AND THROAT: Nose without bleeding or purulent nasal discharge. No sinus tenderness. Moist mucosa NECK: Trachea midline. Supple and not tender, no meningeal signs. Previous vascath site looks ok, dry CARDIOVASCULAR: Tachycardic, irregular rate and rhythm. No murmurs, rubs or gallops heard RESPIRATORY: Clear to auscultation. Breath sounds equal bilaterally. No rales , wheezing or rhonchi, decreased at the bases ABDOMEN: Soft, mildly distended, diffuse tenderness mild, no guarding or rebound. Bowel sounds present and normoactive. No organomegaly. EXTREMITIES: mild BLE edema, no cyanosis. LUE is swollen : Condom cath in place NEUROLOGICAL: Awake and alert. L side plegic PSYCHIATRIC: calm, cooperative this morning LINE: No evidence of infection Assessment & Plan Remarks IMPRESSION Sepsis with MSSA - had vascath placed 01/10, removed 01/15 - has DVT LUE including LIJ and LSC, and previously had vascath and suspicious for infected thrombophlebitis - has basilar opacities, ?fluid; not coughing or congested, less likely PNA - BC still (+) - has flank pain, ?another focus/seeding Renal failure, creatinine has improved and has good UO Previous CVA with left sided weakness Atrial fib with RVR Leukocytosis, persistent PLAN Continue cefazolin Add Rifampin Cardio for LIGIA CT A/P to evaluate back pain and abdominal tenderness since he still has low grade temps and persistently (+) BC Repeat BC to document clearing He will need 6 weeks IV Abx from date of last (+) BC Labs while on Abx: CBC, creat, CBC Follow CBC Monitor progress Kimi Quintana MD Jan 28, 2017 13:36
[2017-01-28] MEDS: RIFAMPIN 150 MG CAP PO SCH (14:00)
[2017-01-28 15:46] LABS: APTT (PATIENT) 61.5 SEC (24.3-30.1)
--- NOTE | 2017-01-28 17:04 | HHI.PR ---
Subjective Remarks net application support specialist following, with diagnosis of Atrial Fibrillation, recommended to stop Warfarin due to Non compliance, has elevated Troponin but no angina like symptoms, normal left ventricular function by Echo recent non ischemic nuclear stress. Psychiatry specialist following with diagnosis of Delirium due to another medical condition, due to lack of cooperation inability to express a rational choice and inability to verbalize reason of hospitalization and nature of her medical illnesses the patient doesn't have decision making capacity to refuse medications of to leave AMA. 01/21: patient stable during the day, during the afternoon he started with fever for this reason was asked for CXR, blood cultures lactic acid, new CBC, UA and follow results. no nausea, vomit or diarrhea. 01/22: Seen in his bedroom with nurse Miss Cabello, no changes no nausea, vomit or diarrhea, the patient has not the drive to help for his Care I think related to Psychiatric Issues more than organic disease, will be organic if continue with this behavior. at this time somnolent but awakes and engage in conversation. 01/23: patient seen in his bedroom, continue Lethargic, continue Febrile seen with nurse Miss Moreira, asked for ID specialist consult and network management specialist evaluation today, no nausea, vomit or diarrhea 01/24: Seen in his bedroom and discussed with nurse Mr. Tony, the patient has Persistent MSSA Bacteremia, antibiotics changed to Cefazolin and continue BC as per ID specialist, continue refusing his by mouth medicines. 01/25: Patient in his bedroom with nurse, discussed with Mr. Robbins no new issues , continue Atrial Fibrillation with RVR, not Improving with Cardizem. patient non compliant with his medicines he is on Metoprolol but not taking it, but today took it for the nurse. no nausea, vomit or diarrhea 01/27: Seen in his bedroom discussed with nurse patient stable as per ID specialist recommended to continue Cefazolin, Questioned the need for LIGIA due to new culture still positive, he will need six weeks of IV antibiotics , no nausea, vomit or diarrhea. 01/28: Seen in his bedroom discussed with nurse Miss Busby, has CT abdomen and pelvis ordered by ID specialist and Blood cultures positive. Objective Vital Signs Date Time Temp Pulse Resp B/P (MAP) Pulse Ox O2 Delivery O2 Flow Rate FiO2 01/28/17 14:00 78 01/28/17 12:00 76 01/28/17 12:00 98.8 76 26 138/63 (88) 94 01/28/17 11:54 75 01/28/17 10:00 85 01/28/17 08:00 99.1 85 20 104/70 (81) 97 01/28/17 08:00 85 01/28/17 06:00 81 01/28/17 04:00 98.9 81 27 109/66 (80) 97 01/28/17 04:00 81 01/28/17 03:15 80 109/66 01/28/17 02:00 81 01/28/17 00:01 99.2 99 25 101/64 (76) 98 01/28/17 00:00 99 01/27/17 22:00 125 01/27/17 20:00 123 01/27/17 20:00 99.0 123 32 111/66 (81) 98 01/27/17 18:00 125 01/27/17 17:43 150 110/71 I/O 01/27/17 01/27/17 01/27/17 01/28/17 01/28/17 01/28/17 07:00 15:00 23:00 07:00 15:00 23:00 Intake Total 1336 ml 175 ml 610 ml 1261 ml 365 ml Output Total 1000 ml 600 ml 500 ml Balance 336 ml 175 ml 10 ml 761 ml 365 ml Intake Oral 0 ml 240 ml IV Total 1336 ml 175 ml 370 ml 1261 ml 365 ml Output Urine Total 1000 ml 600 ml 500 ml # Bowel Movements 0 2 1 Result Diagram: 01/28/17 0500 01/28/17 0500 Imaging Last Impressions Abdomen X-Ray 01/25/17 0000 Signed Impressions: Service Date/Time: Wednesday, January 25, 2017 14:33 - CONCLUSION: Nonspecific, nonobstructive bowel gas pattern. Scot Sung MD Upper Extremity Ultrasound 01/23/17 0000 Signed Impressions: Service Date/Time: Monday, January 23, 2017 17:45 - CONCLUSION: Thrombus identified within the internal jugular, subclavian, and the basilic veins. Jeyson Luciano MD Chest X-Ray 01/21/17 0000 Signed Impressions: Service Date/Time: Saturday, January 21, 2017 22:42 - CONCLUSION: New hazy opacity in both lungs with concern for ovarian edema and congestive heart failure. Jose Espinal MD Head CT 01/10/17 1257 Signed Impressions: Service Date/Time: Tuesday, January 10, 2017 13:32 - CONCLUSION: No acute disease. Jermaine Malone Jr., MD Renal Ultrasound 01/10/17 0000 Signed Impressions: Service Date/Time: Tuesday, January 10, 2017 17:01 - CONCLUSION: Normal examination. Jermaine Malone Jr., MD Procedures Hemodialysis. Other Results Laboratory Tests Test 01/10/17 16:57 01/10/17 18:00 01/10/17 20:17 01/11/17 03:40 Blood Gas Inspired Oxygen 21 % Nasal Screen MRSA (PCR) MRSA NOT DETECTED Hepatitis A IgM Antibody NEGATIVE Hepatitis B Surface Antigen NEGATIVE Hepatitis B Core IgM Antibody NEGATIVE Hepatitis C Antibody NEGATIVE Troponin I 2.31 NG/ML Test 01/15/17 07:20 01/17/17 05:10 01/22/17 00:15 01/22/17 22:39 Urine Amorphous Sediment OCC Urine Mucus FEW /lpf Hemoglobin A1c 7.0 % Free Thyroxine 1.77 NG/DL Thyroid Stimulating Hormone 3rd Gen 1.190 uIU/ML Lactic Acid Level 1.1 mmol/L Basophils % 1 % Metamyelocytes 1 % Ionized Calcium 5.1 mg/dL Test 01/23/17 03:25 01/23/17 05:50 01/23/17 07:52 01/23/17 14:26 Toxic Granulation 1+ Dohle Bodies PRESENT Blood Urea Nitrogen 33 MG/DL Creatinine 2.20 MG/DL Random Glucose 176 MG/DL Total Protein 6.8 GM/DL Albumin 2.0 GM/DL Calcium Level 7.6 MG/DL Phosphorus Level 2.0 MG/DL Alkaline Phosphatase 67 U/L Aspartate Amino Transf (AST/SGOT) 55 U/L Alanine Aminotransferase (ALT/SGPT) 28 U/L Total Bilirubin 1.1 MG/DL Sodium Level 136 MEQ/L Potassium Level 3.8 MEQ/L Chloride Level 101 MEQ/L Carbon Dioxide Level 26.9 MEQ/L Blood Gas Puncture Site LT RADIAL Blood Gas Patient Temperature 98.6 Blood Gas HCO3 26 mmol/L Blood Gas Base Excess 2.3 mmol/L Blood Gas Oxygen Saturation 91 % Arterial Blood pH 7.49 Arterial Blood Partial Pressure CO2 34 mmHg Arterial Blood Partial Pressure O2 67 mmHg Arterial Blood Oxygen Content 13.0 Vol % Arterial Blood Carboxyhemoglobin 1.0 % Arterial Blood Methemoglobin 1.3 % Blood Gas Hemoglobin 10.1 G/DL Oxygen Delivery Device NASAL CANNULA Blood Gas Liter Flow 4 L/M Nucleated Red Blood Cells 2 /100 WBC Plasma Cells 1 % Red Cell Morphology Comment NORMAL Hematology Comments Urine Color YELLOW Urine Turbidity HAZY Urine pH 6.0 Urine Specific Willards 1.015 Urine Protein 100 mg/dL Urine Glucose (UA) NEG mg/dL Urine Ketones 10 mg/dL Urine Occult Blood MOD Urine Nitrite NEG Urine Bilirubin NEG Urine Urobilinogen LESS THAN 2.0 MG/DL Urine Leukocyte Esterase LARGE Urine RBC LESS THAN 1 /hpf Urine WBC 158 /hpf Urine WBC Clumps FEW Urine Squamous Epithelial Cells 1 /hpf Urine Bacteria FEW /hpf Microscopic Urinalysis Comment CULTURE INDICATED Test 01/23/17 22:40 01/25/17 07:52 01/26/17 09:58 01/28/17 05:00 Differential Total Cells Counted 100 Neutrophils % (Manual) 89 % Band Neutrophils % 3 % Lymphocytes % 4 % Monocytes % 3 % Eosinophils % 1 % Neutrophils # (Manual) 20.6 TH/MM3 Toxic Vacuolation PRESENT Platelet Estimate NORMAL Platelet Morphology Comment NORMAL Prothrombin Time 17.1 SEC Prothromb Time International Ratio 1.5 RATIO Neutrophils (%) (Auto) 86.4 % Lymphocytes (%) (Auto) 6.8 % Monocytes (%) (Auto) 5.7 % Eosinophils (%) (Auto) 0.9 % Basophils (%) (Auto) 0.2 % Neutrophils # (Auto) 14.0 TH/MM3 Lymphocytes # (Auto) 1.1 TH/MM3 Monocytes # (Auto) 0.9 TH/MM3 Eosinophils # (Auto) 0.1 TH/MM3 Basophils # (Auto) 0.0 TH/MM3 CBC Comment DIFF FINAL Differential Comment Blood Urea Nitrogen 28 MG/DL 27 MG/DL Creatinine 2.39 MG/DL 2.40 MG/DL Random Glucose 96 MG/DL 196 MG/DL Calcium Level 7.5 MG/DL 7.1 MG/DL Magnesium Level 1.7 MG/DL Sodium Level 139 MEQ/L 136 MEQ/L Potassium Level 4.0 MEQ/L 3.9 MEQ/L Chloride Level 107 MEQ/L 106 MEQ/L Carbon Dioxide Level 25.2 MEQ/L 22.6 MEQ/L White Blood Count 16.1 TH/MM3 Red Blood Count 2.56 MIL/MM3 Hemoglobin 7.4 GM/DL Hematocrit 22.1 % Mean Corpuscular Volume 86.3 FL Mean Corpuscular Hemoglobin 29.0 PG Mean Corpuscular Hemoglobin Concent 33.6 % Red Cell Distribution Width 14.8 % Platelet Count 267 TH/MM3 Mean Platelet Volume 9.4 FL Total Protein 6.8 GM/DL Anion Gap 7 MEQ/L Estimat Glomerular Filtration Rate 34 ML/MIN Protein Corrected Calcium 7.3 MG/DL Test 01/28/17 15:00 Activated Partial Thromboplast Time 61.5 SEC Objective Remarks GENERAL: Alert, no acute distress. CV: Irregular rate with tachycardia and irregular rhythm. No rubs murmurs or gallops. Resp: Clear to all station bilaterally Abdomen: Soft but distended. Negative tenderness palpation. No peritoneal signs. Extremity negative for any edema. Neuro: Alert non oriented. Medications and IVs Current Medications Medications (Trade) Dose Ordered Sig/Mansi Route Start Time Stop Time Status Last Admin (Tylenol) 650 mg Q6H PRN PO 01/10/17 17:00 01/26/17 08:20 (Proair Hfa Inh) 2 puff Q6H PRN INH 01/10/17 17:00 (Lipitor) 80 mg HS PO 01/10/17 21:00 01/27/17 21:04 (Nitrostat Sl) 0.4 mg Q3H PRN SL 01/10/17 17:00 (Ecotrin Ec) 81 mg DAILY PO 01/10/17 17:00 01/28/17 09:57 (NS Flush) 2 ml BID IV FLUSH 01/10/17 21:00 01/28/17 11:36 Miscellaneous Information 1 Q361D XX 01/10/17 17:15 (Chlorhexidine 2% Cloth) Taper DAILY@04 TOP 01/11/17 04:00 01/07/18 03:59 01/28/17 04:00 (Chlorhexidine 2% Cloth) 3 pack UNSCH PRN TOP 01/10/17 17:15 (Afia-Colace) 1 tab BID PO 01/10/17 21:00 01/28/17 09:58 (Milk Of Magnesia Liq) 30 ml Q12H PRN PO 01/10/17 17:15 (Senokot) 17.2 mg Q12H PRN PO 01/10/17 17:15 (Dulcolax Supp) 10 mg DAILY PRN RECTAL 01/10/17 17:15 (Lactulose Liq) 30 ml DAILY PRN PO 01/10/17 17:15 Sodium Chloride 1,000 ml @ 0 mls/hr Q0M PRN OTHER 01/10/17 17:47 01/10/17 22:05 Sodium Chloride 1,000 ml @ 200 mls/hr Q5H PRN IV 01/10/17 17:47 Sodium Chloride 1,000 ml @ 0 mls/hr Q0M PRN OTHER 01/10/17 17:47 (Mannitol Inj) 12.5 gm UNSCH PRN IV 01/10/17 18:00 Albumin Human 100 ml @ 60 mls/hr UNSCH PRN IV 01/10/17 18:00 (NS Flush) 5 ml UNSCH PRN IV FLUSH 01/10/17 18:00 (Heparin Inj) UNSCH PRN .XX 01/10/17 18:00 (Gentamicin (Dialysis) Inj) 20 mg UNSCH PRN OTHER 01/10/17 18:00 01/10/17 22:03 (Zofran Inj) 4 mg UNSCH PRN IV PUSH 01/10/17 18:00 01/18/17 08:51 (Tylenol) 650 mg UNSCH PRN PO 01/10/17 18:00 01/24/17 01:28 (Benadryl) 25 mg UNSCH PRN PO 01/10/17 18:00 01/27/17 21:27 (Nitrostat Sl) 0.4 mg UNSCH PRN SL 01/10/17 18:00 (Catapres) 0.1 mg UNSCH PRN PO 01/10/17 18:00 01/15/17 02:07 (Gelfoam 12 Mm/7 Mm Top) 1 foam UNSCH PRN TOP 01/10/17 18:00 Dexmedetomidine HCl 200 mcg/ Sodium Chloride 52 ml @ 5.46 mls/hr TITRATE PRN IV 01/11/17 00:00 01/12/17 14:53 (Haldol Inj) 5 mg Q4H PRN IV 01/12/17 17:00 01/27/17 21:27 (Reglan Inj) 5 mg Q8H IV PUSH 01/15/17 10:00 118/17 09:58 (Apresoline Inj) 10 mg Q4H PRN IV PUSH 01/15/17 10:00 Potassium Chloride 100 ml @ 50 mls/hr Q2H IV 01/15/17 10:00 Future Hold 01/16/17 06:11 (Catapres-Tts 0.3 Mg Patch.7d) 1 patch Q7D T-DERMAL 01/16/17 10:00 01/16/17 14:14 Miscellaneous Information 1 Q7D T-DERMAL 01/16/17 10:00 01/16/17 10:00 (Mucinex Er) 600 mg BID PO 01/16/17 21:00 01/28/17 09:57 (Oscal) 500 mg TID PO 01/17/17 13:00 01/28/17 12:32 (K-Phos) 500 mg Q12HR PO 01/17/17 14:00 01/28/17 09:58 (SEROquel) 25 mg BID PO 01/17/17 21:00 01/28/17 09:58 (Lopressor) 50 mg Q8HR PO 01/19/17 14:00 01/28/17 12:32 (Trandate Inj) 10 mg Q4H PRN IV PUSH 01/20/17 08:30 01/20/17 17:27 (Levemir Inj) 5 units Q12HR SQ 01/23/17 09:00 01/28/17 09:56 Diltiazem HCl 125 mg/Sodium Chloride 125 ml @ 5 mls/hr TITRATE PRN IV 01/23/17 12:00 01/28/17 11:54 Sodium Chloride 1,000 ml @ 84 mls/hr [id number] IV 01/23/17 12:00 01/28/17 06:45 (Dilaudid Pf Inj) 0.5 mg Q4HR PRN IV PUSH 01/23/17 14:45 01/28/17 12:33 (Dilaudid Pf Inj) 0.75 mg Q4HR PRN IV PUSH 01/23/17 14:45 01/28/17 06:43 Heparin Sodium/ Dextrose 250 ml @ 18 mls/hr TITRATE PRN IV 01/24/17 12:00 01/27/17 01:32 (D50w (Vial) Inj) 25 ml UNSCH PRN IV PUSH 01/24/17 16:00 (NovoLIN R SUPPLEMENTAL SCALE) 1 Q6HR SQ 01/24/17 18:00 01/28/17 11:35 Cefazolin Sodium/ Dextrose 50 ml @ 150 mls/hr Q8H IV 01/24/17 20:00 01/28/17 11:35 (Rifampin) 300 mg Q12H PO 01/28/17 14:00 A/P Assessment and Plan 1. Acute Metabolic Encephalopathy/Agitated Delirium, History of Previous CVA with left hemiparesis, awake and alert today. 2. Severe combined Metabolic and respiratory acidosis resolved Past Tobacco dependence continue Bronchodilator, Mucolytic and incentive spirometry 3. Atrial Flutter/Fibrillation with RVR/Elevated Troponin, History of CAD and Hypertension, Cardiology following, recommended Metoprolol Warfarin, equivocal Troponin elevation, recommended by Cardiology to stop Warfarin due to non compliance. but developed left Upper extremity DVT and was recommended to start Heparin IV. 4. DVT of the left arm on heparin 5. DM II/Dyslipidemia continue sliding scale. blood sugar stable. 6. Sepsis with MSSA had vascular cath placed 01/10 and removed 01/15, basilar opacities on lungs likely Pneumonia Still positive Blood cultures, Persistent Leukocytosis and flank pain, recommended by ID Cefazolin, Added Rifampin Cardiology for LIGIA, CT abdomen and Pelvis, Repeat Blood culture and document clearing, will need six weeks of antibiotics. 7. Elevated Troponin but no angina like symptoms, normal left ventricular function by Echo recent non ischemic nuclear stress. 8. Delirium due to another medical condition, due to lack of cooperation inability to express a rational choice and inability to verbalize reason of hospitalization and nature of her medical illnesses the patient doesn't have decision making capacity to refuse medications of to leave AMA. 9. Acute kidney Injury on chronic kidney disease, slowly improving, Nephrology specialist following. had one single HD and improved. Mild worsening Creatinine level Discussed with nurse Miss Busby. PROPH: - Bilateral lower extremity SCDs. Heparin IV DCd, protonix 40 mg IV q12 Discharge Planning Not yet ready for discharge continue Critical care management by now. Dane Gleason MD Jan 28, 2017 17:04
[2017-01-28] MEDS: HALOPERIDOL LACTATE 5 MG/ML AMP IV PRN (19:58)
--- NOTE | 2017-01-28 20:41 | RADRPT ---
EXAM DATE/TIME: 01/28/2017 20:18 [place] COMPARISON: CT ABDOMEN & PELVIS W CONTRAST, September 01, 2016, 5:51. INDICATIONS : Bilateral flank pain with abdominal tenderness and fever. ORAL CONTRAST: No oral contrast ingested. RADIATION DOSE: 19.74 CTDIvol (mGy) MEDICAL HISTORY : Cardiovascular disease. Hypertension. Chronic kidney disease. Diabetes. SURGICAL HISTORY : None. ENCOUNTER: Initial ACUITY: 1 day PAIN SCALE: 6/10 LOCATION: Bilateral abdomen TECHNIQUE: Volumetric scanning of the abdomen and pelvis was performed. Using automated exposure control and ad justment of the mA and/or kV according to patient size, radiation dose was kept as low as reasonably achievable to obtain optimal diagnostic quality images. DICOM format image data is available electro nically for review and comparison. FINDINGS: LOWER LUNGS: Worsening bibasilar consolidation when compared to prior exam. It is more pronounced on the right. A small right and tiny left pleural effusion are new from the prior study. Heart is mildly enlarged. LIVER: Homogeneous density without lesion. There is no dilation of the biliary tree. No calcified [place] es. SPLEEN: Normal size without lesion. PANCREAS: Within normal limits. KIDNEYS: Normal in size and shape. There is no mass, stone, or hydronephrosis. ADRENAL GLANDS: Within normal limits. VASCULAR: There is no aortic aneurysm. BOWEL/MESENTERY: The stomach, small bowel, and colon demonstrate no acute abnormality. There is no free intraperitone al air or fluid. ABDOMINAL WALL: There is a small umbilical hernia containing fat. Subcutaneous edema seen particular involving the le ft flank and dorsal soft tissues. RETROPERITONEUM: There is no lymphadenopathy. BLADDER: No wall thickening or mass. REPRODUCTIVE: Within normal limits. INGUINAL: There is no lymphadenopathy or hernia. MUSCULOSKELETAL: Within normal limits for patient age. CONCLUSION: 1. Bilateral pleural effusions and bibasilar infiltrates. 2. Cardiomegaly. 3. Subcutaneous edema. 4. Umbilical hernia. Jermaine Malone Jr., MD on January 28, 2017 at 20:36 Board Certified Radiologist. This report was verified electronically.
[2017-01-28] MEDS: ATORVASTATIN 80 MG TAB PO SCH (23:10)
[2017-01-29] VITALS (12 sets, daily range): BP systolic 126–144; BP diastolic 56–72; PULSE 78–132; RESP 11–24; TEMP 98.7–100.6; O2SAT 94–100
[2017-01-29] MEDS: RIFAMPIN 150 MG CAP PO SCH ×2 (03:13→14:22)
[2017-01-29] MEDS: ceFAZolin 2 GM PREMIX 50 ML IV SCH ×3 (03:13→23:45)
[2017-01-29] MEDS: METOCLOPRAMIDE HCL 10 MG/2 ML VIAL IV PUSH SCH ×3 (03:15→17:11)
[2017-01-29] MEDS: HALOPERIDOL LACTATE 5 MG/ML AMP IV PRN (03:15)
[2017-01-29] MEDS: diphenhydrAMINE HCL 25 MG CAP PO PRN (03:16)
[2017-01-29] MEDS: HYDROmorphone HCL PF 2 MG/ML VIAL IV PUSH PRN (03:18)
[2017-01-29] MEDS: CHLORHEXIDINE GLUCONATE 2 % 1 PACK (2 CLOTHS) TOP SCH (04:00)
[2017-01-29] MEDS: INSULIN NovoLIN REGULAR SUPPLEMENTAL SCALE SQ SCH ×4 (06:00→17:14)
[2017-01-29 06:16] LABS: BICARBONATE 21.8 MEQ/L (21.0-32.0); MAGNESIUM 1.7 MG/DL (1.5-2.5); POTASSIUM 4.2 MEQ/L (3.5-5.1)
[2017-01-29 06:17] LABS: APTT (PATIENT) 52.7 SEC (24.3-30.1)
[2017-01-29] MEDS: DILTIAZEM 125 MG/NS 100 ML IV PRN ×4 (06:27→16:04)
[2017-01-29] MEDS: METOPROLOL TARTRATE 50 MG TAB PO SCH ×2 (06:27→19:48)
[2017-01-29] MEDS: ASPIRIN EC 81 MG TABEC PO SCH (08:40)
[2017-01-29] MEDS: guaiFENesin E.R. 600 MG TAB PO SCH ×2 (08:40→19:47)
[2017-01-29] MEDS: CALCIUM CARBONATE 1.25 GM (CA 500 MG) TAB PO SCH ×3 (08:40→17:11)
[2017-01-29] MEDS: POTASSIUM PHOSPHATE MONOBASIC 500 MG TAB PO SCH ×2 (08:40→19:49)
[2017-01-29] MEDS: SODIUM CHLORIDE 0.9% FLUSH 10 ML FLUSH IV FLUSH SCH ×2 (08:40→19:49)
[2017-01-29] MEDS: INSULIN DETEMIR 100 UNITS/ML VIAL SQ SCH ×2 (08:40→19:49)
[2017-01-29] MEDS: DOCUSATE SODIUM 50 MG/SENNA 8.6 MG TAB PO SCH ×2 (08:41→19:48)
[2017-01-29] MEDS: QUEtiapine FUMARATE 25 MG TAB PO SCH ×2 (08:41→19:48)
--- NOTE | 2017-01-29 09:46 | HHI.IDPN ---
Subjective Subjective Remarks Is a 56-year-old male with past medical history significant for chronic kidney disease baseline creatinine 1.8-2, type 2 diabetes, history of CVA with residual left patient is a 56-year-old male, admitted to the hospital complaining of generalized weakness and dizziness for about 1 week. He apparently lives in a halfway and walks with a cane, and has left-sided weakness. There is mention that he had fallen a couple times due to the weakness. There is also mention that he was not having enough by mouth intake, as well as some diarrhea. He denies any abdominal pain, any nausea or vomiting. On initial presentation patient was found to be in atrial flutter with RVR. He also has significant acidosis, and has an elevated potassium and creatinine. Patient was seen by cardiology, and his echo showed normal EF. Patient also was seen by renal, and underwent emergency hemodialysis. His hemodynamics stabilized, and the hemodialysis has been stopped. He has good urine output. Patient has been refusing a lot of his treatment. His had some problem with nausea and vomiting. He has had on and off fevers which are low- grade, however in the last probably 4 days, his fevers have been more persistent. He is complaining of pain on the right side of his trunk. There is also mention that his left upper extremity is swollen. Patient has no central line. He has a condom catheter. Chest x-ray has shown a similar opacities bilaterally. Patient was started on antibiotics, and currently on AZT mycin, cefepime, and vancomycin. Infectious disease consultation has been requested to evaluate the patient. Notes reviewed D/W RN Patient on NPO, for LIGIA today BC with MSSA, BC still (+) C/O pain all over Ct A/P ok Has thrombus in LUE as well as in his LIJ, and [facility] [place] Echo report noted, no vegetation mentioned Still with low grade temps BP ok Antibiotics Ancef Rifampin Lines PIV Past Medical History Chronic kidney disease Type 2 diabetes Hypertension Dyslipidemia Previous stroke, with residual L weakness Atrial fibrillation/flutter CAD History of PUD Past Surgical History Throat and arm surgery Allergies: Coded Allergies: No Known Allergies (Unverified , 01/07/17) Objective . Vital Signs Date Time Temp Pulse Resp B/P (MAP) Pulse Ox O2 Delivery O2 Flow Rate FiO2 01/29/17 06:27 117 116/60 01/29/17 06:00 99 01/29/17 04:00 98.8 92 22 130/56 (80) 100 01/29/17 04:00 92 01/29/17 02:00 84 01/29/17 00:00 99.0 78 11 141/61 (87) 100 01/29/17 00:00 78 01/28/17 23:09 78 134/63 01/28/17 22:00 80 01/28/17 20:00 80 01/28/17 20:00 99.2 80 20 133/72 (92) 94 01/28/17 18:00 75 01/28/17 16:00 73 18 135/73 (93) 100 01/28/17 16:00 73 01/28/17 14:00 78 01/28/17 12:00 76 01/28/17 12:00 98.8 76 26 138/63 (88) 94 01/28/17 11:54 75 01/28/17 10:00 85 . Laboratory Tests Test 01/28/17 05:00 White Blood Count 16.1 TH/MM3 Red Blood Count 2.56 MIL/MM3 Hemoglobin 7.4 GM/DL Hematocrit 22.1 % Mean Corpuscular Volume 86.3 FL Mean Corpuscular Hemoglobin 29.0 PG Mean Corpuscular Hemoglobin Concent 33.6 % Red Cell Distribution Width 14.8 % Platelet Count 267 TH/MM3 Mean Platelet Volume 9.4 FL Laboratory Tests Test 01/28/17 05:00 01/29/17 04:33 Blood Urea Nitrogen 27 MG/DL 28 MG/DL Creatinine 2.40 MG/DL 2.65 MG/DL Random Glucose 196 MG/DL 123 MG/DL Total Protein 6.8 GM/DL Calcium Level 7.1 MG/DL 7.7 MG/DL Sodium Level 136 MEQ/L 134 MEQ/L Potassium Level 3.9 MEQ/L 4.2 MEQ/L Chloride Level 106 MEQ/L 103 MEQ/L Carbon Dioxide Level 22.6 MEQ/L 21.8 MEQ/L Anion Gap 7 MEQ/L 9 MEQ/L Estimat Glomerular Filtration Rate 34 ML/MIN 30 ML/MIN Protein Corrected Calcium 7.3 MG/DL Phosphorus Level 3.4 MG/DL Magnesium Level 1.7 MG/DL Microbiology Date/Time Source Procedure Growth Status 01/29/17 04:33 Blood Peripheral Aerobic Blood Culture Pending Received 01/29/17 04:33 Blood Peripheral Anaerobic Blood Culture Pending Received 01/28/17 15:00 Blood Peripheral Aerobic Blood Culture Pending Received 01/28/17 15:00 Blood Peripheral Anaerobic Blood Culture Pending Received 01/27/17 11:16 Blood Peripheral Aerobic Blood Culture - Preliminary Gram Positive Cocci Resulted 01/27/17 11:16 Blood Peripheral Anaerobic Blood Culture - Preliminary NO GROWTH IN 1 DAY Resulted Imaging Last Impressions Abdomen X-Ray 01/25/17 0000 Signed Impressions: Service Date/Time: Wednesday, January 25, 2017 14:33 - CONCLUSION: Nonspecific, nonobstructive bowel gas pattern. Scot Sung MD Upper Extremity Ultrasound 01/23/17 0000 Signed Impressions: Service Date/Time: Monday, January 23, 2017 17:45 - CONCLUSION: Thrombus identified within the internal jugular, subclavian, and the basilic veins. Jeyson Luciano MD Chest X-Ray 01/21/17 0000 Signed Impressions: Service Date/Time: Saturday, January 21, 2017 22:42 - CONCLUSION: New hazy opacity in both lungs with concern for ovarian edema and congestive heart failure. Jose Espinal MD Head CT 01/10/17 1257 Signed Impressions: Service Date/Time: Tuesday, January 10, 2017 13:32 - CONCLUSION: No acute disease. Jermaine Malone Jr., MD Renal Ultrasound 01/10/17 0000 Signed Impressions: Service Date/Time: Tuesday, January 10, 2017 17:01 - CONCLUSION: Normal examination. Jermaine Malone Jr., MD Physical Exam GENERAL: Awake and alert, not in respiratory distress. SKIN: Warm and dry. No generalized rash, no ecchymoses and no evidence of embolic lesions. HEAD: Atraumatic. Normocephalic. No temporal wasting, or tenderness. EYES: [place] conjunctiva. No petechia or hemorrhage. Pupils equal, round and reactive to light. Extraocular movements full and intact. No scleral icterus. No injection or drainage. EARS, NOSE AND THROAT: Nose without bleeding or purulent nasal discharge. No sinus tenderness. Moist mucosa NECK: Trachea midline. Supple and not tender, no meningeal signs. Previous vascath site looks ok, dry CARDIOVASCULAR: Tachycardic, irregular rate and rhythm. No murmurs, rubs or gallops heard RESPIRATORY: Clear to auscultation. Breath sounds equal bilaterally. No rales , wheezing or rhonchi, decreased at the bases ABDOMEN: Soft, Not tender, not distended. No guarding or rebound. Bowel sounds present and normoactive. No organomegaly. EXTREMITIES: mild BLE edema, no cyanosis. LUE is swollen : Condom cath in place NEUROLOGICAL: Awake and alert. L side plegic PSYCHIATRIC: calm, cooperative this morning LINE: No evidence of infection Assessment & Plan Remarks IMPRESSION Sepsis with MSSA - had vascath placed 01/10, removed 01/15 - has DVT LUE including LIJ and LSC, and previously had vascath and suspicious for infected thrombophlebitis - has basilar opacities, ?fluid; not coughing or congested, less likely PNA - BC still (+) - has flank pain, ?another focus/seeding Renal failure, creatinine has improved and has good UO Previous CVA with left sided weakness Atrial fib with RVR Leukocytosis, persistent PLAN Continue cefazolin Continue Rifampin Cardio for LIGIA Repeat BC to document clearing He will need 6 weeks IV Abx from date of last (+) BC Labs while on Abx: CBC, creat, CBC Follow CBC Monitor progress D/W Kimi Pal MD Jan 29, 2017 09:46
[2017-01-29] MEDS: SODIUM CHLOR 0.45% 1000 ML INJ 1,000 ML IV SCH ×2 (10:27→23:45)
--- NOTE | 2017-01-29 10:28 | HHI.NPPN ---
Subjective History of Present Illness 56-year-old male with past medical history of chronic kidney disease, diabetes mellitus, history of cerebrovascular accident with hemiparesis, ischemic heart disease, hypertension, atrial fibrillation who came to the hospital with generalized weakness and dizziness. I was called to see the patient because of very high BUN and creatinine, metabolic acidosis and hyperkalemia. The patient has known history of chronic kidney disease and his baseline creatinine seems to me in the range of 1.6 to 2.2. Additional Remarks Patient is sleepy , open eyes on command, not following any command, not in distress. Review of Systems General Constitutional: Fatigue Cardiovascular Cardiac: RODRÍGUEZ Objective Data Data Vital Signs Date Time Temp Pulse Resp B/P (MAP) Pulse Ox O2 Delivery O2 Flow Rate FiO2 01/29/17 06:27 117 116/60 01/29/17 06:00 99 01/29/17 04:00 98.8 92 22 130/56 (80) 100 01/29/17 04:00 92 01/29/17 02:00 84 01/29/17 00:00 99.0 78 11 141/61 (87) 100 01/29/17 00:00 78 01/28/17 23:09 78 134/63 01/28/17 22:00 80 01/28/17 20:00 80 01/28/17 20:00 99.2 80 20 133/72 (92) 94 01/28/17 18:00 75 01/28/17 16:00 73 18 135/73 (93) 100 01/28/17 16:00 73 01/28/17 14:00 78 01/28/17 12:00 76 01/28/17 12:00 98.8 76 26 138/63 (88) 94 01/28/17 11:54 75 -: 01/28/17 0500 01/29/17 0433 Microbiology 01/29/17 Aerobic Blood Culture, Received Pending 01/29/17 Anaerobic Blood Culture, Received Pending 01/28/17 Aerobic Blood Culture, Received Pending 01/28/17 Anaerobic Blood Culture, Received Pending Physical Exam General Appearance: No Acute Distress, Comfortable, Anxious Throat Throat Exam: Oral Mucosa [place] & Moist Pulmonary Resp Exam: Breath Sounds Equal, No Distress, Rhonchi, Decreased Bases, Diminished Breath Sounds Cardiology CV Exam: Arrhythmia Gastrointestinal/Abdomen GI Exam: Soft, Non-Tender, Bowel Sounds Present Extremeties Extremities Exam: Trace Edema Neurologic Neuro Exam: Alert, Awake Assessment/Plan Assessment Summary: ABNER/Acute Renal Failure, CKD Stage III Electrolyte Assessment: Hyperkalemia, Hypocalcemia, Metabolic Acidosis Problem List: (1) History of CVA (cerebrovascular accident) ICD Codes: Z86.73 - Personal history of transient ischemic attack (TIA), and cerebral infarction without residual deficits Status: Chronic (2) HTN (hypertension) ICD Codes: I10 - Essential (primary) hypertension Status: Chronic (3) Diabetes ICD Codes: E11.9 - Type 2 diabetes mellitus without complications Status: Acute (4) Metabolic acidemia ICD Codes: E87.2 - Acidosis (5) Hyperkalemia ICD Codes: E87.5 - Hyperkalemia Status: Acute (6) Acute renal failure ICD Codes: N17.9 - Acute kidney failure, unspecified Status: Acute Plan Patient has chronic kidney disease and develop ABNER. Also had metabolic acidosis and Hyperkalemia. Patient has HD 1 session then ARF resolved ATN resolving 1/2 NS at 84 cc/hr Creatinine 2.6 Cardiology for sim ? Endocarditis MSSA on Cefazolin replace Calcium follow BMP Problem Qualifiers (1) HTN (hypertension): Qualified Codes: I10 - Essential (primary) hypertension (2) Diabetes: (3) Acute renal failure: Qualified Codes: N17.9 - Acute kidney failure, unspecified Parth Ruiz MD Jan 29, 2017 10:28
[2017-01-29] MEDS ORDERED: CALCIUM GLUCONATE INJ 1 GM in DEXTROSE 5% IN WATER 100ML INJ 100 ML IV ONE ×2 (10:30)
--- NOTE | 2017-01-29 11:42 | HHI.PR ---
Subjective Remarks administrative specialist following, with diagnosis of Atrial Fibrillation, recommended to stop Warfarin due to Non compliance, has elevated Troponin but no angina like symptoms, normal left ventricular function by Echo recent non ischemic nuclear stress. Psychiatry specialist following with diagnosis of Delirium due to another medical condition, due to lack of cooperation inability to express a rational choice and inability to verbalize reason of hospitalization and nature of her medical illnesses the patient doesn't have decision making capacity to refuse medications of to leave AMA. 01/21: patient stable during the day, during the afternoon he started with fever for this reason was asked for CXR, blood cultures lactic acid, new CBC, UA and follow results. no nausea, vomit or diarrhea. 01/22: Seen in his bedroom with nurse Miss Cabello, no changes no nausea, vomit or diarrhea, the patient has not the drive to help for his Care I think related to Psychiatric Issues more than organic disease, will be organic if continue with this behavior. at this time somnolent but awakes and engage in conversation. 01/23: patient seen in his bedroom, continue Lethargic, continue Febrile seen with nurse Miss Moreira, asked for ID specialist consult and redevelopment specialist evaluation today, no nausea, vomit or diarrhea 01/24: Seen in his bedroom and discussed with nurse Mr. Tony, the patient has Persistent MSSA Bacteremia, antibiotics changed to Cefazolin and continue BC as per ID specialist, continue refusing his by mouth medicines. 01/25: Patient in his bedroom with nurse, discussed with Mr. Robbins no new issues , continue Atrial Fibrillation with RVR, not Improving with Cardizem. patient non compliant with his medicines he is on Metoprolol but not taking it, but today took it for the nurse. no nausea, vomit or diarrhea 01/27: Seen in his bedroom discussed with nurse patient stable as per ID specialist recommended to continue Cefazolin, Questioned the need for LIGIA due to new culture still positive, he will need six weeks of IV antibiotics , no nausea, vomit or diarrhea. 01/28: Seen in his bedroom discussed with nurse Miss Busby, has CT abdomen and pelvis ordered by ID specialist and Blood cultures positive. 01/29: Seen in his bedroom also was seen by ID specialist patient status post LIGIA, at this time re started diet, no yet result in EMR, as per ID recommended to continue Cefazolin, Rifampin, repeat BC to document clearing, patient non cooperative. Objective Vital Signs Date Time Temp Pulse Resp B/P (MAP) Pulse Ox O2 Delivery O2 Flow Rate FiO2 01/29/17 10:00 132 01/29/17 08:00 125 01/29/17 08:00 99.0 125 24 126/62 (83) 96 01/29/17 06:27 117 116/60 01/29/17 06:00 99 01/29/17 04:00 98.8 92 22 130/56 (80) 100 01/29/17 04:00 92 01/29/17 02:00 84 01/29/17 00:00 99.0 78 11 141/61 (87) 100 01/29/17 00:00 78 01/28/17 23:09 78 134/63 01/28/17 22:00 80 01/28/17 20:00 80 01/28/17 20:00 99.2 80 20 133/72 (92) 94 01/28/17 18:00 75 01/28/17 16:00 73 18 135/73 (93) 100 01/28/17 16:00 73 01/28/17 14:00 78 01/28/17 12:00 76 01/28/17 12:00 98.8 76 26 138/63 (88) 94 01/28/17 11:54 75 I/O 01/28/17 01/28/17 01/28/17 01/29/17 01/29/17 01/29/17 07:00 15:00 23:00 07:00 15:00 23:00 Intake Total 1261 ml 365 ml 1350 ml Output Total 500 ml 475 ml Balance 761 ml 365 ml 875 ml IV Total 1261 ml 365 ml 1350 ml Output Urine Total 500 ml 475 ml # Bowel Movements 1 0 Result Diagram: 01/28/17 0500 01/29/17 0433 Imaging Last Impressions Abdomen/Pelvis CT 01/28/17 0000 Signed Impressions: Service Date/Time: Saturday, January 28, 2017 20:18 - CONCLUSION: 1. Bilateral pleural effusions and bibasilar infiltrates. 2. Cardiomegaly. 3. Subcutaneous edema. 4. Umbilical hernia. Jermaine Malone Jr., MD Abdomen X-Ray 01/25/17 0000 Signed Impressions: Service Date/Time: Wednesday, January 25, 2017 14:33 - CONCLUSION: Nonspecific, nonobstructive bowel gas pattern. Scot Sung MD Upper Extremity Ultrasound 01/23/17 0000 Signed Impressions: Service Date/Time: Monday, January 23, 2017 17:45 - CONCLUSION: Thrombus identified within the internal jugular, subclavian, and the basilic veins. Jeyson Luciano MD Chest X-Ray 01/21/17 0000 Signed Impressions: Service Date/Time: Saturday, January 21, 2017 22:42 - CONCLUSION: New hazy opacity in both lungs with concern for ovarian edema and congestive heart failure. Jose Espinal MD Head CT 01/10/17 1257 Signed Impressions: Service Date/Time: Tuesday, January 10, 2017 13:32 - CONCLUSION: No acute disease. Jermaine Malone Jr., MD Renal Ultrasound 01/10/17 0000 Signed Impressions: Service Date/Time: Tuesday, January 10, 2017 17:01 - CONCLUSION: Normal examination. Jermaine Malone Jr., MD Procedures Hemodialysis. Other Results Laboratory Tests Test 01/10/17 16:57 01/10/17 18:00 01/10/17 20:17 01/11/17 03:40 Blood Gas Inspired Oxygen 21 % Nasal Screen MRSA (PCR) MRSA NOT DETECTED Hepatitis A IgM Antibody NEGATIVE Hepatitis B Surface Antigen NEGATIVE Hepatitis B Core IgM Antibody NEGATIVE Hepatitis C Antibody NEGATIVE Troponin I 2.31 NG/ML Test 01/15/17 07:20 01/17/17 05:10 01/22/17 00:15 01/22/17 22:39 Urine Amorphous Sediment OCC Urine Mucus FEW /lpf Hemoglobin A1c 7.0 % Free Thyroxine 1.77 NG/DL Thyroid Stimulating Hormone 3rd Gen 1.190 uIU/ML Lactic Acid Level 1.1 mmol/L Basophils % 1 % Metamyelocytes 1 % Ionized Calcium 5.1 mg/dL Test 01/23/17 03:25 01/23/17 05:50 01/23/17 07:52 01/23/17 14:26 Toxic Granulation 1+ Dohle Bodies PRESENT Blood Urea Nitrogen 33 MG/DL Creatinine 2.20 MG/DL Random Glucose 176 MG/DL Total Protein 6.8 GM/DL Albumin 2.0 GM/DL Calcium Level 7.6 MG/DL Phosphorus Level 2.0 MG/DL Alkaline Phosphatase 67 U/L Aspartate Amino Transf (AST/SGOT) 55 U/L Alanine Aminotransferase (ALT/SGPT) 28 U/L Total Bilirubin 1.1 MG/DL Sodium Level 136 MEQ/L Potassium Level 3.8 MEQ/L Chloride Level 101 MEQ/L Carbon Dioxide Level 26.9 MEQ/L Blood Gas Puncture Site LT RADIAL Blood Gas Patient Temperature 98.6 Blood Gas HCO3 26 mmol/L Blood Gas Base Excess 2.3 mmol/L Blood Gas Oxygen Saturation 91 % Arterial Blood pH 7.49 Arterial Blood Partial Pressure CO2 34 mmHg Arterial Blood Partial Pressure O2 67 mmHg Arterial Blood Oxygen Content 13.0 Vol % Arterial Blood Carboxyhemoglobin 1.0 % Arterial Blood Methemoglobin 1.3 % Blood Gas Hemoglobin 10.1 G/DL Oxygen Delivery Device NASAL CANNULA Blood Gas Liter Flow 4 L/M Nucleated Red Blood Cells 2 /100 WBC Plasma Cells 1 % Red Cell Morphology Comment NORMAL Hematology Comments Urine Color YELLOW Urine Turbidity HAZY Urine pH 6.0 Urine Specific [place] 1.015 Urine Protein 100 mg/dL Urine Glucose (UA) NEG mg/dL Urine Ketones 10 mg/dL Urine Occult Blood MOD Urine Nitrite NEG Urine Bilirubin NEG Urine Urobilinogen LESS THAN 2.0 MG/DL Urine Leukocyte Esterase LARGE Urine RBC LESS THAN 1 /hpf Urine WBC 158 /hpf Urine WBC Clumps FEW Urine Squamous Epithelial Cells 1 /hpf Urine Bacteria FEW /hpf Microscopic Urinalysis Comment CULTURE INDICATED Test 01/23/17 22:40 01/25/17 07:52 01/26/17 09:58 01/28/17 05:00 Differential Total Cells Counted 100 Neutrophils % (Manual) 89 % Band Neutrophils % 3 % Lymphocytes % 4 % Monocytes % 3 % Eosinophils % 1 % Neutrophils # (Manual) 20.6 TH/MM3 Toxic Vacuolation PRESENT Platelet Estimate NORMAL Platelet Morphology Comment NORMAL Prothrombin Time 17.1 SEC Prothromb Time International Ratio 1.5 RATIO Neutrophils (%) (Auto) 86.4 % Lymphocytes (%) (Auto) 6.8 % Monocytes (%) (Auto) 5.7 % Eosinophils (%) (Auto) 0.9 % Basophils (%) (Auto) 0.2 % Neutrophils # (Auto) 14.0 TH/MM3 Lymphocytes # (Auto) 1.1 TH/MM3 Monocytes # (Auto) 0.9 TH/MM3 Eosinophils # (Auto) 0.1 TH/MM3 Basophils # (Auto) 0.0 TH/MM3 CBC Comment DIFF FINAL Differential Comment White Blood Count 16.1 TH/MM3 Red Blood Count 2.56 MIL/MM3 Hemoglobin 7.4 GM/DL Hematocrit 22.1 % Mean Corpuscular Volume 86.3 FL Mean Corpuscular Hemoglobin 29.0 PG Mean Corpuscular Hemoglobin Concent 33.6 % Red Cell Distribution Width 14.8 % Platelet Count 267 TH/MM3 Mean Platelet Volume 9.4 FL Protein Corrected Calcium 7.3 MG/DL Blood Urea Nitrogen 27 MG/DL Creatinine 2.40 MG/DL Random Glucose 196 MG/DL Total Protein 6.8 GM/DL Calcium Level 7.1 MG/DL Sodium Level 136 MEQ/L Potassium Level 3.9 MEQ/L Chloride Level 106 MEQ/L Carbon Dioxide Level 22.6 MEQ/L Test 01/29/17 04:33 01/29/17 05:30 Blood Urea Nitrogen 28 MG/DL Creatinine 2.65 MG/DL Random Glucose 123 MG/DL Calcium Level 7.7 MG/DL Phosphorus Level 3.4 MG/DL Magnesium Level 1.7 MG/DL Sodium Level 134 MEQ/L Potassium Level 4.2 MEQ/L Chloride Level 103 MEQ/L Carbon Dioxide Level 21.8 MEQ/L Anion Gap 9 MEQ/L Estimat Glomerular Filtration Rate 30 ML/MIN Activated Partial Thromboplast Time 52.7 SEC Objective Remarks GENERAL: Alert, no acute distress. CV: Irregular rate with tachycardia and irregular rhythm. No rubs murmurs or gallops. Resp: Clear to all station bilaterally Abdomen: Soft but distended. Negative tenderness palpation. No peritoneal signs. Extremity negative for any edema. Neuro: Alert non oriented. Medications and IVs Current Medications Medications (Trade) Dose Ordered Sig/Mansi Route Start Time Stop Time Status Last Admin (Tylenol) 650 mg Q6H PRN PO 01/10/17 17:00 01/26/17 08:20 (Proair Hfa Inh) 2 puff Q6H PRN INH 01/10/17 17:00 (Lipitor) 80 mg HS PO 01/10/17 21:00 01/28/17 23:10 (Nitrostat Sl) 0.4 mg Q3H PRN SL 01/10/17 17:00 (Ecotrin Ec) 81 mg DAILY PO 01/10/17 17:00 01/29/17 08:40 (NS Flush) 2 ml BID IV FLUSH 10/21/17 21:00 01/29/17 08:40 Miscellaneous Information 1 Q361D XX 01/10/17 17:15 (Chlorhexidine 2% Cloth) Taper DAILY@04 TOP 01/11/17 04:00 01/07/18 03:59 01/29/17 04:00 (Chlorhexidine 2% Cloth) 3 pack UNSCH PRN TOP 01/10/17 17:15 (Afia-Colace) 1 tab BID PO 01/10/17 21:00 01/29/17 08:41 (Milk Of Magnesia Liq) 30 ml Q12H PRN PO 01/10/17 17:15 (Senokot) 17.2 mg Q12H PRN PO 01/10/17 17:15 (Dulcolax Supp) 10 mg DAILY PRN RECTAL 01/10/17 17:15 (Lactulose Liq) 30 ml DAILY PRN PO 01/10/17 17:15 Sodium Chloride 1,000 ml @ 0 mls/hr Q0M PRN OTHER 01/10/17 17:47 01/10/17 22:05 Sodium Chloride 1,000 ml @ 200 mls/hr Q5H PRN IV 01/10/17 17:47 Sodium Chloride 1,000 ml @ 0 mls/hr Q0M PRN OTHER 01/10/17 17:47 (Mannitol Inj) 12.5 gm UNSCH PRN IV 01/10/17 18:00 Albumin Human 100 ml @ 60 mls/hr UNSCH PRN IV 01/10/17 18:00 (NS Flush) 5 ml UNSCH PRN IV FLUSH 01/10/17 18:00 (Heparin Inj) UNSCH PRN .XX 01/10/17 18:00 (Gentamicin (Dialysis) Inj) 20 mg UNSCH PRN OTHER 01/10/17 18:00 01/10/17 22:03 (Zofran Inj) 4 mg UNSCH PRN IV PUSH 01/10/17 18:00 01/18/17 08:51 (Tylenol) 650 mg UNSCH PRN PO 01/10/17 18:00 01/24/17 01:28 (Benadryl) 25 mg UNSCH PRN PO 01/10/17 18:00 01/29/17 03:16 (Nitrostat Sl) 0.4 mg UNSCH PRN SL 01/10/17 18:00 (Catapres) 0.1 mg UNSCH PRN PO 01/10/17 18:00 01/15/17 02:07 (Gelfoam 12 Mm/7 Mm Top) 1 foam UNSCH PRN TOP 01/10/17 18:00 Dexmedetomidine HCl 200 mcg/ Sodium Chloride 52 ml @ 5.46 mls/hr TITRATE PRN IV 01/11/17 00:00 01/12/17 14:53 (Haldol Inj) 5 mg Q4H PRN IV 01/12/17 17:00 01/29/17 03:15 (Reglan Inj) 5 mg Q8H IV PUSH 01/15/17 10:00 01/29/17 10:27 (Apresoline Inj) 10 mg Q4H PRN IV PUSH 01/15/17 10:00 Potassium Chloride 100 ml @ 50 mls/hr Q2H IV 01/15/17 10:00 Future Hold 01/16/17 06:11 (Catapres-Tts 0.3 Mg Patch.7d) 1 patch Q7D T-DERMAL 01/16/17 10:00 01/16/17 14:14 Miscellaneous Information 1 Q7D T-DERMAL 01/16/17 10:00 01/16/17 10:00 (Mucinex Er) 600 mg BID PO 01/16/17 21:00 01/29/17 08:40 (Oscal) 500 mg TID PO 01/17/17 13:00 01/29/17 08:40 (K-Phos) 500 mg Q12HR PO 01/17/17 14:00 01/29/17 08:40 (SEROquel) 25 mg BID PO 01/17/17 21:00 01/29/17 08:41 (Lopressor) 50 mg Q8HR PO 01/19/17 14:00 01/29/17 06:27 (Trandate Inj) 10 mg Q4H PRN IV PUSH 01/20/17 08:30 01/20/17 17:27 (Levemir Inj) 5 units Q12HR SQ 01/23/17 09:00 01/28/17 21:00 Diltiazem HCl 125 mg/Sodium Chloride 125 ml @ 5 mls/hr TITRATE PRN IV 01/23/17 12:00 01/29/17 06:27 Sodium Chloride 1,000 ml @ 84 mls/hr [id number] IV 01/23/17 12:00 01/29/17 10:27 (Dilaudid Pf Inj) 0.5 mg Q4HR PRN IV PUSH 01/23/17 14:45 01/29/17 03:18 (Dilaudid Pf Inj) 0.75 mg Q4HR PRN IV PUSH 01/23/17 14:45 01/28/17 19:59 Heparin Sodium/ Dextrose 250 ml @ 18 mls/hr TITRATE PRN IV 01/24/17 12:00 01/27/17 01:32 (D50w (Vial) Inj) 25 ml UNSCH PRN IV PUSH 01/24/17 16:00 (NovoLIN R SUPPLEMENTAL SCALE) 1 Q6HR SQ 01/24/17 18:00 01/28/17 11:35 Cefazolin Sodium/ Dextrose 50 ml @ 150 mls/hr Q8H IV 01/24/17 20:00 01/29/17 03:13 (Rifampin) 300 mg Q12H PO 01/28/17 14:00 01/29/17 03:13 A/P Assessment and Plan 1. Acute Metabolic Encephalopathy/Agitated Delirium, History of Previous CVA with left hemiparesis, awake and alert today. 2. Severe combined Metabolic and respiratory acidosis resolved Past Tobacco dependence continue Bronchodilator, Mucolytic and incentive spirometry 3. Atrial Flutter/Fibrillation with RVR/Elevated Troponin, History of CAD and Hypertension, Cardiology following, recommended Metoprolol Warfarin, equivocal Troponin elevation, recommended by Cardiology to stop Warfarin due to non compliance. but developed left Upper extremity DVT and was recommended to start Heparin IV. 4. DVT of the left arm on heparin 5. DM II/Dyslipidemia continue sliding scale. blood sugar stable. 6. Sepsis with MSSA had vascular cath placed 01/10 and removed 01/15, basilar opacities on lungs likely Pneumonia Still positive Blood cultures, Persistent Leukocytosis and flank pain, recommended by ID Cefazolin, Added Rifampin Cardiology for LIGIA, CT abdomen and Pelvis, Repeat Blood culture and document clearing, will need six weeks of antibiotics. status post LIGIA, at this time re started diet, no yet result in EMR, as per ID recommended to continue Cefazolin, Rifampin, repeat BC to document clearing, patient non cooperative. 7. Elevated Troponin but no angina like symptoms, normal left ventricular function by Echo recent non ischemic nuclear stress. 8. Delirium due to another medical condition, due to lack of cooperation inability to express a rational choice and inability to verbalize reason of hospitalization and nature of her medical illnesses the patient doesn't have decision making capacity to refuse medications of to leave AMA. 9. Acute kidney Injury on chronic kidney disease, slowly improving, Nephrology specialist following. had one single HD and improved. Mild worsening Creatinine level Discussed with nurse PROPH: - Bilateral lower extremity SCDs. Heparin IV DCd, protonix 40 mg IV q12 Discharge Planning Not yet ready for discharge continue Critical care management by now. Dane Gleason MD Jan 29, 2017 11:42 am
--- NOTE | 2017-01-29 14:54 | ECHRPT ---
Indication: sepsis endocarditis CONCLUSIONS Normal left ventricular size and wall thickness. The left ventricular systolic function is normal wi th an estimated ejection fraction in the range of 60-65%. Left ventricular diastolic function parameters a re normal. No evidence for endocarditis. Structurally normal mitral valve. Mild mitral valve regurgitation. Structurally normal tricuspid valve. There is trace tricuspid valve regurgitation. BP: / HR: Rhythm: Technical Quality: Medications Complications Proc. Components FINDINGS LEFT VENTRICLE Normal left ventricular size and wall thickness. The left ventricular systolic function is normal wi th an estimated ejection fraction in the range of 60-65%. Left ventricular diastolic function parameters a re normal. RIGHT VENTRICLE Normal right ventricular size and systolic function. LEFT ATRIUM The left atrial size is normal. RIGHT ATRIUM The right atrial size is normal. ATRIAL APPENDAGES Normal ATRIAL SEPTUM Normal atrial septal thickness without atrial level shunting by limited color doppler interrogation. AORTA The aortic root and proximal ascending aorta are normal in size on limited imaging. MITRAL VALVE Structurally normal mitral valve. Mild mitral valve regurgitation. AORTIC VALVE Trileaflet aortic valve. No aortic valve stenosis or regurgitation. TRICUSPID VALVE Structurally normal tricuspid valve. There is trace tricuspid valve regurgitation. VESSELS The inferior vena cava is normal in size. PULMONARY VALVE The pulmonary valve is not well visualized. PERICADIUM No pericardial effusion. Nikolay Oliveros MD (Electronically Signed) Final Date:29 January 2017 14:53
--- NOTE | 2017-01-29 15:43 | HHI.HCPN ---
Reason for visit a. To assist with evaluation and management of symptoms including: pain, weakness, decreased appetite. b. To assist medical decision maker(s) with: better understanding of current medical conditions; weighing benefits/burdens of medical treatment options; making medical treatment decisions. . Subjective/Interval History Patient seen and examined in ICU. Also present Sonja Malone LCSW. He is lethargic, briefly arouses. Does not answer questions for me today. He does not appear painful or short or breath. He did not eat breakfast today. Tmax 99. Repeat cultures pending, remains on Cefazolin. Tachycardic rate 130s. Creatinine continues to rise now 2.65. Remains on heparin and Cardizem drip. He appears to be taking PO meds. Nursing documentation indicates no meals since 01/27/17. Limited fluid intake. Left message for nurse to confirm the accuracy of this documentation. CT abdomen and pelvis revealed bilateral pleural effusions and bibasilar infiltrates, cardiomegaly, subcutaneous edema and umbical hernia. LIGIA with EF 60-65%, no evidence for endocarditis, mild mitral valve regurgitation. . Family/friend interactions No family at bedside. . Advance Directives Living Will: Never completed Health Care Surrogate: Never completed Durable Power of Specialty Finishing Utility Person: Never completed Advance Directive Specifics Health Care Surrogate(s): Patient is incapacitated to make his own health care decisions, uncertain if he will regain capacity. Single. No children. Mother in a senior living with underlying schizophrenia, not capacitated herself. Father . 2 sisters and one brother. 2 sisters, Lizeth and Alejandrina do not wish to serve as healthcare proxy decision makers. Therefore, healthcare proxy decision-making will fall to the patient's brother,Isabela Andrews, he is willing to serve in this role. . Significant change in goals: FULL CODE. Patient is not capacitated to make his own decisions. Brother, Isabela / HCP goals remain aggressive. . Objective Vital Signs Date Time Temp Pulse Resp B/P (MAP) Pulse Ox O2 Delivery O2 Flow Rate FiO2 01/29/17 14:00 132 01/29/17 12:00 98.7 93 22 144/63 (90) 95 01/29/17 12:00 93 01/29/17 10:00 132 01/29/17 08:00 125 01/29/17 08:00 99.0 125 24 126/62 (83) 96 01/29/17 06:27 117 116/60 01/29/17 06:00 99 01/29/17 04:00 98.8 92 22 130/56 (80) 100 01/29/17 04:00 92 01/29/17 02:00 84 01/29/17 00:00 99.0 78 11 141/61 (87) 100 01/29/17 00:00 78 01/28/17 23:09 78 134/63 01/28/17 22:00 80 01/28/17 20:00 80 01/28/17 20:00 99.2 80 20 133/72 (92) 94 01/28/17 18:00 75 01/28/17 16:00 73 18 135/73 (93) 100 01/28/17 16:00 73 Intake & Output 01/29/17 01/29/17 07:00 19:00 Intake Total 1350 ml Output Total 475 ml Balance 875 ml IV Total 1350 ml Output Urine Total 475 ml # Bowel Movements 0 Physical Exam CONSTITUTIONAL/GENERAL: This is an adequately nourished patient, in no apparent distress. TUBES/LINES/DRAINS: PIV, condom catheter. SKIN: Skin temperature appropriate. Not diaphoretic. CARDIOVASCULAR: Irregular, tachycardic. RESPIRATORY/CHEST: Unlabored respirations. Scattered course breath sounds. GASTROINTESTINAL: Abdomen soft, non-tender, nondistended. No guarding. Bowel sounds present. GENITOURINARY: Without palpable bladder distension. Catheter in place. 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 Left upper extremity edema, new. NEUROLOGICAL: lethargic, arousable, does not answer questions today. PSYCHIATRIC: lethargic. . Diagnostic Tests Laboratory Laboratory Tests Test 01/26/17 16:50 01/26/17 22:57 01/27/17 05:22 01/27/17 11:16 Activated Partial Thromboplast Time 68.5 SEC (24.3-30.1) 70.9 SEC (24.3-30.1) 75.5 SEC (24.3-30.1) 50.3 SEC (24.3-30.1) White Blood Count 16.6 TH/MM3 (4.0-11.0) Red Blood Count 2.96 MIL/MM3 (4.50-5.90) Hemoglobin 8.5 GM/DL (13.0-17.0) Hematocrit 25.4 % (39.0-51.0) Mean Corpuscular Volume 85.9 FL (80.0-100.0) Mean Corpuscular Hemoglobin 28.6 PG (27.0-34.0) Mean Corpuscular Hemoglobin Concent 33.3 % (32.0-36.0) Red Cell Distribution Width 14.7 % (11.6-17.2) Platelet Count 292 TH/MM3 (150-450) Mean Platelet Volume 8.9 FL (7.0-11.0) Test 01/27/17 20:35 01/28/17 05:00 01/28/17 15:00 01/29/17 04:33 Activated Partial Thromboplast Time 74.1 SEC (24.3-30.1) 66.7 SEC (24.3-30.1) 61.5 SEC (24.3-30.1) White Blood Count 16.1 TH/MM3 (4.0-11.0) Red Blood Count 2.56 MIL/MM3 (4.50-5.90) Hemoglobin 7.4 GM/DL (13.0-17.0) Hematocrit 22.1 % (39.0-51.0) Mean Corpuscular Volume 86.3 FL (80.0-100.0) Mean Corpuscular Hemoglobin 29.0 PG (27.0-34.0) Mean Corpuscular Hemoglobin Concent 33.6 % (32.0-36.0) Red Cell Distribution Width 14.8 % (11.6-17.2) Platelet Count 267 TH/MM3 (150-450) Mean Platelet Volume 9.4 FL (7.0-11.0) Blood Urea Nitrogen 27 MG/DL (7-18) 28 MG/DL (7-18) Creatinine 2.40 MG/DL (0.60-1.30) 2.65 MG/DL (0.60-1.30) Random Glucose 196 MG/DL (74-106) 123 MG/DL (74-106) Total Protein 6.8 GM/DL (6.4-8.2) Calcium Level 7.1 MG/DL (8.5-10.1) 7.7 MG/DL (8.5-10.1) Sodium Level 136 MEQ/L (136-145) 134 MEQ/L (136-145) Potassium Level 3.9 MEQ/L (3.5-5.1) 4.2 MEQ/L (3.5-5.1) Chloride Level 106 MEQ/L (98-107) 103 MEQ/L (98-107) Carbon Dioxide Level 22.6 MEQ/L (21.0-32.0) 21.8 MEQ/L (21.0-32.0) Anion Gap 7 MEQ/L (5-15) 9 MEQ/L (5-15) Estimat Glomerular Filtration Rate 34 ML/MIN (>89) 30 ML/MIN (>89) Protein Corrected Calcium 7.3 MG/DL (8.5-10.1) Phosphorus Level 3.4 MG/DL (2.5-4.9) Magnesium Level 1.7 MG/DL (1.5-2.5) Test 01/29/17 05:30 01/29/17 12:50 Activated Partial Thromboplast Time 52.7 SEC (24.3-30.1) Result Diagram: 01/28/17 0500 01/29/17 0433 Microbiology Microbiology Date/Time Source Procedure Growth Status 01/29/17 04:33 Blood Peripheral Aerobic Blood Culture Pending Received 01/29/17 04:33 Blood Peripheral Anaerobic Blood Culture Pending Received 01/28/17 15:00 Blood Peripheral Aerobic Blood Culture - Preliminary NO GROWTH IN 1 DAY Resulted 01/28/17 15:00 Blood Peripheral Anaerobic Blood Culture - Preliminary NO GROWTH IN 1 DAY Resulted 01/27/17 11:16 Blood Peripheral Aerobic Blood Culture - Final Staphylococcus Aureus Resulted 01/27/17 11:16 Blood Peripheral Anaerobic Blood Culture - Preliminary NO GROWTH IN 2 DAYS Resulted Imaging Last Impressions Abdomen/Pelvis CT 01/28/17 0000 Signed Impressions: Service Date/Time: Saturday, January 28, 2017 20:18 - CONCLUSION: 1. Bilateral pleural effusions and bibasilar infiltrates. 2. Cardiomegaly. 3. Subcutaneous edema. 4. Umbilical hernia. Jermaine Malone Jr., MD Abdomen X-Ray 01/25/17 0000 Signed Impressions: Service Date/Time: Wednesday, January 25, 2017 14:33 - CONCLUSION: Nonspecific, nonobstructive bowel gas pattern. Scot Sung MD Upper Extremity Ultrasound 01/23/17 0000 Signed Impressions: Service Date/Time: Monday, January 23, 2017 17:45 - CONCLUSION: Thrombus identified within the internal jugular, subclavian, and the basilic veins. Jeyson Luciano MD Chest X-Ray 01/21/17 0000 Signed Impressions: Service Date/Time: Saturday, January 21, 2017 22:42 - CONCLUSION: New hazy opacity in both lungs with concern for ovarian edema and congestive heart failure. Jose Espinal MD Head CT 01/10/17 1257 Signed Impressions: Service Date/Time: Tuesday, January 10, 2017 13:32 - CONCLUSION: No acute disease. Jermaine Malone Jr., MD Renal Ultrasound 01/10/17 0000 Signed Impressions: Service Date/Time: Tuesday, January 10, 2017 17:01 - CONCLUSION: Normal examination. Jermaine Malone Jr., MD Assessment and Plan Disease Oriented Problem List: (1) Leukocytosis (2) Malnutrition (3) HTN (hypertension) (4) Atrial flutter (5) Acute metabolic encephalopathy (6) Acute on chronic kidney failure (7) Diabetes Symptom Scale: (1) Pain 0-10 Scale: Unable to quantify Comment: Patient not answering most questions. (2) Weakness 0-10 Scale: Unable to quantify Comment: Secondary to prior CVA, left hemiparesis (3) Decreased appetite 0-10 Scale: Unable to quantify Comment: eating very little Pertinent Non-Medical Issues Psychosocial: Single. No children. Disabled. Brother, Isabela Andrews is serving as healthcare proxy decision maker per [place] statutes. Spiritual: [employer]ism caroline. Legal:Patient deemed incapacitated per psychiatry to make his own health care decisions, uncertain if he will regain capacity. Single. No children. Mother in a senior living with underlying schizophrenia, not capacitated herself. Father . 2 sisters and one brother. 2 sisters, Lizeth and Alejandrina do not wish to serve as healthcare proxy decision makers. Therefore, healthcare proxy decision-making will fall to the patient's brother,Isabela Andrews, he is willing to serve in this role. Ethical issues impacting care: no known concerns at this time. . Important Contacts * Isabela Andrews, brother/HCP: [phone] * Christy Colon, ex sister in law ([place] ex- - who trusts): * Alta Andrews, sister opted out of HCP decision-making and [phone] * Alejandrina sifuentes, sister, opted out of HCP decision [phone] * Kylee Kendall, mother, incapacitated, in SNF . Prognosis Mr. Andrews is a 56-year-old male with long history of noncompliance, refusing medication, questionable underlying psychiatric disease, admitted with acute on chronic renal failure, coronary artery disease, atrial fib/flutter refusing medications. Patient remains high risk for repeat hospitalization, further decline or even . Uncertain if patient has underlying psychiatric disease if this was treated would he be more readily open to taking medications. Will attempt to discuss with psychiatry. Family feels patient has had psychiatric issues since he was a child that were never diagnosed. . Code Status: Full Code Plan * Decision Maker: Patient deemed incapacitated per psychiatry to make his own health care decisions, uncertain if he will regain capacity. Single. No children. Mother in a senior living with underlying schizophrenia, not capacitated herself. Father . 2 sisters and one brother. 2 sisters, Lizeth and Alejandrina do not wish to serve as healthcare proxy decision makers. Therefore, healthcare proxy decision-making will fall to the patient's brother, Yareli Andrews, he is willing to serve in this role. * FULL CODE - DNR revoked by Yareli (HCP) on 01/23/17. * Goals remain aggressive including dialysis, feeding tube, forced medications if needed. Recommend consideration of feeding tube. * SYMPTOMS: Pain: no obvious signs of pain during my visit. Weakness: debility due to prior stroke. * Palliative care will continue to follow throughout hospital course to assist with symptom management and clarification of goals as needed. . Attestation To help prompt me to consider important information that might be impacting today's encounter and assessment, information from prior notes written by myself or my colleagues may have been "brought forward" into today's note. My signature on this note, however, is an attestation that I personally performed the exam, history, and/or decision-making noted today, and, unless otherwise indicated, the interactions with patient, family, and staff as well as the review of records all occurred today. I also attest that the listed assessment and stated plan reflect my best clinical judgment today based on the combination of historical information, prior notes, and today's exam/ interactions. When time spent is documented, it refers only to time spent today by the signer, or if indicated, combined time spent today by collaborating physician/nurse practitioner. Dariana Stephen Jan 29, 2017 15:43
[2017-01-29 16:31] LABS: APTT (PATIENT) 45.9 SEC (24.3-30.1)
[2017-01-29] MEDS: ATORVASTATIN 80 MG TAB PO SCH (19:49)
[2017-01-30] VITALS (12 sets, daily range): BP systolic 120–154; BP diastolic 62–93; PULSE 80–142; RESP 25–49; TEMP 98.1–101.1; O2SAT 94–99
[2017-01-30] MEDS: DILTIAZEM 125 MG/NS 100 ML IV PRN ×8 (00:26→19:19)
[2017-01-30] MEDS: HEPARIN-D5W 25,000 U/250 ML 250 ML IV PRN (00:28)
[2017-01-30] MEDS: METOCLOPRAMIDE HCL 10 MG/2 ML VIAL IV PUSH SCH ×3 (01:51→18:41)
[2017-01-30] MEDS: RIFAMPIN 150 MG CAP PO SCH ×2 (01:51→14:00)
[2017-01-30] MEDS: ACETAMINOPHEN 325 MG TAB PO PRN (01:51)
[2017-01-30] MEDS: CHLORHEXIDINE GLUCONATE 2 % 1 PACK (2 CLOTHS) TOP SCH (04:00)
[2017-01-30 05:25] LABS: APTT (PATIENT) 71.3 SEC (24.3-30.1)
[2017-01-30 05:50] LABS: BICARBONATE 22.5 MEQ/L (21.0-32.0); POTASSIUM 3.9 MEQ/L (3.5-5.1)
[2017-01-30] MEDS: INSULIN NovoLIN REGULAR SUPPLEMENTAL SCALE SQ SCH ×4 (06:00→18:00)
[2017-01-30 06:31] LABS: CALCIUM-PROTEIN CORRECTED 7.2 MG/DL (8.5-10.1)
[2017-01-30] MEDS ORDERED: CALCIUM GLUCONATE INJ 1 GM in DEXTROSE 5% IN WATER 100ML INJ 100 ML IV ONE ×2 (08:00)
[2017-01-30] MEDS: POTASSIUM PHOSPHATE MONOBASIC 500 MG TAB PO SCH ×3 (08:38→22:00)
[2017-01-30] MEDS: DOCUSATE SODIUM 50 MG/SENNA 8.6 MG TAB PO SCH ×3 (08:38→21:00)
[2017-01-30] MEDS: SODIUM CHLORIDE 0.9% FLUSH 10 ML FLUSH IV FLUSH SCH ×2 (08:38→21:59)
[2017-01-30] MEDS: QUEtiapine FUMARATE 25 MG TAB PO SCH ×3 (08:38→22:00)
[2017-01-30] MEDS: ASPIRIN EC 81 MG TABEC PO SCH (08:38)
[2017-01-30] MEDS: CALCIUM CARBONATE 1.25 GM (CA 500 MG) TAB PO SCH ×4 (08:39→18:00)
[2017-01-30] MEDS: guaiFENesin E.R. 600 MG TAB PO SCH ×3 (08:39→21:59)
[2017-01-30] MEDS: METOPROLOL TARTRATE 50 MG TAB PO SCH ×3 (08:39→22:00)
[2017-01-30] MEDS: INSULIN DETEMIR 100 UNITS/ML VIAL SQ SCH ×2 (08:40→22:01)
[2017-01-30] MEDS: REMOVE OLD PATCH T-DERMAL SCH (10:00)
--- NOTE | 2017-01-30 11:00 | HHI.PR ---
Subjective Remarks f/u; bacteremia/ a-fib in no acute distress. HR still elevated. T max 101. d/w the RN at the bedside. Objective Vitals Vital Signs Date Time Temp Pulse Resp B/P (MAP) Pulse Ox O2 Delivery O2 Flow Rate FiO2 01/30/17 08:57 130 120/62 01/30/17 08:00 98.8 125 30 120/62 (81) 94 01/30/17 08:00 125 01/30/17 06:45 112 120/62 01/30/17 06:00 122 01/30/17 04:00 114 01/30/17 04:00 98.2 114 48 122/64 (83) 99 01/30/17 02:00 118 01/30/17 00:26 83 128/67 01/30/17 00:00 101.1 97 25 128/67 (87) 97 01/30/17 00:00 97 128/67 01/30/17 00:00 97 01/29/17 22:00 81 01/29/17 20:00 121 01/29/17 20:00 100.6 121 21 136/72 (93) 94 01/29/17 19:00 145 158/72 01/29/17 18:00 121 01/29/17 16:04 131 136/64 01/29/17 16:00 98.7 127 16 136/64 (88) 99 01/29/17 16:00 127 01/29/17 14:00 132 01/29/17 12:00 98.7 93 22 144/63 (90) 95 01/29/17 12:00 93 I/O 01/29/17 01/29/17 01/29/17 01/30/17 01/30/17 01/30/17 07:00 15:00 23:00 07:00 15:00 23:00 Intake Total 1350 ml 1160 ml 185 ml 2493 ml Output Total 475 ml 550 ml 550 ml Balance 875 ml 1160 ml -365 ml 1943 ml Intake Oral 60 ml 480 ml IV Total 1350 ml 1160 ml 125 ml 2013 ml Output Urine Total 475 ml 550 ml 550 ml # Bowel Movements 0 0 1 Result Diagram: 01/28/17 0500 01/30/17 0458 Imaging Last Impressions Abdomen/Pelvis CT 01/28/17 0000 Signed Impressions: Service Date/Time: Saturday, January 28, 2017 20:18 - CONCLUSION: 1. Bilateral pleural effusions and bibasilar infiltrates. 2. Cardiomegaly. 3. Subcutaneous edema. 4. Umbilical hernia. Jermaine Malone Jr., MD Abdomen X-Ray 01/25/17 0000 Signed Impressions: Service Date/Time: Wednesday, January 25, 2017 14:33 - CONCLUSION: Nonspecific, nonobstructive bowel gas pattern. Scot Sung MD Upper Extremity Ultrasound 01/23/17 0000 Signed Impressions: Service Date/Time: Monday, January 23, 2017 17:45 - CONCLUSION: Thrombus identified within the internal jugular, subclavian, and the basilic veins. Jeyson Luciano MD Chest X-Ray 01/21/17 0000 Signed Impressions: Service Date/Time: Saturday, January 21, 2017 22:42 - CONCLUSION: New hazy opacity in both lungs with concern for ovarian edema and congestive heart failure. Jose Espinal MD Head CT 01/10/17 1257 Signed Impressions: Service Date/Time: Tuesday, January 10, 2017 13:32 - CONCLUSION: No acute disease. Jermaine Malone Jr., MD Renal Ultrasound 01/10/17 0000 Signed Impressions: Service Date/Time: Tuesday, January 10, 2017 17:01 - CONCLUSION: Normal examination. Jermaine Malone Jr., MD Objective Remarks GENERAL: in no apparent distress. CARDIOVASCULAR: tachycardic with irregular rhythm without murmurs, gallops, or rubs. RESPIRATORY: Clear to auscultation. Breath sounds equal bilaterally. No wheezes , rales, or rhonchi. GASTROINTESTINAL: Abdomen soft, non-tender, nondistended. Normal, active bowel sounds MUSCULOSKELETAL: Extremities without clubbing, cyanosis, or edema. NEURO: Awake and alert. Procedures LIGIA Medications and IVs Current Medications Meclizine HCl (Antivert) 25 mg ONCE ONCE PO Last administered on 01/10/17t 13 :42; Start 01/10/17 at 13:00; Stop 01/10/17 at 13:01; Status DC Sodium Chloride (NS Flush) 2 ml UNSCH PRN IVF FLUSH AFTER USING IV ACCESS; Start 01/10/17 at 13:00; Stop 01/10/17 at 22:25; Status DC Acetaminophen (Tylenol) 650 mg ONCE ONCE PO Last administered on 01/10/17 14 :07; Start 01/10/17 at 14:00; Stop 01/10/17 at 14:01; Status DC Insulin Human Regular (NovoLIN R INJ) 10 units ONCE ONCE IV PUSH Last administered on 01/10/17 16:14; Start 01/10/17 at 16:00; Stop 01/10/17 at 16 :01; Status DC Dextrose (D50w (Syr) Inj) 25 ml ONCE ONCE IV PUSH Last administered on 16:10; Start 01/10/17 at 16:00; Stop 01/10/17 at 16:01; Status DC Calcium Gluconate (Calcium Gluconate Inj) 1 gm ONCE ONCE IV PUSH Last administered on 01/10/17 16:09; Start 01/10/17 at 16:00; Stop 01/10/17 at 16 :01; Status DC Sodium Polystyrene Sulfonate (Kayexalate Liq) 15 gm ONCE ONCE PO ; Start 01/10 at 16:00; Stop 01/10/17 at 16:01; Status DC Sodium Bicarbonate 200 meq/Sodium Chloride 1,200 ml @ 100 mls/hr Q12H IV ; Start 01/10/17 at 16:15; Stop 01/11/17 at 14:47; Status DC Sodium Chloride 1,000 ml @ 999 mls/hr BOLUS ONCE IV Last administered on 16:43; Start 01/10/17 at 16:15; Stop 01/10/17 at 17:15; Status DC Sodium Chloride 1,000 ml @ 999 mls/hr BOLUS ONCE IV Last administered on 16:44; Start 01/10/17 at 16:15; Stop 01/10/17 at 17:15; Status DC Sodium Bicarbonate (Sodium Bicarbonate 8.4% Inj) 50 meq STK-MED ONCE .ROUTE ; Start 01/10/17 at 16:23; Stop 01/10/17 at 16:43; Status DC Sodium Bicarbonate 200 meq/Sterile Water 1,050 ml @ 150 mls/hr Q7H IV Last administered on 01/11/17 08:22; Start 01/10/17 at 16:45; Stop 01/11/17 at 14 :47; Status DC Sodium Chloride 1,000 ml @ 999 mls/hr BOLUS ONCE IV Last administered on 17:23; Start 01/10/17 at 17:00; Stop 01/10/17 at 18:00; Status DC Sodium Chloride 1,000 ml @ 999 mls/hr BOLUS ONCE IV Last administered on 17:23; Start 01/10/17 at 17:00; Stop 01/10/17 at 18:00; Status DC Sodium Chloride 1,000 ml @ 999 mls/hr BOLUS ONCE IV Last administered on 17:40; Start 01/10/17 at 17:00; Stop 01/10/17 at 18:00; Status DC Acetaminophen (Tylenol) 650 mg Q6H PRN PO PAIN SCALE 1 TO 4 Last administered on 01/26/17 08:20; Start 01/10/17 at 17:00 Albuterol Sulfate (Proair Hfa Inh) 2 puff Q6H PRN INH SHORTNESS OF BREATH; Start 01/10/17 at 17:00 Atorvastatin Calcium (Lipitor) 80 mg HS PO Last administered on 01/29/17 19:49 ; Start 01/10/17 at 21:00 Nitroglycerin (Nitrostat Sl) 0.4 mg Q3H PRN SL CHEST PAIN; Start 01/10/17 at 17:00 Aspirin (Ecotrin Ec) 81 mg DAILY PO Last administered on 01/30/17 08:38; Start 01/10/17 at 17:00 Heparin Sodium/ Dextrose 250 ml @ 10 mls/hr TITRATE PRN IV Coagulation management Last administered on 01/11/17 01:03; Start 01/10/17 at 17:00; Stop 01/11/17 at 17:15; Status DC Insulin Aspart (NovoLOG SUPPLEMENTAL SCALE) 1 Q4H SQ Last administered on 04:39; Start 01/10/17 at 17:00; Stop 01/23/17 at 08:38; Status DC Sodium Chloride (NS Flush) 2 ml UNSCH PRN IV FLUSH FLUSH AFTER USING IV ACCESS ; Start 01/10/17 at 17:15; Stop 01/11/17 at 14:50; Status DC Sodium Chloride (NS Flush) 2 ml BID IV FLUSH Last administered on 01/30/17 08 :38; Start 01/10/17 at 21:00 Pantoprazole Sodium (Protonix) 40 mg DAILY PO ; Start 01/11/17 at 09:00; Stop 01/11/17 at 17:15; Status DC Miscellaneous Information 1 Q361D XX ; Start 01/10/17 at 17:15 Chlorhexidine Gluconate (Chlorhexidine 2% Cloth) 3 pack Taper DAILY@04 TOP Last administered on 01/29/17 04:00; Start 01/11/17 at 04:00; Stop 01/07/18 at 03:59 Chlorhexidine Gluconate (Chlorhexidine 2% Cloth) 3 pack UNSCH PRN TOP HYGIENIC CARE; Start 01/10/17 at 17:15 Senna/Docusate Sodium (Afia-Colace) 1 tab BID PO Last administered on 08:38; Start 01/10/17 at 21:00 Magnesium Hydroxide (Milk Of Magnesia Liq) 30 ml Q12H PRN PO Mild constipation ; Start 01/10/17 at 17:15 Sennosides (Senokot) 17.2 mg Q12H PRN PO Moderate constipation; Start at 17:15 Bisacodyl (Dulcolax Supp) 10 mg DAILY PRN RECTAL SEVERE CONSITIPATION; Start 01/10/17 at 17:15 Lactulose (Lactulose Liq) 30 ml DAILY PRN PO SEVERE CONSITIPATION; Start 01/10 at 17:15 Sodium Bicarbonate 0 ml @ As Directed STK-MED ONCE .ROUTE ; Start 01/10/17 at 17:23; Stop 01/10/17 at 17:24; Status DC Sodium Bicarbonate (Sodium Bicarbonate 8.4% Inj) 50 meq STK-MED ONCE .ROUTE ; Start 01/10/17 at 17:23; Stop 01/10/17 at 17:24; Status DC Sodium Chloride 1,000 ml @ 0 mls/hr Q0M PRN OTHER For Prime & Rinse Back Last administered on 01/10/17 22:05; Start 01/10/17 at 17:47 Heparin Sodium (Porcine) (Heparin Inj) 8,000 units UNSCH PRN IV FLUSH WITH DIALYSIS; Start 01/10/17 at 18:00; Stop 01/24/17 at 11:56; Status DC Sodium Chloride 1,000 ml @ 200 mls/hr Q5H PRN IV WITH DIALYSIS; Start at 17:47 Sodium Chloride 1,000 ml @ 0 mls/hr Q0M PRN OTHER WITH DIALYSIS; Start at 17:47 Mannitol (Mannitol Inj) 12.5 gm UNSCH PRN IV WITH DIALYSIS; Start 01/10/17 at 18:00 Albumin Human 100 ml @ 60 mls/hr UNSCH PRN IV WITH DIALYSIS; Start 01/10/17 at 18:00 Sodium Chloride (NS Flush) 5 ml UNSCH PRN IV FLUSH WITH DIALYSIS; Start at 18:00 Heparin Sodium (Porcine) (Heparin Inj) UNSCH PRN .XX WITH DIALYSIS; Start at 18:00 Gentamicin Sulfate (Gentamicin (Dialysis) Inj) 20 mg UNSCH PRN OTHER WITH DIALYSIS Last administered on 01/10/17 22:03; Start 01/10/17 at 18:00 Ondansetron HCl (Zofran Inj) 4 mg UNSCH PRN IV PUSH WITH DIALYSIS Last administered on 01/18/17 08:51; Start 01/10/17 at 18:00 Acetaminophen (Tylenol) 650 mg UNSCH PRN PO for headach, pain, temp > 101F Last administered on 01/30/17 01:51; Start 01/10/17 at 18:00 Diphenhydramine HCl (Benadryl) 25 mg UNSCH PRN PO for hives/itching/ anaphylaxis Last administered on 01/29/17 03:16; Start 01/10/17 at 18:00 Nitroglycerin (Nitrostat Sl) 0.4 mg UNSCH PRN SL CHEST PAIN; Start 01/10/17 at 18:00 Clonidine (Catapres) 0.1 mg UNSCH PRN PO for BP > 180/100 X 2 readings Last administered on 01/15/17 02:07; Start 01/10/17 at 18:00 Gelatin (Gelfoam 12 Mm/7 Mm Top) 1 foam UNSCH PRN TOP SEE LABEL COMMENTS; Start 01/10/17 at 18:00 Dextrose (D50w (Vial) Inj) 50 ml UNSCH PRN IV PUSH HYPOGLYCEMIA-SEE COMMENTS Last administered on 01/10/17 18:05; Start 01/10/17 at 22:30; Stop 01/24/17 at 16:15; Status DC Glucagon (Glucagon Inj) 1 mg UNSCH PRN OTHER HYPOGLYCEMIA-SEE COMMENTS; Start 01/10/17 at 22:30; Stop 01/24/17 at 16:15; Status DC Dexmedetomidine HCl 200 mcg/ Sodium Chloride 52 ml @ 5.46 mls/hr TITRATE PRN IV SEDATION Last administered on 01/12/17 14:53; Start 01/11/17 at 00:00 Metoprolol Tartrate (Lopressor) 25 mg Q12HR PO Last administered on 01/15/17 08:48; Start 01/11/17 at 21:00; Stop 01/15/17 at 11:09; Status DC Metoprolol Tartrate (Lopressor Inj) 5 mg Q1HR PRN IV PUSH RAPID HEART RATE Last administered on 01/14/17 21:16; Start 01/11/17 at 11:15; Stop 01/15/17 at 11:09; Status DC Diltiazem HCl 125 mg/Sodium Chloride 125 ml @ 5 mls/hr TITRATE PRN IV Tachycardia Last administered on 01/15/17 10:45; Start 01/11/17 at 17:30; Stop 01/15/17 at 11:11; Status DC Sodium Chloride 1,000 ml @ 84 mls/hr [id number] IV Last administered on 01:04; Start 01/12/17 at 13:00; Stop 01/13/17 at 12:51; Status DC Haloperidol Lactate (Haldol Inj) 5 mg Q4H PRN IV agitation Last administered on 01/29/17 03:15; Start 01/12/17 at 17:00 Diltiazem HCl (Cardizem) 60 mg Q6HR PO Last administered on 01/15/17 07:03; Start 01/13/17 at 06:00; Stop 01/15/17 at 11:09; Status DC Sodium Chloride 38.5 meq/Sterile Water 1,009.625 ml @ 84 mls/hr Q12H2M IV Last administered on 01/22/17 22:46; Start 01/13/17 at 15:00; Stop 01/23/17 at 11: 57; Status DC Metoclopramide HCl (Reglan Inj) 5 mg Q8H PRN IV PUSH NAUSEA OR VOMITING Last administered on 01/14/17 22:57; Start 01/14/17 at 11:15; Stop 01/15/17 at 08 :56; Status DC Potassium Chloride 100 ml @ 50 mls/hr Q2H IV Last administered on 01/14/17 15:19; Start 01/14/17 at 12:00; Stop 01/14/17 at 15:59; Status DC Hydralazine HCl (Apresoline Inj) 20 mg ONCE ONCE IV PUSH Last administered on 01/14/17 22:58; Start 01/14/17 at 23:00; Stop 01/14/17 at 23:01; Status DC Metoclopramide HCl (Reglan Inj) 5 mg Q8H IV PUSH Last administered on 01:51; Start 01/15/17 at 10:00 Hydralazine HCl (Apresoline Inj) 10 mg Q4H PRN IV PUSH SYS BP GREATER THAN 160 MMHG; Start 01/15/17 at 10:00 Potassium Chloride 100 ml @ 100 mls/hr Q1H IV ; Start 01/15/17 at 10:00; Stop 01/15/17 at 10:00; Status DC Potassium Chloride 100 ml @ 50 mls/hr Q2H IV Last administered on 01/16/17 06:11; Start 01/15/17 at 10:00; Status Future Hold Diltiazem HCl 125 mg/Sodium Chloride 125 ml @ 15 mls/hr TITRATE PRN IV Tachycardia Last administered on 01/19/17 00:59; Start 01/15/17 at 17:30; Stop 01/19/17 at 08:01; Status DC Metoprolol Tartrate (Lopressor Inj) 5 mg Q4H IV PUSH Last administered on 01/16 08:48; Start 01/15/17 at 12:00; Stop 01/16/17 at 09:17; Status DC Heparin Sodium (Porcine) (Heparin Inj) 4,000 units NOW STAT IV PUSH ; Start at 11:11; Stop 01/15/17 at 11:12; Status Cancel Heparin Sodium (Porcine) (Heparin Inj) 5,000 units UNSCH PRN IV PUSH APTT LESS THAN 25; Start 01/15/17 at 17:15; Stop 01/24/17 at 11:56; Status DC Heparin Sodium (Porcine) (Heparin Inj) 2,500 units UNSCH PRN IV PUSH APTT 25 TO 39 Last administered on 01/16/17 06:17; Start 01/15/17 at 17:15; Stop 01/24/17 at 11:56; Status DC Heparin Sodium/ Dextrose 250 ml @ 10 mls/hr TITRATE PRN IV Coagulation management; Start 01/15/17 at 11:15; Status Cancel Heparin Sodium (Porcine) (Heparin Inj) 4,000 units NOW STAT IV PUSH Last administered on 01/15/17 15:45; Start 01/15/17 at 15:45; Stop 01/15/17 at 15 :51; Status DC Heparin Sodium/ Dextrose 250 ml @ 10 mls/hr TITRATE PRN IV Coagulation management Last administered on 01/20/17 05:11; Start 01/15/17 at 16:00; Stop 01/20/17 at 08:22; Status DC Clonidine (Catapres-Tts 0.3 Mg Patch.7d) 1 patch Q7D T-DERMAL Last administered on 01/16/17 14:14; Start 01/16/17 at 10:00 Metoprolol Tartrate (Lopressor Inj) 5 mg Q3H IV PUSH Last administered on 01/19 02:31; Start 01/16/17 at 11:00; Stop 01/19/17 at 08:01; Status DC Miscellaneous Information 1 Q7D T-DERMAL Last administered on 01/16/17 10:00 ; Start 01/16/17 at 10:00 Guaifenesin (Mucinex Er) 600 mg BID PO Last administered on 01/30/17 08:39; Start 01/16/17 at 21:00 Magnesium Sulfate/ Dextrose 100 ml @ 100 mls/hr ONCE ONCE IV Last administered on 01/16/17 14:14; Start 01/16/17 at 12:00; Stop 01/16/17 at 12 :59; Status DC Magnesium Sulfate/ Dextrose 100 ml @ 100 mls/hr Q1H IV Last administered on 11:45; Start 01/17/17 at 10:45; Stop 01/17/17 at 12:44; Status DC Calcium Gluconate 1 gm/Sodium Chloride 110 ml @ 110 mls/hr ONCE ONCE IV Last administered on 01/17/17 12:00; Start 01/17/17 at 12:00; Stop 01/17/17 at 12 :59; Status DC Calcium Carbonate (Oscal) 500 mg TID PO Last administered on 01/30/17 08:39; Start 01/17/17 at 13:00 Potassium Phosphate (K-Phos) 500 mg Q12HR PO Last administered on 01/30/17 08 :38; Start 01/17/17 at 14:00 Quetiapine Fumarate (SEROquel) 25 mg BID PO Last administered on 01/30/17 08: 38; Start 01/17/17 at 21:00 Sodium Chloride 500 ml @ 500 mls/hr BOLUS ONCE IV Last administered on 09:00; Start 01/18/17 at 09:00; Stop 01/18/17 at 09:59; Status DC Magnesium Sulfate/ Dextrose 100 ml @ 100 mls/hr ONCE ONCE IV Last administered on 01/18/17 12:48; Start 01/18/17 at 12:30; Stop 01/18/17 at 13 :29; Status DC Calcium Gluconate 1 gm/Dextrose 110 ml @ 110 mls/hr ONCE ONCE IV Last administered on 01/18/17 12:30; Start 01/18/17 at 12:30; Stop 01/18/17 at 13 :29; Status DC Potassium Chloride (KCl) 20 meq ONCE ONCE PO Last administered on 01/18/17 14:00; Start 01/18/17 at 14:00; Stop 01/18/17 at 14:01; Status DC Metoprolol Tartrate (Lopressor) 50 mg Q8HR PO Last administered on 01/29/17 06 :27; Start 01/19/17 at 14:00; Stop 01/29/17 at 13:38; Status DC Diltiazem HCl (Cardizem) 90 mg TID PO Last administered on 01/19/17 18:42; Start 01/19/17 at 09:00; Stop 01/20/17 at 08:22; Status DC Warfarin Sodium (Coumadin) 5 mg DAILY@1600 PO Last administered on 01/19/17 15:43; Start 01/19/17 at 16:00; Stop 01/20/17 at 08:22; Status DC Diltiazem HCl (Cardizem Cd) 300 mg DAILY PO Last administered on 01/22/17 09: 12; Start 01/20/17 at 09:00; Stop 01/23/17 at 11:56; Status DC Labetalol HCl (Trandate Inj) 10 mg Q4H PRN IV PUSH SBP>160, DBP>90 Last administered on 01/20/17 17:27; Start 01/20/17 at 08:30 Magnesium Sulfate/ Dextrose 100 ml @ 100 mls/hr ONCE ONCE IV Last administered on 01/20/17 13:26; Start 01/20/17 at 12:00; Stop 01/20/17 at 12 :59; Status DC Potassium Chloride 100 ml @ 50 mls/hr BOLUS ONCE IV Last administered on 13:27; Start 01/20/17 at 13:00; Stop 01/20/17 at 14:59; Status DC Magnesium Sulfate/ Dextrose 100 ml @ 100 mls/hr ONCE ONCE IV Last administered on 01/21/17 17:48; Start 01/21/17 at 17:15; Stop 01/21/17 at 18:14 ; Status DC Cefepime HCl 1000 mg/Sodium Chloride 100 ml @ 200 mls/hr Q12H IV Last administered on 01/24/17 19:39; Start 01/22/17 at 09:00; Stop 01/24/17 at 20:07 ; Status DC Azithromycin 250 mg/Sodium Chloride 250 ml @ 250 mls/hr Q24H IV Last administered on 01/23/17 11:20; Start 01/22/17 at 10:00; Stop 01/23/17 at 13:29 ; Status DC Pharmacy Profile Note 0 ml @ 0 mls/hr UNSCH OTHER ; Start 01/23/17 at 05:45; Stop 01/23/17 at 10:20; Status DC Vancomycin HCl 1250 mg/Sodium Chloride 262.5 ml @ 250 mls/hr NOW ONCE IV Last administered on 01/23/17 06:39; Start 01/23/17 at 06:00; Stop 01/23/17 at 07:02; Status DC Insulin Detemir (Levemir Inj) 5 units Q12HR SQ Last administered on 01/30/17 08:40; Start 01/23/17 at 09:00 Vancomycin HCl 1250 mg/Sodium Chloride 262.5 ml @ 262.5 mls/ hr ONCE ONCE IV ; Start 01/23/17 at 09:15; Stop 01/23/17 at 10:19; Status DC Pharmacy Profile Note 0 ml @ 0 mls/hr UNSCH OTHER ; Start 01/23/17 at 10:15; Stop 01/24/17 at 20:07; Status DC Diltiazem HCl 125 mg/Sodium Chloride 125 ml @ 5 mls/hr TITRATE PRN IV Tachycardia Last administered on 01/30/17 08:57; Start 01/23/17 at 12:00 Sodium Chloride 1,000 ml @ 84 mls/hr [id number] IV Last administered on 23:45; Start 01/23/17 at 12:00 Magnesium Sulfate/ Dextrose 100 ml @ 100 mls/hr ONCE ONCE IV Last administered on 01/23/17 13:12; Start 01/23/17 at 13:00; Stop 01/23/17 at 13:59 ; Status DC Calcium Gluconate (Calcium Gluconate Inj) 1 gm ONCE ONCE IV PUSH ; Start at 12:00; Stop 01/23/17 at 12:01; Status UNV Calcium Gluconate 1 gm/Sodium Chloride 110 ml @ 110 mls/hr ONCE ONCE IV Last administered on 01/23/17 14:14; Start 01/23/17 at 14:00; Stop 01/23/17 at 14:59 ; Status DC Hydromorphone HCl (Dilaudid Pf Inj) 0.5 mg Q4HR PRN IV PUSH SEE LABEL COMMENTS Last administered on 01/29/17 03:18; Start 01/23/17 at 14:45 Hydromorphone HCl (Dilaudid Pf Inj) 0.75 mg Q4HR PRN IV PUSH SEE LABEL COMMENTS Last administered on 01/28/17 19:59; Start 01/23/17 at 14:45 Heparin Sodium/ Dextrose 250 ml @ 5 mls/hr CONTINUOUS IV ; Start 01/24/17 at 12: 00; Stop 01/24/17 at 13:29; Status DC Heparin Sodium/ Dextrose 250 ml @ 18 mls/hr TITRATE PRN IV Coagulation Management Last administered on 01/30/17 00:28; Start 01/24/17 at 12:00 Dextrose (D50w (Vial) Inj) 25 ml UNSCH PRN IV PUSH HYPOGLYCEMIA-SEE COMMENTS; Start 01/24/17 at 16:00 Insulin Human Regular (NovoLIN R SUPPLEMENTAL SCALE) 1 Q6HR SQ Last administered on 01/30/17 06:00; Start 01/24/17 at 18:00 Cefazolin Sodium/ Dextrose 50 ml @ 150 mls/hr Q8H IV Last administered on 01/29 13:05; Start 01/24/17 at 20:00; Stop 01/29/17 at 13:26; Status DC Metoprolol Tartrate (Lopressor Inj) 5 mg ONCE ONCE IV PUSH Last administered on 01/26/17 06:12; Start 01/26/17 at 06:00; Stop 01/26/17 at 06:01; Status DC Calcium Gluconate 1 gm/Dextrose 110 ml @ 110 mls/hr ONCE ONCE IV Last administered on 01/28/17 11:35; Start 01/28/17 at 11:30; Stop 01/28/17 at 12:29 ; Status DC Rifampin (Rifampin) 300 mg Q12H PO Last administered on 01/30/17 01:51; Start 01/28/17 at 14:00 Calcium Gluconate 1 gm/Dextrose 110 ml @ 110 mls/hr ONCE ONCE IV Last administered on 01/29/17 13:04; Start 01/29/17 at 10:30; Stop 01/29/17 at 11:29 ; Status DC Cefazolin Sodium/ Dextrose 50 ml @ 150 mls/hr Q12H IV Last administered on 23:45; Start 01/30/17 at 00:00 Metoprolol Tartrate (Lopressor) 100 mg BID PO Last administered on 01/30/17 08:39; Start 01/29/17 at 21:00 Calcium Gluconate 1 gm/Dextrose 110 ml @ 110 mls/hr ONCE ONCE IV Last administered on 01/30/17 08:38; Start 01/30/17 at 08:00; Stop 01/30/17 at 08 :59; Status DC A/P Problem List: (1) Acute on chronic kidney failure ICD Code: N17.9 - Acute kidney failure, unspecified; N18.9 - Chronic kidney disease, unspecified (2) Combined metabolic and respiratory acidosis (3) Acute metabolic encephalopathy ICD Code: G93.41 - Metabolic encephalopathy (4) NSTEMI (non-ST elevated myocardial infarction) ICD Code: I21.4 - Non-ST elevation (NSTEMI) myocardial infarction (5) Hyperkalemia ICD Code: E87.5 - Hyperkalemia Status: Acute (6) Metabolic acidemia ICD Code: E87.2 - Acidosis (7) History of CVA (cerebrovascular accident) ICD Code: Z86.73 - Personal history of transient ischemic attack (TIA), and cerebral infarction without residual deficits Status: Chronic (8) Diabetes ICD Code: E11.9 - Type 2 diabetes mellitus without complications Status: Acute (9) HTN (hypertension) ICD Code: I10 - Essential (primary) hypertension Status: Chronic Assessment and Plan A/P 1. Acute Metabolic Encephalopathy/Agitated Delirium, History of Previous CVA with left hemiparesis, awake and alert today. 2. Severe combined Metabolic and respiratory acidosis resolved Past Tobacco dependence continue Bronchodilator, Mucolytic and incentive spirometry 3. Atrial Flutter/Fibrillation with RVR/Elevated Troponin, History of CAD and Hypertension- on cardizem drip and po metoprolol - will add po cardizem and continue to monitor the HR. equivocal Troponin elevation, recommended by Cardiology to stop Warfarin due to non compliance. but developed left Upper extremity DVT and was recommended to start Heparin IV. 4. DVT of the left arm on heparin 5. DM II/Dyslipidemia continue sliding scale. blood sugar stable. 6. Sepsis with MSSA and recurrent fever ( tamx 101)- had vascular cath placed 01/10 and removed 01/15, basilar opacities on lungs likely Pneumonia Still positive Blood cultures,on Cefazolin and Rifampin. LIGIA negative for endocarditis. follow the repeated the blood cultures to ensure the clearance. ID following. 7. Elevated Troponin but no angina like symptoms, normal left ventricular function by Echo recent non ischemic nuclear stress. 8. Delirium due to another medical condition, due to lack of cooperation inability to express a rational choice and inability to verbalize reason of hospitalization and nature of her medical illnesses the patient doesn't have decision making capacity to refuse medications or to leave AMA. 9. Acute kidney Injury on chronic kidney disease, slowly improving, Nephrology specialist following. had one single HD and improved. will monitor the renal function. Discussed with RN. PROPH: - Bilateral lower extremity SCDs. Heparin IV . Problem Qualifiers (1) Diabetes: (2) HTN (hypertension): Qualified Codes: I10 - Essential (primary) hypertension Josesito Brown MD Jan 30, 2017 11:00
[2017-01-30] MEDS: ceFAZolin 2 GM PREMIX 50 ML IV SCH (11:46)
[2017-01-30] MEDS: cloNIDine HCL 0.3 MG/24 HR PATCH T-DERMAL SCH (11:46)
[2017-01-30] MEDS: SODIUM CHLOR 0.45% 1000 ML INJ 1,000 ML IV SCH (11:55)
[2017-01-30] MEDS: DILTIAZEM HCL 30 MG TAB PO SCH ×2 (12:00→18:00)
--- NOTE | 2017-01-30 12:38 | HHI.NPPN ---
Subjective History of Present Illness 56-year-old male with past medical history of chronic kidney disease, diabetes mellitus, history of cerebrovascular accident with hemiparesis, ischemic heart disease, hypertension, atrial fibrillation who came to the hospital with generalized weakness and dizziness. I was called to see the patient because of very high BUN and creatinine, metabolic acidosis and hyperkalemia. The patient has known history of chronic kidney disease and his baseline creatinine seems to me in the range of 1.6 to 2.2. Additional Remarks Patient is more awake , not in distress. Review of Systems General Constitutional: Fatigue Cardiovascular Cardiac: RODRÍGUEZ Objective Data Data Vital Signs Date Time Temp Pulse Resp B/P (MAP) Pulse Ox O2 Delivery O2 Flow Rate FiO2 01/30/17 10:00 127 01/30/17 08:57 130 120/62 01/30/17 08:00 98.8 125 30 120/62 (81) 94 01/30/17 08:00 125 01/30/17 06:45 112 120/62 01/30/17 06:00 122 01/30/17 04:00 114 01/30/17 04:00 98.2 114 48 122/64 (83) 99 01/30/17 02:00 118 01/30/17 00:26 83 128/67 01/30/17 00:00 101.1 97 25 128/67 (87) 97 01/30/17 00:00 97 128/67 01/30/17 00:00 97 01/29/17 22:00 81 01/29/17 20:00 121 01/29/17 20:00 100.6 121 21 136/72 (93) 94 01/29/17 19:00 145 158/72 01/29/17 18:00 121 01/29/17 16:04 131 136/64 01/29/17 16:00 98.7 127 16 136/64 (88) 99 01/29/17 16:00 127 01/29/17 14:00 132 -: 01/28/17 0500 01/30/17 0458 Physical Exam General Appearance: No Acute Distress, Comfortable, Anxious Throat Throat Exam: Oral Mucosa [place] & Moist Pulmonary Resp Exam: Breath Sounds Equal, No Distress, Rhonchi, Decreased Bases, Diminished Breath Sounds Cardiology CV Exam: Arrhythmia Gastrointestinal/Abdomen GI Exam: Soft, Non-Tender, Bowel Sounds Present Extremeties Extremities Exam: Trace Edema Neurologic Neuro Exam: Alert, Awake Assessment/Plan Assessment Summary: ABNER/Acute Renal Failure, CKD Stage III Electrolyte Assessment: Hyperkalemia, Hypocalcemia, Metabolic Acidosis Problem List: (1) History of CVA (cerebrovascular accident) ICD Codes: Z86.73 - Personal history of transient ischemic attack (TIA), and cerebral infarction without residual deficits Status: Chronic (2) HTN (hypertension) ICD Codes: I10 - Essential (primary) hypertension Status: Chronic (3) Diabetes ICD Codes: E11.9 - Type 2 diabetes mellitus without complications Status: Acute (4) Metabolic acidemia ICD Codes: E87.2 - Acidosis (5) Hyperkalemia ICD Codes: E87.5 - Hyperkalemia Status: Acute (6) Acute renal failure ICD Codes: N17.9 - Acute kidney failure, unspecified Status: Acute Plan Patient has chronic kidney disease and develop ABNER. Also had metabolic acidosis and Hyperkalemia. Patient has HD 1 session then ARF resolved ATN resolving 1/2 NS at 84 cc/hr Creatinine 2.8 higher poor nutrition contributes as well as Afib Cardiology LIGIA negative MSSA on Cefazolin replace Calcium follow BMP Problem Qualifiers (1) HTN (hypertension): Qualified Codes: I10 - Essential (primary) hypertension (2) Diabetes: (3) Acute renal failure: Qualified Codes: N17.9 - Acute kidney failure, unspecified Parth Ruiz MD Jan 30, 2017 12:38
[2017-01-30 14:04] LABS: HEMATOCRIT 25.2 % (39.0-51.0); MEAN CELL VOLUME 86.7 FL (80.0-100.0); MEAN CORPUSCULAR HEMOGLOBIN 28.7 PG (27.0-34.0); MEAN CORPUSCULAR HGB CONC 33.1 % (32.0-36.0); PLATELET COUNT 306 TH/MM3 (150-450); RED CELL DISTRIBUTION WIDTH 14.4 % (11.6-17.2); REVIEW FLAG FINAL; WHITE BLOOD COUNT 19.7 TH/MM3 (4.0-11.0)
[2017-01-30 14:19] LABS: APTT (PATIENT) 64.8 SEC (24.3-30.1)
--- NOTE | 2017-01-30 14:59 | HHI.IDPN ---
Subjective Subjective Remarks Is a 56-year-old male with past medical history significant for chronic kidney disease baseline creatinine 1.8-2, type 2 diabetes, history of CVA with residual left patient is a 56-year-old male, admitted to the hospital complaining of generalized weakness and dizziness for about 1 week. He apparently lives in a residential and walks with a cane, and has left-sided weakness. There is mention that he had fallen a couple times due to the weakness. There is also mention that he was not having enough by mouth intake, as well as some diarrhea. He denies any abdominal pain, any nausea or vomiting. On initial presentation patient was found to be in atrial flutter with RVR. He also has significant acidosis, and has an elevated potassium and creatinine. Patient was seen by cardiology, and his echo showed normal EF. Patient also was seen by renal, and underwent emergency hemodialysis. His hemodynamics stabilized, and the hemodialysis has been stopped. He has good urine output. Patient has been refusing a lot of his treatment. His had some problem with nausea and vomiting. He has had on and off fevers which are low- grade, however in the last probably 4 days, his fevers have been more persistent. He is complaining of pain on the right side of his trunk. There is also mention that his left upper extremity is swollen. Patient has no central line. He has a condom catheter. Chest x-ray has shown a similar opacities bilaterally. Patient was started on antibiotics, and currently on AZT mycin, cefepime, and vancomycin. Infectious disease consultation has been requested to evaluate the patient. Notes reviewed Temps ok LIGIA negative for endocarditis BC still (+) 01/22-01/28 Has thrombus in LUE as well as in his LIJ, and C BP ok Monitor shows atrial fib Antibiotics Ancef Rifampin Lines PIV Past Medical History Chronic kidney disease Type 2 diabetes Hypertension Dyslipidemia Previous stroke, with residual L weakness Atrial fibrillation/flutter CAD History of PUD Past Surgical History Throat and arm surgery Allergies: Coded Allergies: No Known Allergies (Unverified , 01/07/17) Objective . Vital Signs Date Time Temp Pulse Resp B/P (MAP) Pulse Ox O2 Delivery O2 Flow Rate FiO2 01/30/17 14:00 142 01/30/17 12:00 98.4 137 49 150/90 (110) 94 01/30/17 12:00 138 11/10/17 10:00 127 01/30/17 08:57 130 120/62 01/30/17 08:00 98.8 125 30 120/62 (81) 94 01/30/17 08:00 125 01/30/17 06:45 112 120/62 01/30/17 06:00 122 01/30/17 04:00 114 01/30/17 04:00 98.2 114 48 122/64 (83) 99 01/30/17 02:00 118 01/30/17 00:26 83 128/67 01/30/17 00:00 101.1 97 25 128/67 (87) 97 01/30/17 00:00 97 128/67 01/30/17 00:00 97 01/29/17 22:00 81 01/29/17 20:00 121 01/29/17 20:00 100.6 121 21 136/72 (93) 94 01/29/17 19:00 145 158/72 01/29/17 18:00 121 01/29/17 16:04 131 136/64 01/29/17 16:00 98.7 127 16 136/64 (88) 99 01/29/17 16:00 127 01/30/17 01/30/17 01/31/17 15:00 23:00 07:00 Intake Total 110 ml Balance 110 ml IV Total 110 ml . Laboratory Tests Test 01/30/17 13:25 White Blood Count 19.7 TH/MM3 Red Blood Count 2.90 MIL/MM3 Hemoglobin 8.3 GM/DL Hematocrit 25.2 % Mean Corpuscular Volume 86.7 FL Mean Corpuscular Hemoglobin 28.7 PG Mean Corpuscular Hemoglobin Concent 33.1 % Red Cell Distribution Width 14.4 % Platelet Count 306 TH/MM3 Mean Platelet Volume 8.6 FL Laboratory Tests Test 01/29/17 04:33 01/30/17 04:58 Blood Urea Nitrogen 28 MG/DL 33 MG/DL Creatinine 2.65 MG/DL 2.86 MG/DL Random Glucose 123 MG/DL 141 MG/DL Calcium Level 7.7 MG/DL 7.1 MG/DL Phosphorus Level 3.4 MG/DL Magnesium Level 1.7 MG/DL Sodium Level 134 MEQ/L 134 MEQ/L Potassium Level 4.2 MEQ/L 3.9 MEQ/L Chloride Level 103 MEQ/L 104 MEQ/L Carbon Dioxide Level 21.8 MEQ/L 22.5 MEQ/L Anion Gap 9 MEQ/L 8 MEQ/L Estimat Glomerular Filtration Rate 30 ML/MIN 28 ML/MIN Total Protein 7.0 GM/DL Protein Corrected Calcium 7.2 MG/DL Microbiology Date/Time Source Procedure Growth Status 01/29/17 04:33 Blood Peripheral Aerobic Blood Culture - Preliminary NO GROWTH IN 1 DAY Resulted 01/29/17 04:33 Blood Peripheral Anaerobic Blood Culture - Preliminary NO GROWTH IN 1 DAY Resulted 01/28/17 15:00 Blood Peripheral Aerobic Blood Culture - Preliminary Gram Positive Cocci Resulted 01/28/17 15:00 Blood Peripheral Anaerobic Blood Culture - Preliminary NO GROWTH IN 2 DAYS Resulted Imaging Last Impressions Abdomen X-Ray 01/25/17 0000 Signed Impressions: Service Date/Time: Wednesday, January 25, 2017 14:33 - CONCLUSION: Nonspecific, nonobstructive bowel gas pattern. Scot Sung MD Upper Extremity Ultrasound 01/23/17 0000 Signed Impressions: Service Date/Time: Monday, January 23, 2017 17:45 - CONCLUSION: Thrombus identified within the internal jugular, subclavian, and the basilic veins. Jeyson Luciano MD Chest X-Ray 01/21/17 0000 Signed Impressions: Service Date/Time: Saturday, January 21, 2017 22:42 - CONCLUSION: New hazy opacity in both lungs with concern for ovarian edema and congestive heart failure. Jose Espinal MD Head CT 01/10/17 1257 Signed Impressions: Service Date/Time: Tuesday, January 10, 2017 13:32 - CONCLUSION: No acute disease. Jermaine Malone Jr., MD Renal Ultrasound 01/10/17 0000 Signed Impressions: Service Date/Time: Tuesday, January 10, 2017 17:01 - CONCLUSION: Normal examination. Jermaine Malone Jr., MD Physical Exam GENERAL: Awakens easily and alert, not in respiratory distress. SKIN: Warm and dry. No generalized rash, no ecchymoses and no evidence of embolic lesions. HEAD: Atraumatic. Normocephalic. No temporal wasting, or tenderness. EYES: [place] conjunctiva. No petechia or hemorrhage. Pupils equal, round and reactive to light. Extraocular movements full and intact. No scleral icterus. No injection or drainage. EARS, NOSE AND THROAT: Nose without bleeding or purulent nasal discharge. No sinus tenderness. Moist mucosa NECK: Trachea midline. Supple and not tender, no meningeal signs. Previous vascath site looks ok, dry CARDIOVASCULAR: Tachycardic, irregular rate and rhythm. No murmurs, rubs or gallops heard RESPIRATORY: Clear to auscultation. Breath sounds equal bilaterally. No rales , wheezing or rhonchi, decreased at the bases ABDOMEN: Soft, Not tender, not distended. No guarding or rebound. Bowel sounds present and normoactive. No organomegaly. EXTREMITIES: mild BLE edema, no cyanosis. LUE is swollen : Condom cath in place NEUROLOGICAL: Awake and alert. L side plegic PSYCHIATRIC: calm, cooperative this morning LINE: No evidence of infection Assessment & Plan Remarks IMPRESSION Sepsis with MSSA - had vascath placed 01/10, removed 01/15 - has DVT LUE including LIJ and LSC, and previously had vascath and suspicious for infected thrombophlebitis - has basilar opacities, ?fluid; not coughing or congested, less likely PNA - BC still (+) - has flank pain, ?another focus/seeding Renal failure, creatinine has improved and has good UO Previous CVA with left sided weakness Atrial fib with RVR Leukocytosis, persistent PLAN Change cefazolin to Oxacillin Continue Rifampin Repeat BC to document clearing He will need 6 weeks IV Abx from date of last (+) BC Labs while on Abx: CBC, creat, CBC Follow CBC Monitor progress Kimi Quintana MD Jan 30, 2017 14:59
[2017-01-30] MEDS ORDERED: OXACILLIN INJ 2 GM in SODIUM CHLORIDE 0.9% INJ 100 ML IV SCH (15:00)
[2017-01-30] MEDS: OXACILLIN INJ 2 GM in SODIUM CHLORIDE 0.9% INJ 100 ML IV SCH ×2 (16:23→21:59)
[2017-01-30] MEDS: ATORVASTATIN 80 MG TAB PO SCH (22:00)
[2017-01-31] VITALS (12 sets, daily range): BP systolic 109–139; BP diastolic 68–83; PULSE 76–88; RESP 18–56; TEMP 98.2–99.3; O2SAT 90–100
[2017-01-31] MEDS: SODIUM CHLOR 0.45% 1000 ML INJ 1,000 ML IV SCH ×2 (01:35→11:46)
[2017-01-31] MEDS: OXACILLIN INJ 2 GM in SODIUM CHLORIDE 0.9% INJ 100 ML IV SCH ×4 (01:36→23:56)
[2017-01-31] MEDS: DILTIAZEM HCL 30 MG TAB PO SCH ×5 (01:36→23:56)
[2017-01-31] MEDS: METOCLOPRAMIDE HCL 10 MG/2 ML VIAL IV PUSH SCH ×3 (01:37→18:40)
[2017-01-31] MEDS: RIFAMPIN 150 MG CAP PO SCH ×2 (01:38→14:00)
[2017-01-31] MEDS: DILTIAZEM 125 MG/NS 100 ML IV PRN ×6 (01:57→11:46)
[2017-01-31] MEDS: CHLORHEXIDINE GLUCONATE 2 % 1 PACK (2 CLOTHS) TOP SCH (04:00)
[2017-01-31] MEDS: INSULIN NovoLIN REGULAR SUPPLEMENTAL SCALE SQ SCH ×4 (05:37→18:00)
[2017-01-31 06:08] LABS: APTT (PATIENT) 66.4 SEC (24.3-30.1)
[2017-01-31 06:11] LABS: POTASSIUM 3.8 MEQ/L (3.5-5.1)
[2017-01-31 06:23] LABS: AUTOMATED NEUTROPHIL # 17.5 TH/MM3 (1.8-7.7); BASOPHIL # 0.1 TH/MM3 (0-0.2); BASOPHIL % 0.3 % (0.0-2.0); EOSINOPHIL # 0.1 TH/MM3 (0-0.4); EOSINOPHIL % 0.6 % (0.0-4.0); HEMATOCRIT 22.2 % (39.0-51.0); HEMO FLAGS DIFF FINAL; LYMPH % 6.6 % (9.0-44.0); LYMPHOCYTE # 1.3 TH/MM3 (1.0-4.8); MEAN CELL VOLUME 86.3 FL (80.0-100.0); MEAN CORPUSCULAR HEMOGLOBIN 29.1 PG (27.0-34.0); MEAN CORPUSCULAR HGB CONC 33.8 % (32.0-36.0); NEUT % 87.5 % (16.0-70.0); PLATELET COUNT 279 TH/MM3 (150-450); RED BLOOD COUNT 2.57 MIL/MM3 (4.50-5.90); RED CELL DISTRIBUTION WIDTH 14.6 % (11.6-17.2)
[2017-01-31 06:35] LABS: CALCIUM-PROTEIN CORRECTED 7.2 MG/DL (8.5-10.1)
[2017-01-31] MEDS ORDERED: CALCIUM GLUCONATE INJ 1 GM in SODIUM CHLORIDE 0.9% INJ 100 ML IV ONE (07:00)
[2017-01-31] MEDS ORDERED: CALCIUM GLUCONATE INJ 1 GM in SODIUM CHLORIDE 0.9% INJ 90 ML IV ONE (07:45)
[2017-01-31] MEDS: POTASSIUM PHOSPHATE MONOBASIC 500 MG TAB PO SCH ×2 (08:42→20:09)
[2017-01-31] MEDS: guaiFENesin E.R. 600 MG TAB PO SCH ×2 (08:42→20:08)
[2017-01-31] MEDS: DOCUSATE SODIUM 50 MG/SENNA 8.6 MG TAB PO SCH ×2 (08:42→20:19)
[2017-01-31] MEDS: QUEtiapine FUMARATE 25 MG TAB PO SCH ×2 (08:43→20:09)
[2017-01-31] MEDS: ASPIRIN EC 81 MG TABEC PO SCH (08:43)
[2017-01-31] MEDS: METOPROLOL TARTRATE 50 MG TAB PO SCH ×2 (08:43→20:08)
[2017-01-31] MEDS: CALCIUM CARBONATE 1.25 GM (CA 500 MG) TAB PO SCH ×3 (08:44→18:39)
[2017-01-31] MEDS: INSULIN DETEMIR 100 UNITS/ML VIAL SQ SCH ×2 (08:52→20:19)
[2017-01-31] MEDS: SODIUM CHLORIDE 0.9% FLUSH 10 ML FLUSH IV FLUSH SCH ×2 (09:00→20:17)
--- NOTE | 2017-01-31 10:47 | HHI.PR ---
Subjective Remarks Patient unable to provide any history today. No distress. No new complaints from the patient. Objective Vital Signs Date Time Temp Pulse Resp B/P (MAP) Pulse Ox O2 Delivery O2 Flow Rate FiO2 01/31/17 06:00 78 01/31/17 04:00 78 01/31/17 04:00 99.3 78 56 125/78 (94) 90 01/31/17 03:15 79 124/75 01/31/17 03:14 79 124/75 01/31/17 02:00 77 01/31/17 00:00 99.2 77 55 109/68 (82) 100 01/31/17 00:00 77 01/30/17 22:00 80 01/30/17 20:00 99.4 108 25 136/93 (107) 97 01/30/17 20:00 108 01/30/17 19:19 94 119/73 01/30/17 19:00 128 119/73 01/30/17 18:00 132 01/30/17 16:24 133 154/85 01/30/17 16:00 98.1 123 28 154/85 (108) 96 01/30/17 16:00 123 01/30/17 14:00 142 01/30/17 12:00 98.4 137 28 150/90 (110) 94 01/30/17 12:00 138 I/O 01/30/17 01/30/17 01/30/17 01/31/17 01/31/17 01/31/17 07:00 15:00 23:00 07:00 15:00 23:00 Intake Total 2493 ml 110 ml 2009 ml 1156 ml Output Total 550 ml 1200 ml 800 ml Balance 1943 ml 110 ml 809 ml 356 ml Intake Oral 480 ml 480 ml 300 ml IV Total 2013 ml 110 ml 1529 ml 856 ml Output Urine Total 550 ml 1200 ml 800 ml # Bowel Movements 1 1 0 Result Diagram: 01/31/17 0535 01/31/17 0535 Procedures Hemodialysis. Objective Remarks GENERAL: NAD, A&Ox0 HEAD: Normocephalic. NECK: Supple, trachea midline. No lymphadenopathy. EYES: No scleral icterus. No injection or drainage. CARDIOVASCULAR: Regular rate and rhythm without murmurs, gallops, or rubs. RESPIRATORY: Breath sounds equal bilaterally. No accessory muscle use. GASTROINTESTINAL: Abdomen soft, non-tender, nondistended. MUSCULOSKELETAL: No cyanosis, or edema. SKIN: Warm and dry. NEURO: No focal neurological deficitis. A/P Problem List: (1) Delirium due to another medical condition ICD Code: F05 - Delirium due to known physiological condition (2) History of CVA (cerebrovascular accident) ICD Code: Z86.73 - Personal history of transient ischemic attack (TIA), and cerebral infarction without residual deficits Status: Chronic (3) Weakness ICD Code: R53.1 - Weakness (4) Acute metabolic encephalopathy ICD Code: G93.41 - Metabolic encephalopathy Assessment and Plan Assessment and Plan 56-year-old male admitted secondary to bacteremia, fever, A. fib RVR, left arm DVT, encephalopathy. Acute Metabolic Encephalopathy Agitated Delirium History of Previous CVA with left hemiparesis Delirium Less oriented today Follow clinically Check ammonia level Decision-making capacity does not exist in this patient Severe combined Metabolic and respiratory acidosis Resolved Continue bronchodilators Continue incentive spirometry Continue mucolytic A flutter/fibrillation with RVR Elevated troponin Coronary artery disease By mouth Cardizem continued Continue metoprolol Cardiology following IV heparin Left upper extremity DVT Continue IV heparin Follow clinically Diabetes mellitus type 2 Follow blood sugars Insulin sliding scale Diabetic diet Sepsis Resolved MSSA bacteremia Suspected infected thrombophlebitis Continue cefazolin Continue rifampin LIGIA showed no vegetations ID following Continue to follow cultures Acute kidney injury Nephrology following Dialysis if needed Monitor renal function Monitor electrolytes DVT prophylaxis IV heparin Nitin Nair MD Jan 31, 2017 10:47
[2017-01-31] MEDS: HYDROmorphone HCL PF 2 MG/ML VIAL IV PUSH PRN (14:28)
--- NOTE | 2017-01-31 15:39 | HHI.NPPN ---
Subjective History of Present Illness 56-year-old male with past medical history of chronic kidney disease, diabetes mellitus, history of cerebrovascular accident with hemiparesis, ischemic heart disease, hypertension, atrial fibrillation who came to the hospital with generalized weakness and dizziness. I was called to see the patient because of very high BUN and creatinine, metabolic acidosis and hyperkalemia. The patient has known history of chronic kidney disease and his baseline creatinine seems to me in the range of 1.6 to 2.2. Additional Remarks Patient is more awake , not in distress. Review of Systems General Constitutional: Fatigue Cardiovascular Cardiac: RODRÍGUEZ Objective Data Data 01/31/17 02/01/17 18:59 06:59 Intake Total 110 ml Balance 110 ml IV Total 110 ml Vital Signs Date Time Temp Pulse Resp B/P (MAP) Pulse Ox O2 Delivery O2 Flow Rate FiO2 01/31/17 14:58 16 01/31/17 14:00 76 01/31/17 12:00 98.2 79 52 124/78 (93) 94 01/31/17 12:00 76 01/31/17 11:46 79 128/78 01/31/17 10:00 76 01/31/17 08:00 98.5 78 42 132/79 (96) 100 01/31/17 08:00 76 01/31/17 06:00 78 01/31/17 04:00 78 01/31/17 04:00 99.3 78 56 125/78 (94) 90 01/31/17 03:15 79 124/75 01/31/17 03:14 79 124/75 01/31/17 02:00 77 01/31/17 00:00 99.2 77 55 109/68 (82) 100 01/31/17 00:00 77 01/30/17 22:00 80 01/30/17 20:00 99.4 108 25 136/93 (107) 97 01/30/17 20:00 108 01/30/17 19:19 94 119/73 01/30/17 19:00 128 119/73 01/30/17 18:00 132 01/30/17 16:24 133 154/85 01/30/17 16:00 98.1 123 28 154/85 (108) 96 01/30/17 16:00 123 -: 01/31/17 0535 01/31/17 0535 Microbiology 01/31/17 Aerobic Blood Culture, Received Pending 01/31/17 Anaerobic Blood Culture, Received Pending Physical Exam General Appearance: No Acute Distress, Comfortable, Anxious Throat Throat Exam: Oral Mucosa [place] & Moist Pulmonary Resp Exam: Breath Sounds Equal, No Distress, Rhonchi, Decreased Bases, Diminished Breath Sounds Cardiology CV Exam: Arrhythmia Gastrointestinal/Abdomen GI Exam: Soft, Non-Tender, Bowel Sounds Present Extremeties Extremities Exam: Trace Edema Neurologic Neuro Exam: Alert, Awake Assessment/Plan Assessment Summary: ABNER/Acute Renal Failure, CKD Stage III Electrolyte Assessment: Hyperkalemia, Hypocalcemia, Metabolic Acidosis Problem List: (1) History of CVA (cerebrovascular accident) ICD Codes: Z86.73 - Personal history of transient ischemic attack (TIA), and cerebral infarction without residual deficits Status: Chronic (2) HTN (hypertension) ICD Codes: I10 - Essential (primary) hypertension Status: Chronic (3) Diabetes ICD Codes: E11.9 - Type 2 diabetes mellitus without complications Status: Acute (4) Metabolic acidemia ICD Codes: E87.2 - Acidosis (5) Hyperkalemia ICD Codes: E87.5 - Hyperkalemia Status: Acute (6) Acute renal failure ICD Codes: N17.9 - Acute kidney failure, unspecified Status: Acute Plan Patient has chronic kidney disease and develop ABNER. Also had metabolic acidosis and Hyperkalemia. Patient has HD 1 session then ARF resolved ATN resolving 1/2 NS at 84 cc/hr Creatinine 2.4 better with nutrition Afib Cardiology LIGIA negative MSSA on Cefazolin follow BMP Problem Qualifiers (1) HTN (hypertension): Qualified Codes: I10 - Essential (primary) hypertension (2) Diabetes: (3) Acute renal failure: Qualified Codes: N17.9 - Acute kidney failure, unspecified Parth Ruiz MD Jan 31, 2017 15:39
[2017-01-31] MEDS: diphenhydrAMINE HCL 25 MG CAP PO PRN (15:58)
[2017-01-31] MEDS: HEPARIN-D5W 25,000 U/250 ML 250 ML IV PRN (17:49)
[2017-01-31] MEDS: ATORVASTATIN 80 MG TAB PO SCH (20:09)
[2017-02-01] VITALS (15 sets, daily range): BP systolic 115–154; BP diastolic 70–86; PULSE 69–83; RESP 16–44; TEMP 97.2–99; O2SAT 92–100
[2017-02-01] MEDS: ACETAMINOPHEN 325 MG TAB PO PRN (00:12)
[2017-02-01] MEDS: CHLORHEXIDINE GLUCONATE 2 % 1 PACK (2 CLOTHS) TOP SCH (01:43)
[2017-02-01] MEDS: OXACILLIN INJ 2 GM in SODIUM CHLORIDE 0.9% INJ 100 ML IV SCH ×5 (04:22→23:19)
[2017-02-01] MEDS: METOCLOPRAMIDE HCL 10 MG/2 ML VIAL IV PUSH SCH ×3 (04:22→18:00)
[2017-02-01] MEDS: RIFAMPIN 150 MG CAP PO SCH ×2 (04:23→14:00)
[2017-02-01] MEDS: DILTIAZEM HCL 30 MG TAB PO SCH ×4 (04:33→23:20)
[2017-02-01] MEDS: HYDROmorphone HCL PF 2 MG/ML VIAL IV PUSH PRN (04:34)
[2017-02-01] MEDS: INSULIN NovoLIN REGULAR SUPPLEMENTAL SCALE SQ SCH ×4 (06:00→18:00)
[2017-02-01 06:41] LABS: AUTOMATED NEUTROPHIL # 15.4 TH/MM3 (1.8-7.7); BASOPHIL % 0.2 % (0.0-2.0); EOSINOPHIL # 0.2 TH/MM3 (0-0.4); EOSINOPHIL % 0.9 % (0.0-4.0); LYMPH % 7.5 % (9.0-44.0); LYMPHOCYTE # 1.3 TH/MM3 (1.0-4.8); MEAN CELL VOLUME 86.6 FL (80.0-100.0); MEAN CORPUSCULAR HEMOGLOBIN 28.3 PG (27.0-34.0); MEAN CORPUSCULAR HGB CONC 32.7 % (32.0-36.0); MONO % 5.7 % (0.0-8.0); NEUT % 85.7 % (16.0-70.0); PLATELET COUNT 272 TH/MM3 (150-450); RED BLOOD COUNT 2.25 MIL/MM3 (4.50-5.90); RED CELL DISTRIBUTION WIDTH 14.7 % (11.6-17.2)
[2017-02-01 06:43] LABS: APTT (PATIENT) 60.8 SEC (24.3-30.1)
[2017-02-01 07:07] LABS: BICARBONATE 21.5 MEQ/L (21.0-32.0); CALCIUM-PROTEIN CORRECTED 7.5 MG/DL (8.5-10.1); POTASSIUM 4.2 MEQ/L (3.5-5.1); TOTAL BILIRUBIN ADULT 0.6 MG/DL (0.2-1.0)
[2017-02-01 07:21] LABS: HEMO FLAGS DIFF FINAL
[2017-02-01 07:24] LABS: HEMATOCRIT 19.5 % (39.0-51.0)
[2017-02-01] MEDS ORDERED: SODIUM CHLOR 0.9% 250 ML INJ 250 ML IV ONE (07:45)
[2017-02-01] MEDS: SODIUM CHLORIDE 0.9% FLUSH 10 ML FLUSH IV FLUSH SCH ×2 (09:00→20:48)
[2017-02-01] MEDS: DOCUSATE SODIUM 50 MG/SENNA 8.6 MG TAB PO SCH ×2 (09:00→20:49)
[2017-02-01] MEDS ORDERED: CALCIUM GLUCONATE INJ 1 GM in SODIUM CHLORIDE 0.9% INJ 90 ML IV ONE (09:00)
[2017-02-01 09:29] LABS: APTT (PATIENT) 62.6 SEC (24.3-30.1)
[2017-02-01] MEDS: guaiFENesin E.R. 600 MG TAB PO SCH ×2 (09:46→20:49)
[2017-02-01] MEDS: QUEtiapine FUMARATE 25 MG TAB PO SCH ×2 (09:47→20:49)
[2017-02-01] MEDS: POTASSIUM PHOSPHATE MONOBASIC 500 MG TAB PO SCH ×2 (09:47→20:49)
[2017-02-01] MEDS: ASPIRIN EC 81 MG TABEC PO SCH (09:47)
[2017-02-01] MEDS: METOPROLOL TARTRATE 50 MG TAB PO SCH ×2 (09:47→20:49)
[2017-02-01] MEDS: CALCIUM CARBONATE 1.25 GM (CA 500 MG) TAB PO SCH ×3 (09:47→18:00)
--- NOTE | 2017-02-01 10:19 | HHI.PR ---
Subjective Remarks Patient unable to verbalize. His hemoglobin has dropped to 6.4 overnight. Transfusion ordered. Calcium level is improved compared to yesterday but remains low at 7.5. Supplements provided. Renal function slightly improved. White blood cell count slightly improved. Objective Vital Signs Date Time Temp Pulse Resp B/P (MAP) Pulse Ox O2 Delivery O2 Flow Rate FiO2 02/01/17 06:00 76 02/01/17 05:04 20 02/01/17 04:00 97.8 82 30 138/86 (103) 97 02/01/17 04:00 82 02/01/17 02:00 82 02/01/17 01:12 22 02/01/17 00:00 99.0 83 44 125/79 (94) 96 02/01/17 00:00 83 01/31/17 22:00 84 01/31/17 20:00 88 01/31/17 20:00 98.8 88 31 129/83 (98) 100 01/31/17 18:00 76 01/31/17 16:00 76 01/31/17 16:00 98.7 78 18 139/80 (99) 100 01/31/17 14:58 16 01/31/17 14:00 76 01/31/17 12:00 98.2 79 52 124/78 (93) 94 01/31/17 12:00 76 01/31/17 11:46 79 128/78 I/O 01/31/17 01/31/17 01/31/17 02/01/17 02/01/17 02/01/17 07:00 15:00 23:00 07:00 15:00 23:00 Intake Total 1156 ml 350 ml 1576 ml Output Total 800 ml 550 ml 500 ml Balance 356 ml -200 ml 1076 ml Intake Oral 300 ml 240 ml 240 ml IV Total 856 ml 110 ml 1336 ml Output Urine Total 800 ml 550 ml 500 ml # Bowel Movements 0 1 Result Diagram: 02/01/1761102/01/17611 Procedures Hemodialysis. Objective Remarks GENERAL: NAD, A&Ox0 HEAD: Normocephalic. NECK: Supple, trachea midline. No lymphadenopathy. EYES: No scleral icterus. No injection or drainage. CARDIOVASCULAR: Regular rate and rhythm without murmurs, gallops, or rubs. RESPIRATORY: Breath sounds equal bilaterally. No accessory muscle use. GASTROINTESTINAL: Abdomen soft, non-tender, nondistended. MUSCULOSKELETAL: No cyanosis, or edema. SKIN: Warm and dry. NEURO: No focal neurological deficitis. A/P Problem List: (1) Delirium due to another medical condition ICD Code: F05 - Delirium due to known physiological condition (2) History of CVA (cerebrovascular accident) ICD Code: Z86.73 - Personal history of transient ischemic attack (TIA), and cerebral infarction without residual deficits Status: Chronic (3) Weakness ICD Code: R53.1 - Weakness (4) Acute metabolic encephalopathy ICD Code: G93.41 - Metabolic encephalopathy Assessment and Plan Assessment and Plan 56-year-old male admitted secondary to bacteremia, fever, A. fib RVR, left arm DVT, encephalopathy. Labs reviewed. Hemoglobin level dropped. 2 units packed red blood cells transfused 02/01/17. Calcium level is low and supplementation provided. Continue to monitor renal function and white blood cell count. Labs ordered for further monitoring. Acute blood loss anemia Obtain stool occult blood study Transfuse 2 units packed red blood cells on 02/01/17 Monitor hemoglobin Acute Metabolic Encephalopathy Agitated Delirium History of Previous CVA with left hemiparesis Delirium Less oriented today Follow clinically Check ammonia level Decision-making capacity does not exist in this patient Severe combined Metabolic and respiratory acidosis Resolved Continue bronchodilators Continue incentive spirometry Continue mucolytic A flutter/fibrillation with RVR Elevated troponin Coronary artery disease By mouth Cardizem continued Continue metoprolol Cardiology following IV heparin Left upper extremity DVT Continue IV heparin Follow clinically Diabetes mellitus type 2 Follow blood sugars Insulin sliding scale Diabetic diet Sepsis Resolved MSSA bacteremia Suspected infected thrombophlebitis Continue cefazolin Continue rifampin LIGIA showed no vegetations ID following Continue to follow cultures Acute kidney injury Nephrology following Dialysis if needed Monitor renal function Monitor electrolytes DVT prophylaxis IV heparin Nitin Nair MD Feb 01, 2017 10:19
[2017-02-01] MEDS: INSULIN DETEMIR 100 UNITS/ML VIAL SQ SCH ×2 (10:25→20:49)
[2017-02-01] MEDS: DILTIAZEM 125 MG/NS 100 ML IV PRN ×2 (11:45)
[2017-02-01] MEDS: SODIUM CHLOR 0.45% 1000 ML INJ 1,000 ML IV SCH (11:47)
--- NOTE | 2017-02-01 14:06 | HHI.NPPN ---
Subjective History of Present Illness 56-year-old male with past medical history of chronic kidney disease, diabetes mellitus, history of cerebrovascular accident with hemiparesis, ischemic heart disease, hypertension, atrial fibrillation who came to the hospital with generalized weakness and dizziness. I was called to see the patient because of very high BUN and creatinine, metabolic acidosis and hyperkalemia. The patient has known history of chronic kidney disease and his baseline creatinine seems to me in the range of 1.6 to 2.2. Additional Remarks Patient is more awake , not in distress. Review of Systems General Constitutional: Fatigue Cardiovascular Cardiac: RODRÍGUEZ Objective Data Data 02/01/17 02/02/17 19:00 07:00 Intake Total 110 ml Balance 110 ml IV Total 100 ml Blood Product IV Normal Saline Flush 10 ml Vital Signs Date Time Temp Pulse Resp B/P (MAP) Pulse Ox O2 Delivery O2 Flow Rate FiO2 02/01/17 14:02 98.3 69 16 132/76 99 02/01/17 11:45 75 126/78 02/01/17 10:00 77 02/01/17 08:00 98.2 76 35 142/81 (101) 100 02/01/17 08:00 77 02/01/17 06:00 76 02/01/17 05:04 20 02/01/17 04:00 97.8 82 30 138/86 (103) 97 02/01/17 04:00 82 02/01/17 02:00 82 02/01/17 01:12 22 02/01/17 00:00 99.0 83 44 125/79 (94) 96 02/01/17 00:00 83 01/31/17 22:00 84 01/31/17 20:00 88 01/31/17 20:00 98.8 88 31 129/83 (98) 100 01/31/17 18:00 76 01/31/17 16:00 76 01/31/17 16:00 98.7 78 18 139/80 (99) 100 01/31/17 14:58 16 -: 02/01/17 0612 02/01/17 0612 Microbiology 02/01/17 Aerobic Blood Culture, Received Pending 02/01/17 Anaerobic Blood Culture, Received Pending Physical Exam General Appearance: No Acute Distress, Comfortable, Anxious Throat Throat Exam: Oral Mucosa [place] & Moist Pulmonary Resp Exam: Breath Sounds Equal, No Distress, Rhonchi, Decreased Bases, Diminished Breath Sounds Cardiology CV Exam: Arrhythmia Gastrointestinal/Abdomen GI Exam: Soft, Non-Tender, Bowel Sounds Present Extremeties Extremities Exam: Trace Edema Neurologic Neuro Exam: Alert, Awake Assessment/Plan Assessment Summary: ABNER/Acute Renal Failure, CKD Stage III Electrolyte Assessment: Hyperkalemia, Hypocalcemia, Metabolic Acidosis Problem List: (1) History of CVA (cerebrovascular accident) ICD Codes: Z86.73 - Personal history of transient ischemic attack (TIA), and cerebral infarction without residual deficits Status: Chronic (2) HTN (hypertension) ICD Codes: I10 - Essential (primary) hypertension Status: Chronic (3) Diabetes ICD Codes: E11.9 - Type 2 diabetes mellitus without complications Status: Acute (4) Metabolic acidemia ICD Codes: E87.2 - Acidosis (5) Hyperkalemia ICD Codes: E87.5 - Hyperkalemia Status: Acute (6) Acute renal failure ICD Codes: N17.9 - Acute kidney failure, unspecified Status: Acute Plan Patient has chronic kidney disease and develop ABNER. Also had metabolic acidosis and Hyperkalemia. Patient has HD 1 session then ARF resolved ATN resolving 1/2 NS at 84 cc/hr Creatinine 2.3 better with nutrition H/H dropped PRBC Poor candidate for Epo due to CVA may give Iron Afib Cardiology LIGIA negative MSSA on Cefazolin follow BMP Problem Qualifiers (1) HTN (hypertension): Qualified Codes: I10 - Essential (primary) hypertension (2) Diabetes: (3) Acute renal failure: Qualified Codes: N17.9 - Acute kidney failure, unspecified Parth Ruiz MD Feb 01, 2017 14:06
[2017-02-01] MEDS: ATORVASTATIN 80 MG TAB PO SCH (20:49)
[2017-02-02] VITALS (13 sets, daily range): BP systolic 125–158; BP diastolic 68–88; PULSE 72–77; RESP 18–32; TEMP 97.4–99.2; O2SAT 83–100
[2017-02-02] MEDS: METOCLOPRAMIDE HCL 10 MG/2 ML VIAL IV PUSH SCH ×3 (02:49→17:56)
[2017-02-02] MEDS: RIFAMPIN 150 MG CAP PO SCH ×2 (02:49→12:47)
[2017-02-02] MEDS: OXACILLIN INJ 2 GM in SODIUM CHLORIDE 0.9% INJ 100 ML IV SCH ×8 (02:49→23:48)
[2017-02-02] MEDS: CHLORHEXIDINE GLUCONATE 2 % 1 PACK (2 CLOTHS) TOP SCH (02:50)
[2017-02-02] MEDS: HALOPERIDOL LACTATE 5 MG/ML AMP IV PRN (02:54)
[2017-02-02] MEDS: SODIUM CHLOR 0.45% 1000 ML INJ 1,000 ML IV SCH (05:03)
[2017-02-02] MEDS: INSULIN NovoLIN REGULAR SUPPLEMENTAL SCALE SQ SCH ×5 (05:32→23:48)
[2017-02-02] MEDS: DILTIAZEM HCL 30 MG TAB PO SCH ×4 (05:32→23:48)
[2017-02-02 05:46] LABS: AUTOMATED NEUTROPHIL # 16.8 TH/MM3 (1.8-7.7); BASOPHIL # 0.1 TH/MM3 (0-0.2); BASOPHIL % 0.8 % (0.0-2.0); EOSINOPHIL # 0.1 TH/MM3 (0-0.4); EOSINOPHIL % 0.6 % (0.0-4.0); HEMATOCRIT 22.9 % (39.0-51.0); LYMPH % 6.9 % (9.0-44.0); LYMPHOCYTE # 1.3 TH/MM3 (1.0-4.8); MEAN CELL VOLUME 87.7 FL (80.0-100.0); MEAN CORPUSCULAR HEMOGLOBIN 27.7 PG (27.0-34.0); MEAN CORPUSCULAR HGB CONC 31.6 % (32.0-36.0); MONO % 4.5 % (0.0-8.0); NEUT % 87.2 % (16.0-70.0); PLATELET COUNT 291 TH/MM3 (150-450); RED BLOOD COUNT 2.62 MIL/MM3 (4.50-5.90); RED CELL DISTRIBUTION WIDTH 14.7 % (11.6-17.2); WHITE BLOOD COUNT 19.3 TH/MM3 (4.0-11.0)
[2017-02-02 05:49] LABS: HEMO FLAGS AUTO DIFF
[2017-02-02 05:59] LABS: APTT (PATIENT) 64.1 SEC (24.3-30.1)
[2017-02-02 06:29] LABS: ANION GAP 8 MEQ/L (5-15); AST (GOT) 71 U/L (15-37); BICARBONATE 21.2 MEQ/L (21.0-32.0); BLOOD UREA NITROGEN 24 MG/DL (7-18); CHLORIDE 106 MEQ/L (98-107); GLOMERULAR FILTRATION RATE 44 ML/MIN (>89); POTASSIUM 4.3 MEQ/L (3.5-5.1); SODIUM (NA) 135 MEQ/L (136-145)
[2017-02-02 06:45] LABS: ALKALINE PHOSPHATASE 76 U/L (45-117); ALT (GPT) 6 U/L (12-78); FERRITIN 1418 NG/ML (26-388); TOTAL BILIRUBIN ADULT 0.6 MG/DL (0.2-1.0); TRANSFERRIN IRON PROFILE 93 MG/DL (200-360)
[2017-02-02] MEDS: POTASSIUM PHOSPHATE MONOBASIC 500 MG TAB PO SCH ×2 (08:43→20:44)
[2017-02-02] MEDS: CALCIUM CARBONATE 1.25 GM (CA 500 MG) TAB PO SCH ×3 (08:43→17:55)
[2017-02-02] MEDS: DOCUSATE SODIUM 50 MG/SENNA 8.6 MG TAB PO SCH ×2 (08:43→20:44)
[2017-02-02] MEDS: guaiFENesin E.R. 600 MG TAB PO SCH ×2 (08:43→20:44)
[2017-02-02] MEDS: ASPIRIN EC 81 MG TABEC PO SCH (08:43)
[2017-02-02] MEDS: METOPROLOL TARTRATE 50 MG TAB PO SCH ×2 (08:43→20:45)
[2017-02-02] MEDS: SODIUM CHLORIDE 0.9% FLUSH 10 ML FLUSH IV FLUSH SCH ×2 (08:43→20:44)
[2017-02-02] MEDS: INSULIN DETEMIR 100 UNITS/ML VIAL SQ SCH ×2 (08:44→20:45)
[2017-02-02] MEDS: QUEtiapine FUMARATE 25 MG TAB PO SCH ×2 (08:44→20:44)
[2017-02-02 10:36] LABS: SCAN/DIFF AUTO DIFF CONFIRMED
[2017-02-02 12:05] LABS: APTT (PATIENT) 65.1 SEC (24.3-30.1)
--- NOTE | 2017-02-02 14:00 | HHI.NPPN ---
Subjective History of Present Illness 56-year-old male with past medical history of chronic kidney disease, diabetes mellitus, history of cerebrovascular accident with hemiparesis, ischemic heart disease, hypertension, atrial fibrillation who came to the hospital with generalized weakness and dizziness. I was called to see the patient because of very high BUN and creatinine, metabolic acidosis and hyperkalemia. The patient has known history of chronic kidney disease and his baseline creatinine seems to me in the range of 1.6 to 2.2. Additional Remarks Patient is more awake , not in distress. Review of Systems General Constitutional: Fatigue Cardiovascular Cardiac: RODRÍGUEZ Objective Data Data Vital Signs Date Time Temp Pulse Resp B/P (MAP) Pulse Ox O2 Delivery O2 Flow Rate FiO2 02/02/17 12:00 98.1 73 22 143/81 (101) 85 02/02/17 12:00 73 02/02/17 10:00 74 02/02/17 08:00 Nasal Cannula 3.00 02/02/17 08:00 76 02/02/17 08:00 98.8 76 24 154/88 (110) 02/02/17 06:00 77 02/02/17 04:00 97.4 72 20 153/81 (105) 02/02/17 04:00 72 02/02/17 02:00 73 02/02/17 00:00 98.1 75 18 158/82 (107) 02/02/17 00:00 75 02/01/17 22:00 74 02/01/17 21:28 92 Nasal Cannula 4.00 02/01/17 20:00 97.2 73 18 154/84 (107) 100 02/01/17 20:00 73 02/01/17 18:00 77 02/01/17 17:52 98.0 72 16 141/85 100 02/01/17 16:00 98.4 69 22 136/79 (98) 93 02/01/17 16:00 77 02/01/17 14:02 98.3 69 16 132/76 99 02/01/17 14:00 77 -: 02/02/17 0500 02/02/17 0500 Physical Exam General Appearance: No Acute Distress, Comfortable, Anxious Throat Throat Exam: Oral Mucosa Whitten & Moist Pulmonary Resp Exam: Breath Sounds Equal, No Distress, Rhonchi, Decreased Bases, Diminished Breath Sounds Cardiology CV Exam: Arrhythmia Gastrointestinal/Abdomen GI Exam: Soft, Non-Tender, Bowel Sounds Present Extremeties Extremities Exam: Trace Edema Neurologic Neuro Exam: Alert, Awake Assessment/Plan Assessment Summary: ABNER/Acute Renal Failure, CKD Stage III Electrolyte Assessment: Hyperkalemia, Hypocalcemia, Metabolic Acidosis Problem List: (1) History of CVA (cerebrovascular accident) ICD Codes: Z86.73 - Personal history of transient ischemic attack (TIA), and cerebral infarction without residual deficits Status: Chronic (2) HTN (hypertension) ICD Codes: I10 - Essential (primary) hypertension Status: Chronic (3) Diabetes ICD Codes: E11.9 - Type 2 diabetes mellitus without complications Status: Acute (4) Metabolic acidemia ICD Codes: E87.2 - Acidosis (5) Hyperkalemia ICD Codes: E87.5 - Hyperkalemia Status: Acute (6) Acute renal failure ICD Codes: N17.9 - Acute kidney failure, unspecified Status: Acute Plan Patient has chronic kidney disease and develop ABNER. Also had metabolic acidosis and Hyperkalemia. Patient has HD 1 session then ARF resolved ATN resolving 1/2 NS at 84 cc/hr Creatinine 1.94 better with nutrition H/H dropped PRBC Poor candidate for Epo due to CVA may give Iron Afib Cardiology LIGIA negative MSSA on Oxacillin follow BMP Problem Qualifiers (1) HTN (hypertension): Qualified Codes: I10 - Essential (primary) hypertension (2) Diabetes: (3) Acute renal failure: Qualified Codes: N17.9 - Acute kidney failure, unspecified Parth Ruiz MD Feb 02, 2017 14:00
--- NOTE | 2017-02-02 16:15 | HHI.PR ---
Subjective Remarks Calcium level improved 7.7. Hemoglobin level improved status post transfusion to 7.2. The hemoglobin is not as high as would've been expected posttransfusion. Blood loss may still be present. Renal function slowly improving. Objective Vital Signs Date Time Temp Pulse Resp B/P (MAP) Pulse Ox O2 Delivery O2 Flow Rate FiO2 02/02/17 14:00 74 02/02/17 12:00 98.1 73 22 143/81 (101) 85 02/02/17 12:00 73 02/02/17 10:00 74 02/02/17 08:00 Nasal Cannula 3.00 02/02/17 08:00 76 02/02/17 08:00 98.8 76 24 154/88 (110) 02/02/17 06:00 77 02/02/17 04:00 97.4 72 20 153/81 (105) 02/02/17 04:00 72 02/02/17 02:00 73 02/02/17 00:00 98.1 75 18 158/82 (107) 02/02/17 00:00 75 02/01/17 22:00 74 02/01/17 21:28 92 Nasal Cannula 4.00 02/01/17 20:00 97.2 73 18 154/84 (107) 100 02/01/17 20:00 73 02/01/17 18:00 77 02/01/17 17:52 98.0 72 16 141/85 100 I/O 02/01/17 02/01/17 02/01/17 02/02/17 02/02/17 02/02/17 07:00 15:00 23:00 07:00 15:00 23:00 Intake Total 1576 ml 110 ml 2410 ml 1415 ml Output Total 500 ml 1700 ml 800 ml Balance 1076 ml 110 ml 710 ml 615 ml Intake Oral 240 ml 240 ml 240 ml IV Total 1336 ml 100 ml 1250 ml 1175 ml Packed Cells 800 ml Blood Product IV Normal Saline Flush 10 ml 120 ml Output Urine Total 500 ml 1700 ml 800 ml # Bowel Movements 1 1 0 Result Diagram: 02/02/17 0500 02/02/17 0500 Procedures Hemodialysis. Objective Remarks GENERAL: NAD, A&Ox0 HEAD: Normocephalic. NECK: Supple, trachea midline. No lymphadenopathy. EYES: No scleral icterus. No injection or drainage. CARDIOVASCULAR: Regular rate and rhythm without murmurs, gallops, or rubs. RESPIRATORY: Breath sounds equal bilaterally. No accessory muscle use. GASTROINTESTINAL: Abdomen soft, non-tender, nondistended. MUSCULOSKELETAL: No cyanosis, or edema. SKIN: Warm and dry. NEURO: No focal neurological deficitis. A/P Problem List: (1) Delirium due to another medical condition ICD Code: F05 - Delirium due to known physiological condition (2) History of CVA (cerebrovascular accident) ICD Code: Z86.73 - Personal history of transient ischemic attack (TIA), and cerebral infarction without residual deficits Status: Chronic (3) Weakness ICD Code: R53.1 - Weakness (4) Acute metabolic encephalopathy ICD Code: G93.41 - Metabolic encephalopathy Assessment and Plan Assessment and Plan 56-year-old male admitted secondary to bacteremia, fever, A. fib RVR, left arm DVT, encephalopathy. Labs reviewed. Hemoglobin level dropped. 2 units packed red blood cells transfused 02/01/17. Calcium level is low and supplementation provided. Continue to monitor renal function and white blood cell count. Labs ordered for further monitoring. Labs reviewed. Follow Hgb as anemia is still exhibiting a progressive decline. Labs ordered for further monitoring. Acute blood loss anemia Obtain stool occult blood study Transfuse 2 units packed red blood cells on 02/01/17 Monitor hemoglobin Acute Metabolic Encephalopathy Agitated Delirium History of Previous CVA with left hemiparesis Delirium Less oriented today Follow clinically Check ammonia level Decision-making capacity does not exist in this patient Severe combined Metabolic and respiratory acidosis Resolved Continue bronchodilators Continue incentive spirometry Continue mucolytic A flutter/fibrillation with RVR Elevated troponin Coronary artery disease By mouth Cardizem continued Continue metoprolol Cardiology following IV heparin Left upper extremity DVT Continue IV heparin Follow clinically Diabetes mellitus type 2 Follow blood sugars Insulin sliding scale Diabetic diet Sepsis Resolved MSSA bacteremia Suspected infected thrombophlebitis Continue cefazolin Continue rifampin LIGIA showed no vegetations ID following Continue to follow cultures Acute kidney injury Nephrology following Dialysis if needed Monitor renal function Monitor electrolytes DVT prophylaxis IV heparin Nitin Nair MD Feb 02, 2017 16:15
--- NOTE | 2017-02-02 18:16 | HHI.HCPN ---
Reason for visit a. To assist with evaluation and management of symptoms including: pain, weakness, decreased appetite. b. To assist medical decision maker(s) with: better understanding of current medical conditions; weighing benefits/burdens of medical treatment options; making medical treatment decisions. . Subjective/Interval History Patient seen in ICU to follow-up on comfort, goals. Repeat blood cultures from 02/01 no growth. ID continues to follow sepsis along changed to oxacillin. Also on rifampin. Per ID will need 6 weeks of antibiotic after last positive blood culture. Blood culture 01/29 staph aureus. Renal function slowly improving BUN 24, creatinine 1.94. Urine output adequate. H&H significantly decrease yesterday 6.4/19.5, transfuse 2 units of RBCs. Today with only slight improvement despite transfusion 7.2/22.9. No obvious sources or signs of bleeding. Remains in ICU for continued monitoring. Still with fluctuating to poor oral intake eating 50% of a couple of meals per nursing documentation. Seen today in room with [id number] Kimberly, family at bedside. He is eating dinner well with her feeding him. He is awake, cooperative oriented to self and family. He asks for more sugar in his tea. Ashley indicates he would eat better if it was food that he likes, but he does not like the restrictive hospital diet. He eats well when she is here to feed him. No Apparent difficulty observed today during my exam. Review with them current assessment, treatments in place, recent transfusion, and patient not ordered for transfer yet. Explore with them that if his oral intake does not continue to increase or maintain an adequate level may still need to consider feeding tube. . Advance Directives Living Will: Never completed Health Care Surrogate: Never completed Durable Power of Fire Control Officer: Never completed Advance Directive Specifics Health Care Surrogate(s): Patient is incapacitated to make his own health care decisions, uncertain if he will regain capacity. Single. No children. Mother in a detention with underlying schizophrenia, not capacitated herself. Father . 2 sisters and one brother. 2 sisters, Lizeth and Alejandrina do not wish to serve as healthcare proxy decision makers. Therefore, healthcare proxy decision-making will fall to the patient's brother,Isabela Andrews, he is willing to serve in this role. . Objective Vital Signs Date Time Temp Pulse Resp B/P (MAP) Pulse Ox O2 Delivery O2 Flow Rate FiO2 02/02/17 16:00 98.6 73 32 126/71 (89) 83 02/02/17 16:00 73 02/02/17 14:00 74 02/02/17 12:00 98.1 73 22 143/81 (101) 85 02/02/17 12:00 73 02/02/17 10:00 74 02/02/17 08:00 Nasal Cannula 3.00 02/02/17 08:00 76 02/02/17 08:00 98.8 76 24 154/88 (110) 02/02/17 06:00 77 02/02/17 04:00 97.4 72 20 153/81 (105) 02/02/17 04:00 72 02/02/17 02:00 73 02/02/17 00:00 98.1 75 18 158/82 (107) 02/02/17 00:00 75 02/01/17 22:00 74 02/01/17 21:28 92 Nasal Cannula 4.00 02/01/17 20:00 97.2 73 18 154/84 (107) 100 02/01/17 20:00 73 Intake & Output 02/02/17 02/02/17 07:00 19:00 Intake Total 1915 ml Output Total 800 ml Balance 1115 ml Intake Oral 240 ml IV Total 1175 ml Packed Cells 400 ml Blood Product IV Normal Saline Flush 100 ml Output Urine Total 800 ml # Bowel Movements 0 Physical Exam CONSTITUTIONAL/GENERAL: This is an adequately nourished patient,alert, cooperative. eating dinner (being fed by family) TUBES/LINES/DRAINS: PIV LUE, NC, condom catheter. SKIN: Skin warm/dry CARDIOVASCULAR: Irregular,no murmur. Trace edema to UE. RESPIRATORY/CHEST: Unlabored respirations on NC. Course airmovement throughout. Decreased to bases GASTROINTESTINAL: Abdomen soft, non-tender, nondistended. No guarding. Bowel sounds normoactive GENITOURINARY: Without palpable bladder distension. external Catheter in place. 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 trace edema BUE NEUROLOGICAL: awake oriented to self, family. cooperative, follows simple commands. Verbalizes a few words. PSYCHIATRIC: no apparent distress/anxiety . Diagnostic Tests Laboratory Laboratory Tests Test 01/31/17 05:35 02/01/17 06:12 02/01/17 09:00 02/02/17 05:00 White Blood Count 20.0 TH/MM3 (4.0-11.0) 18.0 TH/MM3 (4.0-11.0) 19.3 TH/MM3 (4.0-11.0) Red Blood Count 2.57 MIL/MM3 (4.50-5.90) 2.25 MIL/MM3 (4.50-5.90) 2.62 MIL/MM3 (4.50-5.90) Hemoglobin 7.5 GM/DL (13.0-17.0) 6.4 GM/DL (13.0-17.0) 7.2 GM/DL (13.0-17.0) Hematocrit 22.2 % (39.0-51.0) 19.5 % (39.0-51.0) 22.9 % (39.0-51.0) Mean Corpuscular Volume 86.3 FL (80.0-100.0) 86.6 FL (80.0-100.0) 87.7 FL (80.0-100.0) Mean Corpuscular Hemoglobin 29.1 PG (27.0-34.0) 28.3 PG (27.0-34.0) 27.7 PG (27.0-34.0) Mean Corpuscular Hemoglobin Concent 33.8 % (32.0-36.0) 32.7 % (32.0-36.0) 31.6 % (32.0-36.0) Red Cell Distribution Width 14.6 % (11.6-17.2) 14.7 % (11.6-17.2) 14.7 % (11.6-17.2) Platelet Count 279 TH/MM3 (150-450) 272 TH/MM3 (150-450) 291 TH/MM3 (150-450) Mean Platelet Volume 8.7 FL (7.0-11.0) 8.2 FL (7.0-11.0) 8.8 FL (7.0-11.0) Neutrophils (%) (Auto) 87.5 % (16.0-70.0) 85.7 % (16.0-70.0) 87.2 % (16.0-70.0) Lymphocytes (%) (Auto) 6.6 % (9.0-44.0) 7.5 % (9.0-44.0) 6.9 % (9.0-44.0) Monocytes (%) (Auto) 5.0 % (0.0-8.0) 5.7 % (0.0-8.0) 4.5 % (0.0-8.0) Eosinophils (%) (Auto) 0.6 % (0.0-4.0) 0.9 % (0.0-4.0) 0.6 % (0.0-4.0) Basophils (%) (Auto) 0.3 % (0.0-2.0) 0.2 % (0.0-2.0) 0.8 % (0.0-2.0) Neutrophils # (Auto) 17.5 TH/MM3 (1.8-7.7) 15.4 TH/MM3 (1.8-7.7) 16.8 TH/MM3 (1.8-7.7) Lymphocytes # (Auto) 1.3 TH/MM3 (1.0-4.8) 1.3 TH/MM3 (1.0-4.8) 1.3 TH/MM3 (1.0-4.8) Monocytes # (Auto) 1.0 TH/MM3 (0-0.9) 1.0 TH/MM3 (0-0.9) 0.9 TH/MM3 (0-0.9) Eosinophils # (Auto) 0.1 TH/MM3 (0-0.4) 0.2 TH/MM3 (0-0.4) 0.1 TH/MM3 (0-0.4) Basophils # (Auto) 0.1 TH/MM3 (0-0.2) 0.0 TH/MM3 (0-0.2) 0.1 TH/MM3 (0-0.2) CBC Comment DIFF FINAL DIFF FINAL AUTO DIFF Differential Comment AUTO DIFF CONFIRMED Activated Partial Thromboplast Time 66.4 SEC (24.3-30.1) 60.8 SEC (24.3-30.1) 62.6 SEC (24.3-30.1) 64.1 SEC (24.3-30.1) Blood Urea Nitrogen 29 MG/DL (7-18) 27 MG/DL (7-18) 24 MG/DL (7-18) Creatinine 2.45 MG/DL (0.60-1.30) 2.33 MG/DL (0.60-1.30) 1.94 MG/DL (0.60-1.30) Random Glucose 123 MG/DL (74-106) 115 MG/DL (74-106) 123 MG/DL (74-106) Total Protein 6.9 GM/DL (6.4-8.2) 6.8 GM/DL (6.4-8.2) 7.5 GM/DL (6.4-8.2) Calcium Level 7.1 MG/DL (8.5-10.1) 7.3 MG/DL (8.5-10.1) 7.7 MG/DL (8.5-10.1) Sodium Level 135 MEQ/L (136-145) 135 MEQ/L (136-145) 135 MEQ/L (136-145) Potassium Level 3.8 MEQ/L (3.5-5.1) 4.2 MEQ/L (3.5-5.1) 4.3 MEQ/L (3.5-5.1) Chloride Level 106 MEQ/L (98-107) 106 MEQ/L (98-107) 106 MEQ/L (98-107) Carbon Dioxide Level 21.0 MEQ/L (21.0-32.0) 21.5 MEQ/L (21.0-32.0) 21.2 MEQ/L (21.0-32.0) Anion Gap 8 MEQ/L (5-15) 8 MEQ/L (5-15) 8 MEQ/L (5-15) Estimat Glomerular Filtration Rate 33 ML/MIN (>89) 35 ML/MIN (>89) 44 ML/MIN (>89) Protein Corrected Calcium 7.2 MG/DL (8.5-10.1) 7.5 MG/DL (8.5-10.1) Albumin 1.2 GM/DL (3.4-5.0) 1.3 GM/DL (3.4-5.0) Alkaline Phosphatase 78 U/L (45-117) 76 U/L (45-117) Aspartate Amino Transf (AST/SGOT) 56 U/L (15-37) 71 U/L (15-37) Alanine Aminotransferase (ALT/SGPT) 7 U/L (12-78) 6 U/L (12-78) Total Bilirubin 0.6 MG/DL (0.2-1.0) 0.6 MG/DL (0.2-1.0) Ammonia 30 MCMOL/L (11-32) Iron Level 31 MCG/DL (65-175) Total Iron Binding Capacity 130 MCG/DL (250-450) Percent Iron Saturation 23.8 % (20-50) Ferritin 1418 NG/ML (26-388) Test 02/02/17 11:40 02/02/17 17:08 Activated Partial Thromboplast Time 65.1 SEC (24.3-30.1) Result Diagram: 02/02/17 0500 02/02/17 0500 Microbiology Microbiology Date/Time Source Procedure Growth Status 02/01/17 06:12 Blood Peripheral Aerobic Blood Culture - Preliminary NO GROWTH IN 1 DAY Resulted 02/01/17 06:12 Blood Peripheral Anaerobic Blood Culture - Preliminary NO GROWTH IN 1 DAY Resulted 01/31/17 05:35 Blood Peripheral Aerobic Blood Culture - Preliminary NO GROWTH IN 2 DAYS Resulted 01/31/17 05:35 Blood Peripheral Anaerobic Blood Culture - Preliminary NO GROWTH IN 2 DAYS Resulted Imaging Last Impressions Abdomen/Pelvis CT 01/28/17 0000 Signed Impressions: Service Date/Time: Saturday, January 28, 2017 20:18 - CONCLUSION: 1. Bilateral pleural effusions and bibasilar infiltrates. 2. Cardiomegaly. 3. Subcutaneous edema. 4. Umbilical hernia. Jermaine Malone Jr., MD Abdomen X-Ray 01/25/17 0000 Signed Impressions: Service Date/Time: Wednesday, January 25, 2017 14:33 - CONCLUSION: Nonspecific, nonobstructive bowel gas pattern. Scot Sung MD Upper Extremity Ultrasound 01/23/17 0000 Signed Impressions: Service Date/Time: Monday, January 23, 2017 17:45 - CONCLUSION: Thrombus identified within the internal jugular, subclavian, and the basilic veins. Jeyson Luciano MD Chest X-Ray 01/21/17 0000 Signed Impressions: Service Date/Time: Saturday, January 21, 2017 22:42 - CONCLUSION: New hazy opacity in both lungs with concern for ovarian edema and congestive heart failure. Jose Espinal MD Head CT 01/10/17 1257 Signed Impressions: Service Date/Time: Tuesday, January 10, 2017 13:32 - CONCLUSION: No acute disease. Jermaine Malone Jr., MD Renal Ultrasound 01/10/17 0000 Signed Impressions: Service Date/Time: Tuesday, January 10, 2017 17:01 - CONCLUSION: Normal examination. Jermaine Malone Jr., MD Assessment and Plan Disease Oriented Problem List: (1) Leukocytosis (2) Malnutrition (3) HTN (hypertension) (4) Atrial flutter (5) Acute metabolic encephalopathy (6) Acute on chronic kidney failure (7) Diabetes Symptom Scale: (1) Pain 0-10 Scale: Unable to quantify Comment: Patient not answering most questions. (2) Weakness 0-10 Scale: Unable to quantify Comment: Secondary to prior CVA, left hemiparesis (3) Decreased appetite 0-10 Scale: Unable to quantify Comment: eating very little Pertinent Non-Medical Issues Psychosocial: Single. No children. Disabled. Brother, Isabela Andrews is serving as healthcare proxy decision maker per [place] statutes. Spiritual: [employer] car[employer]. Legal:Patient deemed incapacitated per psychiatry to make his own health care decisions, uncertain if he will regain capacity. Single. No children. Mother in a detention with underlying schizophrenia, not capacitated herself. Father . 2 sisters and one brother. 2 sisters, Lizeth and Alejandrina do not wish to serve as healthcare proxy decision makers. Therefore, healthcare proxy decision-making will fall to the patient's brother,Isabela Andrews, he is willing to serve in this role. Ethical issues impacting care: no known concerns at this time. . Important Contacts * Isabela Andrews, brother/HCP: [phone] * Christy Colon, ex sister in law ([place] ex- - who pt trusts): * Alta Andrews, sister opted out of HCP decision-making and [phone] * Alejandrina sifuentes, sister, opted out of HCP decision [phone] * Kylee Kendall, mother, incapacitated, in SNF . Prognosis Mr. Andrews is a 56-year-old male with long history of noncompliance, refusing medication, questionable underlying psychiatric disease, admitted with acute on chronic renal failure, coronary artery disease, atrial fib/flutter refusing medications. Patient remains high risk for repeat hospitalization, further decline or even . Uncertain if patient has underlying psychiatric disease if this was treated would he be more readily open to taking medications. Will attempt to discuss with psychiatry. Family feels patient has had psychiatric issues since he was a child that were never diagnosed. . Code Status: Full Code Plan * Decision Maker: Patient deemed incapacitated per psychiatry to make his own health care decisions, uncertain if he will regain capacity. Single. No children. Mother in a detention with underlying schizophrenia, not capacitated herself. Father . 2 sisters and one brother. 2 sisters, Lizeth and Alejandrina do not wish to serve as healthcare proxy decision makers. Therefore, healthcare proxy decision-making will fall to the patient's brother, Yareli Andrews, he is willing to serve in this role. * FULL CODE - DNR revoked by Yareli (HCP) on 01/23/17. * Goals remain aggressive including dialysis, feeding tube, forced medications if needed. Recommend consideration of feeding tube-- appetite continues to generally be poor, though fluctuates.Eats better when family feeds. * SYMPTOMS: Pain: no obvious signs of pain during my visit. Weakness: debility due to prior stroke. Anorexia/poor appetite: appetite continues to generally be poor, though fluctuates.Eats better when family feeds.albumin 1.3 * Palliative care will continue to follow throughout hospital course to assist with symptom management and clarification of goals as needed. . Time Spent Total Floor Time (mins): 25 (chart review, PE, d/w family, d/w rn) Attestation To help prompt me to consider important information that might be impacting today's encounter and assessment, information from prior notes written by myself or my colleagues may have been "brought forward" into today's note. My signature on this note, however, is an attestation that I personally performed the exam, history, and/or decision-making noted today, and, unless otherwise indicated, the interactions with patient, family, and staff as well as the review of records all occurred today. I also attest that the listed assessment and stated plan reflect my best clinical judgment today based on the combination of historical information, prior notes, and today's exam/ interactions. When time spent is documented, it refers only to time spent today by the signer, or if indicated, combined time spent today by collaborating physician/nurse practitioner. Shauna Cortez Feb 02, 2017 18:16
[2017-02-02 18:24] LABS: HEMATOCRIT 23.9 % (39.0-51.0); REVIEW FLAG FINAL
[2017-02-02] MEDS: ATORVASTATIN 80 MG TAB PO SCH (20:44)
[2017-02-02] MEDS: HYDROmorphone HCL PF 2 MG/ML VIAL IV PUSH PRN (20:50)
[2017-02-02] MEDS: diphenhydrAMINE HCL 25 MG CAP PO PRN (20:50)
[2017-02-02] MEDS: HEPARIN-D5W 25,000 U/250 ML 250 ML IV PRN (20:52)
[2017-02-03] VITALS (19 sets, daily range): BP systolic 113–168; BP diastolic 65–103; PULSE 71–86; RESP 14–36; TEMP 97.9–98.8; O2SAT 82–100
[2017-02-03] MEDS: diphenhydrAMINE HCL 25 MG CAP PO PRN (02:33)
[2017-02-03] MEDS: RIFAMPIN 150 MG CAP PO SCH ×2 (02:34→12:10)
[2017-02-03] MEDS: METOCLOPRAMIDE HCL 10 MG/2 ML VIAL IV PUSH SCH ×3 (02:39→17:30)
[2017-02-03] MEDS: OXACILLIN INJ 2 GM in SODIUM CHLORIDE 0.9% INJ 100 ML IV SCH ×5 (02:40→21:00)
[2017-02-03] MEDS: CHLORHEXIDINE GLUCONATE 2 % 1 PACK (2 CLOTHS) TOP SCH (04:00)
[2017-02-03] MEDS: DILTIAZEM HCL 30 MG TAB PO SCH ×3 (05:00→17:33)
[2017-02-03] MEDS: SODIUM CHLOR 0.45% 1000 ML INJ 1,000 ML IV SCH ×2 (05:01→08:56)
[2017-02-03 05:29] LABS: BASOPHIL # 0.1 TH/MM3 (0-0.2); BASOPHIL % 0.7 % (0.0-2.0); EOSINOPHIL # 0.2 TH/MM3 (0-0.4); EOSINOPHIL % 1.3 % (0.0-4.0); LYMPH % 10.6 % (9.0-44.0); LYMPHOCYTE # 1.6 TH/MM3 (1.0-4.8); MEAN CELL VOLUME 88.7 FL (80.0-100.0); MEAN CORPUSCULAR HEMOGLOBIN 29.5 PG (27.0-34.0); MEAN CORPUSCULAR HGB CONC 33.3 % (32.0-36.0); MONO % 7.9 % (0.0-8.0); NEUT % 79.5 % (16.0-70.0); PLATELET COUNT 238 TH/MM3 (150-450); RED BLOOD COUNT 2.13 MIL/MM3 (4.50-5.90); RED CELL DISTRIBUTION WIDTH 14.9 % (11.6-17.2); WHITE BLOOD COUNT 15.1 TH/MM3 (4.0-11.0)
[2017-02-03 05:38] LABS: APTT (PATIENT) 72.3 SEC (24.3-30.1)
[2017-02-03 05:51] LABS: ANION GAP 7 MEQ/L (5-15); AST (GOT) 56 U/L (15-37); BICARBONATE 21.9 MEQ/L (21.0-32.0); BLOOD UREA NITROGEN 25 MG/DL (7-18); CHLORIDE 105 MEQ/L (98-107); GLOMERULAR FILTRATION RATE 47 ML/MIN (>89); POTASSIUM 4.5 MEQ/L (3.5-5.1); SODIUM (NA) 134 MEQ/L (136-145)
[2017-02-03 05:54] LABS: ALKALINE PHOSPHATASE 63 U/L (45-117); ALT (GPT) 6 U/L (12-78); TOTAL BILIRUBIN ADULT 0.5 MG/DL (0.2-1.0)
[2017-02-03] MEDS: INSULIN NovoLIN REGULAR SUPPLEMENTAL SCALE SQ SCH ×3 (06:00→17:33)
[2017-02-03 06:14] LABS: HEMO FLAGS DIFF FINAL
[2017-02-03 06:16] LABS: HEMATOCRIT 18.9 % (39.0-51.0)
[2017-02-03] MEDS ORDERED: SODIUM CHLOR 0.9% 250 ML INJ 250 ML IV ONE (06:45)
[2017-02-03] MEDS: POTASSIUM PHOSPHATE MONOBASIC 500 MG TAB PO SCH ×2 (08:58→21:00)
[2017-02-03] MEDS: guaiFENesin E.R. 600 MG TAB PO SCH ×2 (08:58→21:01)
[2017-02-03] MEDS: DOCUSATE SODIUM 50 MG/SENNA 8.6 MG TAB PO SCH ×2 (08:58→21:01)
[2017-02-03] MEDS: METOPROLOL TARTRATE 50 MG TAB PO SCH ×2 (08:58→21:01)
[2017-02-03] MEDS: ASPIRIN EC 81 MG TABEC PO SCH (08:58)
[2017-02-03] MEDS: QUEtiapine FUMARATE 25 MG TAB PO SCH ×2 (08:58→21:01)
[2017-02-03] MEDS: SODIUM CHLORIDE 0.9% FLUSH 10 ML FLUSH IV FLUSH SCH ×2 (09:00→21:00)
[2017-02-03] MEDS: CALCIUM CARBONATE 1.25 GM (CA 500 MG) TAB PO SCH ×3 (09:00→17:33)
[2017-02-03] MEDS: INSULIN DETEMIR 100 UNITS/ML VIAL SQ SCH ×2 (09:00→21:00)
[2017-02-03] MEDS: HEPARIN-D5W 25,000 U/250 ML 250 ML IV PRN (09:20)
--- NOTE | 2017-02-03 10:26 | HHI.IDPN ---
Subjective Subjective Remarks Is a 56-year-old male with past medical history significant for chronic kidney disease baseline creatinine 1.8-2, type 2 diabetes, history of CVA with residual left patient is a 56-year-old male, admitted to the hospital complaining of generalized weakness and dizziness for about 1 week. He apparently lives in a senior living and walks with a cane, and has left-sided weakness. There is mention that he had fallen a couple times due to the weakness. There is also mention that he was not having enough by mouth intake, as well as some diarrhea. He denies any abdominal pain, any nausea or vomiting. On initial presentation patient was found to be in atrial flutter with RVR. He also has significant acidosis, and has an elevated potassium and creatinine. Patient was seen by cardiology, and his echo showed normal EF. Patient also was seen by renal, and underwent emergency hemodialysis. His hemodynamics stabilized, and the hemodialysis has been stopped. He has good urine output. Patient has been refusing a lot of his treatment. His had some problem with nausea and vomiting. He has had on and off fevers which are low- grade, however in the last probably 4 days, his fevers have been more persistent. He is complaining of pain on the right side of his trunk. There is also mention that his left upper extremity is swollen. Patient has no central line. He has a condom catheter. Chest x-ray has shown a similar opacities bilaterally. Patient was started on antibiotics, and currently on AZT mycin, cefepime, and vancomycin. Infectious disease consultation has been requested to evaluate the patient. Notes reviewed Temps ok LIGIA negative for endocarditis BC still (+) 01/22-01/29 BC 01/31, 02/01 negative CReatinine better On cardizem and heparin drip Hgb down to 6.3 again, getting transfusion On nasal O2 BP ok Has thrombus in LUE as well as in his LIJ, and LSC Monitor shows atrial fib Antibiotics Oxacillin Rifampin Lines PIV Past Medical History Chronic kidney disease Type 2 diabetes Hypertension Dyslipidemia Previous stroke, with residual L weakness Atrial fibrillation/flutter CAD History of PUD Past Surgical History Throat and arm surgery Allergies: Coded Allergies: No Known Allergies (Unverified , 01/07/17) Objective . Vital Signs Date Time Temp Pulse Resp B/P (MAP) Pulse Ox O2 Delivery O2 Flow Rate FiO2 02/03/17 09:30 75 19 143/86 (105) 98 02/03/17 09:24 98.1 77 20 145/65 100 02/03/17 09:00 78 20 145/85 (105) 82 02/03/17 08:30 76 18 134/75 (94) 02/03/17 08:00 74 18 129/73 (91) 99 02/03/17 06:00 71 02/03/17 04:00 97.9 73 36 113/66 (82) 98 02/03/17 04:00 73 02/03/17 02:00 73 02/03/17 00:00 98.1 74 26 130/78 (95) 100 02/03/17 00:00 74 02/02/17 22:00 75 02/02/17 20:10 100 Nasal Cannula 1.00 02/02/17 20:00 74 02/02/17 20:00 99.2 74 22 125/68 (87) 100 02/02/17 18:00 77 02/02/17 16:00 98.6 73 32 126/71 (89) 83 02/02/17 16:00 73 02/02/17 14:00 74 02/02/17 12:00 98.1 73 22 143/81 (101) 85 02/02/17 12:00 73 02/03/17 02/03/17 02/04/17 15:00 23:00 07:00 Intake Total 50 ml Balance 50 ml Blood Product IV Normal Saline Flush 50 ml . Laboratory Tests Test 02/02/17 05:00 02/02/17 17:08 02/03/17 04:59 White Blood Count 19.3 TH/MM3 15.1 TH/MM3 Red Blood Count 2.62 MIL/MM3 2.13 MIL/MM3 Hemoglobin 7.2 GM/DL 7.5 GM/DL 6.3 GM/DL Hematocrit 22.9 % 23.9 % 18.9 % Mean Corpuscular Volume 87.7 FL 88.7 FL Mean Corpuscular Hemoglobin 27.7 PG 29.5 PG Mean Corpuscular Hemoglobin Concent 31.6 % 33.3 % Red Cell Distribution Width 14.7 % 14.9 % Platelet Count 291 TH/MM3 238 TH/MM3 Mean Platelet Volume 8.8 FL 8.3 FL Neutrophils (%) (Auto) 87.2 % 79.5 % Lymphocytes (%) (Auto) 6.9 % 10.6 % Monocytes (%) (Auto) 4.5 % 7.9 % Eosinophils (%) (Auto) 0.6 % 1.3 % Basophils (%) (Auto) 0.8 % 0.7 % Neutrophils # (Auto) 16.8 TH/MM3 12.0 TH/MM3 Lymphocytes # (Auto) 1.3 TH/MM3 1.6 TH/MM3 Monocytes # (Auto) 0.9 TH/MM3 1.2 TH/MM3 Eosinophils # (Auto) 0.1 TH/MM3 0.2 TH/MM3 Basophils # (Auto) 0.1 TH/MM3 0.1 TH/MM3 CBC Comment AUTO DIFF DIFF FINAL Differential Comment AUTO DIFF CONFIRMED Laboratory Tests Test 02/02/17 05:00 02/03/17 04:59 Blood Urea Nitrogen 24 MG/DL 25 MG/DL Creatinine 1.94 MG/DL 1.83 MG/DL Random Glucose 123 MG/DL 143 MG/DL Total Protein 7.5 GM/DL 7.0 GM/DL Albumin 1.3 GM/DL 1.2 GM/DL Calcium Level 7.7 MG/DL 7.6 MG/DL Alkaline Phosphatase 76 U/L 63 U/L Aspartate Amino Transf (AST/SGOT) 71 U/L 56 U/L Alanine Aminotransferase (ALT/SGPT) 6 U/L 6 U/L Total Bilirubin 0.6 MG/DL 0.5 MG/DL Sodium Level 135 MEQ/L 134 MEQ/L Potassium Level 4.3 MEQ/L 4.5 MEQ/L Chloride Level 106 MEQ/L 105 MEQ/L Carbon Dioxide Level 21.2 MEQ/L 21.9 MEQ/L Anion Gap 8 MEQ/L 7 MEQ/L Estimat Glomerular Filtration Rate 44 ML/MIN 47 ML/MIN Iron Level 31 MCG/DL Total Iron Binding Capacity 130 MCG/DL Percent Iron Saturation 23.8 % Ferritin 1418 NG/ML Microbiology Date/Time Source Procedure Growth Status 02/01/17 06:12 Blood Peripheral Aerobic Blood Culture - Preliminary NO GROWTH IN 1 DAY Resulted 02/01/17 06:12 Blood Peripheral Anaerobic Blood Culture - Preliminary NO GROWTH IN 1 DAY Resulted Imaging Last Impressions Abdomen X-Ray 01/25/17 0000 Signed Impressions: Service Date/Time: Wednesday, January 25, 2017 14:33 - CONCLUSION: Nonspecific, nonobstructive bowel gas pattern. Scot Sung MD Upper Extremity Ultrasound 01/23/17 0000 Signed Impressions: Service Date/Time: Monday, January 23, 2017 17:45 - CONCLUSION: Thrombus identified within the internal jugular, subclavian, and the basilic veins. Jeyson Luciano MD Chest X-Ray 01/21/17 0000 Signed Impressions: Service Date/Time: Saturday, January 21, 2017 22:42 - CONCLUSION: New hazy opacity in both lungs with concern for ovarian edema and congestive heart failure. Jose Espinal MD Head CT 01/10/17 1257 Signed Impressions: Service Date/Time: Tuesday, January 10, 2017 13:32 - CONCLUSION: No acute disease. Jermaine Malone Jr., MD Renal Ultrasound 01/10/17 0000 Signed Impressions: Service Date/Time: Tuesday, January 10, 2017 17:01 - CONCLUSION: Normal examination. Jermaine Malone Jr., MD Physical Exam GENERAL: Awake and alert, not in respiratory distress. SKIN: Warm and dry. No generalized rash, no ecchymoses and no evidence of embolic lesions. HEAD: Atraumatic. Normocephalic. No temporal wasting, or tenderness. EYES: [place] conjunctiva. No petechia or hemorrhage. Pupils equal, round and reactive to light. Extraocular movements full and intact. No scleral icterus. No injection or drainage. EARS, NOSE AND THROAT: Nose without bleeding or purulent nasal discharge. No sinus tenderness. Moist mucosa NECK: Trachea midline. Supple and not tender, no meningeal signs. Previous vascath site looks ok, dry CARDIOVASCULAR: Tachycardic, irregular rate and rhythm. No murmurs, rubs or gallops heard RESPIRATORY: Clear to auscultation. Breath sounds equal bilaterally. No rales , wheezing or rhonchi, decreased at the bases ABDOMEN: Soft, Not tender, not distended. No guarding or rebound. Bowel sounds present and normoactive. No organomegaly. EXTREMITIES: min BLE edema, no cyanosis. LUE is swollen : Some ulcers in scrotum and penile shaft NEUROLOGICAL: Awake and alert. L side plegic PSYCHIATRIC: calm, cooperative this morning LINE: No evidence of infection Assessment & Plan Remarks IMPRESSION Sepsis with MSSA - had vascath placed 01/10, removed 01/15 - has DVT LUE including LIJ and LSC, and previously had vascath and suspicious for infected thrombophlebitis - has basilar opacities, ?fluid; not coughing or congested, less likely PNA - BC still (+) - has flank pain, ?another focus/seeding Renal failure, creatinine has improved and has good UO Previous CVA with left sided weakness Atrial fib with RVR Leukocytosis, improving PLAN Continue Oxacillin Continue Rifampin Follow C/S He will need 6 weeks IV Abx from date of last (+) BC - if no other new (+) BC, anticipated end date is Mar 11 Labs while on Abx: CBC, creat, CBC Follow CBC Monitor progress D/W Kimi Pal MD Feb 03, 2017 10:26
--- NOTE | 2017-02-03 12:18 | HHI.NPPN ---
Subjective History of Present Illness 56-year-old male with past medical history of chronic kidney disease, diabetes mellitus, history of cerebrovascular accident with hemiparesis, ischemic heart disease, hypertension, atrial fibrillation who came to the hospital with generalized weakness and dizziness. I was called to see the patient because of very high BUN and creatinine, metabolic acidosis and hyperkalemia. The patient has known history of chronic kidney disease and his baseline creatinine seems to me in the range of 1.6 to 2.2. Additional Remarks Patient is more awake , not in distress. Review of Systems General Constitutional: Fatigue Cardiovascular Cardiac: [id number] Objective Data Data 02/03/17 02/04/17 19:00 07:00 Intake Total 625 ml Balance 625 ml IV Total 100 ml Packed Cells 400 ml Blood Product IV Normal Saline Flush 125 ml Vital Signs Date Time Temp Pulse Resp B/P (MAP) Pulse Ox O2 Delivery O2 Flow Rate FiO2 02/03/17 11:54 98.4 77 20 161/92 100 02/03/17 09:30 75 19 143/86 (105) 98 02/03/17 09:24 98.1 77 20 145/65 100 02/03/17 09:00 78 20 145/85 (105) 82 02/03/17 08:30 76 18 134/75 (94) 02/03/17 08:00 74 02/03/17 08:00 74 18 129/73 (91) 99 02/03/17 06:00 71 02/03/17 04:00 97.9 73 36 113/66 (82) 98 02/03/17 04:00 73 02/03/17 02:00 73 02/03/17 00:00 98.1 74 26 130/78 (95) 100 02/03/17 00:00 74 02/02/17 22:00 75 02/02/17 20:10 100 Nasal Cannula 1.00 02/02/17 20:00 74 02/02/17 20:00 99.2 74 22 125/68 (87) 100 02/02/17 18:00 77 02/02/17 16:00 98.6 73 32 126/71 (89) 83 02/02/17 16:00 73 02/02/17 14:00 74 -: 02/03/17 0459 02/03/17 0459 Physical Exam General Appearance: No Acute Distress, Comfortable, Anxious Throat Throat Exam: Oral Mucosa [place] & Moist Pulmonary Resp Exam: Breath Sounds Equal, No Distress, Rhonchi, Decreased Bases, Diminished Breath Sounds Cardiology CV Exam: Arrhythmia Gastrointestinal/Abdomen GI Exam: Soft, Non-Tender, Bowel Sounds Present Extremeties Extremities Exam: Trace Edema Neurologic Neuro Exam: Alert, Awake Assessment/Plan Assessment Summary: ABNER/Acute Renal Failure, CKD Stage III Electrolyte Assessment: Hyperkalemia, Hypocalcemia, Metabolic Acidosis Problem List: (1) History of CVA (cerebrovascular accident) ICD Codes: Z86.73 - Personal history of transient ischemic attack (TIA), and cerebral infarction without residual deficits Status: Chronic (2) HTN (hypertension) ICD Codes: I10 - Essential (primary) hypertension Status: Chronic (3) Diabetes ICD Codes: E11.9 - Type 2 diabetes mellitus without complications Status: Acute (4) Metabolic acidemia ICD Codes: E87.2 - Acidosis (5) Hyperkalemia ICD Codes: E87.5 - Hyperkalemia Status: Acute (6) Acute renal failure ICD Codes: N17.9 - Acute kidney failure, unspecified Status: Acute Plan Patient has chronic kidney disease and develop ABNER. Also had metabolic acidosis and Hyperkalemia. Patient has HD 1 session then ARF resolved ATN resolving 1/2 NS at 84 cc/hr dc change to NS at 42 cc/hr as sodium lower Creatinine 1.8 better with nutrition iron studies high Ferritin getting PRBC Afib Cardiology LIGIA negative MSSA on Oxacillin follow BMP Problem Qualifiers (1) HTN (hypertension): Qualified Codes: I10 - Essential (primary) hypertension (2) Diabetes: (3) Acute renal failure: Qualified Codes: N17.9 - Acute kidney failure, unspecified Parth Ruiz MD Feb 03, 2017 12:18
[2017-02-03] MEDS: SODIUM CHLOR 0.9% 1000 ML INJ 1,000 ML IV SCH (12:30)
--- NOTE | 2017-02-03 12:41 | HHI.PR ---
Subjective Remarks HAS MSSA ON OXACILLIN BEING TRANSFUSED 2 UNITS PRBC NEEDS TO TRANSITION OFF CARDIZEM DRIP SWITCH TO PO DW RN AND PT PT AND OT EVAL AND TREAT Objective Vitals Vital Signs Date Time Temp Pulse Resp B/P (MAP) Pulse Ox O2 Delivery O2 Flow Rate FiO2 02/03/17 11:54 98.4 77 20 161/92 100 02/03/17 09:30 75 19 143/86 (105) 98 02/03/17 09:24 98.1 77 20 145/65 100 02/03/17 09:00 78 20 145/85 (105) 82 02/03/17 08:30 76 18 134/75 (94) 02/03/17 08:00 74 02/03/17 08:00 74 18 129/73 (91) 99 02/03/17 06:00 71 02/03/17 04:00 97.9 73 36 113/66 (82) 98 02/03/17 04:00 73 02/03/17 02:00 73 02/03/17 00:00 98.1 74 26 130/78 (95) 100 02/03/17 00:00 74 02/02/17 22:00 75 02/02/17 20:10 100 Nasal Cannula 1.00 02/02/17 20:00 74 02/02/17 20:00 99.2 74 22 125/68 (87) 100 02/02/17 18:00 77 02/02/17 16:00 98.6 73 32 126/71 (89) 83 02/02/17 16:00 73 02/02/17 14:00 74 I/O 02/02/17 02/02/17 02/02/17 02/03/17 02/03/17 02/03/17 07:00 15:00 23:00 07:00 15:00 23:00 Intake Total 1415 ml 100 ml 200 ml 2720 ml 625 ml Output Total 800 ml 450 ml 800 ml Balance 615 ml 100 ml -250 ml 1920 ml 625 ml Intake Oral 240 ml IV Total 1175 ml 100 ml 200 ml 2720 ml 100 ml Packed Cells 400 ml Blood Product IV Normal Saline Flush 125 ml Output Urine Total 800 ml 450 ml 800 ml # Bowel Movements 0 0 0 Result Diagram: 02/03/17 0459 02/03/17 0459 Other Results Laboratory Tests Test 02/01/17 06:12 02/01/17 09:00 02/02/17 05:00 02/02/17 11:40 White Blood Count 18.0 TH/MM3 19.3 TH/MM3 Red Blood Count 2.25 MIL/MM3 2.62 MIL/MM3 Hemoglobin 6.4 GM/DL 7.2 GM/DL Hematocrit 19.5 % 22.9 % Mean Corpuscular Volume 86.6 FL 87.7 FL Mean Corpuscular Hemoglobin 28.3 PG 27.7 PG Mean Corpuscular Hemoglobin Concent 32.7 % 31.6 % Red Cell Distribution Width 14.7 % 14.7 % Platelet Count 272 TH/MM3 291 TH/MM3 Mean Platelet Volume 8.2 FL 8.8 FL Neutrophils (%) (Auto) 85.7 % 87.2 % Lymphocytes (%) (Auto) 7.5 % 6.9 % Monocytes (%) (Auto) 5.7 % 4.5 % Eosinophils (%) (Auto) 0.9 % 0.6 % Basophils (%) (Auto) 0.2 % 0.8 % Neutrophils # (Auto) 15.4 TH/MM3 16.8 TH/MM3 Lymphocytes # (Auto) 1.3 TH/MM3 1.3 TH/MM3 Monocytes # (Auto) 1.0 TH/MM3 0.9 TH/MM3 Eosinophils # (Auto) 0.2 TH/MM3 0.1 TH/MM3 Basophils # (Auto) 0.0 TH/MM3 0.1 TH/MM3 CBC Comment DIFF FINAL AUTO DIFF Differential Comment AUTO DIFF CONFIRMED Activated Partial Thromboplast Time 60.8 SEC 62.6 SEC 64.1 SEC 65.1 SEC Blood Urea Nitrogen 27 MG/DL 24 MG/DL Creatinine 2.33 MG/DL 1.94 MG/DL Random Glucose 115 MG/DL 123 MG/DL Total Protein 6.8 GM/DL 7.5 GM/DL Albumin 1.2 GM/DL 1.3 GM/DL Calcium Level 7.3 MG/DL 7.7 MG/DL Alkaline Phosphatase 78 U/L 76 U/L Aspartate Amino Transf (AST/SGOT) 56 U/L 71 U/L Alanine Aminotransferase (ALT/SGPT) 7 U/L 6 U/L Total Bilirubin 0.6 MG/DL 0.6 MG/DL Sodium Level 135 MEQ/L 135 MEQ/L Potassium Level 4.2 MEQ/L 4.3 MEQ/L Chloride Level 106 MEQ/L 106 MEQ/L Carbon Dioxide Level 21.5 MEQ/L 21.2 MEQ/L Anion Gap 8 MEQ/L 8 MEQ/L Estimat Glomerular Filtration Rate 35 ML/MIN 44 ML/MIN Protein Corrected Calcium 7.5 MG/DL Ammonia 30 MCMOL/L Iron Level 31 MCG/DL Total Iron Binding Capacity 130 MCG/DL Percent Iron Saturation 23.8 % Ferritin 1418 NG/ML Test 02/02/17 17:08 02/03/17 04:59 Hemoglobin 7.5 GM/DL 6.3 GM/DL Hematocrit 23.9 % 18.9 % White Blood Count 15.1 TH/MM3 Red Blood Count 2.13 MIL/MM3 Mean Corpuscular Volume 88.7 FL Mean Corpuscular Hemoglobin 29.5 PG Mean Corpuscular Hemoglobin Concent 33.3 % Red Cell Distribution Width 14.9 % Platelet Count 238 TH/MM3 Mean Platelet Volume 8.3 FL Neutrophils (%) (Auto) 79.5 % Lymphocytes (%) (Auto) 10.6 % Monocytes (%) (Auto) 7.9 % Eosinophils (%) (Auto) 1.3 % Basophils (%) (Auto) 0.7 % Neutrophils # (Auto) 12.0 TH/MM3 Lymphocytes # (Auto) 1.6 TH/MM3 Monocytes # (Auto) 1.2 TH/MM3 Eosinophils # (Auto) 0.2 TH/MM3 Basophils # (Auto) 0.1 TH/MM3 CBC Comment DIFF FINAL Differential Comment Activated Partial Thromboplast Time 72.3 SEC Blood Urea Nitrogen 25 MG/DL Creatinine 1.83 MG/DL Random Glucose 143 MG/DL Total Protein 7.0 GM/DL Albumin 1.2 GM/DL Calcium Level 7.6 MG/DL Alkaline Phosphatase 63 U/L Aspartate Amino Transf (AST/SGOT) 56 U/L Alanine Aminotransferase (ALT/SGPT) 6 U/L Total Bilirubin 0.5 MG/DL Sodium Level 134 MEQ/L Potassium Level 4.5 MEQ/L Chloride Level 105 MEQ/L Carbon Dioxide Level 21.9 MEQ/L Anion Gap 7 MEQ/L Estimat Glomerular Filtration Rate 47 ML/MIN Imaging Last Impressions Abdomen/Pelvis CT 01/28/17 0000 Signed Impressions: Service Date/Time: Saturday, January 28, 2017 20:18 - CONCLUSION: 1. Bilateral pleural effusions and bibasilar infiltrates. 2. Cardiomegaly. 3. Subcutaneous edema. 4. Umbilical hernia. Jermaine Malnoe Jr., MD Abdomen X-Ray 01/25/17 0000 Signed Impressions: Service Date/Time: Wednesday, January 25, 2017 14:33 - CONCLUSION: Nonspecific, nonobstructive bowel gas pattern. Scot Sung MD Upper Extremity Ultrasound 01/23/17 0000 Signed Impressions: Service Date/Time: Monday, January 23, 2017 17:45 - CONCLUSION: Thrombus identified within the internal jugular, subclavian, and the basilic veins. Jeyson Luciano MD Chest X-Ray 01/21/17 0000 Signed Impressions: Service Date/Time: Saturday, January 21, 2017 22:42 - CONCLUSION: New hazy opacity in both lungs with concern for ovarian edema and congestive heart failure. Jose Espinal MD Head CT 01/10/17 1257 Signed Impressions: Service Date/Time: Tuesday, January 10, 2017 13:32 - CONCLUSION: No acute disease. Jermaine Malone Jr., MD Renal Ultrasound 01/10/17 0000 Signed Impressions: Service Date/Time: Tuesday, January 10, 2017 17:01 - CONCLUSION: Normal examination. Jermaine Malone Jr., MD Objective Remarks GENERAL: AWAKE ALERT AND ORIENTED TALKATIVE AND COOPERATIVE SKIN: Warm and dry. HEAD: Atraumatic. Normocephalic. EYES: Pupils equal and round. No scleral icterus. No injection or drainage. EOMI ENT: No nasal bleeding or discharge. Mucous membranes pink and moist. TONGUE IS MIDLINE NECK: Trachea midline. No JVD. SUPPLE CARDIOVASCULAR: IRRegular rate and rhythm. S1, S2 NO S3 OR S4 RESPIRATORY: No accessory muscle use. Clear to auscultation. Breath sounds equal bilaterally. GASTROINTESTINAL: Abdomen soft, non-tender, nondistended. Hepatic and splenic margins not palpable. MUSCULOSKELETAL: Extremities without clubbing, cyanosis, or edema. No obvious deformities. NEUROLOGICAL: Awake and alert. No obvious cranial nerve deficits. Motor grossly within normal limits. Five out of 5 muscle strength in the arms and legs. Normal speech. PSYCHIATRIC: Appropriate mood and affect; insight and judgment normal.SOME CONFUSION Procedures LIGIA Medications and IVs Current Medications Meclizine HCl (Antivert) 25 mg ONCE ONCE PO Last administered on 01/10/17 13 :42; Start 01/10/17 at 13:00; Stop 01/10/17 at 13:01; Status DC Sodium Chloride (NS Flush) 2 ml UNSCH PRN IVF FLUSH AFTER USING IV ACCESS; Start 01/10/17 at 13:00; Stop 01/10/17 at 22:25; Status DC Acetaminophen (Tylenol) 650 mg ONCE ONCE PO Last administered on 01/10/17 14 :07; Start 01/10/17 at 14:00; Stop 01/10/17 at 14:01; Status DC Insulin Human Regular (NovoLIN R INJ) 10 units ONCE ONCE IV PUSH Last administered on 01/10/17 16:14; Start 01/10/17 at 16:00; Stop 01/10/17 at 16 :01; Status DC Dextrose (D50w (Syr) Inj) 25 ml ONCE ONCE IV PUSH Last administered on 16:10; Start 01/10/17 at 16:00; Stop 01/10/17 at 16:01; Status DC Calcium Gluconate (Calcium Gluconate Inj) 1 gm ONCE ONCE IV PUSH Last administered on 01/10/17 16:09; Start 01/10/17 at 16:00; Stop 01/10/17 at 16 :01; Status DC Sodium Polystyrene Sulfonate (Kayexalate Liq) 15 gm ONCE ONCE PO ; Start 01/10 at 16:00; Stop 01/10/17 at 16:01; Status DC Sodium Bicarbonate 200 meq/Sodium Chloride 1,200 ml @ 100 mls/hr Q12H IV ; Start 01/10/17 at 16:15; Stop 01/11/17 at 14:47; Status DC Sodium Chloride 1,000 ml @ 999 mls/hr BOLUS ONCE IV Last administered on 16:43; Start 01/10/17 at 16:15; Stop 01/10/17 at 17:15; Status DC Sodium Chloride 1,000 ml @ 999 mls/hr BOLUS ONCE IV Last administered on 16:44; Start 01/10/17 at 16:15; Stop 01/10/17 at 17:15; Status DC Sodium Bicarbonate (Sodium Bicarbonate 8.4% Inj) 50 meq STK-MED ONCE .ROUTE ; Start 01/10/17 at 16:23; Stop 01/10/17 at 16:43; Status DC Sodium Bicarbonate 200 meq/Sterile Water 1,050 ml @ 150 mls/hr Q7H IV Last administered on 01/11/17 08:22; Start 01/10/17 at 16:45; Stop 01/11/17 at 14 :47; Status DC Sodium Chloride 1,000 ml @ 999 mls/hr BOLUS ONCE IV Last administered on 17:23; Start 01/10/17 at 17:00; Stop 01/10/17 at 18:00; Status DC Sodium Chloride 1,000 ml @ 999 mls/hr BOLUS ONCE IV Last administered on 17:23; Start 01/10/17 at 17:00; Stop 01/10/17 at 18:00; Status DC Sodium Chloride 1,000 ml @ 999 mls/hr BOLUS ONCE IV Last administered on 17:40; Start 01/10/17 at 17:00; Stop 01/10/17 at 18:00; Status DC Acetaminophen (Tylenol) 650 mg Q6H PRN PO PAIN SCALE 1 TO 4 Last administered on 02/01/17 00:12; Start 01/10/17 at 17:00 Albuterol Sulfate (Proair Hfa Inh) 2 puff Q6H PRN INH SHORTNESS OF BREATH; Start 01/10/17 at 17:00 Atorvastatin Calcium (Lipitor) 80 mg HS PO Last administered on 02/02/17 20: 44; Start 01/10/17 at 21:00 Nitroglycerin (Nitrostat Sl) 0.4 mg Q3H PRN SL CHEST PAIN; Start 01/10/17 at 17:00 Aspirin (Ecotrin Ec) 81 mg DAILY PO Last administered on 02/03/17 08:58; Start 01/10/17 at 17:00 Heparin Sodium/ Dextrose 250 ml @ 10 mls/hr TITRATE PRN IV Coagulation management Last administered on 01/11/17 01:03; Start 01/10/17 at 17:00; Stop 01/11/17 at 17:15; Status DC Insulin Aspart (NovoLOG SUPPLEMENTAL SCALE) 1 Q4H SQ Last administered on 04:39; Start 01/10/17 at 17:00; Stop 01/23/17 at 08:38; Status DC Sodium Chloride (NS Flush) 2 ml UNSCH PRN IV FLUSH FLUSH AFTER USING IV ACCESS ; Start 01/10/17 at 17:15; Stop 01/11/17 at 14:50; Status DC Sodium Chloride (NS Flush) 2 ml BID IV FLUSH Last administered on 02/02/17 20 :44; Start 01/10/17 at 21:00 Pantoprazole Sodium (Protonix) 40 mg DAILY PO ; Start 01/11/17 at 09:00; Stop 01/11/17 at 17:15; Status DC Miscellaneous Information 1 Q361D XX ; Start 01/10/17 at 17:15 Chlorhexidine Gluconate (Chlorhexidine 2% Cloth) 3 pack Taper DAILY@04 TOP Last administered on 02/03/17 04:00; Start 01/11/17 at 04:00; Stop 01/07/18 at 03:59 Chlorhexidine Gluconate (Chlorhexidine 2% Cloth) 3 pack UNSCH PRN TOP HYGIENIC CARE; Start 01/10/17 at 17:15 Senna/Docusate Sodium (Afia-Colace) 1 tab BID PO Last administered on 08:58; Start 01/10/17 at 21:00 Magnesium Hydroxide (Milk Of Magnesia Liq) 30 ml Q12H PRN PO Mild constipation ; Start 01/10/17 at 17:15 Sennosides (Senokot) 17.2 mg Q12H PRN PO Moderate constipation; Start at 17:15 Bisacodyl (Dulcolax Supp) 10 mg DAILY PRN RECTAL SEVERE CONSITIPATION; Start 01/10/17 at 17:15 Lactulose (Lactulose Liq) 30 ml DAILY PRN PO SEVERE CONSITIPATION; Start 01/10 at 17:15 Sodium Bicarbonate 0 ml @ As Directed STK-MED ONCE .ROUTE ; Start 01/10/17 at 17:23; Stop 01/10/17 at 17:24; Status DC Sodium Bicarbonate (Sodium Bicarbonate 8.4% Inj) 50 meq STK-MED ONCE .ROUTE ; Start 01/10/17 at 17:23; Stop 01/10/17 at 17:24; Status DC Sodium Chloride 1,000 ml @ 0 mls/hr Q0M PRN OTHER For Prime & Rinse Back Last administered on 01/10/17 22:05; Start 01/10/17 at 17:47; Stop 02/03/17 at 12 :19; Status DC Heparin Sodium (Porcine) (Heparin Inj) 8,000 units UNSCH PRN IV FLUSH WITH DIALYSIS; Start 01/10/17 at 18:00; Stop 01/24/17 at 11:56; Status DC Sodium Chloride 1,000 ml @ 200 mls/hr Q5H PRN IV WITH DIALYSIS; Start at 17:47; Stop 02/03/17 at 12:19; Status DC Sodium Chloride 1,000 ml @ 0 mls/hr Q0M PRN OTHER WITH DIALYSIS; Start at 17:47; Stop 02/03/17 at 12:19; Status DC Mannitol (Mannitol Inj) 12.5 gm UNSCH PRN IV WITH DIALYSIS; Start 01/10/17 at 18:00; Stop 02/03/17 at 12:19; Status DC Albumin Human 100 ml @ 60 mls/hr UNSCH PRN IV WITH DIALYSIS; Start 01/10/17 at 18:00; Stop 02/03/17 at 12:19; Status DC Sodium Chloride (NS Flush) 5 ml UNSCH PRN IV FLUSH WITH DIALYSIS; Start at 18:00; Stop 02/03/17 at 12:19; Status DC Heparin Sodium (Porcine) (Heparin Inj) UNSCH PRN .XX WITH DIALYSIS; Start at 18:00; Stop 02/03/17 at 12:19; Status DC Gentamicin Sulfate (Gentamicin (Dialysis) Inj) 20 mg UNSCH PRN OTHER WITH DIALYSIS Last administered on 01/10/17 22:03; Start 01/10/17 at 18:00; Stop 02/03/17 at 12:19; Status DC Ondansetron HCl (Zofran Inj) 4 mg UNSCH PRN IV PUSH WITH DIALYSIS Last administered on 01/18/17 08:51; Start 01/10/17 at 18:00; Stop 02/03/17 at 12 :19; Status DC Acetaminophen (Tylenol) 650 mg UNSCH PRN PO for headach, pain, temp > 101F Last administered on 01/30/17 01:51; Start 01/10/17 at 18:00; Stop 02/03/17 at 12:19; Status DC Diphenhydramine HCl (Benadryl) 25 mg UNSCH PRN PO for hives/itching/ anaphylaxis Last administered on 02/03/17 02:33; Start 01/10/17 at 18:00; Stop 02/03/17 at 12:19; Status DC Nitroglycerin (Nitrostat Sl) 0.4 mg UNSCH PRN SL CHEST PAIN; Start 01/10/17 at 18:00; Stop 02/03/17 at 12:19; Status DC Clonidine (Catapres) 0.1 mg UNSCH PRN PO for BP > 180/100 X 2 readings Last administered on 01/15/17 02:07; Start 01/10/17 at 18:00; Stop 02/03/17 at 12 :19; Status DC Gelatin (Gelfoam 12 Mm/7 Mm Top) 1 foam UNSCH PRN TOP SEE LABEL COMMENTS; Start 01/10/17 at 18:00; Stop 02/03/17 at 12:19; Status DC Dextrose (D50w (Vial) Inj) 50 ml UNSCH PRN IV PUSH HYPOGLYCEMIA-SEE COMMENTS Last administered on 01/10/17 18:05; Start 01/10/17 at 22:30; Stop 01/24/17 at 16:15; Status DC Glucagon (Glucagon Inj) 1 mg UNSCH PRN OTHER HYPOGLYCEMIA-SEE COMMENTS; Start 01/10/17 at 22:30; Stop 01/24/17 at 16:15; Status DC Dexmedetomidine HCl 200 mcg/ Sodium Chloride 52 ml @ 5.46 mls/hr TITRATE PRN IV SEDATION Last administered on 01/12/17 14:53; Start 01/11/17 at 00:00 Metoprolol Tartrate (Lopressor) 25 mg Q12HR PO Last administered on 01/15/17 08:48; Start 01/11/17 at 21:00; Stop 01/15/17 at 11:09; Status DC Metoprolol Tartrate (Lopressor Inj) 5 mg Q1HR PRN IV PUSH RAPID HEART RATE Last administered on 01/14/17 21:16; Start 01/11/17 at 11:15; Stop 01/15/17 at 11:09; Status DC Diltiazem HCl 125 mg/Sodium Chloride 125 ml @ 5 mls/hr TITRATE PRN IV Tachycardia Last administered on 01/15/17 10:45; Start 01/11/17 at 17:30; Stop 01/15/17 at 11:11; Status DC Sodium Chloride 1,000 ml @ 84 mls/hr [id number] IV Last administered on 01:04; Start 01/12/17 at 13:00; Stop 01/13/17 at 12:51; Status DC Haloperidol Lactate (Haldol Inj) 5 mg Q4H PRN IV agitation Last administered on 02/02/17 02:54; Start 01/12/17 at 17:00 Diltiazem HCl (Cardizem) 60 mg Q6HR PO Last administered on 01/15/17 07:03; Start 01/13/17 at 06:00; Stop 01/15/17 at 11:09; Status DC Sodium Chloride 38.5 meq/Sterile Water 1,009.625 ml @ 84 mls/hr Q12H2M IV Last administered on 01/22/17 22:46; Start 01/13/17 at 15:00; Stop 01/23/17 at 11: 57; Status DC Metoclopramide HCl (Reglan Inj) 5 mg Q8H PRN IV PUSH NAUSEA OR VOMITING Last administered on 01/14/17 22:57; Start 01/14/17 at 11:15; Stop 01/15/17 at 08 :56; Status DC Potassium Chloride 100 ml @ 50 mls/hr Q2H IV Last administered on 01/14/17 15:19; Start 01/14/17 at 12:00; Stop 01/14/17 at 15:59; Status DC Hydralazine HCl (Apresoline Inj) 20 mg ONCE ONCE IV PUSH Last administered on 01/14/17 22:58; Start 01/14/17 at 23:00; Stop 01/14/17 at 23:01; Status DC Metoclopramide HCl (Reglan Inj) 5 mg Q8H IV PUSH Last administered on 08:59; Start 01/15/17 at 10:00 Hydralazine HCl (Apresoline Inj) 10 mg Q4H PRN IV PUSH SYS BP GREATER THAN 160 MMHG; Start 01/15/17 at 10:00 Potassium Chloride 100 ml @ 100 mls/hr Q1H IV ; Start 01/15/17 at 10:00; Stop 01/15/17 at 10:00; Status DC Potassium Chloride 100 ml @ 50 mls/hr Q2H IV Last administered on 01/16/17 06:11; Start 01/15/17 at 10:00; Status Future Hold Diltiazem HCl 125 mg/Sodium Chloride 125 ml @ 15 mls/hr TITRATE PRN IV Tachycardia Last administered on 01/19/17 00:59; Start 01/15/17 at 17:30; Stop 01/19/17 at 08:01; Status DC Metoprolol Tartrate (Lopressor Inj) 5 mg Q4H IV PUSH Last administered on 01/16 08:48; Start 01/15/17 at 12:00; Stop 01/16/17 at 09:17; Status DC Heparin Sodium (Porcine) (Heparin Inj) 4,000 units NOW STAT IV PUSH ; Start at 11:11; Stop 01/15/17 at 11:12; Status Cancel Heparin Sodium (Porcine) (Heparin Inj) 5,000 units UNSCH PRN IV PUSH APTT LESS THAN 25; Start 01/15/17 at 17:15; Stop 01/24/17 at 11:56; Status DC Heparin Sodium (Porcine) (Heparin Inj) 2,500 units UNSCH PRN IV PUSH APTT 25 TO 39 Last administered on 01/16/17 06:17; Start 01/15/17 at 17:15; Stop 01/24/17 at 11:56; Status DC Heparin Sodium/ Dextrose 250 ml @ 10 mls/hr TITRATE PRN IV Coagulation management; Start 01/15/17 at 11:15; Status Cancel Heparin Sodium (Porcine) (Heparin Inj) 4,000 units NOW STAT IV PUSH Last administered on 01/15/17 15:45; Start 01/15/17 at 15:45; Stop 01/15/17 at 15 :51; Status DC Heparin Sodium/ Dextrose 250 ml @ 10 mls/hr TITRATE PRN IV Coagulation management Last administered on 01/20/17 05:11; Start 01/15/17 at 16:00; Stop 01/20/17 at 08:22; Status DC Clonidine (Catapres-Tts 0.3 Mg Patch.7d) 1 patch Q7D T-DERMAL Last administered on 01/30/17 11:46; Start 01/16/17 at 10:00 Metoprolol Tartrate (Lopressor Inj) 5 mg Q3H IV PUSH Last administered on 01/19 02:31; Start 01/16/17 at 11:00; Stop 01/19/17 at 08:01; Status DC Miscellaneous Information 1 Q7D T-DERMAL Last administered on 01/30/17 10:00 ; Start 01/16/17 at 10:00 Guaifenesin (Mucinex Er) 600 mg BID PO Last administered on 02/03/17 08:58; Start 01/16/17 at 21:00 Magnesium Sulfate/ Dextrose 100 ml @ 100 mls/hr ONCE ONCE IV Last administered on 01/16/17 14:14; Start 01/16/17 at 12:00; Stop 01/16/17 at 12 :59; Status DC Magnesium Sulfate/ Dextrose 100 ml @ 100 mls/hr Q1H IV Last administered on 11:45; Start 01/17/17 at 10:45; Stop 01/17/17 at 12:44; Status DC Calcium Gluconate 1 gm/Sodium Chloride 110 ml @ 110 mls/hr ONCE ONCE IV Last administered on 01/17/17 12:00; Start 01/17/17 at 12:00; Stop 01/17/17 at 12 :59; Status DC Calcium Carbonate (Oscal) 500 mg TID PO Last administered on 02/03/17 12:10; Start 01/17/17 at 13:00 Potassium Phosphate (K-Phos) 500 mg Q12HR PO Last administered on 02/03/17 08 :58; Start 01/17/17 at 14:00 Quetiapine Fumarate (SEROquel) 25 mg BID PO Last administered on 02/03/17 08: 58; Start 01/17/17 at 21:00 Sodium Chloride 500 ml @ 500 mls/hr BOLUS ONCE IV Last administered on 09:00; Start 01/18/17 at 09:00; Stop 01/18/17 at 09:59; Status DC Magnesium Sulfate/ Dextrose 100 ml @ 100 mls/hr ONCE ONCE IV Last administered on 01/18/17 12:48; Start 01/18/17 at 12:30; Stop 01/18/17 at 13 :29; Status DC Calcium Gluconate 1 gm/Dextrose 110 ml @ 110 mls/hr ONCE ONCE IV Last administered on 01/18/17 12:30; Start 01/18/17 at 12:30; Stop 01/18/17 at 13 :29; Status DC Potassium Chloride (KCl) 20 meq ONCE ONCE PO Last administered on 01/18/17 14:00; Start 01/18/17 at 14:00; Stop 01/18/17 at 14:01; Status DC Metoprolol Tartrate (Lopressor) 50 mg Q8HR PO Last administered on 01/29/17 06 :27; Start 01/19/17 at 14:00; Stop 01/29/17 at 13:38; Status DC Diltiazem HCl (Cardizem) 90 mg TID PO Last administered on 01/19/17 18:42; Start 01/19/17 at 09:00; Stop 01/20/17 at 08:22; Status DC Warfarin Sodium (Coumadin) 5 mg DAILY@1600 PO Last administered on 01/19/17 15:43; Start 01/19/17 at 16:00; Stop 01/20/17 at 08:22; Status DC Diltiazem HCl (Cardizem Cd) 300 mg DAILY PO Last administered on 01/22/17 09: 12; Start 01/20/17 at 09:00; Stop 01/23/17 at 11:56; Status DC Labetalol HCl (Trandate Inj) 10 mg Q4H PRN IV PUSH SBP>160, DBP>90 Last administered on 01/20/17 17:27; Start 01/20/17 at 08:30 Magnesium Sulfate/ Dextrose 100 ml @ 100 mls/hr ONCE ONCE IV Last administered on 01/20/17 13:26; Start 01/20/17 at 12:00; Stop 01/20/17 at 12 :59; Status DC Potassium Chloride 100 ml @ 50 mls/hr BOLUS ONCE IV Last administered on 13:27; Start 01/20/17 at 13:00; Stop 01/20/17 at 14:59; Status DC Magnesium Sulfate/ Dextrose 100 ml @ 100 mls/hr ONCE ONCE IV Last administered on 01/21/17 17:48; Start 01/21/17 at 17:15; Stop 01/21/17 at 18:14 ; Status DC Cefepime HCl 1000 mg/Sodium Chloride 100 ml @ 200 mls/hr Q12H IV Last administered on 01/24/17 19:39; Start 01/22/17 at 09:00; Stop 01/24/17 at 20:07 ; Status DC Azithromycin 250 mg/Sodium Chloride 250 ml @ 250 mls/hr Q24H IV Last administered on 01/23/17 11:20; Start 01/22/17 at 10:00; Stop 01/23/17 at 13:29 ; Status DC Pharmacy Profile Note 0 ml @ 0 mls/hr UNSCH OTHER ; Start 01/23/17 at 05:45; Stop 01/23/17 at 10:20; Status DC Vancomycin HCl 1250 mg/Sodium Chloride 262.5 ml @ 250 mls/hr NOW ONCE IV Last administered on 01/23/17 06:39; Start 01/23/17 at 06:00; Stop 01/23/17 at 07:02; Status DC Insulin Detemir (Levemir Inj) 5 units Q12HR SQ Last administered on 02/03/17 09:00; Start 01/23/17 at 09:00 Vancomycin HCl 1250 mg/Sodium Chloride 262.5 ml @ 262.5 mls/ hr ONCE ONCE IV ; Start 01/23/17 at 09:15; Stop 01/23/17 at 10:19; Status DC Pharmacy Profile Note 0 ml @ 0 mls/hr UNSCH OTHER ; Start 01/23/17 at 10:15; Stop 01/24/17 at 20:07; Status DC Diltiazem HCl 125 mg/Sodium Chloride 125 ml @ 5 mls/hr TITRATE PRN IV Tachycardia Last administered on 02/01/17 11:45; Start 01/23/17 at 12:00 Sodium Chloride 1,000 ml @ 84 mls/hr [id number] IV Last administered on 08:56; Start 01/23/17 at 12:00; Stop 02/03/17 at 12:17; Status DC Magnesium Sulfate/ Dextrose 100 ml @ 100 mls/hr ONCE ONCE IV Last administered on 01/23/17 13:12; Start 01/23/17 at 13:00; Stop 01/23/17 at 13:59 ; Status DC Calcium Gluconate (Calcium Gluconate Inj) 1 gm ONCE ONCE IV PUSH ; Start at 12:00; Stop 01/23/17 at 12:01; Status UNV Calcium Gluconate 1 gm/Sodium Chloride 110 ml @ 110 mls/hr ONCE ONCE IV Last administered on 01/23/17 14:14; Start 01/23/17 at 14:00; Stop 01/23/17 at 14:59 ; Status DC Hydromorphone HCl (Dilaudid Pf Inj) 0.5 mg Q4HR PRN IV PUSH SEE LABEL COMMENTS Last administered on 02/02/17 20:50; Start 01/23/17 at 14:45 Hydromorphone HCl (Dilaudid Pf Inj) 0.75 mg Q4HR PRN IV PUSH SEE LABEL COMMENTS Last administered on 01/31/17 14:28; Start 01/23/17 at 14:45 Heparin Sodium/ Dextrose 250 ml @ 5 mls/hr CONTINUOUS IV ; Start 01/24/17 at 12: 00; Stop 01/24/17 at 13:29; Status DC Heparin Sodium/ Dextrose 250 ml @ 18 mls/hr TITRATE PRN IV Coagulation Management Last administered on 02/03/17 09:20; Start 01/24/17 at 12:00 Dextrose (D50w (Vial) Inj) 25 ml UNSCH PRN IV PUSH HYPOGLYCEMIA-SEE COMMENTS; Start 01/24/17 at 16:00 Insulin Human Regular (NovoLIN R SUPPLEMENTAL SCALE) 1 Q6HR SQ Last administered on 02/02/17 23:48; Start 01/24/17 at 18:00 Cefazolin Sodium/ Dextrose 50 ml @ 150 mls/hr Q8H IV Last administered on 01/29 13:05; Start 01/24/17 at 20:00; Stop 01/29/17 at 13:26; Status DC Metoprolol Tartrate (Lopressor Inj) 5 mg ONCE ONCE IV PUSH Last administered on 01/26/17 06:12; Start 01/26/17 at 06:00; Stop 01/26/17 at 06:01; Status DC Calcium Gluconate 1 gm/Dextrose 110 ml @ 110 mls/hr ONCE ONCE IV Last administered on 01/28/17 11:35; Start 01/28/17 at 11:30; Stop 01/28/17 at 12:29 ; Status DC Rifampin (Rifampin) 300 mg Q12H PO Last administered on 02/03/17 12:10; Start 01/28/17 at 14:00 Calcium Gluconate 1 gm/Dextrose 110 ml @ 110 mls/hr ONCE ONCE IV Last administered on 01/29/17 13:04; Start 01/29/17 at 10:30; Stop 01/29/17 at 11:29 ; Status DC Cefazolin Sodium/ Dextrose 50 ml @ 150 mls/hr Q12H IV Last administered on 11:46; Start 01/30/17 at 00:00; Stop 01/30/17 at 15:01; Status DC Metoprolol Tartrate (Lopressor) 100 mg BID PO Last administered on 02/03/17 08:58; Start 01/29/17 at 21:00 Calcium Gluconate 1 gm/Dextrose 110 ml @ 110 mls/hr ONCE ONCE IV Last administered on 01/30/17 08:38; Start 01/30/17 at 08:00; Stop 01/30/17 at 08 :59; Status DC Diltiazem HCl (Cardizem) 30 mg Q6HR PO Last administered on 02/03/17 12:10; Start 01/30/17 at 12:00 Oxacillin Sodium 2 gm/Sodium Chloride 100 ml @ 200 mls/hr Q4H IV ; Start 01/30 at 15:00; Stop 01/30/17 at 15:11; Status DC Oxacillin Sodium 2 gm/Sodium Chloride 100 ml @ 200 mls/hr Q4H IV Last administered on 02/03/17 12:10; Start 01/30/17 at 16:00 Calcium Gluconate 1 gm/Sodium Chloride 110 ml @ 110 mls/hr NOW ONCE IV Last administered on 01/31/17 08:43; Start 01/31/17 at 07:00; Stop 01/31/17 at 07 :59; Status DC Calcium Gluconate 1 gm/Sodium Chloride 100 ml @ 100 mls/hr ONCE ONCE IV ; Start 01/31/17 at 07:45; Stop 01/31/17 at 08:44; Status Cancel Calcium Gluconate 1 gm/Sodium Chloride 100 ml @ 100 mls/hr ONCE ONCE IV Last administered on 02/01/17t 10:25; Start 02/01/17 at 09:00; Stop 02/01/17 at 09 :59; Status DC Sodium Chloride 250 ml @ 15 mls/hr ONCE ONCE IV ; Start 02/01/17 at 07:45; Stop 02/02/17 at 00:24; Status DC Sodium Chloride 250 ml @ 15 mls/hr ONCE ONCE IV Last administered on 09:30; Start 02/03/17 at 06:45; Stop 02/03/17 at 23:24 Sodium Chloride 1,000 ml @ 42 mls/hr [id number] IV ; Start 02/03/17 at 12:30 A/P Problem List: (1) Acute on chronic kidney failure ICD Code: N17.9 - Acute kidney failure, unspecified; N18.9 - Chronic kidney disease, unspecified (2) Combined metabolic and respiratory acidosis (3) Acute metabolic encephalopathy ICD Code: G93.41 - Metabolic encephalopathy (4) NSTEMI (non-ST elevated myocardial infarction) ICD Code: I21.4 - Non-ST elevation (NSTEMI) myocardial infarction (5) Hyperkalemia ICD Code: E87.5 - Hyperkalemia Status: Acute (6) Metabolic acidemia ICD Code: E87.2 - Acidosis (7) History of CVA (cerebrovascular accident) ICD Code: Z86.73 - Personal history of transient ischemic attack (TIA), and cerebral infarction without residual deficits Status: Chronic (8) Diabetes ICD Code: E11.9 - Type 2 diabetes mellitus without complications Status: Acute (9) HTN (hypertension) ICD Code: I10 - Essential (primary) hypertension Status: Chronic Assessment and Plan 56-year-old male admitted secondary to bacteremia, fever, A. fib RVR, left arm DVT, encephalopathy. Labs reviewed. Hemoglobin level dropped. 2 units packed red blood cells transfused 02/01/17. Calcium level is low and supplementation provided. Continue to monitor renal function and white blood cell count. Labs ordered for further monitoring. WILL BE TRANSFUSED 2 MORE UNITS PRBC TODAY Labs reviewed. Follow Hgb as anemia is still exhibiting a progressive decline. Labs ordered for further monitoring. Acute blood loss anemia Obtain stool occult blood study Transfuse 2 units packed red blood cells on 02/01/17 Monitor hemoglobin TRANSFUSE 2 UNITS PRBC 02-03 Acute Metabolic Encephalopathy Agitated Delirium History of Previous CVA with left hemiparesis Delirium Less oriented today Follow clinically Check ammonia level Decision-making capacity does not exist in this patient Severe combined Metabolic and respiratory acidosis Resolved Continue bronchodilators Continue incentive spirometry Continue mucolytic A flutter/fibrillation with RVR Elevated troponin Coronary artery disease By mouth Cardizem continued-SWITCH OFF IV Continue metoprolol Cardiology following IV heparin Left upper extremity DVT Continue IV heparin Follow clinically Diabetes mellitus type 2 Follow blood sugars Insulin sliding scale Diabetic diet Sepsis Resolved MSSA bacteremia Suspected infected thrombophlebitis Continue cefazolin Continue rifampin LIGIA showed no vegetations ID following Continue to follow cultures Acute kidney injury Nephrology following Dialysis if needed Monitor renal function Monitor electrolytes DVT prophylaxis IV heparin Discharge Planning NEEDS SNF AT DC IF ABLE TO GO Problem Qualifiers (1) Diabetes: (2) HTN (hypertension): Qualified Codes: I10 - Essential (primary) hypertension Mt Kemp DO Feb 03, 2017 12:40
[2017-02-03] MEDS: hydrALAZINE HCL 20 MG/ML VIAL IV PUSH PRN (17:56)
[2017-02-03] MEDS: NYSTATIN 100,000 U/GM PWD 15 GM BTL TOPICAL SCH (21:00)
[2017-02-03] MEDS: ATORVASTATIN 80 MG TAB PO SCH (21:01)
[2017-02-04] VITALS (21 sets, daily range): BP systolic 141–177; BP diastolic 84–104; PULSE 78–90; RESP 0–27; TEMP 98.2–99.1; O2SAT 95–100
[2017-02-04] MEDS: OXACILLIN INJ 2 GM in SODIUM CHLORIDE 0.9% INJ 100 ML IV SCH ×6 (00:14→21:55)
[2017-02-04] MEDS: DILTIAZEM HCL 30 MG TAB PO SCH ×4 (00:14→18:08)
[2017-02-04] MEDS: RIFAMPIN 150 MG CAP PO SCH ×2 (00:15→12:33)
[2017-02-04] MEDS: METOCLOPRAMIDE HCL 10 MG/2 ML VIAL IV PUSH SCH ×3 (00:15→18:08)
[2017-02-04] MEDS: INSULIN NovoLIN REGULAR SUPPLEMENTAL SCALE SQ SCH ×4 (05:02→18:00)
[2017-02-04] MEDS: CHLORHEXIDINE GLUCONATE 2 % 1 PACK (2 CLOTHS) TOP SCH (05:28)
[2017-02-04] MEDS: HALOPERIDOL LACTATE 5 MG/ML AMP IV PRN (05:40)
[2017-02-04 07:17] LABS: APTT (PATIENT) 60.5 SEC (24.3-30.1)
[2017-02-04 07:26] LABS: AUTOMATED NEUTROPHIL # 10.9 TH/MM3 (1.8-7.7); BASOPHIL % 0.3 % (0.0-2.0); EOSINOPHIL # 0.1 TH/MM3 (0-0.4); HEMATOCRIT 24.2 % (39.0-51.0); LYMPHOCYTE # 1.1 TH/MM3 (1.0-4.8); MEAN CELL VOLUME 85.8 FL (80.0-100.0); MEAN CORPUSCULAR HEMOGLOBIN 28.9 PG (27.0-34.0); MEAN CORPUSCULAR HGB CONC 33.7 % (32.0-36.0); NEUT % 81.7 % (16.0-70.0); PLATELET COUNT 240 TH/MM3 (150-450); RED BLOOD COUNT 2.82 MIL/MM3 (4.50-5.90); RED CELL DISTRIBUTION WIDTH 15.7 % (11.6-17.2); WHITE BLOOD COUNT 13.4 TH/MM3 (4.0-11.0)
[2017-02-04] MEDS: HYDROmorphone HCL PF 2 MG/ML VIAL IV PUSH PRN ×2 (07:34→16:05)
[2017-02-04 07:37] LABS: ANION GAP 8 MEQ/L (5-15); AST (GOT) 57 U/L (15-37); BICARBONATE 21.7 MEQ/L (21.0-32.0); BLOOD UREA NITROGEN 21 MG/DL (7-18); CHLORIDE 105 MEQ/L (98-107); GLOMERULAR FILTRATION RATE 49 ML/MIN (>89); MAGNESIUM 1.3 MG/DL (1.5-2.5); POTASSIUM 4.2 MEQ/L (3.5-5.1); SODIUM (NA) 135 MEQ/L (136-145)
[2017-02-04 07:38] LABS: ALT (GPT) 6 U/L (12-78)
[2017-02-04 07:40] LABS: ALKALINE PHOSPHATASE 61 U/L (45-117); TOTAL BILIRUBIN ADULT 0.8 MG/DL (0.2-1.0)
[2017-02-04 07:41] LABS: HEMO FLAGS AUTO DIFF
--- NOTE | 2017-02-04 08:46 | RADRPT ---
EXAM DATE/TIME: 02/04/2017 07:41 [facility] COMPARISON: No previous studies available for comparison. INDICATIONS : Right leg swelling. MEDICAL HISTORY : Myocardial infarction. CVA x2. Numbness. Weakness. Coronary artery disease. Chest pain. Afib. HT N. Abdominal pain. Diabetes. Hay fever. Depression. Anxiety. Substance use. SURGICAL HISTORY : Arm surgery. Throat surgery. ENCOUNTER: Initial ACUITY: 1 day PAIN SCORE: 0/10 LOCATION: Right leg. TECHNIQUE: Venous ultrasound of the leg was performed from the inguinal ligament to the proximal calf. Real-taryn e, color Doppler and spectral tracing, compression and augmentation techniques were used. FINDINGS: There is normal compressibility of the deep venous system from the inguinal region to the proximal ca lf. No echogenic clot is seen in the lumen of the common femoral, femoral, popliteal, and posterior tibial veins. There is a normal response of the venous system to proximal and distal augmentation an d respiration. CONCLUSION: Normal examination. Jermaine Malone Jr., MD on February 04, 2017 at 8:43 Board Certified Radiologist. This report was verified electronically.
[2017-02-04] MEDS: DOCUSATE SODIUM 50 MG/SENNA 8.6 MG TAB PO SCH ×2 (08:51→21:55)
[2017-02-04] MEDS: QUEtiapine FUMARATE 25 MG TAB PO SCH ×2 (08:51→21:55)
[2017-02-04] MEDS: METOPROLOL TARTRATE 50 MG TAB PO SCH ×2 (08:51→21:54)
[2017-02-04] MEDS: ASPIRIN EC 81 MG TABEC PO SCH (08:51)
[2017-02-04] MEDS: NYSTATIN 100,000 U/GM PWD 15 GM BTL TOPICAL SCH ×2 (08:52→21:53)
[2017-02-04] MEDS: CALCIUM CARBONATE 1.25 GM (CA 500 MG) TAB PO SCH ×3 (08:52→18:08)
[2017-02-04] MEDS: guaiFENesin E.R. 600 MG TAB PO SCH ×2 (08:52→21:55)
[2017-02-04] MEDS: POTASSIUM PHOSPHATE MONOBASIC 500 MG TAB PO SCH ×2 (08:52→21:55)
[2017-02-04] MEDS: INSULIN DETEMIR 100 UNITS/ML VIAL SQ SCH ×2 (08:52→21:54)
[2017-02-04] MEDS: SODIUM CHLORIDE 0.9% FLUSH 10 ML FLUSH IV FLUSH SCH ×2 (09:00→21:00)
[2017-02-04 09:09] LABS: SCAN/DIFF AUTO DIFF CONFIRMED
[2017-02-04 09:10] LABS: TARGET CELLS 1+ (NORMAL)
--- NOTE | 2017-02-04 12:02 | HHI.PR ---
Subjective Remarks HAS MSSA ON OXACILLIN BEING TRANSFUSED 2 UNITS PRBC NEEDS TO TRANSITION OFF CARDIZEM DRIP SWITCH TO PO DW RN AND PT 11-15 HAD RIGHT LE PAIN- US NEGATIVE FOR DVT HYPOMAG- WILL REPLACE DW RN AND PT OK FOR OUT OF ICU PT AND OT EVAL AND TREAT Objective Vitals Vital Signs Date Time Temp Pulse Resp B/P (MAP) Pulse Ox O2 Delivery O2 Flow Rate FiO2 02/04/17 11:00 87 02/04/17 11:00 98.4 87 0 160/104 (122) 02/04/17 10:58 Nasal Cannula 3.00 02/04/17 10:30 86 02/04/17 10:30 86 15 158/93 (114) 02/04/17 10:00 84 02/04/17 10:00 84 14 141/89 (106) 02/04/17 09:30 84 13 156/102 (120) 02/04/17 09:30 84 02/04/17 09:00 86 20 177/102 (127) 02/04/17 09:00 86 02/04/17 08:30 85 02/04/17 08:30 85 20 159/98 (118) 97 02/04/17 08:00 84 21 167/97 (120) 97 02/04/17 08:00 84 02/04/17 06:00 82 02/04/17 04:00 98.2 83 18 143/86 (105) 100 02/04/17 04:00 83 02/04/17 02:00 81 02/04/17 00:00 79 02/04/17 00:00 98.5 79 24 165/84 (111) 100 02/03/17 22:00 86 02/03/17 20:00 86 02/03/17 20:00 98.2 86 23 159/85 (109) 89 02/03/17 18:00 82 02/03/17 16:00 98.8 02/03/17 16:00 82 02/03/17 14:00 78 02/03/17 13:00 164/103 (123) 02/03/17 12:56 80 14 168/92 (117) 99 02/03/17 12:00 77 18 100 02/03/17 12:00 77 I/O 02/03/17 02/03/17 02/03/17 02/04/17 11/15/17 11/15/17 07:00 15:00 23:00 07:00 15:00 23:00 Intake Total 2720 ml 1316 ml 920 ml 2120 ml Output Total 800 ml 400 ml Balance 1920 ml 1316 ml 520 ml 2120 ml Intake Oral 820 ml IV Total 2720 ml 341 ml 100 ml 2120 ml Packed Cells 800 ml Blood Product IV Normal Saline Flush 175 ml Output Urine Total 800 ml 400 ml # Voids 2 4 # Bowel Movements 0 0 Result Diagram: 02/04/17 0630 02/04/17 0630 Other Results Laboratory Tests Test 02/02/17 05:00 02/02/17 11:40 02/02/17 17:08 02/03/17 04:59 White Blood Count 19.3 TH/MM3 15.1 TH/MM3 Red Blood Count 2.62 MIL/MM3 2.13 MIL/MM3 Hemoglobin 7.2 GM/DL 7.5 GM/DL 6.3 GM/DL Hematocrit 22.9 % 23.9 % 18.9 % Mean Corpuscular Volume 87.7 FL 88.7 FL Mean Corpuscular Hemoglobin 27.7 PG 29.5 PG Mean Corpuscular Hemoglobin Concent 31.6 % 33.3 % Red Cell Distribution Width 14.7 % 14.9 % Platelet Count 291 TH/MM3 238 TH/MM3 Mean Platelet Volume 8.8 FL 8.3 FL Neutrophils (%) (Auto) 87.2 % 79.5 % Lymphocytes (%) (Auto) 6.9 % 10.6 % Monocytes (%) (Auto) 4.5 % 7.9 % Eosinophils (%) (Auto) 0.6 % 1.3 % Basophils (%) (Auto) 0.8 % 0.7 % Neutrophils # (Auto) 16.8 TH/MM3 12.0 TH/MM3 Lymphocytes # (Auto) 1.3 TH/MM3 1.6 TH/MM3 Monocytes # (Auto) 0.9 TH/MM3 1.2 TH/MM3 Eosinophils # (Auto) 0.1 TH/MM3 0.2 TH/MM3 Basophils # (Auto) 0.1 TH/MM3 0.1 TH/MM3 CBC Comment AUTO DIFF DIFF FINAL Differential Comment AUTO DIFF CONFIRMED Activated Partial Thromboplast Time 64.1 SEC 65.1 SEC 72.3 SEC Blood Urea Nitrogen 24 MG/DL 25 MG/DL Creatinine 1.94 MG/DL 1.83 MG/DL Random Glucose 123 MG/DL 143 MG/DL Total Protein 7.5 GM/DL 7.0 GM/DL Albumin 1.3 GM/DL 1.2 GM/DL Calcium Level 7.7 MG/DL 7.6 MG/DL Alkaline Phosphatase 76 U/L 63 U/L Aspartate Amino Transf (AST/SGOT) 71 U/L 56 U/L Alanine Aminotransferase (ALT/SGPT) 6 U/L 6 U/L Total Bilirubin 0.6 MG/DL 0.5 MG/DL Sodium Level 135 MEQ/L 134 MEQ/L Potassium Level 4.3 MEQ/L 4.5 MEQ/L Chloride Level 106 MEQ/L 105 MEQ/L Carbon Dioxide Level 21.2 MEQ/L 21.9 MEQ/L Anion Gap 8 MEQ/L 7 MEQ/L Estimat Glomerular Filtration Rate 44 ML/MIN 47 ML/MIN Iron Level 31 MCG/DL Total Iron Binding Capacity 130 MCG/DL Percent Iron Saturation 23.8 % Ferritin 1418 NG/ML Test 02/03/17 16:51 02/04/17 06:30 Activated Partial Thromboplast Time 52.0 SEC 60.5 SEC White Blood Count 13.4 TH/MM3 Red Blood Count 2.82 MIL/MM3 Hemoglobin 8.2 GM/DL Hematocrit 24.2 % Mean Corpuscular Volume 85.8 FL Mean Corpuscular Hemoglobin 28.9 PG Mean Corpuscular Hemoglobin Concent 33.7 % Red Cell Distribution Width 15.7 % Platelet Count 240 TH/MM3 Mean Platelet Volume 8.2 FL Neutrophils (%) (Auto) 81.7 % Lymphocytes (%) (Auto) 8.0 % Monocytes (%) (Auto) 9.0 % Eosinophils (%) (Auto) 1.0 % Basophils (%) (Auto) 0.3 % Neutrophils # (Auto) 10.9 TH/MM3 Lymphocytes # (Auto) 1.1 TH/MM3 Monocytes # (Auto) 1.2 TH/MM3 Eosinophils # (Auto) 0.1 TH/MM3 Basophils # (Auto) 0.0 TH/MM3 CBC Comment AUTO DIFF Differential Comment AUTO DIFF CONFIRMED Target Cells 1+ Blood Urea Nitrogen 21 MG/DL Creatinine 1.75 MG/DL Random Glucose 129 MG/DL Total Protein 7.3 GM/DL Albumin 1.3 GM/DL Calcium Level 7.7 MG/DL Phosphorus Level 3.5 MG/DL Magnesium Level 1.3 MG/DL Alkaline Phosphatase 61 U/L Aspartate Amino Transf (AST/SGOT) 57 U/L Alanine Aminotransferase (ALT/SGPT) 6 U/L Total Bilirubin 0.8 MG/DL Sodium Level 135 MEQ/L Potassium Level 4.2 MEQ/L Chloride Level 105 MEQ/L Carbon Dioxide Level 21.7 MEQ/L Anion Gap 8 MEQ/L Estimat Glomerular Filtration Rate 49 ML/MIN Imaging Last Impressions Lower Extremity Ultrasound 02/04/17 0000 Signed Impressions: Service Date/Time: Saturday, February 04, 2017 07:41 - CONCLUSION: Normal examination. Jermaine Malone Jr., MD Abdomen/Pelvis CT 01/28/17 0000 Signed Impressions: Service Date/Time: Saturday, January 28, 2017 20:18 - CONCLUSION: 1. Bilateral pleural effusions and bibasilar infiltrates. 2. Cardiomegaly. 3. Subcutaneous edema. 4. Umbilical hernia. Jermaine Malone Jr., MD Abdomen X-Ray 01/25/17 0000 Signed Impressions: Service Date/Time: Wednesday, January 25, 2017 14:33 - CONCLUSION: Nonspecific, nonobstructive bowel gas pattern. Scot Sung MD Upper Extremity Ultrasound 01/23/17 0000 Signed Impressions: Service Date/Time: Monday, January 23, 2017 17:45 - CONCLUSION: Thrombus identified within the internal jugular, subclavian, and the basilic veins. Jeyson Luciano MD Chest X-Ray 01/21/17 0000 Signed Impressions: Service Date/Time: Saturday, January 21, 2017 22:42 - CONCLUSION: New hazy opacity in both lungs with concern for ovarian edema and congestive heart failure. Jose Espinal MD Head CT 01/10/17 1257 Signed Impressions: Service Date/Time: Tuesday, January 10, 2017 13:32 - CONCLUSION: No acute disease. Jermaine Malone Jr., MD Renal Ultrasound 01/10/17 0000 Signed Impressions: Service Date/Time: Tuesday, January 10, 2017 17:01 - CONCLUSION: Normal examination. Jermaine Malone Jr., MD Objective Remarks GENERAL: AWAKE ALERT AND ORIENTED TALKATIVE AND COOPERATIVE SKIN: Warm and dry. HEAD: Atraumatic. Normocephalic. EYES: Pupils equal and round. No scleral icterus. No injection or drainage. EOMI ENT: No nasal bleeding or discharge. Mucous membranes pink and moist. TONGUE IS MIDLINE NECK: Trachea midline. No JVD. SUPPLE CARDIOVASCULAR: IRRegular rate and rhythm. S1, S2 NO S3 OR S4 RESPIRATORY: No accessory muscle use. Clear to auscultation. Breath sounds equal bilaterally. GASTROINTESTINAL: Abdomen soft, non-tender, nondistended. Hepatic and splenic margins not palpable. MUSCULOSKELETAL: Extremities without clubbing, cyanosis, or edema. No obvious deformities. NEUROLOGICAL: Awake and alert. No obvious cranial nerve deficits. Motor grossly within normal limits. Five out of 5 muscle strength in the arms and legs. Normal speech. PSYCHIATRIC: Appropriate mood and affect; insight and judgment normal.SOME CONFUSION Procedures LIGIA Medications and IVs Current Medications Meclizine HCl (Antivert) 25 mg ONCE ONCE PO Last administered on 01/10/17 13 :42; Start 01/10/17 at 13:00; Stop 01/10/17 at 13:01; Status DC Sodium Chloride (NS Flush) 2 ml UNSCH PRN IVF FLUSH AFTER USING IV ACCESS; Start 01/10/17 at 13:00; Stop 01/10/17 at 22:25; Status DC Acetaminophen (Tylenol) 650 mg ONCE ONCE PO Last administered on 01/10/17 14 :07; Start 01/10/17 at 14:00; Stop 01/10/17 at 14:01; Status DC Insulin Human Regular (NovoLIN R INJ) 10 units ONCE ONCE IV PUSH Last administered on 01/10/17 16:14; Start 01/10/17 at 16:00; Stop 01/10/17 at 16 :01; Status DC Dextrose (D50w (Syr) Inj) 25 ml ONCE ONCE IV PUSH Last administered on 16:10; Start 01/10/17 at 16:00; Stop 01/10/17 at 16:01; Status DC Calcium Gluconate (Calcium Gluconate Inj) 1 gm ONCE ONCE IV PUSH Last administered on 01/10/17 16:09; Start 01/10/17 at 16:00; Stop 01/10/17 at 16 :01; Status DC Sodium Polystyrene Sulfonate (Kayexalate Liq) 15 gm ONCE ONCE PO ; Start 01/10 at 16:00; Stop 01/10/17 at 16:01; Status DC Sodium Bicarbonate 200 meq/Sodium Chloride 1,200 ml @ 100 mls/hr Q12H IV ; Start 01/10/17 at 16:15; Stop 01/11/17 at 14:47; Status DC Sodium Chloride 1,000 ml @ 999 mls/hr BOLUS ONCE IV Last administered on 16:43; Start 01/10/17 at 16:15; Stop 01/10/17 at 17:15; Status DC Sodium Chloride 1,000 ml @ 999 mls/hr BOLUS ONCE IV Last administered on 16:44; Start 01/10/17 at 16:15; Stop 01/10/17 at 17:15; Status DC Sodium Bicarbonate (Sodium Bicarbonate 8.4% Inj) 50 meq STK-MED ONCE .ROUTE ; Start 01/10/17 at 16:23; Stop 01/10/17 at 16:43; Status DC Sodium Bicarbonate 200 meq/Sterile Water 1,050 ml @ 150 mls/hr Q7H IV Last administered on 01/11/17 08:22; Start 01/10/17 at 16:45; Stop 01/11/17 at 14 :47; Status DC Sodium Chloride 1,000 ml @ 999 mls/hr BOLUS ONCE IV Last administered on 17:23; Start 01/10/17 at 17:00; Stop 01/10/17 at 18:00; Status DC Sodium Chloride 1,000 ml @ 999 mls/hr BOLUS ONCE IV Last administered on 17:23; Start 01/10/17 at 17:00; Stop 01/10/17 at 18:00; Status DC Sodium Chloride 1,000 ml @ 999 mls/hr BOLUS ONCE IV Last administered on 17:40; Start 01/10/17 at 17:00; Stop 01/10/17 at 18:00; Status DC Acetaminophen (Tylenol) 650 mg Q6H PRN PO PAIN SCALE 1 TO 4 Last administered on 02/01/17 00:12; Start 01/10/17 at 17:00 Albuterol Sulfate (Proair Hfa Inh) 2 puff Q6H PRN INH SHORTNESS OF BREATH; Start 01/10/17 at 17:00 Atorvastatin Calcium (Lipitor) 80 mg HS PO Last administered on 02/03/17 21: 01; Start 01/10/17 at 21:00 Nitroglycerin (Nitrostat Sl) 0.4 mg Q3H PRN SL CHEST PAIN; Start 01/10/17 at 17:00 Aspirin (Ecotrin Ec) 81 mg DAILY PO Last administered on 02/04/17 08:51; Start 01/10/17 at 17:00 Heparin Sodium/ Dextrose 250 ml @ 10 mls/hr TITRATE PRN IV Coagulation management Last administered on 01/11/17 01:03; Start 01/10/17 at 17:00; Stop 01/11/17 at 17:15; Status DC Insulin Aspart (NovoLOG SUPPLEMENTAL SCALE) 1 Q4H SQ Last administered on 04:39; Start 01/10/17 at 17:00; Stop 01/23/17 at 08:38; Status DC Sodium Chloride (NS Flush) 2 ml UNSCH PRN IV FLUSH FLUSH AFTER USING IV ACCESS ; Start 01/10/17 at 17:15; Stop 01/11/17 at 14:50; Status DC Sodium Chloride (NS Flush) 2 ml BID IV FLUSH Last administered on 02/03/17 21 :00; Start 01/10/17 at 21:00 Pantoprazole Sodium (Protonix) 40 mg DAILY PO ; Start 01/11/17 at 09:00; Stop 01/11/17 at 17:15; Status DC Miscellaneous Information 1 Q361D XX ; Start 01/10/17 at 17:15 Chlorhexidine Gluconate (Chlorhexidine 2% Cloth) Taper DAILY@04 TOP Last administered on 02/04/17 05:28; Start 01/11/17 at 04:00; Stop 01/07/18 at 03 :59 Chlorhexidine Gluconate (Chlorhexidine 2% Cloth) 3 pack UNSCH PRN TOP HYGIENIC CARE; Start 01/10/17 at 17:15 Senna/Docusate Sodium (Afia-Colace) 1 tab BID PO Last administered on 08:51; Start 01/10/17 at 21:00 Magnesium Hydroxide (Milk Of Magnesia Liq) 30 ml Q12H PRN PO Mild constipation Last administered on 02/04/17 08:51; Start 01/10/17 at 17:15 Sennosides (Senokot) 17.2 mg Q12H PRN PO Moderate constipation; Start at 17:15 Bisacodyl (Dulcolax Supp) 10 mg DAILY PRN RECTAL SEVERE CONSITIPATION; Start 01/10/17 at 17:15 Lactulose (Lactulose Liq) 30 ml DAILY PRN PO SEVERE CONSITIPATION Last administered on 02/04/17 08:51; Start 01/10/17 at 17:15 Sodium Bicarbonate 0 ml @ As Directed STK-MED ONCE .ROUTE ; Start 01/10/17 at 17:23; Stop 01/10/17 at 17:24; Status DC Sodium Bicarbonate (Sodium Bicarbonate 8.4% Inj) 50 meq STK-MED ONCE .ROUTE ; Start 01/10/17 at 17:23; Stop 01/10/17 at 17:24; Status DC Sodium Chloride 1,000 ml @ 0 mls/hr Q0M PRN OTHER For Prime & Rinse Back Last administered on 01/10/17 22:05; Start 01/10/17 at 17:47; Stop 02/03/17 at 12 :19; Status DC Heparin Sodium (Porcine) (Heparin Inj) 8,000 units UNSCH PRN IV FLUSH WITH DIALYSIS; Start 01/10/17 at 18:00; Stop 01/24/17 at 11:56; Status DC Sodium Chloride 1,000 ml @ 200 mls/hr Q5H PRN IV WITH DIALYSIS; Start at 17:47; Stop 02/03/17 at 12:19; Status DC Sodium Chloride 1,000 ml @ 0 mls/hr Q0M PRN OTHER WITH DIALYSIS; Start at 17:47; Stop 02/03/17 at 12:19; Status DC Mannitol (Mannitol Inj) 12.5 gm UNSCH PRN IV WITH DIALYSIS; Start 01/10/17 at 18:00; Stop 02/03/17 at 12:19; Status DC Albumin Human 100 ml @ 60 mls/hr UNSCH PRN IV WITH DIALYSIS; Start 01/10/17 at 18:00; Stop 02/03/17 at 12:19; Status DC Sodium Chloride (NS Flush) 5 ml UNSCH PRN IV FLUSH WITH DIALYSIS; Start at 18:00; Stop 02/03/17 at 12:19; Status DC Heparin Sodium (Porcine) (Heparin Inj) UNSCH PRN .XX WITH DIALYSIS; Start at 18:00; Stop 02/03/17 at 12:19; Status DC Gentamicin Sulfate (Gentamicin (Dialysis) Inj) 20 mg UNSCH PRN OTHER WITH DIALYSIS Last administered on 01/10/17 22:03; Start 01/10/17 at 18:00; Stop 02/03/17 at 12:19; Status DC Ondansetron HCl (Zofran Inj) 4 mg UNSCH PRN IV PUSH WITH DIALYSIS Last administered on 01/18/17 08:51; Start 01/10/17 at 18:00; Stop 02/03/17 at 12 :19; Status DC Acetaminophen (Tylenol) 650 mg UNSCH PRN PO for headach, pain, temp > 101F Last administered on 01/30/17 01:51; Start 01/10/17 at 18:00; Stop 02/03/17 at 12:19; Status DC Diphenhydramine HCl (Benadryl) 25 mg UNSCH PRN PO for hives/itching/ anaphylaxis Last administered on 02/03/17 02:33; Start 01/10/17 at 18:00; Stop 02/03/17 at 12:19; Status DC Nitroglycerin (Nitrostat Sl) 0.4 mg UNSCH PRN SL CHEST PAIN; Start 01/10/17 at 18:00; Stop 02/03/17 at 12:19; Status DC Clonidine (Catapres) 0.1 mg UNSCH PRN PO for BP > 180/100 X 2 readings Last administered on 01/15/17 02:07; Start 01/10/17 at 18:00; Stop 02/03/17 at 12 :19; Status DC Gelatin (Gelfoam 12 Mm/7 Mm Top) 1 foam UNSCH PRN TOP SEE LABEL COMMENTS; Start 01/10/17 at 18:00; Stop 02/03/17 at 12:19; Status DC Dextrose (D50w (Vial) Inj) 50 ml UNSCH PRN IV PUSH HYPOGLYCEMIA-SEE COMMENTS Last administered on 01/10/17 18:05; Start 01/10/17 at 22:30; Stop 01/24/17 at 16:15; Status DC Glucagon (Glucagon Inj) 1 mg UNSCH PRN OTHER HYPOGLYCEMIA-SEE COMMENTS; Start 01/10/17 at 22:30; Stop 01/24/17 at 16:15; Status DC Dexmedetomidine HCl 200 mcg/ Sodium Chloride 52 ml @ 5.46 mls/hr TITRATE PRN IV SEDATION Last administered on 01/12/17 14:53; Start 01/11/17 at 00:00 Metoprolol Tartrate (Lopressor) 25 mg Q12HR PO Last administered on 01/15/17 08:48; Start 01/11/17 at 21:00; Stop 01/15/17 at 11:09; Status DC Metoprolol Tartrate (Lopressor Inj) 5 mg Q1HR PRN IV PUSH RAPID HEART RATE Last administered on 01/14/17 21:16; Start 01/11/17 at 11:15; Stop 01/15/17 at 11:09; Status DC Diltiazem HCl 125 mg/Sodium Chloride 125 ml @ 5 mls/hr TITRATE PRN IV Tachycardia Last administered on 01/15/17 10:45; Start 01/11/17 at 17:30; Stop 01/15/17 at 11:11; Status DC Sodium Chloride 1,000 ml @ 84 mls/hr [id number] IV Last administered on 01:04; Start 01/12/17 at 13:00; Stop 01/13/17 at 12:51; Status DC Haloperidol Lactate (Haldol Inj) 5 mg Q4H PRN IV agitation Last administered on 02/04/17 05:40; Start 01/12/17 at 17:00 Diltiazem HCl (Cardizem) 60 mg Q6HR PO Last administered on 01/15/17 07:03; Start 01/13/17 at 06:00; Stop 01/15/17 at 11:09; Status DC Sodium Chloride 38.5 meq/Sterile Water 1,009.625 ml @ 84 mls/hr Q12H2M IV Last administered on 01/22/17 22:46; Start 01/13/17 at 15:00; Stop 01/23/17 at 11: 57; Status DC Metoclopramide HCl (Reglan Inj) 5 mg Q8H PRN IV PUSH NAUSEA OR VOMITING Last administered on 01/14/17 22:57; Start 01/14/17 at 11:15; Stop 01/15/17 at 08 :56; Status DC Potassium Chloride 100 ml @ 50 mls/hr Q2H IV Last administered on 01/14/17 15:19; Start 01/14/17 at 12:00; Stop 01/14/17 at 15:59; Status DC Hydralazine HCl (Apresoline Inj) 20 mg ONCE ONCE IV PUSH Last administered on 01/14/17 22:58; Start 01/14/17 at 23:00; Stop 01/14/17 at 23:01; Status DC Metoclopramide HCl (Reglan Inj) 5 mg Q8H IV PUSH Last administered on 08:52; Start 01/15/17 at 10:00 Hydralazine HCl (Apresoline Inj) 10 mg Q4H PRN IV PUSH SYS BP GREATER THAN 160 MMHG Last administered on 02/03/17 17:56; Start 01/15/17 at 10:00 Potassium Chloride 100 ml @ 100 mls/hr Q1H IV ; Start 01/15/17 at 10:00; Stop 01/15/17 at 10:00; Status DC Potassium Chloride 100 ml @ 50 mls/hr Q2H IV Last administered on 01/16/17 06:11; Start 01/15/17 at 10:00; Status Future Hold Diltiazem HCl 125 mg/Sodium Chloride 125 ml @ 15 mls/hr TITRATE PRN IV Tachycardia Last administered on 01/19/17 00:59; Start 01/15/17 at 17:30; Stop 01/19/17 at 08:01; Status DC Metoprolol Tartrate (Lopressor Inj) 5 mg Q4H IV PUSH Last administered on 01/16 08:48; Start 01/15/17 at 12:00; Stop 01/16/17 at 09:17; Status DC Heparin Sodium (Porcine) (Heparin Inj) 4,000 units NOW STAT IV PUSH ; Start at 11:11; Stop 01/15/17 at 11:12; Status Cancel Heparin Sodium (Porcine) (Heparin Inj) 5,000 units UNSCH PRN IV PUSH APTT LESS THAN 25; Start 01/15/17 at 17:15; Stop 01/24/17 at 11:56; Status DC Heparin Sodium (Porcine) (Heparin Inj) 2,500 units UNSCH PRN IV PUSH APTT 25 TO 39 Last administered on 01/16/17 06:17; Start 01/15/17 at 17:15; Stop 01/24/17 at 11:56; Status DC Heparin Sodium/ Dextrose 250 ml @ 10 mls/hr TITRATE PRN IV Coagulation management; Start 01/15/17 at 11:15; Status Cancel Heparin Sodium (Porcine) (Heparin Inj) 4,000 units NOW STAT IV PUSH Last administered on 01/15/17 15:45; Start 01/15/17 at 15:45; Stop 01/15/17 at 15 :51; Status DC Heparin Sodium/ Dextrose 250 ml @ 10 mls/hr TITRATE PRN IV Coagulation management Last administered on 01/20/17 05:11; Start 01/15/17 at 16:00; Stop 01/20/17 at 08:22; Status DC Clonidine (Catapres-Tts 0.3 Mg Patch.7d) 1 patch Q7D T-DERMAL Last administered on 01/30/17 11:46; Start 01/16/17 at 10:00 Metoprolol Tartrate (Lopressor Inj) 5 mg Q3H IV PUSH Last administered on 01/19 02:31; Start 01/16/17 at 11:00; Stop 01/19/17 at 08:01; Status DC Miscellaneous Information 1 Q7D T-DERMAL Last administered on 01/30/17 10:00 ; Start 01/16/17 at 10:00 Guaifenesin (Mucinex Er) 600 mg BID PO Last administered on 02/04/17 08:52; Start 01/16/17 at 21:00 Magnesium Sulfate/ Dextrose 100 ml @ 100 mls/hr ONCE ONCE IV Last administered on 01/16/17 14:14; Start 01/16/17 at 12:00; Stop 01/16/17 at 12 :59; Status DC Magnesium Sulfate/ Dextrose 100 ml @ 100 mls/hr Q1H IV Last administered on 11:45; Start 01/17/17 at 10:45; Stop 01/17/17 at 12:44; Status DC Calcium Gluconate 1 gm/Sodium Chloride 110 ml @ 110 mls/hr ONCE ONCE IV Last administered on 01/17/17 12:00; Start 01/17/17 at 12:00; Stop 01/17/17 at 12 :59; Status DC Calcium Carbonate (Oscal) 500 mg TID PO Last administered on 02/04/17 08:52; Start 01/17/17 at 13:00 Potassium Phosphate (K-Phos) 500 mg Q12HR PO Last administered on 02/04/17 08 :52; Start 01/17/17 at 14:00 Quetiapine Fumarate (SEROquel) 25 mg BID PO Last administered on 02/04/17 08: 51; Start 01/17/17 at 21:00 Sodium Chloride 500 ml @ 500 mls/hr BOLUS ONCE IV Last administered on 09:00; Start 01/18/17 at 09:00; Stop 01/18/17 at 09:59; Status DC Magnesium Sulfate/ Dextrose 100 ml @ 100 mls/hr ONCE ONCE IV Last administered on 01/18/17 12:48; Start 01/18/17 at 12:30; Stop 01/18/17 at 13 :29; Status DC Calcium Gluconate 1 gm/Dextrose 110 ml @ 110 mls/hr ONCE ONCE IV Last administered on 01/18/17 12:30; Start 01/18/17 at 12:30; Stop 01/18/17 at 13 :29; Status DC Potassium Chloride (KCl) 20 meq ONCE ONCE PO Last administered on 01/18/17 14:00; Start 01/18/17 at 14:00; Stop 01/18/17 at 14:01; Status DC Metoprolol Tartrate (Lopressor) 50 mg Q8HR PO Last administered on 01/29/17 06 :27; Start 01/19/17 at 14:00; Stop 01/29/17 at 13:38; Status DC Diltiazem HCl (Cardizem) 90 mg TID PO Last administered on 01/19/17 18:42; Start 01/19/17 at 09:00; Stop 01/20/17 at 08:22; Status DC Warfarin Sodium (Coumadin) 5 mg DAILY@1600 PO Last administered on 01/19/17 15:43; Start 01/19/17 at 16:00; Stop 01/20/17 at 08:22; Status DC Diltiazem HCl (Cardizem Cd) 300 mg DAILY PO Last administered on 01/22/17 09: 12; Start 01/20/17 at 09:00; Stop 01/23/17 at 11:56; Status DC Labetalol HCl (Trandate Inj) 10 mg Q4H PRN IV PUSH SBP>160, DBP>90 Last administered on 01/20/17 17:27; Start 01/20/17 at 08:30 Magnesium Sulfate/ Dextrose 100 ml @ 100 mls/hr ONCE ONCE IV Last administered on 01/20/17 13:26; Start 01/20/17 at 12:00; Stop 01/20/17 at 12 :59; Status DC Potassium Chloride 100 ml @ 50 mls/hr BOLUS ONCE IV Last administered on 13:27; Start 01/20/17 at 13:00; Stop 01/20/17 at 14:59; Status DC Magnesium Sulfate/ Dextrose 100 ml @ 100 mls/hr ONCE ONCE IV Last administered on 01/21/17 17:48; Start 01/21/17 at 17:15; Stop 01/21/17 at 18:14 ; Status DC Cefepime HCl 1000 mg/Sodium Chloride 100 ml @ 200 mls/hr Q12H IV Last administered on 01/24/17 19:39; Start 01/22/17 at 09:00; Stop 01/24/17 at 20:07 ; Status DC Azithromycin 250 mg/Sodium Chloride 250 ml @ 250 mls/hr Q24H IV Last administered on 01/23/17 11:20; Start 01/22/17 at 10:00; Stop 01/23/17 at 13:29 ; Status DC Pharmacy Profile Note 0 ml @ 0 mls/hr UNSCH OTHER ; Start 01/23/17 at 05:45; Stop 01/23/17 at 10:20; Status DC Vancomycin HCl 1250 mg/Sodium Chloride 262.5 ml @ 250 mls/hr NOW ONCE IV Last administered on 01/23/17 06:39; Start 01/23/17 at 06:00; Stop 01/23/17 at 07:02; Status DC Insulin Detemir (Levemir Inj) 5 units Q12HR SQ Last administered on 02/04/17 08:52; Start 01/23/17 at 09:00 Vancomycin HCl 1250 mg/Sodium Chloride 262.5 ml @ 262.5 mls/ hr ONCE ONCE IV ; Start 01/23/17 at 09:15; Stop 01/23/17 at 10:19; Status DC Pharmacy Profile Note 0 ml @ 0 mls/hr UNSCH OTHER ; Start 01/23/17 at 10:15; Stop 01/24/17 at 20:07; Status DC Diltiazem HCl 125 mg/Sodium Chloride 125 ml @ 5 mls/hr TITRATE PRN IV Tachycardia Last administered on 02/01/17 11:45; Start 01/23/17 at 12:00; Stop 02/03/17 at 12:41; Status DC Sodium Chloride 1,000 ml @ 84 mls/hr [id number] IV Last administered on 08:56; Start 01/23/17 at 12:00; Stop 02/03/17 at 12:17; Status DC Magnesium Sulfate/ Dextrose 100 ml @ 100 mls/hr ONCE ONCE IV Last administered on 01/23/17 13:12; Start 01/23/17 at 13:00; Stop 01/23/17 at 13:59 ; Status DC Calcium Gluconate (Calcium Gluconate Inj) 1 gm ONCE ONCE IV PUSH ; Start at 12:00; Stop 01/23/17 at 12:01; Status UNV Calcium Gluconate 1 gm/Sodium Chloride 110 ml @ 110 mls/hr ONCE ONCE IV Last administered on 01/23/17 14:14; Start 01/23/17 at 14:00; Stop 01/23/17 at 14:59 ; Status DC Hydromorphone HCl (Dilaudid Pf Inj) 0.5 mg Q4HR PRN IV PUSH SEE LABEL COMMENTS Last administered on 02/04/17 07:34; Start 01/23/17 at 14:45 Hydromorphone HCl (Dilaudid Pf Inj) 0.75 mg Q4HR PRN IV PUSH SEE LABEL COMMENTS Last administered on 01/31/17 14:28; Start 01/23/17 at 14:45 Heparin Sodium/ Dextrose 250 ml @ 5 mls/hr CONTINUOUS IV ; Start 01/24/17 at 12: 00; Stop 01/24/17 at 13:29; Status DC Heparin Sodium/ Dextrose 250 ml @ 18 mls/hr TITRATE PRN IV Coagulation Management Last administered on 02/03/17 09:20; Start 01/24/17 at 12:00 Dextrose (D50w (Vial) Inj) 25 ml UNSCH PRN IV PUSH HYPOGLYCEMIA-SEE COMMENTS; Start 01/24/17 at 16:00 Insulin Human Regular (NovoLIN R SUPPLEMENTAL SCALE) 1 Q6HR SQ Last administered on 02/04/17 00:00; Start 01/24/17 at 18:00 Cefazolin Sodium/ Dextrose 50 ml @ 150 mls/hr Q8H IV Last administered on 01/29 13:05; Start 01/24/17 at 20:00; Stop 01/29/17 at 13:26; Status DC Metoprolol Tartrate (Lopressor Inj) 5 mg ONCE ONCE IV PUSH Last administered on 01/26/17 06:12; Start 01/26/17 at 06:00; Stop 01/26/17 at 06:01; Status DC Calcium Gluconate 1 gm/Dextrose 110 ml @ 110 mls/hr ONCE ONCE IV Last administered on 01/28/17 11:35; Start 01/28/17 at 11:30; Stop 01/28/17 at 12:29 ; Status DC Rifampin (Rifampin) 300 mg Q12H PO Last administered on 02/04/17 00:15; Start 01/28/17 at 14:00 Calcium Gluconate 1 gm/Dextrose 110 ml @ 110 mls/hr ONCE ONCE IV Last administered on 01/29/17 13:04; Start 01/29/17 at 10:30; Stop 01/29/17 at 11:29 ; Status DC Cefazolin Sodium/ Dextrose 50 ml @ 150 mls/hr Q12H IV Last administered on 11:46; Start 01/30/17 at 00:00; Stop 01/30/17 at 15:01; Status DC Metoprolol Tartrate (Lopressor) 100 mg BID PO Last administered on 02/04/17 08:51; Start 01/29/17 at 21:00 Calcium Gluconate 1 gm/Dextrose 110 ml @ 110 mls/hr ONCE ONCE IV Last administered on 01/30/17 08:38; Start 01/30/17 at 08:00; Stop 01/30/17 at 08 :59; Status DC Diltiazem HCl (Cardizem) 30 mg Q6HR PO Last administered on 02/04/17 05:28; Start 01/30/17 at 12:00 Oxacillin Sodium 2 gm/Sodium Chloride 100 ml @ 200 mls/hr Q4H IV ; Start 01/30 at 15:00; Stop 01/30/17 at 15:11; Status DC Oxacillin Sodium 2 gm/Sodium Chloride 100 ml @ 200 mls/hr Q4H IV Last administered on 02/04/17 08:52; Start 01/30/17 at 16:00 Calcium Gluconate 1 gm/Sodium Chloride 110 ml @ 110 mls/hr NOW ONCE IV Last administered on 01/31/17 08:43; Start 01/31/17 at 07:00; Stop 01/31/17 at 07 :59; Status DC Calcium Gluconate 1 gm/Sodium Chloride 100 ml @ 100 mls/hr ONCE ONCE IV ; Start 01/31/17 at 07:45; Stop 01/31/17 at 08:44; Status Cancel Calcium Gluconate 1 gm/Sodium Chloride 100 ml @ 100 mls/hr ONCE ONCE IV Last administered on 02/01/17 10:25; Start 02/01/17 at 09:00; Stop 02/01/17 at 09 :59; Status DC Sodium Chloride 250 ml @ 15 mls/hr ONCE ONCE IV ; Start 02/01/17 at 07:45; Stop 02/02/17 at 00:24; Status DC Sodium Chloride 250 ml @ 15 mls/hr ONCE ONCE IV Last administered on 09:30; Start 02/03/17 at 06:45; Stop 02/03/17 at 23:24; Status DC Sodium Chloride 1,000 ml @ 42 mls/hr [id number] IV Last administered on 12:30; Start 02/03/17 at 12:30 Nystatin (Mycostatin Powder) 1 applic Q12HR TOPICAL Last administered on 08:52; Start 02/03/17 at 21:00 A/P Problem List: (1) Acute on chronic kidney failure ICD Code: N17.9 - Acute kidney failure, unspecified; N18.9 - Chronic kidney disease, unspecified (2) Combined metabolic and respiratory acidosis (3) Acute metabolic encephalopathy ICD Code: G93.41 - Metabolic encephalopathy (4) NSTEMI (non-ST elevated myocardial infarction) ICD Code: I21.4 - Non-ST elevation (NSTEMI) myocardial infarction (5) Hyperkalemia ICD Code: E87.5 - Hyperkalemia Status: Acute (6) Metabolic acidemia ICD Code: E87.2 - Acidosis (7) History of CVA (cerebrovascular accident) ICD Code: Z86.73 - Personal history of transient ischemic attack (TIA), and cerebral infarction without residual deficits Status: Chronic (8) Diabetes ICD Code: E11.9 - Type 2 diabetes mellitus without complications Status: Acute (9) HTN (hypertension) ICD Code: I10 - Essential (primary) hypertension Status: Chronic Assessment and Plan 56-year-old male admitted secondary to bacteremia, fever, A. fib RVR, left arm DVT, encephalopathy. Labs reviewed. Hemoglobin level dropped. 2 units packed red blood cells transfused 02/01/17. Calcium level is low and supplementation provided. Continue to monitor renal function and white blood cell count. Labs ordered for further monitoring. WILL BE TRANSFUSED 2 MORE UNITS PRBC TODAY Labs reviewed. Follow Hgb as anemia is still exhibiting a progressive decline. Labs ordered for further monitoring. Acute blood loss anemia Obtain stool occult blood study Transfuse 2 units packed red blood cells on 02/01/17 Monitor hemoglobin TRANSFUSE 2 UNITS PRBC 02-03 Acute Metabolic Encephalopathy Agitated Delirium History of Previous CVA with left hemiparesis Delirium Less oriented today Follow clinically Check ammonia level Decision-making capacity does not exist in this patient Severe combined Metabolic and respiratory acidosis Resolved Continue bronchodilators Continue incentive spirometry Continue mucolytic A flutter/fibrillation with RVR Elevated troponin Coronary artery disease By mouth Cardizem continued-SWITCH OFF IV Continue metoprolol Cardiology following IV heparin Left upper extremity DVT Continue IV heparin Follow clinically Diabetes mellitus type 2 Follow blood sugars Insulin sliding scale Diabetic diet Sepsis Resolved MSSA bacteremia Suspected infected thrombophlebitis Continue cefazolin Continue rifampin LIGIA showed no vegetations ID following Continue to follow cultures Acute kidney injury Nephrology following Dialysis if needed Monitor renal function Monitor electrolytes DVT prophylaxis IV heparin HYPOMAGNESIUM WILL REPLACE AND RECHECK IN AM Discharge Planning NEEDS SNF AT [place] IF ABLE TO GO Problem Qualifiers (1) Diabetes: (2) HTN (hypertension): Qualified Codes: I10 - Essential (primary) hypertension Mt Kemp DO Feb 04, 2017 12:02
[2017-02-04] MEDS: SODIUM CHLOR 0.9% 1000 ML INJ 1,000 ML IV SCH (12:19)
--- NOTE | 2017-02-04 12:33 | HHI.IDPN ---
Subjective Subjective Remarks Is a 56-year-old male with past medical history significant for chronic kidney disease baseline creatinine 1.8-2, type 2 diabetes, history of CVA with residual left patient is a 56-year-old male, admitted to the hospital complaining of generalized weakness and dizziness for about 1 week. He apparently lives in a fdc and walks with a cane, and has left-sided weakness. There is mention that he had fallen a couple times due to the weakness. There is also mention that he was not having enough by mouth intake, as well as some diarrhea. He denies any abdominal pain, any nausea or vomiting. On initial presentation patient was found to be in atrial flutter with RVR. He also has significant acidosis, and has an elevated potassium and creatinine. Patient was seen by cardiology, and his echo showed normal EF. Patient also was seen by renal, and underwent emergency hemodialysis. His hemodynamics stabilized, and the hemodialysis has been stopped. He has good urine output. Patient has been refusing a lot of his treatment. His had some problem with nausea and vomiting. He has had on and off fevers which are low- grade, however in the last probably 4 days, his fevers have been more persistent. He is complaining of pain on the right side of his trunk. There is also mention that his left upper extremity is swollen. Patient has no central line. He has a condom catheter. Chest x-ray has shown a similar opacities bilaterally. Patient was started on antibiotics, and currently on AZT mycin, cefepime, and vancomycin. Infectious disease consultation has been requested to evaluate the patient. Notes reviewed Temps ok D/W RN Monitor shows NSR Cardizem drip off No complaints LIGIA negative for endocarditis BC (+) 01/22-01/29 BC 01/31, 02/01 negative CReatinine better On nasal O2 BP ok Has thrombus in LUE as well as in his LIJ, and LSC Antibiotics Oxacillin Rifampin Lines PIV Past Medical History Chronic kidney disease Type 2 diabetes Hypertension Dyslipidemia Previous stroke, with residual L weakness Atrial fibrillation/flutter CAD History of PUD Past Surgical History Throat and arm surgery Allergies: Coded Allergies: No Known Allergies (Unverified , 01/07/17) Objective . Vital Signs Date Time Temp Pulse Resp B/P (MAP) Pulse Ox O2 Delivery O2 Flow Rate FiO2 02/04/17 11:00 87 02/04/17 11:00 98.4 87 0 160/104 (122) 02/04/17 10:58 Nasal Cannula 3.00 02/04/17 10:30 86 02/04/17 10:30 86 15 158/93 (114) 02/04/17 10:00 84 02/04/17 10:00 84 14 141/89 (106) 02/04/17 09:30 84 13 156/102 (120) 02/04/17 09:30 84 02/04/17 09:00 86 20 177/102 (127) 02/04/17 09:00 86 02/04/17 08:30 85 02/04/17 08:30 85 20 159/98 (118) 97 02/04/17 08:00 84 21 167/97 (120) 97 02/04/17 08:00 84 02/04/17 06:00 82 02/04/17 04:00 98.2 83 18 143/86 (105) 100 02/04/17 04:00 83 02/04/17 02:00 81 02/04/17 00:00 79 02/04/17 00:00 98.5 79 24 165/84 (111) 100 02/03/17 22:00 86 02/03/17 20:00 86 02/03/17 20:00 98.2 86 23 159/85 (109) 89 02/03/17 18:00 82 02/03/17 16:00 98.8 02/03/17 16:00 82 02/03/17 14:00 78 02/03/17 13:00 164/103 (123) 02/03/17 12:56 80 14 168/92 (117) 99 . Laboratory Tests Test 02/02/17 17:08 02/03/17 04:59 02/04/17 06:30 Hemoglobin 7.5 GM/DL 6.3 GM/DL 8.2 GM/DL Hematocrit 23.9 % 18.9 % 24.2 % White Blood Count 15.1 TH/MM3 13.4 TH/MM3 Red Blood Count 2.13 MIL/MM3 2.82 MIL/MM3 Mean Corpuscular Volume 88.7 FL 85.8 FL Mean Corpuscular Hemoglobin 29.5 PG 28.9 PG Mean Corpuscular Hemoglobin Concent 33.3 % 33.7 % Red Cell Distribution Width 14.9 % 15.7 % Platelet Count 238 TH/MM3 240 TH/MM3 Mean Platelet Volume 8.3 FL 8.2 FL Neutrophils (%) (Auto) 79.5 % 81.7 % Lymphocytes (%) (Auto) 10.6 % 8.0 % Monocytes (%) (Auto) 7.9 % 9.0 % Eosinophils (%) (Auto) 1.3 % 1.0 % Basophils (%) (Auto) 0.7 % 0.3 % Neutrophils # (Auto) 12.0 TH/MM3 10.9 TH/MM3 Lymphocytes # (Auto) 1.6 TH/MM3 1.1 TH/MM3 Monocytes # (Auto) 1.2 TH/MM3 1.2 TH/MM3 Eosinophils # (Auto) 0.2 TH/MM3 0.1 TH/MM3 Basophils # (Auto) 0.1 TH/MM3 0.0 TH/MM3 CBC Comment DIFF FINAL AUTO DIFF Differential Comment AUTO DIFF CONFIRMED Target Cells 1+ Laboratory Tests Test 02/03/17 04:59 02/04/17 06:30 Blood Urea Nitrogen 25 MG/DL 21 MG/DL Creatinine 1.83 MG/DL 1.75 MG/DL Random Glucose 143 MG/DL 129 MG/DL Total Protein 7.0 GM/DL 7.3 GM/DL Albumin 1.2 GM/DL 1.3 GM/DL Calcium Level 7.6 MG/DL 7.7 MG/DL Alkaline Phosphatase 63 U/L 61 U/L Aspartate Amino Transf (AST/SGOT) 56 U/L 57 U/L Alanine Aminotransferase (ALT/SGPT) 6 U/L 6 U/L Total Bilirubin 0.5 MG/DL 0.8 MG/DL Sodium Level 134 MEQ/L 135 MEQ/L Potassium Level 4.5 MEQ/L 4.2 MEQ/L Chloride Level 105 MEQ/L 105 MEQ/L Carbon Dioxide Level 21.9 MEQ/L 21.7 MEQ/L Anion Gap 7 MEQ/L 8 MEQ/L Estimat Glomerular Filtration Rate 47 ML/MIN 49 ML/MIN Phosphorus Level 3.5 MG/DL Magnesium Level 1.3 MG/DL Imaging Last Impressions Abdomen X-Ray 01/25/17 0000 Signed Impressions: Service Date/Time: Wednesday, January 25, 2017 14:33 - CONCLUSION: Nonspecific, nonobstructive bowel gas pattern. Scot Sung MD Upper Extremity Ultrasound 01/23/17 0000 Signed Impressions: Service Date/Time: Monday, January 23, 2017 17:45 - CONCLUSION: Thrombus identified within the internal jugular, subclavian, and the basilic veins. Jeyson Luciano MD Chest X-Ray 01/21/17 0000 Signed Impressions: Service Date/Time: Saturday, January 21, 2017 22:42 - CONCLUSION: New hazy opacity in both lungs with concern for ovarian edema and congestive heart failure. Jose Espinal MD Head CT 01/10/17 1257 Signed Impressions: Service Date/Time: Tuesday, January 10, 2017 13:32 - CONCLUSION: No acute disease. Jermaine Malone Jr., MD Renal Ultrasound 01/10/17 0000 Signed Impressions: Service Date/Time: Tuesday, January 10, 2017 17:01 - CONCLUSION: Normal examination. Jermaine Malone Jr., MD Physical Exam GENERAL: Awake and alert, not in respiratory distress. SKIN: Warm and dry. No generalized rash, no ecchymoses and no evidence of embolic lesions. HEAD: Atraumatic. Normocephalic. No temporal wasting, or tenderness. EYES: [place] conjunctiva. No petechia or hemorrhage. Pupils equal, round and reactive to light. Extraocular movements full and intact. No scleral icterus. No injection or drainage. EARS, NOSE AND THROAT: Nose without bleeding or purulent nasal discharge. No sinus tenderness. Moist mucosa NECK: Trachea midline. Supple and not tender, no meningeal signs. Previous vascath site looks ok, dry CARDIOVASCULAR: Tachycardic, irregular rate and rhythm. No murmurs, rubs or gallops heard RESPIRATORY: Clear to auscultation. Breath sounds equal bilaterally. No rales , wheezing or rhonchi, decreased at the bases ABDOMEN: Soft, Not tender, not distended. No guarding or rebound. Bowel sounds present and normoactive. No organomegaly. EXTREMITIES: min BLE edema, no cyanosis. LUE is swollen : Some ulcers in scrotum and penile shaft NEUROLOGICAL: Awake and alert. L side plegic PSYCHIATRIC: calm, cooperative this morning LINE: No evidence of infection Assessment & Plan Remarks IMPRESSION Sepsis with MSSA - had vascath placed 01/10, removed 01/15 - has DVT LUE including LIJ and LSC, and previously had vascath and suspicious for infected thrombophlebitis - has basilar opacities, ?fluid; not coughing or congested, less likely PNA - BC still (+) Renal failure, creatinine has improved and has good UO Previous CVA with left sided weakness Atrial fib with RVR Leukocytosis, improving PLAN Continue Oxacillin Continue Rifampin Follow C/S He will need 6 weeks IV Abx from date of last (+) BC - if no other new (+) BC, anticipated end date is Mar 11 Labs while on Abx: CBC, creat, CBC Follow CBC Monitor progress D/W Kimi Pal MD Feb 04, 2017 12:33
[2017-02-04] MEDS: MAGNESIUM SULFATE 1 GM PREMIX 100 ML IV SCH ×2 (12:34→14:04)
--- NOTE | 2017-02-04 14:40 | HHI.NPPN ---
Subjective History of Present Illness 56-year-old male with past medical history of chronic kidney disease, diabetes mellitus, history of cerebrovascular accident with hemiparesis, ischemic heart disease, hypertension, atrial fibrillation who came to the hospital with generalized weakness and dizziness. I was called to see the patient because of very high BUN and creatinine, metabolic acidosis and hyperkalemia. The patient has known history of chronic kidney disease and his baseline creatinine seems to me in the range of 1.6 to 2.2. Additional Remarks Patient is more awake , not in distress. Review of Systems General Constitutional: Fatigue Cardiovascular Cardiac: [id number] Objective Data Data 02/04/17 02/05/17 19:00 07:00 Intake Total 200 ml Balance 200 ml IV Total 200 ml Vital Signs Date Time Temp Pulse Resp B/P (MAP) Pulse Ox O2 Delivery O2 Flow Rate FiO2 02/04/17 13:00 85 14 164/96 (118) 02/04/17 13:00 85 02/04/17 12:30 85 02/04/17 12:30 85 15 154/89 (110) 02/04/17 12:00 85 14 155/93 (113) 02/04/17 12:00 85 02/04/17 11:00 87 02/04/17 11:00 98.4 87 0 160/104 (122) 02/04/17 10:58 Nasal Cannula 3.00 02/04/17 10:30 86 02/04/17 10:30 86 15 158/93 (114) 02/04/17 10:00 84 02/04/17 10:00 84 14 141/89 (106) 02/04/17 09:30 84 13 156/102 (120) 02/04/17 09:30 84 02/04/17 09:00 86 20 177/102 (127) 02/04/17 09:00 86 02/04/17 08:30 85 02/04/17 08:30 85 20 159/98 (118) 97 02/04/17 08:00 84 21 167/97 (120) 97 02/04/17 08:00 84 02/04/17 06:00 82 02/04/17 04:00 98.2 83 18 143/86 (105) 100 02/04/17 04:00 83 02/04/17 02:00 81 02/04/17 00:00 79 02/04/17 00:00 98.5 79 24 165/84 (111) 100 02/03/17 22:00 86 02/03/17 20:00 86 02/03/17 20:00 98.2 86 23 159/85 (109) 89 02/03/17 18:00 82 02/03/17 16:00 98.8 02/03/17 16:00 82 -: 02/04/17 0630 02/04/17 0630 Physical Exam General Appearance: No Acute Distress, Comfortable, Anxious Throat Throat Exam: Oral Mucosa [place] & Moist Pulmonary Resp Exam: Breath Sounds Equal, No Distress, Rhonchi, Decreased Bases, Diminished Breath Sounds Cardiology CV Exam: Arrhythmia Gastrointestinal/Abdomen GI Exam: Soft, Non-Tender, Bowel Sounds Present Extremeties Extremities Exam: Trace Edema Neurologic Neuro Exam: Alert, Awake Assessment/Plan Assessment Summary: ABNER/Acute Renal Failure, CKD Stage III Electrolyte Assessment: Hyperkalemia, Hypocalcemia, Metabolic Acidosis Problem List: (1) History of CVA (cerebrovascular accident) ICD Codes: Z86.73 - Personal history of transient ischemic attack (TIA), and cerebral infarction without residual deficits Status: Chronic (2) HTN (hypertension) ICD Codes: I10 - Essential (primary) hypertension Status: Chronic (3) Diabetes ICD Codes: E11.9 - Type 2 diabetes mellitus without complications Status: Acute (4) Metabolic acidemia ICD Codes: E87.2 - Acidosis (5) Hyperkalemia ICD Codes: E87.5 - Hyperkalemia Status: Acute (6) Acute renal failure ICD Codes: N17.9 - Acute kidney failure, unspecified Status: Acute Plan Patient has chronic kidney disease and develop ABNER. Also had metabolic acidosis and Hyperkalemia. Patient has HD 1 session then ARF resolved ATN resolving Creatinine 1.7 better with nutrition stable Afib Nephrology to follow less frequently Problem Qualifiers (1) HTN (hypertension): Qualified Codes: I10 - Essential (primary) hypertension (2) Diabetes: (3) Acute renal failure: Qualified Codes: N17.9 - Acute kidney failure, unspecified Parth Ruiz MD Feb 04, 2017 14:40
--- NOTE | 2017-02-04 15:58 | HHI.HCPN ---
Reason for visit a. To assist with evaluation and management of symptoms including: pain, weakness, decreased appetite. b. To assist medical decision maker(s) with: better understanding of current medical conditions; weighing benefits/burdens of medical treatment options; making medical treatment decisions. . Subjective/Interval History Patient seen in ICU to follow-up on comfort, goals. No family at bedside. Afebrile. Heart rate improved in the 80s. Hypertensive 140-170s/ 89-102. Patient arouses briefly to voice. His speech is difficult to understand and he falls off to sleep. Hemoglobin 8.2, was 6.3 yesterday. Post PRBC 02/03/17. Creatinine stable 1.75. Albumin 1.3. LE ultrasound normal. Patient remains on heparin drip. Notes indicate he is taking his PO meds. Appetite has improved, ate 100% of breakfast and lunch and 75% of dinner on 02/03/17. . Family/friend interactions No family at bedside. . Advance Directives Living Will: Never completed Health Care Surrogate: Never completed Durable Power of Metal Casket Assembler: Never completed Advance Directive Specifics Health Care Surrogate(s): Patient is incapacitated to make his own health care decisions, uncertain if he will regain capacity. Single. No children. Mother in a senior care with underlying schizophrenia, not capacitated herself. Father . 2 sisters and one brother. 2 sisters, Lizeth and Alejandrina do not wish to serve as healthcare proxy decision makers. Therefore, healthcare proxy decision-making will fall to the patient's brother,Isabela Andrews, he is willing to serve in this role. . Significant change in goals: FULL CODE. Goals remain aggressive. . Objective Vital Signs Date Time Temp Pulse Resp B/P (MAP) Pulse Ox O2 Delivery O2 Flow Rate FiO2 02/04/17 14:00 85 02/04/17 13:00 85 14 164/96 (118) 02/04/17 13:00 85 02/04/17 12:30 85 02/04/17 12:30 85 15 154/89 (110) 02/04/17 12:00 85 14 155/93 (113) 02/04/17 12:00 85 02/04/17 11:00 87 02/04/17 11:00 98.4 87 0 160/104 (122) 02/04/17 10:58 Nasal Cannula 3.00 02/04/17 10:30 86 02/04/17 10:30 86 15 158/93 (114) 02/04/17 10:00 84 02/04/17 10:00 84 14 141/89 (106) 02/04/17 09:30 84 13 156/102 (120) 02/04/17 09:30 84 02/04/17 09:00 86 20 177/102 (127) 02/04/17 09:00 86 02/04/17 08:30 85 02/04/17 08:30 85 20 159/98 (118) 97 02/04/17 08:00 84 21 167/97 (120) 97 02/04/17 08:00 84 02/04/17 06:00 82 02/04/17 04:00 98.2 83 18 143/86 (105) 100 02/04/17 04:00 83 02/04/17 02:00 81 02/04/17 00:00 79 02/04/17 00:00 98.5 79 24 165/84 (111) 100 02/03/17 22:00 86 02/03/17 20:00 86 02/03/17 20:00 98.2 86 23 159/85 (109) 89 02/03/17 18:00 82 02/03/17 16:00 98.8 02/03/17 16:00 82 Intake & Output 02/04/17 02/04/17 07:00 19:00 Intake Total 2220 ml 300 ml Balance 2220 ml 300 ml IV Total 2220 ml 300 ml # Voids 4 # Bowel Movements 0 Physical Exam CONSTITUTIONAL/GENERAL: This is an adequately nourished patient,alert, cooperative. eating dinner (being fed by family) TUBES/LINES/DRAINS: PIV LUE, NC, condom catheter. SKIN: Skin warm/dry CARDIOVASCULAR: Irregular,no murmur. Trace edema to UE. RESPIRATORY/CHEST: Unlabored respirations on NC. Decreased to bases GASTROINTESTINAL: Abdomen soft, non-tender, nondistended. No guarding. Bowel sounds normoactive GENITOURINARY: Without palpable bladder distension. 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 trace edema BUE NEUROLOGICAL: awakens, lethargic. Difficult to understand his speech. PSYCHIATRIC: no apparent distress/anxiety . Diagnostic Tests Laboratory Laboratory Tests Test 02/02/17 05:00 02/02/17 11:40 02/02/17 17:08 02/03/17 04:59 White Blood Count 19.3 TH/MM3 (4.0-11.0) 15.1 TH/MM3 (4.0-11.0) Red Blood Count 2.62 MIL/MM3 (4.50-5.90) 2.13 MIL/MM3 (4.50-5.90) Hemoglobin 7.2 GM/DL (13.0-17.0) 7.5 GM/DL (13.0-17.0) 6.3 GM/DL (13.0-17.0) Hematocrit 22.9 % (39.0-51.0) 23.9 % (39.0-51.0) 18.9 % (39.0-51.0) Mean Corpuscular Volume 87.7 FL (80.0-100.0) 88.7 FL (80.0-100.0) Mean Corpuscular Hemoglobin 27.7 PG (27.0-34.0) 29.5 PG (27.0-34.0) Mean Corpuscular Hemoglobin Concent 31.6 % (32.0-36.0) 33.3 % (32.0-36.0) Red Cell Distribution Width 14.7 % (11.6-17.2) 14.9 % (11.6-17.2) Platelet Count 291 TH/MM3 (150-450) 238 TH/MM3 (150-450) Mean Platelet Volume 8.8 FL (7.0-11.0) 8.3 FL (7.0-11.0) Neutrophils (%) (Auto) 87.2 % (16.0-70.0) 79.5 % (16.0-70.0) Lymphocytes (%) (Auto) 6.9 % (9.0-44.0) 10.6 % (9.0-44.0) Monocytes (%) (Auto) 4.5 % (0.0-8.0) 7.9 % (0.0-8.0) Eosinophils (%) (Auto) 0.6 % (0.0-4.0) 1.3 % (0.0-4.0) Basophils (%) (Auto) 0.8 % (0.0-2.0) 0.7 % (0.0-2.0) Neutrophils # (Auto) 16.8 TH/MM3 (1.8-7.7) 12.0 TH/MM3 (1.8-7.7) Lymphocytes # (Auto) 1.3 TH/MM3 (1.0-4.8) 1.6 TH/MM3 (1.0-4.8) Monocytes # (Auto) 0.9 TH/MM3 (0-0.9) 1.2 TH/MM3 (0-0.9) Eosinophils # (Auto) 0.1 TH/MM3 (0-0.4) 0.2 TH/MM3 (0-0.4) Basophils # (Auto) 0.1 TH/MM3 (0-0.2) 0.1 TH/MM3 (0-0.2) CBC Comment AUTO DIFF DIFF FINAL Differential Comment AUTO DIFF CONFIRMED Activated Partial Thromboplast Time 64.1 SEC (24.3-30.1) 65.1 SEC (24.3-30.1) 72.3 SEC (24.3-30.1) Blood Urea Nitrogen 24 MG/DL (7-18) 25 MG/DL (7-18) Creatinine 1.94 MG/DL (0.60-1.30) 1.83 MG/DL (0.60-1.30) Random Glucose 123 MG/DL (74-106) 143 MG/DL (74-106) Total Protein 7.5 GM/DL (6.4-8.2) 7.0 GM/DL (6.4-8.2) Albumin 1.3 GM/DL (3.4-5.0) 1.2 GM/DL (3.4-5.0) Calcium Level 7.7 MG/DL (8.5-10.1) 7.6 MG/DL (8.5-10.1) Alkaline Phosphatase 76 U/L (45-117) 63 U/L (45-117) Aspartate Amino Transf (AST/SGOT) 71 U/L (15-37) 56 U/L (15-37) Alanine Aminotransferase (ALT/SGPT) 6 U/L (12-78) 6 U/L (12-78) Total Bilirubin 0.6 MG/DL (0.2-1.0) 0.5 MG/DL (0.2-1.0) Sodium Level 135 MEQ/L (136-145) 134 MEQ/L (136-145) Potassium Level 4.3 MEQ/L (3.5-5.1) 4.5 MEQ/L (3.5-5.1) Chloride Level 106 MEQ/L (98-107) 105 MEQ/L (98-107) Carbon Dioxide Level 21.2 MEQ/L (21.0-32.0) 21.9 MEQ/L (21.0-32.0) Anion Gap 8 MEQ/L (5-15) 7 MEQ/L (5-15) Estimat Glomerular Filtration Rate 44 ML/MIN (>89) 47 ML/MIN (>89) Iron Level 31 MCG/DL (65-175) Total Iron Binding Capacity 130 MCG/DL (250-450) Percent Iron Saturation 23.8 % (20-50) Ferritin 1418 NG/ML (26-388) Test 02/03/17 16:51 02/04/17 06:30 Activated Partial Thromboplast Time 52.0 SEC (24.3-30.1) 60.5 SEC (24.3-30.1) White Blood Count 13.4 TH/MM3 (4.0-11.0) Red Blood Count 2.82 MIL/MM3 (4.50-5.90) Hemoglobin 8.2 GM/DL (13.0-17.0) Hematocrit 24.2 % (39.0-51.0) Mean Corpuscular Volume 85.8 FL (80.0-100.0) Mean Corpuscular Hemoglobin 28.9 PG (27.0-34.0) Mean Corpuscular Hemoglobin Concent 33.7 % (32.0-36.0) Red Cell Distribution Width 15.7 % (11.6-17.2) Platelet Count 240 TH/MM3 (150-450) Mean Platelet Volume 8.2 FL (7.0-11.0) Neutrophils (%) (Auto) 81.7 % (16.0-70.0) Lymphocytes (%) (Auto) 8.0 % (9.0-44.0) Monocytes (%) (Auto) 9.0 % (0.0-8.0) Eosinophils (%) (Auto) 1.0 % (0.0-4.0) Basophils (%) (Auto) 0.3 % (0.0-2.0) Neutrophils # (Auto) 10.9 TH/MM3 (1.8-7.7) Lymphocytes # (Auto) 1.1 TH/MM3 (1.0-4.8) Monocytes # (Auto) 1.2 TH/MM3 (0-0.9) Eosinophils # (Auto) 0.1 TH/MM3 (0-0.4) Basophils # (Auto) 0.0 TH/MM3 (0-0.2) CBC Comment AUTO DIFF Differential Comment AUTO DIFF CONFIRMED Target Cells 1+ (NORMAL) Blood Urea Nitrogen 21 MG/DL (7-18) Creatinine 1.75 MG/DL (0.60-1.30) Random Glucose 129 MG/DL (74-106) Total Protein 7.3 GM/DL (6.4-8.2) Albumin 1.3 GM/DL (3.4-5.0) Calcium Level 7.7 MG/DL (8.5-10.1) Phosphorus Level 3.5 MG/DL (2.5-4.9) Magnesium Level 1.3 MG/DL (1.5-2.5) Alkaline Phosphatase 61 U/L (45-117) Aspartate Amino Transf (AST/SGOT) 57 U/L (15-37) Alanine Aminotransferase (ALT/SGPT) 6 U/L (12-78) Total Bilirubin 0.8 MG/DL (0.2-1.0) Sodium Level 135 MEQ/L (136-145) Potassium Level 4.2 MEQ/L (3.5-5.1) Chloride Level 105 MEQ/L (98-107) Carbon Dioxide Level 21.7 MEQ/L (21.0-32.0) Anion Gap 8 MEQ/L (5-15) Estimat Glomerular Filtration Rate 49 ML/MIN (>89) Result Diagram: 02/04/1762902/04/17629 Microbiology Microbiology Date/Time Source Procedure Growth Status 02/01/17 06:12 Blood Peripheral Aerobic Blood Culture - Preliminary NO GROWTH IN 3 DAYS Resulted 02/01/17 06:12 Blood Peripheral Anaerobic Blood Culture - Preliminary NO GROWTH IN 3 DAYS Resulted 01/23/17 14:26 Urine Clean Catch Urine Culture - Final Staphylococcus Aureus Complete Imaging Last Impressions Lower Extremity Ultrasound 02/04/17 0000 Signed Impressions: Service Date/Time: Saturday, February 04, 2017 07:41 - CONCLUSION: Normal examination. Jermaine Malone Jr., MD Abdomen/Pelvis CT 01/28/17 0000 Signed Impressions: Service Date/Time: Saturday, January 28, 2017 20:18 - CONCLUSION: 1. Bilateral pleural effusions and bibasilar infiltrates. 2. Cardiomegaly. 3. Subcutaneous edema. 4. Umbilical hernia. Jermaine Malone Jr., MD Abdomen X-Ray 01/25/17 0000 Signed Impressions: Service Date/Time: Wednesday, January 25, 2017 14:33 - CONCLUSION: Nonspecific, nonobstructive bowel gas pattern. Scot Sung MD Upper Extremity Ultrasound 01/23/17 0000 Signed Impressions: Service Date/Time: Monday, January 23, 2017 17:45 - CONCLUSION: Thrombus identified within the internal jugular, subclavian, and the basilic veins. Jeyson Luciano MD Chest X-Ray 01/21/17 0000 Signed Impressions: Service Date/Time: Saturday, January 21, 2017 22:42 - CONCLUSION: New hazy opacity in both lungs with concern for ovarian edema and congestive heart failure. Jose Espinal MD Head CT 01/10/17 1257 Signed Impressions: Service Date/Time: Tuesday, January 10, 2017 13:32 - CONCLUSION: No acute disease. Jermaine Malone Jr., MD Renal Ultrasound 01/10/17 0000 Signed Impressions: Service Date/Time: Tuesday, January 10, 2017 17:01 - CONCLUSION: Normal examination. Jermaine Malone Jr., MD Assessment and Plan Disease Oriented Problem List: (1) Leukocytosis (2) Malnutrition (3) HTN (hypertension) (4) Atrial flutter (5) Acute metabolic encephalopathy (6) Acute on chronic kidney failure (7) Diabetes Symptom Scale: (1) Pain 0-10 Scale: Unable to quantify Comment: Patient not answering most questions. (2) Weakness 0-10 Scale: Unable to quantify Comment: Secondary to prior CVA, left hemiparesis (3) Decreased appetite 0-10 Scale: Unable to quantify Comment: eating very little Pertinent Non-Medical Issues Psychosocial: Single. No children. Disabled. Brother, Isabela Andrews is serving as healthcare proxy decision maker per [place] statutes. Spiritual: Yarsanism caroline. Legal:Patient deemed incapacitated per psychiatry to make his own health care decisions, uncertain if he will regain capacity. Single. No children. Mother in a senior care with underlying schizophrenia, not capacitated herself. Father . 2 sisters and one brother. 2 sisters, Lizeth and Alejandrina do not wish to serve as healthcare proxy decision makers. Therefore, healthcare proxy decision-making will fall to the patient's brother,Isabela Andrews, he is willing to serve in this role. Ethical issues impacting care: no known concerns at this time. . Important Contacts * Isabela Andrews, brother/HCP: [phone] * Christy Colon, ex sister in law ([place] ex- - who pt trusts): * Alta Andrews, sister opted out of HCP decision-making and [phone] * Alejandrina sifuentes, sister, opted out of HCP decision [phone] * Kylee Kendall, mother, incapacitated, in SNF . Prognosis Mr. Andrews is a 56-year-old male with long history of noncompliance, refusing medication, questionable underlying psychiatric disease, admitted with acute on chronic renal failure, coronary artery disease, atrial fib/flutter refusing medications. Patient remains high risk for repeat hospitalization, further decline or even . Uncertain if patient has underlying psychiatric disease if this was treated would he be more readily open to taking medications. Will attempt to discuss with psychiatry. Family feels patient has had psychiatric issues since he was a child that were never diagnosed. . Code Status: Full Code Plan * Decision Maker: Patient deemed incapacitated per psychiatry to make his own health care decisions, uncertain if he will regain capacity. Single. No children. Mother in a senior care with underlying schizophrenia, not capacitated herself. Father . 2 sisters and one brother. 2 sisters, Lizeth and Alejandrina do not wish to serve as healthcare proxy decision makers. Therefore, healthcare proxy decision-making will fall to the patient's brother, Yareli Andrews, he is willing to serve in this role. * FULL CODE - DNR revoked by Yareli (HCP) on 01/23/17. * Goals remain aggressive. * SYMPTOMS: Pain: no obvious signs of pain during my visit. Weakness: debility due to prior stroke. Anorexia/poor appetite: appetite continues to generally be poor, though fluctuates.Eats better when family feeds.albumin 1.3 * Palliative care will continue to follow throughout hospital course to assist with symptom management and clarification of goals as needed. . Attestation To help prompt me to consider important information that might be impacting today's encounter and assessment, information from prior notes written by myself or my colleagues may have been "brought forward" into today's note. My signature on this note, however, is an attestation that I personally performed the exam, history, and/or decision-making noted today, and, unless otherwise indicated, the interactions with patient, family, and staff as well as the review of records all occurred today. I also attest that the listed assessment and stated plan reflect my best clinical judgment today based on the combination of historical information, prior notes, and today's exam/ interactions. When time spent is documented, it refers only to time spent today by the signer, or if indicated, combined time spent today by collaborating physician/nurse practitioner. Dariana Stephen Feb 04, 2017 15:58
[2017-02-04] MEDS: hydrALAZINE HCL 20 MG/ML VIAL IV PUSH PRN (18:12)
[2017-02-04] MEDS: ATORVASTATIN 80 MG TAB PO SCH (21:55)
[2017-02-05] VITALS (28 sets, daily range): BP systolic 107–196; BP diastolic 65–95; PULSE 84–152; RESP 4–29; TEMP 98.2–98.9; O2SAT 96–100
[2017-02-05] MEDS: RIFAMPIN 150 MG CAP PO SCH ×2 (00:30→12:14)
[2017-02-05] MEDS: METOCLOPRAMIDE HCL 10 MG/2 ML VIAL IV PUSH SCH ×3 (00:30→16:37)
[2017-02-05] MEDS: DILTIAZEM HCL 30 MG TAB PO SCH ×5 (00:30→23:45)
[2017-02-05] MEDS: OXACILLIN INJ 2 GM in SODIUM CHLORIDE 0.9% INJ 100 ML IV SCH ×7 (00:33→23:45)
[2017-02-05] MEDS: INSULIN NovoLIN REGULAR SUPPLEMENTAL SCALE SQ SCH ×5 (00:41→23:45)
[2017-02-05] MEDS: SODIUM CHLOR 0.9% 1000 ML INJ 1,000 ML IV SCH (00:43)
[2017-02-05] MEDS ORDERED: DILTIAZEM HCL 25 MG/5 ML VIAL IV ONE (02:15)
[2017-02-05] MEDS: CHLORHEXIDINE GLUCONATE 2 % 1 PACK (2 CLOTHS) TOP SCH (02:42)
[2017-02-05] MEDS ORDERED: SODIUM CHLORID 0.9% 500 ML INJ 500 ML IV ONE ×2 (03:15→05:15)
[2017-02-05] MEDS ORDERED: METOPROLOL TARTRATE 5 MG/5 ML VIAL IV PUSH ONE ×2 (04:15→05:15)
[2017-02-05] MEDS ORDERED: AMIODARONE INJ 150 MG in DEXTROSE 5% IN WATER 100ML INJ 97 ML IV ONE ×2 (06:16)
[2017-02-05 06:21] LABS: ALT (GPT) 8 U/L (12-78); ANION GAP 6 MEQ/L (5-15); AST (GOT) 55 U/L (15-37); BICARBONATE 23.2 MEQ/L (21.0-32.0); BLOOD UREA NITROGEN 19 MG/DL (7-18); CHLORIDE 106 MEQ/L (98-107); GLOMERULAR FILTRATION RATE 54 ML/MIN (>89); MAGNESIUM 1.5 MG/DL (1.5-2.5); POTASSIUM 4.3 MEQ/L (3.5-5.1); SODIUM (NA) 135 MEQ/L (136-145)
[2017-02-05 06:23] LABS: ALKALINE PHOSPHATASE 76 U/L (45-117); TOTAL BILIRUBIN ADULT 0.6 MG/DL (0.2-1.0)
[2017-02-05] MEDS: AMIODARONE INJ 450 MG in DEXTROSE 5% IN WATE(EXCEL) INJ 241 ML IV PRN ×4 (06:55→16:29)
[2017-02-05] MEDS: HEPARIN-D5W 25,000 U/250 ML 250 ML IV PRN (07:00)
[2017-02-05] MEDS: CALCIUM CARBONATE 1.25 GM (CA 500 MG) TAB PO SCH ×3 (08:25→16:29)
[2017-02-05] MEDS: METOPROLOL TARTRATE 50 MG TAB PO SCH ×2 (08:26→20:54)
[2017-02-05] MEDS: ASPIRIN EC 81 MG TABEC PO SCH (08:26)
[2017-02-05] MEDS: DOCUSATE SODIUM 50 MG/SENNA 8.6 MG TAB PO SCH ×2 (08:26→20:53)
[2017-02-05] MEDS: QUEtiapine FUMARATE 25 MG TAB PO SCH ×2 (08:26→20:53)
[2017-02-05] MEDS: SODIUM CHLORIDE 0.9% FLUSH 10 ML FLUSH IV FLUSH SCH ×2 (08:26→20:54)
[2017-02-05] MEDS: guaiFENesin E.R. 600 MG TAB PO SCH ×2 (08:26→20:54)
[2017-02-05] MEDS: INSULIN DETEMIR 100 UNITS/ML VIAL SQ SCH ×2 (08:27→20:55)
[2017-02-05] MEDS: NYSTATIN 100,000 U/GM PWD 15 GM BTL TOPICAL SCH ×2 (08:27→20:55)
[2017-02-05] MEDS: POTASSIUM PHOSPHATE MONOBASIC 500 MG TAB PO SCH ×2 (08:27→20:53)
--- NOTE | 2017-02-05 11:12 | HHI.PR ---
Subjective Remarks HAS MSSA ON OXACILLIN BEING TRANSFUSED 2 UNITS PRBC NEEDS TO TRANSITION OFF CARDIZEM DRIP SWITCH TO PO DW RN AND PT 11-15 HAD RIGHT LE PAIN- US NEGATIVE FOR DVT HYPOMAG- WILL REPLACE DW RN AND PT OK FOR OUT OF ICU PT AND OT EVAL AND TREAT -16 STARTED ON AMIODARONE DRIP FOR HIS AFIB NO BM WILL GIVE DULCOLAX SUPP NOW DW RN AND PT AM LABS Objective Vitals Vital Signs Date Time Temp Pulse Resp B/P (MAP) Pulse Ox O2 Delivery O2 Flow Rate FiO2 02/05/17 10:30 98 02/05/17 10:30 98 4 113/65 (81) 02/05/17 10:30 98 4 113/65 (81) 02/05/17 10:00 99 22 107/68 (81) 02/05/17 10:00 99 22 107/68 (81) 02/05/17 10:00 99 02/05/17 09:31 95 02/05/17 09:31 95 23 135/76 (95) 02/05/17 09:31 95 23 135/76 (95) 02/05/17 09:00 109 29 123/73 (90) 02/05/17 09:00 109 29 123/73 (90) 02/05/17 09:00 109 02/05/17 08:30 106 21 125/74 (91) 02/05/17 08:30 106 02/05/17 08:30 106 21 125/74 (91) 02/05/17 08:00 99 02/05/17 08:00 99 127/78 (94) 99 02/05/17 08:00 99 127/78 (94) 99 02/05/17 07:30 116 143/78 (99) 97 02/05/17 07:00 128 15 117/76 (90) 99 02/05/17 07:00 99 Nasal Cannula 2.00 21 02/05/17 06:55 135 125/83 02/05/17 06:54 130 125/83 02/05/17 06:00 137 02/05/17 04:19 99 Nasal Cannula 2.00 02/05/17 04:00 152 02/05/17 04:00 98.9 152 17 131/68 (89) 98 02/05/17 02:00 145 02/05/17 00:06 98 3.00 02/05/17 00:00 98.8 84 21 146/95 (112) 98 02/05/17 00:00 84 02/04/17 22:00 86 02/04/17 20:00 99.1 90 21 161/87 (111) 95 02/04/17 20:00 90 02/04/17 19:00 95 Nasal Cannula 3.00 02/04/17 18:00 79 02/04/17 17:00 81 02/04/17 16:00 78 02/04/17 16:00 98.5 78 24 161/94 (116) 02/04/17 15:00 80 02/04/17 15:00 80 27 159/84 (109) 02/04/17 14:00 85 02/04/17 14:00 80 24 159/93 (115) 02/04/17 13:00 85 14 164/96 (118) 02/04/17 13:00 85 02/04/17 12:30 85 02/04/17 12:30 85 15 154/89 (110) 02/04/17 12:00 85 14 155/93 (113) 02/04/17 12:00 85 I/O 02/04/17 02/04/17 02/04/17 02/05/17 02/05/17 02/05/17 07:00 15:00 23:00 07:00 15:00 23:00 Intake Total 2120 ml 200 ml 580 ml 1946 ml Balance 2120 ml 200 ml 580 ml 1946 ml Intake Oral 480 ml 120 ml IV Total 2120 ml 200 ml 100 ml 1826 ml # Voids 4 4 4 # Bowel Movements 0 0 Result Diagram: 02/04/17 0630 02/05/17 0526 Other Results Laboratory Tests Test 02/02/17 11:40 02/02/17 17:08 02/03/17 04:59 02/03/17 16:51 Activated Partial Thromboplast Time 65.1 SEC 72.3 SEC 52.0 SEC Hemoglobin 7.5 GM/DL 6.3 GM/DL Hematocrit 23.9 % 18.9 % White Blood Count 15.1 TH/MM3 Red Blood Count 2.13 MIL/MM3 Mean Corpuscular Volume 88.7 FL Mean Corpuscular Hemoglobin 29.5 PG Mean Corpuscular Hemoglobin Concent 33.3 % Red Cell Distribution Width 14.9 % Platelet Count 238 TH/MM3 Mean Platelet Volume 8.3 FL Neutrophils (%) (Auto) 79.5 % Lymphocytes (%) (Auto) 10.6 % Monocytes (%) (Auto) 7.9 % Eosinophils (%) (Auto) 1.3 % Basophils (%) (Auto) 0.7 % Neutrophils # (Auto) 12.0 TH/MM3 Lymphocytes # (Auto) 1.6 TH/MM3 Monocytes # (Auto) 1.2 TH/MM3 Eosinophils # (Auto) 0.2 TH/MM3 Basophils # (Auto) 0.1 TH/MM3 CBC Comment DIFF FINAL Differential Comment Blood Urea Nitrogen 25 MG/DL Creatinine 1.83 MG/DL Random Glucose 143 MG/DL Total Protein 7.0 GM/DL Albumin 1.2 GM/DL Calcium Level 7.6 MG/DL Alkaline Phosphatase 63 U/L Aspartate Amino Transf (AST/SGOT) 56 U/L Alanine Aminotransferase (ALT/SGPT) 6 U/L Total Bilirubin 0.5 MG/DL Sodium Level 134 MEQ/L Potassium Level 4.5 MEQ/L Chloride Level 105 MEQ/L Carbon Dioxide Level 21.9 MEQ/L Anion Gap 7 MEQ/L Estimat Glomerular Filtration Rate 47 ML/MIN Test 02/04/17 06:30 02/05/17 05:26 White Blood Count 13.4 TH/MM3 Red Blood Count 2.82 MIL/MM3 Hemoglobin 8.2 GM/DL Hematocrit 24.2 % Mean Corpuscular Volume 85.8 FL Mean Corpuscular Hemoglobin 28.9 PG Mean Corpuscular Hemoglobin Concent 33.7 % Red Cell Distribution Width 15.7 % Platelet Count 240 TH/MM3 Mean Platelet Volume 8.2 FL Neutrophils (%) (Auto) 81.7 % Lymphocytes (%) (Auto) 8.0 % Monocytes (%) (Auto) 9.0 % Eosinophils (%) (Auto) 1.0 % Basophils (%) (Auto) 0.3 % Neutrophils # (Auto) 10.9 TH/MM3 Lymphocytes # (Auto) 1.1 TH/MM3 Monocytes # (Auto) 1.2 TH/MM3 Eosinophils # (Auto) 0.1 TH/MM3 Basophils # (Auto) 0.0 TH/MM3 CBC Comment AUTO DIFF Differential Comment AUTO DIFF CONFIRMED Target Cells 1+ Activated Partial Thromboplast Time 60.5 SEC Blood Urea Nitrogen 21 MG/DL 19 MG/DL Creatinine 1.75 MG/DL 1.61 MG/DL Random Glucose 129 MG/DL 118 MG/DL Total Protein 7.3 GM/DL 7.2 GM/DL Albumin 1.3 GM/DL 1.2 GM/DL Calcium Level 7.7 MG/DL 7.7 MG/DL Phosphorus Level 3.5 MG/DL 3.4 MG/DL Magnesium Level 1.3 MG/DL 1.5 MG/DL Alkaline Phosphatase 61 U/L 76 U/L Aspartate Amino Transf (AST/SGOT) 57 U/L 55 U/L Alanine Aminotransferase (ALT/SGPT) 6 U/L 8 U/L Total Bilirubin 0.8 MG/DL 0.6 MG/DL Sodium Level 135 MEQ/L 135 MEQ/L Potassium Level 4.2 MEQ/L 4.3 MEQ/L Chloride Level 105 MEQ/L 106 MEQ/L Carbon Dioxide Level 21.7 MEQ/L 23.2 MEQ/L Anion Gap 8 MEQ/L 6 MEQ/L Estimat Glomerular Filtration Rate 49 ML/MIN 54 ML/MIN Imaging Last Impressions Lower Extremity Ultrasound 02/04/17 0000 Signed Impressions: Service Date/Time: Saturday, February 04, 2017 07:41 - CONCLUSION: Normal examination. Jermaine Malone Jr., MD Abdomen/Pelvis CT 01/28/17 0000 Signed Impressions: Service Date/Time: Saturday, January 28, 2017 20:18 - CONCLUSION: 1. Bilateral pleural effusions and bibasilar infiltrates. 2. Cardiomegaly. 3. Subcutaneous edema. 4. Umbilical hernia. Jermaine Malone Jr., MD Abdomen X-Ray 01/25/17 0000 Signed Impressions: Service Date/Time: Wednesday, January 25, 2017 14:33 - CONCLUSION: Nonspecific, nonobstructive bowel gas pattern. Scot Sung MD Upper Extremity Ultrasound 01/23/17 0000 Signed Impressions: Service Date/Time: Monday, January 23, 2017 17:45 - CONCLUSION: Thrombus identified within the internal jugular, subclavian, and the basilic veins. Jeyson Luciano MD Chest X-Ray 01/21/17 0000 Signed Impressions: Service Date/Time: Saturday, January 21, 2017 22:42 - CONCLUSION: New hazy opacity in both lungs with concern for ovarian edema and congestive heart failure. Jose Espinal MD Head CT 01/10/17 1257 Signed Impressions: Service Date/Time: Tuesday, January 10, 2017 13:32 - CONCLUSION: No acute disease. Jermaine Malone Jr., MD Renal Ultrasound 01/10/17 0000 Signed Impressions: Service Date/Time: Tuesday, January 10, 2017 17:01 - CONCLUSION: Normal examination. Jermaine Malone Jr., MD Objective Remarks GENERAL: AWAKE ALERT AND ORIENTED TALKATIVE AND COOPERATIVE SKIN: Warm and dry. HEAD: Atraumatic. Normocephalic. EYES: Pupils equal and round. No scleral icterus. No injection or drainage. EOMI ENT: No nasal bleeding or discharge. Mucous membranes pink and moist. TONGUE IS MIDLINE NECK: Trachea midline. No JVD. SUPPLE CARDIOVASCULAR: IRRegular rate and rhythm. S1, S2 NO S3 OR S4 RESPIRATORY: No accessory muscle use. Clear to auscultation. Breath sounds equal bilaterally. GASTROINTESTINAL: Abdomen soft, non-tender, nondistended. Hepatic and splenic margins not palpable. MUSCULOSKELETAL: Extremities without clubbing, cyanosis, or edema. No obvious deformities. NEUROLOGICAL: Awake and alert. No obvious cranial nerve deficits. Motor grossly within normal limits. Five out of 5 muscle strength in the arms and legs. Normal speech. PSYCHIATRIC: Appropriate mood and affect; insight and judgment normal.SOME CONFUSION Procedures LIGIA Medications and IVs Current Medications Meclizine HCl (Antivert) 25 mg ONCE ONCE PO Last administered on 01/10/17 13 :42; Start 01/10/17 at 13:00; Stop 01/10/17 at 13:01; Status DC Sodium Chloride (NS Flush) 2 ml UNSCH PRN IVF FLUSH AFTER USING IV ACCESS; Start 01/10/17 at 13:00; Stop 01/10/17 at 22:25; Status DC Acetaminophen (Tylenol) 650 mg ONCE ONCE PO Last administered on 01/10/17 14 :07; Start 01/10/17 at 14:00; Stop 01/10/17 at 14:01; Status DC Insulin Human Regular (NovoLIN R INJ) 10 units ONCE ONCE IV PUSH Last administered on 01/10/17 16:14; Start 01/10/17 at 16:00; Stop 01/10/17 at 16 :01; Status DC Dextrose (D50w (Syr) Inj) 25 ml ONCE ONCE IV PUSH Last administered on 16:10; Start 01/10/17 at 16:00; Stop 01/10/17 at 16:01; Status DC Calcium Gluconate (Calcium Gluconate Inj) 1 gm ONCE ONCE IV PUSH Last administered on 01/10/17 16:09; Start 01/10/17 at 16:00; Stop 01/10/17 at 16 :01; Status DC Sodium Polystyrene Sulfonate (Kayexalate Liq) 15 gm ONCE ONCE PO ; Start 01/10 at 16:00; Stop 01/10/17 at 16:01; Status DC Sodium Bicarbonate 200 meq/Sodium Chloride 1,200 ml @ 100 mls/hr Q12H IV ; Start 01/10/17 at 16:15; Stop 01/11/17 at 14:47; Status DC Sodium Chloride 1,000 ml @ 999 mls/hr BOLUS ONCE IV Last administered on 16:43; Start 01/10/17 at 16:15; Stop 01/10/17 at 17:15; Status DC Sodium Chloride 1,000 ml @ 999 mls/hr BOLUS ONCE IV Last administered on 16:44; Start 01/10/17 at 16:15; Stop 01/10/17 at 17:15; Status DC Sodium Bicarbonate (Sodium Bicarbonate 8.4% Inj) 50 meq STK-MED ONCE .ROUTE ; Start 01/10/17 at 16:23; Stop 01/10/17 at 16:43; Status DC Sodium Bicarbonate 200 meq/Sterile Water 1,050 ml @ 150 mls/hr Q7H IV Last administered on 01/11/17 08:22; Start 01/10/17 at 16:45; Stop 01/11/17 at 14 :47; Status DC Sodium Chloride 1,000 ml @ 999 mls/hr BOLUS ONCE IV Last administered on 17:23; Start 01/10/17 at 17:00; Stop 01/10/17 at 18:00; Status DC Sodium Chloride 1,000 ml @ 999 mls/hr BOLUS ONCE IV Last administered on 17:23; Start 01/10/17 at 17:00; Stop 01/10/17 at 18:00; Status DC Sodium Chloride 1,000 ml @ 999 mls/hr BOLUS ONCE IV Last administered on 17:40; Start 01/10/17 at 17:00; Stop 01/10/17 at 18:00; Status DC Acetaminophen (Tylenol) 650 mg Q6H PRN PO PAIN SCALE 1 TO 4 Last administered on 02/01/17 00:12; Start 01/10/17 at 17:00 Albuterol Sulfate (Proair Hfa Inh) 2 puff Q6H PRN INH SHORTNESS OF BREATH; Start 01/10/17 at 17:00 Atorvastatin Calcium (Lipitor) 80 mg HS PO Last administered on 02/04/17 21: 55; Start 01/10/17 at 21:00 Nitroglycerin (Nitrostat Sl) 0.4 mg Q3H PRN SL CHEST PAIN; Start 01/10/17 at 17:00 Aspirin (Ecotrin Ec) 81 mg DAILY PO Last administered on 02/05/17 08:26; Start 01/10/17 at 17:00 Heparin Sodium/ Dextrose 250 ml @ 10 mls/hr TITRATE PRN IV Coagulation management Last administered on 01/11/17 01:03; Start 01/10/17 at 17:00; Stop 01/11/17 at 17:15; Status DC Insulin Aspart (NovoLOG SUPPLEMENTAL SCALE) 1 Q4H SQ Last administered on 04:39; Start 01/10/17 at 17:00; Stop 01/23/17 at 08:38; Status DC Sodium Chloride (NS Flush) 2 ml UNSCH PRN IV FLUSH FLUSH AFTER USING IV ACCESS ; Start 01/10/17 at 17:15; Stop 01/11/17 at 14:50; Status DC Sodium Chloride (NS Flush) 2 ml BID IV FLUSH Last administered on 02/05/17 08 :26; Start 01/10/17 at 21:00 Pantoprazole Sodium (Protonix) 40 mg DAILY PO ; Start 01/11/17 at 09:00; Stop 01/11/17 at 17:15; Status DC Miscellaneous Information 1 Q361D XX ; Start 01/10/17 at 17:15 Chlorhexidine Gluconate (Chlorhexidine 2% Cloth) Taper DAILY@04 TOP Last administered on 02/04/17 05:28; Start 01/11/17 at 04:00; Stop 01/07/18 at 03 :59 Chlorhexidine Gluconate (Chlorhexidine 2% Cloth) 3 pack UNSCH PRN TOP HYGIENIC CARE; Start 01/10/17 at 17:15 Senna/Docusate Sodium (Afia-Colace) 1 tab BID PO Last administered on 08:26; Start 01/10/17 at 21:00 Magnesium Hydroxide (Milk Of Magnesia Liq) 30 ml Q12H PRN PO Mild constipation Last administered on 02/04/17 08:51; Start 01/10/17 at 17:15 Sennosides (Senokot) 17.2 mg Q12H PRN PO Moderate constipation; Start at 17:15 Bisacodyl (Dulcolax Supp) 10 mg DAILY PRN RECTAL SEVERE CONSITIPATION; Start 01/10/17 at 17:15 Lactulose (Lactulose Liq) 30 ml DAILY PRN PO SEVERE CONSITIPATION Last administered on 02/04/17 08:51; Start 01/10/17 at 17:15 Sodium Bicarbonate 0 ml @ As Directed STK-MED ONCE .ROUTE ; Start 01/10/17 at 17:23; Stop 01/10/17 at 17:24; Status DC Sodium Bicarbonate (Sodium Bicarbonate 8.4% Inj) 50 meq STK-MED ONCE .ROUTE ; Start 01/10/17 at 17:23; Stop 01/10/17 at 17:24; Status DC Sodium Chloride 1,000 ml @ 0 mls/hr Q0M PRN OTHER For Prime & Rinse Back Last administered on 01/10/17 22:05; Start 01/10/17 at 17:47; Stop 02/03/17 at 12 :19; Status DC Heparin Sodium (Porcine) (Heparin Inj) 8,000 units UNSCH PRN IV FLUSH WITH DIALYSIS; Start 01/10/17 at 18:00; Stop 01/24/17 at 11:56; Status DC Sodium Chloride 1,000 ml @ 200 mls/hr Q5H PRN IV WITH DIALYSIS; Start at 17:47; Stop 02/03/17 at 12:19; Status DC Sodium Chloride 1,000 ml @ 0 mls/hr Q0M PRN OTHER WITH DIALYSIS; Start at 17:47; Stop 02/03/17 at 12:19; Status DC Mannitol (Mannitol Inj) 12.5 gm UNSCH PRN IV WITH DIALYSIS; Start 01/10/17 at 18:00; Stop 02/03/17 at 12:19; Status DC Albumin Human 100 ml @ 60 mls/hr UNSCH PRN IV WITH DIALYSIS; Start 01/10/17 at 18:00; Stop 02/03/17 at 12:19; Status DC Sodium Chloride (NS Flush) 5 ml UNSCH PRN IV FLUSH WITH DIALYSIS; Start at 18:00; Stop 02/03/17 at 12:19; Status DC Heparin Sodium (Porcine) (Heparin Inj) UNSCH PRN .XX WITH DIALYSIS; Start at 18:00; Stop 02/03/17 at 12:19; Status DC Gentamicin Sulfate (Gentamicin (Dialysis) Inj) 20 mg UNSCH PRN OTHER WITH DIALYSIS Last administered on 01/10/17 22:03; Start 01/10/17 at 18:00; Stop 02/03/17 at 12:19; Status DC Ondansetron HCl (Zofran Inj) 4 mg UNSCH PRN IV PUSH WITH DIALYSIS Last administered on 01/18/17 08:51; Start 01/10/17 at 18:00; Stop 02/03/17 at 12 :19; Status DC Acetaminophen (Tylenol) 650 mg UNSCH PRN PO for headach, pain, temp > 101F Last administered on 01/30/17 01:51; Start 01/10/17 at 18:00; Stop 02/03/17 at 12:19; Status DC Diphenhydramine HCl (Benadryl) 25 mg UNSCH PRN PO for hives/itching/ anaphylaxis Last administered on 02/03/17 02:33; Start 01/10/17 at 18:00; Stop 02/03/17 at 12:19; Status DC Nitroglycerin (Nitrostat Sl) 0.4 mg UNSCH PRN SL CHEST PAIN; Start 01/10/17 at 18:00; Stop 02/03/17 at 12:19; Status DC Clonidine (Catapres) 0.1 mg UNSCH PRN PO for BP > 180/100 X 2 readings Last administered on 01/15/17 02:07; Start 01/10/17 at 18:00; Stop 02/03/17 at 12 :19; Status DC Gelatin (Gelfoam 12 Mm/7 Mm Top) 1 foam UNSCH PRN TOP SEE LABEL COMMENTS; Start 01/10/17 at 18:00; Stop 02/03/17 at 12:19; Status DC Dextrose (D50w (Vial) Inj) 50 ml UNSCH PRN IV PUSH HYPOGLYCEMIA-SEE COMMENTS Last administered on 01/10/17 18:05; Start 01/10/17 at 22:30; Stop 01/24/17 at 16:15; Status DC Glucagon (Glucagon Inj) 1 mg UNSCH PRN OTHER HYPOGLYCEMIA-SEE COMMENTS; Start 01/10/17 at 22:30; Stop 01/24/17 at 16:15; Status DC Dexmedetomidine HCl 200 mcg/ Sodium Chloride 52 ml @ 5.46 mls/hr TITRATE PRN IV SEDATION Last administered on 01/12/17 14:53; Start 01/11/17 at 00:00 Metoprolol Tartrate (Lopressor) 25 mg Q12HR PO Last administered on 01/15/17 08:48; Start 01/11/17 at 21:00; Stop 01/15/17 at 11:09; Status DC Metoprolol Tartrate (Lopressor Inj) 5 mg Q1HR PRN IV PUSH RAPID HEART RATE Last administered on 01/14/17 21:16; Start 01/11/17 at 11:15; Stop 01/15/17 at 11:09; Status DC Diltiazem HCl 125 mg/Sodium Chloride 125 ml @ 5 mls/hr TITRATE PRN IV Tachycardia Last administered on 01/15/17 10:45; Start 01/11/17 at 17:30; Stop 01/15/17 at 11:11; Status DC Sodium Chloride 1,000 ml @ 84 mls/hr [id number] IV Last administered on 01:04; Start 01/12/17 at 13:00; Stop 01/13/17 at 12:51; Status DC Haloperidol Lactate (Haldol Inj) 5 mg Q4H PRN IV agitation Last administered on 02/04/17 05:40; Start 01/12/17 at 17:00 Diltiazem HCl (Cardizem) 60 mg Q6HR PO Last administered on 01/15/17 07:03; Start 01/13/17 at 06:00; Stop 01/15/17 at 11:09; Status DC Sodium Chloride 38.5 meq/Sterile Water 1,009.625 ml @ 84 mls/hr Q12H2M IV Last administered on 01/22/17 22:46; Start 01/13/17 at 15:00; Stop 01/23/17 at 11: 57; Status DC Metoclopramide HCl (Reglan Inj) 5 mg Q8H PRN IV PUSH NAUSEA OR VOMITING Last administered on 01/14/17 22:57; Start 01/14/17 at 11:15; Stop 01/15/17 at 08 :56; Status DC Potassium Chloride 100 ml @ 50 mls/hr Q2H IV Last administered on 01/14/17 15:19; Start 01/14/17 at 12:00; Stop 01/14/17 at 15:59; Status DC Hydralazine HCl (Apresoline Inj) 20 mg ONCE ONCE IV PUSH Last administered on 01/14/17 22:58; Start 01/14/17 at 23:00; Stop 01/14/17 at 23:01; Status DC Metoclopramide HCl (Reglan Inj) 5 mg Q8H IV PUSH Last administered on 08:27; Start 01/15/17 at 10:00 Hydralazine HCl (Apresoline Inj) 10 mg Q4H PRN IV PUSH SYS BP GREATER THAN 160 MMHG Last administered on 02/04/17 18:12; Start 01/15/17 at 10:00 Potassium Chloride 100 ml @ 100 mls/hr Q1H IV ; Start 01/15/17 at 10:00; Stop 01/15/17 at 10:00; Status DC Potassium Chloride 100 ml @ 50 mls/hr Q2H IV Last administered on 01/16/17 06:11; Start 01/15/17 at 10:00; Status Future Hold Diltiazem HCl 125 mg/Sodium Chloride 125 ml @ 15 mls/hr TITRATE PRN IV Tachycardia Last administered on 01/19/17 00:59; Start 01/15/17 at 17:30; Stop 01/19/17 at 08:01; Status DC Metoprolol Tartrate (Lopressor Inj) 5 mg Q4H IV PUSH Last administered on 01/16 08:48; Start 01/15/17 at 12:00; Stop 01/16/17 at 09:17; Status DC Heparin Sodium (Porcine) (Heparin Inj) 4,000 units NOW STAT IV PUSH ; Start at 11:11; Stop 01/15/17 at 11:12; Status Cancel Heparin Sodium (Porcine) (Heparin Inj) 5,000 units UNSCH PRN IV PUSH APTT LESS THAN 25; Start 01/15/17 at 17:15; Stop 01/24/17 at 11:56; Status DC Heparin Sodium (Porcine) (Heparin Inj) 2,500 units UNSCH PRN IV PUSH APTT 25 TO 39 Last administered on 01/16/17 06:17; Start 01/15/17 at 17:15; Stop 01/24/17 at 11:56; Status DC Heparin Sodium/ Dextrose 250 ml @ 10 mls/hr TITRATE PRN IV Coagulation management; Start 01/15/17 at 11:15; Status Cancel Heparin Sodium (Porcine) (Heparin Inj) 4,000 units NOW STAT IV PUSH Last administered on 01/15/17 15:45; Start 01/15/17 at 15:45; Stop 01/15/17 at 15 :51; Status DC Heparin Sodium/ Dextrose 250 ml @ 10 mls/hr TITRATE PRN IV Coagulation management Last administered on 01/20/17 05:11; Start 01/15/17 at 16:00; Stop 01/20/17 at 08:22; Status DC Clonidine (Catapres-Tts 0.3 Mg Patch.7d) 1 patch Q7D T-DERMAL Last administered on 01/30/17 11:46; Start 01/16/17 at 10:00 Metoprolol Tartrate (Lopressor Inj) 5 mg Q3H IV PUSH Last administered on 01/19 02:31; Start 01/16/17 at 11:00; Stop 01/19/17 at 08:01; Status DC Miscellaneous Information 1 Q7D T-DERMAL Last administered on 01/30/17 10:00 ; Start 01/16/17 at 10:00 Guaifenesin (Mucinex Er) 600 mg BID PO Last administered on 02/05/17 08:26; Start 01/16/17 at 21:00 Magnesium Sulfate/ Dextrose 100 ml @ 100 mls/hr ONCE ONCE IV Last administered on 01/16/17 14:14; Start 01/16/17 at 12:00; Stop 01/16/17 at 12 :59; Status DC Magnesium Sulfate/ Dextrose 100 ml @ 100 mls/hr Q1H IV Last administered on 11:45; Start 01/17/17 at 10:45; Stop 01/17/17 at 12:44; Status DC Calcium Gluconate 1 gm/Sodium Chloride 110 ml @ 110 mls/hr ONCE ONCE IV Last administered on 01/17/17 12:00; Start 01/17/17 at 12:00; Stop 01/17/17 at 12 :59; Status DC Calcium Carbonate (Oscal) 500 mg TID PO Last administered on 02/05/17 08:25; Start 01/17/17 at 13:00 Potassium Phosphate (K-Phos) 500 mg Q12HR PO Last administered on 02/05/17 08 :27; Start 01/17/17 at 14:00 Quetiapine Fumarate (SEROquel) 25 mg BID PO Last administered on 02/05/17 08: 26; Start 01/17/17 at 21:00 Sodium Chloride 500 ml @ 500 mls/hr BOLUS ONCE IV Last administered on 09:00; Start 01/18/17 at 09:00; Stop 01/18/17 at 09:59; Status DC Magnesium Sulfate/ Dextrose 100 ml @ 100 mls/hr ONCE ONCE IV Last administered on 01/18/17 12:48; Start 01/18/17 at 12:30; Stop 01/18/17 at 13 :29; Status DC Calcium Gluconate 1 gm/Dextrose 110 ml @ 110 mls/hr ONCE ONCE IV Last administered on 01/18/17 12:30; Start 01/18/17 at 12:30; Stop 01/18/17 at 13 :29; Status DC Potassium Chloride (KCl) 20 meq ONCE ONCE PO Last administered on 01/18/17 14:00; Start 01/18/17 at 14:00; Stop 01/18/17 at 14:01; Status DC Metoprolol Tartrate (Lopressor) 50 mg Q8HR PO Last administered on 01/29/17 06 :27; Start 01/19/17 at 14:00; Stop 01/29/17 at 13:38; Status DC Diltiazem HCl (Cardizem) 90 mg TID PO Last administered on 01/19/17 18:42; Start 01/19/17 at 09:00; Stop 01/20/17 at 08:22; Status DC Warfarin Sodium (Coumadin) 5 mg DAILY@1600 PO Last administered on 01/19/17 15:43; Start 01/19/17 at 16:00; Stop 01/20/17 at 08:22; Status DC Diltiazem HCl (Cardizem Cd) 300 mg DAILY PO Last administered on 01/22/17 09: 12; Start 01/20/17 at 09:00; Stop 01/23/17 at 11:56; Status DC Labetalol HCl (Trandate Inj) 10 mg Q4H PRN IV PUSH SBP>160, DBP>90 Last administered on 01/20/17 17:27; Start 01/20/17 at 08:30 Magnesium Sulfate/ Dextrose 100 ml @ 100 mls/hr ONCE ONCE IV Last administered on 01/20/17 13:26; Start 01/20/17 at 12:00; Stop 01/20/17 at 12 :59; Status DC Potassium Chloride 100 ml @ 50 mls/hr BOLUS ONCE IV Last administered on 13:27; Start 01/20/17 at 13:00; Stop 01/20/17 at 14:59; Status DC Magnesium Sulfate/ Dextrose 100 ml @ 100 mls/hr ONCE ONCE IV Last administered on 01/21/17 17:48; Start 01/21/17 at 17:15; Stop 01/21/17 at 18:14 ; Status DC Cefepime HCl 1000 mg/Sodium Chloride 100 ml @ 200 mls/hr Q12H IV Last administered on 01/24/17 19:39; Start 01/22/17 at 09:00; Stop 01/24/17 at 20:07 ; Status DC Azithromycin 250 mg/Sodium Chloride 250 ml @ 250 mls/hr Q24H IV Last administered on 01/23/17 11:20; Start 01/22/17 at 10:00; Stop 01/23/17 at 13:29 ; Status DC Pharmacy Profile Note 0 ml @ 0 mls/hr UNSCH OTHER ; Start 01/23/17 at 05:45; Stop 01/23/17 at 10:20; Status DC Vancomycin HCl 1250 mg/Sodium Chloride 262.5 ml @ 250 mls/hr NOW ONCE IV Last administered on 01/23/17 06:39; Start 01/23/17 at 06:00; Stop 01/23/17 at 07:02; Status DC Insulin Detemir (Levemir Inj) 5 units Q12HR SQ Last administered on 02/05/17 08:27; Start 01/23/17 at 09:00 Vancomycin HCl 1250 mg/Sodium Chloride 262.5 ml @ 262.5 mls/ hr ONCE ONCE IV ; Start 01/23/17 at 09:15; Stop 01/23/17 at 10:19; Status DC Pharmacy Profile Note 0 ml @ 0 mls/hr UNSCH OTHER ; Start 01/23/17 at 10:15; Stop 01/24/17 at 20:07; Status DC Diltiazem HCl 125 mg/Sodium Chloride 125 ml @ 5 mls/hr TITRATE PRN IV Tachycardia Last administered on 02/01/17 11:45; Start 01/23/17 at 12:00; Stop 02/03/17 at 12:41; Status DC Sodium Chloride 1,000 ml @ 84 mls/hr [id number] IV Last administered on 08:56; Start 01/23/17 at 12:00; Stop 02/03/17 at 12:17; Status DC Magnesium Sulfate/ Dextrose 100 ml @ 100 mls/hr ONCE ONCE IV Last administered on 01/23/17 13:12; Start 01/23/17 at 13:00; Stop 01/23/17 at 13:59 ; Status DC Calcium Gluconate (Calcium Gluconate Inj) 1 gm ONCE ONCE IV PUSH ; Start at 12:00; Stop 01/23/17 at 12:01; Status UNV Calcium Gluconate 1 gm/Sodium Chloride 110 ml @ 110 mls/hr ONCE ONCE IV Last administered on 01/23/17 14:14; Start 01/23/17 at 14:00; Stop 01/23/17 at 14:59 ; Status DC Hydromorphone HCl (Dilaudid Pf Inj) 0.5 mg Q4HR PRN IV PUSH SEE LABEL COMMENTS Last administered on 02/04/17 16:05; Start 01/23/17 at 14:45 Hydromorphone HCl (Dilaudid Pf Inj) 0.75 mg Q4HR PRN IV PUSH SEE LABEL COMMENTS Last administered on 01/31/17 14:28; Start 01/23/17 at 14:45 Heparin Sodium/ Dextrose 250 ml @ 5 mls/hr CONTINUOUS IV ; Start 01/24/17 at 12: 00; Stop 01/24/17 at 13:29; Status DC Heparin Sodium/ Dextrose 250 ml @ 18 mls/hr TITRATE PRN IV Coagulation Management Last administered on 02/05/17 07:00; Start 01/24/17 at 12:00 Dextrose (D50w (Vial) Inj) 25 ml UNSCH PRN IV PUSH HYPOGLYCEMIA-SEE COMMENTS; Start 01/24/17 at 16:00 Insulin Human Regular (NovoLIN R SUPPLEMENTAL SCALE) 1 Q6HR SQ Last administered on 02/05/17 00:41; Start 01/24/17 at 18:00 Cefazolin Sodium/ Dextrose 50 ml @ 150 mls/hr Q8H IV Last administered on 01/29 13:05; Start 01/24/17 at 20:00; Stop 01/29/17 at 13:26; Status DC Metoprolol Tartrate (Lopressor Inj) 5 mg ONCE ONCE IV PUSH Last administered on 01/26/17 06:12; Start 01/26/17 at 06:00; Stop 01/26/17 at 06:01; Status DC Calcium Gluconate 1 gm/Dextrose 110 ml @ 110 mls/hr ONCE ONCE IV Last administered on 01/28/17 11:35; Start 01/28/17 at 11:30; Stop 01/28/17 at 12:29 ; Status DC Rifampin (Rifampin) 300 mg Q12H PO Last administered on 02/05/17 00:30; Start 01/28/17 at 14:00 Calcium Gluconate 1 gm/Dextrose 110 ml @ 110 mls/hr ONCE ONCE IV Last administered on 01/29/17 13:04; Start 01/29/17 at 10:30; Stop 01/29/17 at 11:29 ; Status DC Cefazolin Sodium/ Dextrose 50 ml @ 150 mls/hr Q12H IV Last administered on 11:46; Start 01/30/17 at 00:00; Stop 01/30/17 at 15:01; Status DC Metoprolol Tartrate (Lopressor) 100 mg BID PO Last administered on 02/05/17 08:26; Start 01/29/17 at 21:00 Calcium Gluconate 1 gm/Dextrose 110 ml @ 110 mls/hr ONCE ONCE IV Last administered on 01/30/17 08:38; Start 01/30/17 at 08:00; Stop 01/30/17 at 08 :59; Status DC Diltiazem HCl (Cardizem) 30 mg Q6HR PO Last administered on 02/05/17 05:25; Start 01/30/17 at 12:00 Oxacillin Sodium 2 gm/Sodium Chloride 100 ml @ 200 mls/hr Q4H IV ; Start 01/30 at 15:00; Stop 01/30/17 at 15:11; Status DC Oxacillin Sodium 2 gm/Sodium Chloride 100 ml @ 200 mls/hr Q4H IV Last administered on 02/05/17 08:26; Start 01/30/17 at 16:00 Calcium Gluconate 1 gm/Sodium Chloride 110 ml @ 110 mls/hr NOW ONCE IV Last administered on 01/31/17 08:43; Start 01/31/17 at 07:00; Stop 01/31/17 at 07 :59; Status DC Calcium Gluconate 1 gm/Sodium Chloride 100 ml @ 100 mls/hr ONCE ONCE IV ; Start 01/31/17 at 07:45; Stop 01/31/17 at 08:44; Status Cancel Calcium Gluconate 1 gm/Sodium Chloride 100 ml @ 100 mls/hr ONCE ONCE IV Last administered on 02/01/17 10:25; Start 02/01/17 at 09:00; Stop 02/01/17 at 09 :59; Status DC Sodium Chloride 250 ml @ 15 mls/hr ONCE ONCE IV ; Start 02/01/17 at 07:45; Stop 02/02/17 at 00:24; Status DC Sodium Chloride 250 ml @ 15 mls/hr ONCE ONCE IV Last administered on 09:30; Start 02/03/17 at 06:45; Stop 02/03/17 at 23:24; Status DC Sodium Chloride 1,000 ml @ 42 mls/hr [id number] IV Last administered on 00:43; Start 02/03/17 at 12:30 Nystatin (Mycostatin Powder) 1 applic Q12HR TOPICAL Last administered on 08:27; Start 02/03/17 at 21:00 Magnesium Sulfate/ Dextrose 100 ml @ 100 mls/hr Q1H IV Last administered on 14:04; Start 02/04/17 at 12:00; Stop 02/04/17 at 13:59; Status DC Diltiazem HCl (Cardizem Inj) 15 mg ONCE ONCE IV Last administered on 02:21; Start 02/05/17 at 02:15; Stop 02/05/17 at 02:20; Status DC Sodium Chloride 500 ml @ 500 mls/hr BOLUS ONCE IV Last administered on 03:15; Start 02/05/17 at 03:15; Stop 02/05/17 at 04:14; Status DC Metoprolol Tartrate (Lopressor Inj) 2.5 mg ONCE ONCE IV PUSH Last administered on 02/05/17 04:21; Start 02/05/17 at 04:15; Stop 02/05/17 at 04 :16; Status DC Metoprolol Tartrate (Lopressor Inj) 2.5 mg ONCE ONCE IV PUSH Last administered on 02/05/17 05:26; Start 02/05/17 at 05:15; Stop 02/05/17 at 05 :16; Status DC Sodium Chloride 500 ml @ 500 mls/hr BOLUS ONCE IV Last administered on 05:25; Start 02/05/17 at 05:15; Stop 02/05/17 at 06:14; Status DC Amiodarone HCl 450 mg/Dextrose 250 ml @ 33.33 mls/ hr Q7H31M PRN IV Per Protocol Last administered on 02/05/17 06:55; Start 02/05/17 at 06:26 Amiodarone HCl 150 mg/Dextrose 100 ml @ 100 mls/hr Q1H ONCE IV Last administered on 11/16/17at 06:54; Start 02/05/17 at 06:16; Stop 02/05/17 at 07 :15; Status DC A/P Problem List: (1) Acute on chronic kidney failure ICD Code: N17.9 - Acute kidney failure, unspecified; N18.9 - Chronic kidney disease, unspecified (2) Combined metabolic and respiratory acidosis (3) Acute metabolic encephalopathy ICD Code: G93.41 - Metabolic encephalopathy (4) NSTEMI (non-ST elevated myocardial infarction) ICD Code: I21.4 - Non-ST elevation (NSTEMI) myocardial infarction (5) Hyperkalemia ICD Code: E87.5 - Hyperkalemia Status: Acute (6) Metabolic acidemia ICD Code: E87.2 - Acidosis (7) History of CVA (cerebrovascular accident) ICD Code: Z86.73 - Personal history of transient ischemic attack (TIA), and cerebral infarction without residual deficits Status: Chronic (8) Diabetes ICD Code: E11.9 - Type 2 diabetes mellitus without complications Status: Acute (9) HTN (hypertension) ICD Code: I10 - Essential (primary) hypertension Status: Chronic Assessment and Plan 56-year-old male admitted secondary to bacteremia, fever, A. fib RVR, left arm DVT, encephalopathy. Labs reviewed. Hemoglobin level dropped. 2 units packed red blood cells transfused 02/01/17. Calcium level is low and supplementation provided. Continue to monitor renal function and white blood cell count. Labs ordered for further monitoring. WILL BE TRANSFUSED 2 MORE UNITS PRBC TODAY Labs reviewed. Follow Hgb as anemia is still exhibiting a progressive decline. Labs ordered for further monitoring. Acute blood loss anemia Obtain stool occult blood study Transfuse 2 units packed red blood cells on 02/01/17 Monitor hemoglobin TRANSFUSE 2 UNITS PRBC 02-03 Acute Metabolic Encephalopathy Agitated Delirium History of Previous CVA with left hemiparesis Delirium Less oriented today Follow clinically Check ammonia level Decision-making capacity does not exist in this patient Severe combined Metabolic and respiratory acidosis Resolved Continue bronchodilators Continue incentive spirometry Continue mucolytic A flutter/fibrillation with RVR Elevated troponin Coronary artery disease By mouth Cardizem continued-SWITCH OFF IV Continue metoprolol Cardiology following IV heparin STARTED ON AMIODARONE DRIP 02-05 Left upper extremity DVT Continue IV heparin Follow clinically Diabetes mellitus type 2 Follow blood sugars Insulin sliding scale Diabetic diet Sepsis Resolved MSSA bacteremia Suspected infected thrombophlebitis Continue cefazolin Continue rifampin LGIIA showed no vegetations ID following Continue to follow cultures WILL NEED ANTIBIOTICS THROUGH MAR 11 PER ID Acute kidney injury Nephrology following Dialysis if needed Monitor renal function Monitor electrolytes DVT prophylaxis IV heparin HYPOMAGNESIUM WILL REPLACE AND RECHECK IN AM Discharge Planning NEEDS SNF AT DC IF ABLE TO GO Problem Qualifiers (1) Diabetes: (2) HTN (hypertension): Qualified Codes: I10 - Essential (primary) hypertension Mt Kemp DO Feb 05, 2017 11:12
[2017-02-05] MEDS: BISACODYL 10 MG SUPP RECTAL SCH (12:14)
[2017-02-05 12:45] LABS: APTT (PATIENT) 69.5 SEC (24.3-30.1)
--- NOTE | 2017-02-05 13:27 | HHI.PYPN ---
Subjective Remarks Patient is seen for psychiatric evaluation. He is found sleeping, but arausable. At the beginning non-cooperative, but with redirection became more engagedable, but combination limited due to opposition. He denies depression, he says he feels ok, but is unable to elaborate about the resonf of hospitalization are ablt ot express a choice. He denies SI/HI/VH/AH. I tried to get in contact with his brother to collateral information about his past psychiatric history. There is not documentation of psychiatric illnesses in [facility]. Mental Status Examination Appearance: Appropriate Consciousness: Alert Orientation: Person Motor Activity: Normal gait Speech: Hesitant, Incoherent Language: Adequate Fund of Knowledge: Inadequate Memory: Impaired Mood: Oppositional Thought Process & Associations: Intact Thought Content: Appropriate Suicidal Ideation: No Suicidal Plan: No Suicidal Intention: No Homicidal Ideation: No Homicidal Plan: No Homicidal Intention: No Insight: Fair Judgment: Impulsive Results Labs Test 02/05/17 05:26 02/05/17 12:20 Blood Urea Nitrogen 19 MG/DL Creatinine 1.61 MG/DL Random Glucose 118 MG/DL Total Protein 7.2 GM/DL Albumin 1.2 GM/DL Calcium Level 7.7 MG/DL Phosphorus Level 3.4 MG/DL Magnesium Level 1.5 MG/DL Alkaline Phosphatase 76 U/L Aspartate Amino Transf (AST/SGOT) 55 U/L Alanine Aminotransferase (ALT/SGPT) 8 U/L Total Bilirubin 0.6 MG/DL Sodium Level 135 MEQ/L Potassium Level 4.3 MEQ/L Chloride Level 106 MEQ/L Carbon Dioxide Level 23.2 MEQ/L Anion Gap 6 MEQ/L Estimat Glomerular Filtration Rate 54 ML/MIN Activated Partial Thromboplast Time 69.5 SEC Date/Time Source Procedure Growth Status 02/01/17 06:12 Blood Peripheral Aerobic Blood Culture - Preliminary NO GROWTH IN 4 DAYS Resulted 02/01/17 06:12 Blood Peripheral Anaerobic Blood Culture - Preliminary NO GROWTH IN 4 DAYS Resulted 01/23/17 14:26 Urine Clean Catch Urine Culture - Final Staphylococcus Aureus Complete Vitals/IOs Vital Signs Date Time Temp Pulse Resp B/P (MAP) Pulse Ox O2 Delivery O2 Flow Rate FiO2 02/05/17 12:15 96 18 135/78 (97) 02/05/17 08:00 99 02/05/17 07:00 Nasal Cannula 2.00 21 02/05/17 04:00 98.9 Intake and Output 02/05/17 02/05/17 02/06/17 08:00 16:00 00:00 Intake Total 1946 ml 100 ml Balance 1946 ml 100 ml Assessment & Plan Problem List: (1) Delirium due to another medical condition ICD Codes: F05 - Delirium due to known physiological condition Assessment & Plan: Poorly cooperative. Oppositional, at times incoherent, no agitation, no aggressive behavior, not florid psychosis observed. More collateral information from family members needed in order to complete psychiatric assessment. No psychotropics recommended. We will follow-up. Assessment & Plan Estimated LOS: days Justification for Cont. Inpt. No psychiatric hospitalization needed. Maurice Cardenas MD Feb 05, 2017 13:27
[2017-02-05] MEDS: ATORVASTATIN 80 MG TAB PO SCH (20:53)
[2017-02-05] MEDS: HYDROmorphone HCL PF 2 MG/ML VIAL IV PUSH PRN (21:01)
[2017-02-06] VITALS (17 sets, daily range): BP systolic 104–161; BP diastolic 72–96; PULSE 65–88; RESP 11–29; TEMP 97.8–99.3; O2SAT 96–100
[2017-02-06] MEDS: METOCLOPRAMIDE HCL 10 MG/2 ML VIAL IV PUSH SCH ×3 (02:08→16:49)
[2017-02-06] MEDS: RIFAMPIN 150 MG CAP PO SCH ×2 (02:08→13:30)
[2017-02-06] MEDS: SODIUM CHLOR 0.9% 1000 ML INJ 1,000 ML IV SCH ×2 (03:58→11:01)
[2017-02-06] MEDS: OXACILLIN INJ 2 GM in SODIUM CHLORIDE 0.9% INJ 100 ML IV SCH ×6 (03:58→23:15)
[2017-02-06] MEDS: CHLORHEXIDINE GLUCONATE 2 % 1 PACK (2 CLOTHS) TOP SCH (03:59)
[2017-02-06] MEDS: DILTIAZEM HCL 30 MG TAB PO SCH ×4 (05:43→23:14)
[2017-02-06] MEDS: INSULIN NovoLIN REGULAR SUPPLEMENTAL SCALE SQ SCH ×4 (06:00→23:15)
[2017-02-06 06:19] LABS: HEMATOCRIT 21.6 % (39.0-51.0); MEAN CELL VOLUME 88.8 FL (80.0-100.0); MEAN CORPUSCULAR HEMOGLOBIN 29.8 PG (27.0-34.0); MEAN CORPUSCULAR HGB CONC 33.6 % (32.0-36.0); PLATELET COUNT 221 TH/MM3 (150-450); RED BLOOD COUNT 2.43 MIL/MM3 (4.50-5.90); RED CELL DISTRIBUTION WIDTH 15.3 % (11.6-17.2); REVIEW FLAG FINAL; WHITE BLOOD COUNT 13.5 TH/MM3 (4.0-11.0)
[2017-02-06 06:35] LABS: APTT (PATIENT) 66.2 SEC (24.3-30.1)
[2017-02-06] MEDS: QUEtiapine FUMARATE 25 MG TAB PO SCH ×2 (08:08→21:27)
[2017-02-06] MEDS: METOPROLOL TARTRATE 50 MG TAB PO SCH ×2 (08:08→21:26)
[2017-02-06] MEDS: BISACODYL 10 MG SUPP RECTAL SCH (08:09)
[2017-02-06] MEDS: ASPIRIN EC 81 MG TABEC PO SCH (08:09)
[2017-02-06] MEDS: POTASSIUM PHOSPHATE MONOBASIC 500 MG TAB PO SCH ×2 (08:09→21:27)
[2017-02-06] MEDS: guaiFENesin E.R. 600 MG TAB PO SCH ×2 (08:09→21:27)
[2017-02-06] MEDS: NYSTATIN 100,000 U/GM PWD 15 GM BTL TOPICAL SCH ×2 (08:09→21:26)
[2017-02-06] MEDS: CALCIUM CARBONATE 1.25 GM (CA 500 MG) TAB PO SCH ×3 (08:09→16:49)
[2017-02-06] MEDS: DOCUSATE SODIUM 50 MG/SENNA 8.6 MG TAB PO SCH ×2 (08:09→21:27)
[2017-02-06] MEDS: INSULIN DETEMIR 100 UNITS/ML VIAL SQ SCH ×2 (08:09→21:26)
[2017-02-06] MEDS: SODIUM CHLORIDE 0.9% FLUSH 10 ML FLUSH IV FLUSH SCH ×2 (08:23→21:00)
[2017-02-06] MEDS: REMOVE OLD PATCH T-DERMAL SCH (09:10)
[2017-02-06] MEDS: cloNIDine HCL 0.3 MG/24 HR PATCH T-DERMAL SCH (09:10)
[2017-02-06] MEDS: AMIODARONE 200 MG TAB PO SCH (09:10)
--- NOTE | 2017-02-06 12:09 | HHI.PR ---
Subjective Remarks HAS MSSA ON OXACILLIN BEING TRANSFUSED 2 UNITS PRBC NEEDS TO TRANSITION OFF CARDIZEM DRIP SWITCH TO PO DW RN AND PT 02-04 HAD RIGHT LE PAIN- US NEGATIVE FOR DVT HYPOMAG- WILL REPLACE DW RN AND PT OK FOR OUT OF ICU PT AND OT EVAL AND TREAT 02-05 STARTED ON AMIODARONE DRIP FOR HIS AFIB NO BM WILL GIVE DULCOLAX SUPP NOW DW RN AND PT AM LABS 02-06 SWITCHED TO PO AMIODARONE TODAY DW PATIENT AND RN OK FOR FLOOR NO BM YET Objective Vitals Vital Signs Date Time Temp Pulse Resp B/P (MAP) Pulse Ox O2 Delivery O2 Flow Rate FiO2 02/06/17 10:00 69 02/06/17 09:30 70 02/06/17 09:00 71 02/06/17 09:00 71 29 157/92 (113) 96 02/06/17 08:30 68 02/06/17 08:30 68 17 149/85 (106) 98 02/06/17 08:00 68 20 142/85 (104) 100 02/06/17 08:00 68 02/06/17 07:00 99 Nasal Cannula 2.00 21 02/06/17 06:00 66 02/06/17 05:00 65 18 133/75 (94) 100 02/06/17 04:00 66 18 107/76 (86) 100 02/06/17 04:00 79 02/06/17 03:00 65 18 129/72 (91) 100 02/06/17 02:00 69 16 134/81 (98) 100 02/06/17 02:00 81 02/06/17 01:00 67 18 104/76 (85) 100 02/06/17 00:00 88 02/06/17 00:00 97.8 68 18 145/81 (102) 100 02/05/17 22:19 98 16 147/83 (104) 97 02/05/17 22:01 116 16 196/90 (125) 100 02/05/17 22:00 106 02/05/17 21:00 119 18 153/85 (107) 99 02/05/17 20:00 96 02/05/17 20:00 98.2 99 16 139/77 (97) 100 02/05/17 19:00 94 Nasal Cannula 2.00 02/05/17 18:00 100 02/05/17 17:30 108 02/05/17 17:00 99 02/05/17 16:30 97 02/05/17 16:29 91 02/05/17 16:27 97 02/05/17 16:00 96 02/05/17 16:00 98.4 02/05/17 14:00 91 02/05/17 12:15 96 18 135/78 (97) 02/05/17 12:15 96 02/05/17 12:15 96 I/O 02/05/17 02/05/17 02/05/17 02/06/17 02/06/17 02/06/17 07:00 15:00 23:00 07:00 15:00 23:00 Intake Total 1946 ml 200 ml 740 ml 1440 ml Output Total 300 ml Balance 1946 ml 200 ml 740 ml 1140 ml Intake Oral 120 ml 640 ml 240 ml IV Total 1826 ml 200 ml 100 ml 1200 ml Output Urine Total 300 ml # Voids 4 4 2 # Bowel Movements 0 Result Diagram: 02/06/17 0542 02/05/17 0526 Other Results Laboratory Tests Test 02/03/17 16:51 02/04/17 06:30 02/05/17 05:26 02/05/17 12:20 Activated Partial Thromboplast Time 52.0 SEC 60.5 SEC 69.5 SEC White Blood Count 13.4 TH/MM3 Red Blood Count 2.82 MIL/MM3 Hemoglobin 8.2 GM/DL Hematocrit 24.2 % Mean Corpuscular Volume 85.8 FL Mean Corpuscular Hemoglobin 28.9 PG Mean Corpuscular Hemoglobin Concent 33.7 % Red Cell Distribution Width 15.7 % Platelet Count 240 TH/MM3 Mean Platelet Volume 8.2 FL Neutrophils (%) (Auto) 81.7 % Lymphocytes (%) (Auto) 8.0 % Monocytes (%) (Auto) 9.0 % Eosinophils (%) (Auto) 1.0 % Basophils (%) (Auto) 0.3 % Neutrophils # (Auto) 10.9 TH/MM3 Lymphocytes # (Auto) 1.1 TH/MM3 Monocytes # (Auto) 1.2 TH/MM3 Eosinophils # (Auto) 0.1 TH/MM3 Basophils # (Auto) 0.0 TH/MM3 CBC Comment AUTO DIFF Differential Comment AUTO DIFF CONFIRMED Target Cells 1+ Blood Urea Nitrogen 21 MG/DL 19 MG/DL Creatinine 1.75 MG/DL 1.61 MG/DL Random Glucose 129 MG/DL 118 MG/DL Total Protein 7.3 GM/DL 7.2 GM/DL Albumin 1.3 GM/DL 1.2 GM/DL Calcium Level 7.7 MG/DL 7.7 MG/DL Phosphorus Level 3.5 MG/DL 3.4 MG/DL Magnesium Level 1.3 MG/DL 1.5 MG/DL Alkaline Phosphatase 61 U/L 76 U/L Aspartate Amino Transf (AST/SGOT) 57 U/L 55 U/L Alanine Aminotransferase (ALT/SGPT) 6 U/L 8 U/L Total Bilirubin 0.8 MG/DL 0.6 MG/DL Sodium Level 135 MEQ/L 135 MEQ/L Potassium Level 4.2 MEQ/L 4.3 MEQ/L Chloride Level 105 MEQ/L 106 MEQ/L Carbon Dioxide Level 21.7 MEQ/L 23.2 MEQ/L Anion Gap 8 MEQ/L 6 MEQ/L Estimat Glomerular Filtration Rate 49 ML/MIN 54 ML/MIN Test 02/06/17 05:42 White Blood Count 13.5 TH/MM3 Red Blood Count 2.43 MIL/MM3 Hemoglobin 7.3 GM/DL Hematocrit 21.6 % Mean Corpuscular Volume 88.8 FL Mean Corpuscular Hemoglobin 29.8 PG Mean Corpuscular Hemoglobin Concent 33.6 % Red Cell Distribution Width 15.3 % Platelet Count 221 TH/MM3 Mean Platelet Volume 8.5 FL Activated Partial Thromboplast Time 66.2 SEC Imaging Last Impressions Lower Extremity Ultrasound 02/04/17 0000 Signed Impressions: Service Date/Time: Saturday, February 04, 2017 07:41 - CONCLUSION: Normal examination. Jermaine Malone Jr., MD Abdomen/Pelvis CT 01/28/17 0000 Signed Impressions: Service Date/Time: Saturday, January 28, 2017 20:18 - CONCLUSION: 1. Bilateral pleural effusions and bibasilar infiltrates. 2. Cardiomegaly. 3. Subcutaneous edema. 4. Umbilical hernia. Jermaine Malone Jr., MD Abdomen X-Ray 01/25/17 0000 Signed Impressions: Service Date/Time: Wednesday, January 25, 2017 14:33 - CONCLUSION: Nonspecific, nonobstructive bowel gas pattern. Scot Sung MD Upper Extremity Ultrasound 01/23/17 0000 Signed Impressions: Service Date/Time: Monday, January 23, 2017 17:45 - CONCLUSION: Thrombus identified within the internal jugular, subclavian, and the basilic veins. Jeyson Luciano MD Chest X-Ray 01/21/17 0000 Signed Impressions: Service Date/Time: Saturday, January 21, 2017 22:42 - CONCLUSION: New hazy opacity in both lungs with concern for ovarian edema and congestive heart failure. Jose Espinal MD Head CT 01/10/17 1257 Signed Impressions: Service Date/Time: Tuesday, January 10, 2017 13:32 - CONCLUSION: No acute disease. Jermaine Malone Jr., MD Renal Ultrasound 01/10/17 0000 Signed Impressions: Service Date/Time: Tuesday, January 10, 2017 17:01 - CONCLUSION: Normal examination. Jermaine Malone Jr., MD Objective Remarks GENERAL: AWAKE ALERT AND ORIENTED TALKATIVE AND COOPERATIVE SKIN: Warm and dry. HEAD: Atraumatic. Normocephalic. EYES: Pupils equal and round. No scleral icterus. No injection or drainage. EOMI ENT: No nasal bleeding or discharge. Mucous membranes pink and moist. TONGUE IS MIDLINE NECK: Trachea midline. No JVD. SUPPLE CARDIOVASCULAR: IRRegular rate and rhythm. S1, S2 NO S3 OR S4 RESPIRATORY: No accessory muscle use. Clear to auscultation. Breath sounds equal bilaterally. GASTROINTESTINAL: Abdomen soft, non-tender, nondistended. Hepatic and splenic margins not palpable. MUSCULOSKELETAL: Extremities without clubbing, cyanosis, or edema. No obvious deformities. NEUROLOGICAL: Awake and alert. No obvious cranial nerve deficits. Motor grossly within normal limits. Five out of 5 muscle strength in the arms and legs ON RIGHT 4/4 ON LEFT SIDE. Normal speech. PSYCHIATRIC: Appropriate mood and affect; insight and judgment normal.SOME CONFUSION Procedures LIGIA Medications and IVs Current Medications Meclizine HCl (Antivert) 25 mg ONCE ONCE PO Last administered on 01/10/17t 13 :42; Start 01/10/17 at 13:00; Stop 01/10/17 at 13:01; Status DC Sodium Chloride (NS Flush) 2 ml UNSCH PRN IVF FLUSH AFTER USING IV ACCESS; Start 01/10/17 at 13:00; Stop 01/10/17 at 22:25; Status DC Acetaminophen (Tylenol) 650 mg ONCE ONCE PO Last administered on 01/10/17 14 :07; Start 01/10/17 at 14:00; Stop 01/10/17 at 14:01; Status DC Insulin Human Regular (NovoLIN R INJ) 10 units ONCE ONCE IV PUSH Last administered on 01/10/17 16:14; Start 01/10/17 at 16:00; Stop 01/10/17 at 16 :01; Status DC Dextrose (D50w (Syr) Inj) 25 ml ONCE ONCE IV PUSH Last administered on 16:10; Start 01/10/17 at 16:00; Stop 01/10/17 at 16:01; Status DC Calcium Gluconate (Calcium Gluconate Inj) 1 gm ONCE ONCE IV PUSH Last administered on 01/10/17 16:09; Start 01/10/17 at 16:00; Stop 01/10/17 at 16 :01; Status DC Sodium Polystyrene Sulfonate (Kayexalate Liq) 15 gm ONCE ONCE PO ; Start 01/10 at 16:00; Stop 01/10/17 at 16:01; Status DC Sodium Bicarbonate 200 meq/Sodium Chloride 1,200 ml @ 100 mls/hr Q12H IV ; Start 01/10/17 at 16:15; Stop 01/11/17 at 14:47; Status DC Sodium Chloride 1,000 ml @ 999 mls/hr BOLUS ONCE IV Last administered on 16:43; Start 01/10/17 at 16:15; Stop 01/10/17 at 17:15; Status DC Sodium Chloride 1,000 ml @ 999 mls/hr BOLUS ONCE IV Last administered on 16:44; Start 01/10/17 at 16:15; Stop 01/10/17 at 17:15; Status DC Sodium Bicarbonate (Sodium Bicarbonate 8.4% Inj) 50 meq STK-MED ONCE .ROUTE ; Start 01/10/17 at 16:23; Stop 01/10/17 at 16:43; Status DC Sodium Bicarbonate 200 meq/Sterile Water 1,050 ml @ 150 mls/hr Q7H IV Last administered on 01/11/17 08:22; Start 01/10/17 at 16:45; Stop 01/11/17 at 14 :47; Status DC Sodium Chloride 1,000 ml @ 999 mls/hr BOLUS ONCE IV Last administered on 17:23; Start 01/10/17 at 17:00; Stop 01/10/17 at 18:00; Status DC Sodium Chloride 1,000 ml @ 999 mls/hr BOLUS ONCE IV Last administered on 17:23; Start 01/10/17 at 17:00; Stop 01/10/17 at 18:00; Status DC Sodium Chloride 1,000 ml @ 999 mls/hr BOLUS ONCE IV Last administered on 17:40; Start 01/10/17 at 17:00; Stop 01/10/17 at 18:00; Status DC Acetaminophen (Tylenol) 650 mg Q6H PRN PO PAIN SCALE 1 TO 4 Last administered on 02/01/17 00:12; Start 01/10/17 at 17:00 Albuterol Sulfate (Proair Hfa Inh) 2 puff Q6H PRN INH SHORTNESS OF BREATH; Start 01/10/17 at 17:00 Atorvastatin Calcium (Lipitor) 80 mg HS PO Last administered on 02/05/17 20: 53; Start 01/10/17 at 21:00 Nitroglycerin (Nitrostat Sl) 0.4 mg Q3H PRN SL CHEST PAIN; Start 01/10/17 at 17:00 Aspirin (Ecotrin Ec) 81 mg DAILY PO Last administered on 02/06/17 08:09; Start 01/10/17 at 17:00 Heparin Sodium/ Dextrose 250 ml @ 10 mls/hr TITRATE PRN IV Coagulation management Last administered on 01/11/17 01:03; Start 01/10/17 at 17:00; Stop 01/11/17 at 17:15; Status DC Insulin Aspart (NovoLOG SUPPLEMENTAL SCALE) 1 Q4H SQ Last administered on 04:39; Start 01/10/17 at 17:00; Stop 01/23/17 at 08:38; Status DC Sodium Chloride (NS Flush) 2 ml UNSCH PRN IV FLUSH FLUSH AFTER USING IV ACCESS ; Start 01/10/17 at 17:15; Stop 01/11/17 at 14:50; Status DC Sodium Chloride (NS Flush) 2 ml BID IV FLUSH Last administered on 02/05/17 20 :54; Start 01/10/17 at 21:00 Pantoprazole Sodium (Protonix) 40 mg DAILY PO ; Start 01/11/17 at 09:00; Stop 01/11/17 at 17:15; Status DC Miscellaneous Information 1 Q361D XX ; Start 01/10/17 at 17:15 Chlorhexidine Gluconate (Chlorhexidine 2% Cloth) Taper DAILY@04 TOP Last administered on 02/04/17 05:28; Start 01/11/17 at 04:00; Stop 01/07/18 at 03 :59 Chlorhexidine Gluconate (Chlorhexidine 2% Cloth) 3 pack UNSCH PRN TOP HYGIENIC CARE; Start 01/10/17 at 17:15 Senna/Docusate Sodium (Afia-Colace) 1 tab BID PO Last administered on 08:09; Start 01/10/17 at 21:00 Magnesium Hydroxide (Milk Of Magnesia Liq) 30 ml Q12H PRN PO Mild constipation Last administered on 02/04/17 08:51; Start 01/10/17 at 17:15 Sennosides (Senokot) 17.2 mg Q12H PRN PO Moderate constipation; Start at 17:15 Bisacodyl (Dulcolax Supp) 10 mg DAILY PRN RECTAL SEVERE CONSITIPATION; Start 01/10/17 at 17:15 Lactulose (Lactulose Liq) 30 ml DAILY PRN PO SEVERE CONSITIPATION Last administered on 02/04/17 08:51; Start 01/10/17 at 17:15 Sodium Bicarbonate 0 ml @ As Directed STK-MED ONCE .ROUTE ; Start 01/10/17 at 17:23; Stop 01/10/17 at 17:24; Status DC Sodium Bicarbonate (Sodium Bicarbonate 8.4% Inj) 50 meq STK-MED ONCE .ROUTE ; Start 01/10/17 at 17:23; Stop 01/10/17 at 17:24; Status DC Sodium Chloride 1,000 ml @ 0 mls/hr Q0M PRN OTHER For Prime & Rinse Back Last administered on 01/10/17 22:05; Start 01/10/17 at 17:47; Stop 02/03/17 at 12 :19; Status DC Heparin Sodium (Porcine) (Heparin Inj) 8,000 units UNSCH PRN IV FLUSH WITH DIALYSIS; Start 01/10/17 at 18:00; Stop 01/24/17 at 11:56; Status DC Sodium Chloride 1,000 ml @ 200 mls/hr Q5H PRN IV WITH DIALYSIS; Start at 17:47; Stop 02/03/17 at 12:19; Status DC Sodium Chloride 1,000 ml @ 0 mls/hr Q0M PRN OTHER WITH DIALYSIS; Start at 17:47; Stop 02/03/17 at 12:19; Status DC Mannitol (Mannitol Inj) 12.5 gm UNSCH PRN IV WITH DIALYSIS; Start 01/10/17 at 18:00; Stop 02/03/17 at 12:19; Status DC Albumin Human 100 ml @ 60 mls/hr UNSCH PRN IV WITH DIALYSIS; Start 01/10/17 at 18:00; Stop 02/03/17 at 12:19; Status DC Sodium Chloride (NS Flush) 5 ml UNSCH PRN IV FLUSH WITH DIALYSIS; Start at 18:00; Stop 02/03/17 at 12:19; Status DC Heparin Sodium (Porcine) (Heparin Inj) UNSCH PRN .XX WITH DIALYSIS; Start at 18:00; Stop 02/03/17 at 12:19; Status DC Gentamicin Sulfate (Gentamicin (Dialysis) Inj) 20 mg UNSCH PRN OTHER WITH DIALYSIS Last administered on 01/10/17 22:03; Start 01/10/17 at 18:00; Stop 02/03/17 at 12:19; Status DC Ondansetron HCl (Zofran Inj) 4 mg UNSCH PRN IV PUSH WITH DIALYSIS Last administered on 01/18/17 08:51; Start 01/10/17 at 18:00; Stop 02/03/17 at 12 :19; Status DC Acetaminophen (Tylenol) 650 mg UNSCH PRN PO for headach, pain, temp > 101F Last administered on 01/30/17 01:51; Start 01/10/17 at 18:00; Stop 02/03/17 at 12:19; Status DC Diphenhydramine HCl (Benadryl) 25 mg UNSCH PRN PO for hives/itching/ anaphylaxis Last administered on 02/03/17 02:33; Start 01/10/17 at 18:00; Stop 02/03/17 at 12:19; Status DC Nitroglycerin (Nitrostat Sl) 0.4 mg UNSCH PRN SL CHEST PAIN; Start 01/10/17 at 18:00; Stop 02/03/17 at 12:19; Status DC Clonidine (Catapres) 0.1 mg UNSCH PRN PO for BP > 180/100 X 2 readings Last administered on 01/15/17 02:07; Start 01/10/17 at 18:00; Stop 02/03/17 at 12 :19; Status DC Gelatin (Gelfoam 12 Mm/7 Mm Top) 1 foam UNSCH PRN TOP SEE LABEL COMMENTS; Start 01/10/17 at 18:00; Stop 02/03/17 at 12:19; Status DC Dextrose (D50w (Vial) Inj) 50 ml UNSCH PRN IV PUSH HYPOGLYCEMIA-SEE COMMENTS Last administered on 01/10/17 18:05; Start 01/10/17 at 22:30; Stop 01/24/17 at 16:15; Status DC Glucagon (Glucagon Inj) 1 mg UNSCH PRN OTHER HYPOGLYCEMIA-SEE COMMENTS; Start 01/10/17 at 22:30; Stop 01/24/17 at 16:15; Status DC Dexmedetomidine HCl 200 mcg/ Sodium Chloride 52 ml @ 5.46 mls/hr TITRATE PRN IV SEDATION Last administered on 01/12/17 14:53; Start 01/11/17 at 00:00 Metoprolol Tartrate (Lopressor) 25 mg Q12HR PO Last administered on 01/15/17 08:48; Start 01/11/17 at 21:00; Stop 01/15/17 at 11:09; Status DC Metoprolol Tartrate (Lopressor Inj) 5 mg Q1HR PRN IV PUSH RAPID HEART RATE Last administered on 01/14/17 21:16; Start 01/11/17 at 11:15; Stop 01/15/17 at 11:09; Status DC Diltiazem HCl 125 mg/Sodium Chloride 125 ml @ 5 mls/hr TITRATE PRN IV Tachycardia Last administered on 01/15/17 10:45; Start 01/11/17 at 17:30; Stop 01/15/17 at 11:11; Status DC Sodium Chloride 1,000 ml @ 84 mls/hr [id number] IV Last administered on 01:04; Start 01/12/17 at 13:00; Stop 01/13/17 at 12:51; Status DC Haloperidol Lactate (Haldol Inj) 5 mg Q4H PRN IV agitation Last administered on 02/04/17 05:40; Start 01/12/17 at 17:00 Diltiazem HCl (Cardizem) 60 mg Q6HR PO Last administered on 01/15/17 07:03; Start 01/13/17 at 06:00; Stop 01/15/17 at 11:09; Status DC Sodium Chloride 38.5 meq/Sterile Water 1,009.625 ml @ 84 mls/hr Q12H2M IV Last administered on 01/22/17 22:46; Start 01/13/17 at 15:00; Stop 01/23/17 at 11: 57; Status DC Metoclopramide HCl (Reglan Inj) 5 mg Q8H PRN IV PUSH NAUSEA OR VOMITING Last administered on 01/14/17 22:57; Start 01/14/17 at 11:15; Stop 01/15/17 at 08 :56; Status DC Potassium Chloride 100 ml @ 50 mls/hr Q2H IV Last administered on 01/14/17 15:19; Start 01/14/17 at 12:00; Stop 01/14/17 at 15:59; Status DC Hydralazine HCl (Apresoline Inj) 20 mg ONCE ONCE IV PUSH Last administered on 01/14/17 22:58; Start 01/14/17 at 23:00; Stop 01/14/17 at 23:01; Status DC Metoclopramide HCl (Reglan Inj) 5 mg Q8H IV PUSH Last administered on 09:11; Start 01/15/17 at 10:00 Hydralazine HCl (Apresoline Inj) 10 mg Q4H PRN IV PUSH SYS BP GREATER THAN 160 MMHG Last administered on 02/04/17 18:12; Start 01/15/17 at 10:00 Potassium Chloride 100 ml @ 100 mls/hr Q1H IV ; Start 01/15/17 at 10:00; Stop 01/15/17 at 10:00; Status DC Potassium Chloride 100 ml @ 50 mls/hr Q2H IV Last administered on 01/16/17 06:11; Start 01/15/17 at 10:00; Status Future Hold Diltiazem HCl 125 mg/Sodium Chloride 125 ml @ 15 mls/hr TITRATE PRN IV Tachycardia Last administered on 01/19/17 00:59; Start 01/15/17 at 17:30; Stop 01/19/17 at 08:01; Status DC Metoprolol Tartrate (Lopressor Inj) 5 mg Q4H IV PUSH Last administered on 01/16 08:48; Start 01/15/17 at 12:00; Stop 01/16/17 at 09:17; Status DC Heparin Sodium (Porcine) (Heparin Inj) 4,000 units NOW STAT IV PUSH ; Start at 11:11; Stop 01/15/17 at 11:12; Status Cancel Heparin Sodium (Porcine) (Heparin Inj) 5,000 units UNSCH PRN IV PUSH APTT LESS THAN 25; Start 01/15/17 at 17:15; Stop 01/24/17 at 11:56; Status DC Heparin Sodium (Porcine) (Heparin Inj) 2,500 units UNSCH PRN IV PUSH APTT 25 TO 39 Last administered on 01/16/17 06:17; Start 01/15/17 at 17:15; Stop 01/24/17 at 11:56; Status DC Heparin Sodium/ Dextrose 250 ml @ 10 mls/hr TITRATE PRN IV Coagulation management; Start 01/15/17 at 11:15; Status Cancel Heparin Sodium (Porcine) (Heparin Inj) 4,000 units NOW STAT IV PUSH Last administered on 01/15/17 15:45; Start 01/15/17 at 15:45; Stop 01/15/17 at 15 :51; Status DC Heparin Sodium/ Dextrose 250 ml @ 10 mls/hr TITRATE PRN IV Coagulation management Last administered on 01/20/17 05:11; Start 01/15/17 at 16:00; Stop 01/20/17 at 08:22; Status DC Clonidine (Catapres-Tts 0.3 Mg Patch.7d) 1 patch Q7D T-DERMAL Last administered on 02/06/17 09:10; Start 01/16/17 at 10:00 Metoprolol Tartrate (Lopressor Inj) 5 mg Q3H IV PUSH Last administered on 01/19 02:31; Start 01/16/17 at 11:00; Stop 01/19/17 at 08:01; Status DC Miscellaneous Information 1 Q7D T-DERMAL Last administered on 02/06/17 09:10 ; Start 01/16/17 at 10:00 Guaifenesin (Mucinex Er) 600 mg BID PO Last administered on 02/06/17 08:09; Start 01/16/17 at 21:00 Magnesium Sulfate/ Dextrose 100 ml @ 100 mls/hr ONCE ONCE IV Last administered on 01/16/17 14:14; Start 01/16/17 at 12:00; Stop 01/16/17 at 12 :59; Status DC Magnesium Sulfate/ Dextrose 100 ml @ 100 mls/hr Q1H IV Last administered on 11:45; Start 01/17/17 at 10:45; Stop 01/17/17 at 12:44; Status DC Calcium Gluconate 1 gm/Sodium Chloride 110 ml @ 110 mls/hr ONCE ONCE IV Last administered on 01/17/17 12:00; Start 01/17/17 at 12:00; Stop 01/17/17 at 12 :59; Status DC Calcium Carbonate (Oscal) 500 mg TID PO Last administered on 02/06/17 11:25; Start 01/17/17 at 13:00 Potassium Phosphate (K-Phos) 500 mg Q12HR PO Last administered on 02/06/17 08 :09; Start 01/17/17 at 14:00 Quetiapine Fumarate (SEROquel) 25 mg BID PO Last administered on 02/06/17 08: 08; Start 01/17/17 at 21:00 Sodium Chloride 500 ml @ 500 mls/hr BOLUS ONCE IV Last administered on 09:00; Start 01/18/17 at 09:00; Stop 01/18/17 at 09:59; Status DC Magnesium Sulfate/ Dextrose 100 ml @ 100 mls/hr ONCE ONCE IV Last administered on 01/18/17 12:48; Start 01/18/17 at 12:30; Stop 01/18/17 at 13 :29; Status DC Calcium Gluconate 1 gm/Dextrose 110 ml @ 110 mls/hr ONCE ONCE IV Last administered on 01/18/17 12:30; Start 01/18/17 at 12:30; Stop 01/18/17 at 13 :29; Status DC Potassium Chloride (KCl) 20 meq ONCE ONCE PO Last administered on 01/18/17 14:00; Start 01/18/17 at 14:00; Stop 01/18/17 at 14:01; Status DC Metoprolol Tartrate (Lopressor) 50 mg Q8HR PO Last administered on 01/29/17 06 :27; Start 01/19/17 at 14:00; Stop 01/29/17 at 13:38; Status DC Diltiazem HCl (Cardizem) 90 mg TID PO Last administered on 01/19/17 18:42; Start 01/19/17 at 09:00; Stop 01/20/17 at 08:22; Status DC Warfarin Sodium (Coumadin) 5 mg DAILY@1600 PO Last administered on 01/19/17 15:43; Start 01/19/17 at 16:00; Stop 01/20/17 at 08:22; Status DC Diltiazem HCl (Cardizem Cd) 300 mg DAILY PO Last administered on 01/22/17 09: 12; Start 01/20/17 at 09:00; Stop 01/23/17 at 11:56; Status DC Labetalol HCl (Trandate Inj) 10 mg Q4H PRN IV PUSH SBP>160, DBP>90 Last administered on 01/20/17 17:27; Start 01/20/17 at 08:30 Magnesium Sulfate/ Dextrose 100 ml @ 100 mls/hr ONCE ONCE IV Last administered on 01/20/17 13:26; Start 01/20/17 at 12:00; Stop 01/20/17 at 12 :59; Status DC Potassium Chloride 100 ml @ 50 mls/hr BOLUS ONCE IV Last administered on 13:27; Start 01/20/17 at 13:00; Stop 01/20/17 at 14:59; Status DC Magnesium Sulfate/ Dextrose 100 ml @ 100 mls/hr ONCE ONCE IV Last administered on 01/21/17 17:48; Start 01/21/17 at 17:15; Stop 01/21/17 at 18:14 ; Status DC Cefepime HCl 1000 mg/Sodium Chloride 100 ml @ 200 mls/hr Q12H IV Last administered on 01/24/17 19:39; Start 01/22/17 at 09:00; Stop 01/24/17 at 20:07 ; Status DC Azithromycin 250 mg/Sodium Chloride 250 ml @ 250 mls/hr Q24H IV Last administered on 01/23/17 11:20; Start 01/22/17 at 10:00; Stop 01/23/17 at 13:29 ; Status DC Pharmacy Profile Note 0 ml @ 0 mls/hr UNSCH OTHER ; Start 01/23/17 at 05:45; Stop 01/23/17 at 10:20; Status DC Vancomycin HCl 1250 mg/Sodium Chloride 262.5 ml @ 250 mls/hr NOW ONCE IV Last administered on 01/23/17 06:39; Start 01/23/17 at 06:00; Stop 01/23/17 at 07:02; Status DC Insulin Detemir (Levemir Inj) 5 units Q12HR SQ Last administered on 02/05/17 20:55; Start 01/23/17 at 09:00 Vancomycin HCl 1250 mg/Sodium Chloride 262.5 ml @ 262.5 mls/ hr ONCE ONCE IV ; Start 01/23/17 at 09:15; Stop 01/23/17 at 10:19; Status DC Pharmacy Profile Note 0 ml @ 0 mls/hr UNSCH OTHER ; Start 01/23/17 at 10:15; Stop 01/24/17 at 20:07; Status DC Diltiazem HCl 125 mg/Sodium Chloride 125 ml @ 5 mls/hr TITRATE PRN IV Tachycardia Last administered on 02/01/17 11:45; Start 01/23/17 at 12:00; Stop 02/03/17 at 12:41; Status DC Sodium Chloride 1,000 ml @ 84 mls/hr [id number] IV Last administered on 08:56; Start 01/23/17 at 12:00; Stop 02/03/17 at 12:17; Status DC Magnesium Sulfate/ Dextrose 100 ml @ 100 mls/hr ONCE ONCE IV Last administered on 01/23/17 13:12; Start 01/23/17 at 13:00; Stop 01/23/17 at 13:59 ; Status DC Calcium Gluconate (Calcium Gluconate Inj) 1 gm ONCE ONCE IV PUSH ; Start at 12:00; Stop 01/23/17 at 12:01; Status UNV Calcium Gluconate 1 gm/Sodium Chloride 110 ml @ 110 mls/hr ONCE ONCE IV Last administered on 01/23/17 14:14; Start 01/23/17 at 14:00; Stop 01/23/17 at 14:59 ; Status DC Hydromorphone HCl (Dilaudid Pf Inj) 0.5 mg Q4HR PRN IV PUSH SEE LABEL COMMENTS Last administered on 02/04/17 16:05; Start 01/23/17 at 14:45 Hydromorphone HCl (Dilaudid Pf Inj) 0.75 mg Q4HR PRN IV PUSH SEE LABEL COMMENTS Last administered on 02/05/17 21:01; Start 01/23/17 at 14:45 Heparin Sodium/ Dextrose 250 ml @ 5 mls/hr CONTINUOUS IV ; Start 01/24/17 at 12: 00; Stop 01/24/17 at 13:29; Status DC Heparin Sodium/ Dextrose 250 ml @ 18 mls/hr TITRATE PRN IV Coagulation Management Last administered on 02/05/17 07:00; Start 01/24/17 at 12:00 Dextrose (D50w (Vial) Inj) 25 ml UNSCH PRN IV PUSH HYPOGLYCEMIA-SEE COMMENTS; Start 01/24/17 at 16:00 Insulin Human Regular (NovoLIN R SUPPLEMENTAL SCALE) 1 Q6HR SQ Last administered on 02/05/17 00:41; Start 01/24/17 at 18:00 Cefazolin Sodium/ Dextrose 50 ml @ 150 mls/hr Q8H IV Last administered on 01/29 13:05; Start 01/24/17 at 20:00; Stop 01/29/17 at 13:26; Status DC Metoprolol Tartrate (Lopressor Inj) 5 mg ONCE ONCE IV PUSH Last administered on 01/26/17 06:12; Start 01/26/17 at 06:00; Stop 01/26/17 at 06:01; Status DC Calcium Gluconate 1 gm/Dextrose 110 ml @ 110 mls/hr ONCE ONCE IV Last administered on 01/28/17 11:35; Start 01/28/17 at 11:30; Stop 01/28/17 at 12:29 ; Status DC Rifampin (Rifampin) 300 mg Q12H PO Last administered on 02/06/17 02:08; Start 01/28/17 at 14:00 Calcium Gluconate 1 gm/Dextrose 110 ml @ 110 mls/hr ONCE ONCE IV Last administered on 01/29/17 13:04; Start 01/29/17 at 10:30; Stop 01/29/17 at 11:29 ; Status DC Cefazolin Sodium/ Dextrose 50 ml @ 150 mls/hr Q12H IV Last administered on 11:46; Start 01/30/17 at 00:00; Stop 01/30/17 at 15:01; Status DC Metoprolol Tartrate (Lopressor) 100 mg BID PO Last administered on 02/06/17 08:08; Start 01/29/17 at 21:00 Calcium Gluconate 1 gm/Dextrose 110 ml @ 110 mls/hr ONCE ONCE IV Last administered on 01/30/17 08:38; Start 01/30/17 at 08:00; Stop 01/30/17 at 08 :59; Status DC Diltiazem HCl (Cardizem) 30 mg Q6HR PO Last administered on 02/06/17 11:25; Start 01/30/17 at 12:00 Oxacillin Sodium 2 gm/Sodium Chloride 100 ml @ 200 mls/hr Q4H IV ; Start 01/30 at 15:00; Stop 01/30/17 at 15:11; Status DC Oxacillin Sodium 2 gm/Sodium Chloride 100 ml @ 200 mls/hr Q4H IV Last administered on 02/06/17 11:25; Start 01/30/17 at 16:00 Calcium Gluconate 1 gm/Sodium Chloride 110 ml @ 110 mls/hr NOW ONCE IV Last administered on 01/31/17 08:43; Start 01/31/17 at 07:00; Stop 01/31/17 at 07 :59; Status DC Calcium Gluconate 1 gm/Sodium Chloride 100 ml @ 100 mls/hr ONCE ONCE IV ; Start 01/31/17 at 07:45; Stop 01/31/17 at 08:44; Status Cancel Calcium Gluconate 1 gm/Sodium Chloride 100 ml @ 100 mls/hr ONCE ONCE IV Last administered on 02/01/17 10:25; Start 02/01/17 at 09:00; Stop 02/01/17 at 09 :59; Status DC Sodium Chloride 250 ml @ 15 mls/hr ONCE ONCE IV ; Start 02/01/17 at 07:45; Stop 02/02/17 at 00:24; Status DC Sodium Chloride 250 ml @ 15 mls/hr ONCE ONCE IV Last administered on 09:30; Start 02/03/17 at 06:45; Stop 02/03/17 at 23:24; Status DC Sodium Chloride 1,000 ml @ 42 mls/hr [id number] IV Last administered on 11:01; Start 02/03/17 at 12:30 Nystatin (Mycostatin Powder) 1 applic Q12HR TOPICAL Last administered on 08:09; Start 02/03/17 at 21:00 Magnesium Sulfate/ Dextrose 100 ml @ 100 mls/hr Q1H IV Last administered on 14:04; Start 02/04/17 at 12:00; Stop 02/04/17 at 13:59; Status DC Diltiazem HCl (Cardizem Inj) 15 mg ONCE ONCE IV Last administered on 02:21; Start 02/05/17 at 02:15; Stop 02/05/17 at 02:20; Status DC Sodium Chloride 500 ml @ 500 mls/hr BOLUS ONCE IV Last administered on 03:15; Start 02/05/17 at 03:15; Stop 02/05/17 at 04:14; Status DC Metoprolol Tartrate (Lopressor Inj) 2.5 mg ONCE ONCE IV PUSH Last administered on 02/05/17 04:21; Start 02/05/17 at 04:15; Stop 02/05/17 at 04 :16; Status DC Metoprolol Tartrate (Lopressor Inj) 2.5 mg ONCE ONCE IV PUSH Last administered on 02/05/17 05:26; Start 02/05/17 at 05:15; Stop 02/05/17 at 05 :16; Status DC Sodium Chloride 500 ml @ 500 mls/hr BOLUS ONCE IV Last administered on 05:25; Start 02/05/17 at 05:15; Stop 02/05/17 at 06:14; Status DC Amiodarone HCl 450 mg/Dextrose 250 ml @ 33.33 mls/ hr [id number] PRN IV Per Protocol Last administered on 02/05/17 16:29; Start 02/05/17 at 06:26; Stop 02/06/17 at 08:56; Status DC Amiodarone HCl 150 mg/Dextrose 100 ml @ 100 mls/hr Q1H ONCE IV Last administered on 02/05/17 06:54; Start 02/05/17 at 06:16; Stop 02/05/17 at 07 :15; Status DC Bisacodyl (Dulcolax Supp) 10 mg DAILY RECTAL Last administered on 02/06/17 08 :09; Start 02/05/17 at 12:00 Amiodarone HCl (Cordarone) 400 mg DAILY PO Last administered on 02/06/17 09: 10; Start 02/06/17 at 10:00 A/P Problem List: (1) Acute on chronic kidney failure ICD Code: N17.9 - Acute kidney failure, unspecified; N18.9 - Chronic kidney disease, unspecified (2) Combined metabolic and respiratory acidosis (3) Acute metabolic encephalopathy ICD Code: G93.41 - Metabolic encephalopathy (4) NSTEMI (non-ST elevated myocardial infarction) ICD Code: I21.4 - Non-ST elevation (NSTEMI) myocardial infarction (5) Hyperkalemia ICD Code: E87.5 - Hyperkalemia Status: Acute (6) Metabolic acidemia ICD Code: E87.2 - Acidosis (7) History of CVA (cerebrovascular accident) ICD Code: Z86.73 - Personal history of transient ischemic attack (TIA), and cerebral infarction without residual deficits Status: Chronic (8) Diabetes ICD Code: E11.9 - Type 2 diabetes mellitus without complications Status: Acute (9) HTN (hypertension) ICD Code: I10 - Essential (primary) hypertension Status: Chronic Assessment and Plan 56-year-old male admitted secondary to bacteremia, fever, A. fib RVR, left arm DVT, encephalopathy. Labs reviewed. Hemoglobin level dropped. 2 units packed red blood cells transfused 02/01/17. Calcium level is low and supplementation provided. Continue to monitor renal function and white blood cell count. Labs ordered for further monitoring. WILL NEED MORE BLOOD TRANSFUSIONS IN THE FUTURE Labs reviewed. Follow Hgb as anemia is still exhibiting a progressive decline. Labs ordered for further monitoring. Acute blood loss anemia Obtain stool occult blood study Transfuse 2 units packed red blood cells on 02/01/17 Monitor hemoglobin TRANSFUSE 2 UNITS PRBC 11-14 AM LABS Acute Metabolic Encephalopathy Agitated Delirium History of Previous CVA with left hemiparesis Delirium Less oriented today Follow clinically Check ammonia level Decision-making capacity does not exist in this patient Severe combined Metabolic and respiratory acidosis Resolved Continue bronchodilators Continue incentive spirometry Continue mucolytic A flutter/fibrillation with RVR Elevated troponin Coronary artery disease By mouth Cardizem continued-SWITCH OFF IV Continue metoprolol Cardiology following IV heparin STARTED ON AMIODARONE DRIP 02-05 SWITCHED TO PO AMIODARONE 400MG PO DAILY Left upper extremity DVT Continue IV heparin Follow clinically Diabetes mellitus type 2 Follow blood sugars Insulin sliding scale Diabetic diet Sepsis Resolved MSSA bacteremia Suspected infected thrombophlebitis Continue cefazolin Continue rifampin LIGIA showed no vegetations ID following Continue to follow cultures WILL NEED ANTIBIOTICS THROUGH MAR 11 PER ID Acute kidney injury Nephrology following Dialysis if needed Monitor renal function Monitor electrolytes DVT prophylaxis IV heparin HYPOMAGNESIUM WILL REPLACE AND RECHECK IN AM ANEMIA - AM LABS Discharge Planning NEEDS SNF AT DC IF ABLE TO GO Problem Qualifiers (1) Diabetes: (2) HTN (hypertension): Qualified Codes: I10 - Essential (primary) hypertension Mt Kemp DO Feb 06, 2017 12:09
--- NOTE | 2017-02-06 14:35 | HHI.IDPN ---
Subjective Subjective Remarks Is a 56-year-old male with past medical history significant for chronic kidney disease baseline creatinine 1.8-2, type 2 diabetes, history of CVA with residual left patient is a 56-year-old male, admitted to the hospital complaining of generalized weakness and dizziness for about 1 week. He apparently lives in a nursing home and walks with a cane, and has left-sided weakness. There is mention that he had fallen a couple times due to the weakness. There is also mention that he was not having enough by mouth intake, as well as some diarrhea. He denies any abdominal pain, any nausea or vomiting. On initial presentation patient was found to be in atrial flutter with RVR. He also has significant acidosis, and has an elevated potassium and creatinine. Patient was seen by cardiology, and his echo showed normal EF. Patient also was seen by renal, and underwent emergency hemodialysis. His hemodynamics stabilized, and the hemodialysis has been stopped. He has good urine output. Patient has been refusing a lot of his treatment. His had some problem with nausea and vomiting. He has had on and off fevers which are low- grade, however in the last probably 4 days, his fevers have been more persistent. He is complaining of pain on the right side of his trunk. There is also mention that his left upper extremity is swollen. Patient has no central line. He has a condom catheter. Chest x-ray has shown a similar opacities bilaterally. Patient was started on antibiotics, and currently on AZT mycin, cefepime, and vancomycin. Infectious disease consultation has been requested to evaluate the patient. Notes reviewed D/W RN Monitor shows NSR Afebrile Cardizem drip off No complaints LIGIA negative for endocarditis BC (+) 01/22-01/29 BC 01/31, 02/01 negative CReatinine better On nasal O2 BP ok Has thrombus in LUE as well as in his LIJ, and LSC Antibiotics Oxacillin Rifampin Lines PIV Past Medical History Chronic kidney disease Type 2 diabetes Hypertension Dyslipidemia Previous stroke, with residual L weakness Atrial fibrillation/flutter CAD History of PUD Past Surgical History Throat and arm surgery Allergies: Coded Allergies: No Known Allergies (Unverified , 01/07/17) Objective . Vital Signs Date Time Temp Pulse Resp B/P (MAP) Pulse Ox O2 Delivery O2 Flow Rate FiO2 02/06/17 12:30 69 23 161/81 (107) 99 02/06/17 12:00 69 20 158/89 (112) 98 02/06/17 12:00 69 02/06/17 10:00 69 02/06/17 09:30 70 02/06/17 09:00 71 02/06/17 09:00 71 29 157/92 (113) 96 02/06/17 08:30 68 02/06/17 08:30 68 17 149/85 (106) 98 02/06/17 08:00 68 20 142/85 (104) 100 02/06/17 08:00 68 02/06/17 07:00 99 Nasal Cannula 2.00 21 02/06/17 06:00 66 02/06/17 05:00 65 18 133/75 (94) 100 02/06/17 04:00 66 18 107/76 (86) 100 02/06/17 04:00 79 02/06/17 03:00 65 18 129/72 (91) 100 02/06/17 02:00 69 16 134/81 (98) 100 02/06/17 02:00 81 02/06/17 01:00 67 18 104/76 (85) 100 02/06/17 00:00 88 02/06/17 00:00 97.8 68 18 145/81 (102) 100 02/05/17 22:19 98 16 147/83 (104) 97 02/05/17 22:01 116 16 196/90 (125) 100 02/05/17 22:00 106 02/05/17 21:00 119 18 153/85 (107) 99 02/05/17 20:00 96 02/05/17 20:00 98.2 99 16 139/77 (97) 100 02/05/17 19:00 94 Nasal Cannula 2.00 02/05/17 18:00 100 02/05/17 17:30 108 02/05/17 17:00 99 02/05/17 16:30 97 02/05/17 16:29 91 02/05/17 16:27 97 02/05/17 16:00 96 02/05/17 16:00 98.4 . Laboratory Tests Test 02/06/17 05:42 White Blood Count 13.5 TH/MM3 Red Blood Count 2.43 MIL/MM3 Hemoglobin 7.3 GM/DL Hematocrit 21.6 % Mean Corpuscular Volume 88.8 FL Mean Corpuscular Hemoglobin 29.8 PG Mean Corpuscular Hemoglobin Concent 33.6 % Red Cell Distribution Width 15.3 % Platelet Count 221 TH/MM3 Mean Platelet Volume 8.5 FL Laboratory Tests Test 02/05/17 05:26 Blood Urea Nitrogen 19 MG/DL Creatinine 1.61 MG/DL Random Glucose 118 MG/DL Total Protein 7.2 GM/DL Albumin 1.2 GM/DL Calcium Level 7.7 MG/DL Phosphorus Level 3.4 MG/DL Magnesium Level 1.5 MG/DL Alkaline Phosphatase 76 U/L Aspartate Amino Transf (AST/SGOT) 55 U/L Alanine Aminotransferase (ALT/SGPT) 8 U/L Total Bilirubin 0.6 MG/DL Sodium Level 135 MEQ/L Potassium Level 4.3 MEQ/L Chloride Level 106 MEQ/L Carbon Dioxide Level 23.2 MEQ/L Anion Gap 6 MEQ/L Estimat Glomerular Filtration Rate 54 ML/MIN Imaging Last Impressions Abdomen X-Ray 01/25/17 0000 Signed Impressions: Service Date/Time: Wednesday, January 25, 2017 14:33 - CONCLUSION: Nonspecific, nonobstructive bowel gas pattern. Scot Sung MD Upper Extremity Ultrasound 01/23/17 0000 Signed Impressions: Service Date/Time: Monday, January 23, 2017 17:45 - CONCLUSION: Thrombus identified within the internal jugular, subclavian, and the basilic veins. Jeyson Luciano MD Chest X-Ray 01/21/17 0000 Signed Impressions: Service Date/Time: Saturday, January 21, 2017 22:42 - CONCLUSION: New hazy opacity in both lungs with concern for ovarian edema and congestive heart failure. Jose Espinal MD Head CT 01/10/17 1257 Signed Impressions: Service Date/Time: Tuesday, January 10, 2017 13:32 - CONCLUSION: No acute disease. Jermaine Malone Jr., MD Renal Ultrasound 01/10/17 0000 Signed Impressions: Service Date/Time: Tuesday, January 10, 2017 17:01 - CONCLUSION: Normal examination. Jermaine Malone Jr., MD Physical Exam GENERAL: Awake and alert, not in respiratory distress. SKIN: Warm and dry. No generalized rash, no ecchymoses and no evidence of embolic lesions. HEAD: Atraumatic. Normocephalic. No temporal wasting, or tenderness. EYES: [place] conjunctiva. No petechia or hemorrhage. Pupils equal, round and reactive to light. Extraocular movements full and intact. No scleral icterus. No injection or drainage. EARS, NOSE AND THROAT: Nose without bleeding or purulent nasal discharge. No sinus tenderness. Moist mucosa NECK: Trachea midline. Supple and not tender, no meningeal signs. Previous vascath site looks ok, dry CARDIOVASCULAR: Tachycardic, irregular rate and rhythm. No murmurs, rubs or gallops heard RESPIRATORY: Clear to auscultation. Breath sounds equal bilaterally. No rales , wheezing or rhonchi, decreased at the bases ABDOMEN: Soft, Not tender, not distended. No guarding or rebound. Bowel sounds present and normoactive. No organomegaly. EXTREMITIES: min BLE edema, no cyanosis. LUE is swollen : Some ulcers in scrotum and penile shaft NEUROLOGICAL: Awake and alert. L side plegic PSYCHIATRIC: calm, cooperative this morning LINE: No evidence of infection Assessment & Plan Remarks IMPRESSION Sepsis with MSSA - had vascath placed 01/10, removed 01/15 - has DVT LUE including LIJ and LSC, and previously had vascath and suspicious for infected thrombophlebitis - has basilar opacities, ?fluid; not coughing or congested, less likely PNA - BC still (+) Renal failure, creatinine has improved and has good UO Previous CVA with left sided weakness Atrial fib with RVR Leukocytosis, improving PLAN Continue Oxacillin Continue Rifampin Follow C/S He will need 6 weeks IV Abx from date of last (+) BC - if no other new (+) BC, anticipated end date is Mar 11 Labs while on Abx: CBC, creat, CBC Follow CBC Monitor progress D/W Kimi Pal MD Feb 06, 2017 14:34
[2017-02-06] MEDS: HYDROmorphone HCL PF 2 MG/ML VIAL IV PUSH PRN (16:48)
[2017-02-06] MEDS: ATORVASTATIN 80 MG TAB PO SCH (21:26)
[2017-02-07] VITALS (19 sets, daily range): BP systolic 136–169; BP diastolic 80–102; PULSE 71–78; RESP 14–25; TEMP 97.8–99; O2SAT 94–100
[2017-02-07] MEDS: METOCLOPRAMIDE HCL 10 MG/2 ML VIAL IV PUSH SCH ×3 (01:27→17:29)
[2017-02-07] MEDS: RIFAMPIN 150 MG CAP PO SCH ×2 (01:27→12:23)
[2017-02-07] MEDS: CHLORHEXIDINE GLUCONATE 2 % 1 PACK (2 CLOTHS) TOP SCH (02:17)
[2017-02-07] MEDS: OXACILLIN INJ 2 GM in SODIUM CHLORIDE 0.9% INJ 100 ML IV SCH ×5 (03:33→20:37)
[2017-02-07 04:53] LABS: AUTOMATED NEUTROPHIL # 12.9 TH/MM3 (1.8-7.7); BASOPHIL # 0.1 TH/MM3 (0-0.2); BASOPHIL % 0.5 % (0.0-2.0); EOSINOPHIL # 0.3 TH/MM3 (0-0.4); EOSINOPHIL % 1.9 % (0.0-4.0); LYMPH % 9.5 % (9.0-44.0); LYMPHOCYTE # 1.5 TH/MM3 (1.0-4.8); MEAN CELL VOLUME 89.4 FL (80.0-100.0); MEAN CORPUSCULAR HEMOGLOBIN 28.9 PG (27.0-34.0); MEAN CORPUSCULAR HGB CONC 32.3 % (32.0-36.0); MONO % 9.1 % (0.0-8.0); PLATELET COUNT 254 TH/MM3 (150-450); RED BLOOD COUNT 1.69 MIL/MM3 (4.50-5.90); RED CELL DISTRIBUTION WIDTH 15.8 % (11.6-17.2); WHITE BLOOD COUNT 16.3 TH/MM3 (4.0-11.0)
[2017-02-07 04:55] LABS: APTT (PATIENT) 54.9 SEC (24.3-30.1)
[2017-02-07 04:58] LABS: HEMO FLAGS DIFF FINAL
[2017-02-07 05:01] LABS: HEMATOCRIT 15.1 % (39.0-51.0)
[2017-02-07 05:08] LABS: ALKALINE PHOSPHATASE 53 U/L (45-117); ALT (GPT) 9 U/L (12-78); ANION GAP 8 MEQ/L (5-15); AST (GOT) 55 U/L (15-37); BICARBONATE 20.2 MEQ/L (21.0-32.0); BLOOD UREA NITROGEN 20 MG/DL (7-18); CHLORIDE 107 MEQ/L (98-107); GLOMERULAR FILTRATION RATE 51 ML/MIN (>89); MAGNESIUM 1.4 MG/DL (1.5-2.5); POTASSIUM 5.2 MEQ/L (3.5-5.1); SODIUM (NA) 135 MEQ/L (136-145); TOTAL BILIRUBIN ADULT 0.5 MG/DL (0.2-1.0)
[2017-02-07] MEDS ORDERED: SODIUM CHLOR 0.9% 250 ML INJ 250 ML IV ONE ×2 (05:15→09:30)
[2017-02-07] MEDS: DILTIAZEM HCL 30 MG TAB PO SCH ×4 (05:41→23:01)
[2017-02-07] MEDS: INSULIN NovoLIN REGULAR SUPPLEMENTAL SCALE SQ SCH ×3 (05:44→16:58)
[2017-02-07] MEDS: HEPARIN-D5W 25,000 U/250 ML 250 ML IV PRN (07:33)
[2017-02-07] MEDS: AMIODARONE 200 MG TAB PO SCH (08:23)
[2017-02-07] MEDS: QUEtiapine FUMARATE 25 MG TAB PO SCH ×2 (08:23→23:00)
[2017-02-07] MEDS: guaiFENesin E.R. 600 MG TAB PO SCH ×2 (08:23→23:00)
[2017-02-07] MEDS: ASPIRIN EC 81 MG TABEC PO SCH (08:23)
[2017-02-07] MEDS: BISACODYL 10 MG SUPP RECTAL SCH (08:24)
[2017-02-07] MEDS: INSULIN DETEMIR 100 UNITS/ML VIAL SQ SCH ×2 (08:24→23:15)
[2017-02-07] MEDS: CALCIUM CARBONATE 1.25 GM (CA 500 MG) TAB PO SCH ×3 (08:24→17:29)
[2017-02-07] MEDS: METOPROLOL TARTRATE 50 MG TAB PO SCH ×2 (08:24→22:59)
[2017-02-07] MEDS: DOCUSATE SODIUM 50 MG/SENNA 8.6 MG TAB PO SCH ×2 (08:24→23:00)
[2017-02-07] MEDS: NYSTATIN 100,000 U/GM PWD 15 GM BTL TOPICAL SCH ×2 (08:27→23:10)
[2017-02-07] MEDS: POTASSIUM PHOSPHATE MONOBASIC 500 MG TAB PO SCH ×2 (09:00→22:59)
[2017-02-07] MEDS ORDERED: ACETAMINOPHEN 325 MG TAB PO PRN (09:30)
[2017-02-07] MEDS ORDERED: diphenhydrAMINE HCL 25 MG CAP PO PRN (09:30)
[2017-02-07] MEDS: SODIUM CHLORIDE 0.9% FLUSH 10 ML FLUSH IV FLUSH SCH ×2 (12:24→20:37)
[2017-02-07] MEDS: SODIUM CHLOR 0.9% 1000 ML INJ 1,000 ML IV SCH (12:24)
[2017-02-07] MEDS: hydrALAZINE HCL 20 MG/ML VIAL IV PUSH PRN (13:10)
--- NOTE | 2017-02-07 14:00 | HHI.PR ---
Subjective Remarks HAS MSSA ON OXACILLIN BEING TRANSFUSED 2 UNITS PRBC NEEDS TO TRANSITION OFF CARDIZEM DRIP SWITCH TO PO DW RN AND PT 02-04 HAD RIGHT LE PAIN- US NEGATIVE FOR DVT HYPOMAG- WILL REPLACE DW RN AND PT OK FOR OUT OF ICU PT AND OT EVAL AND TREAT 02-05 STARTED ON AMIODARONE DRIP FOR HIS AFIB NO BM WILL GIVE DULCOLAX SUPP NOW DW RN AND PT AM LABS 02-06 SWITCHED TO PO AMIODARONE TODAY DW PATIENT AND RN OK FOR FLOOR NO BM YET 02-07 getting BLOOD TRANSFUSION 3UNITS TODAY DW RN AND PT OK OUT OF ICU MAY NEED MORE BLOOD TOMORROW APPEARS TO BE TRANSFUSION DEPENDENT AT THIS TIME Objective Vitals Vital Signs Date Time Temp Pulse Resp B/P (MAP) Pulse Ox O2 Delivery O2 Flow Rate FiO2 02/07/17 13:23 98.4 78 20 156/89 02/07/17 11:33 97.8 74 25 151/84 100 02/07/17 09:30 99.0 74 20 154/85 94 02/07/17 08:45 98.7 72 20 155/88 94 02/07/17 07:00 96 Nasal Cannula 3.00 02/07/17 04:00 98.4 73 15 136/80 (98) 96 02/07/17 04:00 73 02/07/17 00:00 98.8 75 14 136/84 (101) 97 02/07/17 00:00 75 02/06/17 20:00 99.3 74 11 139/96 (110) 100 02/06/17 20:00 74 02/06/17 19:00 100 Nasal Cannula 3.00 02/06/17 16:00 98.1 76 22 158/91 (113) 98 02/06/17 16:00 69 02/06/17 16:00 69 02/06/17 14:00 69 I/O 02/06/17 02/06/17 02/06/17 02/07/17 02/07/17 02/07/17 07:00 15:00 23:00 07:00 15:00 23:00 Intake Total 1440 ml 1010 ml 941.5 ml 459 ml Output Total 300 ml 401 ml 550 ml Balance 1140 ml 609 ml 391.5 ml 459 ml Intake Oral 240 ml 240 ml 240 ml IV Total 1200 ml 770 ml 701.5 ml 29 ml Packed Cells 400 ml Blood Product IV Normal Saline Flush 30 ml Output Urine Total 300 ml 400 ml 550 ml Stool Total 1 ml # Voids 2 # Bowel Movements 0 Result Diagram: 02/07/1739902/[id number]/17399 Other Results Laboratory Tests Test 02/05/17 05:26 02/05/17 12:20 02/06/17 05:42 02/07/17 04:00 Blood Urea Nitrogen 19 MG/DL 20 MG/DL Creatinine 1.61 MG/DL 1.70 MG/DL Random Glucose 118 MG/DL 137 MG/DL Total Protein 7.2 GM/DL 7.0 GM/DL Albumin 1.2 GM/DL 1.1 GM/DL Calcium Level 7.7 MG/DL 7.6 MG/DL Phosphorus Level 3.4 MG/DL 4.3 MG/DL Magnesium Level 1.5 MG/DL 1.4 MG/DL Alkaline Phosphatase 76 U/L 53 U/L Aspartate Amino Transf (AST/SGOT) 55 U/L 55 U/L Alanine Aminotransferase (ALT/SGPT) 8 U/L 9 U/L Total Bilirubin 0.6 MG/DL 0.5 MG/DL Sodium Level 135 MEQ/L 135 MEQ/L Potassium Level 4.3 MEQ/L 5.2 MEQ/L Chloride Level 106 MEQ/L 107 MEQ/L Carbon Dioxide Level 23.2 MEQ/L 20.2 MEQ/L Anion Gap 6 MEQ/L 8 MEQ/L Estimat Glomerular Filtration Rate 54 ML/MIN 51 ML/MIN Activated Partial Thromboplast Time 69.5 SEC 66.2 SEC 54.9 SEC White Blood Count 13.5 TH/MM3 16.3 TH/MM3 Red Blood Count 2.43 MIL/MM3 1.69 MIL/MM3 Hemoglobin 7.3 GM/DL 4.9 GM/DL Hematocrit 21.6 % 15.1 % Mean Corpuscular Volume 88.8 FL 89.4 FL Mean Corpuscular Hemoglobin 29.8 PG 28.9 PG Mean Corpuscular Hemoglobin Concent 33.6 % 32.3 % Red Cell Distribution Width 15.3 % 15.8 % Platelet Count 221 TH/MM3 254 TH/MM3 Mean Platelet Volume 8.5 FL 8.3 FL Neutrophils (%) (Auto) 79.0 % Lymphocytes (%) (Auto) 9.5 % Monocytes (%) (Auto) 9.1 % Eosinophils (%) (Auto) 1.9 % Basophils (%) (Auto) 0.5 % Neutrophils # (Auto) 12.9 TH/MM3 Lymphocytes # (Auto) 1.5 TH/MM3 Monocytes # (Auto) 1.5 TH/MM3 Eosinophils # (Auto) 0.3 TH/MM3 Basophils # (Auto) 0.1 TH/MM3 CBC Comment DIFF FINAL Differential Comment Imaging Last Impressions Lower Extremity Ultrasound 02/04/17 0000 Signed Impressions: Service Date/Time: Saturday, February 04, 2017 07:41 - CONCLUSION: Normal examination. Jermaine Malone Jr., MD Abdomen/Pelvis CT 01/28/17 0000 Signed Impressions: Service Date/Time: Saturday, January 28, 2017 20:18 - CONCLUSION: 1. Bilateral pleural effusions and bibasilar infiltrates. 2. Cardiomegaly. 3. Subcutaneous edema. 4. Umbilical hernia. Jermaine Malone Jr., MD Abdomen X-Ray 01/25/17 0000 Signed Impressions: Service Date/Time: Wednesday, January 25, 2017 14:33 - CONCLUSION: Nonspecific, nonobstructive bowel gas pattern. Scot Sung MD Upper Extremity Ultrasound 01/23/17 0000 Signed Impressions: Service Date/Time: Monday, January 23, 2017 17:45 - CONCLUSION: Thrombus identified within the internal jugular, subclavian, and the basilic veins. Jeyson Luciano MD Chest X-Ray 01/21/17 0000 Signed Impressions: Service Date/Time: Saturday, January 21, 2017 22:42 - CONCLUSION: New hazy opacity in both lungs with concern for ovarian edema and congestive heart failure. Jose Espinal MD Head CT 01/10/17 1257 Signed Impressions: Service Date/Time: Tuesday, January 10, 2017 13:32 - CONCLUSION: No acute disease. Jermaine Malone Jr., MD Renal Ultrasound 01/10/17 0000 Signed Impressions: Service Date/Time: Tuesday, January 10, 2017 17:01 - CONCLUSION: Normal examination. Jermaine Malone Jr., MD Objective Remarks GENERAL: AWAKE ALERT AND ORIENTED TALKATIVE AND COOPERATIVE SKIN: Warm and dry. HEAD: Atraumatic. Normocephalic. EYES: Pupils equal and round. No scleral icterus. No injection or drainage. EOMI ENT: No nasal bleeding or discharge. Mucous membranes pink and moist. TONGUE IS MIDLINE NECK: Trachea midline. No JVD. SUPPLE CARDIOVASCULAR: IRRegular rate and rhythm. S1, S2 NO S3 OR S4 RESPIRATORY: No accessory muscle use. Clear to auscultation. Breath sounds equal bilaterally. GASTROINTESTINAL: Abdomen soft, non-tender, nondistended. Hepatic and splenic margins not palpable. MUSCULOSKELETAL: Extremities without clubbing, cyanosis, or edema. No obvious deformities. NEUROLOGICAL: Awake and alert. No obvious cranial nerve deficits. Motor grossly within normal limits. Five out of 5 muscle strength in the arms and legs ON RIGHT 4/4 ON LEFT SIDE. Normal speech. PSYCHIATRIC: Appropriate mood and affect; insight and judgment normal.SOME CONFUSION Procedures LIGIA Medications and IVs Current Medications Meclizine HCl (Antivert) 25 mg ONCE ONCE PO Last administered on 01/10/17 13 :42; Start 01/10/17 at 13:00; Stop 01/10/17 at 13:01; Status DC Sodium Chloride (NS Flush) 2 ml UNSCH PRN IVF FLUSH AFTER USING IV ACCESS; Start 01/10/17 at 13:00; Stop 01/10/17 at 22:25; Status DC Acetaminophen (Tylenol) 650 mg ONCE ONCE PO Last administered on 01/10/17 14 :07; Start 01/10/17 at 14:00; Stop 01/10/17 at 14:01; Status DC Insulin Human Regular (NovoLIN R INJ) 10 units ONCE ONCE IV PUSH Last administered on 01/10/17 16:14; Start 01/10/17 at 16:00; Stop 01/10/17 at 16 :01; Status DC Dextrose (D50w (Syr) Inj) 25 ml ONCE ONCE IV PUSH Last administered on 16:10; Start 01/10/17 at 16:00; Stop 01/10/17 at 16:01; Status DC Calcium Gluconate (Calcium Gluconate Inj) 1 gm ONCE ONCE IV PUSH Last administered on 01/10/17 16:09; Start 01/10/17 at 16:00; Stop 01/10/17 at 16 :01; Status DC Sodium Polystyrene Sulfonate (Kayexalate Liq) 15 gm ONCE ONCE PO ; Start 01/10 at 16:00; Stop 01/10/17 at 16:01; Status DC Sodium Bicarbonate 200 meq/Sodium Chloride 1,200 ml @ 100 mls/hr Q12H IV ; Start 01/10/17 at 16:15; Stop 01/11/17 at 14:47; Status DC Sodium Chloride 1,000 ml @ 999 mls/hr BOLUS ONCE IV Last administered on 16:43; Start 01/10/17 at 16:15; Stop 01/10/17 at 17:15; Status DC Sodium Chloride 1,000 ml @ 999 mls/hr BOLUS ONCE IV Last administered on 16:44; Start 01/10/17 at 16:15; Stop 01/10/17 at 17:15; Status DC Sodium Bicarbonate (Sodium Bicarbonate 8.4% Inj) 50 meq STK-MED ONCE .ROUTE ; Start 01/10/17 at 16:23; Stop 01/10/17 at 16:43; Status DC Sodium Bicarbonate 200 meq/Sterile Water 1,050 ml @ 150 mls/hr Q7H IV Last administered on 01/11/17 08:22; Start 01/10/17 at 16:45; Stop 01/11/17 at 14 :47; Status DC Sodium Chloride 1,000 ml @ 999 mls/hr BOLUS ONCE IV Last administered on 17:23; Start 01/10/17 at 17:00; Stop 01/10/17 at 18:00; Status DC Sodium Chloride 1,000 ml @ 999 mls/hr BOLUS ONCE IV Last administered on 17:23; Start 01/10/17 at 17:00; Stop 01/10/17 at 18:00; Status DC Sodium Chloride 1,000 ml @ 999 mls/hr BOLUS ONCE IV Last administered on 17:40; Start 01/10/17 at 17:00; Stop 01/10/17 at 18:00; Status DC Acetaminophen (Tylenol) 650 mg Q6H PRN PO PAIN SCALE 1 TO 4 Last administered on 02/01/17 00:12; Start 01/10/17 at 17:00 Albuterol Sulfate (Proair Hfa Inh) 2 puff Q6H PRN INH SHORTNESS OF BREATH; Start 01/10/17 at 17:00 Atorvastatin Calcium (Lipitor) 80 mg HS PO Last administered on 02/06/17 21: 26; Start 01/10/17 at 21:00 Nitroglycerin (Nitrostat Sl) 0.4 mg Q3H PRN SL CHEST PAIN; Start 01/10/17 at 17:00 Aspirin (Ecotrin Ec) 81 mg DAILY PO Last administered on 02/07/17 08:23; Start 01/10/17 at 17:00 Heparin Sodium/ Dextrose 250 ml @ 10 mls/hr TITRATE PRN IV Coagulation management Last administered on 01/11/17 01:03; Start 01/10/17 at 17:00; Stop 01/11/17 at 17:15; Status DC Insulin Aspart (NovoLOG SUPPLEMENTAL SCALE) 1 Q4H SQ Last administered on 04:39; Start 01/10/17 at 17:00; Stop 01/23/17 at 08:38; Status DC Sodium Chloride (NS Flush) 2 ml UNSCH PRN IV FLUSH FLUSH AFTER USING IV ACCESS ; Start 01/10/17 at 17:15; Stop 01/11/17 at 14:50; Status DC Sodium Chloride (NS Flush) 2 ml BID IV FLUSH Last administered on 02/07/17 12 :24; Start 01/10/17 at 21:00 Pantoprazole Sodium (Protonix) 40 mg DAILY PO ; Start 01/11/17 at 09:00; Stop 01/11/17 at 17:15; Status DC Miscellaneous Information 1 Q361D XX ; Start 01/10/17 at 17:15 Chlorhexidine Gluconate (Chlorhexidine 2% Cloth) Taper DAILY@04 TOP Last administered on 02/04/17 05:28; Start 01/11/17 at 04:00; Stop 01/07/18 at 03 :59 Chlorhexidine Gluconate (Chlorhexidine 2% Cloth) 3 pack UNSCH PRN TOP HYGIENIC CARE; Start 01/10/17 at 17:15 Senna/Docusate Sodium (Afia-Colace) 1 tab BID PO Last administered on 08:24; Start 01/10/17 at 21:00 Magnesium Hydroxide (Milk Of Magnesia Liq) 30 ml Q12H PRN PO Mild constipation Last administered on 02/04/17 08:51; Start 01/10/17 at 17:15 Sennosides (Senokot) 17.2 mg Q12H PRN PO Moderate constipation; Start at 17:15 Bisacodyl (Dulcolax Supp) 10 mg DAILY PRN RECTAL SEVERE CONSITIPATION; Start 01/10/17 at 17:15 Lactulose (Lactulose Liq) 30 ml DAILY PRN PO SEVERE CONSITIPATION Last administered on 02/04/17 08:51; Start 01/10/17 at 17:15 Sodium Bicarbonate 0 ml @ As Directed STK-MED ONCE .ROUTE ; Start 01/10/17 at 17:23; Stop 01/10/17 at 17:24; Status DC Sodium Bicarbonate (Sodium Bicarbonate 8.4% Inj) 50 meq STK-MED ONCE .ROUTE ; Start 01/10/17 at 17:23; Stop 01/10/17 at 17:24; Status DC Sodium Chloride 1,000 ml @ 0 mls/hr Q0M PRN OTHER For Prime & Rinse Back Last administered on 01/10/17 22:05; Start 01/10/17 at 17:47; Stop 02/03/17 at 12 :19; Status DC Heparin Sodium (Porcine) (Heparin Inj) 8,000 units UNSCH PRN IV FLUSH WITH DIALYSIS; Start 01/10/17 at 18:00; Stop 01/24/17 at 11:56; Status DC Sodium Chloride 1,000 ml @ 200 mls/hr Q5H PRN IV WITH DIALYSIS; Start at 17:47; Stop 02/03/17 at 12:19; Status DC Sodium Chloride 1,000 ml @ 0 mls/hr Q0M PRN OTHER WITH DIALYSIS; Start at 17:47; Stop 02/03/17 at 12:19; Status DC Mannitol (Mannitol Inj) 12.5 gm UNSCH PRN IV WITH DIALYSIS; Start 01/10/17 at 18:00; Stop 02/03/17 at 12:19; Status DC Albumin Human 100 ml @ 60 mls/hr UNSCH PRN IV WITH DIALYSIS; Start 01/10/17 at 18:00; Stop 02/03/17 at 12:19; Status DC Sodium Chloride (NS Flush) 5 ml UNSCH PRN IV FLUSH WITH DIALYSIS; Start at 18:00; Stop 02/03/17 at 12:19; Status DC Heparin Sodium (Porcine) (Heparin Inj) UNSCH PRN .XX WITH DIALYSIS; Start at 18:00; Stop 02/03/17 at 12:19; Status DC Gentamicin Sulfate (Gentamicin (Dialysis) Inj) 20 mg UNSCH PRN OTHER WITH DIALYSIS Last administered on 01/10/17 22:03; Start 01/10/17 at 18:00; Stop 02/03/17 at 12:19; Status DC Ondansetron HCl (Zofran Inj) 4 mg UNSCH PRN IV PUSH WITH DIALYSIS Last administered on 01/18/17 08:51; Start 01/10/17 at 18:00; Stop 02/03/17 at 12 :19; Status DC Acetaminophen (Tylenol) 650 mg UNSCH PRN PO for headach, pain, temp > 101F Last administered on 01/30/17 01:51; Start 01/10/17 at 18:00; Stop 02/03/17 at 12:19; Status DC Diphenhydramine HCl (Benadryl) 25 mg UNSCH PRN PO for hives/itching/ anaphylaxis Last administered on 02/03/17 02:33; Start 01/10/17 at 18:00; Stop 02/03/17 at 12:19; Status DC Nitroglycerin (Nitrostat Sl) 0.4 mg UNSCH PRN SL CHEST PAIN; Start 01/10/17 at 18:00; Stop 02/03/17 at 12:19; Status DC Clonidine (Catapres) 0.1 mg UNSCH PRN PO for BP > 180/100 X 2 readings Last administered on 01/15/17 02:07; Start 01/10/17 at 18:00; Stop 02/03/17 at 12 :19; Status DC Gelatin (Gelfoam 12 Mm/7 Mm Top) 1 foam UNSCH PRN TOP SEE LABEL COMMENTS; Start 01/10/17 at 18:00; Stop 02/03/17 at 12:19; Status DC Dextrose (D50w (Vial) Inj) 50 ml UNSCH PRN IV PUSH HYPOGLYCEMIA-SEE COMMENTS Last administered on 01/10/17 18:05; Start 01/10/17 at 22:30; Stop 01/24/17 at 16:15; Status DC Glucagon (Glucagon Inj) 1 mg UNSCH PRN OTHER HYPOGLYCEMIA-SEE COMMENTS; Start 01/10/17 at 22:30; Stop 01/24/17 at 16:15; Status DC Dexmedetomidine HCl 200 mcg/ Sodium Chloride 52 ml @ 5.46 mls/hr TITRATE PRN IV SEDATION Last administered on 01/12/17 14:53; Start 01/11/17 at 00:00 Metoprolol Tartrate (Lopressor) 25 mg Q12HR PO Last administered on 01/15/17 08:48; Start 01/11/17 at 21:00; Stop 01/15/17 at 11:09; Status DC Metoprolol Tartrate (Lopressor Inj) 5 mg Q1HR PRN IV PUSH RAPID HEART RATE Last administered on 01/14/17 21:16; Start 01/11/17 at 11:15; Stop 01/15/17 at 11:09; Status DC Diltiazem HCl 125 mg/Sodium Chloride 125 ml @ 5 mls/hr TITRATE PRN IV Tachycardia Last administered on 01/15/17 10:45; Start 01/11/17 at 17:30; Stop 01/15/17 at 11:11; Status DC Sodium Chloride 1,000 ml @ 84 mls/hr [id number] IV Last administered on 01:04; Start 01/12/17 at 13:00; Stop 01/13/17 at 12:51; Status DC Haloperidol Lactate (Haldol Inj) 5 mg Q4H PRN IV agitation Last administered on 02/04/17 05:40; Start 01/12/17 at 17:00 Diltiazem HCl (Cardizem) 60 mg Q6HR PO Last administered on 01/15/17 07:03; Start 01/13/17 at 06:00; Stop 01/15/17 at 11:09; Status DC Sodium Chloride 38.5 meq/Sterile Water 1,009.625 ml @ 84 mls/hr Q12H2M IV Last administered on 01/22/17 22:46; Start 01/13/17 at 15:00; Stop 01/23/17 at 11: 57; Status DC Metoclopramide HCl (Reglan Inj) 5 mg Q8H PRN IV PUSH NAUSEA OR VOMITING Last administered on 01/14/17 22:57; Start 01/14/17 at 11:15; Stop 01/15/17 at 08 :56; Status DC Potassium Chloride 100 ml @ 50 mls/hr Q2H IV Last administered on 01/14/17 15:19; Start 01/14/17 at 12:00; Stop 01/14/17 at 15:59; Status DC Hydralazine HCl (Apresoline Inj) 20 mg ONCE ONCE IV PUSH Last administered on 01/14/17 22:58; Start 01/14/17 at 23:00; Stop 01/14/17 at 23:01; Status DC Metoclopramide HCl (Reglan Inj) 5 mg Q8H IV PUSH Last administered on 08:27; Start 01/15/17 at 10:00 Hydralazine HCl (Apresoline Inj) 10 mg Q4H PRN IV PUSH SYS BP GREATER THAN 160 MMHG Last administered on 02/07/17 13:10; Start 01/15/17 at 10:00 Potassium Chloride 100 ml @ 100 mls/hr Q1H IV ; Start 01/15/17 at 10:00; Stop 01/15/17 at 10:00; Status DC Potassium Chloride 100 ml @ 50 mls/hr Q2H IV Last administered on 01/16/17 06:11; Start 01/15/17 at 10:00; Status Future Hold Diltiazem HCl 125 mg/Sodium Chloride 125 ml @ 15 mls/hr TITRATE PRN IV Tachycardia Last administered on 01/19/17 00:59; Start 01/15/17 at 17:30; Stop 01/19/17 at 08:01; Status DC Metoprolol Tartrate (Lopressor Inj) 5 mg Q4H IV PUSH Last administered on 01/16 08:48; Start 01/15/17 at 12:00; Stop 01/16/17 at 09:17; Status DC Heparin Sodium (Porcine) (Heparin Inj) 4,000 units NOW STAT IV PUSH ; Start at 11:11; Stop 01/15/17 at 11:12; Status Cancel Heparin Sodium (Porcine) (Heparin Inj) 5,000 units UNSCH PRN IV PUSH APTT LESS THAN 25; Start 01/15/17 at 17:15; Stop 01/24/17 at 11:56; Status DC Heparin Sodium (Porcine) (Heparin Inj) 2,500 units UNSCH PRN IV PUSH APTT 25 TO 39 Last administered on 01/16/17 06:17; Start 01/15/17 at 17:15; Stop 01/24/17 at 11:56; Status DC Heparin Sodium/ Dextrose 250 ml @ 10 mls/hr TITRATE PRN IV Coagulation management; Start 01/15/17 at 11:15; Status Cancel Heparin Sodium (Porcine) (Heparin Inj) 4,000 units NOW STAT IV PUSH Last administered on 01/15/17 15:45; Start 01/15/17 at 15:45; Stop 01/15/17 at 15 :51; Status DC Heparin Sodium/ Dextrose 250 ml @ 10 mls/hr TITRATE PRN IV Coagulation management Last administered on 01/20/17 05:11; Start 01/15/17 at 16:00; Stop 01/20/17 at 08:22; Status DC Clonidine (Catapres-Tts 0.3 Mg Patch.7d) 1 patch Q7D T-DERMAL Last administered on 02/06/17 09:10; Start 01/16/17 at 10:00 Metoprolol Tartrate (Lopressor Inj) 5 mg Q3H IV PUSH Last administered on 01/19 02:31; Start 01/16/17 at 11:00; Stop 01/19/17 at 08:01; Status DC Miscellaneous Information 1 Q7D T-DERMAL Last administered on 02/06/17 09:10 ; Start 01/16/17 at 10:00 Guaifenesin (Mucinex Er) 600 mg BID PO Last administered on 02/07/17 08:23; Start 01/16/17 at 21:00 Magnesium Sulfate/ Dextrose 100 ml @ 100 mls/hr ONCE ONCE IV Last administered on 01/16/17 14:14; Start 01/16/17 at 12:00; Stop 01/16/17 at 12 :59; Status DC Magnesium Sulfate/ Dextrose 100 ml @ 100 mls/hr Q1H IV Last administered on 11:45; Start 01/17/17 at 10:45; Stop 01/17/17 at 12:44; Status DC Calcium Gluconate 1 gm/Sodium Chloride 110 ml @ 110 mls/hr ONCE ONCE IV Last administered on 01/17/17 12:00; Start 01/17/17 at 12:00; Stop 01/17/17 at 12 :59; Status DC Calcium Carbonate (Oscal) 500 mg TID PO Last administered on 02/07/17 12:23; Start 01/17/17 at 13:00 Potassium Phosphate (K-Phos) 500 mg Q12HR PO Last administered on 02/06/17 21 :27; Start 01/17/17 at 14:00 Quetiapine Fumarate (SEROquel) 25 mg BID PO Last administered on 02/07/17 08: 23; Start 01/17/17 at 21:00 Sodium Chloride 500 ml @ 500 mls/hr BOLUS ONCE IV Last administered on 09:00; Start 01/18/17 at 09:00; Stop 01/18/17 at 09:59; Status DC Magnesium Sulfate/ Dextrose 100 ml @ 100 mls/hr ONCE ONCE IV Last administered on 01/18/17 12:48; Start 01/18/17 at 12:30; Stop 01/18/17 at 13 :29; Status DC Calcium Gluconate 1 gm/Dextrose 110 ml @ 110 mls/hr ONCE ONCE IV Last administered on 01/18/17 12:30; Start 01/18/17 at 12:30; Stop 01/18/17 at 13 :29; Status DC Potassium Chloride (KCl) 20 meq ONCE ONCE PO Last administered on 01/18/17 14:00; Start 01/18/17 at 14:00; Stop 01/18/17 at 14:01; Status DC Metoprolol Tartrate (Lopressor) 50 mg Q8HR PO Last administered on 01/29/17 06 :27; Start 01/19/17 at 14:00; Stop 01/29/17 at 13:38; Status DC Diltiazem HCl (Cardizem) 90 mg TID PO Last administered on 01/19/17 18:42; Start 01/19/17 at 09:00; Stop 01/20/17 at 08:22; Status DC Warfarin Sodium (Coumadin) 5 mg DAILY@1600 PO Last administered on 01/19/17 15:43; Start 01/19/17 at 16:00; Stop 01/20/17 at 08:22; Status DC Diltiazem HCl (Cardizem Cd) 300 mg DAILY PO Last administered on 01/22/17 09: 12; Start 01/20/17 at 09:00; Stop 01/23/17 at 11:56; Status DC Labetalol HCl (Trandate Inj) 10 mg Q4H PRN IV PUSH SBP>160, DBP>90 Last administered on 01/20/17 17:27; Start 01/20/17 at 08:30 Magnesium Sulfate/ Dextrose 100 ml @ 100 mls/hr ONCE ONCE IV Last administered on 01/20/17 13:26; Start 01/20/17 at 12:00; Stop 01/20/17 at 12 :59; Status DC Potassium Chloride 100 ml @ 50 mls/hr BOLUS ONCE IV Last administered on 13:27; Start 01/20/17 at 13:00; Stop 01/20/17 at 14:59; Status DC Magnesium Sulfate/ Dextrose 100 ml @ 100 mls/hr ONCE ONCE IV Last administered on 01/21/17 17:48; Start 01/21/17 at 17:15; Stop 01/21/17 at 18:14 ; Status DC Cefepime HCl 1000 mg/Sodium Chloride 100 ml @ 200 mls/hr Q12H IV Last administered on 01/24/17 19:39; Start 01/22/17 at 09:00; Stop 01/24/17 at 20:07 ; Status DC Azithromycin 250 mg/Sodium Chloride 250 ml @ 250 mls/hr Q24H IV Last administered on 01/23/17 11:20; Start 01/22/17 at 10:00; Stop 01/23/17 at 13:29 ; Status DC Pharmacy Profile Note 0 ml @ 0 mls/hr UNSCH OTHER ; Start 01/23/17 at 05:45; Stop 01/23/17 at 10:20; Status DC Vancomycin HCl 1250 mg/Sodium Chloride 262.5 ml @ 250 mls/hr NOW ONCE IV Last administered on 01/23/17 06:39; Start 01/23/17 at 06:00; Stop 01/23/17 at 07:02; Status DC Insulin Detemir (Levemir Inj) 5 units Q12HR SQ Last administered on 02/07/17 08:24; Start 01/23/17 at 09:00 Vancomycin HCl 1250 mg/Sodium Chloride 262.5 ml @ 262.5 mls/ hr ONCE ONCE IV ; Start 01/23/17 at 09:15; Stop 01/23/17 at 10:19; Status DC Pharmacy Profile Note 0 ml @ 0 mls/hr UNSCH OTHER ; Start 01/23/17 at 10:15; Stop 01/24/17 at 20:07; Status DC Diltiazem HCl 125 mg/Sodium Chloride 125 ml @ 5 mls/hr TITRATE PRN IV Tachycardia Last administered on 02/01/17 11:45; Start 01/23/17 at 12:00; Stop 02/03/17 at 12:41; Status DC Sodium Chloride 1,000 ml @ 84 mls/hr [id number] IV Last administered on 08:56; Start 01/23/17 at 12:00; Stop 02/03/17 at 12:17; Status DC Magnesium Sulfate/ Dextrose 100 ml @ 100 mls/hr ONCE ONCE IV Last administered on 01/23/17 13:12; Start 01/23/17 at 13:00; Stop 01/23/17 at 13:59 ; Status DC Calcium Gluconate (Calcium Gluconate Inj) 1 gm ONCE ONCE IV PUSH ; Start at 12:00; Stop 01/23/17 at 12:01; Status UNV Calcium Gluconate 1 gm/Sodium Chloride 110 ml @ 110 mls/hr ONCE ONCE IV Last administered on 01/23/17 14:14; Start 01/23/17 at 14:00; Stop 01/23/17 at 14:59 ; Status DC Hydromorphone HCl (Dilaudid Pf Inj) 0.5 mg Q4HR PRN IV PUSH SEE LABEL COMMENTS Last administered on 02/04/17 16:05; Start 01/23/17 at 14:45 Hydromorphone HCl (Dilaudid Pf Inj) 0.75 mg Q4HR PRN IV PUSH SEE LABEL COMMENTS Last administered on 02/06/17 16:48; Start 01/23/17 at 14:45 Heparin Sodium/ Dextrose 250 ml @ 5 mls/hr CONTINUOUS IV ; Start 01/24/17 at 12: 00; Stop 01/24/17 at 13:29; Status DC Heparin Sodium/ Dextrose 250 ml @ 18 mls/hr TITRATE PRN IV Coagulation Management Last administered on 02/07/17 07:33; Start 01/24/17 at 12:00 Dextrose (D50w (Vial) Inj) 25 ml UNSCH PRN IV PUSH HYPOGLYCEMIA-SEE COMMENTS; Start 01/24/17 at 16:00 Insulin Human Regular (NovoLIN R SUPPLEMENTAL SCALE) 1 Q6HR SQ Last administered on 02/05/17 00:41; Start 01/24/17 at 18:00 Cefazolin Sodium/ Dextrose 50 ml @ 150 mls/hr Q8H IV Last administered on 01/29 13:05; Start 01/24/17 at 20:00; Stop 01/29/17 at 13:26; Status DC Metoprolol Tartrate (Lopressor Inj) 5 mg ONCE ONCE IV PUSH Last administered on 01/26/17 06:12; Start 01/26/17 at 06:00; Stop 01/26/17 at 06:01; Status DC Calcium Gluconate 1 gm/Dextrose 110 ml @ 110 mls/hr ONCE ONCE IV Last administered on 01/28/17 11:35; Start 01/28/17 at 11:30; Stop 01/28/17 at 12:29 ; Status DC Rifampin (Rifampin) 300 mg Q12H PO Last administered on 02/07/17 12:23; Start 01/28/17 at 14:00 Calcium Gluconate 1 gm/Dextrose 110 ml @ 110 mls/hr ONCE ONCE IV Last administered on 01/29/17 13:04; Start 01/29/17 at 10:30; Stop 01/29/17 at 11:29 ; Status DC Cefazolin Sodium/ Dextrose 50 ml @ 150 mls/hr Q12H IV Last administered on 11:46; Start 01/30/17 at 00:00; Stop 01/30/17 at 15:01; Status DC Metoprolol Tartrate (Lopressor) 100 mg BID PO Last administered on 02/07/17 08:24; Start 01/29/17 at 21:00 Calcium Gluconate 1 gm/Dextrose 110 ml @ 110 mls/hr ONCE ONCE IV Last administered on 01/30/17 08:38; Start 01/30/17 at 08:00; Stop 01/30/17 at 08 :59; Status DC Diltiazem HCl (Cardizem) 30 mg Q6HR PO Last administered on 02/07/17 12:24; Start 01/30/17 at 12:00 Oxacillin Sodium 2 gm/Sodium Chloride 100 ml @ 200 mls/hr Q4H IV ; Start 01/30 at 15:00; Stop 01/30/17 at 15:11; Status DC Oxacillin Sodium 2 gm/Sodium Chloride 100 ml @ 200 mls/hr Q4H IV Last administered on 02/07/17 12:23; Start 01/30/17 at 16:00 Calcium Gluconate 1 gm/Sodium Chloride 110 ml @ 110 mls/hr NOW ONCE IV Last administered on 01/31/17 08:43; Start 01/31/17 at 07:00; Stop 01/31/17 at 07 :59; Status DC Calcium Gluconate 1 gm/Sodium Chloride 100 ml @ 100 mls/hr ONCE ONCE IV ; Start 01/31/17 at 07:45; Stop 01/31/17 at 08:44; Status Cancel Calcium Gluconate 1 gm/Sodium Chloride 100 ml @ 100 mls/hr ONCE ONCE IV Last administered on 02/01/17 10:25; Start 02/01/17 at 09:00; Stop 02/01/17 at 09 :59; Status DC Sodium Chloride 250 ml @ 15 mls/hr ONCE ONCE IV Last administered on 13:12; Start 02/01/17 at 07:45; Stop 02/02/17 at 00:24; Status DC Sodium Chloride 250 ml @ 15 mls/hr ONCE ONCE IV Last administered on 09:30; Start 02/03/17 at 06:45; Stop 02/03/17 at 23:24; Status DC Sodium Chloride 1,000 ml @ 42 mls/hr [id number] IV Last administered on 12:24; Start 02/03/17 at 12:30 Nystatin (Mycostatin Powder) 1 applic Q12HR TOPICAL Last administered on 08:27; Start 02/03/17 at 21:00 Magnesium Sulfate/ Dextrose 100 ml @ 100 mls/hr Q1H IV Last administered on 14:04; Start 02/04/17 at 12:00; Stop 02/04/17 at 13:59; Status DC Diltiazem HCl (Cardizem Inj) 15 mg ONCE ONCE IV Last administered on 02:21; Start 02/05/17 at 02:15; Stop 02/05/17 at 02:20; Status DC Sodium Chloride 500 ml @ 500 mls/hr BOLUS ONCE IV Last administered on 03:15; Start 02/05/17 at 03:15; Stop 02/05/17 at 04:14; Status DC Metoprolol Tartrate (Lopressor Inj) 2.5 mg ONCE ONCE IV PUSH Last administered on 02/05/17 04:21; Start 02/05/17 at 04:15; Stop 02/05/17 at 04 :16; Status DC Metoprolol Tartrate (Lopressor Inj) 2.5 mg ONCE ONCE IV PUSH Last administered on 02/05/17 05:26; Start 02/05/17 at 05:15; Stop 02/05/17 at 05 :16; Status DC Sodium Chloride 500 ml @ 500 mls/hr BOLUS ONCE IV Last administered on 05:25; Start 02/05/17 at 05:15; Stop 02/05/17 at 06:14; Status DC Amiodarone HCl 450 mg/Dextrose 250 ml @ 33.33 mls/ hr Q7H31M PRN IV Per Protocol Last administered on 02/05/17 16:29; Start 02/05/17 at 06:26; Stop 02/06/17 at 08:56; Status DC Amiodarone HCl 150 mg/Dextrose 100 ml @ 100 mls/hr Q1H ONCE IV Last administered on 02/05/17 06:54; Start 02/05/17 at 06:16; Stop 02/05/17 at 07 :15; Status DC Bisacodyl (Dulcolax Supp) 10 mg DAILY RECTAL Last administered on 02/07/17 08 :24; Start 02/05/17 at 12:00 Amiodarone HCl (Cordarone) 400 mg DAILY PO Last administered on 02/07/17 08: 23; Start 02/06/17 at 10:00 Sodium Chloride 250 ml @ 15 mls/hr ONCE ONCE IV ; Start 02/07/17 at 05:15; Stop 02/07/17 at 09:30; Status DC Sodium Chloride 250 ml @ 15 mls/hr ONCE ONCE IV Last administered on 09:30; Start 02/07/17 at 09:30; Stop 02/08/17 at 02:09 Acetaminophen (Tylenol) 650 mg Q4H PRN PO SEE LABEL COMMENTS Last administered on 02/07/17 13:10; Start 02/07/17 at 09:30; Stop 02/07/17 at 23:59 Diphenhydramine HCl (Benadryl) 25 mg Q4H PRN PO SEE LABEL COMMENTS Last administered on 02/07/17 13:10; Start 02/07/17 at 09:30; Stop 02/07/17 at 23 :59 A/P Problem List: (1) Acute on chronic kidney failure ICD Code: N17.9 - Acute kidney failure, unspecified; N18.9 - Chronic kidney disease, unspecified (2) Combined metabolic and respiratory acidosis (3) Acute metabolic encephalopathy ICD Code: G93.41 - Metabolic encephalopathy (4) NSTEMI (non-ST elevated myocardial infarction) ICD Code: I21.4 - Non-ST elevation (NSTEMI) myocardial infarction (5) Hyperkalemia ICD Code: E87.5 - Hyperkalemia Status: Acute (6) Metabolic acidemia ICD Code: E87.2 - Acidosis (7) History of CVA (cerebrovascular accident) ICD Code: Z86.73 - Personal history of transient ischemic attack (TIA), and cerebral infarction without residual deficits Status: Chronic (8) Diabetes ICD Code: E11.9 - Type 2 diabetes mellitus without complications Status: Acute (9) HTN (hypertension) ICD Code: I10 - Essential (primary) hypertension Status: Chronic Assessment and Plan 56-year-old male admitted secondary to bacteremia, fever, A. fib RVR, left arm DVT, encephalopathy. Labs reviewed. Hemoglobin level dropped. 2 units packed red blood cells transfused 02/01/17. Calcium level is low and supplementation provided. Continue to monitor renal function and white blood cell count. Labs ordered for further monitoring. WILL NEED MORE BLOOD TRANSFUSIONS IN THE FUTURE Labs reviewed. Follow Hgb as anemia is still exhibiting a progressive decline. Labs ordered for further monitoring. Acute blood loss anemia Obtain stool occult blood study Transfuse 2 units packed red blood cells on 02/01/17 Monitor hemoglobin TRANSFUSE 2 UNITS PRBC - AM LABS TRANSFUSSE 3 UNITS PRBC 02-07 ?TRANSFUSION DEPENDENT?? Acute Metabolic Encephalopathy Agitated Delirium History of Previous CVA with left hemiparesis Delirium Less oriented today Follow clinically Check ammonia level Decision-making capacity does not exist in this patient Severe combined Metabolic and respiratory acidosis Resolved Continue bronchodilators Continue incentive spirometry Continue mucolytic A flutter/fibrillation with RVR Elevated troponin Coronary artery disease By mouth Cardizem continued-SWITCH OFF IV Continue metoprolol Cardiology following IV heparin STARTED ON AMIODARONE DRIP 02-05 SWITCHED TO PO AMIODARONE 400MG PO DAILY Left upper extremity DVT Continue IV heparin Follow clinically Diabetes mellitus type 2 Follow blood sugars Insulin sliding scale Diabetic diet Sepsis Resolved MSSA bacteremia Suspected infected thrombophlebitis Continue cefazolin Continue rifampin LIGIA showed no vegetations ID following Continue to follow cultures WILL NEED ANTIBIOTICS THROUGH MAR 11 PER ID Acute kidney injury Nephrology following Dialysis if needed Monitor renal function Monitor electrolytes DVT prophylaxis IV heparin HYPOMAGNESIUM WILL REPLACE AND RECHECK IN AM ANEMIA - AM LABS Discharge Planning NEEDS SNF [place] IF ABLE TO GO Problem Qualifiers (1) Diabetes: (2) HTN (hypertension): Qualified Codes: I10 - Essential (primary) hypertension Mt Kemp DO Feb 07, 2017 14:00
[2017-02-07] MEDS: HALOPERIDOL LACTATE 5 MG/ML AMP IV PRN (19:36)
--- NOTE | 2017-02-07 20:09 | MB ---
cc: TM PHILLIP,JAIR De Souza M.D. DATE OF CONSULTATION 02/07/2017 DATE OF [address] Mt Phillip CHIEF COMPLAINT Dr. Phillip requested consultation regarding anemia. HISTORY OF PRESENT ILLNESS Mr. Andrews is a 56-year-old man with history of chronic kidney disease, previous CVA with residual left-sided weakness. He presented to the emergency room during this admission with generalized weakness and dizziness. He had acute renal failure. His creatinine was 10.14. He had metabolic acidosis, hyperkalemia and had one hemodialysis session then his acute renal failure improved. His ATN resolved. He has been followed by nephrology. At baseline he lives in a fci and walks with a cane. He was seen by psychiatry recently. His insight was fair. His judgment is impulsive. He was poorly cooperative. He has some delirium due to unknown psychological condition. No psychotropics were recommended. The patient is being observed. His caregiver had thought that he was a bit more confused particularly after the recent change of rooms. He was seen by infectious disease for sepsis with MSSA. His vas cath was removed. Blood culture is still positive. He is continued on oxacillin and Rifampin. Hematology is consulted for acute anemia. On admission he was found to have a significant decrease in hemoglobin from 10.2 to 6.4. He was transfused 2 units of packed red cells on 01/10. His hemoglobin improved to 13. He became gradually anemic over the next 2 weeks. His hemoglobin drifted down until a hemoglobin of 6.4 on 02/11/2017. He was transfused another 2 units of packed red cells. His hemoglobin went up to 7.5. On the his hemoglobin came down to 6.3. He was transfused again, 2 units of packed red cells and his hemoglobin came up to 8.2 only to come down 4 days later with a hemoglobin of 4.9. Hematology/Oncology is consulted for the above. No history could really be obtained for Mr. Andrews. He was awake, poorly cooperative. He insists on his arm being elevated and a heating blanket with vibration that calms him. He speaks with a slurred speech. Review of his labs shows a BUN of 20, creatinine 1.7. Magnesium is slightly decreased. AST is elevated at 55, ALT is normal. Albumin is decreased at 1.1. Hemoglobin is 4.9. Platelet count is normal. White blood cell count is elevated 16.3. Bilirubin is normal. Blood bank test shows that he is O+. There are no antibodies detected. PAST MEDICAL HISTORY Chronic kidney disease, prior stroke with left-sided weakness, type 2 diabetes, hypertension, dyslipidemia, atrial fibrillation/flutter, coronary artery disease. History of peptic ulcer disease. ATN, acute renal failure resolving. PAST SURGICAL HISTORY History of throat and arm surgery. Vas cath placement and removal. ALLERGIES NO KNOWN DRUG ALLERGIES. SOCIAL HISTORY Lives in a fci. Denies any tobacco, alcohol or illicit drug use. FAMILY HISTORY Unable to obtain family history. Review of family history from electronic medical record shows family history of diabetes and kidney disease. PHYSICAL EXAMINATION VITAL SIGNS: Temperature 98.7, heart rate 74, respiratory rate 20, blood pressure 169/95, saturation 100%. GENERAL: Mr. Andrews is a well-developed, well-nourished man who looks older than stated age. He is mildly obese. HEENT: His pupils are round and reactive. He has muddy sclerae. NECK: Supple. LUNGS: Lungs are clear. CARDIOVASCULAR: Exam reveals normal rate, rhythm. ABDOMEN: Abdomen is distended and large. Organomegaly could not be appreciated. EXTREMITIES: Lower extremity with 1+ edema. There is some abrasion of his skin. He has enlarged scrotum. The left arm is significantly larger than the right. LABORATORY DATA As described above. ASSESSMENT/PLAN Mr. Andrews is a 56-year-old man with multiple medical problems described above. Hematology/Oncology is consulted for the acute recurrent anemia. 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 I suspect that he has ongoing hemolysis with peripheral destruction. LDH, haptoglobin will be obtained. His bilirubin is normal which suggests an extravascular hemolysis. Ultrasound of the liver and spleen will be obtained. He is O+. We will look for any red cell related antibodies. Direct Kati antibody will be obtained. If warm antibody is detected he may respond to steroids. Would be difficult to give him steroids in light of the fact that he has ongoing infection. He is still blood culture positive from 01/29/2017 with Staphylococcus aureus. Supportive treatment continues. He has been ordered 3 units of packed red cells today and had been administered throughout the day. There is no signs of overt bleeding. There is no hematoma or retroperitoneal source of bleeding on clinical exam. We will continue to monitor. The rapidity which the hemoglobin drops argues against a bone marrow failure syndrome as the drop is quite brisk. Questions were answered to his satisfaction. Jair Fernandes MD RAD/EO /7:35 PM /7:55 PM MTDD
[2017-02-07] MEDS: HYDROmorphone HCL PF 2 MG/ML VIAL IV PUSH PRN (23:00)
[2017-02-07] MEDS: ATORVASTATIN 80 MG TAB PO SCH (23:01)
[2017-02-08] VITALS: BP 164/92; PULSE 76; RESP 17; TEMP 98.2; O2SAT 97
[2017-02-08] MEDS: OXACILLIN INJ 2 GM in SODIUM CHLORIDE 0.9% INJ 100 ML IV SCH ×7 (00:47→23:29)
[2017-02-08] MEDS: METOCLOPRAMIDE HCL 10 MG/2 ML VIAL IV PUSH SCH ×3 (00:47→17:00)
[2017-02-08 04:00] VITALS: BP 127/74; PULSE 74; RESP 19; TEMP 99.3; O2SAT 98
[2017-02-08] MEDS: CHLORHEXIDINE GLUCONATE 2 % 1 PACK (2 CLOTHS) TOP SCH (04:00)
[2017-02-08] MEDS: DILTIAZEM HCL 30 MG TAB PO SCH ×3 (04:45→17:00)
[2017-02-08] MEDS: RIFAMPIN 150 MG CAP PO SCH ×2 (04:45→12:16)
[2017-02-08] MEDS: INSULIN NovoLIN REGULAR SUPPLEMENTAL SCALE SQ SCH ×4 (04:57→16:54)
[2017-02-08 06:47] LABS: AUTOMATED NEUTROPHIL # 11.8 TH/MM3 (1.8-7.7); BASOPHIL # 0.1 TH/MM3 (0-0.2); BASOPHIL % 0.4 % (0.0-2.0); EOSINOPHIL # 0.3 TH/MM3 (0-0.4); EOSINOPHIL % 2.2 % (0.0-4.0); HEMATOCRIT 28.1 % (39.0-51.0); HEMO FLAGS DIFF FINAL; LYMPHOCYTE # 1.2 TH/MM3 (1.0-4.8); MEAN CORPUSCULAR HEMOGLOBIN 29.2 PG (27.0-34.0); MEAN CORPUSCULAR HGB CONC 33.6 % (32.0-36.0); MONO % 9.8 % (0.0-8.0); NEUT % 79.6 % (16.0-70.0); PLATELET COUNT 224 TH/MM3 (150-450); RED BLOOD COUNT 3.23 MIL/MM3 (4.50-5.90); RED CELL DISTRIBUTION WIDTH 14.7 % (11.6-17.2); WHITE BLOOD COUNT 14.8 TH/MM3 (4.0-11.0)
[2017-02-08 06:59] LABS: APTT (PATIENT) 42.6 SEC (24.3-30.1)
[2017-02-08 07:05] LABS: RETIC % 2.3 % (0.4-3.0); REVIEW FLAG FINAL
[2017-02-08 07:13] LABS: ALT (GPT) 8 U/L (12-78); ANION GAP 5 MEQ/L (5-15); AST (GOT) 57 U/L (15-37); BICARBONATE 24.6 MEQ/L (21.0-32.0); BLOOD UREA NITROGEN 20 MG/DL (7-18); CHLORIDE 106 MEQ/L (98-107); GLOMERULAR FILTRATION RATE 50 ML/MIN (>89); LDH SERUM 284 U/L (87-241); MAGNESIUM 1.5 MG/DL (1.5-2.5); POTASSIUM 4.6 MEQ/L (3.5-5.1); SODIUM (NA) 136 MEQ/L (136-145)
[2017-02-08 07:15] LABS: ALKALINE PHOSPHATASE 60 U/L (45-117); TOTAL BILIRUBIN ADULT 0.9 MG/DL (0.2-1.0)
[2017-02-08 08:00] VITALS: BP 158/77; PULSE 78; RESP 20; TEMP 98.1; O2SAT 96
[2017-02-08] MEDS: AMIODARONE 200 MG TAB PO SCH (08:26)
[2017-02-08] MEDS: CALCIUM CARBONATE 1.25 GM (CA 500 MG) TAB PO SCH ×3 (08:26→17:00)
[2017-02-08] MEDS: POTASSIUM PHOSPHATE MONOBASIC 500 MG TAB PO SCH ×2 (08:26→20:49)
[2017-02-08] MEDS: guaiFENesin E.R. 600 MG TAB PO SCH ×2 (08:26→20:49)
[2017-02-08] MEDS: DOCUSATE SODIUM 50 MG/SENNA 8.6 MG TAB PO SCH ×2 (08:26→20:49)
[2017-02-08] MEDS: METOPROLOL TARTRATE 50 MG TAB PO SCH ×2 (08:26→20:49)
[2017-02-08] MEDS: ASPIRIN EC 81 MG TABEC PO SCH (08:26)
[2017-02-08] MEDS: QUEtiapine FUMARATE 25 MG TAB PO SCH ×2 (08:26→20:50)
[2017-02-08] MEDS: INSULIN DETEMIR 100 UNITS/ML VIAL SQ SCH ×2 (08:27→20:52)
[2017-02-08] MEDS: BISACODYL 10 MG SUPP RECTAL SCH (08:28)
--- NOTE | 2017-02-08 08:28 | RADRPT ---
EXAM DATE/TIME: 02/08/2017 07:11 [facility] COMPARISON: CT ABDOMEN & PELVIS W/O CONTRAST, January 28, 2017, 20:18. INDICATIONS : Evaluate liver. MEDICAL HISTORY : Stroke. Hypertension. Myocardial infarction. Missing teeth. Confusion. Headache. Numbness. Weakness. Atrial fibrillation. Nausea. Vomiting. Diabetes. Anxiety. Depression. Incontinence. SURGICAL HISTORY : Arm surgery. Throat surgery. ENCOUNTER: Initial ACUITY: 1 day PAIN SCORE: 2/10 LOCATION: Bilateral upper quadrant MEASUREMENTS: LIVER: 12.9 cm length COMMON DUCT: 4 mm RIGHT KIDNEY: 11.6 x 4.7 x 5.2 cm SPLEEN: 10.6 cm length FINDINGS: LIVER: Normal echotexture without focal lesion or ductal dilatation. COMMON DUCT: No intraluminal mass or stone visualized. GALLBLADDER: Contains no stones, demonstrates no wall thickening or pericholecystic fluid. PANCREAS: The visualized portions are within normal limits. RIGHT KIDNEY: No hydronephrosis, stone or mass. SPLEEN: There is an apparent perisplenic fluid collection and that measures at least 8 cm in size. There is a right pleural effusion. CONCLUSION: 1. Ultrasound suggests a left upper quadrant fluid collection which appears new relative to the prior CT. On up-to-date CT is suggested. 2. Right pleural effusion evident, not new. 3. Otherwise within normal limits. Scot Sung MD on February 08, 2017 at 8:20 Board Certified Radiologist. This report was verified electronically.
[2017-02-08] MEDS: SODIUM CHLORIDE 0.9% FLUSH 10 ML FLUSH IV FLUSH SCH ×2 (08:30→19:34)
[2017-02-08] MEDS: NYSTATIN 100,000 U/GM PWD 15 GM BTL TOPICAL SCH ×2 (08:32→20:52)
--- NOTE | 2017-02-08 09:35 | HHI.IDPN ---
Subjective Subjective Remarks Is a 56-year-old male with past medical history significant for chronic kidney disease baseline creatinine 1.8-2, type 2 diabetes, history of CVA with residual left patient is a 56-year-old male, admitted to the hospital complaining of generalized weakness and dizziness for about 1 week. He apparently lives in a intermediate and walks with a cane, and has left-sided weakness. There is mention that he had fallen a couple times due to the weakness. There is also mention that he was not having enough by mouth intake, as well as some diarrhea. He denies any abdominal pain, any nausea or vomiting. On initial presentation patient was found to be in atrial flutter with RVR. He also has significant acidosis, and has an elevated potassium and creatinine. Patient was seen by cardiology, and his echo showed normal EF. Patient also was seen by renal, and underwent emergency hemodialysis. His hemodynamics stabilized, and the hemodialysis has been stopped. He has good urine output. Patient has been refusing a lot of his treatment. His had some problem with nausea and vomiting. He has had on and off fevers which are low- grade, however in the last probably 4 days, his fevers have been more persistent. He is complaining of pain on the right side of his trunk. There is also mention that his left upper extremity is swollen. Patient has no central line. He has a condom catheter. Chest x-ray has shown a similar opacities bilaterally. Patient was started on antibiotics, and currently on AZT mycin, cefepime, and vancomycin. Infectious disease consultation has been requested to evaluate the patient. Notes reviewed Patient is out of ICU Temps ok Having eval for recurrent anemia Has no overt bleeding seen His last (+) BC 01/29 LIGIA negative for endocarditis BC (+) 01/22-01/29 BC 01/31, 02/01 negative CReatinine stable On nasal O2 BP ok Has thrombus in LUE as well as in his LIJ, and LSC Antibiotics Oxacillin Rifampin Lines PIV Past Medical History Chronic kidney disease Type 2 diabetes Hypertension Dyslipidemia Previous stroke, with residual L weakness Atrial fibrillation/flutter CAD History of PUD Past Surgical History Throat and arm surgery Allergies: Coded Allergies: No Known Allergies (Unverified , 01/07/17) Objective . Vital Signs Date Time Temp Pulse Resp B/P (MAP) Pulse Ox O2 Delivery O2 Flow Rate FiO2 02/08/17 08:20 Nasal Cannula 3.00 02/08/17 08:00 98.1 78 20 158/77 (104) 96 02/08/17 04:00 99.3 74 19 127/74 (91) 98 02/08/17 00:00 98.2 76 17 164/92 (116) 97 02/07/17 19:38 97 Nasal Cannula 3.00 02/07/17 15:51 98.7 74 20 169/95 100 02/07/17 15:33 98.6 75 19 143/91 100 02/07/17 15:22 73 20 143/91 100 02/07/17 14:00 78 22 143/81 (101) 100 02/07/17 13:23 98.4 78 20 156/89 02/07/17 13:00 74 25 163/102 (122) 99 02/07/17 12:00 98.4 73 20 143/96 (112) 100 02/07/17 11:33 97.8 74 25 151/84 100 02/07/17 11:30 75 20 151/84 (106) 98 02/07/17 11:00 71 19 149/89 (109) 96 02/07/17 10:30 73 21 144/83 (103) 96 02/07/17 10:00 73 17 145/80 (101) 97 . Laboratory Tests Test 02/07/17 04:00 02/08/17 05:57 White Blood Count 16.3 TH/MM3 14.8 TH/MM3 Red Blood Count 1.69 MIL/MM3 3.23 MIL/MM3 Hemoglobin 4.9 GM/DL 9.4 GM/DL Hematocrit 15.1 % 28.1 % Mean Corpuscular Volume 89.4 FL 87.0 FL Mean Corpuscular Hemoglobin 28.9 PG 29.2 PG Mean Corpuscular Hemoglobin Concent 32.3 % 33.6 % Red Cell Distribution Width 15.8 % 14.7 % Platelet Count 254 TH/MM3 224 TH/MM3 Mean Platelet Volume 8.3 FL 8.1 FL Neutrophils (%) (Auto) 79.0 % 79.6 % Lymphocytes (%) (Auto) 9.5 % 8.0 % Monocytes (%) (Auto) 9.1 % 9.8 % Eosinophils (%) (Auto) 1.9 % 2.2 % Basophils (%) (Auto) 0.5 % 0.4 % Neutrophils # (Auto) 12.9 TH/MM3 11.8 TH/MM3 Lymphocytes # (Auto) 1.5 TH/MM3 1.2 TH/MM3 Monocytes # (Auto) 1.5 TH/MM3 1.5 TH/MM3 Eosinophils # (Auto) 0.3 TH/MM3 0.3 TH/MM3 Basophils # (Auto) 0.1 TH/MM3 0.1 TH/MM3 CBC Comment DIFF FINAL DIFF FINAL Differential Comment Reticulocyte Count 2.3 % Absolute Reticulocyte Count 73.5 MIL/L Haptoglobin 131 MG/DL Laboratory Tests Test 02/07/17 04:00 02/08/17 05:57 Blood Urea Nitrogen 20 MG/DL 20 MG/DL Creatinine 1.70 MG/DL 1.72 MG/DL Random Glucose 137 MG/DL 134 MG/DL Total Protein 7.0 GM/DL 8.1 GM/DL Albumin 1.1 GM/DL 1.3 GM/DL Calcium Level 7.6 MG/DL 7.9 MG/DL Phosphorus Level 4.3 MG/DL 3.4 MG/DL Magnesium Level 1.4 MG/DL 1.5 MG/DL Alkaline Phosphatase 53 U/L 60 U/L Aspartate Amino Transf (AST/SGOT) 55 U/L 57 U/L Alanine Aminotransferase (ALT/SGPT) 9 U/L 8 U/L Total Bilirubin 0.5 MG/DL 0.9 MG/DL Sodium Level 135 MEQ/L 136 MEQ/L Potassium Level 5.2 MEQ/L 4.6 MEQ/L Chloride Level 107 MEQ/L 106 MEQ/L Carbon Dioxide Level 20.2 MEQ/L 24.6 MEQ/L Anion Gap 8 MEQ/L 5 MEQ/L Estimat Glomerular Filtration Rate 51 ML/MIN 50 ML/MIN Lactate Dehydrogenase 284 U/L Imaging Last Impressions Abdomen X-Ray 01/25/17 0000 Signed Impressions: Service Date/Time: Wednesday, January 25, 2017 14:33 - CONCLUSION: Nonspecific, nonobstructive bowel gas pattern. Scot Sung MD Upper Extremity Ultrasound 01/23/17 0000 Signed Impressions: Service Date/Time: Monday, January 23, 2017 17:45 - CONCLUSION: Thrombus identified within the internal jugular, subclavian, and the basilic veins. Jeyson Luciano MD Chest X-Ray 01/21/17 0000 Signed Impressions: Service Date/Time: Saturday, January 21, 2017 22:42 - CONCLUSION: New hazy opacity in both lungs with concern for ovarian edema and congestive heart failure. Jose Espinal MD Head CT 01/10/17 1257 Signed Impressions: Service Date/Time: Tuesday, January 10, 2017 13:32 - CONCLUSION: No acute disease. Jermaine Malone Jr., MD Renal Ultrasound 01/10/17 0000 Signed Impressions: Service Date/Time: Tuesday, January 10, 2017 17:01 - CONCLUSION: Normal examination. Jermaine Malone Jr., MD Physical Exam GENERAL: Awake and alert, not in respiratory distress. SKIN: Warm and dry. No generalized rash, no ecchymoses and no evidence of embolic lesions. HEAD: Atraumatic. Normocephalic. No temporal wasting, or tenderness. EYES: [place] conjunctiva. No petechia or hemorrhage. Pupils equal, round and reactive to light. Extraocular movements full and intact. No scleral icterus. No injection or drainage. EARS, NOSE AND THROAT: Nose without bleeding or purulent nasal discharge. No sinus tenderness. Moist mucosa NECK: Trachea midline. Supple and not tender, no meningeal signs. Previous vascath site looks ok, dry CARDIOVASCULAR: Tachycardic, irregular rate and rhythm. No murmurs, rubs or gallops heard RESPIRATORY: Clear to auscultation. Breath sounds equal bilaterally. No rales , wheezing or rhonchi, decreased at the bases ABDOMEN: Soft, Not tender, not distended. No guarding or rebound. Bowel sounds present and normoactive. No organomegaly. EXTREMITIES: min BLE edema, no cyanosis. LUE is swollen NEUROLOGICAL: Awake and alert. L side plegic PSYCHIATRIC: calm, cooperative this morning LINE: No evidence of infection Assessment & Plan Remarks IMPRESSION Sepsis with MSSA - had vascath placed 01/10, removed 01/15 - has DVT LUE including LIJ and LSC, and previously had vascath and suspicious for infected thrombophlebitis - has basilar opacities, ?fluid; not coughing or congested, less likely PNA - BC still (+) Renal failure, creatinine has improved and has good UO Previous CVA with left sided weakness Atrial fib with RVR Leukocytosis, stable PLAN Continue Oxacillin Continue Rifampin Follow C/S He will need 6 weeks IV Abx from date of last (+) BC - if no other new (+) BC, anticipated end date is Mar 11 Labs while on Abx: CBC, creat, CBC Follow CBC Monitor progress Will ask renal about venous access since he will need a long course of IV Abx Heme evaluating his anemia D/W Kimi Pal MD Feb 08, 2017 09:35
--- NOTE | 2017-02-08 11:28 | PD.ONC.PN ---
Subjective Subjective Remarks Afebrile overnight. Patient resting in bed in nad. NO overnight events per nurse. Objective Data Date Time Temp Pulse Resp B/P (MAP) Pulse Ox O2 Delivery O2 Flow Rate FiO2 02/08/17 08:20 Nasal Cannula 3.00 02/08/17 08:00 98.1 78 20 158/77 (104) 96 02/08/17 04:00 99.3 74 19 127/74 (91) 98 02/08/17 00:00 98.2 76 17 164/92 (116) 97 02/07/17 19:38 97 Nasal Cannula 3.00 02/07/17 15:51 98.7 74 20 169/95 100 02/07/17 15:33 98.6 75 19 143/91 100 02/07/17 15:22 73 20 143/91 100 02/07/17 14:00 78 22 143/81 (101) 100 02/07/17 13:23 98.4 78 20 156/89 02/07/17 13:00 74 25 163/102 (122) 99 02/07/17 12:00 98.4 73 20 143/96 (112) 100 02/07/17 11:33 97.8 74 25 151/84 100 02/07/17 11:30 75 20 151/84 (106) 98 02/08/17 02/08/17 02/08/17 07:00 15:00 23:00 Intake Total 550 ml Output Total 400 ml Balance 150 ml Result Diagram: 02/08/17 0557 02/08/17 0557 Laboratory Results Laboratory Tests Test 02/08/17 05:57 White Blood Count 14.8 TH/MM3 Red Blood Count 3.23 MIL/MM3 Hemoglobin 9.4 GM/DL Hematocrit 28.1 % Mean Corpuscular Volume 87.0 FL Mean Corpuscular Hemoglobin 29.2 PG Mean Corpuscular Hemoglobin Concent 33.6 % Red Cell Distribution Width 14.7 % Platelet Count 224 TH/MM3 Mean Platelet Volume 8.1 FL Neutrophils (%) (Auto) 79.6 % Lymphocytes (%) (Auto) 8.0 % Monocytes (%) (Auto) 9.8 % Eosinophils (%) (Auto) 2.2 % Basophils (%) (Auto) 0.4 % Neutrophils # (Auto) 11.8 TH/MM3 Lymphocytes # (Auto) 1.2 TH/MM3 Monocytes # (Auto) 1.5 TH/MM3 Eosinophils # (Auto) 0.3 TH/MM3 Basophils # (Auto) 0.1 TH/MM3 CBC Comment DIFF FINAL Differential Comment Reticulocyte Count 2.3 % Absolute Reticulocyte Count 73.5 MIL/L Haptoglobin 131 MG/DL Activated Partial Thromboplast Time 42.6 SEC Blood Urea Nitrogen 20 MG/DL Creatinine 1.72 MG/DL Random Glucose 134 MG/DL Total Protein 8.1 GM/DL Albumin 1.3 GM/DL Calcium Level 7.9 MG/DL Phosphorus Level 3.4 MG/DL Magnesium Level 1.5 MG/DL Alkaline Phosphatase 60 U/L Aspartate Amino Transf (AST/SGOT) 57 U/L Alanine Aminotransferase (ALT/SGPT) 8 U/L Lactate Dehydrogenase 284 U/L Total Bilirubin 0.9 MG/DL Sodium Level 136 MEQ/L Potassium Level 4.6 MEQ/L Chloride Level 106 MEQ/L Carbon Dioxide Level 24.6 MEQ/L Anion Gap 5 MEQ/L Estimat Glomerular Filtration Rate 50 ML/MIN Imaging Studies Last 24 hours Impressions Liver Ultrasound 02/08/17 0000 Signed Impressions: Service Date/Time: Wednesday, February 08, 2017 07:11 - CONCLUSION: 1. Ultrasound suggests a left upper quadrant fluid collection which appears new relative to the prior CT. On up-to-date CT is suggested. 2. Right pleural effusion evident , not new. 3. Otherwise within normal limits. Scot Sung MD Administered Medications Medications (Trade) Dose Ordered Sig/Mansi Route PRN Reason Start Time Stop Time Status Last Admin Dose Admin Acetaminophen (Tylenol) 650 mg Q6H PRN PO PAIN SCALE 1 TO 4 01/10/17 17:00 02/01/17 00:12 Atorvastatin Calcium (Lipitor) 80 mg HS PO 01/10/17 21:00 02/07/17 23:01 Aspirin (Ecotrin Ec) 81 mg DAILY PO 01/10/17 17:00 02/08/17 08:26 Sodium Chloride (NS Flush) 2 ml BID IV FLUSH 01/10/17 21:00 02/07/17 20:37 Chlorhexidine Gluconate (Chlorhexidine 2% Cloth) Taper DAILY@04 TOP 01/11/17 04:00 01/07/18 03:59 02/04/17 05:28 Senna/Docusate Sodium (Afia-Colace) 1 tab BID PO 01/10/17 21:00 02/08/17 08:26 Magnesium Hydroxide (Milk Of Magnesia Liq) 30 ml Q12H PRN PO Mild constipation 01/10/17 17:15 02/04/17 08:51 Lactulose (Lactulose Liq) 30 ml DAILY PRN PO SEVERE CONSITIPATION 01/10/17 17:15 02/04/17 08:51 Dexmedetomidine HCl 200 mcg/ Sodium Chloride 52 ml @ 5.46 mls/hr TITRATE PRN IV SEDATION 01/11/17 00:00 01/12/17 14:53 Haloperidol Lactate (Haldol Inj) 5 mg Q4H PRN IV agitation 01/12/17 17:00 02/07/17 19:36 Metoclopramide HCl (Reglan Inj) 5 mg Q8H IV PUSH 01/15/17 10:00 02/08/17 08:33 Hydralazine HCl (Apresoline Inj) 10 mg Q4H PRN IV PUSH SYS BP GREATER THAN 160 MMHG 01/15/17 10:00 02/07/17 13:10 Potassium Chloride 100 ml @ 50 mls/hr Q2H IV 01/15/17 10:00 Future Hold 01/16/17 06:11 Clonidine (Catapres-Tts 0.3 Mg Patch.7d) 1 patch Q7D T-DERMAL 01/16/17 10:00 02/06/17 09:10 Miscellaneous Information 1 Q7D T-DERMAL 01/16/17 10:00 02/06/17 09:10 Guaifenesin (Mucinex Er) 600 mg BID PO 01/16/17 21:00 02/08/17 08:26 Calcium Carbonate (Oscal) 500 mg TID PO 01/17/17 13:00 02/08/17 08:26 Potassium Phosphate (K-Phos) 500 mg Q12HR PO 01/17/17 14:00 02/08/17 08:26 Quetiapine Fumarate (SEROquel) 25 mg BID PO 01/17/17 21:00 02/08/17 08:26 Labetalol HCl (Trandate Inj) 10 mg Q4H PRN IV PUSH SBP>160, DBP>90 01/20/17 08:30 01/20/17 17:27 Insulin Detemir (Levemir Inj) 5 units Q12HR SQ 01/23/17 09:00 02/08/17 08:27 Hydromorphone HCl (Dilaudid Pf Inj) 0.5 mg Q4HR PRN IV PUSH SEE LABEL COMMENTS 01/23/17 14:45 02/07/17 23:00 Hydromorphone HCl (Dilaudid Pf Inj) 0.75 mg Q4HR PRN IV PUSH SEE LABEL COMMENTS 01/23/17 14:45 02/06/17 16:48 Heparin Sodium/ Dextrose 250 ml @ 18 mls/hr TITRATE PRN IV Coagulation Management 01/24/17 12:00 02/07/17 07:33 Insulin Human Regular (NovoLIN R SUPPLEMENTAL SCALE) 1 Q6HR SQ 01/24/17 18:00 02/05/17 00:41 Rifampin (Rifampin) 300 mg Q12H PO 01/28/17 14:00 02/08/17 04:45 Metoprolol Tartrate (Lopressor) 100 mg BID PO 01/29/17 21:00 02/08/17 08:26 Diltiazem HCl (Cardizem) 30 mg Q6HR PO 01/30/17 12:00 02/08/17 04:45 Oxacillin Sodium 2 gm/Sodium Chloride 100 ml @ 200 mls/hr Q4H IV 01/30/17 16:00 02/08/17 08:32 Sodium Chloride 1,000 ml @ 42 mls/hr [id number] IV 02/03/17 12:30 02/07/17 12:24 Nystatin (Mycostatin Powder) 1 applic Q12HR TOPICAL 02/03/17 21:00 02/08/17 08:32 Bisacodyl (Dulcolax Supp) 10 mg DAILY RECTAL 02/05/17 12:00 02/07/17 08:24 Amiodarone HCl (Cordarone) 400 mg DAILY PO 02/06/17 10:00 02/08/17 08:26 Objective Remarks GENERAL: Middle aged male supine in bed resting. SKIN: Warm and dry. HEAD: Normocephalic. EYES: No scleral icterus. NECK: Supple, trachea midline. CARDIOVASCULAR: +S1/S2 RESPIRATORY: anterior sifuentes clear. GASTROINTESTINAL: Abdomen soft, non-tender, nondistended. EXTREMITIES: No cyanosis NEUROLOGICAL: awake. mildly slurred speech. left sided paresis. Assessment/Plan Problem List: (1) Severe anemia ICD Codes: D64.9 - Anemia, unspecified Plan: --?GIB --On admission he was found to have a significant decrease in hemoglobin from 10.2 to 6.4. --has been transfused multiple units during this hospitalization --haptoglobin WNL, LDH mildly elevated, bilirubin WNL Ultrasound of the liver and spleen shows only LUQ fluid collection --no signs of overt bleeding. --rapidity which the hemoglobin drops argues against a bone marrow failure syndrome as the drop is quite brisk. (2) Deep venous thrombosis of left upper extremity ICD Codes: I82.622 - Acute embolism and thrombosis of deep veins of left upper extremity Plan: --on heparin --u/s LUE, 01/23 showed thrombus jugular, subclavian and basilic veins of left arm (3) Sepsis ICD Codes: A41.9 - Sepsis, unspecified organism Status: Acute Plan: on antibiotics. ID following. Assessment 56y/o male admitted with generalized weakness and dizziness. Hematology consulted for anemia. history of chronic kidney disease, previous CVA with residual left-sided weakness. --At baseline lives in a fpc and walks with a cane. Plan 1. monitor CBC 2. no transfusion needed today. 3. will obtain stool Hemoccult, ?GI bleeding, may need to consult GI if positive. Attending Statement The exam, history, and the medical decision-making described in the above note were completed with the assistance of the mid-level provider. I reviewed and agree with the findings presented. I attest that I had a [id number] encounter with the patient on the same day, and personally performed and documented my assessment and findings in the medical record. Hgb stable. No sign of hemolysis, LDH only midly elevated, haptoglobin NL, urine color not tea, liver spleen not enlarged, ACE neg. Noted new fluid collection RUQ and perisplenic. Check CT abd w/o contrast. Abdomen more distended, smooth firm. Problem Qualifiers (1) Deep venous thrombosis of left upper extremity: Qualified Codes: I82.622 - Acute embolism and thrombosis of deep veins of left upper extremity Lida Gonzalez Feb 08, 2017 11:28 Telma Fernandes MD Feb 08, 2017 14:26
--- NOTE | 2017-02-08 11:55 | PD.CONS ---
HPI History of Present Illness This is a 56 year old male with past medical history significant for chronic anemia, chronic kidney disease, type 2 diabetes, CVA with residual left hemiparesis, coronary artery disease, hypertension, atrial fibrillation, who presented to the emergency department on (01/10/17) with one week duration of generalized weakness and dizziness. He had ARF, metabolic acidosis, he had one session of HD with improvement of kidney function. He has DVT , on heparin. He has sepsis with MSSA, ID on the case, he continue to have (+) BC. He has pleural infusion on CT and US. GI is consulted for anemia. Patient was extremely incorporative during the interview, refused physical exam and refused to answer any questions. Therefore, HPI was obtained from nurse and EMR. According to nurse, no active bleeding noted. hematology on the case and work up to r/o hemolysis. on the , hgb was 6.3 , received 2 units of blood , hgb came up to 8.2, but 4 days later, went down to 4.9. Patient was seen by our services in August of this year for anemia, at that time, there was plans for EGD/colonoscopy but patient refused, according to our note, patient was last scoped 3 yrs ago. US showed collection of fluid in the abd, he has elevated AST , hepatitis panel negative. (Estelle Robles) PFSH Past Medical History Chronic kidney disease Type 2 diabetes Hypertension Dyslipidemia Previous stroke, with residual L weakness Atrial fibrillation/flutter CAD History of PUD . Past Surgical History Some form of throat surgery in 2016 at [facility] status post fall . (Estelle Robles) Coded Allergies: No Known Allergies (Unverified , 01/07/17) Medications Current Medications Medications (Trade) Dose Ordered Sig/Mansi Route Start Time Stop Time Status Last Admin (Tylenol) 650 mg Q6H PRN PO 01/10/17 17:00 02/01/17 00:12 (Proair Hfa Inh) 2 puff Q6H PRN INH 01/10/17 17:00 (Lipitor) 80 mg HS PO 01/10/17 21:00 02/07/17 23:01 (Nitrostat Sl) 0.4 mg Q3H PRN SL 01/10/17 17:00 (Ecotrin Ec) 81 mg DAILY PO 01/10/17 17:00 02/08/17 08:26 (NS Flush) 2 ml BID IV FLUSH 01/10/17 21:00 02/07/17 20:37 Miscellaneous Information 1 Q361D XX 01/10/17 17:15 (Chlorhexidine 2% Cloth) Taper DAILY@04 TOP 01/11/17 04:00 01/07/18 03:59 02/04/17 05:28 (Chlorhexidine 2% Cloth) 3 pack UNSCH PRN TOP 01/10/17 17:15 (Afia-Colace) 1 tab BID PO 01/10/17 21:00 02/08/17 08:26 (Milk Of Magnesia Liq) 30 ml Q12H PRN PO 01/10/17 17:15 02/04/17 08:51 (Senokot) 17.2 mg Q12H PRN PO 01/10/17 17:15 (Dulcolax Supp) 10 mg DAILY PRN RECTAL 01/10/17 17:15 (Lactulose Liq) 30 ml DAILY PRN PO 01/10/17 17:15 02/04/17 08:51 Dexmedetomidine HCl 200 mcg/ Sodium Chloride 52 ml @ 5.46 mls/hr TITRATE PRN IV 01/11/17 00:00 01/12/17 14:53 (Haldol Inj) 5 mg Q4H PRN IV 01/12/17 17:00 02/07/17 19:36 (Reglan Inj) 5 mg Q8H IV PUSH 01/15/17 10:00 02/08/17 08:33 (Apresoline Inj) 10 mg Q4H PRN IV PUSH 01/15/17 10:00 02/07/17 13:10 Potassium Chloride 100 ml @ 50 mls/hr Q2H IV 01/15/17 10:00 Future Hold 01/16/17 06:11 (Catapres-Tts 0.3 Mg Patch.7d) 1 patch Q7D T-DERMAL 01/16/17 10:00 02/06/17 09:10 Miscellaneous Information 1 Q7D T-DERMAL 01/16/17 10:00 02/06/17 09:10 (Mucinex Er) 600 mg BID PO 01/16/17 21:00 02/08/17 08:26 (Oscal) 500 mg TID PO 01/17/17 13:00 02/08/17 08:26 (K-Phos) 500 mg Q12HR PO 01/17/17 14:00 02/08/17 08:26 (SEROquel) 25 mg BID PO 01/17/17 21:00 02/08/17 08:26 (Trandate Inj) 10 mg Q4H PRN IV PUSH 01/20/17 08:30 01/20/17 17:27 (Levemir Inj) 5 units Q12HR SQ 01/23/17 09:00 02/08/17 08:27 (Dilaudid Pf Inj) 0.5 mg Q4HR PRN IV PUSH 01/23/17 14:45 02/07/17 23:00 (Dilaudid Pf Inj) 0.75 mg Q4HR PRN IV PUSH 01/23/17 14:45 02/06/17 16:48 Heparin Sodium/ Dextrose 250 ml @ 18 mls/hr TITRATE PRN IV 01/24/17 12:00 02/07/17 07:33 (D50w (Vial) Inj) 25 ml UNSCH PRN IV PUSH 01/24/17 16:00 (NovoLIN R SUPPLEMENTAL SCALE) 1 Q6HR SQ 01/24/17 18:00 02/05/17 00:41 (Rifampin) 300 mg Q12H PO 01/28/17 14:00 02/08/17 04:45 (Lopressor) 100 mg BID PO 01/29/17 21:00 02/08/17 08:26 (Cardizem) 30 mg Q6HR PO 01/30/17 12:00 02/08/17 04:45 Oxacillin Sodium 2 gm/Sodium Chloride 100 ml @ 200 mls/hr Q4H IV 01/30/17 16:00 02/08/17 08:32 Sodium Chloride 1,000 ml @ 42 mls/hr [id number] IV 02/03/17 12:30 02/07/17 12:24 (Mycostatin Powder) 1 applic Q12HR TOPICAL 02/03/17 21:00 02/08/17 08:32 (Dulcolax Supp) 10 mg DAILY RECTAL 02/05/17 12:00 02/07/17 08:24 (Cordarone) 400 mg DAILY PO 02/06/17 10:00 02/08/17 08:26 Family History Mother alive 81 with schizophrenia. Father history of diabetes, hypertension, renal disease. . Social History Not able to obtain, patient incorporative (Estelle Robles) Review of Systems ROS Not able to obtain, patient incorporative (Estelle Robles) GI Exam Vitals I&O Vital Signs Date Time Temp Pulse Resp B/P (MAP) Pulse Ox O2 Delivery O2 Flow Rate FiO2 02/08/17 08:20 Nasal Cannula 3.00 02/08/17 08:00 98.1 78 20 158/77 (104) 96 02/08/17 04:00 99.3 74 19 127/74 (91) 98 02/08/17 00:00 98.2 76 17 164/92 (116) 97 02/07/17 19:38 97 Nasal Cannula 3.00 02/07/17 15:51 98.7 74 20 169/95 100 02/07/17 15:33 98.6 75 19 143/91 100 02/07/17 15:22 73 20 143/91 100 02/07/17 14:00 78 22 143/81 (101) 100 02/07/17 13:23 98.4 78 20 156/89 02/07/17 13:00 74 25 163/102 (122) 99 02/07/17 12:00 98.4 73 20 143/96 (112) 100 02/07/17 11:33 97.8 74 25 151/84 100 02/07/17 11:30 75 20 151/84 (106) 98 I/O 02/07/17 02/07/17 02/07/17 02/08/17 02/08/17 02/08/17 07:00 15:00 23:00 07:00 15:00 23:00 Intake Total 941.5 ml 459 ml 2261 ml 550 ml Output Total 550 ml 451 ml 400 ml Balance 391.5 ml 459 ml 1810 ml 150 ml Intake Oral 240 ml 200 ml 0 ml IV Total 701.5 ml 29 ml 841 ml 550 ml Packed Cells 400 ml 800 ml Blood Product IV Normal Saline Flush 30 ml 420 ml Output Urine Total 550 ml 450 ml 400 ml Stool Total 1 ml Imaging Last Impressions Liver Ultrasound 02/08/17 0000 Signed Impressions: Service Date/Time: Wednesday, February 08, 2017 07:11 - CONCLUSION: 1. Ultrasound suggests a left upper quadrant fluid collection which appears new relative to the prior CT. On up-to-date CT is suggested. 2. Right pleural effusion evident , not new. 3. Otherwise within normal limits. Scot Sung MD Lower Extremity Ultrasound 02/04/17 0000 Signed Impressions: Service Date/Time: Saturday, February 04, 2017 07:41 - CONCLUSION: Normal examination. Jermaine Malone Jr., MD Abdomen/Pelvis CT 01/28/17 0000 Signed Impressions: Service Date/Time: Saturday, January 28, 2017 20:18 - CONCLUSION: 1. Bilateral pleural effusions and bibasilar infiltrates. 2. Cardiomegaly. 3. Subcutaneous edema. 4. Umbilical hernia. Jermaine Malone Jr., MD Abdomen X-Ray 01/25/17 0000 Signed Impressions: Service Date/Time: Wednesday, January 25, 2017 14:33 - CONCLUSION: Nonspecific, nonobstructive bowel gas pattern. Scot Sung MD Upper Extremity Ultrasound 01/23/17 0000 Signed Impressions: Service Date/Time: Monday, January 23, 2017 17:45 - CONCLUSION: Thrombus identified within the internal jugular, subclavian, and the basilic veins. Jeyson Luciano MD Chest X-Ray 01/21/17 0000 Signed Impressions: Service Date/Time: Saturday, January 21, 2017 22:42 - CONCLUSION: New hazy opacity in both lungs with concern for ovarian edema and congestive heart failure. Jose Espinal MD Head CT 01/10/17 1257 Signed Impressions: Service Date/Time: Tuesday, January 10, 2017 13:32 - CONCLUSION: No acute disease. Jermaine Malone Jr., MD Renal Ultrasound 01/10/17 0000 Signed Impressions: Service Date/Time: Tuesday, January 10, 2017 17:01 - CONCLUSION: Normal examination. Jermaine Malone Jr., MD Laboratory Test 02/08/17 05:57 White Blood Count 14.8 TH/MM3 Red Blood Count 3.23 MIL/MM3 Hemoglobin 9.4 GM/DL Hematocrit 28.1 % Mean Corpuscular Volume 87.0 FL Mean Corpuscular Hemoglobin 29.2 PG Mean Corpuscular Hemoglobin Concent 33.6 % Red Cell Distribution Width 14.7 % Platelet Count 224 TH/MM3 Mean Platelet Volume 8.1 FL Neutrophils (%) (Auto) 79.6 % Lymphocytes (%) (Auto) 8.0 % Monocytes (%) (Auto) 9.8 % Eosinophils (%) (Auto) 2.2 % Basophils (%) (Auto) 0.4 % Neutrophils # (Auto) 11.8 TH/MM3 Lymphocytes # (Auto) 1.2 TH/MM3 Monocytes # (Auto) 1.5 TH/MM3 Eosinophils # (Auto) 0.3 TH/MM3 Basophils # (Auto) 0.1 TH/MM3 CBC Comment DIFF FINAL Differential Comment Reticulocyte Count 2.3 % Absolute Reticulocyte Count 73.5 MIL/L Haptoglobin 131 MG/DL Activated Partial Thromboplast Time 42.6 SEC Blood Urea Nitrogen 20 MG/DL Creatinine 1.72 MG/DL Random Glucose 134 MG/DL Total Protein 8.1 GM/DL Albumin 1.3 GM/DL Calcium Level 7.9 MG/DL Phosphorus Level 3.4 MG/DL Magnesium Level 1.5 MG/DL Alkaline Phosphatase 60 U/L Aspartate Amino Transf (AST/SGOT) 57 U/L Alanine Aminotransferase (ALT/SGPT) 8 U/L Lactate Dehydrogenase 284 U/L Total Bilirubin 0.9 MG/DL Sodium Level 136 MEQ/L Potassium Level 4.6 MEQ/L Chloride Level 106 MEQ/L Carbon Dioxide Level 24.6 MEQ/L Anion Gap 5 MEQ/L Estimat Glomerular Filtration Rate 50 ML/MIN Date/Time Source Procedure Growth Status 02/01/17 06:12 Blood Peripheral Aerobic Blood Culture - Final NO GROWTH IN 5 DAYS Complete 02/01/17 06:12 Blood Peripheral Anaerobic Blood Culture - Final NO GROWTH IN 5 DAYS Complete 01/23/17 14:26 Urine Clean Catch Urine Culture - Final Staphylococcus Aureus Complete Physical Examination HEENT: normocephalic; atraumatic; CHEST: refused assessment , on o2 CARDIAC: refused assessment ABDOMEN: refused assessment EXTREMITIES: refused assessment SKIN: refused assessment ADVERTISING DESIGNER: alert (Estelle Robles) Assessment and Plan Plan - Chronic anemia- No active bleeding per nurse. Patient was extremely incorporative during the interview, refused physical exam and refused to answer any questions. on the , hgb was 6.3 , received 2 units of blood, hgb came up to 8.2, but 4 days later, went down to 4.9. Patient was seen by our services in August of this year for anemia, at that time, there was plans for EGD/ colonoscopy but patient refused, according to our note, patient was last scoped 3 yrs ago. US showed collection of fluid in the abd. hgb today is 9.4 - elevated AST, hepatitis panel negative. US and CT as above, likely congested liver, consider diagnostic paracentesis - CKI- He had ARF, metabolic acidosis, he had one session of HD with improvement of kidney function. - DVT , on heparin. - Sepsis- ID on the case, continue to have (+) BC - He has pleural infusion on CT and US. - chronic kidney disease, type 2 diabetes, CVA with residual left hemiparesis, coronary artery disease, hypertension, atrial fibrillation, per attending Plan: - Renal diet - Patient would benefit of EGD/colonoscopy but he is refusing any GI work up at this time - Monitor HH - Transfuse as needed - Supportive care - ID, hematology, cardiology on the case - Patient seen and examined by Dr. Dixon and myself and this note is written on his behalf (Estelle Robles) Physician Comments Patient seen and examined Agree with above Continue with current supportive care Monitor labs and transfuse as needed Not much to add at this point from a GI perspective as patient is refusing endoscopy At this point we will sign off but please reconsult if patient changes his mind or if any new symptoms (Samuel Dixon MD) Estelle Robles Feb 08, 2017 11:55 Samuel Dixon MD Feb 08, 2017 16:03
[2017-02-08 12:00] VITALS: BP 156/94; PULSE 75; RESP 18; TEMP 96.3; O2SAT 95
[2017-02-08] MEDS: SODIUM CHLOR 0.9% 1000 ML INJ 1,000 ML IV SCH (12:23)
--- NOTE | 2017-02-08 15:34 | HHI.PR ---
Subjective Remarks patient is somnolent. Denies any complaints. Objective Vitals Vital Signs Date Time Temp Pulse Resp B/P (MAP) Pulse Ox O2 Delivery O2 Flow Rate FiO2 02/08/17 12:00 96.3 75 18 156/94 (114) 95 02/08/17 08:20 Nasal Cannula 3.00 02/08/17 08:00 98.1 78 20 158/77 (104) 96 02/08/17 04:00 99.3 74 19 127/74 (91) 98 02/08/17 00:00 98.2 76 17 164/92 (116) 97 02/07/17 19:38 97 Nasal Cannula 3.00 02/07/17 15:51 98.7 74 20 169/95 100 I/O 02/07/17 02/07/17 02/07/17 02/08/17 02/08/17 02/08/17 07:00 15:00 23:00 07:00 15:00 23:00 Intake Total 941.5 ml 459 ml 2261 ml 550 ml Output Total 550 ml 451 ml 400 ml Balance 391.5 ml 459 ml 1810 ml 150 ml Intake Oral 240 ml 200 ml 0 ml IV Total 701.5 ml 29 ml 841 ml 550 ml Packed Cells 400 ml 800 ml Blood Product IV Normal Saline Flush 30 ml 420 ml Output Urine Total 550 ml 450 ml 400 ml Stool Total 1 ml Result Diagram: 02/08/17 0557 02/08/17 0557 Imaging Last Impressions Liver Ultrasound 02/08/17 0000 Signed Impressions: Service Date/Time: Wednesday, February 08, 2017 07:11 - CONCLUSION: 1. Ultrasound suggests a left upper quadrant fluid collection which appears new relative to the prior CT. On up-to-date CT is suggested. 2. Right pleural effusion evident , not new. 3. Otherwise within normal limits. Scot Sung MD Lower Extremity Ultrasound 02/04/17 0000 Signed Impressions: Service Date/Time: Saturday, February 04, 2017 07:41 - CONCLUSION: Normal examination. Jermaine Malone Jr., MD Abdomen/Pelvis CT 01/28/17 0000 Signed Impressions: Service Date/Time: Saturday, January 28, 2017 20:18 - CONCLUSION: 1. Bilateral pleural effusions and bibasilar infiltrates. 2. Cardiomegaly. 3. Subcutaneous edema. 4. Umbilical hernia. Jermaine Malone Jr., MD Abdomen X-Ray 01/25/17 0000 Signed Impressions: Service Date/Time: Wednesday, January 25, 2017 14:33 - CONCLUSION: Nonspecific, nonobstructive bowel gas pattern. Scot Sung MD Upper Extremity Ultrasound 01/23/17 0000 Signed Impressions: Service Date/Time: Monday, January 23, 2017 17:45 - CONCLUSION: Thrombus identified within the internal jugular, subclavian, and the basilic veins. Jeyson Luciano MD Chest X-Ray 01/21/17 0000 Signed Impressions: Service Date/Time: Saturday, January 21, 2017 22:42 - CONCLUSION: New hazy opacity in both lungs with concern for ovarian edema and congestive heart failure. Jose Espinal MD Head CT 01/10/17 1257 Signed Impressions: Service Date/Time: Tuesday, January 10, 2017 13:32 - CONCLUSION: No acute disease. Jermaine Malone Jr., MD Renal Ultrasound 01/10/17 0000 Signed Impressions: Service Date/Time: Tuesday, January 10, 2017 17:01 - CONCLUSION: Normal examination. Jermaine Malone Jr., MD Objective Remarks GENERAL: Patient seems confused and sleepy when interviewed SKIN: Warm and dry. HEAD: Atraumatic. Normocephalic. EYES: Pupils equal and round. No scleral icterus. No injection or drainage. EOMI ENT: No nasal bleeding or discharge. Mucous membranes pink and moist. TONGUE IS MIDLINE NECK: Trachea midline. No JVD. SUPPLE CARDIOVASCULAR: IRRegular rate and rhythm. S1, S2 NO S3 OR S4 RESPIRATORY: No accessory muscle use. Clear to auscultation. Breath sounds equal bilaterally. GASTROINTESTINAL: Abdomen soft, non-tender, nondistended. Hepatic and splenic margins not palpable. MUSCULOSKELETAL: Extremities without clubbing, cyanosis, or edema. No obvious deformities. NEUROLOGICAL: Awake and alert. No obvious cranial nerve deficits. Motor grossly within normal limits. Five out of 5 muscle strength in the arms and legs ON RIGHT 4/4 ON LEFT SIDE. Normal speech. PSYCHIATRIC: Appropriate mood and affect; insight and judgment normal.SOME CONFUSION Procedures LIGIA Medications and IVs Current Medications Medications (Trade) Dose Ordered Sig/Mansi Route Start Time Stop Time Status Last Admin (Tylenol) 650 mg Q6H PRN PO 01/10/17 17:00 02/01/17 00:12 (Proair Hfa Inh) 2 puff Q6H PRN INH 01/10/17 17:00 (Lipitor) 80 mg HS PO 01/10/17 21:00 02/07/17 23:01 (Nitrostat Sl) 0.4 mg Q3H PRN SL 01/10/17 17:00 (Ecotrin Ec) 81 mg DAILY PO 01/10/17 17:00 02/08/17 08:26 (NS Flush) 2 ml BID IV FLUSH 01/10/17 21:00 02/07/17 20:37 Miscellaneous Information 1 Q361D XX 01/10/17 17:15 (Chlorhexidine 2% Cloth) Taper DAILY@04 TOP 01/11/17 04:00 01/07/18 03:59 02/04/17 05:28 (Chlorhexidine 2% Cloth) 3 pack UNSCH PRN TOP 01/10/17 17:15 (Afia-Colace) 1 tab BID PO 01/10/17 21:00 02/08/17 08:26 (Milk Of Magnesia Liq) 30 ml Q12H PRN PO 01/10/17 17:15 02/04/17 08:51 (Senokot) 17.2 mg Q12H PRN PO 01/10/17 17:15 (Dulcolax Supp) 10 mg DAILY PRN RECTAL 01/10/17 17:15 (Lactulose Liq) 30 ml DAILY PRN PO 01/10/17 17:15 02/04/17 08:51 Dexmedetomidine HCl 200 mcg/ Sodium Chloride 52 ml @ 5.46 mls/hr TITRATE PRN IV 01/11/17 00:00 01/12/17 14:53 (Haldol Inj) 5 mg Q4H PRN IV 01/12/17 17:00 02/07/17 19:36 (Reglan Inj) 5 mg Q8H IV PUSH 01/15/17 10:00 02/08/17 08:33 (Apresoline Inj) 10 mg Q4H PRN IV PUSH 01/15/17 10:00 02/07/17 13:10 Potassium Chloride 100 ml @ 50 mls/hr Q2H IV 01/15/17 10:00 Future Hold 10/27/17 06:11 (Catapres-Tts 0.3 Mg Patch.7d) 1 patch Q7D T-DERMAL 01/16/17 10:00 02/06/17 09:10 Miscellaneous Information 1 Q7D T-DERMAL 01/16/17 10:00 02/06/17 09:10 (Mucinex Er) 600 mg BID PO 01/16/17 21:00 02/08/17 08:26 (Oscal) 500 mg TID PO 01/17/17 13:00 02/08/17 12:16 (K-Phos) 500 mg Q12HR PO 01/17/17 14:00 02/08/17 08:26 (SEROquel) 25 mg BID PO 01/17/17 21:00 02/08/17 08:26 (Trandate Inj) 10 mg Q4H PRN IV PUSH 01/20/17 08:30 01/20/17 17:27 (Levemir Inj) 5 units Q12HR SQ 01/23/17 09:00 02/08/17 08:27 (Dilaudid Pf Inj) 0.5 mg Q4HR PRN IV PUSH 01/23/17 14:45 02/07/17 23:00 (Dilaudid Pf Inj) 0.75 mg Q4HR PRN IV PUSH 01/23/17 14:45 02/06/17 16:48 Heparin Sodium/ Dextrose 250 ml @ 18 mls/hr TITRATE PRN IV 01/24/17 12:00 02/07/17 07:33 (D50w (Vial) Inj) 25 ml UNSCH PRN IV PUSH 01/24/17 16:00 (NovoLIN R SUPPLEMENTAL SCALE) 1 Q6HR SQ 01/24/17 18:00 02/05/17 00:41 (Rifampin) 300 mg Q12H PO 01/28/17 14:00 02/08/17 12:16 (Lopressor) 100 mg BID PO 01/29/17 21:00 02/08/17 08:26 (Cardizem) 30 mg Q6HR PO 01/30/17 12:00 02/08/17 12:16 Oxacillin Sodium 2 gm/Sodium Chloride 100 ml @ 200 mls/hr Q4H IV 01/30/17 16:00 02/08/17 12:17 Sodium Chloride 1,000 ml @ 42 mls/hr [id number] IV 02/03/17 12:30 02/08/17 12:23 (Mycostatin Powder) 1 applic Q12HR TOPICAL 02/03/17 21:00 02/08/17 08:32 (Dulcolax Supp) 10 mg DAILY RECTAL 02/05/17 12:00 02/07/17 08:24 (Cordarone) 400 mg DAILY PO 02/06/17 10:00 02/08/17 08:26 A/P Problem List: (1) Acute on chronic kidney failure ICD Code: N17.9 - Acute kidney failure, unspecified; N18.9 - Chronic kidney disease, unspecified (2) Combined metabolic and respiratory acidosis (3) Acute metabolic encephalopathy ICD Code: G93.41 - Metabolic encephalopathy (4) NSTEMI (non-ST elevated myocardial infarction) ICD Code: I21.4 - Non-ST elevation (NSTEMI) myocardial infarction (5) Hyperkalemia ICD Code: E87.5 - Hyperkalemia Status: Acute (6) Metabolic acidemia ICD Code: E87.2 - Acidosis (7) History of CVA (cerebrovascular accident) ICD Code: Z86.73 - Personal history of transient ischemic attack (TIA), and cerebral infarction without residual deficits Status: Chronic (8) Diabetes ICD Code: E11.9 - Type 2 diabetes mellitus without complications Status: Acute (9) HTN (hypertension) ICD Code: I10 - Essential (primary) hypertension Status: Chronic Assessment and Plan 56-year-old male admitted secondary to bacteremia, fever, A. fib RVR, left arm DVT, encephalopathy. Labs reviewed. Hemoglobin level dropped. 2 units packed red blood cells transfused 02/01/17. Calcium level is low and supplementation provided. Continue to monitor renal function and white blood cell count. Labs ordered for further monitoring Severe Anemia The patient is status post transfusion of a total of 9 units of packed blood cells. Hematology has been consulted for evaluation of hemolytic anemia, however patient has haptoglobin and reticulocyte count within normal limits, bilirubin within normal limits and LDH mildly elevated. Ultrasound the liver shows left upper quadrant fluid collection. I ordered GI consultations and stool for Hemoccult blood. Appreciate GI recommendations. The patient is refusing EGD for/colonoscopy. However I believe that the patient at this point is not capable of making his medical decisions. Consult psychiatry. Acute Metabolic Encephalopathy Agitated Delirium History of Previous CVA with left hemiparesis Delirium The patient seems to be confused - check head CT Last ammonia level checked on 02/01 normal. I believe the patient does not have capacity to make medical decisions at this time. Will consult psychiatry. Severe combined Metabolic and respiratory acidosis Resolved Continue bronchodilators Continue incentive spirometry Continue mucolytic A flutter/fibrillation with RVR Elevated troponin Coronary artery disease By mouth Cardizem continued-SWITCH OFF IV Continue metoprolol Cardiology following IV heparin STARTED ON AMIODARONE DRIP 02-05 SWITCHED TO PO AMIODARONE 400MG PO DAILY Left upper extremity DVT Continue IV heparin Follow clinically Diabetes mellitus type 2 Blood sugar seems to be stable. Continue SSI with insulin NovoLog. Diabetic diet. Sepsis Resolved MSSA bacteremia - had vascath placed 01/10, removed 01/15 - has DVT LUE including LIJ and LSC, and previously had vascath and suspicious for infected thrombophlebitis - has basilar opacities, ?fluid; not coughing or congested, less likely PNA - BC still (+) - Negative LIGIA Continue Oxacillin Continue Rifampin Follow C/S He will need 6 weeks IV Abx from date of last (+) BC - if no other new (+) BC, anticipated end date is Mar 11 Labs while on Abx: CBC, creat, CBC Acute kidney injury The patient has CK V and developed a GI Patient also had metabolic acidosis and hyperkalemia which have resolved. Status post one session of hemodialysis and acute renal failure resolved. AKA likely due to ATN which is resolving. Creatinine 1.7, better with nutrition. Continue to monitor BUN/creatinine and monitor strict I's and O's, would nephrotoxins. Transaminitis Left upper quadrant fluid collection CT abdomen and pelvis ordered by hematology/oncology. DVT prophylaxis IV heparin Problem Qualifiers (1) Diabetes: (2) HTN (hypertension): Qualified Codes: I10 - Essential (primary) hypertension Jason De La Vega MD Feb 08, 2017 15:34
[2017-02-08 16:00] VITALS: BP 165/84; PULSE 74; RESP 22; TEMP 100.1; O2SAT 95
[2017-02-08] MEDS ORDERED: DIATRIZOATE MEGLUM/DIATRIZOATE SOD 9 ML CUP PO ONE (18:30)
[2017-02-08 20:00] VITALS: BP 162/94; PULSE 75; RESP 17; TEMP 100.1; O2SAT 94
[2017-02-08] MEDS: ATORVASTATIN 80 MG TAB PO SCH (20:49)
--- NOTE | 2017-02-08 22:48 | RADRPT ---
EXAM DATE/TIME: 02/08/2017 22:32 [facility] COMPARISON: CT BRAIN W/O CONTRAST, January 10, 2017, 13:32. INDICATIONS : Altered mental status. RADIATION DOSE: 51.17 CTDIvol (mGy) MEDICAL HISTORY : Cardiovascular disease. Cerebrovascular disease. Diabetes mellitus type 2. SURGICAL HISTORY : None. ENCOUNTER: Initial ACUITY: 1 day PAIN SCALE: 0/10 LOCATION: cranial TECHNIQUE: Multiple contiguous axial images were obtained of the head. Using automated exposure control and adj ustment of the mA and/or kV according to patient size, radiation dose was kept as low as reasonably a chievable to obtain optimal diagnostic quality images. DICOM format image data is available electro nically for review and comparison. FINDINGS: CEREBRUM: Old right basal ganglia insult and old right thalamic insult again seen. No evidence of acute intracr anial hemorrhage or extra-axial fluid collection. No mass effect or midline shift. Bailey matter-white matter differentiation within normal limits. POSTERIOR FOSSA: The cerebellum and brainstem are intact. The 4th ventricle is midline. The cerebellopontine angle i s unremarkable. EXTRACRANIAL: The visualized portion of the orbits is intact. SKULL: The calvaria is intact. No evidence of skull fracture. CONCLUSION: Old right sided infarcts. No acute intracranial findings. Frederic Bermudez MD on February 08, 2017 at 22:44 Board Certified Radiologist. This report was verified electronically.
--- NOTE | 2017-02-08 22:56 | RADRPT ---
EXAM DATE/TIME: 02/08/2017 22:27 [facility] COMPARISON: CT ABDOMEN & PELVIS W/O CONTRAST, January 28, 2017, 20:18. INDICATIONS : Possible hematoma. Decrease in hemoglobin. ORAL CONTRAST: Partial prescribed oral contrast ingested. RADIATION DOSE: 20.41 CTDIvol (mGy) MEDICAL HISTORY : Cerebrovascular disease. Cardiovascular disease Hypertension.Diabetes. SURGICAL HISTORY : None. ENCOUNTER: Initial ACUITY: 1 day PAIN SCALE: 0/10 LOCATION: abdomen TECHNIQUE: Volumetric scanning of the abdomen and pelvis was performed. Using automated exposure control and ad justment of the mA and/or kV according to patient size, radiation dose was kept as low as reasonably achievable to obtain optimal diagnostic quality images. DICOM format image data is available electro nically for review and comparison. FINDINGS: LOWER LUNGS: Moderate size right pleural effusion. Small left pleural effusion. Bilateral dependent parenchymal dede ng opacity indicating consolidation or atelectasis. LIVER: Homogeneous density without lesion. There is no dilation of the biliary tree. No calcified gallston es. SPLEEN: Normal size without lesion. PANCREAS: Within normal limits. KIDNEYS: Normal in size and shape. There is no mass, stone, or hydronephrosis. ADRENAL GLANDS: Within normal limits. VASCULAR: There is no aortic aneurysm. BOWEL/MESENTERY: No evidence of bowel dilatation. No free air or free fluid. Appendix not identified. ABDOMINAL WALL: Diffuse prominent superficial soft tissue edema. RETROPERITONEUM: Bilateral abnormalities of the iliopsoas muscle, new when compared to the prior study. Abnormalities are mixed heterogeneous hyperdensity and hypodensity resulting in diffuse enlargement of the iliopsoa s muscles. Findings likely represent ileus psoas hematomas. Abnormality measures 5.8 x 4.6 cm in grea test axial dimension on the left and 5.9 x 4.9 cm in greatest dimension on the right. BLADDER: No wall thickening or mass. REPRODUCTIVE: Within normal limits. INGUINAL: There is no lymphadenopathy or hernia. MUSCULOSKELETAL: Within normal limits for patient age. CONCLUSION: 1. New bilateral iliopsoas abnormalities likely representing iliopsoas hematomas. 2. Severe abdominal wall edema diffusely (anasarca). 3. Bilateral pleural effusions and lower lobe atelectasis versus consolidation. Frederic Bermudez MD on February 08, 2017 at 22:47 Board Certified Radiologist. This report was verified electronically.
[2017-02-09] VITALS: BP 147/81; PULSE 72; RESP 17; TEMP 98.9; O2SAT 94
[2017-02-09] MEDS: DILTIAZEM HCL 30 MG TAB PO SCH ×6 (00:50→23:53)
[2017-02-09] MEDS: METOCLOPRAMIDE HCL 10 MG/2 ML VIAL IV PUSH SCH ×3 (00:51→16:45)
[2017-02-09] MEDS: RIFAMPIN 150 MG CAP PO SCH ×3 (00:51→12:49)
[2017-02-09 01:13] LABS: AUTOMATED NEUTROPHIL # 12.5 TH/MM3 (1.8-7.7); BASOPHIL # 0.1 TH/MM3 (0-0.2); BASOPHIL % 0.5 % (0.0-2.0); EOSINOPHIL # 0.3 TH/MM3 (0-0.4); EOSINOPHIL % 1.8 % (0.0-4.0); HEMATOCRIT 27.7 % (39.0-51.0); HEMO FLAGS DIFF FINAL; LYMPHOCYTE # 1.4 TH/MM3 (1.0-4.8); MEAN CELL VOLUME 87.9 FL (80.0-100.0); MEAN CORPUSCULAR HEMOGLOBIN 29.7 PG (27.0-34.0); MEAN CORPUSCULAR HGB CONC 33.7 % (32.0-36.0); MONO % 9.3 % (0.0-8.0); NEUT % 79.4 % (16.0-70.0); PLATELET COUNT 208 TH/MM3 (150-450); RED BLOOD COUNT 3.15 MIL/MM3 (4.50-5.90); RED CELL DISTRIBUTION WIDTH 15.2 % (11.6-17.2); WHITE BLOOD COUNT 15.8 TH/MM3 (4.0-11.0)
[2017-02-09 01:24] LABS: APTT (PATIENT) 44.1 SEC (24.3-30.1)
[2017-02-09 01:27] LABS: ALT (GPT) 10 U/L (12-78); ANION GAP 9 MEQ/L (5-15); AST (GOT) 54 U/L (15-37); BICARBONATE 21.8 MEQ/L (21.0-32.0); BLOOD UREA NITROGEN 19 MG/DL (7-18); CHLORIDE 106 MEQ/L (98-107); GLOMERULAR FILTRATION RATE 52 ML/MIN (>89); MAGNESIUM 1.4 MG/DL (1.5-2.5); POTASSIUM 4.6 MEQ/L (3.5-5.1); SODIUM (NA) 137 MEQ/L (136-145)
[2017-02-09 01:30] LABS: ALKALINE PHOSPHATASE 68 U/L (45-117); LDH SERUM 247 U/L (87-241); TOTAL BILIRUBIN ADULT 0.6 MG/DL (0.2-1.0)
[2017-02-09 04:00] VITALS: BP 142/76; PULSE 76; RESP 18; TEMP 99.8; O2SAT 95
[2017-02-09] MEDS: CHLORHEXIDINE GLUCONATE 2 % 1 PACK (2 CLOTHS) TOP SCH ×2 (04:00→19:51)
[2017-02-09] MEDS: OXACILLIN INJ 2 GM in SODIUM CHLORIDE 0.9% INJ 100 ML IV SCH ×6 (04:00→23:54)
[2017-02-09] MEDS: INSULIN NovoLIN REGULAR SUPPLEMENTAL SCALE SQ SCH ×5 (06:00→23:54)
[2017-02-09 08:00] VITALS: BP 125/81; PULSE 89; RESP 18; TEMP 100.5; O2SAT 98
[2017-02-09] MEDS: POTASSIUM PHOSPHATE MONOBASIC 500 MG TAB PO SCH ×2 (08:38→21:06)
[2017-02-09] MEDS: AMIODARONE 200 MG TAB PO SCH (08:39)
[2017-02-09] MEDS: METOPROLOL TARTRATE 50 MG TAB PO SCH ×2 (08:39→21:04)
[2017-02-09] MEDS: CALCIUM CARBONATE 1.25 GM (CA 500 MG) TAB PO SCH ×4 (08:39→16:45)
[2017-02-09] MEDS: guaiFENesin E.R. 600 MG TAB PO SCH ×2 (08:39→21:06)
[2017-02-09] MEDS: ASPIRIN EC 81 MG TABEC PO SCH (08:39)
[2017-02-09] MEDS: BISACODYL 10 MG SUPP RECTAL SCH (08:40)
[2017-02-09] MEDS: NYSTATIN 100,000 U/GM PWD 15 GM BTL TOPICAL SCH ×2 (08:40→21:07)
[2017-02-09] MEDS: DOCUSATE SODIUM 50 MG/SENNA 8.6 MG TAB PO SCH ×2 (08:40→21:06)
[2017-02-09] MEDS: QUEtiapine FUMARATE 25 MG TAB PO SCH ×2 (08:40→21:03)
[2017-02-09] MEDS: BUMETANIDE INJ 1 MG/4 ML VIAL IV PUSH SCH ×2 (08:41→16:45)
[2017-02-09] MEDS: INSULIN DETEMIR 100 UNITS/ML VIAL SQ SCH ×2 (08:41→21:05)
[2017-02-09] MEDS: SODIUM CHLORIDE 0.9% FLUSH 10 ML FLUSH IV FLUSH SCH ×2 (08:41→21:06)
--- NOTE | 2017-02-09 09:48 | HHI.PYPN ---
Subjective Remarks Patient was seen today for psychiatric reevaluation, memory medical team has started valuation of decision-making capacity to refuse medications and medical procedures. I have discussed the case with Dr. Araiza and also with nursing charge. Reviewed documentation. On psychiatric evaluation today the patient is alert, he immediately recognized me from previous encounters, but different than my prior encounter with the patient today he is talkative and cooperative. Patient reports that he feels much better, he was able to say that medical team has found blocking his stools and he needs a colonoscopy. Patient states that he is willing to follow medical recommendations and have the procedures "because I want to get better, I know that they're doing the best for me". She is oriented 3, his a little hypoactive and incoherent at times, he can answer most of my questions without problems. He denies suicidal and homicidal ideation, he denies visual and auditory hallucinations. Review of Systems Except as stated in HPI: all other systems reviewed are Neg Mental Status Examination Appearance: Appropriate Consciousness: Alert Orientation: x4 Motor Activity: Normal gait Speech: Hesitant, Slow Language: Adequate Fund of Knowledge: Adequate Memory: Unremarkable Mood: Appropriate Affect: Blunt Thought Process & Associations: Intact Thought Content: Appropriate Hallucination Type: None Delusion Type: None Suicidal Ideation: No Suicidal Plan: No Suicidal Intention: No Homicidal Ideation: No Homicidal Plan: No Homicidal Intention: No Insight: Adequate Judgment: Adequate Results Labs Test 02/08/17 18:35 02/09/17 00:53 Ammonia 22 MCMOL/L White Blood Count 15.8 TH/MM3 Red Blood Count 3.15 MIL/MM3 Hemoglobin 9.3 GM/DL Hematocrit 27.7 % Mean Corpuscular Volume 87.9 FL Mean Corpuscular Hemoglobin 29.7 PG Mean Corpuscular Hemoglobin Concent 33.7 % Red Cell Distribution Width 15.2 % Platelet Count 208 TH/MM3 Mean Platelet Volume 8.3 FL Neutrophils (%) (Auto) 79.4 % Lymphocytes (%) (Auto) 9.0 % Monocytes (%) (Auto) 9.3 % Eosinophils (%) (Auto) 1.8 % Basophils (%) (Auto) 0.5 % Neutrophils # (Auto) 12.5 TH/MM3 Lymphocytes # (Auto) 1.4 TH/MM3 Monocytes # (Auto) 1.5 TH/MM3 Eosinophils # (Auto) 0.3 TH/MM3 Basophils # (Auto) 0.1 TH/MM3 CBC Comment DIFF FINAL Differential Comment Activated Partial Thromboplast Time 44.1 SEC Blood Urea Nitrogen 19 MG/DL Creatinine 1.66 MG/DL Random Glucose 88 MG/DL Total Protein 7.8 GM/DL Albumin 1.2 GM/DL Calcium Level 8.1 MG/DL Phosphorus Level 3.8 MG/DL Magnesium Level 1.4 MG/DL Alkaline Phosphatase 68 U/L Aspartate Amino Transf (AST/SGOT) 54 U/L Alanine Aminotransferase (ALT/SGPT) 10 U/L Lactate Dehydrogenase 247 U/L Total Bilirubin 0.6 MG/DL Sodium Level 137 MEQ/L Potassium Level 4.6 MEQ/L Chloride Level 106 MEQ/L Carbon Dioxide Level 21.8 MEQ/L Anion Gap 9 MEQ/L Estimat Glomerular Filtration Rate 52 ML/MIN Date/Time Source Procedure Growth Status 02/01/17 06:12 Blood Peripheral Aerobic Blood Culture - Final NO GROWTH IN 5 DAYS Complete 02/01/17 06:12 Blood Peripheral Anaerobic Blood Culture - Final NO GROWTH IN 5 DAYS Complete 01/23/17 14:26 Urine Clean Catch Urine Culture - Final Staphylococcus Aureus Complete Vitals/IOs Vital Signs Date Time Temp Pulse Resp B/P (MAP) Pulse Ox O2 Delivery O2 Flow Rate FiO2 02/09/17 09:04 Nasal Cannula 3.00 02/09/17 08:00 100.5 89 18 125/81 (96) 98 02/06/17 07:00 21 Intake and Output 02/09/17 02/09/17 02/09/17 07:59 15:59 23:59 Intake Total 491 ml Output Total 850 ml Balance -359 ml Assessment & Plan Problem List: (1) Delirium due to another medical condition ICD Codes: F05 - Delirium due to known physiological condition Assessment & Plan: Patient was seen today for psychiatric reevaluation, patient is alert, oriented 3. Able to verbalize a fair understanding and appreciation of his current medical problems. Patient verbalized that he wants to continue medical recommendations, treatment and go for colonoscopy. Patient doesn't seem to remember that he has refused procedures in the past. I guess that due to his level of fluctuation of consciousness related with metabolic encephalopathy, decision-making capacity in the patient can fluctuation, but at this moment the patient has full decision-making capacity participate in medical treatment and provide consent for colonoscopy. I have discussed this case with Dr. Araiza. Continue Seroquel 25 mg twice a day for delirium. Assessment & Plan Estimated LOS: days Justification for Cont. Inpt. Patient does not meet criteria for involuntary psychiatric admission at this moment. Maurice Cardenas MD Feb 09, 2017 09:48
--- NOTE | 2017-02-09 10:48 | PD.CONS ---
cc: Israel Richard MD HPI Service General Surgery Consult Requested By Rachel DEUTSCH Reason for Consult Evaluate bilateral iliopsoas hematomas; on anticoagulation Primary Care Physician Indiana Frey MD History of Present Illness This is a 56 year old male with past medical history of chronic kidney disease, type 2 diabetes mellitus, CVA with residual left sided hemiparesis, coronary artery disease, hypertension, and atrial fibulation. He has was originally admitted for generalized weakness and frequent falls at home. He has had a prolonged hospitalization. The patient was found to have a LEFT upper extremity DVT and started on a heparin infusion. The patient continued to have a decreasing hemoglobin and a hematology consult was obtained for anemia. A CT abdomen/pelvis was obtained which showed a new bilateral iliopsoas hematoma. A General Surgery consultation has been requested. Review of Systems Constitutional: COMPLAINS OF: Fatigue, DENIES: Change in appetite Endocrine: DENIES: Polydipsia, Polyuria, Polyphagia Eyes: DENIES: Diplopia Ears, nose, mouth, throat: DENIES: Hearing loss Respiratory: DENIES: Cough Cardiovascular: DENIES: Palpitations Gastrointestinal: DENIES: Abdominal pain, Nausea, Vomiting Genitourinary: DENIES: Urgency Musculoskeletal: DENIES: Joint pain, Muscle aches Integumentary: DENIES: Abnormal pigmentation Hematologic/lymphatic: DENIES: Bruising Immunologic/allergic: DENIES: Eczema Neurologic: DENIES: Headache, Localized weakness Psychiatric: DENIES: Mood changes, Depression, Hallucinations Past Family Social History Past Medical History Chronic renal failure Type 2 Diabetes Mellitus CVA with LEFT sided residual hemiparesis CAD HTN Atrial fibulation Past Surgical History None Reported Medications List is extensive but please note the patient is on a heparin infusion Allergies: Coded Allergies: No Known Allergies (Unverified , 01/07/17) Active Ordered Medications Current Medications Medications (Trade) Dose Ordered Sig/Mansi Route Start Time Stop Time Status Last Admin (Tylenol) 650 mg Q6H PRN PO 01/10/17 17:00 02/01/17 00:12 (Proair Hfa Inh) 2 puff Q6H PRN INH 01/10/17 17:00 (Lipitor) 80 mg HS PO 01/10/17 21:00 02/07/17 23:01 (Nitrostat Sl) 0.4 mg Q3H PRN SL 01/10/17 17:00 (Ecotrin Ec) 81 mg DAILY PO 01/10/17 17:00 02/09/17 08:39 (NS Flush) 2 ml BID IV FLUSH 01/10/17 21:00 02/07/17 20:37 Miscellaneous Information 1 Q361D XX 01/10/17 17:15 (Chlorhexidine 2% Cloth) Taper DAILY@04 TOP 01/11/17 04:00 01/07/18 03:59 02/04/17 05:28 (Chlorhexidine 2% Cloth) 3 pack UNSCH PRN TOP 01/10/17 17:15 (Afia-Colace) 1 tab BID PO 01/10/17 21:00 02/09/17 08:40 (Milk Of Magnesia Liq) 30 ml Q12H PRN PO 01/10/17 17:15 02/04/17 08:51 (Senokot) 17.2 mg Q12H PRN PO 01/10/17 17:15 (Dulcolax Supp) 10 mg DAILY PRN RECTAL 01/10/17 17:15 (Lactulose Liq) 30 ml DAILY PRN PO 01/10/17 17:15 02/04/17 08:51 Dexmedetomidine HCl 200 mcg/ Sodium Chloride 52 ml @ 5.46 mls/hr TITRATE PRN IV 01/11/17 00:00 01/12/17 14:53 (Haldol Inj) 5 mg Q4H PRN IV 01/12/17 17:00 02/07/17 19:36 (Reglan Inj) 5 mg Q8H IV PUSH 01/15/17 10:00 02/09/17 08:39 (Apresoline Inj) 10 mg Q4H PRN IV PUSH 01/15/17 10:00 02/07/17 13:10 Potassium Chloride 100 ml @ 50 mls/hr Q2H IV 01/15/17 10:00 Future Hold 01/16/17 06:11 (Catapres-Tts 0.3 Mg Patch.7d) 1 patch Q7D T-DERMAL 01/16/17 10:00 02/06/17 09:10 Miscellaneous Information 1 Q7D T-DERMAL 01/16/17 10:00 02/06/17 09:10 (Mucinex Er) 600 mg BID PO 01/16/17 21:00 02/09/17 08:39 (Oscal) 500 mg TID PO 01/17/17 13:00 02/09/17 08:39 (K-Phos) 500 mg Q12HR PO 01/17/17 14:00 02/09/17 08:38 (SEROquel) 25 mg BID PO 01/17/17 21:00 02/09/17 08:40 (Trandate Inj) 10 mg Q4H PRN IV PUSH 01/20/17 08:30 01/20/17 17:27 (Levemir Inj) 5 units Q12HR SQ 01/23/17 09:00 02/09/17 08:41 (Dilaudid Pf Inj) 0.5 mg Q4HR PRN IV PUSH 01/23/17 14:45 02/07/17 23:00 (Dilaudid Pf Inj) 0.75 mg Q4HR PRN IV PUSH 01/23/17 14:45 02/06/17 16:48 Heparin Sodium/ Dextrose 250 ml @ 18 mls/hr TITRATE PRN IV 01/24/17 12:00 02/07/17 07:33 (D50w (Vial) Inj) 25 ml UNSCH PRN IV PUSH 01/24/17 16:00 (NovoLIN R SUPPLEMENTAL SCALE) 1 Q6HR SQ 01/24/17 18:00 02/05/17 00:41 (Rifampin) 300 mg Q12H PO 01/28/17 14:00 02/09/17 00:51 (Lopressor) 100 mg BID PO 01/29/17 21:00 02/09/17 08:39 (Cardizem) 30 mg Q6HR PO 01/30/17 12:00 02/09/17 06:41 Oxacillin Sodium 2 gm/Sodium Chloride 100 ml @ 200 mls/hr Q4H IV 01/30/17 16:00 02/09/17 08:38 (Mycostatin Powder) 1 applic Q12HR TOPICAL 02/03/17 21:00 02/08/17 08:32 (Dulcolax Supp) 10 mg DAILY RECTAL 02/05/17 12:00 02/07/17 08:24 (Cordarone) 400 mg DAILY PO 02/06/17 10:00 02/09/17 08:39 (Bumex Inj) 1 mg BID@09,18 IV PUSH 02/09/17 09:00 02/09/17 08:41 Family History Non contributory Social History Difficult to obtain but per records patient lives in a fdc. Physical Exam Vital Signs Vital Signs Date Time Temp Pulse Resp B/P (MAP) Pulse Ox O2 Delivery O2 Flow Rate FiO2 02/09/17 09:04 Nasal Cannula 3.00 02/09/17 08:00 100.5 89 18 125/81 (96) 98 02/09/17 04:00 99.8 76 18 142/76 (98) 95 02/09/17 00:00 98.9 72 17 147/81 (103) 94 02/08/17 20:00 100.1 75 17 162/94 (116) 94 02/08/17 19:31 94 Nasal Cannula 3.00 02/08/17 16:00 100.1 74 22 165/84 (111) 95 02/08/17 12:00 96.3 75 18 156/94 (114) 95 Physical Exam GENERAL: 56 year old male resting in bed in no acute distress. SKIN: Warm and dry. Several superficial wounds on BLE. HEAD: Atraumatic. Normocephalic. EYES: Pupils equal and round. No scleral icterus. No injection or drainage. ENT: No nasal bleeding or discharge. Mucous membranes pink and moist. NECK: Trachea midline. CARDIOVASCULAR: Regular rate and rhythm. RESPIRATORY: No accessory muscle use. Clear to auscultation. Breath sounds equal bilaterally. GASTROINTESTINAL: Abdomen soft, non-tender, nondistended. Obese abdomen. No visible scars or hernias. MUSCULOSKELETAL: Extremities without clubbing, cyanosis, or edema. No obvious deformities. NEUROLOGICAL: Awake and alert. No obvious cranial nerve deficits. Motor grossly within normal limits. Five out of 5 muscle strength in the arms and legs. Normal speech. PSYCHIATRIC: Slow to answer but appropriate. Laboratory Laboratory Tests Test 02/08/17 18:35 02/09/17 00:53 Ammonia 22 White Blood Count 15.8 Red Blood Count 3.15 Hemoglobin 9.3 Hematocrit 27.7 Mean Corpuscular Volume 87.9 Mean Corpuscular Hemoglobin 29.7 Mean Corpuscular Hemoglobin Concent 33.7 Red Cell Distribution Width 15.2 Platelet Count 208 Mean Platelet Volume 8.3 Neutrophils (%) (Auto) 79.4 Lymphocytes (%) (Auto) 9.0 Monocytes (%) (Auto) 9.3 Eosinophils (%) (Auto) 1.8 Basophils (%) (Auto) 0.5 Neutrophils # (Auto) 12.5 Lymphocytes # (Auto) 1.4 Monocytes # (Auto) 1.5 Eosinophils # (Auto) 0.3 Basophils # (Auto) 0.1 CBC Comment DIFF FINAL Differential Comment Activated Partial Thromboplast Time 44.1 Blood Urea Nitrogen 19 Creatinine 1.66 Random Glucose 88 Total Protein 7.8 Albumin 1.2 Calcium Level 8.1 Phosphorus Level 3.8 Magnesium Level 1.4 Alkaline Phosphatase 68 Aspartate Amino Transf (AST/SGOT) 54 Alanine Aminotransferase (ALT/SGPT) 10 Lactate Dehydrogenase 247 Total Bilirubin 0.6 Sodium Level 137 Potassium Level 4.6 Chloride Level 106 Carbon Dioxide Level 21.8 Anion Gap 9 Estimat Glomerular Filtration Rate 52 Date/Time Source Procedure Growth Status 02/01/17 06:12 Blood Peripheral Aerobic Blood Culture - Final NO GROWTH IN 5 DAYS Complete 02/01/17 06:12 Blood Peripheral Anaerobic Blood Culture - Final NO GROWTH IN 5 DAYS Complete 01/23/17 14:26 Urine Clean Catch Urine Culture - Final Staphylococcus Aureus Complete Result Diagram: 02/09/17 0053 02/09/17 0053 Imaging Last 48 hours Impressions Liver Ultrasound 02/08/17 0000 Signed Impressions: Service Date/Time: Wednesday, February 08, 2017 07:11 - CONCLUSION: 1. Ultrasound suggests a left upper quadrant fluid collection which appears new relative to the prior CT. On up-to-date CT is suggested. 2. Right pleural effusion evident , not new. 3. Otherwise within normal limits. Scot Sung MD Head CT 02/08/17 0000 Signed Impressions: Service Date/Time: Wednesday, February 08, 2017 22:32 - CONCLUSION: Old right sided infarcts. No acute intracranial findings. Frederic Bermudez MD Abdomen/Pelvis CT 02/08/17 0000 Signed Impressions: Service Date/Time: Wednesday, February 08, 2017 22:27 - CONCLUSION: 1. New bilateral iliopsoas abnormalities likely representing iliopsoas hematomas. 2. Severe abdominal wall edema diffusely (anasarca). 3. Bilateral pleural effusions and lower lobe atelectasis versus consolidation. Frederic Bermudez MD Assessment and Plan Assessment and Plan 56 year old male with LEFT upper extremity DVT on heparin drip with newly found bilateral iliopsoas hematomas -Wound recommend discontinuing heparin infusion -Exam benign for pain/discomfort -Monitor CBC -No surgical intervention required -Discussed with Dr. Araiza -Thank you for this consult Discussed Condition With Dr. Jose Manuel Araiza Pam Andrews Attending Statement iliopsoas hematoma seen incidentally on CT. Abdomen soft and non tender. On anti coagulation for upper extremity DVT. Pt now a bleeding risk. No surgical intervention for iliopsoas hematoma. Recommend stop anticoagulation. Interventional radiology for angio if bleeding becomes symptomatic, low Hgb, pain becomes a complaint. No indication for drainage unless becomes symptomatic, would not do open, would recommend via image guided percutaneous approach, ONLY if pt becomes symptomatic. Will sign off. Please call if you think there is any role for surgery and we can discuss before another consult is placed. Thank you. The exam, history, and the medical decision-making described in the above note were completed with the assistance of the mid-level provider. I reviewed and agree with the findings presented. I attest that I had a [id number] encounter with the patient on the same day, and personally performed and documented my assessment and findings in the medical record. Mary Rai Feb 09, 2017 10:48 Israel Richard MD Feb 09, 2017 16:55
--- NOTE | 2017-02-09 11:47 | PD.ONC.PN ---
Subjective Subjective Remarks Tmax 100.5 overnight. Patient resting in bed. CT ab/pelvis yesterday showed hematoma formation. Hgb stable today. Objective Data Date Time Temp Pulse Resp B/P (MAP) Pulse Ox O2 Delivery O2 Flow Rate FiO2 02/09/17 09:04 Nasal Cannula 3.00 02/09/17 08:00 100.5 89 18 125/81 (96) 98 02/09/17 04:00 99.8 76 18 142/76 (98) 95 02/09/17 00:00 98.9 72 17 147/81 (103) 94 02/08/17 20:00 100.1 75 17 162/94 (116) 94 02/08/17 19:31 94 Nasal Cannula 3.00 02/08/17 16:00 100.1 74 22 165/84 (111) 95 02/08/17 12:00 96.3 75 18 156/94 (114) 95 02/09/17 02/09/17 02/09/17 07:00 15:00 23:00 Intake Total 491 ml Output Total 850 ml Balance -359 ml Result Diagram: 02/09/173 02/09/17 0053 Laboratory Results Laboratory Tests Test 02/08/17 18:35 02/09/17 00:53 Ammonia 22 MCMOL/L White Blood Count 15.8 TH/MM3 Red Blood Count 3.15 MIL/MM3 Hemoglobin 9.3 GM/DL Hematocrit 27.7 % Mean Corpuscular Volume 87.9 FL Mean Corpuscular Hemoglobin 29.7 PG Mean Corpuscular Hemoglobin Concent 33.7 % Red Cell Distribution Width 15.2 % Platelet Count 208 TH/MM3 Mean Platelet Volume 8.3 FL Neutrophils (%) (Auto) 79.4 % Lymphocytes (%) (Auto) 9.0 % Monocytes (%) (Auto) 9.3 % Eosinophils (%) (Auto) 1.8 % Basophils (%) (Auto) 0.5 % Neutrophils # (Auto) 12.5 TH/MM3 Lymphocytes # (Auto) 1.4 TH/MM3 Monocytes # (Auto) 1.5 TH/MM3 Eosinophils # (Auto) 0.3 TH/MM3 Basophils # (Auto) 0.1 TH/MM3 CBC Comment DIFF FINAL Differential Comment Activated Partial Thromboplast Time 44.1 SEC Blood Urea Nitrogen 19 MG/DL Creatinine 1.66 MG/DL Random Glucose 88 MG/DL Total Protein 7.8 GM/DL Albumin 1.2 GM/DL Calcium Level 8.1 MG/DL Phosphorus Level 3.8 MG/DL Magnesium Level 1.4 MG/DL Alkaline Phosphatase 68 U/L Aspartate Amino Transf (AST/SGOT) 54 U/L Alanine Aminotransferase (ALT/SGPT) 10 U/L Lactate Dehydrogenase 247 U/L Total Bilirubin 0.6 MG/DL Sodium Level 137 MEQ/L Potassium Level 4.6 MEQ/L Chloride Level 106 MEQ/L Carbon Dioxide Level 21.8 MEQ/L Anion Gap 9 MEQ/L Estimat Glomerular Filtration Rate 52 ML/MIN Administered Medications Medications (Trade) Dose Ordered Sig/Mansi Route PRN Reason Start Time Stop Time Status Last Admin Dose Admin Acetaminophen (Tylenol) 650 mg Q6H PRN PO PAIN SCALE 1 TO 4 01/10/17 17:00 02/01/17 00:12 Atorvastatin Calcium (Lipitor) 80 mg HS PO 01/10/17 21:00 02/07/17 23:01 Aspirin (Ecotrin Ec) 81 mg DAILY PO 01/10/17 17:00 02/09/17 08:39 Sodium Chloride (NS Flush) 2 ml BID IV FLUSH 01/10/17 21:00 02/07/17 20:37 Chlorhexidine Gluconate (Chlorhexidine 2% Cloth) Taper DAILY@04 TOP 01/11/17 04:00 01/07/18 03:59 02/04/17 05:28 Senna/Docusate Sodium (Afia-Colace) 1 tab BID PO 01/10/17 21:00 02/09/17 08:40 Magnesium Hydroxide (Milk Of Magnesia Liq) 30 ml Q12H PRN PO Mild constipation 01/10/17 17:15 02/04/17 08:51 Lactulose (Lactulose Liq) 30 ml DAILY PRN PO SEVERE CONSITIPATION 01/10/17 17:15 02/04/17 08:51 Dexmedetomidine HCl 200 mcg/ Sodium Chloride 52 ml @ 5.46 mls/hr TITRATE PRN IV SEDATION 01/11/17 00:00 01/12/17 14:53 Haloperidol Lactate (Haldol Inj) 5 mg Q4H PRN IV agitation 01/12/17 17:00 02/07/17 19:36 Metoclopramide HCl (Reglan Inj) 5 mg Q8H IV PUSH 01/15/17 10:00 02/09/17 08:39 Hydralazine HCl (Apresoline Inj) 10 mg Q4H PRN IV PUSH SYS BP GREATER THAN 160 MMHG 01/15/17 10:00 02/07/17 13:10 Potassium Chloride 100 ml @ 50 mls/hr Q2H IV 01/15/17 10:00 Future Hold 01/16/17 06:11 Clonidine (Catapres-Tts 0.3 Mg Patch.7d) 1 patch Q7D T-DERMAL 01/16/17 10:00 02/06/17 09:10 Miscellaneous Information 1 Q7D T-DERMAL 01/16/17 10:00 02/06/17 09:10 Guaifenesin (Mucinex Er) 600 mg BID PO 01/16/17 21:00 02/09/17 08:39 Calcium Carbonate (Oscal) 500 mg TID PO 01/17/17 13:00 02/09/17 08:39 Potassium Phosphate (K-Phos) 500 mg Q12HR PO 01/17/17 14:00 02/09/17 08:38 Quetiapine Fumarate (SEROquel) 25 mg BID PO 01/17/17 21:00 02/09/17 08:40 Labetalol HCl (Trandate Inj) 10 mg Q4H PRN IV PUSH SBP>160, DBP>90 01/20/17 08:30 01/20/17 17:27 Insulin Detemir (Levemir Inj) 5 units Q12HR SQ 01/23/17 09:00 02/09/17 08:41 Hydromorphone HCl (Dilaudid Pf Inj) 0.5 mg Q4HR PRN IV PUSH SEE LABEL COMMENTS 01/23/17 14:45 02/07/17 23:00 Hydromorphone HCl (Dilaudid Pf Inj) 0.75 mg Q4HR PRN IV PUSH SEE LABEL COMMENTS 01/23/17 14:45 02/06/17 16:48 Heparin Sodium/ Dextrose 250 ml @ 18 mls/hr TITRATE PRN IV Coagulation Management 01/24/17 12:00 02/07/17 07:33 Insulin Human Regular (NovoLIN R SUPPLEMENTAL SCALE) 1 Q6HR SQ 01/24/17 18:00 02/05/17 00:41 Rifampin (Rifampin) 300 mg Q12H PO 01/28/17 14:00 02/09/17 00:51 Metoprolol Tartrate (Lopressor) 100 mg BID PO 01/29/17 21:00 02/09/17 08:39 Diltiazem HCl (Cardizem) 30 mg Q6HR PO 01/30/17 12:00 02/09/17 06:41 Oxacillin Sodium 2 gm/Sodium Chloride 100 ml @ 200 mls/hr Q4H IV 01/30/17 16:00 02/09/17 08:38 Nystatin (Mycostatin Powder) 1 applic Q12HR TOPICAL 02/03/17 21:00 02/08/17 08:32 Bisacodyl (Dulcolax Supp) 10 mg DAILY RECTAL 02/05/17 12:00 02/07/17 08:24 Amiodarone HCl (Cordarone) 400 mg DAILY PO 02/06/17 10:00 02/09/17 08:39 Bumetanide (Bumex Inj) 1 mg BID@,18 IV PUSH 02/09/17 09:00 02/09/17 08:41 Objective Remarks GENERAL: Middle aged male supine in bed. SKIN: Warm and dry. HEAD: Normocephalic. EYES: No scleral icterus. NECK: Supple, trachea midline. CARDIOVASCULAR: +S1/S2 RESPIRATORY: anterior sifuentes clear. GASTROINTESTINAL: Abdomen soft, non-tender, nondistended. EXTREMITIES: No cyanosis NEUROLOGICAL: awake. mildly slurred speech. left sided paresis. Assessment/Plan Problem List: (1) Severe anemia ICD Codes: D64.9 - Anemia, unspecified Plan: --CT ab/pelvis shows hematoma formation --On admission he was found to have a significant decrease in hemoglobin from 10.2 to 6.4. --has been transfused multiple units during this hospitalization --haptoglobin WNL, LDH mildly elevated, bilirubin WNL (2) Deep venous thrombosis of left upper extremity ICD Codes: I82.622 - Acute embolism and thrombosis of deep veins of left upper extremity Plan: --on heparin --u/s MALACHI, 01/23 showed thrombus jugular, subclavian and basilic veins of left arm (3) Sepsis ICD Codes: A41.9 - Sepsis, unspecified organism Status: Acute Plan: on antibiotics. ID following. Assessment 56y/o male admitted with generalized weakness and dizziness. Hematology consulted for anemia. history of chronic kidney disease, previous CVA with residual left-sided weakness. --At baseline lives in a [facility] and walks with a cane. Plan 1. monitor CBC 2. no transfusion needed today. 3. await general surgery consult. Attending Statement The exam, history, and the medical decision-making described in the above note were completed with the assistance of the mid-level provider. I reviewed and agree with the findings presented. I attest that I had a [id number] encounter with the patient on the same day, and personally performed and documented my assessment and findings in the medical record. Hgb stable. NOted CT results which explain need for transfusion. No transfusion needed today. No sign of hemolysis. Problem Qualifiers (1) Deep venous thrombosis of left upper extremity: Qualified Codes: I82.622 - Acute embolism and thrombosis of deep veins of left upper extremity Lida Gonzalez Feb 09, 2017 11:47 Telma Fernandes MD Feb 09, 2017 20:25
[2017-02-09 12:00] VITALS: BP 177/98; PULSE 80; RESP 17; TEMP 96.3; O2SAT 96
[2017-02-09] MEDS: HEPARIN-D5W 25,000 U/250 ML 250 ML IV PRN (12:47)
--- NOTE | 2017-02-09 14:07 | HHI.HCPN ---
Reason for visit a. To assist with evaluation and management of symptoms including: pain, weakness. b. To assist medical decision maker(s) with: better understanding of current medical conditions; weighing benefits/burdens of medical treatment options; making medical treatment decisions. . (Dariana Stephen) Subjective/Interval History Patient seen in room. No family at bedside. Also present Sonja Malone LCSW. Upon arrival patient is laying with blankets over his head. When I pulled the blankets off his head and introduced my self he tells me he "is trying to get his mind right." I attempted to get him to elaborate, he tells me he feels bad from all we did to him. I asked if he had pain, he indicates yes, does not further quantify or qualify. He get agitated with additional questioning and pulls the covers over his head. He declines further exam. GI was consulted for possible EGD/ colonoscopy however refused on 02/08/17. Patient was seen by psychiatry today and deemed capacitated to make his own medical decisions. I am unable to further clarify goals with patient as he refuses to speak with me as above. General surgery has been consulted for evaluation of new bilateral iliopsoas abnormalities likely hematomas, severe abdominal wall edema (anasarca), bilateral pleural effusions and lower lobe atelectasis vs. consolidation on CT abdomen/ pelvis 02/08/17. CT head old right sided infarcts, no acute findings. Liver ultrasound left upper quadrant fluid collection new compared to prior imaging. On oxygen via NC. Tmax 100.5. Easily agitated during my visit. WBC 15.8, Hemoglobin 9.3, was 4.9 on 02/07/17 post transfusion. Creatinine 1.66. Albumin 1.2. Notes indicate he eating 50-100% of some meals. . Family/friend interactions Palliative care number previously provided to brother, patient is now capacitated to make his own decisions per psych. Will call brother with update in the coming days. . (Dariana Stephen) Advance Directives Living Will: Never completed Health Care Surrogate: Never completed Durable Power of Public Aid Eligibility Assistant: Never completed (Dariana Stephen) Advance Directive Specifics Health Care Surrogate(s): Decision Maker: Patient deemed capacitated per psychiatry 02/09/17 to make his own health care decisions. Single. No children. Mother in a skilled nursing with underlying schizophrenia, not capacitated herself. Father . 2 sisters and one brother. 2 sisters, Lizeth and Alejandrina do not wish to serve as healthcare proxy decision makers. Therefore, healthcare proxy decision-making will fall to the patient's brother, Yareli Andrews, he has been willing to serve in this role. . Significant change in goals: FULL CODE. Goals remain aggressive. Will attempt to clarify goals with patient in the coming days. . (Dariana Stephen) Objective Vital Signs Date Time Temp Pulse Resp B/P (MAP) Pulse Ox O2 Delivery O2 Flow Rate FiO2 02/09/17 12:00 96.3 80 17 177/98 (124) 96 02/09/17 09:04 Nasal Cannula 3.00 02/09/17 08:00 100.5 89 18 125/81 (96) 98 02/09/17 04:00 99.8 76 18 142/76 (98) 95 02/09/17 00:00 98.9 72 17 147/81 (103) 94 02/08/17 20:00 100.1 75 17 162/94 (116) 94 02/08/17 19:31 94 Nasal Cannula 3.00 02/08/17 16:00 100.1 74 22 165/84 (111) 95 Intake & Output 02/09/17 02/09/17 07:00 19:00 Intake Total 1163 ml 450 ml Output Total 850 ml Balance 313 ml 450 ml Intake Oral 240 ml IV Total 923 ml 450 ml Output Urine Total 850 ml Physical Exam Patient did not allow complete physical exam, covers head and body with blankets. . CONSTITUTIONAL/GENERAL: This is an adequately nourished patient, agitated. TUBES/LINES/DRAINS: NC, condom catheter. SKIN: Not diaphoretic. CARDIOVASCULAR: not examined. RESPIRATORY/CHEST: Unlabored respirations on NC. GASTROINTESTINAL: Abdomen distended. GENITOURINARY: Condom catheter. MUSCULOSKELETAL: not examined. NEUROLOGICAL: awakens, agitated. PSYCHIATRIC: agitated. . (Dariana Stephen) Diagnostic Tests Laboratory Laboratory Tests Test 02/07/17 04:00 02/08/17 05:57 02/08/17 18:35 02/09/17 00:53 White Blood Count 16.3 TH/MM3 (4.0-11.0) 14.8 TH/MM3 (4.0-11.0) 15.8 TH/MM3 (4.0-11.0) Red Blood Count 1.69 MIL/MM3 (4.50-5.90) 3.23 MIL/MM3 (4.50-5.90) 3.15 MIL/MM3 (4.50-5.90) Hemoglobin 4.9 GM/DL (13.0-17.0) 9.4 GM/DL (13.0-17.0) 9.3 GM/DL (13.0-17.0) Hematocrit 15.1 % (39.0-51.0) 28.1 % (39.0-51.0) 27.7 % (39.0-51.0) Mean Corpuscular Volume 89.4 FL (80.0-100.0) 87.0 FL (80.0-100.0) 87.9 FL (80.0-100.0) Mean Corpuscular Hemoglobin 28.9 PG (27.0-34.0) 29.2 PG (27.0-34.0) 29.7 PG (27.0-34.0) Mean Corpuscular Hemoglobin Concent 32.3 % (32.0-36.0) 33.6 % (32.0-36.0) 33.7 % (32.0-36.0) Red Cell Distribution Width 15.8 % (11.6-17.2) 14.7 % (11.6-17.2) 15.2 % (11.6-17.2) Platelet Count 254 TH/MM3 (150-450) 224 TH/MM3 (150-450) 208 TH/MM3 (150-450) Mean Platelet Volume 8.3 FL (7.0-11.0) 8.1 FL (7.0-11.0) 8.3 FL (7.0-11.0) Neutrophils (%) (Auto) 79.0 % (16.0-70.0) 79.6 % (16.0-70.0) 79.4 % (16.0-70.0) Lymphocytes (%) (Auto) 9.5 % (9.0-44.0) 8.0 % (9.0-44.0) 9.0 % (9.0-44.0) Monocytes (%) (Auto) 9.1 % (0.0-8.0) 9.8 % (0.0-8.0) 9.3 % (0.0-8.0) Eosinophils (%) (Auto) 1.9 % (0.0-4.0) 2.2 % (0.0-4.0) 1.8 % (0.0-4.0) Basophils (%) (Auto) 0.5 % (0.0-2.0) 0.4 % (0.0-2.0) 0.5 % (0.0-2.0) Neutrophils # (Auto) 12.9 TH/MM3 (1.8-7.7) 11.8 TH/MM3 (1.8-7.7) 12.5 TH/MM3 (1.8-7.7) Lymphocytes # (Auto) 1.5 TH/MM3 (1.0-4.8) 1.2 TH/MM3 (1.0-4.8) 1.4 TH/MM3 (1.0-4.8) Monocytes # (Auto) 1.5 TH/MM3 (0-0.9) 1.5 TH/MM3 (0-0.9) 1.5 TH/MM3 (0-0.9) Eosinophils # (Auto) 0.3 TH/MM3 (0-0.4) 0.3 TH/MM3 (0-0.4) 0.3 TH/MM3 (0-0.4) Basophils # (Auto) 0.1 TH/MM3 (0-0.2) 0.1 TH/MM3 (0-0.2) 0.1 TH/MM3 (0-0.2) CBC Comment DIFF FINAL DIFF FINAL DIFF FINAL Differential Comment Activated Partial Thromboplast Time 54.9 SEC (24.3-30.1) 42.6 SEC (24.3-30.1) 44.1 SEC (24.3-30.1) Blood Urea Nitrogen 20 MG/DL (7-18) 20 MG/DL (7-18) 19 MG/DL (7-18) Creatinine 1.70 MG/DL (0.60-1.30) 1.72 MG/DL (0.60-1.30) 1.66 MG/DL (0.60-1.30) Random Glucose 137 MG/DL (74-106) 134 MG/DL (74-106) 88 MG/DL (74-106) Total Protein 7.0 GM/DL (6.4-8.2) 8.1 GM/DL (6.4-8.2) 7.8 GM/DL (6.4-8.2) Albumin 1.1 GM/DL (3.4-5.0) 1.3 GM/DL (3.4-5.0) 1.2 GM/DL (3.4-5.0) Calcium Level 7.6 MG/DL (8.5-10.1) 7.9 MG/DL (8.5-10.1) 8.1 MG/DL (8.5-10.1) Phosphorus Level 4.3 MG/DL (2.5-4.9) 3.4 MG/DL (2.5-4.9) 3.8 MG/DL (2.5-4.9) Magnesium Level 1.4 MG/DL (1.5-2.5) 1.5 MG/DL (1.5-2.5) 1.4 MG/DL (1.5-2.5) Alkaline Phosphatase 53 U/L (45-117) 60 U/L (45-117) 68 U/L (45-117) Aspartate Amino Transf (AST/SGOT) 55 U/L (15-37) 57 U/L (15-37) 54 U/L (15-37) Alanine Aminotransferase (ALT/SGPT) 9 U/L (12-78) 8 U/L (12-78) 10 U/L (12-78) Total Bilirubin 0.5 MG/DL (0.2-1.0) 0.9 MG/DL (0.2-1.0) 0.6 MG/DL (0.2-1.0) Sodium Level 135 MEQ/L (136-145) 136 MEQ/L (136-145) 137 MEQ/L (136-145) Potassium Level 5.2 MEQ/L (3.5-5.1) 4.6 MEQ/L (3.5-5.1) 4.6 MEQ/L (3.5-5.1) Chloride Level 107 MEQ/L (98-107) 106 MEQ/L (98-107) 106 MEQ/L (98-107) Carbon Dioxide Level 20.2 MEQ/L (21.0-32.0) 24.6 MEQ/L (21.0-32.0) 21.8 MEQ/L (21.0-32.0) Anion Gap 8 MEQ/L (5-15) 5 MEQ/L (5-15) 9 MEQ/L (5-15) Estimat Glomerular Filtration Rate 51 ML/MIN (>89) 50 ML/MIN (>89) 52 ML/MIN (>89) Reticulocyte Count 2.3 % (0.4-3.0) Absolute Reticulocyte Count 73.5 MIL/L (20.0-150.0) Haptoglobin 131 MG/DL (30-200) Lactate Dehydrogenase 284 U/L (87-241) 247 U/L (87-241) Ammonia 22 MCMOL/L (11-32) (Dariana Stephen) Result Diagram: 02/09/17 00502/09/17 005 Microbiology Microbiology Date/Time Source Procedure Growth Status 02/01/17 06:12 Blood Peripheral Aerobic Blood Culture - Final NO GROWTH IN 5 DAYS Complete 02/01/17 06:12 Blood Peripheral Anaerobic Blood Culture - Final NO GROWTH IN 5 DAYS Complete 01/23/17 14:26 Urine Clean Catch Urine Culture - Final Staphylococcus Aureus Complete Imaging Last Impressions Liver Ultrasound 02/08/17 0000 Signed Impressions: Service Date/Time: Wednesday, February 08, 2017 07:11 - CONCLUSION: 1. Ultrasound suggests a left upper quadrant fluid collection which appears new relative to the prior CT. On up-to-date CT is suggested. 2. Right pleural effusion evident , not new. 3. Otherwise within normal limits. Scot Sung MD Head CT 02/08/17 0000 Signed Impressions: Service Date/Time: Wednesday, February 08, 2017 22:32 - CONCLUSION: Old right sided infarcts. No acute intracranial findings. Frederic Bermudez MD Abdomen/Pelvis CT 02/08/17 0000 Signed Impressions: Service Date/Time: Wednesday, February 08, 2017 22:27 - CONCLUSION: 1. New bilateral iliopsoas abnormalities likely representing iliopsoas hematomas. 2. Severe abdominal wall edema diffusely (anasarca). 3. Bilateral pleural effusions and lower lobe atelectasis versus consolidation. Frederic Bermudez MD Lower Extremity Ultrasound 02/04/17 0000 Signed Impressions: Service Date/Time: Saturday, February 04, 2017 07:41 - CONCLUSION: Normal examination. Jermaine Malone Jr., MD Abdomen X-Ray 01/25/17 0000 Signed Impressions: Service Date/Time: Wednesday, January 25, 2017 14:33 - CONCLUSION: Nonspecific, nonobstructive bowel gas pattern. Scot Sung MD Upper Extremity Ultrasound 01/23/17 0000 Signed Impressions: Service Date/Time: Monday, January 23, 2017 17:45 - CONCLUSION: Thrombus identified within the internal jugular, subclavian, and the basilic veins. Jeyson Luciano MD Chest X-Ray 01/21/17 0000 Signed Impressions: Service Date/Time: Saturday, January 21, 2017 22:42 - CONCLUSION: New hazy opacity in both lungs with concern for ovarian edema and congestive heart failure. Jose Espinal MD Renal Ultrasound 01/10/17 0000 Signed Impressions: Service Date/Time: Tuesday, January 10, 2017 17:01 - CONCLUSION: Normal examination. Jermaine Malone Jr., MD (Dariana Stephen [facility]) Assessment and Plan Disease Oriented Problem List: (1) Leukocytosis (2) Malnutrition (3) HTN (hypertension) (4) Atrial flutter (5) Acute metabolic encephalopathy (6) Acute on chronic kidney failure (7) Diabetes Symptom Scale: (1) Pain 0-10 Scale: Unable to quantify Comment: Patient not answering most questions. (2) Weakness 0-10 Scale: Unable to quantify Comment: Secondary to prior CVA, left hemiparesis (3) Decreased appetite 0-10 Scale: Unable to quantify Comment: eating small amounts, lunch at bedside, non eaten. Pertinent Non-Medical Issues Psychosocial: Single. No children. Disabled. Brother, Isabela Andrews is serving as healthcare proxy decision maker per [place] statutes. Spiritual: [employer] caroline. Legal:Decision Maker: Patient deemed capacitated per psychiatry 02/09/17 to make his own health care decisions. Single. No children. Mother in a skilled nursing with underlying schizophrenia, not capacitated herself. Father . 2 sisters and one brother. 2 sisters, Lizeth and Alejandrina do not wish to serve as healthcare proxy decision makers. Therefore, healthcare proxy decision-making will fall to the patient's brother, Yareli Andrews, he has been willing to serve in this role. Ethical issues impacting care: no known concerns at this time. . Important Contacts * Isabela Andrews, brother/HCP: [phone] * Christy Colon, ex sister in law ([place] ex- - who pt trusts): [phone] * Alta Andrews, sister opted out of HCP decision-making and [phone] * Alejandrina sifuentes, sister, opted out of HCP decision [phone] * Kylee Kendall, mother, incapacitated, in SNF . Prognosis Mr. Andrews is a 56-year-old male with long history of noncompliance, refusing medication, questionable underlying psychiatric disease, admitted with acute on chronic renal failure, coronary artery disease, atrial fib/flutter refusing medications. Patient remains high risk for repeat hospitalization, further decline or even . Uncertain if patient has underlying psychiatric disease if this was treated would he be more readily open to taking medications. Will attempt to discuss with psychiatry. Family feels patient has had psychiatric issues since he was a child that were never diagnosed. . Code Status: Full Code Plan * Decision Maker: Patient deemed capacitated per psychiatry 02/09/17 to make his own health care decisions. Single. No children. Mother in a skilled nursing with underlying schizophrenia, not capacitated herself. Father . 2 sisters and one brother. 2 sisters, Lizeth and Alejandrina do not wish to serve as healthcare proxy decision makers. Therefore, healthcare proxy decision-making will fall to the patient's brother, Yareli Andrews, he has been willing to serve in this role. * FULL CODE - DNR revoked by Yareli (HCP) on 01/23/17. * Goals remain aggressive. Will attempt to clarify goals with patient when he is more cooperative. DEemed capacitated by psych 02/09/17. * SYMPTOMS: Pain: no obvious signs of pain during my visit. Weakness: debility due to prior stroke. Anorexia/poor appetite: appetite continues to generally be poor, though fluctuates.Eats better when family feeds.albumin 1.3 * Palliative care will continue to follow throughout hospital course to assist with symptom management and clarification of goals as needed. . (Dariana Stephen) Attestation To help prompt me to consider important information that might be impacting today's encounter and assessment, information from prior notes written by myself or my colleagues may have been "brought forward" into today's note. My signature on this note, however, is an attestation that I personally performed the exam, history, and/or decision-making noted today, and, unless otherwise indicated, the interactions with patient, family, and staff as well as the review of records all occurred today. I also attest that the listed assessment and stated plan reflect my best clinical judgment today based on the combination of historical information, prior notes, and today's exam/ interactions. When time spent is documented, it refers only to time spent today by the signer, or if indicated, combined time spent today by collaborating physician/nurse practitioner. (Dariana Stephen) Attestation Discussed with GET, agree with assessment and plan (Reinaldo Escamilla MD) Dariana Stephen Feb 09, 2017 14:07 Reinaldo Escamilla MD Feb 10, 2017 09:54
[2017-02-09 16:00] VITALS: BP 112/86; PULSE 140; RESP 19; TEMP 98.2; O2SAT 97
--- NOTE | 2017-02-09 16:35 | HHI.PR ---
Subjective Remarks Patient is awake nurse states that patient has some open wounds in the right lower extremity. Patient is having fevers with t max of 100.5 Objective Vitals Vital Signs Date Time Temp Pulse Resp B/P (MAP) Pulse Ox O2 Delivery O2 Flow Rate FiO2 02/09/17 16:00 98.2 140 19 112/86 (95) 97 02/09/17 12:00 96.3 80 17 177/98 (124) 96 02/09/17 09:04 Nasal Cannula 3.00 02/09/17 08:00 100.5 89 18 125/81 (96) 98 02/09/17 04:00 99.8 76 18 142/76 (98) 95 02/09/17 00:00 98.9 72 17 147/81 (103) 94 02/08/17 20:00 100.1 75 17 162/94 (116) 94 02/08/17 19:31 94 Nasal Cannula 3.00 I/O 02/08/17 02/08/17 02/08/17 02/09/17 02/09/17 02/09/17 07:00 15:00 23:00 07:00 15:00 23:00 Intake Total 550 ml 100 ml 1572 ml 491 ml 450 ml Output Total 400 ml 1600 ml 850 ml Balance 150 ml 100 ml -28 ml -359 ml 450 ml Intake Oral 0 ml 800 ml 240 ml IV Total 550 ml 100 ml 772 ml 251 ml 450 ml Output Urine Total 400 ml 1600 ml 850 ml # Bowel Movements 0 Result Diagram: 02/09/17 0053 02/09/17 0053 Imaging Last Impressions Liver Ultrasound 02/08/17 0000 Signed Impressions: Service Date/Time: Wednesday, February 08, 2017 07:11 - CONCLUSION: 1. Ultrasound suggests a left upper quadrant fluid collection which appears new relative to the prior CT. On up-to-date CT is suggested. 2. Right pleural effusion evident , not new. 3. Otherwise within normal limits. Scot Sung MD Head CT 02/08/17 0000 Signed Impressions: Service Date/Time: Wednesday, February 08, 2017 22:32 - CONCLUSION: Old right sided infarcts. No acute intracranial findings. Frederic Bermudez MD Abdomen/Pelvis CT 02/08/17 0000 Signed Impressions: Service Date/Time: Wednesday, February 08, 2017 22:27 - CONCLUSION: 1. New bilateral iliopsoas abnormalities likely representing iliopsoas hematomas. 2. Severe abdominal wall edema diffusely (anasarca). 3. Bilateral pleural effusions and lower lobe atelectasis versus consolidation. Frederic Bermudez MD Lower Extremity Ultrasound 02/04/17 0000 Signed Impressions: Service Date/Time: Saturday, February 04, 2017 07:41 - CONCLUSION: Normal examination. Jermaine Malone Jr., MD Abdomen X-Ray 01/25/17 0000 Signed Impressions: Service Date/Time: Wednesday, January 25, 2017 14:33 - CONCLUSION: Nonspecific, nonobstructive bowel gas pattern. Scot Sung MD Upper Extremity Ultrasound 01/23/17 0000 Signed Impressions: Service Date/Time: Monday, January 23, 2017 17:45 - CONCLUSION: Thrombus identified within the internal jugular, subclavian, and the basilic veins. Jeyson Luciano MD Chest X-Ray 01/21/17 0000 Signed Impressions: Service Date/Time: Saturday, January 21, 2017 22:42 - CONCLUSION: New hazy opacity in both lungs with concern for ovarian edema and congestive heart failure. Jose Espinal MD Renal Ultrasound 01/10/17 0000 Signed Impressions: Service Date/Time: Tuesday, January 10, 2017 17:01 - CONCLUSION: Normal examination. Jermaine Malone Jr., MD Objective Remarks GENERAL: Patient seems more alert but still seems to be confused SKIN: Warm and dry. HEAD: Atraumatic. Normocephalic. EYES: Pupils equal and round. No scleral icterus. No injection or drainage. EOMI ENT: No nasal bleeding or discharge. Mucous membranes pink and moist. TONGUE IS MIDLINE NECK: Trachea midline. No JVD. SUPPLE CARDIOVASCULAR: IRRegular rate and rhythm. S1, S2 NO S3 OR S4 RESPIRATORY: No accessory muscle use. Clear to auscultation. Breath sounds equal bilaterally. GASTROINTESTINAL: Abdomen soft, non-tender, nondistended. Hepatic and splenic margins not palpable. MUSCULOSKELETAL: Extremities without clubbing, cyanosis, or edema. No obvious deformities. NEUROLOGICAL: Awake and alert. No obvious cranial nerve deficits. Motor grossly within normal limits. Five out of 5 muscle strength in the arms and legs ON RIGHT 4/4 ON LEFT SIDE. Normal speech. PSYCHIATRIC: Appropriate mood and affect; insight and judgment normal.SOME CONFUSION Procedures LIGIA Medications and IVs Current Medications Medications (Trade) Dose Ordered Sig/Mansi Route Start Time Stop Time Status Last Admin (Tylenol) 650 mg Q6H PRN PO 01/10/17 17:00 02/01/17 00:12 (Proair Hfa Inh) 2 puff Q6H PRN INH 01/10/17 17:00 (Lipitor) 80 mg HS PO 01/10/17 21:00 02/07/17 23:01 (Nitrostat Sl) 0.4 mg Q3H PRN SL 01/10/17 17:00 (Ecotrin Ec) 81 mg DAILY PO 01/10/17 17:00 02/09/17 08:39 (NS Flush) 2 ml BID IV FLUSH 01/10/17 21:00 02/07/17 20:37 Miscellaneous Information 1 Q361D XX 01/10/17 17:15 (Chlorhexidine 2% Cloth) Taper DAILY@04 TOP 01/11/17 04:00 01/07/18 03:59 02/04/17 05:28 (Chlorhexidine 2% Cloth) 3 pack UNSCH PRN TOP 01/10/17 17:15 (Afia-Colace) 1 tab BID PO 01/10/17 21:00 02/09/17 08:40 (Milk Of Magnesia Liq) 30 ml Q12H PRN PO 01/10/17 17:15 02/04/17 08:51 (Senokot) 17.2 mg Q12H PRN PO 01/10/17 17:15 (Dulcolax Supp) 10 mg DAILY PRN RECTAL 01/10/17 17:15 (Lactulose Liq) 30 ml DAILY PRN PO 01/10/17 17:15 02/04/17 08:51 Dexmedetomidine HCl 200 mcg/ Sodium Chloride 52 ml @ 5.46 mls/hr TITRATE PRN IV 01/11/17 00:00 01/12/17 14:53 (Haldol Inj) 5 mg Q4H PRN IV 01/12/17 17:00 02/07/17 19:36 (Reglan Inj) 5 mg Q8H IV PUSH 01/15/17 10:00 02/09/17 08:39 (Apresoline Inj) 10 mg Q4H PRN IV PUSH 01/15/17 10:00 02/07/17 13:10 Potassium Chloride 100 ml @ 50 mls/hr Q2H IV 01/15/17 10:00 Future Hold 01/16/17 06:11 (Catapres-Tts 0.3 Mg Patch.7d) 1 patch Q7D T-DERMAL 01/16/17 10:00 02/06/17 09:10 Miscellaneous Information 1 Q7D T-DERMAL 01/16/17 10:00 02/06/17 09:10 (Mucinex Er) 600 mg BID PO 01/16/17 21:00 02/09/17 08:39 (Oscal) 500 mg TID PO 01/17/17 13:00 02/09/17 08:39 (K-Phos) 500 mg Q12HR PO 01/17/17 14:00 02/09/17 08:38 (SEROquel) 25 mg BID PO 01/17/17 21:00 02/09/17 08:40 (Trandate Inj) 10 mg Q4H PRN IV PUSH 01/20/17 08:30 01/20/17 17:27 (Levemir Inj) 5 units Q12HR SQ 01/23/17 09:00 02/09/17 08:41 (Dilaudid Pf Inj) 0.5 mg Q4HR PRN IV PUSH 01/23/17 14:45 02/07/17 23:00 (Dilaudid Pf Inj) 0.75 mg Q4HR PRN IV PUSH 01/23/17 14:45 02/06/17 16:48 Heparin Sodium/ Dextrose 250 ml @ 18 mls/hr TITRATE PRN IV 01/24/17 12:00 Future Hold 02/09/17 12:47 (D50w (Vial) Inj) 25 ml UNSCH PRN IV PUSH 01/24/17 16:00 (NovoLIN R SUPPLEMENTAL SCALE) 1 Q6HR SQ 01/24/17 18:00 02/05/17 00:41 (Rifampin) 300 mg Q12H PO 01/28/17 14:00 02/09/17 00:51 (Lopressor) 100 mg BID PO 01/29/17 21:00 02/09/17 08:39 (Cardizem) 30 mg Q6HR PO 01/30/17 12:00 02/09/17 06:41 Oxacillin Sodium 2 gm/Sodium Chloride 100 ml @ 200 mls/hr Q4H IV 01/30/17 16:00 02/09/17 12:44 (Mycostatin Powder) 1 applic Q12HR TOPICAL 02/03/17 21:00 02/08/17 08:32 (Dulcolax Supp) 10 mg DAILY RECTAL 02/05/17 12:00 02/07/17 08:24 (Cordarone) 400 mg DAILY PO 02/06/17 10:00 02/09/17 08:39 (Bumex Inj) 1 mg BID@09,18 IV PUSH 02/09/17 09:00 02/09/17 08:41 A/P Problem List: (1) Acute on chronic kidney failure ICD Code: N17.9 - Acute kidney failure, unspecified; N18.9 - Chronic kidney disease, unspecified (2) Combined metabolic and respiratory acidosis (3) Acute metabolic encephalopathy ICD Code: G93.41 - Metabolic encephalopathy (4) NSTEMI (non-ST elevated myocardial infarction) ICD Code: I21.4 - Non-ST elevation (NSTEMI) myocardial infarction (5) Hyperkalemia ICD Code: E87.5 - Hyperkalemia Status: Acute (6) Metabolic acidemia ICD Code: E87.2 - Acidosis (7) History of CVA (cerebrovascular accident) ICD Code: Z86.73 - Personal history of transient ischemic attack (TIA), and cerebral infarction without residual deficits Status: Chronic (8) Diabetes ICD Code: E11.9 - Type 2 diabetes mellitus without complications Status: Acute (9) HTN (hypertension) ICD Code: I10 - Essential (primary) hypertension Status: Chronic Assessment and Plan 56-year-old male admitted secondary to bacteremia, fever, A. fib RVR, left arm DVT, encephalopathy. Labs reviewed. Hemoglobin level dropped. 2 units packed red blood cells transfused 02/01/17. Calcium level is low and supplementation provided. Continue to monitor renal function and white blood cell count. Labs ordered for further monitoring Severe Anemia The patient is status post transfusion of a total of 9 units of packed blood cells. Hematology has been consulted for evaluation of hemolytic anemia, however patient has haptoglobin and reticulocyte count within normal limits, bilirubin within normal limits and LDH mildly elevated. Ultrasound the liver shows left upper quadrant fluid collection. I ordered GI consultations and stool for Hemoccult blood. Appreciate GI recommendations. The patient is refusing EGD for/colonoscopy. However I believe that the patient at this point is not capable of making his medical decisions. Consult psychiatry. Acute Metabolic Encephalopathy Agitated Delirium History of Previous CVA with left hemiparesis Delirium The patient seems to be confused - check head CT Last ammonia level checked on 02/01 normal. 02/09 discussed case with psychiatry - Patient is able to make medical decisions at this time and is competent. Severe combined Metabolic and respiratory acidosis Resolved Continue bronchodilators Continue incentive spirometry Continue mucolytic A flutter/fibrillation with RVR Elevated troponin Coronary artery disease By mouth Cardizem continued-SWITCH OFF IV Continue metoprolol Cardiology following IV heparin STARTED ON AMIODARONE DRIP 02-05 SWITCHED TO PO AMIODARONE 400MG PO DAILY Left upper extremity DVT Started on IV heparin Follow clinically 02/09 Dc Iv heparin due to hematomas Diabetes mellitus type 2 Blood sugar seems to be stable. Continue SSI with insulin NovoLog. Diabetic diet. Sepsis Resolved MSSA bacteremia - had vascath placed 01/10, removed 01/15 - has DVT LUE including LIJ and LSC, and previously had vascath and suspicious for infected thrombophlebitis - has basilar opacities, ?fluid; not coughing or congested, less likely PNA - BC still (+) - Negative LIGIA Continue Oxacillin Continue Rifampin Follow C/S He will need 6 weeks IV Abx from date of last (+) BC - if no other new (+) BC, anticipated end date is Mar 11 Labs while on Abx: CBC, creat, CBC Acute kidney injury The patient has CK V and developed a GI Patient also had metabolic acidosis and hyperkalemia which have resolved. Status post one session of hemodialysis and acute renal failure resolved. AKA likely due to ATN which is resolving. Creatinine 1.7, better with nutrition. Continue to monitor BUN/creatinine and monitor strict I's and O's, would nephrotoxins. Transaminitis Left upper quadrant fluid collection CT abdomen and pelvis ordered by hematology/oncology. DVT prophylaxis IV heparin Problem Qualifiers (1) Diabetes: (2) HTN (hypertension): Qualified Codes: I10 - Essential (primary) hypertension Jason De La Vega MD Feb 09, 2017 16:35
[2017-02-09 20:00] VITALS: BP 125/89; PULSE 125; PULSE 167; RESP 24; TEMP 98.6; O2SAT 98
[2017-02-09] MEDS: ATORVASTATIN 80 MG TAB PO SCH (21:03)
[2017-02-10] VITALS: BP 165/87; PULSE 83; RESP 24; TEMP 96.6; O2SAT 95
[2017-02-10] MEDS: RIFAMPIN 150 MG CAP PO SCH ×2 (03:25→18:50)
[2017-02-10] MEDS: METOCLOPRAMIDE HCL 10 MG/2 ML VIAL IV PUSH SCH ×3 (03:34→18:50)
[2017-02-10] MEDS: OXACILLIN INJ 2 GM in SODIUM CHLORIDE 0.9% INJ 100 ML IV SCH (03:35)
[2017-02-10 04:00] VITALS: BP 148/82; PULSE 87; RESP 22; TEMP 98.9; O2SAT 95
[2017-02-10] MEDS: DILTIAZEM HCL 30 MG TAB PO SCH ×3 (04:56→18:50)
[2017-02-10] MEDS: INSULIN NovoLIN REGULAR SUPPLEMENTAL SCALE SQ SCH ×3 (05:00→18:00)
[2017-02-10 05:57] LABS: AUTOMATED NEUTROPHIL # 13.8 TH/MM3 (1.8-7.7); BASOPHIL # 0.1 TH/MM3 (0-0.2); BASOPHIL % 0.5 % (0.0-2.0); EOSINOPHIL # 0.3 TH/MM3 (0-0.4); EOSINOPHIL % 1.9 % (0.0-4.0); HEMATOCRIT 26.7 % (39.0-51.0); HEMO FLAGS DIFF FINAL; LYMPH % 7.9 % (9.0-44.0); LYMPHOCYTE # 1.3 TH/MM3 (1.0-4.8); MEAN CELL VOLUME 90.5 FL (80.0-100.0); MEAN CORPUSCULAR HGB CONC 33.1 % (32.0-36.0); MONO % 7.3 % (0.0-8.0); NEUT % 82.4 % (16.0-70.0); PLATELET COUNT 214 TH/MM3 (150-450); RED BLOOD COUNT 2.95 MIL/MM3 (4.50-5.90); RED CELL DISTRIBUTION WIDTH 15.8 % (11.6-17.2); WHITE BLOOD COUNT 16.8 TH/MM3 (4.0-11.0)
[2017-02-10 08:00] VITALS: BP 153/82; PULSE 81; RESP 20; TEMP 97.4; O2SAT 98
[2017-02-10] MEDS: BISACODYL 10 MG SUPP RECTAL SCH (09:00)
--- NOTE | 2017-02-10 10:19 | HHI.HCPN ---
Reason for visit a. To assist with evaluation and management of symptoms including: pain, weakness. b. To assist medical decision maker(s) with: better understanding of current medical conditions; weighing benefits/burdens of medical treatment options; making medical treatment decisions. . Subjective/Interval History Patient has a Tmax of 100.5 am yesterday, but no fever since then. Labs today is pending. CT of abdomen pelvis on 02/08 indicate new bilateral iliopsoas abnormalities likely hematomas. There is bilateral pleural effusions and lower lobe atelectasis versus consolidation. CT of head showed old right sided infarcts, no acute findings. Liver ultrasound show left upper quadrant fluid. General surgery has been consulted and evaluated pt for hematomas and feel pt at this time surgery is not indicated and not recommended. General surgery recommends interventional drainage only if pt becomes symptomatic. Seen by psychiatry 02/09 who felt pt was capacitated to make medical decision at the time. Palliative care tried to engage pt in reviewing goals of care yesterday, but pt refused to engage and place covers on head. On my visit pt had is head under the covers again, but today he is cooperative with me and let me speak with him. Currently he denies pain on my visit. He confirm weakness, but not able to elaborate or give too much of a history. Effect remains flat. He is able to answer questions for me correctly, when ask if the rivas is blue? He would say yes. When I ask if grass color is pink, he would say no. He is alert to self, and to place. I explained to him some of his currrent medical condition especially some of the recent challenges with the hematomas and anemia, he is able to tell me when ask a little on what we have been talking about. He is able to say "Hematoma." We spoke about code status, life support and cpr. He did say he would want life support. When ask about trach and peg, he did not give an answer. Family/friend interactions I spoke to pt's brother today over telephone, review labs, current condition, various specialist visit including general surgery and psychiatry. Spoke to his brother about goals of care. Goals is aggressive. Advance Directives Living Will: Never completed Health Care Surrogate: Never completed Durable Power of [place]: Never completed Advance Directive Specifics Health Care Surrogate(s): Decision Maker: Patient deemed capacitated per psychiatry 02/09/17 to make his own health care decisions. Single. No children. Mother in a correction with underlying schizophrenia, not capacitated herself. Father . 2 sisters and one brother. 2 sisters, Lizeth and Alejandrina do not wish to serve as healthcare proxy decision makers. Therefore, healthcare proxy decision-making will fall to the patient's brother, Yareli Andrews, he has been willing to serve in this role. . Objective Vital Signs Date Time Temp Pulse Resp B/P (MAP) Pulse Ox O2 Delivery O2 Flow Rate FiO2 02/10/17 04:00 98.9 87 22 148/82 (104) 95 02/10/17 00:00 96.6 83 24 165/87 (113) 95 02/09/17 20:00 98.6 125 24 125/89 (101) 98 02/09/17 16:00 98.2 140 19 112/86 (95) 97 02/09/17 12:00 96.3 80 17 177/98 (124) 96 Intake & Output 02/10/17 02/10/17 07:00 19:00 Intake Total 540 ml Output Total 1300 ml Balance -760 ml Intake Oral 240 ml IV Total 300 ml Output Urine Total 1300 ml # Bowel Movements 0 Physical Exam CONSTITUTIONAL/GENERAL: This is an adequately nourished patient, not agitated today SKIN: Not diaphoretic. CARDIOVASCULAR: irregular, no murmur. RESPIRATORY/CHEST: Unlabored respirations on NC, decrease breath sound at the bases. GASTROINTESTINAL: Abdomen soft, nontender, distented. No guarding. Bowel sound normoactive GENITOURINARY: Condom catheter, no blader distention. MUSCULOSKELETAL: Old ambutation of right toe. 1+ Edema of lower ext bilaterally NEUROLOGICAL: awakens PSYCHIATRIC: flat effect . Diagnostic Tests Laboratory Laboratory Tests Test 02/08/17 05:57 02/08/17 18:35 02/09/17 00:53 02/10/17 04:50 White Blood Count 14.8 TH/MM3 (4.0-11.0) 15.8 TH/MM3 (4.0-11.0) 16.8 TH/MM3 (4.0-11.0) Red Blood Count 3.23 MIL/MM3 (4.50-5.90) 3.15 MIL/MM3 (4.50-5.90) 2.95 MIL/MM3 (4.50-5.90) Hemoglobin 9.4 GM/DL (13.0-17.0) 9.3 GM/DL (13.0-17.0) 8.8 GM/DL (13.0-17.0) Hematocrit 28.1 % (39.0-51.0) 27.7 % (39.0-51.0) 26.7 % (39.0-51.0) Mean Corpuscular Volume 87.0 FL (80.0-100.0) 87.9 FL (80.0-100.0) 90.5 FL (80.0-100.0) Mean Corpuscular Hemoglobin 29.2 PG (27.0-34.0) 29.7 PG (27.0-34.0) 30.0 PG (27.0-34.0) Mean Corpuscular Hemoglobin Concent 33.6 % (32.0-36.0) 33.7 % (32.0-36.0) 33.1 % (32.0-36.0) Red Cell Distribution Width 14.7 % (11.6-17.2) 15.2 % (11.6-17.2) 15.8 % (11.6-17.2) Platelet Count 224 TH/MM3 (150-450) 208 TH/MM3 (150-450) 214 TH/MM3 (150-450) Mean Platelet Volume 8.1 FL (7.0-11.0) 8.3 FL (7.0-11.0) 8.5 FL (7.0-11.0) Neutrophils (%) (Auto) 79.6 % (16.0-70.0) 79.4 % (16.0-70.0) 82.4 % (16.0-70.0) Lymphocytes (%) (Auto) 8.0 % (9.0-44.0) 9.0 % (9.0-44.0) 7.9 % (9.0-44.0) Monocytes (%) (Auto) 9.8 % (0.0-8.0) 9.3 % (0.0-8.0) 7.3 % (0.0-8.0) Eosinophils (%) (Auto) 2.2 % (0.0-4.0) 1.8 % (0.0-4.0) 1.9 % (0.0-4.0) Basophils (%) (Auto) 0.4 % (0.0-2.0) 0.5 % (0.0-2.0) 0.5 % (0.0-2.0) Neutrophils # (Auto) 11.8 TH/MM3 (1.8-7.7) 12.5 TH/MM3 (1.8-7.7) 13.8 TH/MM3 (1.8-7.7) Lymphocytes # (Auto) 1.2 TH/MM3 (1.0-4.8) 1.4 TH/MM3 (1.0-4.8) 1.3 TH/MM3 (1.0-4.8) Monocytes # (Auto) 1.5 TH/MM3 (0-0.9) 1.5 TH/MM3 (0-0.9) 1.2 TH/MM3 (0-0.9) Eosinophils # (Auto) 0.3 TH/MM3 (0-0.4) 0.3 TH/MM3 (0-0.4) 0.3 TH/MM3 (0-0.4) Basophils # (Auto) 0.1 TH/MM3 (0-0.2) 0.1 TH/MM3 (0-0.2) 0.1 TH/MM3 (0-0.2) CBC Comment DIFF FINAL DIFF FINAL DIFF FINAL Differential Comment Reticulocyte Count 2.3 % (0.4-3.0) Absolute Reticulocyte Count 73.5 MIL/L (20.0-150.0) Haptoglobin 131 MG/DL (30-200) Activated Partial Thromboplast Time 42.6 SEC (24.3-30.1) 44.1 SEC (24.3-30.1) Blood Urea Nitrogen 20 MG/DL (7-18) 19 MG/DL (7-18) Creatinine 1.72 MG/DL (0.60-1.30) 1.66 MG/DL (0.60-1.30) Random Glucose 134 MG/DL (74-106) 88 MG/DL (74-106) Total Protein 8.1 GM/DL (6.4-8.2) 7.8 GM/DL (6.4-8.2) Albumin 1.3 GM/DL (3.4-5.0) 1.2 GM/DL (3.4-5.0) Calcium Level 7.9 MG/DL (8.5-10.1) 8.1 MG/DL (8.5-10.1) Phosphorus Level 3.4 MG/DL (2.5-4.9) 3.8 MG/DL (2.5-4.9) Magnesium Level 1.5 MG/DL (1.5-2.5) 1.4 MG/DL (1.5-2.5) Alkaline Phosphatase 60 U/L (45-117) 68 U/L (45-117) Aspartate Amino Transf (AST/SGOT) 57 U/L (15-37) 54 U/L (15-37) Alanine Aminotransferase (ALT/SGPT) 8 U/L (12-78) 10 U/L (12-78) Lactate Dehydrogenase 284 U/L (87-241) 247 U/L (87-241) Total Bilirubin 0.9 MG/DL (0.2-1.0) 0.6 MG/DL (0.2-1.0) Sodium Level 136 MEQ/L (136-145) 137 MEQ/L (136-145) Potassium Level 4.6 MEQ/L (3.5-5.1) 4.6 MEQ/L (3.5-5.1) Chloride Level 106 MEQ/L (98-107) 106 MEQ/L (98-107) Carbon Dioxide Level 24.6 MEQ/L (21.0-32.0) 21.8 MEQ/L (21.0-32.0) Anion Gap 5 MEQ/L (5-15) 9 MEQ/L (5-15) Estimat Glomerular Filtration Rate 50 ML/MIN (>89) 52 ML/MIN (>89) Ammonia 22 MCMOL/L (11-32) Test 02/10/17 09:41 Result Diagram: 02/10/17 0450 02/09/17 0053 Imaging Last Impressions Liver Ultrasound 02/08/17 0000 Signed Impressions: Service Date/Time: Wednesday, February 08, 2017 07:11 - CONCLUSION: 1. Ultrasound suggests a left upper quadrant fluid collection which appears new relative to the prior CT. On up-to-date CT is suggested. 2. Right pleural effusion evident , not new. 3. Otherwise within normal limits. Scot Sung MD Head CT 02/08/17 0000 Signed Impressions: Service Date/Time: Wednesday, February 08, 2017 22:32 - CONCLUSION: Old right sided infarcts. No acute intracranial findings. Frederic Bermudez MD Abdomen/Pelvis CT 02/08/17 0000 Signed Impressions: Service Date/Time: Wednesday, February 08, 2017 22:27 - CONCLUSION: 1. New bilateral iliopsoas abnormalities likely representing iliopsoas hematomas. 2. Severe abdominal wall edema diffusely (anasarca). 3. Bilateral pleural effusions and lower lobe atelectasis versus consolidation. Frederic Bermudez MD Lower Extremity Ultrasound 02/04/17 0000 Signed Impressions: Service Date/Time: Saturday, February 04, 2017 07:41 - CONCLUSION: Normal examination. Jermaine Malone Jr., MD Abdomen X-Ray 01/25/17 0000 Signed Impressions: Service Date/Time: Wednesday, January 25, 2017 14:33 - CONCLUSION: Nonspecific, nonobstructive bowel gas pattern. Scot Sung MD Upper Extremity Ultrasound 01/23/17 0000 Signed Impressions: Service Date/Time: Monday, January 23, 2017 17:45 - CONCLUSION: Thrombus identified within the internal jugular, subclavian, and the basilic veins. Jeyson Luciano MD Chest X-Ray 01/21/17 0000 Signed Impressions: Service Date/Time: Saturday, January 21, 2017 22:42 - CONCLUSION: New hazy opacity in both lungs with concern for ovarian edema and congestive heart failure. Jose Espinal MD Renal Ultrasound 01/10/17 0000 Signed Impressions: Service Date/Time: Tuesday, January 10, 2017 17:01 - CONCLUSION: Normal examination. Jermaine Malone Jr., MD Assessment and Plan Disease Oriented Problem List: (1) Leukocytosis (2) Malnutrition (3) HTN (hypertension) (4) Atrial flutter (5) Acute metabolic encephalopathy (6) Acute on chronic kidney failure (7) Diabetes (8) Abdominal hematoma Comment: not a surgical candidate. surgery recommends drainage only if symptomatic. Symptom Scale: (1) Pain 0-10 Scale: 0 Comment: He denies pain today. (2) Weakness 0-10 Scale: Unable to quantify Comment: Secondary to prior CVA, left hemiparesis (3) Decreased appetite 0-10 Scale: Unable to quantify Comment: eating small amounts, lunch at bedside, non eaten. Pertinent Non-Medical Issues Psychosocial: Single. No children. Disabled. Brother, Isabela Andrews is serving as healthcare proxy decision maker per [place] statutes. Spiritual: Islam caroline. Legal:Decision Maker: Patient deemed capacitated per psychiatry 02/09/17 to make his own health care decisions. Single. No children. Mother in a correction with underlying schizophrenia, not capacitated herself. Father . 2 sisters and one brother. 2 sisters, Lizeth and Alejandrina do not wish to serve as healthcare proxy decision makers. Therefore, healthcare proxy decision-making will fall to the patient's brother, Yareli Andrews, he has been willing to serve in this role. Ethical issues impacting care: no known concerns at this time. . Important Contacts * Isabela Andrews, brother/HCP: [phone] * Nathalyryan Isaiah, ex sister in law ([place] ex- - who pt trusts): * Alta Andrews, sister opted out of HCP decision-making and [phone] * Alejandrina sifuentes, sister, opted out of HCP decision [phone] * Kylee Kendall, mother, incapacitated, in SNF . Prognosis Patient is a 56-year-old male with long history of noncompliance, refusing medication, questionable underlying psychiatric disease, admitted with acute on chronic renal failure, coronary artery disease, atrial fib/flutter refusing medications. Patient remains high risk for repeat hospitalization, further decline or even . Uncertain if patient has underlying psychiatric disease if this was treated would he be more readily open to taking medications. Will attempt to discuss with psychiatry. Family feels patient has had psychiatric issues since he was a child that were never diagnosed. . Code Status: Full Code Plan == Capacity- psychiatry deemed patient has capacity to make medical decisions. Psychiatry does note (02/09) that "decision-making capacity in the patient can fluctuation..." I agree with psych assessment. My assessment for patient today is at the very least pt can participate in his medical decision, but I suspect capacity to make decisions will continue to fluctuate on a daily basis. I would recommend that pt's brother, proxy remain notified and involved in making medical decisions and/or notify of pt's decisions regarding his care. I spoke with brother today, and he is aware that psych has deemed patient capacitated to make medical decision. He remains supportive and said "If you need me, I will be there." * Decision Maker: Pt is single. No children. Mother in a correction with underlying schizophrenia, not capacitated herself. Father . 2 sisters and one brother. 2 sisters, Lizeth and Alejandrina do not wish to serve as healthcare proxy decision makers. Therefore, healthcare proxy decision-making will fall to the patient's brother, Yareli Andrews, should he become incapacitated. * FULL CODE - DNR revoked by Yareli (HCP) on 01/23/17. Pt today02/10 endorsed a full code. He is unsure about trach or peg. * Goals remain aggressive. * SYMPTOMS: Pain: no obvious signs of pain during my visit. He denies pain on my visit. Weakness: debility due to prior stroke. * Palliative care will continue to follow throughout hospital course to assist with symptom management and clarification of goals as needed. . Attestation To help prompt me to consider important information that might be impacting today's encounter and assessment, information from prior notes written by myself or my colleagues may have been "brought forward" into today's note. My signature on this note, however, is an attestation that I personally performed the exam, history, and/or decision-making noted today, and, unless otherwise indicated, the interactions with patient, family, and staff as well as the review of records all occurred today. I also attest that the listed assessment and stated plan reflect my best clinical judgment today based on the combination of historical information, prior notes, and today's exam/ interactions. When time spent is documented, it refers only to time spent today by the signer, or if indicated, combined time spent today by collaborating physician/nurse practitioner. Reinaldo Escamilla MD Feb 10, 2017 10:19
[2017-02-10 10:35] LABS: ALT (GPT) 11 U/L (12-78); ANION GAP 8 MEQ/L (5-15); AST (GOT) 58 U/L (15-37); BICARBONATE 23.7 MEQ/L (21.0-32.0); BLOOD UREA NITROGEN 24 MG/DL (7-18); CHLORIDE 105 MEQ/L (98-107); GLOMERULAR FILTRATION RATE 49 ML/MIN (>89); MAGNESIUM 1.4 MG/DL (1.5-2.5); POTASSIUM 4.5 MEQ/L (3.5-5.1); SODIUM (NA) 137 MEQ/L (136-145)
[2017-02-10 10:38] LABS: ALKALINE PHOSPHATASE 55 U/L (45-117); TOTAL BILIRUBIN ADULT 0.5 MG/DL (0.2-1.0)
--- NOTE | 2017-02-10 11:00 | HHI.IDPN ---
Subjective Subjective Remarks Is a 56-year-old male with past medical history significant for chronic kidney disease baseline creatinine 1.8-2, type 2 diabetes, history of CVA with residual left patient is a 56-year-old male, admitted to the hospital complaining of generalized weakness and dizziness for about 1 week. He apparently lives in a [facility] and walks with a cane, and has left-sided weakness. There is mention that he had fallen a couple times due to the weakness. There is also mention that he was not having enough by mouth intake, as well as some diarrhea. He denies any abdominal pain, any nausea or vomiting. On initial presentation patient was found to be in atrial flutter with RVR. He also has significant acidosis, and has an elevated potassium and creatinine. Patient was seen by cardiology, and his echo showed normal EF. Patient also was seen by renal, and underwent emergency hemodialysis. His hemodynamics stabilized, and the hemodialysis has been stopped. He has good urine output. Patient has been refusing a lot of his treatment. His had some problem with nausea and vomiting. He has had on and off fevers which are low- grade, however in the last probably 4 days, his fevers have been more persistent. He is complaining of pain on the right side of his trunk. There is also mention that his left upper extremity is swollen. Patient has no central line. He has a condom catheter. Chest x-ray has shown a similar opacities bilaterally. Patient was started on antibiotics, and currently on AZT mycin, cefepime, and vancomycin. Infectious disease consultation has been requested to evaluate the patient. Notes reviewed Found to have malissa retroperitoneal hematoma His Hgb dropped to 4.9 02/07, received 9 units PRBC, went uo to 9.3, now down to 8.8 Low grade temps 01/29 Not cooperative with PT Being evaluated for SNF LIGIA negative for endocarditis BC (+) 01/22-01/29 BC 01/31, 02/01 negative CReatinine stable BP ok Has thrombus in LUE as well as in his LIJ, and LSC Antibiotics Oxacillin Rifampin Lines PIV Past Medical History Chronic kidney disease Type 2 diabetes Hypertension Dyslipidemia Previous stroke, with residual L weakness Atrial fibrillation/flutter CAD History of PUD Past Surgical History Throat and arm surgery Allergies: Coded Allergies: No Known Allergies (Unverified , 01/07/17) Objective . Vital Signs Date Time Temp Pulse Resp B/P (MAP) Pulse Ox O2 Delivery O2 Flow Rate FiO2 02/10/17 04:00 98.9 87 22 148/82 (104) 95 02/10/17 00:00 96.6 83 24 165/87 (113) 95 02/09/17 20:00 98.6 125 24 125/89 (101) 98 02/09/17 16:00 98.2 140 19 112/86 (95) 97 02/09/17 12:00 96.3 80 17 177/98 (124) 96 . Laboratory Tests Test 02/09/17 00:53 02/10/17 04:50 White Blood Count 15.8 TH/MM3 16.8 TH/MM3 Red Blood Count 3.15 MIL/MM3 2.95 MIL/MM3 Hemoglobin 9.3 GM/DL 8.8 GM/DL Hematocrit 27.7 % 26.7 % Mean Corpuscular Volume 87.9 FL 90.5 FL Mean Corpuscular Hemoglobin 29.7 PG 30.0 PG Mean Corpuscular Hemoglobin Concent 33.7 % 33.1 % Red Cell Distribution Width 15.2 % 15.8 % Platelet Count 208 TH/MM3 214 TH/MM3 Mean Platelet Volume 8.3 FL 8.5 FL Neutrophils (%) (Auto) 79.4 % 82.4 % Lymphocytes (%) (Auto) 9.0 % 7.9 % Monocytes (%) (Auto) 9.3 % 7.3 % Eosinophils (%) (Auto) 1.8 % 1.9 % Basophils (%) (Auto) 0.5 % 0.5 % Neutrophils # (Auto) 12.5 TH/MM3 13.8 TH/MM3 Lymphocytes # (Auto) 1.4 TH/MM3 1.3 TH/MM3 Monocytes # (Auto) 1.5 TH/MM3 1.2 TH/MM3 Eosinophils # (Auto) 0.3 TH/MM3 0.3 TH/MM3 Basophils # (Auto) 0.1 TH/MM3 0.1 TH/MM3 CBC Comment DIFF FINAL DIFF FINAL Differential Comment Laboratory Tests Test 02/08/17 18:35 02/09/17 00:53 02/10/17 09:41 Ammonia 22 MCMOL/L Blood Urea Nitrogen 19 MG/DL 24 MG/DL Creatinine 1.66 MG/DL 1.74 MG/DL Random Glucose 88 MG/DL 143 MG/DL Total Protein 7.8 GM/DL 8.2 GM/DL Albumin 1.2 GM/DL 1.2 GM/DL Calcium Level 8.1 MG/DL 8.0 MG/DL Phosphorus Level 3.8 MG/DL 3.7 MG/DL Magnesium Level 1.4 MG/DL 1.4 MG/DL Alkaline Phosphatase 68 U/L 55 U/L Aspartate Amino Transf (AST/SGOT) 54 U/L 58 U/L Alanine Aminotransferase (ALT/SGPT) 10 U/L 11 U/L Lactate Dehydrogenase 247 U/L Total Bilirubin 0.6 MG/DL 0.5 MG/DL Sodium Level 137 MEQ/L 137 MEQ/L Potassium Level 4.6 MEQ/L 4.5 MEQ/L Chloride Level 106 MEQ/L 105 MEQ/L Carbon Dioxide Level 21.8 MEQ/L 23.7 MEQ/L Anion Gap 9 MEQ/L 8 MEQ/L Estimat Glomerular Filtration Rate 52 ML/MIN 49 ML/MIN Imaging Last Impressions Abdomen X-Ray 01/25/17 0000 Signed Impressions: Service Date/Time: Wednesday, January 25, 2017 14:33 - CONCLUSION: Nonspecific, nonobstructive bowel gas pattern. Scot Sung MD Upper Extremity Ultrasound 01/23/17 0000 Signed Impressions: Service Date/Time: Monday, January 23, 2017 17:45 - CONCLUSION: Thrombus identified within the internal jugular, subclavian, and the basilic veins. Jeyson Luciano MD Chest X-Ray 01/21/17 0000 Signed Impressions: Service Date/Time: Saturday, January 21, 2017 22:42 - CONCLUSION: New hazy opacity in both lungs with concern for ovarian edema and congestive heart failure. Jose Espinal MD Head CT 01/10/17 1257 Signed Impressions: Service Date/Time: Tuesday, January 10, 2017 13:32 - CONCLUSION: No acute disease. Jermaine Malone Jr., MD Renal Ultrasound 01/10/17 0000 Signed Impressions: Service Date/Time: Tuesday, January 10, 2017 17:01 - CONCLUSION: Normal examination. Jermaine Malone Jr., MD Physical Exam GENERAL: Awake and alert, not in respiratory distress. SKIN: Warm and dry. No generalized rash, no ecchymoses and no evidence of embolic lesions. HEAD: Atraumatic. Normocephalic. No temporal wasting, or tenderness. EYES: [place] conjunctiva. No petechia or hemorrhage. Pupils equal, round and reactive to light. Extraocular movements full and intact. No scleral icterus. No injection or drainage. EARS, NOSE AND THROAT: Nose without bleeding or purulent nasal discharge. No sinus tenderness. Moist mucosa NECK: Trachea midline. Supple and not tender, no meningeal signs. Previous vascath site looks ok, dry CARDIOVASCULAR: Tachycardic, irregular rate and rhythm. No murmurs, rubs or gallops heard RESPIRATORY: Clear to auscultation. Breath sounds equal bilaterally. Decreased at the bases ABDOMEN: Soft, Not tender, not distended. No guarding or rebound. Bowel sounds present and normoactive. No organomegaly. EXTREMITIES: min BLE edema, no cyanosis. LUE is swollen NEUROLOGICAL: Awake and alert. L side plegic PSYCHIATRIC: calm, cooperative this morning LINE: No evidence of infection Assessment & Plan Remarks IMPRESSION Sepsis with MSSA - had vascath placed 01/10, removed 01/15 - has DVT LUE including LIJ and LSC, and previously had vascath and suspicious for infected thrombophlebitis - has basilar opacities, ?fluid; not coughing or congested, less likely PNA - BC still (+) Renal failure, creatinine has improved and has good UO Previous CVA with left sided weakness Atrial fib with RVR Leukocytosis, stable Low grade temps prob due to hematoma PLAN Discussed with CM - problem with placement due to cost of Oxacillin and Rifampin Since BC have been negative, I will switch to IV Ancef Keep on Rifampin while in the hospital Follow temps He will need 6 weeks IV Abx from date of last (+) BC - if no other new (+) BC, anticipated end date is Mar 11 Labs while on Abx: CBC, creat, If no fever, will place PICC tomorrow - I D/W renal, ok for PICC on this patient Monitor progress Kimi Quintana MD Feb 10, 2017 11:00
[2017-02-10 11:02] LABS: APTT (PATIENT) 36.3 SEC (24.3-30.1)
[2017-02-10] MEDS: SODIUM CHLORIDE 0.9% FLUSH 10 ML FLUSH IV FLUSH SCH ×2 (11:51→21:33)
[2017-02-10] MEDS: INSULIN DETEMIR 100 UNITS/ML VIAL SQ SCH ×2 (11:52→21:42)
[2017-02-10] MEDS: CALCIUM CARBONATE 1.25 GM (CA 500 MG) TAB PO SCH ×3 (11:52→18:50)
[2017-02-10] MEDS: ASPIRIN EC 81 MG TABEC PO SCH (11:53)
[2017-02-10] MEDS: DOCUSATE SODIUM 50 MG/SENNA 8.6 MG TAB PO SCH ×2 (11:53→21:00)
[2017-02-10] MEDS: METOPROLOL TARTRATE 50 MG TAB PO SCH ×2 (11:54→21:32)
[2017-02-10] MEDS: BUMETANIDE INJ 1 MG/4 ML VIAL IV PUSH SCH ×2 (11:55→18:50)
--- NOTE | 2017-02-10 11:58 | HHI.FF ---
Infusion Therapy Location of Infusion Therapy: [facility] Infusion Therapy Order Patient Information Patient Weight 114.3 kg Diagnosis: Diagnosis MSSA sepsis Septic thrombophlebitis LUE Coded Allergies: No Known Allergies (Unverified , 01/07/17) Administer Medication Cefazolin 1 gram IV q 8 hours Stop Treatment: Mar 11, 2017 Additional Information Venous access: PICC Line Additional Instructions [x] Peripheral flush and dressing changes per protocol [x] Implanted port and central production line mechanic: * Implanted port: 10 ml Normal Saline followed by 5 ml Heparin 100 units/ml Heparin flush after each use and monthly to maintain. [] May leave port accessed during therapy. [] May leave peripheral site accessed for duration of therapy. [x] If patient has SOB or respiratory distress, check oxygen saturation. If less than 90% or clinical signs of respiratory distress, administer oxygen at 2 L/min. via nasal cannula and notify physician. [x] Anaphylaxis/Reaction orders: * Stop infusion. * Keep IV line open with saline flush. * Notify physician. * Monitor vital signs every 15 minutes until symptoms resolve. * Check Oxygen saturation; Oxygen at 2 L/min. via nasal cannula if less than 90% or clinical signs of respiratory distress. * Administer diphenhydramine (Benadryl) 25 mg IV STAT, (unless patient has received as pre-med). May repeat once, if necessary. * Solu-Cortef 250 mg IVP over 30-60 seconds, use 100 mg vials for each dissolution. * Epinephrine (1mg/1 ml) 0.3 mg subcutaneously or IVP now with any signs of respiratory distress. * Check with physician for new additional pre-med orders if patient is re- challenged or re-treated. [x] May remove PICC line when treatment complete, after confirming with Physician. [x] If the patient is admitted to the hospital, the ED, or transferred via [facility] , complete transfer form including medication reconciliation order sheet. Laboratory Tests Weekly Labs: CBC w/diff, Creatinine, LFT's (Hepatic function test) (Labs every Thursday) Kimi Quintana MD Feb 10, 2017 11:58
[2017-02-10 12:00] VITALS: BP_SYST 97; PULSE 82; RESP 18; O2SAT 100
[2017-02-10] MEDS: AMIODARONE 200 MG TAB PO SCH (12:04)
[2017-02-10] MEDS: guaiFENesin E.R. 600 MG TAB PO SCH ×2 (12:09→21:32)
[2017-02-10] MEDS: POTASSIUM PHOSPHATE MONOBASIC 500 MG TAB PO SCH ×2 (12:09→21:32)
[2017-02-10] MEDS: QUEtiapine FUMARATE 25 MG TAB PO SCH ×2 (12:11→21:34)
[2017-02-10] MEDS: NYSTATIN 100,000 U/GM PWD 15 GM BTL TOPICAL SCH ×2 (12:18→21:33)
--- NOTE | 2017-02-10 13:26 | HHI.PR ---
Subjective Remarks Patient is more awake and conversant today. Seems less confused. Denies cp/sob wbc trending up no fevers since yesterday morning Objective Vitals Vital Signs Date Time Temp Pulse Resp B/P (MAP) Pulse Ox O2 Delivery O2 Flow Rate FiO2 02/10/17 12:00 82 18 97/ 100 02/10/17 08:00 97.4 81 20 153/82 (105) 98 02/10/17 04:00 98.9 87 22 148/82 (104) 95 02/10/17 00:00 96.6 83 24 165/87 (113) 95 02/09/17 20:00 98.6 125 24 125/89 (101) 98 02/09/17 16:00 98.2 140 19 112/86 (95) 97 I/O 02/09/17 02/09/17 02/09/17 02/10/17 02/10/17 02/10/17 07:00 15:00 23:00 07:00 15:00 23:00 Intake Total 491 ml 450 ml 690 ml 440 ml Output Total 850 ml 2900 ml 1300 ml Balance -359 ml 450 ml -2210 ml -860 ml Intake Oral 240 ml 480 ml 240 ml IV Total 251 ml 450 ml 210 ml 200 ml Output Urine Total 850 ml 2900 ml 1300 ml # Bowel Movements 0 0 Result Diagram: 02/10/17 0450 02/10/17 0941 Imaging Last 72 hours Impressions Liver Ultrasound 02/08/17 0000 Signed Impressions: Service Date/Time: Wednesday, February 08, 2017 07:11 - CONCLUSION: 1. Ultrasound suggests a left upper quadrant fluid collection which appears new relative to the prior CT. On up-to-date CT is suggested. 2. Right pleural effusion evident , not new. 3. Otherwise within normal limits. Scot Sung MD Head CT 02/08/17 0000 Signed Impressions: Service Date/Time: Wednesday, February 08, 2017 22:32 - CONCLUSION: Old right sided infarcts. No acute intracranial findings. Frederic Bermudez MD Abdomen/Pelvis CT 02/08/17 0000 Signed Impressions: Service Date/Time: Wednesday, February 08, 2017 22:27 - CONCLUSION: 1. New bilateral iliopsoas abnormalities likely representing iliopsoas hematomas. 2. Severe abdominal wall edema diffusely (anasarca). 3. Bilateral pleural effusions and lower lobe atelectasis versus consolidation. Frederic Bermudez MD Objective Remarks GENERAL: Patient seems more alert , follows commands SKIN: Warm and dry. HEAD: Atraumatic. Normocephalic. EYES: Pupils equal and round. No scleral icterus. No injection or drainage. EOMI ENT: No nasal bleeding or discharge. Mucous membranes pink and moist. TONGUE IS MIDLINE NECK: Trachea midline. No JVD. SUPPLE CARDIOVASCULAR: IRRegular rate and rhythm. S1, S2 NO S3 OR S4 RESPIRATORY: No accessory muscle use. Clear to auscultation. Breath sounds equal bilaterally. GASTROINTESTINAL: Abdomen soft, non-tender, nondistended. Hepatic and splenic margins not palpable. MUSCULOSKELETAL: Extremities without clubbing, cyanosis, or edema. No obvious deformities. NEUROLOGICAL: Awake and alert. No obvious cranial nerve deficits. Motor grossly within normal limits. Five out of 5 muscle strength in the arms and legs ON RIGHT 4/4 ON LEFT SIDE. Normal speech. PSYCHIATRIC: Appropriate mood and affect; insight and judgment normal.SOME CONFUSION Procedures LIGIA Medications and IVs Current Medications Medications (Trade) Dose Ordered Sig/Mansi Route Start Time Stop Time Status Last Admin (Tylenol) 650 mg Q6H PRN PO 01/10/17 17:00 02/01/17 00:12 (Proair Hfa Inh) 2 puff Q6H PRN INH 01/10/17 17:00 (Lipitor) 80 mg HS PO 01/10/17 21:00 02/09/17 21:03 (Nitrostat Sl) 0.4 mg Q3H PRN SL 01/10/17 17:00 (Ecotrin Ec) 81 mg DAILY PO 01/10/17 17:00 02/10/17 11:53 (NS Flush) 2 ml BID IV FLUSH 01/10/17 21:00 02/10/17 11:51 Miscellaneous Information 1 Q361D XX 01/10/17 17:15 (Chlorhexidine 2% Cloth) Taper DAILY@04 TOP 01/11/17 04:00 01/07/18 03:59 02/04/17 05:28 (Chlorhexidine 2% Cloth) 3 pack UNSCH PRN TOP 01/10/17 17:15 (Afia-Colace) 1 tab BID PO 01/10/17 21:00 02/10/17 11:53 (Milk Of Magnesia Liq) 30 ml Q12H PRN PO 01/10/17 17:15 02/04/17 08:51 (Senokot) 17.2 mg Q12H PRN PO 01/10/17 17:15 (Dulcolax Supp) 10 mg DAILY PRN RECTAL 01/10/17 17:15 (Lactulose Liq) 30 ml DAILY PRN PO 01/10/17 17:15 02/04/17 08:51 Dexmedetomidine HCl 200 mcg/ Sodium Chloride 52 ml @ 5.46 mls/hr TITRATE PRN IV 01/11/17 00:00 01/12/17 14:53 (Haldol Inj) 5 mg Q4H PRN IV 01/12/17 17:00 02/07/17 19:36 (Reglan Inj) 5 mg Q8H IV PUSH 01/15/17 10:00 02/10/17 11:55 (Apresoline Inj) 10 mg Q4H PRN IV PUSH 01/15/17 10:00 02/07/17 13:10 Potassium Chloride 100 ml @ 50 mls/hr Q2H IV 01/15/17 10:00 Future Hold 01/16/17 06:11 (Catapres-Tts 0.3 Mg Patch.7d) 1 patch Q7D T-DERMAL 01/16/17 10:00 02/06/17 09:10 Miscellaneous Information 1 Q7D T-DERMAL 01/16/17 10:00 02/06/17 09:10 (Mucinex Er) 600 mg BID PO 01/16/17 21:00 02/10/17 12:09 (Oscal) 500 mg TID PO 01/17/17 13:00 02/10/17 11:52 (K-Phos) 500 mg Q12HR PO 01/17/17 14:00 02/10/17 12:09 (SEROquel) 25 mg BID PO 01/17/17 21:00 02/10/17 12:11 (Trandate Inj) 10 mg Q4H PRN IV PUSH 01/20/17 08:30 01/20/17 17:27 (Levemir Inj) 5 units Q12HR SQ 01/23/17 09:00 02/10/17 11:52 (Dilaudid Pf Inj) 0.5 mg Q4HR PRN IV PUSH 01/23/17 14:45 02/07/17 23:00 (Dilaudid Pf Inj) 0.75 mg Q4HR PRN IV PUSH 01/23/17 14:45 02/06/17 16:48 Heparin Sodium/ Dextrose 250 ml @ 18 mls/hr TITRATE PRN IV 01/24/17 12:00 Future Hold 02/09/17 12:47 (D50w (Vial) Inj) 25 ml UNSCH PRN IV PUSH 01/24/17 16:00 (NovoLIN R SUPPLEMENTAL SCALE) 1 Q6HR SQ 01/24/17 18:00 02/05/17 00:41 (Rifampin) 300 mg Q12H PO 01/28/17 14:00 02/10/17 03:25 (Lopressor) 100 mg BID PO 01/29/17 21:00 02/10/17 11:54 (Cardizem) 30 mg Q6HR PO 01/30/17 12:00 02/10/17 11:52 (Mycostatin Powder) 1 applic Q12HR TOPICAL 02/03/17 21:00 02/10/17 12:18 (Dulcolax Supp) 10 mg DAILY RECTAL 02/05/17 12:00 02/07/17 08:24 (Cordarone) 400 mg DAILY PO 02/06/17 10:00 02/10/17 12:04 (Bumex Inj) 1 mg BID@09,18 IV PUSH 02/09/17 09:00 02/10/17 11:55 Cefazolin Sodium 1000 mg/Sodium Chloride 100 ml @ 200 mls/hr Q8H IV 02/10/17 12:00 02/10/17 11:52 Urinary Catheter: No Vascular Central Line Catheter: No A/P Problem List: (1) Acute on chronic kidney failure ICD Code: N17.9 - Acute kidney failure, unspecified; N18.9 - Chronic kidney disease, unspecified (2) Combined metabolic and respiratory acidosis (3) Acute metabolic encephalopathy ICD Code: G93.41 - Metabolic encephalopathy (4) NSTEMI (non-ST elevated myocardial infarction) ICD Code: I21.4 - Non-ST elevation (NSTEMI) myocardial infarction (5) Hyperkalemia ICD Code: E87.5 - Hyperkalemia Status: Acute (6) Metabolic acidemia ICD Code: E87.2 - Acidosis (7) History of CVA (cerebrovascular accident) ICD Code: Z86.73 - Personal history of transient ischemic attack (TIA), and cerebral infarction without residual deficits Status: Chronic (8) Diabetes ICD Code: E11.9 - Type 2 diabetes mellitus without complications Status: Acute (9) HTN (hypertension) ICD Code: I10 - Essential (primary) hypertension Status: Chronic Assessment and Plan 56-year-old male admitted secondary to bacteremia, fever, A. fib RVR, left arm DVT, encephalopathy. Labs reviewed. Hemoglobin level dropped. 2 units packed red blood cells transfused 02/01/17. Calcium level is low and supplementation provided. Continue to monitor renal function and white blood cell count. Labs ordered for further monitoring Severe Anemia Iliopsoas hematoma The patient is status post transfusion of a total of 9 units of packed blood cells. Hematology has been consulted for evaluation of hemolytic anemia, however patient has haptoglobin and reticulocyte count within normal limits, bilirubin within normal limits and LDH mildly elevated. Ultrasound the liver shows left upper quadrant fluid collection. GI consulted, offered EGD/colonoscopy but patient refused. CT abdomen and pelvis obtained on 02/08/17 showed iliopsoas hematoma. Gen. surgery consulted and recommended conservative management and discontinuation of IV heparin was patient was having for an acute upper extremity DVT. Acute Metabolic Encephalopathy Agitated Delirium History of Previous CVA with left hemiparesis Delirium The patient seems to be confused - check head CT Last ammonia level checked on 02/01 normal. 02/09 discussed case with psychiatry - Patient is able to make medical decisions at this time and is competent. Severe combined Metabolic and respiratory acidosis Resolved Continue bronchodilators Continue incentive spirometry Continue mucolytic A flutter/fibrillation with RVR Elevated troponin Coronary artery disease By mouth Cardizem continued-SWITCH OFF IV Continue metoprolol Cardiology following STARTED ON AMIODARONE DRIP 02-05 SWITCHED TO PO AMIODARONE 400MG PO DAILY 02/10 Rate controlled. NO anticoagulation due to BL psoas hematoma. Left upper extremity DVT Started on IV heparin Follow clinically Heparin discontinued on 02/09 due to acute drop in hemoglobin and iliopsoas hematomas. Diabetes mellitus type 2 Blood sugar seems to be stable. Continue SSI with insulin NovoLog. Diabetic diet. Sepsis Resolved MSSA bacteremia - had vascath placed 01/10, removed 01/15 - has DVT LUE including LIJ and LSC, and previously had vascath and suspicious for infected thrombophlebitis - has basilar opacities, ?fluid; not coughing or congested, less likely PNA - BC still (+) - Negative LIGIA Since BC have been negative, ID switched to IV Ancef Keep on Rifampin while in the hospital Follow temps He will need 6 weeks IV Abx from date of last (+) BC - if no other new (+) BC, anticipated end date is Mar 11 Labs while on Abx: CBC, creat, If no fever, will place PICC tomorrow - ID D/W renal, ok for PICC on this patient Acute kidney injury Anasarca. Patient has chronic kidney disease and develop ABNER. Also had metabolic acidosis and Hyperkalemia. Patient has HD 1 session then ARF resolved ATN resolving 02/10 started on IV Bumex 1 mg IV BID for anasarca. Continue. Monitor BUN and creatinine, strict I's and O's, avoid nephrotoxins. Creatinine seems stable at 1.7. Transaminitis Left upper quadrant fluid collection CT abdomen and pelvis shows new bilateral iliopsoas hematomas. Severe abdominal wall edema diffusely (anasarca). Bilateral pleural effusions and lower lobe atelectasis versus consolidation. Continue to monitor liver function tests, transaminitis is stable with an increased AST of 58. DVT prophylaxis IV heparin Discharge Planning Pending Picc placement, hemoglobin stabilization, ID clearance. Problem Qualifiers (1) Diabetes: (2) HTN (hypertension): Qualified Codes: I10 - Essential (primary) hypertension Jason De La Vega MD Feb 10, 2017 13:26
[2017-02-10] MEDS: MAGNESIUM SULFATE 1 GM PREMIX 100 ML IV SCH ×2 (15:54→18:49)
[2017-02-10 16:00] VITALS: BP 135/81; PULSE 85; RESP 18; TEMP 97; O2SAT 97
[2017-02-10 20:21] VITALS: BP 129/87; PULSE 89; RESP 20; TEMP 97.9; O2SAT 96
[2017-02-10] MEDS: ATORVASTATIN 80 MG TAB PO SCH (21:32)
[2017-02-11 00:43] VITALS: BP 133/69; PULSE 92; RESP 21; TEMP 97.9; O2SAT 97
[2017-02-11] MEDS: METOCLOPRAMIDE HCL 10 MG/2 ML VIAL IV PUSH SCH ×2 (00:43→11:17)
[2017-02-11] MEDS: DILTIAZEM HCL 30 MG TAB PO SCH ×3 (00:43→11:20)
[2017-02-11] MEDS: RIFAMPIN 150 MG CAP PO SCH ×2 (00:43→14:48)
[2017-02-11] MEDS: CHLORHEXIDINE GLUCONATE 2 % 1 PACK (2 CLOTHS) TOP SCH (04:00)
[2017-02-11 04:56] VITALS: O2SAT 96
[2017-02-11] MEDS: INSULIN NovoLIN REGULAR SUPPLEMENTAL SCALE SQ SCH ×3 (05:33→11:26)
[2017-02-11 07:01] LABS: AUTOMATED NEUTROPHIL # 13.7 TH/MM3 (1.8-7.7); BASOPHIL # 0.1 TH/MM3 (0-0.2); BASOPHIL % 0.4 % (0.0-2.0); EOSINOPHIL # 0.3 TH/MM3 (0-0.4); HEMATOCRIT 25.4 % (39.0-51.0); HEMO FLAGS DIFF FINAL; LYMPH % 7.4 % (9.0-44.0); LYMPHOCYTE # 1.2 TH/MM3 (1.0-4.8); MEAN CELL VOLUME 88.7 FL (80.0-100.0); MEAN CORPUSCULAR HEMOGLOBIN 29.4 PG (27.0-34.0); MEAN CORPUSCULAR HGB CONC 33.1 % (32.0-36.0); MONO % 7.7 % (0.0-8.0); NEUT % 82.5 % (16.0-70.0); PLATELET COUNT 218 TH/MM3 (150-450); RED BLOOD COUNT 2.87 MIL/MM3 (4.50-5.90); RED CELL DISTRIBUTION WIDTH 15.7 % (11.6-17.2); WHITE BLOOD COUNT 16.6 TH/MM3 (4.0-11.0)
[2017-02-11 07:10] LABS: ALT (GPT) 9 U/L (12-78); ANION GAP 7 MEQ/L (5-15); AST (GOT) 49 U/L (15-37); BICARBONATE 24.6 MEQ/L (21.0-32.0); BLOOD UREA NITROGEN 25 MG/DL (7-18); CHLORIDE 105 MEQ/L (98-107); GLOMERULAR FILTRATION RATE 49 ML/MIN (>89); MAGNESIUM 1.6 MG/DL (1.5-2.5); SODIUM (NA) 137 MEQ/L (136-145)
[2017-02-11 07:12] LABS: ALKALINE PHOSPHATASE 55 U/L (45-117); TOTAL BILIRUBIN ADULT 0.8 MG/DL (0.2-1.0)
[2017-02-11 08:00] VITALS: BP 135/75; PULSE 81; RESP 20; TEMP 98.2; O2SAT 97
[2017-02-11] MEDS: DOCUSATE SODIUM 50 MG/SENNA 8.6 MG TAB PO SCH (09:00)
[2017-02-11] MEDS: BISACODYL 10 MG SUPP RECTAL SCH (09:00)
[2017-02-11] MEDS: SODIUM CHLORIDE 0.9% FLUSH 10 ML FLUSH IV FLUSH SCH (09:29)
[2017-02-11] MEDS: BUMETANIDE INJ 1 MG/4 ML VIAL IV PUSH SCH (09:32)
[2017-02-11] MEDS: guaiFENesin E.R. 600 MG TAB PO SCH (09:34)
[2017-02-11] MEDS: POTASSIUM PHOSPHATE MONOBASIC 500 MG TAB PO SCH (09:34)
[2017-02-11] MEDS: CALCIUM CARBONATE 1.25 GM (CA 500 MG) TAB PO SCH ×2 (09:35→14:49)
[2017-02-11] MEDS: AMIODARONE 200 MG TAB PO SCH (09:35)
[2017-02-11] MEDS: METOPROLOL TARTRATE 50 MG TAB PO SCH (09:37)
[2017-02-11] MEDS: ASPIRIN EC 81 MG TABEC PO SCH (09:37)
[2017-02-11] MEDS: INSULIN DETEMIR 100 UNITS/ML VIAL SQ SCH (09:38)
[2017-02-11] MEDS: QUEtiapine FUMARATE 25 MG TAB PO SCH (09:47)
[2017-02-11] MEDS: NYSTATIN 100,000 U/GM PWD 15 GM BTL TOPICAL SCH (09:52)
[2017-02-11 12:00] VITALS: BP 135/84; PULSE 116; RESP 20; TEMP 98.8; O2SAT 100
[2017-02-11 12:48] LABS: APTT (PATIENT) 27.9 SEC (24.3-30.1)
[2017-02-11] MEDS ORDERED: DILT31TA PO (14:03)
[2017-02-11] MEDS ORDERED: SERO25TA PO (14:03)
[2017-02-11] MEDS ORDERED: AMIO200T PO (14:03)
[2017-02-11] MEDS ORDERED: BUME1TAB PO (14:03)
[2017-02-11] MEDS ORDERED: CLON.3T T-DERMAL (14:03)
[2017-02-11] MEDS ORDERED: ECASA81 PO (14:03)
[2017-02-11] MEDS ORDERED: METO-309 PO (14:03)
--- NOTE | 2017-02-11 14:04 | HHI.DS ---
Discharge Summary Admission Date Jan 10, 2017 at 16:57 Discharge Date: Feb 12, 2017 Admitting Diagnosis (1) Acute on chronic kidney failure ICD Code: N17.9 - Acute kidney failure, unspecified; N18.9 - Chronic kidney disease, unspecified (2) Combined metabolic and respiratory acidosis (3) Acute metabolic encephalopathy ICD Code: G93.41 - Metabolic encephalopathy (4) NSTEMI (non-ST elevated myocardial infarction) ICD Code: I21.4 - Non-ST elevation (NSTEMI) myocardial infarction (5) Hyperkalemia ICD Code: E87.5 - Hyperkalemia Status: Acute (6) Metabolic acidemia ICD Code: E87.2 - Acidosis (7) History of CVA (cerebrovascular accident) ICD Code: Z86.73 - Personal history of transient ischemic attack (TIA), and cerebral infarction without residual deficits Status: Chronic (8) Diabetes ICD Code: E11.9 - Type 2 diabetes mellitus without complications Status: Acute (9) HTN (hypertension) ICD Code: I10 - Essential (primary) hypertension Status: Chronic Procedures LIGIA Brief History - From Admission History of present illness from the admitting physician 56-year-old male with past medical history significant for chronic kidney disease baseline creatinine 1.8-2, type 2 diabetes, history of CVA with residual left hemiparesis, history of coronary artery disease, hypertension, atrial fibrillation, who presented to the emergency department with generalized weakness and dizziness going on for 1 week. He lives in a correction and walks with a cane due to previous stroke and hemiparesis. He states that he had at least a couple falls due to weakness. He admits to not drinking enough water and for the last 2 days was probably having diarrhea as well. Denies abdominal pain nausea or vomiting. ER evaluation showed severe acute on chronic kidney failure, hyperkalemia and severe metabolic acidosis. Patient's potassium was 6.5 bicarbonate was 10, BUN 19 and creatinine of 10. Troponin was 2.2. Patient received calcium, IV insulin followed by D50, IV bicarbonate for hyperkalemia I evaluated the patient in the ED. He is tachycardic in atrial flutter and EKG shows significant left anterolateral ischemic changes. Patient is lethargic but wakes up easily and communicates. A stat ABG shows a pH of 7.12 PCO2 of 30 PO2 of 107 base excess of -18. I have requested 2 A of bicarbonate stat, and increased bicarbonate infusion 150 ML per hour. Patient will need emergency dialysis for severe acidemia and hyperkalemia. I have discussed with Dr. Jiang. [facility] CBC/BMP: 02/11/17 0545 02/11/17 0545 Significant Findings Laboratory Tests Test 02/08/17 18:35 02/09/17 00:53 02/10/17 04:50 02/10/17 09:41 White Blood Count 15.8 TH/MM3 (4.0-11.0) 16.8 TH/MM3 (4.0-11.0) Red Blood Count 3.15 MIL/MM3 (4.50-5.90) 2.95 MIL/MM3 (4.50-5.90) Hemoglobin 9.3 GM/DL (13.0-17.0) 8.8 GM/DL (13.0-17.0) Hematocrit 27.7 % (39.0-51.0) 26.7 % (39.0-51.0) Neutrophils (%) (Auto) 79.4 % (16.0-70.0) 82.4 % (16.0-70.0) Monocytes (%) (Auto) 9.3 % (0.0-8.0) Neutrophils # (Auto) 12.5 TH/MM3 (1.8-7.7) 13.8 TH/MM3 (1.8-7.7) Monocytes # (Auto) 1.5 TH/MM3 (0-0.9) 1.2 TH/MM3 (0-0.9) Activated Partial Thromboplast Time 44.1 SEC (24.3-30.1) Blood Urea Nitrogen 19 MG/DL (7-18) 24 MG/DL (7-18) Creatinine 1.66 MG/DL (0.60-1.30) 1.74 MG/DL (0.60-1.30) Albumin 1.2 GM/DL (3.4-5.0) 1.2 GM/DL (3.4-5.0) Calcium Level 8.1 MG/DL (8.5-10.1) 8.0 MG/DL (8.5-10.1) Magnesium Level 1.4 MG/DL (1.5-2.5) 1.4 MG/DL (1.5-2.5) Aspartate Amino Transf (AST/SGOT) 54 U/L (15-37) 58 U/L (15-37) Alanine Aminotransferase (ALT/SGPT) 10 U/L (12-78) 11 U/L (12-78) Lactate Dehydrogenase 247 U/L (87-241) Estimat Glomerular Filtration Rate 52 ML/MIN (>89) 49 ML/MIN (>89) Lymphocytes (%) (Auto) 7.9 % (9.0-44.0) Random Glucose 143 MG/DL (74-106) Test 02/10/17 10:00 02/11/17 05:45 02/11/17 12:20 Activated Partial Thromboplast Time 36.3 SEC (24.3-30.1) White Blood Count 16.6 TH/MM3 (4.0-11.0) Red Blood Count 2.87 MIL/MM3 (4.50-5.90) Hemoglobin 8.4 GM/DL (13.0-17.0) Hematocrit 25.4 % (39.0-51.0) Neutrophils (%) (Auto) 82.5 % (16.0-70.0) Lymphocytes (%) (Auto) 7.4 % (9.0-44.0) Neutrophils # (Auto) 13.7 TH/MM3 (1.8-7.7) Monocytes # (Auto) 1.3 TH/MM3 (0-0.9) Blood Urea Nitrogen 25 MG/DL (7-18) Creatinine 1.75 MG/DL (0.60-1.30) Albumin 1.2 GM/DL (3.4-5.0) Calcium Level 8.0 MG/DL (8.5-10.1) Aspartate Amino Transf (AST/SGOT) 49 U/L (15-37) Alanine Aminotransferase (ALT/SGPT) 9 U/L (12-78) Estimat Glomerular Filtration Rate 49 ML/MIN (>89) PE at Discharge GENERAL: Patient seems more alert , follows commands SKIN: Warm and dry. HEAD: Atraumatic. Normocephalic. EYES: Pupils equal and round. No scleral icterus. No injection or drainage. EOMI ENT: No nasal bleeding or discharge. Mucous membranes pink and moist. TONGUE IS MIDLINE NECK: Trachea midline. No JVD. SUPPLE CARDIOVASCULAR: IRRegular rate and rhythm. S1, S2 NO S3 OR S4 RESPIRATORY: No accessory muscle use. Clear to auscultation. Breath sounds equal bilaterally. GASTROINTESTINAL: Abdomen soft, non-tender, nondistended. Hepatic and splenic margins not palpable. MUSCULOSKELETAL: Extremities without clubbing, cyanosis, or edema. No obvious deformities. NEUROLOGICAL: Awake and alert. No obvious cranial nerve deficits. Motor grossly within normal limits. Five out of 5 muscle strength in the arms and legs ON RIGHT 4/4 ON LEFT SIDE. Normal speech. PSYCHIATRIC: Appropriate mood and affect; insight and judgment normal.SOME CONFUSION Pt update on day of discharge Patient has no complaints today. Feeling well. Hospital Course 56-year-old male admitted secondary to bacteremia, fever, A. fib RVR, left arm DVT, encephalopathy. Evaluation and treatment course detailed below: Severe Anemia Iliopsoas hematoma The patient is status post transfusion of a total of 9 units of packed blood cells. Hematology has been consulted for evaluation of hemolytic anemia, however patient has haptoglobin and reticulocyte count within normal limits, bilirubin within normal limits and LDH mildly elevated. Ultrasound the liver shows left upper quadrant fluid collection. GI consulted, offered EGD/colonoscopy but patient refused. CT abdomen and pelvis obtained on 02/08/17 showed iliopsoas hematoma. Gen. surgery consulted and recommended conservative management and discontinuation of IV heparin was patient was having for an acute upper extremity DVT. H&H stabilized. Acute Metabolic Encephalopathy Agitated Delirium History of Previous CVA with left hemiparesis Delirium Last ammonia level checked on 02/01 normal. 02/09 discussed case with psychiatry - Patient is able to make medical decisions at this time and is competent. Encephalopathy and delirium resolved. Severe combined Metabolic and respiratory acidosis Resolved A flutter/fibrillation with RVR Elevated troponin Coronary artery disease Rate has been difficult to control. The patient was started on amiodarone. He is to continue on Cardizem and metoprolol as well. NO anticoagulation due to BL psoas hematoma. Left upper extremity DVT Started on IV heparin Follow clinically Heparin discontinued on 02/09 due to acute drop in hemoglobin and iliopsoas hematomas. Diabetes mellitus type 2 Blood sugar seems to be stable. Continue SSI with insulin NovoLog. Diabetic diet. Sepsis Resolved MSSA bacteremia - had vascath placed 01/10, removed 01/15 - has DVT LUE including LIJ and LSC, and previously had vascath and suspicious for infected thrombophlebitis - has basilar opacities, ?fluid; not coughing or congested, less likely PNA - BC still (+) - Negative LIGIA Since BC have been negative, ID switched to IV Ancef Keep on Rifampin while in the hospital Follow temps He will need 6 weeks IV Abx from date of last (+) BC - if no other new (+) BC, anticipated end date is Mar 11 Labs while on Abx: CBC, creat, If no fever, will place PICC tomorrow - ID D/W renal, ok for PICC on this patient Patient is discharged on Ancef per ID recommendations. Acute kidney injury Anasarca. Patient has chronic kidney disease and develop ABNER. Also had metabolic acidosis and Hyperkalemia. Patient has HD 1 session then ARF resolved ATN resolving, continue Bumex, change oral. Pt Condition on Discharge: Good Discharge Disposition: Discharge to SNF Discharge Time: > 30 minutes Discharge Instructions DIET: Follow Instructions for: Heart Healthy Diet Activities you can perform: Regular-No Restrictions New Medications: Bumetanide (Bumetanide) 1 Mg Tab 1 MG PO BID, #60 TAB 0 Refills Amiodarone (Amiodarone) 200 Mg Tab 200 MG PO DAILY, #[address] (Aspirin DR) 81 Mg Tabdr 81 MG PO DAILY, #30 TAB Clonidine 168 HR Patch ([id number] 168 HR Patch) 0.3 Mg/24 Hr Patch 1 PATCH T-DERMAL Q7D, #30 PATCH Diltiazem (Cardizem) 30 Mg Tab 30 MG PO Q6HR, #120 TAB Metoprolol Tartrate (Lopressor) 50 Mg Tab 100 MG PO BID, #60 TAB Quetiapine (Seroquel) 25 Mg Tab 25 MG PO BID, #60 TAB Continued Medications: Albuterol 8.5 GM Inh (Proair Hfa 8.5 GM Inh) 90 Mcg/Act Aer 2 PUFF INH Q4-6H PRN for SHORTNESS OF BREATH, #1 INHALER 0 Refills 108 mcg/actuation Atorvastatin (Atorvastatin) 80 Mg Tab 80 MG PO HS for Cholesterol Management, #30 TAB 3 Refills Glimepiride (Glimepiride) 4 Mg Tab 4 MG PO DAILY for Blood Sugar Management, #60 TAB 3 Refills Nitroglycerin SL (Nitroglycerin SL) 0.4 Mg Subl 0.4 MG SL DIRECTED PRN for CHEST PAIN, #100 TAB.SL 0 Refills ONE TABLET UNDER THE TONGUE NEEDED FOR CHEST PAIN, MAY REPEAT EVERY FIVE MINUTES FOR A TOTAL OF 3 DOSES OR CALL 911 IF NO RELIEF Sitagliptin (Januvia) 25 Mg Tab 50 MG PO DAILY for Blood Sugar Management, #30 TAB 0 Refills Discontinued Medications: Acetaminophen (Tylenol) 325 Mg Tab 650 MG PO Q6H PRN for PAIN SCALE 1 TO 4, #20 TAB 0 Refills Carvedilol (Coreg) 12.5 Mg Tab 12.5 MG PO Q12HR for HTN for 30 Days, TAB Gabapentin (Gabapentin) 300 Mg Cap 300 MG PO BID, #60 CAP 3 Refills Lisinopril (Lisinopril) 5 Mg Tab 5 MG PO DAILY for Blood Pressure Management, #30 TAB 3 Refills Loperamide (Loperamide) 2 Mg Cap 2 MG PO DIRECTED PRN for DIARRHEA, CAP 0 Refills One capsule after each loose stool. Not to exceed 8 capsules per day. Tho Bourne MD Feb 11, 2017 14:04
[2017-02-11 16:00] VITALS: BP 126/75; PULSE 108; RESP 18; TEMP 96.3; O2SAT 97
== END 2017-02-11 17:17 | DRG 682 ==
LOC: NEPE 12:35 → NEDA 16:57 → HIMN 17:45 → N07A 02-07 16:06
PROVIDERS: ADMIT Family Medicine; ATTEND Family Medicine
PROC: 02HV33Z Insertion of Infusion Device into Superior Vena Cava, Percutaneous Approach (ICD-10-PCS; principal; 2017-01-10)
PROC: 5A1D70Z Performance of Urinary Filtration, Intermittent, Less than 6 Hours Per Day (ICD-10-PCS; 2017-01-10)
PROC: 30233N1 Transfusion of Nonautologous Red Blood Cells into Peripheral Vein, Percutaneous Approach (ICD-10-PCS; 2017-01-10)
DX: N17.0 Acute kidney failure with tubular necrosis (principal); G93.41 Metabolic encephalopathy; A41.01 Sepsis due to Methicillin susceptible Staphylococcus aureus; E87.4 Mixed disorder of acid-base balance; E46 Unspecified protein-calorie malnutrition; F05 Delirium due to known physiological condition; I48.3 Typical atrial flutter; E11.22 Type 2 diabetes mellitus with diabetic chronic kidney disease; D62 Acute posthemorrhagic anemia; I48.91 Unspecified atrial fibrillation; I82.622 Acute embolism and thrombosis of deep veins of left upper extremity; Z68.41 Body mass index [BMI] 40.0-44.9, adult; I69.354 Hemiplegia and hemiparesis following cerebral infarction affecting left non-dominant side; E11.51 Type 2 diabetes mellitus with diabetic peripheral angiopathy without gangrene; E87.5 Hyperkalemia; E86.0 Dehydration; I25.10 Atherosclerotic heart disease of native coronary artery without angina pectoris; I12.9 Hypertensive chronic kidney disease with stage 1 through stage 4 chronic kidney disease, or unspecified chronic kidney disease; R00.0 Tachycardia, unspecified; E78.5 Hyperlipidemia, unspecified; J44.9 Chronic obstructive pulmonary disease, unspecified; E11.65 Type 2 diabetes mellitus with hyperglycemia; N18.3 Chronic kidney disease, stage 3 (moderate); Z66 Do not resuscitate; E66.9 Obesity, unspecified; M79.81 Nontraumatic hematoma of soft tissue; E83.42 Hypomagnesemia; E83.51 Hypocalcemia; I08.1 Rheumatic disorders of both mitral and tricuspid valves; R29.6 Repeated falls; F10.21 Alcohol dependence, in remission; Z91.19 Patient's noncompliance with other medical treatment and regimen; Z79.84 Long term (current) use of oral hypoglycemic drugs; Z78.1 Physical restraint status; I25.2 Old myocardial infarction; Z87.891 Personal history of nicotine dependence
CPT/HCPCS: 36430; 36556; 36569; 36600; 70450; 71010; 74000; 74176; 76705; 76775; 76937; 80048; 80053; 80074; 81001; 82140; 82330; 82728; 82805; 82948; 83010; 83036; 83540; 83550; 83605; 83615; 83735; 84100; 84155; 84439; 84443; 84484; 85007; 85014; 85018; 85025; 85027; 85044; 85610; 85730; 86403; 86850; 86880; 86900; 86901; 86920; 87040; 87086; 87147; 87186; 87205; 87641; 90935; 93005; 93306; 93312; 93320; 93325; 93971; 94150; 96374; 96375; J0282; J0360; J0456; J0610; J0690; J0692; J1170; J1580; J1630; J1644; J1815; J2405; J2700; J2765; J3370; J3475; J3480; J7030; J7040; J7050; J7060; P9016; Q9963